=== PATIENT | female | born 1935 | race Caucasian/White ===

== ENCOUNTER 2017-03-25 00:37 | Inpatient (IN) ==
[2017-03-25] MEDS ORDERED: *HR* Morphine 2 MG/ML SYRINGE IVP PRN (04:01)
[2017-03-25] MEDS ORDERED: 0.9 % Sodium Chloride 1,000 ML IVC SCH (04:15)
[2017-03-25 04:37] LABS: Basophils % 0.2 %; Hematocrit 39.5 % (35.3-44.9); Hemoglobin 12.3 g/dL (11.5-15.4); Immature Granulocytes % 0.4 % (0-4); Lymphocytes # 1.2 K/mcL (0.6-4.6); Lymphocytes % 11.6 %; Mean Corpuscular HGB Conc 31.1 g/dL (31.6-35.5); Mean Corpuscular Volume 89.8 fL (83.0-100.0); Monocytes # 0.6 K/mcL (0.0-1.3); Monocytes % 5.6 %; Neutrophils # 8.6 K/mcL (1.6-8.9); Platelet Count 224 K/mcL (140-400); Red Cell Distribution Width 15.5 % (11.5-14.5); Segmented Neutrophils % 82.2 %
[2017-03-25 04:41] LABS: INR 1.1; Prothrombin Time 11.5 Seconds (9.4-12.1)
[2017-03-25 05:01] LABS: Activated Partial Thrombo Time 24.4 Seconds (26.0-36.0)
[2017-03-25 05:05] LABS: Albumin 3.9 g/dL (3.5-5.7); Albumin/Globulin Ratio 1.2 (1.1-2.2); Bilirubin,Total 0.4 mg/dL (0.3-1.0); Calcium 9.4 mg/dL (8.6-10.3); Globulin 3.2 g/dL (2.4-3.5); Total Protein 7.1 g/dL (6.4-8.9)
[2017-03-25] MEDS: Ondansetron 4 MG/2 ML VIAL IVP PRN ×2 (05:05→14:26)
[2017-03-25] MEDS ORDERED: *HR* Heparin 5,000 UNIT/ML VIAL SQ SCH (06:00)
[2017-03-25] MEDS ORDERED: Metoclopramide 10 MG/2 ML VIAL IVP PRN (08:17)
--- NOTE | 2017-03-25 08:28 | Internal Med History&Physical ---
Date of Encounter: 03/25/17 Time of Encounter: 08:25 Assessment and Plan (1) Intractable vomiting Current visit: No Status: Acute Likely related to hiatal hernia. Will give the patient Reglan and Zofran as needed. Appreciate gastroenterology input. Nurses mentioned that patient had coffee grounds emesis. Agent mentioned that there is no fresh blood in the vomitus. No Melena. We will keep the patient for now on protonix drip. Follow H&H. Qualifiers: Qualified Code(s): R11.10 - Vomiting, unspecified (2) UTI (urinary tract infection) Current visit: No Status: Acute Questionable UTI 5 to 15 white blood cells in urine and trace leukocyte esterase however lots of squamous cells. We will keep patient on ceftriaxone and get urine culture. Qualifiers: Qualified Code(s): N39.0 - Urinary tract infection, site not specified; R31.9 - Hematuria, unspecified; R31.9 - Hematuria, unspecified (3) Hypertensive urgency Current visit: No Status: Acute Diastolic blood pressure more than 110. We will get the patient hydralazine is needed. Because of complain of headache I will get a CT scan of the head. Internal Medicine - H&P: HPI Chief complaint: vomiting History of present illness: Ms. Leach is a 81 year old female patient presents to the emergency room today with the main complain of vomiting. For the past day patient has been having intractable vomiting of dark brown material. She denies any vomiting of fresh blood melena or hematochezia. She denies any abdominal pain fever or chills. Patient had similar episodes before and was thought to be related to her hiatal hernia. No chest pain. She did complain of left-sided headache but no other focal neurological deficits. Abdominal CT scan performed at outside facility showed a large hiatal hernia but no other abdominal pathologies Past Med Surg Social Fam HX - Past Medical History Medical history: hypertension, thyroid disease Psychiatric history: anxiety - Social History Smoking Status: Former smoker Alcohol use: none Drug use: none Internal Medicine - H&P: Meds Levothyroxine [Synthroid] 25 mcg PO DAILY 02/22/17 [History] Sertraline [Zoloft] 50 mg PO DAILY 02/22/17 [History] Lovastatin [Mevacor] 40 mg PO HS 03/24/17 [History] Ranitidine HCl [Zantac] 150 mg PO BID 03/24/17 [History] 3 Allergy/AdvReac Type Severity Reaction Status Date / Time rosuvastatin [From Crestor] Allergy Hives Verified 03/24/17 20:46 All Systems PM: A 10-system review of systems was performed and is negative for pertinent findings except as documented above in the HPI. Review of systems: 10 point review of systems is negative except for HPI - Constitutional Vitals: Temp Pulse Resp BP Pulse Ox 98.5 F 109 14 143/84 93 03/25/17 07:30 03/25/17 07:46 03/25/17 07:46 03/25/17 07:46 03/25/17 07:46 Exam: Gen.: patient is alert oriented times 3 not in distress. Cardiac: normal S1 S2 no additional sounds are murmurs. Chest: clear to auscultation. Abdomen: soft nontender nondistended. Lower extremity no swelling mucous membranes: moist Neuro: no focal deficits Internal Med - H&P Results - Labs CBC & Chem 7: 03/25/17 04:21 03/25/17 04:21 Labs: Short CBC 03/25/17 Range/Units 04:21 WBC 10.4 (4.3-11.1) K/mcL Hgb 12.3 (11.5-15.4) g/dL Hct 39.5 (35.3-44.9) % Plt Count 224 (140-400) K/mcL Neutrophils # 8.6 (1.6-8.9) K/mcL BMP 03/25/17 04:21 Sodium 144 Potassium 4.0 Chloride 105 Carbon Dioxide 30 H BUN 28 H Creatinine 1.11 Glucose 194 H Calcium 9.4 Liver Function 03/25/17 Range/Units 04:21 Total Bilirubin 0.4 (0.3-1.0) mg/dL AST 37 (13-39) Units/L ALT 23 (7-52) Units/L Alkaline Phosphatase 69 (34-104) Units/L Albumin 3.9 (3.5-5.7) g/dL
[2017-03-25 09:00] LABS: Hematocrit 40.9 % (35.3-44.9); Hemoglobin 12.6 g/dL (11.5-15.4)
[2017-03-25] MEDS ORDERED: cefTRIAXone 1,000 MG in Water for inj. (sterile) 10 ML IVP SCH (09:00)
[2017-03-25] MEDS ORDERED: Levothyroxine 25 MCG TABLET PO SCH (09:00)
[2017-03-25] MEDS: Pantoprazole 40 MG in 0.9 % Sodium Chloride Mini Bag 100 ML IVC SCH ×4 (09:43→23:30)
[2017-03-25] MEDS ORDERED: *HR* Promethazine 25 MG/ML VIAL IVP PRN ×2 (11:26→18:25)
[2017-03-25] MEDS ORDERED: *HR* Promethazine 25 MG/ML VIAL ONE (11:27)
[2017-03-25 14:23] LABS: Hematocrit 43.6 % (35.3-44.9); Hemoglobin 13.4 g/dL (11.5-15.4)
--- NOTE | 2017-03-25 14:35 | General Surgery Consult Note ---
Addendum entered and electronically signed by Adeline Bingham CNP 03/25/17 15: 49: 1. EKG consistent with atrial fib w/RVR, NSSTT wave changes at 1454 rates varying from 120s-140s. Bedside RN did not notify SOLAR SALES ENERGY ADVISOR of findings nor that EKG had been completed. This SOLAR SALES ENERGY ADVISOR reviewed EKG and subsequently Dr. Cameron notified. Will consult cardiology. 2. Dr. Pineda (radiology) notified this SOLAR SALES ENERGY ADVISOR that patient "aspirated all of her contrast and could not complete the upper GI." This SOLAR SALES ENERGY ADVISOR placed stat CXR 2-view orders and also notified Dr. Cameron (primary medicine of findings). Surgery will follow along with you, but again as noted below no surgical intervention is indicated at this time and any future procedures would be pending cardiovascular and pulmonary stabilization. Will review with Dr. Castillo. Original Note: <Adeline Bingham - Last Filed: 03/25/17 14:32> Date of Encounter: 03/25/17 Time of Encounter: 14:32 Assessment and Plan (1) Abdominal pain Current Visit: No Status: Acute Differential diagnosis include hiatal hernia vs acute gallbladder process vs upper G.I. bleed Plan: staff upper G.I. with Gastro gas and now to evaluate hiatal hernia noted/agree with right upper quadrant ultrasound per primary medicine hemoglobin is stable at this time; repeat and labs NPO IV fluids per primary team serial abdominal exams agree with PPI DVT prophylaxis per primary team further recommendations pending above Qualifiers: Abdominal location: upper abdomen, unspecified Qualified Code(s): R10.10 - Upper abdominal pain, unspecified (2) Intractable vomiting Current Visit: Yes Status: Acute Work up as detailed above. PRN antiemetics per primary team Qualifiers: Vomiting type: unspecified Nausea presence: with nausea Qualified Code(s) : R11.2 - Nausea with vomiting, unspecified (3) UTI (urinary tract infection) Current Visit: Yes Status: Acute Management per primary team Qualifiers: Qualified Code(s): N39.0 - Urinary tract infection, site not specified (4) Irregular heartbeat Current Visit: Yes Status: Acute Patient's cardiovascular history is unclear at this time. She denies any cardiovascular history however for medical review, her family doctor notes a "mild [place]" with no further details listed. Upon my examination she does have an irregularly irregular heartbeat as well as 3/6 systolic murmurs at the base with radiation to carotids vs carotid bruit. I did order an EKG. Recommend cardiovascular consult per primary team for preoperative risk stratification in the setting of possible development of surigcal indicattion ( i.e. hiatal hernia or cholecystectomy). History of Present Illness Consult date: 03/25/17 (Dr. Kayden Castillo) Reason for consult: other (Vomiting; hiatal hernia) Requesting physician: Doyle Cameron History of present illness: Subjective information obtained via patient interview, interview with daughters who are at bedside, and past medical review. Reason for Consult: intractable vomiting, concern for hiatal hernia, concern for cholelithiasis Anne Marie is an 81-year-old female with a past medical history of hypercholesterolemia, arthritis, osteopenia, iron deficiency, GERD, hypothyroidism, anxiety and depression, diverticulitis, anemia (for which she has previously required transfusion), in Guillain-William syndrome, colonic polyps , ASHD ("mild [place]" per family doctor note), hiatal hernia(known for "quite some time" per daughters at bedside). she has a surgical history of colonoscopy, total hysterectomy, and left ankle surgery. Her family history includes her father is 2/2 ETOH, mother is with diabetes, denies a colon cancer history. She denies alcohol, smoking, or drug use history. She was seen by Dr. Castillo in the office in 2013 at which time she reported her most previous colonoscopy was approximately 10 years ago and noted diverticulitis. She was recommended to complete a diagnostic colonoscopy. Per record review, an attempt was made to schedule a diagnostic colonoscopy in 2014 but patient refused. She presented to the emergency department on 03/24/2017 for complaints of vomiting dark brown material. She denied coffee ground emesis or cherri red blood in her vomitus. She reported that her abdominal discomfort and vomiting began shortly after eating on that date. Per chart review sheet also had left- sided headache but no other focal neurological deficits for which she had a CT of the head which indicated no acute intracranial abnormalities. She was admitted for further workup and support. Her hospital course thus far has included CT of the abdomen and pelvis without contrast which noticed a large hiatal hernia distended with particulate food material, cold diocese with multiple small calcified stones, left: diverticulosis with no evidence of diverticulitis, left and inguinal hernia containing a loop of rectosigmoid colon. Her hemoglobin is stable at 13.4, her white blood cell count is normal, bilirubin, AST, ALT, alkaline phosphatase, and lipase are all within normal limits. Currently, she denies headache, fever, chills, chest pain, shortness of breath, urinary signs or symptoms, black, bloody, or tarry stool, or changes in bowel habits. She reports feeling of lightheadedness, nausea, abdominal pain in the right upper quadrant that wraps around to her back, and vomiting dark material. Past Med Surg Social Fam HX - Past Medical History Source: patient, old records reviewed, obtained from family Medical history: arthritis, coronary artery disease, GERD, hyperlipidemia, hypertension, myocardial infarction, thyroid disease, other (Iron def anemia) Psychiatric history: anxiety, depression - Past Surgical History Surgical History: DARLENE/BSO, other (Left ankle surgery) - Social History Smoking Status: Former smoker Alcohol use: none Drug use: none - Family History Father Living Status: Mother Living Status: Medications and Allergies Levothyroxine [Synthroid] 25 mcg PO DAILY 02/22/17 [History] Sertraline [Zoloft] 50 mg PO DAILY 02/22/17 [History] Lovastatin [Mevacor] 40 mg PO HS 03/24/17 [History] Ranitidine HCl [Zantac] 150 mg PO BID 03/24/17 [History] Ascorbic Acid/Vit B12/Zinc [Sm Zinc Plus Lozenge] 1 tab PO DAILY 03/25/17 [ History] Aspirin [Lo-Dose Aspirin EC] 81 mg PO DAILY 03/25/17 [History] Ferrous Sulfate [Iron] 81 mg PO DAILY 03/25/17 [History] Multivitamin [One Daily Multivitamin] 1 tab PO DAILY 03/25/17 [History] Yale-3 Fatty Acids [Fish Oil] 300 mg PO DAILY 03/25/17 [History] 3 Allergy/AdvReac Type Severity Reaction Status Date / Time rosuvastatin [From Crestor] Allergy Hives Verified 03/24/17 20:46 Review of Systems All systems PM: reviewed and no additional remarkable complaints except as stated All systems PM: A 10-system review of systems was performed and is negative for pertinent findings except as documented above in the HPI. General Surgery Exam Initial Vital Signs Temp Pulse Resp BP Pulse Ox 97.6 F 102 16 162/106 93 03/25/17 02:27 03/25/17 02:27 03/25/17 02:27 03/25/17 02:27 03/25/17 02:27 - General physical appearance no distress, moderate pain, other (Ill appearing) - Eyes normal ocular movement - ENT normal mucosa, no congestion, atraumatic, normocephalic - Neck trachea midline, no venous distension. negative: no bruits (Bruit noted) - Respiratory normal expansion, normal respiratory effort, clear to auscultation - Cardiovascular Cardiovascular exam: Present: irregular rhythm, murmurs (3/6 sytolic murmur at the base with radiation to carotids vs carotid bruit) - Abdomen Abdomen general surgery: Present: bowel sounds present, soft, tender Abdominal Tenderness: Present: RUQ, LUQ Hernia: Present: none - Integumentary Integumentary general surgery: Present: warm and dry, no abnormal pigmentation - Neurologic Present: CN 2-12 grossly intact, normal coordination, normal sensation - Musculoskeletal Present: normal posture - Psychiatric Psychiatric general surgery: Present: A&Ox3, appropriate, oriented to person, oriented to place, oriented to time, speech is normal, memory intact Exam Initial Vital Signs Temp Pulse Resp BP Pulse Ox 97.6 F 102 16 162/106 93 03/25/17 02:27 03/25/17 02:27 03/25/17 02:27 03/25/17 02:27 03/25/17 02:27 Results - Labs 03/25/17 13:51 03/25/17 04:21 Abnormal lab results MCHC 31.1 g/dL (31.6-35.5) L 03/25/17 04:21 RDW 15.5 % (11.5-14.5) H 03/25/17 04:21 APTT 24.4 Seconds (26.0-36.0) L 03/25/17 04:21 Carbon Dioxide 30 mEq/L (23-29) H 03/25/17 04:21 BUN 28 mg/dL (8-23) H 03/25/17 04:21 Est GFR ( Amer) 57 (> 60) L 03/25/17 04:21 Est GFR (Non-Af Amer) 47 (> 60) L 03/25/17 04:21 Glucose 194 mg/dL (70-105) H 03/25/17 04:21 Calculated Osmolality 309 (280-300) H 03/25/17 04:21 Diabetes panel 03/25/17 Range/Units 04:21 Sodium 144 (136-145) mEq/L Potassium 4.0 (3.5-5.1) mEq/L Chloride 105 (98-107) mEq/L Carbon Dioxide 30 H (23-29) mEq/L BUN 28 H (8-23) mg/dL Creatinine 1.11 (0.60-1.20) mg/dL Glucose 194 H (70-105) mg/dL Calcium 9.4 (8.6-10.3) mg/dL AST 37 (13-39) Units/L ALT 23 (7-52) Units/L Alkaline Phosphatase 69 (34-104) Units/L Albumin 3.9 (3.5-5.7) g/dL Calcium panel 03/25/17 Range/Units 04:21 Calcium 9.4 (8.6-10.3) mg/dL Albumin 3.9 (3.5-5.7) g/dL Pituitary panel 03/25/17 Range/Units 04:21 Sodium 144 (136-145) mEq/L Potassium 4.0 (3.5-5.1) mEq/L Chloride 105 (98-107) mEq/L Carbon Dioxide 30 H (23-29) mEq/L BUN 28 H (8-23) mg/dL Creatinine 1.11 (0.60-1.20) mg/dL Glucose 194 H (70-105) mg/dL Calcium 9.4 (8.6-10.3) mg/dL Adrenal panel 03/25/17 Range/Units 04:21 Sodium 144 (136-145) mEq/L Potassium 4.0 (3.5-5.1) mEq/L Chloride 105 (98-107) mEq/L Carbon Dioxide 30 H (23-29) mEq/L BUN 28 H (8-23) mg/dL Creatinine 1.11 (0.60-1.20) mg/dL Glucose 194 H (70-105) mg/dL Calcium 9.4 (8.6-10.3) mg/dL Total Bilirubin 0.4 (0.3-1.0) mg/dL AST 37 (13-39) Units/L ALT 23 (7-52) Units/L Alkaline Phosphatase 69 (34-104) Units/L Albumin 3.9 (3.5-5.7) g/dL All other labs normal. - Imaging CT scan - abdomen: report reviewed CT scan - pelvis: report reviewed Consult Discharge Plan - Plan Referrals: Memo Cody MD [Primary Care Provider] - <Kayden Castillo - Last Filed: 03/25/17 19:21> Date of Encounter: 03/25/17 Review of Systems All systems PM: A 10-system review of systems was performed and is negative for pertinent findings except as documented above in the HPI. General Surgery Exam Initial Vital Signs Temp Pulse Resp BP Pulse Ox 97.6 F 102 16 162/106 93 03/25/17 02:27 03/25/17 02:27 03/25/17 02:27 03/25/17 02:27 03/25/17 02:27 Exam Initial Vital Signs Temp Pulse Resp BP Pulse Ox 97.6 F 102 16 162/106 93 03/25/17 02:27 03/25/17 02:27 03/25/17 02:27 03/25/17 02:27 03/25/17 02:27 Results - Labs 03/25/17 13:51 03/25/17 04:21 Abnormal lab results MCHC 31.1 g/dL (31.6-35.5) L 03/25/17 04:21 RDW 15.5 % (11.5-14.5) H 03/25/17 04:21 APTT 24.4 Seconds (26.0-36.0) L 03/25/17 04:21 Carbon Dioxide 30 mEq/L (23-29) H 03/25/17 04:21 BUN 28 mg/dL (8-23) H 03/25/17 04:21 Est GFR ( Amer) 57 (> 60) L 03/25/17 04:21 Est GFR (Non-Af Amer) 47 (> 60) L 03/25/17 04:21 Glucose 194 mg/dL (70-105) H 03/25/17 04:21 POC Glucose 144 (58-89) H 03/25/17 18:22 Calculated Osmolality 309 (280-300) H 03/25/17 04:21 Diabetes panel 03/25/17 Range/Units 04:21 Sodium 144 (136-145) mEq/L Potassium 4.0 (3.5-5.1) mEq/L Chloride 105 (98-107) mEq/L Carbon Dioxide 30 H (23-29) mEq/L BUN 28 H (8-23) mg/dL Creatinine 1.11 (0.60-1.20) mg/dL Glucose 194 H (70-105) mg/dL Calcium 9.4 (8.6-10.3) mg/dL AST 37 (13-39) Units/L ALT 23 (7-52) Units/L Alkaline Phosphatase 69 (34-104) Units/L Albumin 3.9 (3.5-5.7) g/dL Calcium panel 03/25/17 Range/Units 04:21 Calcium 9.4 (8.6-10.3) mg/dL Albumin 3.9 (3.5-5.7) g/dL Pituitary panel 03/25/17 Range/Units 04:21 Sodium 144 (136-145) mEq/L Potassium 4.0 (3.5-5.1) mEq/L Chloride 105 (98-107) mEq/L Carbon Dioxide 30 H (23-29) mEq/L BUN 28 H (8-23) mg/dL Creatinine 1.11 (0.60-1.20) mg/dL Glucose 194 H (70-105) mg/dL Calcium 9.4 (8.6-10.3) mg/dL Adrenal panel 03/25/17 Range/Units 04:21 Sodium 144 (136-145) mEq/L Potassium 4.0 (3.5-5.1) mEq/L Chloride 105 (98-107) mEq/L Carbon Dioxide 30 H (23-29) mEq/L BUN 28 H (8-23) mg/dL Creatinine 1.11 (0.60-1.20) mg/dL Glucose 194 H (70-105) mg/dL Calcium 9.4 (8.6-10.3) mg/dL Total Bilirubin 0.4 (0.3-1.0) mg/dL AST 37 (13-39) Units/L ALT 23 (7-52) Units/L Alkaline Phosphatase 69 (34-104) Units/L Albumin 3.9 (3.5-5.7) g/dL All other labs normal. - Attending Attestation The patient was seen and evaluated. She has abnormal CAT scan with a very large hiatal hernia. The patient has known about this for many years. She states that she has not had problems with her hiatal hernia however she has had difficulty with anemia, weight loss, dysphagia, and early satiety which I would typify as significant problems with her hiatal hernia. I personally reviewed the CAT scan. This is likely a large paraesophageal hernia. At this point we tried to perform testing earlier today to rule out acute gastric obstruction from volvulus. The patient aspirated. She is now in the intensive unit. I was able to evaluate her in the intensive care unit. She is not having any breathing difficulties. Tonight she is having no abdominal pain. She has nasogastric tube in place. Likely the stomach is decompressed. She has acute onset atrial fibrillation with RVR. She likely has intermittent gastric obstruction and possibly gastric volvulus. She will require acute treatment for her atrial fibrillation RVR. 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
[2017-03-25] MEDS ORDERED: *HR* Promethazine 25 MG/ML VIAL IVP ONE (14:42)
[2017-03-25] MEDS ORDERED: *HR* Digoxin 0.5 MG/2 ML AMPUL IVP ONE ×2 (15:53→18:25)
[2017-03-25] MEDS ORDERED: *HR* Metoprolol 5 MG/5 ML VIAL IVP SCH ×2 (16:15→18:00)
[2017-03-25] MEDS ORDERED: *HR* Metoprolol 5 MG/5 ML VIAL IVP ONE (16:16)
--- NOTE | 2017-03-25 16:22 | Event Note ---
Date of Encounter: 03/25/17 Time of Encounter: 16:20 - Cardiology Event Note Discussed with Dr. Bernard, call for afib RVR 110's - 120's on tele currently in setting of intractable vomiting and concern for aspiration. Meds reviewed, appears to have not received IV digoxin x 1 as ordered or any doses of IV Lopressor today. Will increase IV Lopressor to 5mg every 6 hrs, first dose now- - current SBP 120's. Currently not taking PO Meds. Suspect afib RVR in response to N&V. Plan to check echo in am once HR controlled. Complete consulted to be completed in am.
[2017-03-25] MEDS ORDERED: Piperacillin/Tazobactam 3.375 GM/200 ML BAG IVPB SCH (17:00)
--- NOTE | 2017-03-25 17:37 | Pulmonology Consult Note ---
<Tom Reeves - Last Filed: 03/25/17 18:15> Date of Encounter: 03/25/17 Time of Encounter: 17:35 Assessment and Plan (1) Aspiration into respiratory tract Current Visit: Yes Status: Acute Patient was noted to aspirate all of her contrast and could not complete the upper GI study. NG tube was placed. Subsequent chest x-ray demonstrates opacities consistent with aspiration. On evaluation, patient is in no acute distress and denies any shortness of breath or chest pain. Patient however does have some bilateral crackles. Vital signs stable Plan: Oxygen supplementation Nothing by mouth NG tube Patient will need a speech therapy consult Patient is started on Zosyn for anaerobic coverage There is a high concern for developing pneumonitis will closely monitor throughout the night Qualifiers: Encounter type: initial encounter Qualified Code(s): T17.908A - Unspecified foreign body in respiratory tract, part unspecified causing other injury, initial encounter (2) New onset atrial fibrillation Current Visit: Yes Status: Acute Status post upper GI series involving aspiration and nausea and vomiting, patient was seen to have new onset A. fib with RVR 120s Cardiology was notified and recommended Lopressor 5 mg once followed by 5 mg IV every 6 hours - Full consultation and recommendations will follow tomorrow morning - Ordered echo for the morning - Cardiac Monitoring - HR down to 90s after transfer (3) Intractable vomiting Current Visit: Yes Status: Acute Pending right upper quadrant ultrasound CCT of the abdomen and pelvis without contrast: - Large hiatal hernia distended with particulate food material, cholelithiasis with multiple small calcified stones as well as left-sided diverticulosis. - There is a left inguinal hernia containing a loop of rectosigmoid colon. LFTs unremarkable Negative lipase PPI Nothing by mouth IVF Serial abdominal exams NG tube - management per surgery team Qualifiers: Vomiting type: unspecified Nausea presence: with nausea Qualified Code(s) : R11.2 - Nausea with vomiting, unspecified (4) UTI (urinary tract infection) Current Visit: Yes Status: Acute IV Zosyn will cover Appears to be resolving Denies any dysuria Qualifiers: Urinary tract infection type: acute cystitis Hematuria presence: without hematuria Qualified Code(s): N30.00 - Acute cystitis without hematuria (5) Hiatal hernia Current Visit: Yes Status: Acute Management per surgery team (6) DVT prophylaxis Current Visit: Yes Status: Acute Heparin subcutaneous 5000 units every 12 hours History of Present Illness History of present illness: Ms. Leach is a very pleasant 81-year-old female with a past history of hiatal hernia, hypercholesterolemia, arthritis, osteopenia, iron deficiency, GERD, hypothyroidism, anxiety, depression, diverticulitis and anemia who presented to the [facility] emergency department on 03/24/17 complaints of intractable vomiting of dark brown material. She denied any coffee-ground emesis or cherri blood in her vomitus. Additionally, she reported that her abdominal discomfort and vomiting began shortly after eating. Patient has a [id number] smoking history but she quit roughly 10 years ago. She denies any alcohol or drug use. She was really admitted for further workup and intervention. CT of the abdomen and pelvis without contrast demonstrated a large hiatal hernia distended with particulate food material, cholelithiasis with multiple small calcified stones as well as left-sided diverticulosis. There is a left inguinal hernia containing a loop of rectosigmoid colon. Initial lab work demonstrated hemoglobin stable at 13.4, no leukocytosis, normal liver enzymes as well as negative lipase. She was also found to have a UTI and was started on ceftriaxone. Right upper quadrant ultrasound pending. Gen. surgery was consulted and recommended upper GI with gastro. Of note, during the upper GI series patient was noted to aspirate all of her contrast and could not complete the upper GI study. NG tube was placed. At that time, patient additionally was found to be in new A. fib with RVR with heart rate in the 120s and cardiology was consulted. Subsequent chest x-ray demonstrates opacities consistent with aspiration. There is a concern for possible developing pneumonitis and thus, pulmonary/critical care team was consulted. On evaluation, patient is in no acute distress and denies any shortness of breath or chest pain. Patient however does have some bilateral crackles and given her new A. fib with RVR in the setting of aspiration/intractable vomiting , we will transfer her to the dentist care unit for close monitoring throughout the night. Past Med Surg Social Fam HX - Past Medical History Medical history: arthritis, coronary artery disease, GERD, hyperlipidemia, hypertension, myocardial infarction, thyroid disease, other (Iron def anemia) Psychiatric history: anxiety, depression - Past Surgical History Surgical History: DARLENE/BSO, other (Left ankle surgery) - Social History Smoking Status: Former smoker Alcohol use: none Drug use: none - Family History Father Living Status: Mother Living Status: Medications and Allergies Levothyroxine [Synthroid] 25 mcg PO DAILY 02/22/17 [History] Sertraline [Zoloft] 50 mg PO DAILY 02/22/17 [History] Lovastatin [Mevacor] 40 mg PO HS 03/24/17 [History] Ranitidine HCl [Zantac] 150 mg PO BID 03/24/17 [History] Ascorbic Acid/Vit B12/Zinc [Sm Zinc Plus Lozenge] 1 tab PO DAILY 03/25/17 [ History] Aspirin [Lo-Dose Aspirin EC] 81 mg PO DAILY 03/25/17 [History] Ferrous Sulfate [Iron] 81 mg PO DAILY 03/25/17 [History] Multivitamin [One Daily Multivitamin] 1 tab PO DAILY 03/25/17 [History] [place]-3 Fatty Acids [Fish Oil] 300 mg PO DAILY 03/25/17 [History] 3 Allergy/AdvReac Type Severity Reaction Status Date / Time rosuvastatin [From Crestor] Allergy Hives Verified 03/24/17 20:46 All Systems: A 10-system review of systems was performed and is negative for pertinent findings except as documented above in the HPI. - Constitutional Constitutional: no fever(s) - EENT Nose, mouth and throat: no headache(s) - Cardiovascular Cardiovascular: no chest pain - Respiratory Respiratory: no cough - Gastrointestinal Gastrointestinal: no abdominal pain - Genitourinary Genitourinary: no dysuria - Musculoskeletal Musculoskeletal: no weakness - Neurological Neurological: no headache(s) - Psychiatric Psychiatric: anxiety - Endocrine Endocrine: no palpitations Physical Examination Vital Signs: Vital Signs, Last 4 Hours Temp Pulse Resp BP Pulse Ox 03/25/17 16:38 97.9 F 114 20 125/73 94 General appearance: no acute distress Eyes: nonicteric ENT: oropharynx moist (NGT present) Effort: normal Inspection: normal Auscultation: right: diminished breath sounds (crackles) Cardiovascular: irregular rhythm Gastrointestinal: normoactive bowel sounds, soft, non-tender, non-distended Integumentary: normal Extremities: no cyanosis, no edema, no clubbing Musculoskeletal: no deformities, ROM normal normal mental status, non-focal exam mood appropriate, affect normal Results - Laboratory Findings CBC and BMP: 03/25/17 13:51 03/25/17 04:21 PT/INR, D-dimer PT 11.5 Seconds (9.4-12.1) 03/25/17 04:21 Abnormal lab findings: Abnormal lab results MCHC 31.1 g/dL (31.6-35.5) L 03/25/17 04:21 RDW 15.5 % (11.5-14.5) H 03/25/17 04:21 APTT 24.4 Seconds (26.0-36.0) L 03/25/17 04:21 Carbon Dioxide 30 mEq/L (23-29) H 03/25/17 04:21 BUN 28 mg/dL (8-23) H 03/25/17 04:21 Est GFR ( Amer) 57 (> 60) L 03/25/17 04:21 Est GFR (Non-Af Amer) 47 (> 60) L 03/25/17 04:21 Glucose 194 mg/dL (70-105) H 03/25/17 04:21 Calculated Osmolality 309 (280-300) H 03/25/17 04:21 - Diagnostic Findings Chest x-ray: report reviewed, image reviewed - Clinical Findings Intake & Output: Intake & Output 03/25/17 03/25/17 03/25/17 07:59 15:59 23:59 Intake Total 0 / 0 100 / 100 Output Total 0 / 0 300 / 300 Balance 0 / 0 -200 / -200 Weight 68 kg Consult Discharge Plan - Plan Referrals: Memo Cody MD [Primary Care Provider] - <Piotr Francois - Last Filed: 03/25/17 21:45> Date of Encounter: 03/25/17 All Systems: A 10-system review of systems was performed and is negative for pertinent findings except as documented above in the HPI. Physical Examination Vital Signs: Vital Signs, Last 4 Hours Temp Pulse Resp BP Pulse Ox 03/25/17 18:41 102 03/25/17 18:28 95 03/25/17 18:13 98.6 F 102 18 157/73 95 03/25/17 16:38 97.9 F 114 20 125/73 94 Results - Laboratory Findings CBC and BMP: 03/25/17 20:20 03/25/17 04:21 PT/INR, D-dimer PT 11.5 Seconds (9.4-12.1) 03/25/17 04:21 Abnormal lab findings: Abnormal lab results MCHC 31.1 g/dL (31.6-35.5) L 03/25/17 04:21 RDW 15.5 % (11.5-14.5) H 03/25/17 04:21 APTT 24.4 Seconds (26.0-36.0) L 03/25/17 04:21 Carbon Dioxide 30 mEq/L (23-29) H 03/25/17 04:21 BUN 28 mg/dL (8-23) H 03/25/17 04:21 Est GFR ( Amer) 57 (> 60) L 03/25/17 04:21 Est GFR (Non-Af Amer) 47 (> 60) L 03/25/17 04:21 Glucose 194 mg/dL (70-105) H 03/25/17 04:21 POC Glucose 144 (58-89) H 03/25/17 18:22 Calculated Osmolality 309 (280-300) H 03/25/17 04:21 - Clinical Findings Intake & Output: Intake & Output 03/25/17 03/25/17 03/25/17 07:59 15:59 23:59 Intake Total 0 / 0 100 / 100 0 / 0 Output Total 0 / 0 300 / 300 Balance 0 / 0 -200 / -200 0 / 0 Weight 68 kg - Attending Attestation I examined this patient and my medical decision-making was reviewed with the Resident Physician. I agree with the documented findings, disposition and treatment plan as described except to the extent set forth below. Patient seen and examined. Surgery HOTEL FRONT DESK AGENT consulted us to see this patient and we evaluated patient in . Labs, radiology, chart personally reviewed. Agree with resident's history and physical, assessment, plan with following comments: EDUCATION PROGRAM MANAGER: Patient follows commands, Pulmonary: Acceptable oxygenation and ventilation. At this time patient is not at any immediate risk for respiratory failure, but need close monitoring. Empiric coverage with antibiotic. Discussed with family. Cardiovascular: Rate control for suspect A. fib. Will need cardiac evaluation. Cardiac enzymes and echo GI: Nutrition per dietary and GI prophylaxis per routine. Patient has NG and surgery follow up. Heme: DVT prophylaxis per routine ID: Continue antibiotics and plan to de-escalation Renal; urine out put and renal funtion reviewed Endorcine: blood glucose is monitored Lines: all lines checked and no evidence of infections Skin: skin care to prevent pressure ulcers per nursing routine care Discussed with family at bedside.
--- NOTE | 2017-03-25 17:52 | Event Note ---
Date of Encounter: 03/25/17 Time of Encounter: 17:50 Transfer patient to ICU for gastrograffin aspiration. Hospitalist primary and Cardiology following. NG placed d/t patient vomiting. Verify placement per KUB pending. Continue NG to LIWS and NPO status. Updated daughter's at bedside.
[2017-03-25] MEDS ORDERED: Ondansetron 4 MG/2 ML VIAL IVP PRN (18:25)
[2017-03-25] MEDS ORDERED: Dexamethasone 4 MG/ML VIAL IVP ONE (19:46)
[2017-03-25] MEDS: 0.9 % Sodium Chloride 1,000 ML IVC SCH (19:59)
[2017-03-25 21:19] LABS: Hematocrit 38.8 % (35.3-44.9); Hemoglobin 11.6 g/dL (11.5-15.4)
[2017-03-25] MEDS: *HR* Metoprolol 5 MG/5 ML VIAL IVP SCH (23:30)
[2017-03-26] MEDS: *HR* Metoprolol 5 MG/5 ML VIAL IVP SCH ×6 (00:33→17:55)
[2017-03-26] MEDS: Piperacillin/Tazobactam 3.375 GM/200 ML BAG IVPB SCH ×3 (01:51→17:20)
[2017-03-26] MEDS: Pantoprazole 40 MG in 0.9 % Sodium Chloride Mini Bag 100 ML IVC SCH ×2 (01:53→06:48)
[2017-03-26] MEDS: *HR* Morphine 2 MG/ML SYRINGE IVP PRN (03:18)
[2017-03-26] MEDS: 0.9 % Sodium Chloride 1,000 ML IVC SCH ×3 (03:18→16:13)
[2017-03-26 05:29] LABS: Basophils % 0.1 %; Hematocrit 35.3 % (35.3-44.9); Hemoglobin 10.5 g/dL (11.5-15.4); Immature Granulocytes % 0.1 % (0-4); Lymphocytes # 1.1 K/mcL (0.6-4.6); Lymphocytes % 12.8 %; Mean Corpuscular HGB Conc 29.7 g/dL (31.6-35.5); Mean Corpuscular Hemoglobin 27.6 pg (28.0-33.3); Mean Corpuscular Volume 92.9 fL (83.0-100.0); Mean Platelet Volume 10.2 fL (9.4-12.4); Monocytes # 0.7 K/mcL (0.0-1.3); Monocytes % 8.8 %; Neutrophils # 6.5 K/mcL (1.6-8.9); Platelet Count 177 K/mcL (140-400); Red Cell Distribution Width 16.4 % (11.5-14.5); Segmented Neutrophils % 78.2 %
[2017-03-26 06:07] LABS: Platelet Estimate Normal (Normal)
[2017-03-26 06:10] LABS: BUN/Creatinine Ratio 38 (6-26); Blood Urea Nitrogen 33 mg/dL (8-23); Calcium 7.7 mg/dL (8.6-10.3); Carbon Dioxide 29 mEq/L (23-29); Chloride 113 mEq/L (98-107); Glucose 125 mg/dL (70-105); Magnesium 1.9 mg/dL (1.6-2.6); Osmolality,Calculated 321 (280-300); Potassium 3.2 mEq/L (3.5-5.1); Sodium 151 mEq/L (136-145); eGFR For African Americans > 60 (> 60); eGFR For Non-African Americans > 60 (> 60)
--- NOTE | 2017-03-26 06:50 | Pulmonology Progress Note ---
Addendum entered and electronically signed by Tom Reeves DO 03/26/17 11:45: Starting TPN and adding LDSS insulin coverage. PICC line will be placed. Original Note: <Tom Reeves - Last Filed: 03/26/17 11:37> Date of Encounter: 03/26/17 Time of Encounter: 07:32 Assessment and Plan (1) 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 Current Visit: Yes Status: Acute Patient was noted to aspirate all of her Gastrograffin and could not complete the upper GI study. NG tube was placed. Subsequent chest x-ray demonstrates opacities consistent with aspiration. Patient is hemodynamically stable Noted to have worsening dyspnea and required BiPAP throughout the night. One- time dose of Decadron was given. BiPAP was removed and she desaturated to the 80s less than 1 minute. Plan: Continuation of BiPAP as necessary but patient has been tolerating high flow oxygen this morning Nothing by mouth NG tube Zosyn for anaerobic coverage Started Solu-Medrol 6 mg every 8 hours Duonbes q4 with symbicort Ordered Chest CT - Pending There is a high concern for acute respiratory failure with possible intubation and will closely monitor throughout the day (2) Aspiration into respiratory tract Current Visit: Yes Status: Acute See above (3) New onset atrial fibrillation Current Visit: Yes Status: Acute Status post upper GI series involving aspiration and nausea and vomiting, patient was seen to have new onset A. 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 for Wednesday pending resolution of her suspected pneumonitis from gastrograffin aspiration and new atrial fibrillation (6) DVT prophylaxis Current Visit: Yes Status: Acute Heparin subcutaneous 5000 units every 12 hours Subjective Principal diagnosis: aspiration Interval history: Patient was transferred to the ICU last night after aspiration of gastrograffin Patient reported that she required BiPAP throughout the night and descended Objective PUL Vital signs: Last Vital Signs Temp 98.0 F 03/26/17 05:21 Pulse 85 03/26/17 06:00 Resp 15 03/26/17 06:32 BP 133/83 03/26/17 06:32 Pulse Ox 95 03/26/17 06:32 Results - Laboratory Findings CBC and BMP: 03/26/17 05:10 03/26/17 05:10 PT/INR, D-dimer PT 11.5 Seconds (9.4-12.1) 03/25/17 04:21 Abnormal lab findings: Abnormal lab results RBC 3.80 M/mcL (3.82-4.97) L 03/26/17 05:10 Hgb 10.5 g/dL (11.5-15.4) L 03/26/17 05:10 MCH 27.6 pg (28.0-33.3) L 03/26/17 05:10 MCHC 29.7 g/dL (31.6-35.5) L 03/26/17 05:10 RDW 16.4 % (11.5-14.5) H 03/26/17 05:10 APTT 24.4 Seconds (26.0-36.0) L 03/25/17 04:21 Sodium 151 mEq/L (136-145) H 03/26/17 05:10 Potassium 3.2 mEq/L (3.5-5.1) L 03/26/17 05:10 Chloride 113 mEq/L (98-107) H 03/26/17 05:10 BUN 33 mg/dL (8-23) H 03/26/17 05:10 BUN/Creatinine Ratio 38 (6-26) H 03/26/17 05:10 Glucose 125 mg/dL (70-105) H 03/26/17 05:10 POC Glucose 144 (58-89) H 03/25/17 18:22 Calculated Osmolality 321 (280-300) H 03/26/17 05:10 Calcium 7.7 mg/dL (8.6-10.3) L 03/26/17 05:10 - Clinical Findings Intake & Output: Intake & Output 03/25/17 03/25/17 03/26/17 15:59 23:59 07:59 Intake Total 100 / 100 1100 / 1100 1400 / 1400 Output Total 300 / 300 275 / 275 425 / 425 Balance -200 / -200 825 / 825 975 / 975 Weight 67.9 kg Consult Discharge Plan - Plan Referrals: Memo Cody MD [Primary Care Provider] - <Piotr Francois - Last Filed: 03/26/17 15:51> Date of Encounter: 03/26/17 Objective PUL Vital signs: Last Vital Signs Temp 98.8 F 03/26/17 12:24 Pulse 95 03/26/17 15:00 Resp 18 03/26/17 15:00 BP 134/77 03/26/17 15:00 Pulse Ox 95 03/26/17 15:00 Results - Laboratory Findings CBC and BMP: 03/26/17 05:10 03/26/17 05:10 PT/INR, D-dimer PT 11.5 Seconds (9.4-12.1) 03/25/17 04:21 Abnormal lab findings: Abnormal lab results RBC 3.80 M/mcL (3.82-4.97) L 03/26/17 05:10 Hgb 10.5 g/dL (11.5-15.4) L 03/26/17 05:10 MCH 27.6 pg (28.0-33.3) L 03/26/17 05:10 MCHC 29.7 g/dL (31.6-35.5) L 03/26/17 05:10 RDW 16.4 % (11.5-14.5) H 03/26/17 05:10 APTT 24.4 Seconds (26.0-36.0) L 03/25/17 04:21 Sodium 151 mEq/L (136-145) H 03/26/17 05:10 Potassium 3.2 mEq/L (3.5-5.1) L 03/26/17 05:10 Chloride 113 mEq/L (98-107) H 03/26/17 05:10 BUN 33 mg/dL (8-23) H 03/26/17 05:10 BUN/Creatinine Ratio 38 (6-26) H 03/26/17 05:10 Glucose 125 mg/dL (70-105) H 03/26/17 05:10 POC Glucose 121 (58-89) H 03/26/17 11:45 Calculated Osmolality 321 (280-300) H 03/26/17 05:10 Calcium 7.7 mg/dL (8.6-10.3) L 03/26/17 05:10 Troponin I 0.07 ng/mL (< 0.04) H* 03/26/17 15:03 B-Natriuretic Peptide 252 pg/mL (Less than 100) H 03/26/17 10:56 - Clinical Findings Intake & Output: Intake & Output 03/25/17 03/26/17 03/26/17 23:59 07:59 15:59 Intake Total 1100 / 1100 1400 / 1400 200 / 200 Output Total 275 / 275 775 / 775 300 / 300 Balance 825 / 825 625 / 625 -100 / -100 Weight 67.9 kg 68 kg - Attending Attestation I examined this patient and my medical decision-making was reviewed with the Resident Physician. I agree with the documented findings, disposition and treatment plan as described except to the extent set forth below. Patient seen and examined. Labs, radiology, chart personally reviewed. Agree with resident's history and physical, assessment, plan with following comments: SHIP ENGINES OPERATING ENGINEER: Patient follows commands, Pulmonary: Acceptable oxygenation and ventilation on the noninvasive ventilation. Empiric antibiotics and systemic steroid for possible pneumonitis/ pneumonia. Adding bronchodilators. Cardiovascular: Cardiology has assessed the patient GI: Nutrition per dietary and GI prophylaxis per routine. Patient will remain nothing by mouth and she will need TPN. Discussed with Dr. Castillo in patient will remain in ICU. Heme: DVT prophylaxis per routine ID: Continue antibiotics and plan to de-escalation Renal; urine out put and renal funtion reviewed Endorcine: blood glucose is monitored Lines: all lines checked and no evidence of infections Skin: skin care to prevent pressure ulcers per nursing routine care Discussed with the family at the bedside.
--- NOTE | 2017-03-26 07:27 | General Surgery Progress Note ---
Date of Encounter: 03/26/17 Time of Encounter: 07:27 - Assessment and Plan (1) Aspiration into respiratory tract Current Visit: Yes Status: Acute s/p aspiration with Gastograffin -Recommend aggressive treatment for concern for respiratory failure while in ICU. She will additionally require acute treatment for her atrial fibrillation RVR. -She likely has intermittent gastric obstruction with a possible gastric volvulus. 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 03/25 and 03/26 X-Ray images reviewed with attending Jonathan this AM. -Currently deem patient not stable for surgical intervention for hernia. Pending on recurrent evaluation of clinical status, may plan for surgery when stable Qualifiers: Encounter type: initial encounter Qualified Code(s): T17.908A - Unspecified foreign body in respiratory tract, part unspecified causing other injury, initial encounter (2) New onset atrial fibrillation Current Visit: Yes Status: Acute Remains in Afib this AM. Management per cardiology. 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 Currently not surgical candidate s/p aspiration and new-onset Afib. (4) DVT prophylaxis Current Visit: Yes Status: Acute Per protocol. Management per primary team. Subjective Patient reports: afebrile Narrative: Pt required BIPAP overnight due to increasing oxygen requirement. This AM remains on oxymask. Responsive to conversation. Objective Vital Signs - Last 8 Hours Temp Pulse Resp BP Pulse Ox 03/26/17 06:32 15 133/83 95 03/26/17 06:00 85 20 130/82 95 03/26/17 05:21 98.0 F 03/26/17 05:00 101 18 131/84 95 03/26/17 04:00 99 18 132/87 95 03/26/17 03:19 104 03/26/17 03:00 106 18 133/77 94 03/26/17 02:00 91 20 147/87 97 03/26/17 01:00 98 24 160/98 96 03/26/17 00:59 97.9 F 03/26/17 00:00 115 21 151/90 90 Intake and Output 01/18/18 01/18/18 01/19/18 15:59 23:59 07:59 Intake Total 100 / 100 1100 / 1100 1400 / 1400 Output Total 300 / 300 275 / 275 775 / 775 Balance -200 / -200 825 / 825 625 / 625 Intake: IV Fluids 100 / 100 1100 / 1100 1400 / 1400 0.9 % Sodium Chloride 1,000 ML 1000 / 1000 1000 / 1000 @ 100 mls/hr IVC .Q10H TANYA Rx#: [id number] Protonix 40 MG In 0.9 % Sodium 100 / 100 100 / 100 200 / 200 Chloride (Mini-Bag +) 100 ML @ 20 mls/hr IVC .Q5H TANYA Rx#: [id number] Zosyn Premix 3.375 GM/200 ML 3. 200 / 200 375 gm In 200 ml @ 50 mls/hr IVPB Q8H TANYA Rx#:[id number] Oral 0 / 0 0 / 0 Output: Emesis 300 / 300 Catheter 275 / 275 425 / 425 Gastric Drainage 350 / 350 Other: Meal Lunch Percent of Meal Consumed 0% Weight 67.9 kg Blood Glucose* 144 Patient Weight 03/26/17 23:59 Weight 67.9 kg - General physical appearance other (Pt lying in hospital bed, with oxymask. Responsive to conversation. ) - Eyes normal ocular movement - ENT Other (NG tube in place ) - Respiratory other wheezing: bilateral (more severe on L side) - Cardiovascular Cardiovascular exam: Present: irregular rhythm. Absent: clicks, rubs - Abdomen Abdomen: Present: soft Additional Comments: Bowel sounds appreciated in upper chest area. Soft. Non-tender on light palpation. - Genitourinary other ([place] draining) - Integumentary no abnormal pigmentation - Labs 03/26/17 05:10 03/26/17 05:10 Diabetes panel 03/26/17 Range/Units 05:10 Sodium 151 H (136-145) mEq/L Potassium 3.2 L (3.5-5.1) mEq/L Chloride 113 H (98-107) mEq/L Carbon Dioxide 29 (23-29) mEq/L BUN 33 H (8-23) mg/dL Creatinine 0.87 (0.60-1.20) mg/dL Glucose 125 H (70-105) mg/dL Calcium 7.7 L (8.6-10.3) mg/dL Calcium panel 03/26/17 Range/Units 05:10 Calcium 7.7 L (8.6-10.3) mg/dL Pituitary panel 03/26/17 Range/Units 05:10 Sodium 151 H (136-145) mEq/L Potassium 3.2 L (3.5-5.1) mEq/L Chloride 113 H (98-107) mEq/L Carbon Dioxide 29 (23-29) mEq/L BUN 33 H (8-23) mg/dL Creatinine 0.87 (0.60-1.20) mg/dL Glucose 125 H (70-105) mg/dL Calcium 7.7 L (8.6-10.3) mg/dL Adrenal panel 03/26/17 Range/Units 05:10 Sodium 151 H (136-145) mEq/L Potassium 3.2 L (3.5-5.1) mEq/L Chloride 113 H (98-107) mEq/L Carbon Dioxide 29 (23-29) mEq/L BUN 33 H (8-23) mg/dL Creatinine 0.87 (0.60-1.20) mg/dL Glucose 125 H (70-105) mg/dL Calcium 7.7 L (8.6-10.3) mg/dL Consult Discharge Plan - Plan Referrals: Memo Cody MD [Primary Care Provider] -
--- NOTE | 2017-03-26 08:12 | Cardiology Consult Note ---
<Zita Dotsond - Last Filed: 03/26/17 14:04> Date of Encounter: 03/26/17 Time of Encounter: 10:11 Assessment and Plan (1) New onset atrial fibrillation Current Visit: Yes Status: Acute Patient was reported to be in atrial fibrillation. Electrocardiogram was obtained yesterday at 14:57 has evidence of P waves. This morning she was in sinus on telemetry. She is currently in normal sinus rhythm with a rate in the high 80s. Patient was given 0.25 mg of Digoxin twice yesterday via IV. The patient has also been receiving Lopressor 5 mg every 6 hours and 2.5 mg every 8 hours. Patient's arrhythmia is probably multifactorial as she has recently been diagnosed with pneumonitis secondary to aspiration of Gastrografin. Patient's oxygen saturation has been 92% on BiPAP. I have discussed the possibility of pulmonary embolus with the intensive care unit team and they believe that the hypoxia is related to pneumonitis and not Pulmonary Embolus. They are performing a CT scan without contrast of the chest today. Chads2 Score of 2- We will withhold anticoagulation at this time as patient is awaiting surgery. Discuss need for long-term anticoagulation after patient has surgery. Continue monitoring heart rate on telemetry Continue Lopressor 5mg every 6 hours and Lopressor 2.5mg every 8 hours as needed. Initial Troponin is .05 probably due to demand ischemia will trend troponin BNP 252, right sided pleural effusion on Chest CT, echo has been ordered. Awaiting results of Echocardiogram. (2) 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 Current Visit: Yes Status: Acute Being managed by the pocket secretary assembler and team in the intensive care unit. Discussion w patient/family: The assessment and plan as outlined above was discussed with the patient and/or family members who expressed understanding and agreement. All questions were answered. Thank you for involving us in the care of your patient. Please call with any questions. History of Present Illness Consult date: 03/26/17 Requesting physician: Adeline Bingham Consult reason: a-fib with RVR Chief complaint: SOB History of present illness: Ms. Leach is a 81 year old female who was admitted to the emergency department due to intractable nausea and vomiting associated with a large hiatal hernia. Patient recently ingested Gastrografin for a study and aspirated the contents. She is currently being managed for aspiration pneumonia and pneumonitis. Consulted because there was concern that patient was going into atrial fibrillation with rapid ventricular response. Patient currently states she does not have any chest pain, pressure, tightness, palpitations. She admits to shortness of breath. Denies any previous history of blood clots, swelling of the lower extremities, hemoptysis. The patient and her family report no known history of having an arrhythmia. Patient's family states that before the episodes of nausea vomiting, she was experiencing paresthesias in the upper and lower extremities that were similar to that when she had her initial episode of GBS. However, those episodes have since resolved. Past Med Surg Social Fam HX - Past Medical History Medical history: arthritis, coronary artery disease, GERD, hyperlipidemia, hypertension, myocardial infarction, thyroid disease, other (Iron def anemia) Psychiatric history: anxiety, depression - Past Surgical History Surgical History: DARLENE/BSO, other (Left ankle surgery) - Social History Smoking Status: Former smoker Alcohol use: none Drug use: none - Family History Father Living Status: Mother Living Status: Medications and Allergies Levothyroxine [Synthroid] 25 mcg PO DAILY 02/22/17 [History] Sertraline [Zoloft] 50 mg PO DAILY 02/22/17 [History] Lovastatin [Mevacor] 40 mg PO HS 03/24/17 [History] Ranitidine HCl [Zantac] 150 mg PO BID 03/24/17 [History] Ascorbic Acid/Vit B12/Zinc [Sm Zinc Plus Lozenge] 1 tab PO DAILY 03/25/17 [ History] Aspirin [Lo-Dose Aspirin EC] 81 mg PO DAILY 03/25/17 [History] Ferrous Sulfate [Iron] 81 mg PO DAILY 03/25/17 [History] Multivitamin [One Daily Multivitamin] 1 tab PO DAILY 03/25/17 [History] [place]-3 Fatty Acids [Fish Oil] 300 mg PO DAILY 03/25/17 [History] 3 Allergy/AdvReac Type Severity Reaction Status Date / Time rosuvastatin [From Crestor] Allergy Hives Verified 03/24/17 20:46 All Systems Review: A 10-system review of systems was performed and is negative for pertinent findings except as documented above in the HPI. Physical Examination Vital Signs, Last 4 Hours Temp Pulse Resp BP Pulse Ox 03/26/17 07:00 74 18 119/77 94 03/26/17 06:32 15 133/83 95 03/26/17 06:00 85 20 130/82 95 03/26/17 05:21 98.0 F 03/26/17 05:00 101 18 131/84 95 General: Conversant, No Apparent Distress HEENT: Atraumatic, Normocephaly Neck: No JVD Cardiac: Other (irregular rate) Results 03/26/17 05:10 03/26/17 05:10 Lab Results 03/25/17 03/25/17 03/25/17 08:38 13:51 20:20 WBC Hgb 12.6 13.4 11.6 D Hct 40.9 43.6 38.8 Plt Count Sodium Potassium Chloride Carbon Dioxide BUN Creatinine Glucose Calcium Magnesium 03/26/17 03/26/17 05:10 05:10 WBC 8.3 Hgb 10.5 L Hct 35.3 Plt Count 177 Sodium 151 H Potassium 3.2 L Chloride 113 H Carbon Dioxide 29 BUN 33 H Creatinine 0.87 Glucose 125 H Calcium 7.7 L Magnesium 1.9 - EKG Interpretation EKG results cardiology: sinus rhythm Consult Discharge Plan - Plan Referrals: Memo Cody MD [Primary Care Provider] - <Nicolasa Bernard - Last Filed: 03/26/17 20:37> Date of Encounter: 03/26/17 - Attending Attestation I examined this patient and my medical decision-making was reviewed with the Resident Physician. I agree with the documented findings, disposition and treatment plan. Ms. Leach presented to the emergency room with intractable nausea and vomiting of dark brown material. During a gastro-Gaffin study the patient aspirated. She is currently on BiPAP being managed for aspiration pneumonitis. She also presented with atrial fibrillation with RVR which appears to be a new diagnosis precipitated by her acute illness. Patient since has converted to normal sinus rhythm with heart rate in the 80s. She is receiving IV Lopressor since she is NPO. In regards to anticoagulation, her CHADSVASC score is 5 making her high risk for future CVA. Since surgery is potentially being considered, recommend holding off on starting anticoagulation. However, this should be considered prior to discharge. She may be a candidate for a NOAC - renal function is normal. Troponins are flat and adynamic representing demand ischemia and not ACS. An echo has been ordered. Assessment and Plan Discussion w patient/family: The assessment and plan as outlined above was discussed with the patient and/or family members who expressed understanding and agreement. All questions were answered. Thank you for involving us in the care of your patient. Please call with any questions. History of Present Illness History of present illness: Ms. Leach is a 81 year old female All Systems Review: A 10-system review of systems was performed and is negative for pertinent findings except as documented above in the HPI. Physical Examination Vital Signs, Last 4 Hours Pulse Resp BP Pulse Ox 03/26/17 19:47 16 156/78 93 03/26/17 19:25 93 18 156/78 93 03/26/17 18:00 84 20 152/69 95 03/26/17 17:10 17 143/93 94 03/26/17 17:00 98 14 153/76 94 Results 03/26/17 05:10 03/26/17 05:10 Lab Results 03/25/17 03/26/17 03/26/17 20:20 05:10 05:10 WBC 8.3 Hgb 11.6 D 10.5 L Hct 38.8 35.3 Plt Count 177 Sodium 151 H Potassium 3.2 L Chloride 113 H Carbon Dioxide 29 BUN 33 H Creatinine 0.87 Glucose 125 H Calcium 7.7 L Magnesium 1.9 Troponin I B-Natriuretic Peptide TSH 03/26/17 03/26/17 03/26/17 10:56 10:56 10:56 WBC Hgb Hct Plt Count Sodium Potassium Chloride Carbon Dioxide BUN Creatinine Glucose Calcium Magnesium Troponin I 0.05 H* B-Natriuretic Peptide 252 H TSH 0.514 03/26/17 15:03 WBC Hgb Hct Plt Count Sodium Potassium Chloride Carbon Dioxide BUN Creatinine Glucose Calcium Magnesium Troponin I 0.07 H* B-Natriuretic Peptide TSH
[2017-03-26] MEDS: methylPREDNISolone 125 MG/2 ML VIAL IVP SCH ×2 (08:37→16:14)
[2017-03-26] MEDS ORDERED: D10% in Water 500 ML IVC PRN (11:28)
[2017-03-26] MEDS ORDERED: D5% in Water 1,000 ML IVC PRN ×2 (11:44→15:56)
[2017-03-26] MEDS ORDERED: *HR* Dextrose 50 % in Water (Syg) 50 ML SYRINGE IVP PRN ×2 (11:44→15:56)
[2017-03-26] MEDS ORDERED: Dextrose Gel 15 GM/37.5 ML TUBE PO PRN ×4 (11:44→15:56)
[2017-03-26] MEDS: Budesonide/Formoterol 160/4.5 MDI IH SCH ×2 (11:50→19:46)
[2017-03-26] MEDS: Ipratropium/Albuterol Neb 3 ML IH SCH ×3 (11:51→19:46)
[2017-03-26] MEDS ORDERED: Insulin LISPRO 300 UNITS/3 ML VIAL SQ SCH (16:30)
[2017-03-26] MEDS: Insulin LISPRO 300 UNITS/3 ML VIAL SQ SCH ×2 (16:36→21:26)
[2017-03-26] MEDS ORDERED: Clinimix E 5%-15% SOLUTION 2,000 ML with MVI, adult with vitamin K 10 ML IVC SCH (17:00)
[2017-03-26] MEDS: Pantoprazole 40 MG VIAL IVP SCH (17:55)
[2017-03-27] MEDS: Ipratropium/Albuterol Neb 3 ML IH SCH ×6 (00:04→20:06)
[2017-03-27] MEDS: Insulin LISPRO 300 UNITS/3 ML VIAL SQ SCH ×6 (00:10→20:22)
[2017-03-27] MEDS: *HR* Metoprolol 5 MG/5 ML VIAL IVP SCH ×5 (00:23→23:46)
[2017-03-27] MEDS: methylPREDNISolone 125 MG/2 ML VIAL IVP SCH ×4 (00:23→23:46)
[2017-03-27] MEDS: Piperacillin/Tazobactam 3.375 GM/200 ML BAG IVPB SCH ×3 (00:23→16:16)
[2017-03-27 04:45] LABS: VBG Ionized Calcium 1.23 mmol/L (1.15-1.35); VBG PH 7.35 pH Units (7.32-7.42)
[2017-03-27 05:07] LABS: BUN/Creatinine Ratio 56 (6-26); Blood Urea Nitrogen 47 mg/dL (8-23); Calcium 8.7 mg/dL (8.6-10.3); Carbon Dioxide 28 mEq/L (23-29); Chloride 116 mEq/L (98-107); Glucose 201 mg/dL (70-105); Magnesium 2.2 mg/dL (1.6-2.6); Osmolality,Calculated 324 (280-300); Phosphorous 1.6 mg/dL (2.7-4.5); Potassium 3.9 mEq/L (3.5-5.1); Sodium 148 mEq/L (136-145); Triglycerides 79 mg/dL (< 150); eGFR For African Americans > 60 (> 60); eGFR For Non-African Americans > 60 (> 60)
[2017-03-27] MEDS: Pantoprazole 40 MG VIAL IVP SCH ×2 (05:39→18:26)
[2017-03-27] MEDS: Budesonide/Formoterol 160/4.5 MDI IH SCH ×2 (07:29→20:06)
--- NOTE | 2017-03-27 09:12 | General Surgery Progress Note ---
Date of Encounter: 03/27/17 Time of Encounter: 09:10 - Assessment and Plan (1) Aspiration into respiratory tract Current Visit: Yes Status: Acute Noted improvement overnight while on Bipap. On facemask at this time. Sats 92- 94%. Continue per critical care. Qualifiers: Encounter type: subsequent encounter Qualified Code(s): T17.908D - Unspecified foreign body in respiratory tract, part unspecified causing other injury, subsequent encounter (2) Hiatal hernia Current Visit: Yes Status: Acute NGT in place. Continue with LIWS. Plan still for hiatal hernia repair on by Dr. Castillo. Subjective Patient reports: other (Noted improvement in respiratory status. NGT in place. No nausea. No abdominal pain symptoms.) Objective Vital Signs - Last 8 Hours Temp Pulse Resp BP Pulse Ox 03/27/17 09:00 103 22 148/65 92 03/27/17 08:35 97.3 F L 03/27/17 08:00 96 18 181/90 96 03/27/17 07:29 16 181/90 96 03/27/17 07:00 77 18 159/73 97 03/27/17 06:00 75 17 152/75 95 03/27/17 05:00 86 23 140/72 94 03/27/17 04:18 18 158/77 96 03/27/17 04:05 85 03/27/17 04:00 87 21 158/77 96 03/27/17 03:15 96.8 F L 03/27/17 03:00 86 18 154/76 97 03/27/17 02:00 85 18 157/73 97 Intake and Output 03/26/17 03/27/17 03/27/17 23:59 07:59 15:59 Intake Total 200 / 200 200 / 200 Output Total 600 / 600 400 / 400 300 / 300 Balance -400 / -400 -200 / -200 -300 / -300 Intake: IV Fluids 200 / 200 200 / 200 Zosyn Premix 3.375 GM/200 ML 3. 200 / 200 200 / 200 375 gm In 200 ml @ 50 mls/hr IVPB Q8H [facility] Rx#:[id number] Oral 0 / 0 0 / 0 Tube Feeding 0 / 0 0 / 0 Free Water 0 / 0 0 / 0 Output: Urine 200 / 200 Catheter 200 / 200 350 / 350 300 / 300 Gastric Drainage 200 / 200 50 / 50 Other: # Bowel Movements 0 Weight 70.3 kg 70.3 kg Blood Glucose* 207 177 174 Patient Weight 03/27/17 23:59 Weight 70.3 kg - General physical appearance no distress - Cardiovascular Cardiovascular exam: Present: RRR, no murmurs/rubs/gallops - Abdomen Abdomen: Present: bowel sounds present, soft, non tender - Labs 03/26/17 05:10 03/28/17 04:02 Diabetes panel 03/27/17 Range/Units 04:27 Sodium 148 H (136-145) mEq/L Potassium 3.9 (3.5-5.1) mEq/L Chloride 116 H (98-107) mEq/L Carbon Dioxide 28 (23-29) mEq/L BUN 47 H (8-23) mg/dL Creatinine 0.84 (0.60-1.20) mg/dL Glucose 201 H (70-105) mg/dL Calcium 8.7 (8.6-10.3) mg/dL Triglycerides 79 (< 150) mg/dL Thyroid panel 03/26/17 Range/Units 10:56 TSH 0.514 (0.340-5.600) mcIU/mL Calcium panel 03/27/17 Range/Units 04:27 Calcium 8.7 (8.6-10.3) mg/dL Phosphorus 1.6 L (2.7-4.5) mg/dL Pituitary panel 03/26/17 03/27/17 Range/Units 10:56 04:27 Sodium 148 H (136-145) mEq/L Potassium 3.9 (3.5-5.1) mEq/L Chloride 116 H (98-107) mEq/L Carbon Dioxide 28 (23-29) mEq/L BUN 47 H (8-23) mg/dL Creatinine 0.84 (0.60-1.20) mg/dL Glucose 201 H (70-105) mg/dL Calcium 8.7 (8.6-10.3) mg/dL TSH 0.514 (0.340-5.600) mcIU/mL Adrenal panel 03/27/17 Range/Units 04:27 Sodium 148 H (136-145) mEq/L Potassium 3.9 (3.5-5.1) mEq/L Chloride 116 H (98-107) mEq/L Carbon Dioxide 28 (23-29) mEq/L BUN 47 H (8-23) mg/dL Creatinine 0.84 (0.60-1.20) mg/dL Glucose 201 H (70-105) mg/dL Calcium 8.7 (8.6-10.3) mg/dL Consult Discharge Plan - Plan Referrals: Memo Cody MD [Primary Care Provider] -
--- NOTE | 2017-03-27 09:43 | Electrocardiograph Report ---
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
--- NOTE | 2017-03-27 09:45 | Electrocardiograph Report ---
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
--- NOTE | 2017-03-27 10:10 | Pulmonology Progress Note ---
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 GI was consulted; endoscopy was planned. -Patient aspirated all of her Gastrograffin and could not complete the upper GI study. -Subsequent CXR demonstrates opacities consistent with aspiration. -Currently on oxygen via mask. CT demonstrated a followin. Multifocal airspace consolidation in the left lung has the appearance of pneumonia 2. Small right larger than left pleural effusions with compressive atelectasis 3. Large hiatal hernia. Gastric tube is in the mid thoracic esophagus Plan: -NPO -Zosyn for anaerobic coverage -Solu-Medrol 6 mg every 8 hours -Duonbes q4 with symbicort (2) New onset atrial fibrillation Current Visit: Yes Status: Acute Patient developed new onset atrial fibrillation. -Developed A. fib RVR with rate into the 120s. -Cardiology was notified. -Lopressor 5 mg once was given, followed by 5 mg IV every 6 hours. -We will hold off on anticoagulation at the present time due to possible surgery. -Echocardiogram results are currently pending. (3) UTI (urinary tract infection) Current Visit: Yes Status: Acute Currently on Zosyn. Qualifiers: Qualified Code(s): N39.0 - Urinary tract infection, site not specified; R31.9 - Hematuria, unspecified; R31.9 - Hematuria, unspecified (4) Hiatal hernia Current Visit: Yes Status: Acute Patient's hiatal hernia will be managed per surgery team. 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 -Possible repair on Wednesday. (5) DVT prophylaxis Current Visit: Yes Status: Acute Heparin 5000 subcutaneous every 12. Subjective Principal diagnosis: aspiration Interval history: Patient seen and examined at bedside this morning. Currently on oxygen mask. Patient is asleep; does not appear to be in any respiratory distress at the present time. Per nutrition, patient has low phosphorus; phosphorus electrolyte protocol ordered. Objective PUL Vital signs: Last Vital Signs Temp 97.3 F L 03/27/17 08:35 Pulse 112 03/27/17 10:00 Resp 18 03/27/17 10:00 BP 155/77 03/27/17 10:00 Pulse Ox 94 03/27/17 10:00 General appearance: no acute distress, asleep ENT: oropharynx moist Auscultation: right: rales, rhonchi, bilateral: diminished breath sounds Cardiovascular: other (Patient is tachycardic) Results - Laboratory Findings CBC and BMP: 03/26/17 05:10 03/27/17 04:27 PT/INR, D-dimer PT 11.5 Seconds (9.4-12.1) 03/25/17 04:21 Abnormal lab findings: Abnormal lab results RBC 3.80 M/mcL (3.82-4.97) L 03/26/17 05:10 Hgb 10.5 g/dL (11.5-15.4) L 03/26/17 05:10 MCH 27.6 pg (28.0-33.3) L 03/26/17 05:10 MCHC 29.7 g/dL (31.6-35.5) L 03/26/17 05:10 RDW 16.4 % (11.5-14.5) H 03/26/17 05:10 APTT 24.4 Seconds (26.0-36.0) L 03/25/17 04:21 Sodium 148 mEq/L (136-145) H 03/27/17 04:27 Chloride 116 mEq/L (98-107) H 03/27/17 04:27 BUN 47 mg/dL (8-23) H 03/27/17 04:27 BUN/Creatinine Ratio 56 (6-26) H 03/27/17 04:27 Glucose 201 mg/dL (70-105) H 03/27/17 04:27 POC Glucose 174 (58-89) H 03/27/17 08:07 Calculated Osmolality 324 (280-300) H 03/27/17 04:27 Phosphorus 1.6 mg/dL (2.7-4.5) L 03/27/17 04:27 Troponin I 0.06 ng/mL (< 0.04) H* 03/27/17 04:27 B-Natriuretic Peptide 252 pg/mL (Less than 100) H 03/26/17 10:56 Prealbumin 12.4 mg/dL (17.0-34.0) L 03/27/17 04:27 - Clinical Findings Intake & Output: Intake & Output 03/26/17 03/27/17 03/27/17 23:59 07:59 15:59 Intake Total 200 / 200 200 / 200 Output Total 600 / 600 400 / 400 300 / 300 Balance -400 / -400 -200 / -200 -300 / -300 Weight 70.3 kg 70.3 kg Consult Discharge Plan - Plan Referrals: Memo Cody MD [Primary Care Provider] - <Piotr Francois - Last Filed: 03/27/17 10:23> Date of Encounter: 03/27/17 Objective PUL Vital signs: Last Vital Signs Temp 97.3 F L 03/27/17 08:35 Pulse 112 03/27/17 10:00 Resp 18 03/27/17 10:00 BP 155/77 03/27/17 10:00 Pulse Ox 94 03/27/17 10:00 Results - Laboratory Findings CBC and BMP: 03/26/17 05:10 03/27/17 04:27 PT/INR, D-dimer PT 11.5 Seconds (9.4-12.1) 03/25/17 04:21 Abnormal lab findings: Abnormal lab results RBC 3.80 M/mcL (3.82-4.97) L 03/26/17 05:10 Hgb 10.5 g/dL (11.5-15.4) L 03/26/17 05:10 MCH 27.6 pg (28.0-33.3) L 03/26/17 05:10 MCHC 29.7 g/dL (31.6-35.5) L 03/26/17 05:10 RDW 16.4 % (11.5-14.5) H 03/26/17 05:10 APTT 24.4 Seconds (26.0-36.0) L 03/25/17 04:21 Sodium 148 mEq/L (136-145) H 03/27/17 04:27 Chloride 116 mEq/L (98-107) H 03/27/17 04:27 BUN 47 mg/dL (8-23) H 03/27/17 04:27 BUN/Creatinine Ratio 56 (6-26) H 03/27/17 04:27 Glucose 201 mg/dL (70-105) H 03/27/17 04:27 POC Glucose 174 (58-89) H 03/27/17 08:07 Calculated Osmolality 324 (280-300) H 03/27/17 04:27 Phosphorus 1.6 mg/dL (2.7-4.5) L 03/27/17 04:27 Troponin I 0.06 ng/mL (< 0.04) H* 03/27/17 04:27 B-Natriuretic Peptide 252 pg/mL (Less than 100) H 03/26/17 10:56 Prealbumin 12.4 mg/dL (17.0-34.0) L 03/27/17 04:27 - Clinical Findings Intake & Output: Intake & Output 03/26/17 03/27/17 03/27/17 23:59 07:59 15:59 Intake Total 200 / 200 200 / 200 Output Total 600 / 600 400 / 400 300 / 300 Balance -400 / -400 -200 / -200 -300 / -300 Weight 70.3 kg 70.3 kg - Attending Attestation I examined this patient and my medical decision-making was reviewed with the Resident Physician. I agree with the documented findings, disposition and treatment plan as described except to the extent set forth below. Patient seen and examined. Labs, radiology, chart personally reviewed. 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 Patient is tolerating noninvasive ventilation and will try to take her off and check how she does otherwise continue to keep SPO2 around 90% Cardiovascular: stable GI: Nutrition per dietary and GI prophylaxis per routine. Patient is on TPN and surgery follow-up. Heme: DVT prophylaxis per routine ID: Continue antibiotics and plan to de-escalation Renal; urine out put and renal funtion reviewed Endorcine: blood glucose is monitored Lines: all lines checked and no evidence of infections Skin: skin care to prevent pressure ulcers per nursing routine care
--- NOTE | 2017-03-27 10:24 | Electrocardiograph Report ---
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
[2017-03-27] MEDS: 0.9 % Sodium Chloride 1,000 ML IVC SCH ×3 (10:29→23:46)
[2017-03-27] MEDS ORDERED: Potassium Chloride 40 MEQ/200 ML BAG IVPB PRN (11:24)
[2017-03-27] MEDS: Potassium Phosphate 44 MEQ in 0.9 % Sodium Chloride 250 ML IVPB PRN (13:05)
--- NOTE | 2017-03-27 13:31 | Cardiology Progress Note ---
Date of Encounter: 03/27/17 Time of Encounter: 10:30 Assessment and Plan (1) Abnormal heart rhythm Current Visit: Yes Status: Acute Patient presented to the ER with intractable vomiting and aspirated during a gastro-gaffin study. At the time of our initial evaluation 03/26/2017, we were reportedly told she was in AFIB RVR by the Hospitalist team when she came in. However, after detailed review of all ECGs - AFIB is not demonstrated. She did have sinus with frequent PACs vs atrial tachycardia on ECGs. If atrial fibrillation was seen by a medical provider, it has not been captured. She certainly is at risk for the development of atrial fibrillation. However, in light of this information, full anticoagulation does not appear to be indicated. When safe from a surgical standpoint, would recommend low dose aspirin. Echo demonstrated normal LV and RV function. Qualifiers: Arrhythmia type: paroxysmal tachycardia, unspecified Qualified Code(s): I47.9 - Paroxysmal tachycardia, unspecified; I47 - Paroxysmal tachycardia Discussion w patient/family: The assessment and plan as outlined above was discussed with the patient and/or family members who expressed understanding and agreement. All questions were answered. Thank you for involving us in the care of your patient. Please call with any questions. Subjective Principal diagnosis: aspiration Interval history: Patient more alert this morning - no respiratory distress. and granddaughter at bedside. She denies new complaints today. Objective Vital Signs, Last 4 Hours Pulse Resp BP Pulse Ox 03/27/17 13:00 103 18 156/78 94 03/27/17 12:00 112 18 171/89 96 03/27/17 11:00 124 22 159/74 94 03/27/17 10:00 112 18 155/77 94 General: Conversant, No Apparent Distress HEENT: Atraumatic Neck: No JVD Cardiac: Other (tachycardic, no murmur) Lungs: Other (diminished breath sounds) Neuro: Alert and responsive, No focal deficits noted Abdomen: Soft, Other (decreased bowel sounds) Extremities: Other (bilateral hands appear edematous, no significant LE edema) Results 03/26/17 05:10 03/27/17 04:27 Lab Results 03/26/17 03/27/17 03/27/17 15:03 04:27 04:27 Sodium 148 H Potassium 3.9 Chloride 116 H Carbon Dioxide 28 BUN 47 H Creatinine 0.84 Glucose 201 H Calcium 8.7 Magnesium 2.2 Troponin I 0.07 H* 0.06 H* - Imaging and Cardiology Echo: image reviewed - EKG Interpretation EKG results cardiology: other (24h telemetry reviewed demonstrating NSR with average HR 96 bpm) Consult Discharge Plan - Plan Referrals: Memo Cody MD [Primary Care Provider] -
[2017-03-27] MEDS: Saliva Stimulant 100ml BOTTLE PO PRN ×2 (14:34→18:32)
[2017-03-27] MEDS ORDERED: Clinimix E 5%-15% SOLUTION 2,000 ML with MVI, adult with vitamin K 10 ML IVC SCH (17:00)
[2017-03-28] MEDS: Insulin LISPRO 300 UNITS/3 ML VIAL SQ SCH ×7 (00:06→23:14)
[2017-03-28] MEDS: Ipratropium/Albuterol Neb 3 ML IH SCH ×7 (00:09→23:56)
[2017-03-28] MEDS: Piperacillin/Tazobactam 3.375 GM/200 ML BAG IVPB SCH ×4 (00:18→23:14)
[2017-03-28] MEDS: *HR* Morphine 2 MG/ML SYRINGE IVP PRN (03:57)
[2017-03-28 04:24] LABS: VBG HCO3 28 mEq/L (21-27); VBG PCO2 46 mmHg (41-51); VBG PH 7.39 pH Units (7.32-7.42); VBG PO2 119 mmHg (25-50)
[2017-03-28 04:34] LABS: VBG Ionized Calcium 1.21 mmol/L (1.15-1.35); VBG PH 7.44 pH Units (7.32-7.42)
[2017-03-28] MEDS: Pantoprazole 40 MG VIAL IVP SCH ×2 (04:36→18:50)
[2017-03-28] MEDS: *HR* Metoprolol 5 MG/5 ML VIAL IVP SCH ×4 (04:36→23:14)
[2017-03-28 04:40] LABS: BUN/Creatinine Ratio 52 (6-26); Blood Urea Nitrogen 39 mg/dL (8-23); Calcium 8.8 mg/dL (8.6-10.3); Carbon Dioxide 28 mEq/L (23-29); Chloride 117 mEq/L (98-107); Glucose 225 mg/dL (70-105); Magnesium 2.1 mg/dL (1.6-2.6); Osmolality,Calculated 334 (280-300); Phosphorous 2.3 mg/dL (2.7-4.5); Potassium 3.5 mEq/L (3.5-5.1); Sodium 154 mEq/L (136-145); eGFR For African Americans > 60 (> 60); eGFR For Non-African Americans > 60 (> 60)
[2017-03-28] MEDS: Potassium Phosphate 44 MEQ in 0.9 % Sodium Chloride 250 ML IVPB PRN ×2 (05:12→21:07)
[2017-03-28] MEDS: 0.9 % Sodium Chloride 1,000 ML IVC SCH (05:40)
[2017-03-28] MEDS: Budesonide/Formoterol 160/4.5 MDI IH SCH ×2 (07:35→20:01)
--- NOTE | 2017-03-28 08:26 | General Surgery Progress Note ---
Date of Encounter: 03/28/17 Time of Encounter: 08:24 - Assessment and Plan (1) Aspiration into respiratory tract Current Visit: Yes Status: Acute Patient currently on NC O2. No respiratory difficulty. Qualifiers: Encounter type: subsequent encounter Qualified Code(s): T17.908D - Unspecified foreign body in respiratory tract, part unspecified causing other injury, subsequent encounter (2) Hiatal hernia Current Visit: Yes Status: Acute NGT in place. Patient's case has been added-on for tomorrow for Dr. Castillo. Subjective Patient reports: no new complaints (Patient denies any pain symptoms. Breathing easier. No nausea or vomiting.) Objective Vital Signs - Last 8 Hours Temp Pulse Resp BP Pulse Ox 03/28/17 07:00 96 21 179/76 92 03/28/17 06:00 105 20 201/94 92 03/28/17 05:11 98.9 F 03/28/17 04:23 20 96 03/28/17 04:00 93 26 183/89 97 03/28/17 03:55 93 03/28/17 03:00 93 22 167/88 97 03/28/17 02:00 93 16 179/79 94 03/28/17 01:00 99 18 184/79 94 Intake and Output 03/27/17 03/28/17 03/28/17 23:59 07:59 15:59 Intake Total 2540 / 2540 450 / 450 Output Total 650 / 650 1725 / 1725 Balance 1890 / 1890 -1275 / -1275 Intake: IV Fluids 2540 / 2540 450 / 450 0.9 % Sodium Chloride 1,000 ML 1000 / 1000 @ 100 mls/hr IVC .Q10H TANYA Rx#: [id number] Clinimix E 5%-15% SOLUTION 2, 1080 / 1080 000 ML @ 45 mls/hr IVC .Q24H TANYA with M.v.i. Adult 10 ml Rx# :[id number] Intralipid 20% 250 ML @ 21 mls/ 250 / 250 hr IVPB DAILY@1700 TANYA Rx#: [id number] Zosyn Premix 3.375 GM/200 ML 3. 200 / 200 200 / 200 375 gm In 200 ml @ 50 mls/hr IVPB Q8H TANYA Rx#:[id number] Potassium Phosphate 44 MEQ In 0 260 / 260 .9 % Sodium Chloride 250 ML @ 40 mls/hr IVPB Q10H PRN Rx#: [id number] Oral 0 / 0 Tube Feeding 0 / 0 Free Water 0 / 0 Output: Catheter 650 / 650 1650 / 1650 Gastric Drainage 0 / 0 75 / 75 Other: Weight 72 kg Blood Glucose* 173 210 Patient Weight 03/28/17 23:59 Weight 72 kg - General physical appearance well nourished, no distress - Respiratory normal expansion - Abdomen Abdomen: Present: soft - Labs 03/26/17 05:10 03/28/17 04:02 Diabetes panel 03/28/17 Range/Units 04:02 Sodium 154 H (136-145) mEq/L Potassium 3.5 (3.5-5.1) mEq/L Chloride 117 H (98-107) mEq/L Carbon Dioxide 28 (23-29) mEq/L BUN 39 H (8-23) mg/dL Creatinine 0.75 (0.60-1.20) mg/dL Glucose 225 H (70-105) mg/dL Calcium 8.8 (8.6-10.3) mg/dL Calcium panel 03/28/17 Range/Units 04:02 Calcium 8.8 (8.6-10.3) mg/dL Phosphorus 2.3 L (2.7-4.5) mg/dL Pituitary panel 03/28/17 Range/Units 04:02 Sodium 154 H (136-145) mEq/L Potassium 3.5 (3.5-5.1) mEq/L Chloride 117 H (98-107) mEq/L Carbon Dioxide 28 (23-29) mEq/L BUN 39 H (8-23) mg/dL Creatinine 0.75 (0.60-1.20) mg/dL Glucose 225 H (70-105) mg/dL Calcium 8.8 (8.6-10.3) mg/dL Adrenal panel 03/28/17 Range/Units 04:02 Sodium 154 H (136-145) mEq/L Potassium 3.5 (3.5-5.1) mEq/L Chloride 117 H (98-107) mEq/L Carbon Dioxide 28 (23-29) mEq/L BUN 39 H (8-23) mg/dL Creatinine 0.75 (0.60-1.20) mg/dL Glucose 225 H (70-105) mg/dL Calcium 8.8 (8.6-10.3) mg/dL Consult Discharge Plan - Plan Referrals: Memo Cody MD [Primary Care Provider] -
[2017-03-28] MEDS ORDERED: *HR* Labetalol 20 MG/4 ML SYRINGE IVP ONE (08:44)
--- NOTE | 2017-03-28 08:51 | Pulmonology Progress Note ---
<Sujit Root - Last Filed: 03/28/17 09:14> Date of Encounter: 03/28/17 Time of Encounter: 08:30 Assessment and Plan (1) 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 Current Visit: Yes Status: Acute Initially presented to the hospital with intractable dark vomiting. GI was consulted; endoscopy was planned. -Patient aspirated all of her Gastrograffin and could not complete the upper GI study. -Subsequent CXR demonstrates opacities consistent with aspiration. -Currently on oxygen via mask. CT demonstrated a followin. Multifocal airspace consolidation in the left lung has the appearance of pneumonia 2. Small right larger than left pleural effusions with compressive atelectasis 3. Large hiatal hernia. Gastric tube is in the mid thoracic esophagus Plan: -NPO -Zosyn for anaerobic coverage -Solu-Medrol 6 mg every 8 hours -Duonbes q4 with symbicort Surgery currently on board; scheduled for tomorrow. (2) Tachycardia Current Visit: Yes Status: Acute Patient initially believed to have developed new onset atrial fibrillation. -Developed A. fib RVR with rate into the 120s. -Upon review of EKG, patient's rapid HR was likely 2/2 atrial tachycardia. -Per cardiology, initiate low dose ASA when safe from a surgical perspective. (3) UTI (urinary tract infection) Current Visit: Yes Status: Acute Currently on Zosyn. Qualifiers: Qualified Code(s): N39.0 - Urinary tract infection, site not specified; R31.9 - Hematuria, unspecified; R31.9 - Hematuria, unspecified (4) Hiatal hernia Current Visit: Yes Status: Acute Patient's hiatal hernia will be managed per surgery team. 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 -Sugery currently on board. (5) DVT prophylaxis Current Visit: Yes Status: Acute Heparin 5000 subcutaneous every 12. (6) Hypertension Current Visit: Yes Status: Acute Elevated BP this morning at 179/76. -Labetalol 10 mg IV ONCE was given this morning. Qualifiers: Qualified Code(s): I10 - Essential (primary) hypertension Subjective Principal diagnosis: aspiration Interval history: Patient seen and examined at bedside this morning. Currently has NG tube placed. Denies any respiratory distress at this time. Objective PUL Vital signs: Last Vital Signs Temp 98.9 F 03/28/17 05:11 Pulse 96 03/28/17 07:00 Resp 21 03/28/17 07:00 BP 179/76 03/28/17 07:00 Pulse Ox 92 03/28/17 07:00 General appearance: no acute distress Eyes: nonicteric ENT: oropharynx moist Auscultation: bilateral: diminished breath sounds Cardiovascular: other (tachycardia) Musculoskeletal: no deformities Results - Laboratory Findings CBC and BMP: 03/26/17 05:10 03/28/17 04:02 PT/INR, D-dimer PT 11.5 Seconds (9.4-12.1) 03/25/17 04:21 Abnormal lab findings: Abnormal lab results RBC 3.80 M/mcL (3.82-4.97) L 03/26/17 05:10 Hgb 10.5 g/dL (11.5-15.4) L 03/26/17 05:10 MCH 27.6 pg (28.0-33.3) L 03/26/17 05:10 MCHC 29.7 g/dL (31.6-35.5) L 03/26/17 05:10 RDW 16.4 % (11.5-14.5) H 03/26/17 05:10 APTT 24.4 Seconds (26.0-36.0) L 03/25/17 04:21 VBG pH 7.44 pH Units (7.32-7.42) H 03/28/17 04:28 VBG pO2 119 mmHg (25-50) H 03/28/17 04:19 VBG HCO3 28 mEq/L (21-27) H 03/28/17 04:19 Sodium 154 mEq/L (136-145) H 03/28/17 04:02 Chloride 117 mEq/L (98-107) H 03/28/17 04:02 BUN 39 mg/dL (8-23) H 03/28/17 04:02 BUN/Creatinine Ratio 52 (6-26) H 03/28/17 04:02 Glucose 225 mg/dL (70-105) H 03/28/17 04:02 POC Glucose 150 (58-89) H 03/28/17 07:41 Calculated Osmolality 334 (280-300) H 03/28/17 04:02 Phosphorus 2.3 mg/dL (2.7-4.5) L 03/28/17 04:02 Troponin I 0.10 ng/mL (< 0.04) H* 03/28/17 04:02 B-Natriuretic Peptide 252 pg/mL (Less than 100) H 03/26/17 10:56 Prealbumin 12.4 mg/dL (17.0-34.0) L 03/27/17 04:27 - Clinical Findings Intake & Output: Intake & Output 03/27/17 03/28/17 03/28/17 23:59 07:59 15:59 Intake Total 2540 / 2540 450 / 450 Output Total 650 / 650 1725 / 1725 Balance 1890 / 1890 -1275 / -1275 Weight 72 kg Consult Discharge Plan - Plan Referrals: Memo Cody MD [Primary Care Provider] - <Piotr Francois - Last Filed: 03/28/17 10:12> Date of Encounter: 03/28/17 Objective PUL Vital signs: Last Vital Signs Temp 98.9 F 03/28/17 05:11 Pulse 108 03/28/17 09:00 Resp 18 03/28/17 09:00 BP 189/85 03/28/17 09:00 Pulse Ox 90 03/28/17 09:00 Results - Laboratory Findings CBC and BMP: 03/26/17 05:10 03/28/17 04:02 PT/INR, D-dimer PT 11.5 Seconds (9.4-12.1) 03/25/17 04:21 Abnormal lab findings: Abnormal lab results RBC 3.80 M/mcL (3.82-4.97) L 03/26/17 05:10 Hgb 10.5 g/dL (11.5-15.4) L 03/26/17 05:10 MCH 27.6 pg (28.0-33.3) L 03/26/17 05:10 MCHC 29.7 g/dL (31.6-35.5) L 03/26/17 05:10 RDW 16.4 % (11.5-14.5) H 03/26/17 05:10 APTT 24.4 Seconds (26.0-36.0) L 03/25/17 04:21 VBG pH 7.44 pH Units (7.32-7.42) H 03/28/17 04:28 VBG pO2 119 mmHg (25-50) H 03/28/17 04:19 VBG HCO3 28 mEq/L (21-27) H 03/28/17 04:19 Sodium 154 mEq/L (136-145) H 03/28/17 04:02 Chloride 117 mEq/L (98-107) H 03/28/17 04:02 BUN 39 mg/dL (8-23) H 03/28/17 04:02 BUN/Creatinine Ratio 52 (6-26) H 03/28/17 04:02 Glucose 225 mg/dL (70-105) H 03/28/17 04:02 POC Glucose 150 (58-89) H 03/28/17 07:41 Calculated Osmolality 334 (280-300) H 03/28/17 04:02 Phosphorus 2.3 mg/dL (2.7-4.5) L 03/28/17 04:02 Troponin I 0.10 ng/mL (< 0.04) H* 03/28/17 04:02 B-Natriuretic Peptide 252 pg/mL (Less than 100) H 03/26/17 10:56 Prealbumin 12.4 mg/dL (17.0-34.0) L 03/27/17 04:27 - Clinical Findings Intake & Output: Intake & Output 03/27/17 03/28/17 03/28/17 23:59 07:59 15:59 Intake Total 2540 / 2540 450 / 450 Output Total 650 / 650 1725 / 1725 Balance 1890 / 1890 -1275 / -1275 Weight 72 kg - Attending Attestation I examined this patient and my medical decision-making was reviewed with the Resident Physician. I agree with the documented findings, disposition and treatment plan as described except to the extent set forth below. Patient seen and examined. Labs, radiology, chart personally reviewed. Agree with resident's history and physical, assessment, plan with following comments: SURVEY CHIEF: Patient follows commands, Pulmonary: Acceptable oxygenation and ventilation. Noninvasive ventilation as needed. Cardiovascular: stable and continue current treatment GI: Nutrition per dietary and GI prophylaxis per routine. Surgeon is planning for surgery tomorrow Heme: DVT prophylaxis per routine ID: Continue antibiotics and plan to de-escalation Renal; urine out put and renal funtion reviewed Endorcine: blood glucose is monitored Lines: all lines checked and no evidence of infections Skin: skin care to prevent pressure ulcers per nursing routine care Keep monitoring in ICU.
[2017-03-28] MEDS: methylPREDNISolone 125 MG/2 ML VIAL IVP SCH ×3 (08:52→23:14)
[2017-03-28] MEDS: Saliva Stimulant 100ml BOTTLE PO PRN ×2 (08:52→11:44)
[2017-03-28] MEDS ORDERED: D5% in 0.45% NACL 1,000 ML IVC SCH (10:45)
[2017-03-28] MEDS: D5% in Water 1,000 ML IVC SCH (15:34)
[2017-03-28] MEDS ORDERED: Clinimix E 5%-15% SOLUTION 2,000 ML with MVI, adult with vitamin K 10 ML IVC SCH (17:00)
[2017-03-28 18:29] LABS: Basophils % 0.1 %; Hemoglobin 10.8 g/dL (11.5-15.4); Lymphocytes # 0.6 K/mcL (0.6-4.6); Lymphocytes % 7.3 %; Mean Corpuscular Hemoglobin 27.6 pg (28.0-33.3); Mean Corpuscular Volume 92.1 fL (83.0-100.0); Mean Platelet Volume 10.3 fL (9.4-12.4); Monocytes # 0.5 K/mcL (0.0-1.3); Monocytes % 5.9 %; Neutrophils # 7.6 K/mcL (1.6-8.9); Nucleated Red Blood Cells 0.2 /100 WBC (0); Platelet Count 192 K/mcL (140-400); Red Blood Count 3.91 M/mcL (3.82-4.97); Red Cell Distribution Width 16.6 % (11.5-14.5); Segmented Neutrophils % 85.7 %
[2017-03-28 18:42] LABS: BUN/Creatinine Ratio 49 (6-26); Blood Urea Nitrogen 36 mg/dL (8-23); Calcium 8.7 mg/dL (8.6-10.3); Carbon Dioxide 28 mEq/L (23-29); Chloride 115 mEq/L (98-107); Glucose 243 mg/dL (70-105); Osmolality,Calculated 326 (280-300); Phosphorous 2.2 mg/dL (2.7-4.5); Potassium 3.2 mEq/L (3.5-5.1); Sodium 150 mEq/L (136-145); eGFR For African Americans > 60 (> 60); eGFR For Non-African Americans > 60 (> 60)
[2017-03-29] MEDS: *HR* Morphine 2 MG/ML SYRINGE IVP PRN ×2 (00:52→20:29)
[2017-03-29] MEDS: D5% in Water 1,000 ML IVC SCH ×2 (03:35→13:00)
[2017-03-29] MEDS: Ipratropium/Albuterol Neb 3 ML IH SCH ×5 (04:05→20:04)
[2017-03-29 04:09] LABS: Basophils % 0.2 %; Hematocrit 36.1 % (35.3-44.9); Hemoglobin 10.7 g/dL (11.5-15.4); Immature Granulocytes % 1.4 % (0-4); Lymphocytes # 0.8 K/mcL (0.6-4.6); Lymphocytes % 8.2 %; Mean Corpuscular HGB Conc 29.6 g/dL (31.6-35.5); Mean Corpuscular Hemoglobin 27.1 pg (28.0-33.3); Mean Corpuscular Volume 91.4 fL (83.0-100.0); Mean Platelet Volume 10.7 fL (9.4-12.4); Monocytes # 0.7 K/mcL (0.0-1.3); Monocytes % 7.3 %; Neutrophils # 7.9 K/mcL (1.6-8.9); Nucleated Red Blood Cells 0.3 /100 WBC (0); Platelet Count 185 K/mcL (140-400); Red Blood Count 3.95 M/mcL (3.82-4.97); Red Cell Distribution Width 16.5 % (11.5-14.5); Segmented Neutrophils % 82.9 %
[2017-03-29 04:22] LABS: BUN/Creatinine Ratio 48 (6-26); Blood Urea Nitrogen 33 mg/dL (8-23); Calcium 8.4 mg/dL (8.6-10.3); Carbon Dioxide 28 mEq/L (23-29); Chloride 114 mEq/L (98-107); Glucose 201 mg/dL (70-105); Osmolality,Calculated 321 (280-300); Phosphorous 4.1 mg/dL (2.7-4.5); Potassium 3.8 mEq/L (3.5-5.1); Sodium 149 mEq/L (136-145); eGFR For African Americans > 60 (> 60); eGFR For Non-African Americans > 60 (> 60)
[2017-03-29] MEDS: Insulin LISPRO 300 UNITS/3 ML VIAL SQ SCH ×5 (05:15→20:29)
[2017-03-29] MEDS: *HR* Metoprolol 5 MG/5 ML VIAL IVP SCH ×3 (06:12→18:39)
[2017-03-29] MEDS: Pantoprazole 40 MG VIAL IVP SCH ×2 (06:12→18:36)
[2017-03-29] MEDS: Budesonide/Formoterol 160/4.5 MDI IH SCH ×2 (07:55→20:05)
--- NOTE | 2017-03-29 08:17 | Pulmonology Progress Note ---
<AzamOsmin W - Last Filed: 03/29/17 10:26> Date of Encounter: 03/29/17 Objective PUL Vital signs: Last Vital Signs Temp 98.1 F 03/29/17 07:30 Pulse 95 03/29/17 06:00 Resp 20 03/29/17 07:56 BP 144/54 03/29/17 06:00 Pulse Ox 96 03/29/17 07:56 Results - Laboratory Findings CBC and BMP: 03/29/17 03:31 03/29/17 03:30 PT/INR, D-dimer PT 11.5 Seconds (9.4-12.1) 03/25/17 04:21 Abnormal lab findings: Abnormal lab results Hgb 10.7 g/dL (11.5-15.4) L 03/29/17 03:31 MCH 27.1 pg (28.0-33.3) L 03/29/17 03:31 MCHC 29.6 g/dL (31.6-35.5) L 03/29/17 03:31 RDW 16.5 % (11.5-14.5) H 03/29/17 03:31 Nucleated RBCs/100 WBC 0.3 /100 WBC (0) H 03/29/17 03:31 APTT 24.4 Seconds (26.0-36.0) L 03/25/17 04:21 VBG pH 7.44 pH Units (7.32-7.42) H 03/28/17 04:28 VBG pO2 119 mmHg (25-50) H 03/28/17 04:19 VBG HCO3 28 mEq/L (21-27) H 03/28/17 04:19 Sodium 149 mEq/L (136-145) H 03/29/17 03:30 Chloride 114 mEq/L (98-107) H 03/29/17 03:30 BUN 33 mg/dL (8-23) H 03/29/17 03:30 BUN/Creatinine Ratio 48 (6-26) H 03/29/17 03:30 Glucose 201 mg/dL (70-105) H 03/29/17 03:30 POC Glucose 244 (58-89) H 03/29/17 07:57 Calculated Osmolality 321 (280-300) H 03/29/17 03:30 Calcium 8.4 mg/dL (8.6-10.3) L 03/29/17 03:30 Troponin I 0.10 ng/mL (< 0.04) H* 03/28/17 04:02 B-Natriuretic Peptide 252 pg/mL (Less than 100) H 03/26/17 10:56 Prealbumin 12.4 mg/dL (17.0-34.0) L 03/27/17 04:27 - Clinical Findings Intake & Output: Intake & Output 03/28/17 03/29/17 03/29/17 23:59 07:59 15:59 Intake Total 200 / 200 1460 / 1460 Output Total 1850 / 1850 1050 / 1050 Balance -1650 / -1650 410 / 410 Weight 71.3 kg Consult Discharge Plan - Plan Referrals: Memo Cody MD [Primary Care Provider] - - Attending Attestation I examined this patient and my medical decision-making was reviewed with the Resident Physician. I agree with the documented findings, disposition and treatment plan as described except to the extent set forth below. We independently had [id number] contact with the patient Patient seen and examined at bedside Labs, radiology, chart personally reviewed. Management was reviewed during multidisciplinary critical care rounds. 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 Monitor for delirium Pulm: Acute hypoxic respiratory failure s/t aspriation acceptable oxygenation on room air. today. Suspected underlying COPD withut AECOPD. Cards:BP stable monitor on Tele FEN-GI:NPO for now s/t Gastric Volvulus. Gen surgery following plan for OR today Renal: Urine output monitored. ID: Treating for aspriation PNA with plan to deescalate Heme/Onc: Cont DVT prophylaxis per routin Endo: Glucose Monitored Integ/MSK: Skin Care per routine ICU Nursing Protocol to prevent ulcers. Lines: All lines examined without evidence of infection : Dispo: Stable fro med tele at this time. Will evaluate for posteropeartive ICU needs. CODE: Full Code. 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 NG tube was placed. Subsequent chest x-ray and chest CT demonstrates opacities consistent with aspiration. Patient is hemodynamically stable Tolerated Bipap over the weekend at night with NC 4L during the day Plan: Continuation of BiPAP as necessary but patient has been tolerating high flow oxygen this morning Nothing by mouth NG tube - 115 out over the last 24 hours Zosyn for anaerobic coverage Started Solu-Medrol 6 mg every 8 hours Duonbes q4 with symbicort (2) Aspiration into respiratory tract Current Visit: Yes Status: Acute See above Qualifiers: Encounter type: subsequent encounter Qualified Code(s): T17.908D - Unspecified foreign body in respiratory tract, part unspecified causing other injury, subsequent encounter (3) Tachycardia Current Visit: Yes Status: Acute Patient initially believed to have developed new onset atrial fibrillation. -Developed A. fib RVR with rate into the 120s. -Upon review of EKG, patient's rapid HR was likely 2/2 atrial tachycardia. -Per cardiology, initiate low dose ASA when safe from a surgical perspective. 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 today (5) DVT prophylaxis Current Visit: Yes Status: Acute EPCDs Subjective Principal diagnosis: aspiration Interval history: Patient was transferred to the ICU for acute respiratory failure after aspiration of gastrograffin Plan for paraesophageal hernia repair later this afternoon Patient is resting comfortable in bed this morning Patient denies any overnight events Patient has no new complaints Denies any new chest pain, shortness of breath, palpitations, abdominal pain, nausea, vomiting or lower extremity edema Objective PUL Vital signs: Last Vital Signs Temp 98.3 F 03/29/17 04:50 Pulse 95 03/29/17 06:00 Resp 20 03/29/17 07:56 BP 144/54 03/29/17 06:00 Pulse Ox 96 03/29/17 07:56 General appearance: no acute distress Eyes: nonicteric ENT: oropharynx moist Neck: supple Effort: normal Auscultation: left: diminished breath sounds (Crackles) Cardiovascular: regular rate and rhythm Gastrointestinal: normoactive bowel sounds, non-distended Integumentary: normal Extremities: no cyanosis, no edema, no clubbing Musculoskeletal: no deformities normal mental status, non-focal exam mood appropriate, affect normal Results - Laboratory Findings CBC and BMP: 03/29/17 03:31 03/29/17 03:30 PT/INR, D-dimer PT 11.5 Seconds (9.4-12.1) 03/25/17 04:21 Abnormal lab findings: Abnormal lab results Hgb 10.7 g/dL (11.5-15.4) L 03/29/17 03:31 MCH 27.1 pg (28.0-33.3) L 03/29/17 03:31 MCHC 29.6 g/dL (31.6-35.5) L 03/29/17 03:31 RDW 16.5 % (11.5-14.5) H 03/29/17 03:31 Nucleated RBCs/100 WBC 0.3 /100 WBC (0) H 03/29/17 03:31 APTT 24.4 Seconds (26.0-36.0) L 03/25/17 04:21 VBG pH 7.44 pH Units (7.32-7.42) H 03/28/17 04:28 VBG pO2 119 mmHg (25-50) H 03/28/17 04:19 VBG HCO3 28 mEq/L (21-27) H 03/28/17 04:19 Sodium 149 mEq/L (136-145) H 03/29/17 03:30 Chloride 114 mEq/L (98-107) H 03/29/17 03:30 BUN 33 mg/dL (8-23) H 03/29/17 03:30 BUN/Creatinine Ratio 48 (6-26) H 03/29/17 03:30 Glucose 201 mg/dL (70-105) H 03/29/17 03:30 POC Glucose 244 (58-89) H 03/29/17 07:57 Calculated Osmolality 321 (280-300) H 03/29/17 03:30 Calcium 8.4 mg/dL (8.6-10.3) L 03/29/17 03:30 Troponin I 0.10 ng/mL (< 0.04) H* 03/28/17 04:02 B-Natriuretic Peptide 252 pg/mL (Less than 100) H 03/26/17 10:56 Prealbumin 12.4 mg/dL (17.0-34.0) L 03/27/17 04:27 - Clinical Findings Intake & Output: Intake & Output 03/28/17 03/29/17 03/29/17 23:59 07:59 15:59 Intake Total 200 / 200 1460 / 1460 Output Total 1850 / 1850 600 / 600 Balance -1650 / -1650 860 / 860 Weight 71.3 kg - VTE Documentation of Mechanical Device: Intermittent pneumatic compression device
[2017-03-29] MEDS: Piperacillin/Tazobactam 3.375 GM/200 ML BAG IVPB SCH ×2 (08:37→18:44)
[2017-03-29] MEDS: methylPREDNISolone 125 MG/2 ML VIAL IVP SCH ×2 (08:38→18:36)
[2017-03-29] MEDS: Saliva Stimulant 100ml BOTTLE PO PRN (11:38)
--- NOTE | 2017-03-29 14:50 | Anesthesia Evaluation PreOp ---
Date of Encounter: 03/29/17 Time of Encounter: 14:47 - Past History Planned Operation: Open Hiatal Hernia Repair Cardiac History: HTN (Hypertensive urngency upon admission 03/26/2017), Hyperlipidemia (maintained on Lovastatin) Pulmonary History: Denies Any Significant HX [employer] History: Other (Anxiety/Depression) Other Medical History: Renal, Thyroid, GERD (maintained on Ranitdine. Pratibha Reglan this admission for intractable vomiting) Anesthesia History: No Prior Anesthetic Complications, Past Anesthesia Alcohol Use: none Drug use: none Medications and Allergies Levothyroxine [Synthroid] 25 mcg PO DAILY 02/22/17 [History] Sertraline [Zoloft] 50 mg PO DAILY 02/22/17 [History] Lovastatin [Mevacor] 40 mg PO HS 03/24/17 [History] Ranitidine HCl [Zantac] 150 mg PO BID 03/24/17 [History] Ascorbic Acid/Vit B12/Zinc [Sm Zinc Plus Lozenge] 1 tab PO DAILY 03/25/17 [ History] Aspirin [Lo-Dose Aspirin EC] 81 mg PO DAILY 03/25/17 [History] Ferrous Sulfate [Iron] 81 mg PO DAILY 03/25/17 [History] Multivitamin [One Daily Multivitamin] 1 tab PO DAILY 03/25/17 [History] [place]-3 Fatty Acids [Fish Oil] 300 mg PO DAILY 03/25/17 [History] 3 Allergy/AdvReac Type Severity Reaction Status Date / Time rosuvastatin [From Crestor] Allergy Hives Verified 03/24/17 20:46 - Meds/Allergy Pre-op Review Medications Reviewed: Yes Allergies Reviewed: Yes Beta Blockers on Current Med List: No Anesthesia Results - Labs 03/29/17 03:31 03/29/17 03:30 Laboratory Results Impressions Head CT 03/25/17 08:24 IMPRESSION: No acute intracranial abnormality. D/ / Patricio Pineda MD / Patricio Pineda MD Interpreting Provider: Patricio Pineda MD Upper GI Series 03/25/17 14:07 IMPRESSION: 1. Silent aspiration of contrast immediately at beginning of examination. Examination was subsequently terminated. Recommend consultation with speech pathology. 2. Large hiatal hernia. Findings were discussed with Dr. Adeline Bingham immediately after the examination at 3:41pm on 03/25/2017. D/ / 03/25/2017 16:20:30 Patricio Pineda MD / miguelina Interpreting Provider: Patricio Pineda MD Chest X-Ray 03/25/17 15:32 IMPRESSION: 1. Unchanged left basilar pulmonary opacity, which may represent combination of atelectasis, pneumonia, and/or aspiration. Consider follow-up chest radiograph to more morning given findings on upper GI examination 2. Large hiatal hernia. 3. Unchanged mild pulmonary interstitial edema with enlarged cardiomediastinal silhouette. D/ / Patricio Pineda MD / Patricio Pineda MD Interpreting Provider: Patricio Pineda MD X-Ray 03/25/17 17:03 IMPRESSION: Large hiatal hernia redemonstrated with nearly the entirety of the stomach above the diaphragm, better appreciated on CT exam yesterday. Enteric tube is present with tip and side-port likely within the stomach but both within the herniated portion of the stomach above the diaphragm. D/ / 03/25/2017 18:03:35 Randy Lopez MD / [email or web address] Interpreting Provider: Randy Lopez MD Chest CT 03/26/17 07:10 IMPRESSION: 1. Multifocal airspace consolidation in the left lung has the appearance of pneumonia 2. Small right larger than left pleural effusions with compressive atelectasis 3. Large hiatal hernia. Gastric tube is in the mid thoracic esophagus D/ / Niko Soto MD / Niko Soto MD Interpreting Provider: iNko Soto MD Gallbladder Ultrasound 03/26/17 10:00 IMPRESSION: 1. Cholelithiasis with borderline gallbladder wall thickening. However sonographic Fuentes's sign is negative. If there is still concern for acute cholecystitis, a HIDA scan can be performed for further evaluation. 2. Small right pleural effusion. D/ / Augustus Mcgill MD / Augustus Mcgill MD Interpreting Provider: Augustus Mcgill MD Echocardiogram 03/26/17 11:14 Impressions: LVEF 65-70%. Mild left ventricular diastolic dysfunction. Normal right ventricular structure and function. Severely dilated left atrium. Mild-moderate tricuspid regurgitation. Probably mild pulmonary hypertension, TR gradient 34 mmHg. Left Ventricular Wall Motion: Rest Echo Findings All wall segments showed normal motion. Findings: Study Quality * Technically somewhat challenging - patient supine, intubated in ICU. ECG Findings * Sinus tachycardia. Left Ventricle * LVEF 65-70%. * Asymmetric basal septal hypertrophy. * Mild left ventricular diastolic dysfunction. Right Ventricle * Normal right ventricular structure and function. Left Atrium * Severely dilated left atrium. Right Atrium * Normal right atrial size. Aortic Valve * No aortic regurgitation. * Trileaflet aortic valve. * Thickened and calcified non and left coronary cusps along the closure line. * No aortic stenosis. Mitral Valve * Normal mitral valve structure. * No mitral regurgitation. * No mitral stenosis. Tricuspid Valve * Tricuspid valve not well visualized. * Mild-moderate tricuspid regurgitation. Pulmonic Valve * Pulmonic valve is not well visualized. * No pulmonic stenosis. * No pulmonic regurgitation. Pulmonary Artery * Pulmonary artery not well visualized. Aorta * Normally sized aortic root. Pericardium * There is no pericardial effusion present. Interatrial Septum * Interatrial septum not well evaluated. IVC * The IVC is not well evaluated. - Imaging EKG: image reviewed Anesthesia Exam Vital Signs Temp Pulse Resp BP Pulse Ox 03/29/17 14:22 103 22 152/95 94 03/29/17 13:27 90 22 174/81 93 03/29/17 12:00 98.3 F 82 22 172/82 93 03/29/17 11:38 20 92 03/29/17 11:00 95 20 174/86 92 03/29/17 10:00 96 20 167/90 92 03/29/17 09:00 114 20 120/91 91 03/29/17 08:00 98.1 F 103 20 166/93 90 03/29/17 07:56 20 96 03/29/17 07:30 98.1 F 03/29/17 07:00 85 20 164/72 92 03/29/17 06:00 95 20 144/54 96 03/29/17 05:14 100 20 176/72 96 03/29/17 04:50 98.3 F 03/29/17 04:05 20 100 03/29/17 04:00 89 20 173/74 95 03/29/17 03:00 89 24 183/89 97 03/29/17 02:00 89 24 171/80 94 03/29/17 00:58 98 26 163/77 94 03/29/17 00:00 90 20 156/63 99 03/28/17 23:56 20 99 03/28/17 23:00 98.5 F 98 22 147/70 93 03/28/17 22:00 99 24 156/69 93 03/28/17 21:00 102 26 124/59 93 03/28/17 20:17 98.4 F 03/28/17 20:02 20 175/77 95 03/28/17 20:00 112 18 148/61 93 03/28/17 19:00 112 18 183/92 93 03/28/17 18:00 108 18 169/86 93 03/28/17 17:00 110 18 155/60 92 03/28/17 16:12 98.0 F 03/28/17 15:47 18 98 03/28/17 15:00 98 16 152/76 93 Intake and Output 03/28/17 03/29/17 03/29/17 23:59 07:59 15:59 Intake Total 200 / 200 1460 / 1460 Output Total 1850 / 1850 1050 / 1050 350 / 350 Balance -1650 / -1650 410 / 410 -350 / -350 Intake: IV Fluids 200 / 200 1460 / 1460 Dextrose 5% 1,000 ML @ 100 mls/ 1000 / 1000 hr IVC .Q10H [facility] Rx#:[id number] Zosyn Premix 3.375 GM/200 ML 3. 200 / 200 200 / 200 375 gm In 200 ml @ 50 mls/hr IVPB Q8H [facility] Rx#:[id number] Potassium Phosphate 44 MEQ In 0 260 / 260 .9 % Sodium Chloride 250 ML @ 40 mls/hr IVPB Q10H [facility] Rx#: [id number] Oral 0 / 0 Output: Catheter 1850 / 1850 1050 / 1050 350 / 350 Gastric Drainage 0 / 0 Other: Meal Lunch Weight 71.3 kg Blood Glucose* 250 244 212 Height: 5'7" Weight: 157# BMI = 24.6 NPO (# of Hours): NPO/Pt on TPN - HEENT Pupil (Motor): Pupils equal, EOMI Mallampati: II Teeth: Edentulous Oral Opening: Greater than 3 - [employer]SE [employer] LOC: Oriented [employer] Motor: Normal RUE, Normal LUE, Normal RLE, Normal LLE, Normal Face [employer] Sensory: Normal: RUE, LUE, RLE, LLE, Face - Cardiac Rhythm: Regular Murmur: None - Pulmonary Breath Sounds: bilateral Clear Respiratory Effort: Symmetrical Anesthesia Assess/Plan ASA Score: 3 Modified Cesilia Scale for Level of Consciousness: Cooperative, oriented, and tranquil Anesthetic Plan: General Monitoring Plan: Standard Monitors Recovery Plan: PACU Anes Supervising Prov Stmt: PT seen/evaluated, R&B DIscussed, questions answered and consent obtained. Shelley Ramos MD
[2017-03-29] MEDS ORDERED: cefOXitin 1,000 MG, 0.9 % Sodium Chloride 1,000 ML IR ONE (15:00)
[2017-03-29] MEDS ORDERED: *HR* Propofol 200 MG/20 ML VIAL IVP ONE (16:00)
[2017-03-29] MEDS ORDERED: *HR* Succinylcholine 200 MG/10 ML VIAL IVP ONE (16:00)
[2017-03-29] MEDS ORDERED: *HR* Rocuronium Bromide 50 MG/5 ML VIAL ONE (16:00)
[2017-03-29] MEDS ORDERED: Lidocaine -MPF 2% 2 ML VIAL ONE (16:00)
[2017-03-29] MEDS ORDERED: *HR* Vasopressin 20 UNIT/ML VIAL ONE (16:13)
[2017-03-29] MEDS ORDERED: *HR* Phenylephrine 10 MG/ML VIAL ONE (16:55)
[2017-03-29] MEDS ORDERED: Clinimix E 5%-15% SOLUTION 2,000 ML with MVI, adult with vitamin K 10 ML IVC SCH (17:00)
[2017-03-29] MEDS ORDERED: Neostigmine Methylsulfate 3 MG/3 ML SYRINGE ONE (17:48)
[2017-03-29] MEDS ORDERED: *HR* HYDROmorphone 2 MG/ML SYRINGE ONE (17:48)
--- NOTE | 2017-03-29 17:59 | Operative Note ---
Date of procedure: 03/29/17 Pre-op diagnosis: Paraesophageal hernia with intrathoracic gastric volvulus Post-op diagnosis: other (Paraesophageal hernia with intrathoracic gastric volvulus. Segmental gastric necrosis. Distal esophageal necrosis) Procedure: #1 reduction of gastric volvulus #2 repair of hiatal hernia #3 debridement and primary repair of distal esophagus #4 resection of gastric necrosis (tangential resection of full-thickness necrotic ulcers times 4) #5 gastrostomy tube #6 jejunostomy tube Anesthesia: GETA Surgeon: Kayden Castillo Was there an preschool assistant teacher present: Yes Video Arcade Manager: Norma Timmons Estimated blood loss (cc): 200 Specimen: Gastric cardia with 4 areas of full-thickness gastric necrosis Condition: stable Disposition: ICU Procedure in Detail: After informed consent the patient was taken to the major operative suite placed in the supine position given adequate general anesthetic. The abdomen was prepped and draped in sterile fashion utilizing ChloraPrep standard draping techniques. Timeout was taken. Patient was identified. Made an upper midline abdominal incision. The lateral segment of the left lobe of the liver was mobilized by dividing the triangular ligament. This was retracted inferiorly. About 20% of the stomach remained in the abdomen. There was a complex set of adhesions at the hiatus. The stomach was reduced back into the abdomen. There were 4 areas of full-thickness gastric wall necrosis in the cardia. This started about 3 cm distal to the gastroesophageal junction. There was a dense adhesion going from the gastroesophageal junction into the left chest. The stomach rotated around this adhesion. This caused the area of necrosis on the cardia. The stomach and the upper part of the mediastinum was free of any injury. As this was pulled down in the abdominal cavity it was noted that the distal stomach had excellent blood supply. As the adhesion at the hiatus was divided he was immediately noted that air was area of distal esophageal necrosis just above the gastroesophageal junction. This was in the same orientation to the adhesion as the areas of necrosis on the cardia. This appeared to be an area of maximum compression, straining, and ischemia at the point of gastric volvulus. There was a moderate amount of contamination in the mediastinum with vegetable matter. I was able to remove all of the contamination. The patient is 81 years old and relatively frail. I did not feel that she would tolerate a proximal gastrectomy with primary anastomosis. The esophagus was in very poor overall condition with a very thinned muscular wall. This gave me a few choices for reconstruction. I decided the least morbid operation would be to debride the esophagus and primarily repair the esophagus over a 54-Indonesian bougie and then patch the area with the attached hernia sac. This was done in 3 layers using interrupted Vicryl and interrupted silk. The 4 punctate areas of full-thickness gastric necrosis on the cardia were then excised with a tangential staple line and essentially removing the cardia. The end staple line was about 2 cm distal to the gastroesophageal junction. The staple line was about 12 cm in length. The specimen removed all the areas of necrosis. I oversewed the staple line with interrupted seromuscular 2-0 silk. The size of the gastric volvulus was remarkable. The amount of intrathoracic stomach and hernia sac was also quite large. Because of the esophageal repair and staple line did not feel a Mela fundoplication was appropriate. The hiatal hernia was enormous area I decided to close the hiatus with 5 stitches of interrupted 2-0 Ethibond. I did not use pledgets. I felt that the field was contaminated and I did not want to leave any bulking material like pledgets they could be a nidus of infection. This gave an excellent technical result. I placed a #10 Chuy-Altamirano drain in the left upper quadrant and fed the end of the drain into the hiatus in the mediastinum. A pursestring stitch was then placed 5 cm proximal to the pylorus and I brought a Bard tri-funnel gastrostomy replacement tube through the abdominal wall and placed in the stomach. The balloon was insufflated and I tied the pursestring stitch. The stomach was then affixed to the anterior abdominal wall with a running 2-0 Prolene stitch. This gave an excellent technical result for gastrostomy. A nasogastric tube was then placed and easily passed the area of esophageal repair. I brought a limb of jejunum to the anterior abdominal wall on the left side of the abdomen. I made a pursestring stitch in the antimesenteric border and brought a jejunostomy tube through the anterior abdominal wall. This is placed into the jejunum. I tied the pursestring stitch. I used 3 stitches of 2-0 silk to create a short Witzel tunnel. The jejunum was attached to the anterior abdominal wall with running 3-0 Prolene. I irrigated with copious amounts of antibiotic containing solution. It is noted that the upper tip of the spleen was in the chest. As this was mobilized and the abdomen the adhesions between the mediastinum and the spleen a bolster small portion of capsule. This bleeding resulted in 100 mL blood loss. This was controlled with Surgicel. Total blood loss was 200 mL. The midline was closed with looped 0 PDS. The skin was closed with skin clips. She tolerated the procedure well and was transferred to the intensive care unit for further therapy.
[2017-03-30] MEDS: Ipratropium/Albuterol Neb 3 ML IH SCH ×7 (00:12→23:21)
[2017-03-30] MEDS: *HR* Metoprolol 5 MG/5 ML VIAL IVP SCH ×5 (00:21→23:44)
[2017-03-30] MEDS: Saliva Stimulant 100ml BOTTLE PO PRN ×4 (00:22→16:57)
[2017-03-30] MEDS: Insulin LISPRO 300 UNITS/3 ML VIAL SQ SCH ×7 (00:22→23:42)
[2017-03-30] MEDS: Piperacillin/Tazobactam 3.375 GM/200 ML BAG IVPB SCH ×4 (00:23→23:44)
[2017-03-30] MEDS: *HR* Morphine 2 MG/ML SYRINGE IVP PRN ×6 (00:29→21:55)
[2017-03-30 04:39] LABS: Calcium 7.6 mg/dL (8.6-10.3); Magnesium 1.9 mg/dL (1.6-2.6); Phosphorous 3.4 mg/dL (2.7-4.5); Potassium 3.8 mEq/L (3.5-5.1)
[2017-03-30] MEDS: methylPREDNISolone 125 MG/2 ML VIAL IVP SCH (05:02)
[2017-03-30] MEDS: Pantoprazole 40 MG VIAL IVP SCH ×2 (05:02→16:20)
--- NOTE | 2017-03-30 07:07 | General Surgery Progress Note ---
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 Do not remove, if falls off, do not replace -MARILOU drain and Gtube inspected with Dr. Castillo this AM, and placed in LUQ, drainage to remain in place -Dressing to abdominal incision in place. -Continue Abx -If pt develops fever, tachycardia, complaint of escalating chest pain, or excess wound drainage, recommend CXR stat (2) Aspiration into respiratory tract Current Visit: Yes Status: Acute s/p aspiration with Gastograffin Qualifiers: Encounter type: subsequent encounter Qualified Code(s): T17.908D - Unspecified foreign body in respiratory tract, part unspecified causing other injury, subsequent encounter (3) New onset atrial fibrillation Current Visit: Yes Status: Acute Cardiology on consult. (4) Severe protein-calorie malnutrition Current Visit: Yes Status: Acute Per primary team. (5) DVT prophylaxis Current Visit: Yes Status: Acute Per protocol. Management per primary team. Subjective Patient reports: no new complaints, afebrile Objective Vital Signs - Last 8 Hours Temp Pulse Resp BP Pulse Ox 03/30/17 06:00 87 20 115/83 90 03/30/17 05:00 130 14 111/86 90 03/30/17 04:30 18 95 03/30/17 04:00 98.2 F 107 16 98/74 94 03/30/17 03:00 102 17 95/57 96 03/30/17 02:00 98 16 98/67 94 03/30/17 01:00 99 16 95/69 94 03/30/17 00:13 12 92 03/30/17 00:00 105 14 106/55 92 03/29/17 23:57 98.3 F Intake and Output 03/29/17 03/29/17 03/30/17 15:59 23:59 07:59 Intake Total 200 / 200 200 / 200 200 / 200 Output Total 350 / 350 740 / 740 115 / 115 Balance -150 / -150 -540 / -540 85 / 85 Intake: IV Fluids 200 / 200 200 / 200 200 / 200 Zosyn Premix 3.375 GM/200 ML 3. 200 / 200 200 / 200 200 / 200 375 gm In 200 ml @ 50 mls/hr IVPB Q8H [facility] Rx#:[id number] Oral 0 / 0 0 / 0 Output: Urine 200 / 200 Estimated Blood Loss 200 / 200 Other 0 / 0 5 / 5 Catheter 350 / 350 200 / 200 90 / 90 Gastric Drainage 100 / 100 0 / 0 Wound Drainage 40 / 40 20 / 20 Right Upper Abdomen 40 / 40 20 / 20 Other: Meal Lunch Weight 75 kg Blood Glucose* 212 242 - Eyes normal ocular movement - Respiratory normal expansion, normal respiratory effort, other (Absent: Bowel sounds) - Cardiovascular Cardiovascular exam: Absent: tachycardia Addtional Comments: +S1,S2 - Abdomen Abdomen: Present: bowel sounds present, soft. Absent: guarding, rebound Additional Comments: Drainage appropriate. - Incision Incision: Present: intact (dressing) - Genitourinary other (Peralta in place ) - Labs 03/30/17 04:10 03/30/17 04:10 Diabetes panel 03/30/17 Range/Units 04:10 Sodium 143 (136-145) mEq/L Potassium 3.8 (3.5-5.1) mEq/L Chloride 111 H (98-107) mEq/L Carbon Dioxide 25 (23-29) mEq/L BUN 47 H (8-23) mg/dL Creatinine 1.08 (0.60-1.20) mg/dL Glucose 247 H (70-105) mg/dL Calcium 7.6 L (8.6-10.3) mg/dL Calcium panel 03/30/17 Range/Units 04:10 Calcium 7.6 L (8.6-10.3) mg/dL Phosphorus 3.4 (2.7-4.5) mg/dL Pituitary panel 03/30/17 Range/Units 04:10 Sodium 143 (136-145) mEq/L Potassium 3.8 (3.5-5.1) mEq/L Chloride 111 H (98-107) mEq/L Carbon Dioxide 25 (23-29) mEq/L BUN 47 H (8-23) mg/dL Creatinine 1.08 (0.60-1.20) mg/dL Glucose 247 H (70-105) mg/dL Calcium 7.6 L (8.6-10.3) mg/dL Adrenal panel 03/30/17 Range/Units 04:10 Sodium 143 (136-145) mEq/L Potassium 3.8 (3.5-5.1) mEq/L Chloride 111 H (98-107) mEq/L Carbon Dioxide 25 (23-29) mEq/L BUN 47 H (8-23) mg/dL Creatinine 1.08 (0.60-1.20) mg/dL Glucose 247 H (70-105) mg/dL Calcium 7.6 L (8.6-10.3) mg/dL - VTE Documentation of Mechanical Device: Intermittent pneumatic compression device Consult Discharge Plan - Plan Referrals: Memo Cody MD [Primary Care Provider] - <Kayden Castillo - Last Filed: 03/30/17 15:07> Date of Encounter: 03/30/17 Objective Vital Signs - Last 8 Hours Temp Pulse Resp BP Pulse Ox 03/30/17 14:00 96 18 150/93 95 03/30/17 13:00 94 18 136/79 91 03/30/17 12:00 93 18 149/88 94 03/30/17 11:29 16 96 03/30/17 11:07 96 03/30/17 11:00 98.3 F 97 16 143/78 96 03/30/17 10:00 100 17 92 03/30/17 09:00 96 16 129/79 92 03/30/17 08:21 98.0 F 03/30/17 08:19 20 91 03/30/17 08:05 96 03/30/17 08:00 97 16 140/91 92 Intake and Output 03/29/17 03/30/17 03/30/17 23:59 07:59 15:59 Intake Total 200 / 200 450 / 450 900 / 900 Output Total 740 / 740 115 / 115 265 / 265 Balance -540 / -540 335 / 335 635 / 635 Intake: IV Fluids 200 / 200 450 / 450 900 / 900 Dextrose 5% 1,000 ML @ 50 mls/ 700 / 700 hr IVC .Q20H [facility] Rx#:[id number] Intralipid 20% 250 ML @ 21 mls/ 250 / 250 hr IVPB DAILY@1700 [facility] Rx#: [id number] Zosyn Premix 3.375 GM/200 ML 3. 200 / 200 200 / 200 200 / 200 375 gm In 200 ml @ 50 mls/hr IVPB Q8H [facility] Rx#:[id number] Oral 0 / 0 0 / 0 Output: Urine 200 / 200 Estimated Blood Loss 200 / 200 Other 0 / 0 5 / 5 Catheter 200 / 200 90 / 90 250 / 250 Gastric Drainage 100 / 100 0 / 0 0 / 0 Wound Drainage 40 / 40 20 / 20 15 / 15 Right Upper Abdomen 40 / 40 20 / 20 Other: Weight 75 kg Blood Glucose* 242 151 - Labs 03/30/17 04:10 03/30/17 04:10 Diabetes panel 03/30/17 Range/Units 04:10 Sodium 143 (136-145) mEq/L Potassium 3.8 (3.5-5.1) mEq/L Chloride 111 H (98-107) mEq/L Carbon Dioxide 25 (23-29) mEq/L BUN 47 H (8-23) mg/dL Creatinine 1.08 (0.60-1.20) mg/dL Glucose 247 H (70-105) mg/dL Calcium 7.6 L (8.6-10.3) mg/dL Calcium panel 03/30/17 Range/Units 04:10 Calcium 7.6 L (8.6-10.3) mg/dL Phosphorus 3.4 (2.7-4.5) mg/dL Pituitary panel 03/30/17 Range/Units 04:10 Sodium 143 (136-145) mEq/L Potassium 3.8 (3.5-5.1) mEq/L Chloride 111 H (98-107) mEq/L Carbon Dioxide 25 (23-29) mEq/L BUN 47 H (8-23) mg/dL Creatinine 1.08 (0.60-1.20) mg/dL Glucose 247 H (70-105) mg/dL Calcium 7.6 L (8.6-10.3) mg/dL Adrenal panel 03/30/17 Range/Units 04:10 Sodium 143 (136-145) mEq/L Potassium 3.8 (3.5-5.1) mEq/L Chloride 111 H (98-107) mEq/L Carbon Dioxide 25 (23-29) mEq/L BUN 47 H (8-23) mg/dL Creatinine 1.08 (0.60-1.20) mg/dL Glucose 247 H (70-105) mg/dL Calcium 7.6 L (8.6-10.3) mg/dL - Attending Attestation I examined this patient and my medical decision-making was reviewed with the Resident Physician. I agree with the documented findings, disposition and treatment plan as described except to the extent set forth below. The patient is seen and evaluated morning rounds with resident. She is stable after highly complex repair of gastric volvulus with ischemic necrosis of the distal esophagus and cardia of the stomach. Chuy-Altamirano drain is free of any bilious material. Continue current drainage with NG gastrostomy and jejunostomy tube as well as Chuy-Altamirano drain Kayden Castillo MD FACS
--- NOTE | 2017-03-30 07:58 | Pulmonology Progress Note ---
<SelenejohannyOsmin W - Last Filed: 03/30/17 09:24> Date of Encounter: 03/30/17 Objective PUL Vital signs: Last Vital Signs Temp 98.0 F 03/30/17 08:21 Pulse 97 03/30/17 08:00 Resp 20 03/30/17 08:19 BP 140/91 03/30/17 08:00 Pulse Ox 91 03/30/17 08:19 Results - Laboratory Findings CBC and BMP: 03/30/17 04:10 03/30/17 04:10 PT/INR, D-dimer PT 11.5 Seconds (9.4-12.1) 03/25/17 04:21 Abnormal lab findings: Abnormal lab results RBC 3.56 M/mcL (3.82-4.97) L 03/30/17 04:10 Hgb 9.7 g/dL (11.5-15.4) L 03/30/17 04:10 Hct 33.4 % (35.3-44.9) L 03/30/17 04:10 MCH 27.2 pg (28.0-33.3) L 03/30/17 04:10 MCHC 29.0 g/dL (31.6-35.5) L 03/30/17 04:10 RDW 16.4 % (11.5-14.5) H 03/30/17 04:10 Nucleated RBCs/100 WBC 0.5 /100 WBC (0) H 03/30/17 04:10 APTT 24.4 Seconds (26.0-36.0) L 03/25/17 04:21 VBG pH 7.44 pH Units (7.32-7.42) H 03/28/17 04:28 VBG pO2 119 mmHg (25-50) H 03/28/17 04:19 VBG HCO3 28 mEq/L (21-27) H 03/28/17 04:19 Chloride 111 mEq/L (98-107) H 03/30/17 04:10 BUN 47 mg/dL (8-23) H 03/30/17 04:10 Est GFR ( Amer) 59 (> 60) L 03/30/17 04:10 Est GFR (Non-Af Amer) 48 (> 60) L 03/30/17 04:10 BUN/Creatinine Ratio 44 (6-26) H 03/30/17 04:10 Glucose 247 mg/dL (70-105) H 03/30/17 04:10 POC Glucose 160 (58-89) H 03/30/17 07:34 Calculated Osmolality 317 (280-300) H 03/30/17 04:10 Calcium 7.6 mg/dL (8.6-10.3) L 03/30/17 04:10 Troponin I 0.10 ng/mL (< 0.04) H* 03/28/17 04:02 B-Natriuretic Peptide 252 pg/mL (Less than 100) H 03/26/17 10:56 Prealbumin 12.4 mg/dL (17.0-34.0) L 03/27/17 04:27 - Clinical Findings Intake & Output: Intake & Output 03/29/17 03/30/17 03/30/17 23:59 07:59 15:59 Intake Total 200 / 200 200 / 200 700 / 700 Output Total 740 / 740 115 / 115 100 / 100 Balance -540 / -540 85 / 85 600 / 600 Weight 75 kg Consult Discharge Plan - Plan Referrals: Memo Cody MD [Primary Care Provider] - - Attending Attestation I examined this patient and my medical decision-making was reviewed with the Resident Physician. I agree with the documented findings, disposition and treatment plan as described except to the extent set forth below. We independently had [id number] contact with the patient Patient seen and examined at bedside Labs, radiology, chart personally reviewed. Management was reviewed during multidisciplinary critical care rounds. 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 Stable oxygenation today. Encourage Incentive Spirometry. History of COPD stop steroids cont scheduled bronchodilators. Removed NGT as early as possible. Cards: BP stable cont to monitor on telemetry FEN-GI: S/p Repair of diaphragmatic hernia and volvulus repair. Surgery following. Cont TPN per dietary Renal: No Gamaliel cont to monitor. Hypernatremia is resolved stop D5. ID: Cont Pip Tazo for aspiration Heme/Onc: DVT prophylaxis per rountine. Endo: Glucose Monitored Integ/MSK: Skin Care per routine ICU Nursing Protocol to prevent ulcers. Lines: All lines examined without evidence of infection : Dispo: Stable for transfer out of ICU to Telemetry. CODE: Full Code. 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 NG tube was placed. Subsequent chest x-ray and chest CT demonstrates opacities consistent with aspiration. Patient is hemodynamically stable Tolerated Bipap over the weekend at night with high flow NC 4L/Oxymask during the day Plan: Continuation of BiPAP as necessary but patient has been tolerating high flow oxygen this morning Nothing by mouth NG tube - 100 out over the last 24 hours Zosyn for anaerobic coverage Duonbes q4 with symbicort (4) Aspiration into respiratory tract Current Visit: Yes Status: Acute See above Qualifiers: Encounter type: subsequent encounter Qualified Code(s): T17.908D - Unspecified foreign body in respiratory tract, part unspecified causing other injury, subsequent encounter (5) Tachycardia Current Visit: Yes Status: Acute Patient initially believed to have developed new onset atrial fibrillation. -Developed A. fib RVR with rate into the 120s. -Upon review of EKG, patient's rapid HR was likely 2/2 atrial tachycardia. -Per cardiology, initiate low dose ASA when safe from a surgical perspective. (6) Severe protein-calorie malnutrition Current Visit: Yes Status: Acute Continue to begin therapy per nutrition as patient lost 16.6% waiting 3 months with less than 50% intake for 1 month. Total fluid will be 75. 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) #5 gastrostomy tube #6 jejunostomy tube Patient is resting comfortable in bed this morning Patient denies any overnight events Patient has no new complaints except post-operative pain Denies any new chest pain, shortness of breath, palpitations, abdominal pain, nausea, vomiting or lower extremity edema Objective PUL Vital signs: Last Vital Signs Temp 98.2 F 03/30/17 04:00 Pulse 93 03/30/17 07:00 Resp 20 03/30/17 07:00 BP 147/96 03/30/17 07:00 Pulse Ox 91 03/30/17 07:00 General appearance: no acute distress Eyes: nonicteric ENT: oropharynx moist Neck: supple Effort: normal Auscultation: bilateral: other (crackles left) Cardiovascular: regular rate and rhythm Gastrointestinal: absent bowel sounds, tender (surgical site), non-distended, other (gtube, j tube and MARILOU drian intact. midline incision is clean, dry and intact. No evidence of worsneing shadowing) Integumentary: normal Extremities: no cyanosis, no edema, no clubbing Musculoskeletal: no deformities normal mental status, non-focal exam mood appropriate, affect normal Results - Laboratory Findings CBC and BMP: 03/30/17 04:10 03/30/17 04:10 PT/INR, D-dimer PT 11.5 Seconds (9.4-12.1) 03/25/17 04:21 Abnormal lab findings: Abnormal lab results Hgb 10.7 g/dL (11.5-15.4) L 03/29/17 03:31 MCH 27.1 pg (28.0-33.3) L 03/29/17 03:31 MCHC 29.6 g/dL (31.6-35.5) L 03/29/17 03:31 RDW 16.5 % (11.5-14.5) H 03/29/17 03:31 Nucleated RBCs/100 WBC 0.3 /100 WBC (0) H 03/29/17 03:31 APTT 24.4 Seconds (26.0-36.0) L 03/25/17 04:21 VBG pH 7.44 pH Units (7.32-7.42) H 03/28/17 04:28 VBG pO2 119 mmHg (25-50) H 03/28/17 04:19 VBG HCO3 28 mEq/L (21-27) H 03/28/17 04:19 Chloride 111 mEq/L (98-107) H 03/30/17 04:10 BUN 47 mg/dL (8-23) H 03/30/17 04:10 Est GFR ( Amer) 59 (> 60) L 03/30/17 04:10 Est GFR (Non-Af Amer) 48 (> 60) L 03/30/17 04:10 BUN/Creatinine Ratio 44 (6-26) H 03/30/17 04:10 Glucose 247 mg/dL (70-105) H 03/30/17 04:10 POC Glucose 160 (58-89) H 03/30/17 07:34 Calculated Osmolality 317 (280-300) H 03/30/17 04:10 Calcium 7.6 mg/dL (8.6-10.3) L 03/30/17 04:10 Troponin I 0.10 ng/mL (< 0.04) H* 03/28/17 04:02 B-Natriuretic Peptide 252 pg/mL (Less than 100) H 03/26/17 10:56 Prealbumin 12.4 mg/dL (17.0-34.0) L 03/27/17 04:27 - Clinical Findings Intake & Output: Intake & Output 03/29/17 03/29/17 03/30/17 15:59 23:59 07:59 Intake Total 200 / 200 200 / 200 200 / 200 Output Total 350 / 350 740 / 740 115 / 115 Balance -150 / -150 -540 / -540 85 / 85 Weight 75 kg - VTE Documentation of Mechanical Device: Intermittent pneumatic compression device
[2017-03-30 08:03] LABS: Basophils % 0.1 %; Hematocrit 33.4 % (35.3-44.9); Hemoglobin 9.7 g/dL (11.5-15.4); Immature Granulocytes % 0.7 % (0-4); Lymphocytes # 1.1 K/mcL (0.6-4.6); Mean Corpuscular Hemoglobin 27.2 pg (28.0-33.3); Mean Corpuscular Volume 93.8 fL (83.0-100.0); Mean Platelet Volume 11.2 fL (9.4-12.4); Monocytes % 9.5 %; Neutrophils # 7.9 K/mcL (1.6-8.9); Nucleated Red Blood Cells 0.5 /100 WBC (0); Platelet Count 163 K/mcL (140-400); Red Blood Count 3.56 M/mcL (3.82-4.97); Red Cell Distribution Width 16.4 % (11.5-14.5); Segmented Neutrophils % 78.7 %
[2017-03-30] MEDS: Budesonide/Formoterol 160/4.5 MDI IH SCH ×2 (08:18→19:53)
[2017-03-30] MEDS: D5% in Water 1,000 ML IVC SCH (08:26)
[2017-03-30] MEDS ORDERED: *HR* Heparin 5,000 UNIT/ML VIAL SQ SCH (11:00)
[2017-03-30] MEDS: *HR* Heparin 5,000 UNIT/ML VIAL SQ SCH ×2 (11:13→16:57)
[2017-03-30] MEDS ORDERED: Clinimix E 5%-15% SOLUTION 2,000 ML with MVI, adult with vitamin K 10 ML IVC SCH (17:00)
[2017-03-31] MEDS: D5% in Water 1,000 ML IVC SCH ×3 (01:53→23:31)
[2017-03-31] MEDS: Saliva Stimulant 100ml BOTTLE PO PRN (01:59)
[2017-03-31] MEDS: *HR* Morphine 2 MG/ML SYRINGE IVP PRN ×5 (01:59→23:30)
[2017-03-31] MEDS: Insulin LISPRO 300 UNITS/3 ML VIAL SQ SCH ×6 (03:28→23:30)
[2017-03-31] MEDS: Ipratropium/Albuterol Neb 3 ML IH SCH ×5 (04:01→19:44)
[2017-03-31 04:13] LABS: Basophils % 0.3 %; Eosinophils % 0.3 %; Hematocrit 32.8 % (35.3-44.9); Hemoglobin 9.8 g/dL (11.5-15.4); Immature Granulocytes % 1.7 % (0-4); Lymphocytes # 1.7 K/mcL (0.6-4.6); Lymphocytes % 14.7 %; Mean Corpuscular HGB Conc 29.9 g/dL (31.6-35.5); Mean Corpuscular Hemoglobin 27.5 pg (28.0-33.3); Mean Corpuscular Volume 91.9 fL (83.0-100.0); Mean Platelet Volume 11.2 fL (9.4-12.4); Monocytes % 8.7 %; Neutrophils # 8.6 K/mcL (1.6-8.9); Nucleated Red Blood Cells 0.3 /100 WBC (0); Platelet Count 145 K/mcL (140-400); Red Blood Count 3.57 M/mcL (3.82-4.97); Red Cell Distribution Width 16.3 % (11.5-14.5); Segmented Neutrophils % 74.3 %
[2017-03-31 04:24] LABS: BUN/Creatinine Ratio 50 (6-26); Blood Urea Nitrogen 50 mg/dL (8-23); Calcium 7.8 mg/dL (8.6-10.3); Carbon Dioxide 26 mEq/L (23-29); Chloride 112 mEq/L (98-107); Glucose 184 mg/dL (70-105); Magnesium 2.1 mg/dL (1.6-2.6); Osmolality,Calculated 314 (280-300); Potassium 4.2 mEq/L (3.5-5.1); Sodium 143 mEq/L (136-145); eGFR For African Americans > 60 (> 60); eGFR For Non-African Americans 53 (> 60)
[2017-03-31] MEDS: *HR* Metoprolol 5 MG/5 ML VIAL IVP SCH ×4 (06:12→23:29)
[2017-03-31] MEDS: Pantoprazole 40 MG VIAL IVP SCH ×2 (06:12→17:14)
[2017-03-31] MEDS: *HR* Heparin 5,000 UNIT/ML VIAL SQ SCH ×2 (06:13→18:25)
--- NOTE | 2017-03-31 07:23 | Pulmonology Progress Note ---
<AzamOsmin W - Last Filed: 03/31/17 10:25> Date of Encounter: 03/31/17 Objective PUL Vital signs: Last Vital Signs Temp 98.2 F 03/31/17 07:46 Pulse 100 03/31/17 09:00 Resp 20 03/31/17 09:00 BP 134/75 03/31/17 09:00 Pulse Ox 98 03/31/17 09:00 Results - Laboratory Findings CBC and BMP: 03/31/17 04:02 03/31/17 04:02 PT/INR, D-dimer PT 11.5 Seconds (9.4-12.1) 03/25/17 04:21 Abnormal lab findings: Abnormal lab results WBC 11.5 K/mcL (4.3-11.1) H 03/31/17 04:02 RBC 3.57 M/mcL (3.82-4.97) L 03/31/17 04:02 Hgb 9.8 g/dL (11.5-15.4) L 03/31/17 04:02 Hct 32.8 % (35.3-44.9) L 03/31/17 04:02 MCH 27.5 pg (28.0-33.3) L 03/31/17 04:02 MCHC 29.9 g/dL (31.6-35.5) L 03/31/17 04:02 RDW 16.3 % (11.5-14.5) H 03/31/17 04:02 Nucleated RBCs/100 WBC 0.3 /100 WBC (0) H 03/31/17 04:02 APTT 24.4 Seconds (26.0-36.0) L 03/25/17 04:21 VBG pH 7.44 pH Units (7.32-7.42) H 03/28/17 04:28 VBG pO2 119 mmHg (25-50) H 03/28/17 04:19 VBG HCO3 28 mEq/L (21-27) H 03/28/17 04:19 Chloride 112 mEq/L (98-107) H 03/31/17 04:02 BUN 50 mg/dL (8-23) H 03/31/17 04:02 Est GFR (Non-Af Amer) 53 (> 60) L 03/31/17 04:02 BUN/Creatinine Ratio 50 (6-26) H 03/31/17 04:02 Glucose 184 mg/dL (70-105) H 03/31/17 04:02 POC Glucose 140 (58-89) H 03/31/17 07:21 Calculated Osmolality 314 (280-300) H 03/31/17 04:02 Calcium 7.8 mg/dL (8.6-10.3) L 03/31/17 04:02 Troponin I 0.10 ng/mL (< 0.04) H* 03/28/17 04:02 B-Natriuretic Peptide 252 pg/mL (Less than 100) H 03/26/17 10:56 Prealbumin 12.4 mg/dL (17.0-34.0) L 03/27/17 04:27 - Clinical Findings Intake & Output: Intake & Output 03/30/17 03/31/17 03/31/17 23:59 07:59 15:59 Intake Total 1842 / 1842 450 / 450 Output Total 650 / 650 780 / 780 Balance 1192 / 1192 -330 / -330 Weight 75.5 kg 76.1 kg Consult Discharge Plan - Plan Referrals: Memo Cody MD [Primary Care Provider] - - Attending Attestation I examined this patient and my medical decision-making was reviewed with the Resident Physician. I agree with the documented findings, disposition and treatment plan as described except to the extent set forth below. We independently had [id number] contact with the patient Patient seen and examined at bedside Labs, radiology, chart personally reviewed. Management was reviewed during multidisciplinary critical care rounds. Impression: Acute Hypoxic Respiratory Failure Aspiration PNA Gastric Volvulus s/p Surgical Repair COPD Recs: Aggressive BPT with ambulation/OOBTc/Early NGT removal DVT prophylaxis ABx with plan to stop Wean Fio2 with plan for O2 need eval prior to discharge. Pain Control Stable for transfer to Med/Tele. Pulmonary will sign off. 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 Current Visit: Yes Status: Acute POD #2 status post #1 reduction of gastric volvulus #2 repair of hiatal hernia #3 debridement and primary repair of distal esophagus #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 Patient is hemodynamically stable and appears to be improving Tolerated 8 liters of oxymask overnight Plan: Continuation of oxymask; will attempt to titrate down Nothing by mouth NG tube -50 out over the last 24 hours Zosyn for anaerobic coverage (day 6) Duonbes q4 with symbicort (4) Aspiration into respiratory tract Current Visit: Yes Status: Acute See above Qualifiers: Encounter type: subsequent encounter Qualified Code(s): T17.908D - Unspecified foreign body in respiratory tract, part unspecified causing other injury, subsequent encounter (5) Tachycardia Current Visit: Yes Status: Acute Patient initially believed to have developed new onset atrial fibrillation. -Developed A. fib RVR with rate into the 120s. -Upon review of EKG, patient's rapid HR was likely 2/2 atrial tachycardia. -Per cardiology, initiate low dose ASA when safe from a surgical perspective No runs of tachycardia throughout the night. We will continue with beta blockade (6) Severe protein-calorie malnutrition Current Visit: Yes Status: Acute Continue to begin therapy per nutrition as patient lost 16.6% waiting 3 months with less than 50% intake for 1 month. Total fluid will be 75. 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) #5 gastrostomy tube #6 jejunostomy tube Patient is resting comfortable in bed this morning Nursing reports that patient is requesting further pain control Peralta had 1200 out, J-tube 13, MARILOU 40 and NG 50 over the last 24 hours Denies any new chest pain, shortness of breath, palpitations, abdominal pain, nausea, vomiting or lower extremity edema Objective PUL Vital signs: Last Vital Signs Temp 98.4 F 03/31/17 03:18 Pulse 108 03/31/17 06:00 Resp 20 03/31/17 06:00 BP 134/60 03/31/17 06:00 Pulse Ox 100 03/31/17 06:00 General appearance: no acute distress Eyes: nonicteric ENT: oropharynx moist, other (NGT present) Neck: supple Effort: normal Auscultation: left: diminished breath sounds (crackles) Cardiovascular: regular rate and rhythm Gastrointestinal: hypoactive bowel sounds, tender (incisional), other (incision c/d/i, no shadowing; MARILOU, GT and JT intact) Integumentary: normal Extremities: no cyanosis, no edema, no clubbing Musculoskeletal: no deformities, ROM normal normal mental status, non-focal exam mood appropriate, affect normal Results - Laboratory Findings CBC and BMP: 03/31/17 04:02 03/31/17 04:02 PT/INR, D-dimer PT 11.5 Seconds (9.4-12.1) 03/25/17 04:21 Abnormal lab findings: Abnormal lab results WBC 11.5 K/mcL (4.3-11.1) H 03/31/17 04:02 RBC 3.57 M/mcL (3.82-4.97) L 03/31/17 04:02 Hgb 9.8 g/dL (11.5-15.4) L 03/31/17 04:02 Hct 32.8 % (35.3-44.9) L 03/31/17 04:02 MCH 27.5 pg (28.0-33.3) L 03/31/17 04:02 MCHC 29.9 g/dL (31.6-35.5) L 03/31/17 04:02 RDW 16.3 % (11.5-14.5) H 03/31/17 04:02 Nucleated RBCs/100 WBC 0.3 /100 WBC (0) H 03/31/17 04:02 APTT 24.4 Seconds (26.0-36.0) L 03/25/17 04:21 VBG pH 7.44 pH Units (7.32-7.42) H 03/28/17 04:28 VBG pO2 119 mmHg (25-50) H 03/28/17 04:19 VBG HCO3 28 mEq/L (21-27) H 03/28/17 04:19 Chloride 112 mEq/L (98-107) H 03/31/17 04:02 BUN 50 mg/dL (8-23) H 03/31/17 04:02 Est GFR (Non-Af Amer) 53 (> 60) L 03/31/17 04:02 BUN/Creatinine Ratio 50 (6-26) H 03/31/17 04:02 Glucose 184 mg/dL (70-105) H 03/31/17 04:02 POC Glucose 154 (58-89) H 03/31/17 03:20 Calculated Osmolality 314 (280-300) H 03/31/17 04:02 Calcium 7.8 mg/dL (8.6-10.3) L 03/31/17 04:02 Troponin I 0.10 ng/mL (< 0.04) H* 03/28/17 04:02 B-Natriuretic Peptide 252 pg/mL (Less than 100) H 03/26/17 10:56 Prealbumin 12.4 mg/dL (17.0-34.0) L 03/27/17 04:27 - Clinical Findings Intake & Output: Intake & Output 03/30/17 03/30/17 03/31/17 15:59 23:59 07:59 Intake Total 900 / 900 1842 / 1842 450 / 450 Output Total 265 / 265 650 / 650 473 / 473 Balance 635 / 635 1192 / 1192 - Weight 75.5 kg - VTE Documentation of Mechanical Device: Intermittent pneumatic compression device
--- NOTE | 2017-03-31 07:37 | General Surgery Progress Note ---
<SonnyRhiannon - Last Filed: 03/31/17 07:47> Date of Encounter: 03/31/17 Time of Encounter: 07:34 - Assessment and Plan (1) Hiatal hernia Current Visit: Yes Status: Acute POD 2 for Paraesophageal hernia with intrathoracic gastric volvulus. Segmental gastric necrosis. Distal esophageal necrosis -s/p #1 reduction of gastric volvulus #2 repair of hiatal hernia #3 debridement and primary repair of distal esophagus #4 resection of gastric necrosis ( tangential resection of full-thickness necrotic ulcers times 4) #5 gastrostomy tube #6 jejunostomy tube -NG tube in place this AM. Do not remove, if falls off, do not replace -MARILOU drain and Gtube re-inspected with Dr. Castillo this AM. Chuy-Altamirano drain remains free of bilious material. -Dressing to abdominal incision in place. -Continue Abx -If pt develops fever, tachycardia, complaint of escalating chest pain, or excess wound drainage, recommend CXR stat -If tolerates, recommend pt sit up in chair (3) Aspiration into respiratory tract Current Visit: Yes Status: Acute s/p aspiration with Gastograffin Qualifiers: Encounter type: subsequent encounter Qualified Code(s): T17.908D - Unspecified foreign body in respiratory tract, part unspecified causing other injury, subsequent encounter (4) New onset atrial fibrillation Current Visit: Yes Status: Acute Sinus rhythm. Cardiology consulted. (5) Severe protein-calorie malnutrition Current Visit: Yes Status: Acute Per primary team. (7) DVT prophylaxis Current Visit: Yes Status: Acute Per protocol. Management per primary team. Subjective Patient reports: no new complaints, afebrile Objective Vital Signs - Last 8 Hours Temp Pulse Resp BP Pulse Ox 03/31/17 07:24 98 03/31/17 06:00 108 20 134/60 100 03/31/17 05:00 98 17 145/80 100 03/31/17 04:01 16 100 03/31/17 04:00 92 20 145/90 99 03/31/17 03:39 90 03/31/17 03:18 98.4 F 03/31/17 03:00 92 14 150/78 99 03/31/17 02:00 93 20 163/77 98 03/31/17 01:00 87 19 141/80 99 03/31/17 00:05 98.0 F 03/31/17 00:00 82 16 129/72 100 03/30/17 23:50 80 Intake and Output 03/30/17 03/30/17 03/31/17 15:59 23:59 07:59 Intake Total 900 / 900 1842 / 1842 450 / 450 Output Total 265 / 265 650 / 650 473 / 473 Balance 635 / 635 1192 / 1192 -23 / -23 Intake: IV Fluids 900 / 900 1842 / 1842 450 / 450 Dextrose 5% 1,000 ML @ 50 mls/ 700 / 700 0 / 0 hr IVC .Q20H [facility] Rx#:[id number] Clinimix E 5%-15% SOLUTION 2, 1642 / 1642 000 ML @ 75 mls/hr IVC .Q24H [facility] with M.v.i. Adult 10 ml Rx# :[id number] Intralipid 20% 250 ML @ 21 mls/ 250 / 250 hr IVPB DAILY@1700 [facility] Rx#: [id number] Zosyn Premix 3.375 GM/200 ML 3. 200 / 200 200 / 200 200 / 200 375 gm In 200 ml @ 50 mls/hr IVPB Q8H [facility] Rx#:[id number] Output: Other 10 3 / 3 Catheter 250 / 250 500 / 500 450 / 450 Gastric Drainage 0 / 0 100 / 100 0 / 0 Wound Drainage 15 / 15 40 / 40 20 / 20 Right Upper Abdomen 15 / 15 40 / 40 20 / 20 Other: Weight 75.5 kg Blood Glucose* 151 141 154 Patient Weight 03/31/17 23:59 Weight 75.5 kg - General physical appearance no distress - Eyes normal ocular movement - Respiratory normal expansion, other (Oxy-mask, no wheezes, no rales. ) - Cardiovascular Cardiovascular exam: Present: regular rhythm Addtional Comments: +S1, S2 - Abdomen Additional Comments: Drains in place. No bilious material seen in Chuy-Altamirano drain - Labs 03/31/17 04:02 03/31/17 04:02 Diabetes panel 03/31/17 Range/Units 04:02 Sodium 143 (136-145) mEq/L Potassium 4.2 (3.5-5.1) mEq/L Chloride 112 H (98-107) mEq/L Carbon Dioxide 26 (23-29) mEq/L BUN 50 H (8-23) mg/dL Creatinine 1.00 (0.60-1.20) mg/dL Glucose 184 H (70-105) mg/dL Calcium 7.8 L (8.6-10.3) mg/dL Calcium panel 03/31/17 Range/Units 04:02 Calcium 7.8 L (8.6-10.3) mg/dL Phosphorus 3.0 (2.7-4.5) mg/dL Pituitary panel 03/31/17 Range/Units 04:02 Sodium 143 (136-145) mEq/L Potassium 4.2 (3.5-5.1) mEq/L Chloride 112 H (98-107) mEq/L Carbon Dioxide 26 (23-29) mEq/L BUN 50 H (8-23) mg/dL Creatinine 1.00 (0.60-1.20) mg/dL Glucose 184 H (70-105) mg/dL Calcium 7.8 L (8.6-10.3) mg/dL Adrenal panel 03/31/17 Range/Units 04:02 Sodium 143 (136-145) mEq/L Potassium 4.2 (3.5-5.1) mEq/L Chloride 112 H (98-107) mEq/L Carbon Dioxide 26 (23-29) mEq/L BUN 50 H (8-23) mg/dL Creatinine 1.00 (0.60-1.20) mg/dL Glucose 184 H (70-105) mg/dL Calcium 7.8 L (8.6-10.3) mg/dL - VTE Documentation of Mechanical Device: Intermittent pneumatic compression device Consult Discharge Plan - Plan Referrals: Memo Cody MD [Primary Care Provider] - <Kayden Castillo - Last Filed: 04/05/17 08:24> Date of Encounter: 03/31/17 Objective Vital Signs - Last 8 Hours Temp Pulse Resp BP Pulse Ox 04/05/17 08:04 16 100 04/05/17 06:43 98.2 F 76 16 127/53 100 04/05/17 05:04 98.4 F 86 18 152/62 98 04/05/17 04:38 18 96 Intake and Output 04/04/17 04/05/17 04/05/17 23:59 07:59 15:59 Intake Total 60 / 60 310 / 310 Output Total 1350 / 1350 1175 / 1175 Balance -1290 / -1290 -865 / -865 Intake: IV Fluids 250 / 250 Intralipid 20% 250 ML @ 21 mls/ 250 / 250 hr IVPB DAILY@1700 [facility] Rx#: [id number] Oral 0 / 0 0 / 0 Free Water Intake Amount 60 / 60 60 / 60 Output: Gastric Tube Lavage Amount 375 / 375 LUQ1 375 / 375 Catheter 1350 / 1350 800 / 800 Urethral (Peralta) 800 / 800 Other: Weight 68.1 kg Blood Glucose* 214 182 Patient Weight 04/05/17 23:59 Weight 68.1 kg - Labs 04/05/17 05:45 04/04/17 06:20 Diabetes panel 04/05/17 Range/Units 05:45 Triglycerides 135 (< 150) mg/dL - Attending Attestation I examined this patient and my medical decision-making was reviewed with the Resident Physician. I agree with the documented findings, disposition and treatment plan as described except to the extent set forth below. The patient was seen and evaluated with the resident on morning rounds. She continues to progress well. There is some concern with tachypnea. There is no evidence of leak from the area of esophageal or gastric repair. Continue maximum supportive care. Kayden Castillo MD FACS
[2017-03-31] MEDS ORDERED: *HR* Morphine 2 MG/ML SYRINGE IVP PRN (07:45)
--- NOTE | 2017-03-31 07:53 | Electrocardiograph Report ---
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
[2017-03-31] MEDS: Budesonide/Formoterol 160/4.5 MDI IH SCH ×3 (07:55→19:44)
[2017-03-31] MEDS: Piperacillin/Tazobactam 3.375 GM/200 ML BAG IVPB SCH ×3 (08:40→23:30)
[2017-03-31] MEDS ORDERED: Potassium Phosphate 44 MEQ in 0.9 % Sodium Chloride 250 ML IVPB PRN (09:43)
[2017-03-31] MEDS ORDERED: Dextrose Gel 15 GM/37.5 ML TUBE PO PRN ×2 (09:43)
[2017-03-31] MEDS ORDERED: Ondansetron 4 MG/2 ML VIAL IVP PRN (09:43)
[2017-03-31] MEDS ORDERED: *HR* Promethazine 25 MG/ML VIAL IVP PRN (09:43)
[2017-03-31] MEDS ORDERED: D10% in Water 500 ML IVC PRN (09:43)
[2017-03-31] MEDS ORDERED: Clinimix E 5%-15% SOLUTION 2,000 ML with MVI, adult with vitamin K 10 ML IVC SCH ×2 (09:43→17:00)
[2017-03-31] MEDS ORDERED: Potassium Chloride 40 MEQ/200 ML BAG IVPB PRN (09:43)
[2017-03-31] MEDS ORDERED: D5% in Water 1,000 ML IVC PRN (09:43)
[2017-03-31] MEDS ORDERED: *HR* Dextrose 50 % in Water (Syg) 50 ML SYRINGE IVP PRN (09:43)
[2017-04-01] MEDS: Ipratropium/Albuterol Neb 3 ML IH SCH ×6 (00:39→20:07)
[2017-04-01] MEDS: *HR* Morphine 2 MG/ML SYRINGE IVP PRN ×2 (03:20→07:34)
[2017-04-01] MEDS: Insulin LISPRO 300 UNITS/3 ML VIAL SQ SCH ×5 (04:56→20:45)
[2017-04-01] MEDS: Pantoprazole 40 MG VIAL IVP SCH ×2 (05:20→17:25)
[2017-04-01] MEDS: *HR* Metoprolol 5 MG/5 ML VIAL IVP SCH ×4 (05:20→23:40)
[2017-04-01] MEDS: *HR* Heparin 5,000 UNIT/ML VIAL SQ SCH ×2 (05:20→17:26)
[2017-04-01 05:40] LABS: Basophils % 0.3 %; Eosinophils # 0.1 K/mcL (0.0-0.6); Eosinophils % 1.3 %; Hematocrit 30.9 % (35.3-44.9); Hemoglobin 9.3 g/dL (11.5-15.4); Immature Granulocytes % 2.7 % (0-4); Lymphocytes # 1.6 K/mcL (0.6-4.6); Lymphocytes % 14.3 %; Mean Corpuscular HGB Conc 30.1 g/dL (31.6-35.5); Mean Corpuscular Hemoglobin 27.4 pg (28.0-33.3); Mean Corpuscular Volume 91.2 fL (83.0-100.0); Mean Platelet Volume 11.3 fL (9.4-12.4); Monocytes # 0.9 K/mcL (0.0-1.3); Monocytes % 8.6 %; Neutrophils # 7.9 K/mcL (1.6-8.9); Nucleated Red Blood Cells 0.3 /100 WBC (0); Platelet Count 144 K/mcL (140-400); Red Blood Count 3.39 M/mcL (3.82-4.97); Red Cell Distribution Width 16.3 % (11.5-14.5); Segmented Neutrophils % 72.8 %
[2017-04-01 06:06] LABS: BUN/Creatinine Ratio 58 (6-26); Blood Urea Nitrogen 38 mg/dL (8-23); Carbon Dioxide 27 mEq/L (23-29); Chloride 113 mEq/L (98-107); Glucose 187 mg/dL (70-105); Magnesium 2.1 mg/dL (1.6-2.6); Osmolality,Calculated 314 (280-300); Phosphorous 2.4 mg/dL (2.7-4.5); Potassium 3.9 mEq/L (3.5-5.1); Sodium 145 mEq/L (136-145); eGFR For African Americans > 60 (> 60); eGFR For Non-African Americans > 60 (> 60)
[2017-04-01] MEDS: Budesonide/Formoterol 160/4.5 MDI IH SCH ×2 (08:00→20:07)
[2017-04-01] MEDS: Piperacillin/Tazobactam 3.375 GM/200 ML BAG IVPB SCH ×2 (08:35→16:06)
--- NOTE | 2017-04-01 09:04 | General Surgery Progress Note ---
<ZacheryAdeline Shannan - Last Filed: 04/01/17 09:07> Date of Encounter: 04/01/17 Time of Encounter: 08:45 - Assessment and Plan (1) DVT (deep venous thrombosis) Current Visit: Yes Status: Acute Date of procedure: 03/29/17 Pre-op diagnosis: Paraesophageal hernia with intrathoracic gastric volvulus Post-op diagnosis: other (Paraesophageal hernia with intrathoracic gastric volvulus. Segmental gastric necrosis. Distal esophageal necrosis) Procedure: #1 reduction of gastric volvulus #2 repair of hiatal hernia #3 debridement and primary repair of distal esophagus #4 resection of gastric necrosis (tangential resection of full-thickness necrotic ulcers times 4) #5 gastrostomy tube #6 jejunostomy tube Anesthesia: SIL Surgeon: Kayden Castillo Estimated blood loss (cc): 200 POD #3 as above. Pathology noted: Stomach, partial gastrectomy: - Focally ulcerated mucosa, acute and chronic inflammation and focal transmural necrosis. - Margins viable. Anne Marie reports her abdominal discomfort is controlled. She was OOB to chair for aprox 5 hours yesterday. Incisions are clean, dry, and intact without surrounding erythema or cellulitis. Her drain sites (detailed below) are unremarkable. Her bowel sounds are absent. She denies passing flatus or having a bowel movement. Left J-tube: clamped. No output noted Peg tube: To gravity. Noted aprox 200 ml output since Midnight. NG: to LIWS. Noted aprox 30 ml of output since Midnight. Drain care: Wash surrounding area with soap and water daily. Cover with a split gauze. Tape to secure. Plan: Await return of bowel function Continue NG to low intermittent wall section. Do not remove until directed by surgery. In case of accidental removal, do not replace. Continue peg tube to gravity. Continue J-tube clamped. TPN and total fluids per primary team PT/OT for mobilization and discharge planning Aggressive pulmonary toileting Continue DVT prophylaxis per primary team Continue Protonix 40 mg BID IV for GI prophylaxis Recommend swallow even now under fluoroscopy prior to initiating any diet given history of aspiration. (2) Hiatal hernia Current Visit: Yes Status: Acute As above (3) Aspiration into respiratory tract Current Visit: Yes Status: Acute Management per primary medicine. Currently pt is on O2 per nasal cannula. Recommendations for swallow eval prior to any initiation of diet. Maintain NPO at this time per surgery Subjective Patient reports: feels better, still having pain, pain is less, voiding w/o difficulty (Per child), no flatus, no bowel movement, afebrile Narrative: Denies fevers, nausea, or shortness of breath. She reports an episode of feeling nauseated earlier this am, but this has resolved. She states her discomfort is managed at this point. She was up in the chair for aprox 5 hours yesterday. Objective Vital Signs - Last 8 Hours Temp Pulse Resp BP Pulse Ox 04/01/17 08:35 98.3 F 04/01/17 08:02 18 94 04/01/17 06:03 85 22 146/70 90 04/01/17 05:02 97.0 F L 04/01/17 04:00 105 16 115/73 90 04/01/17 03:48 18 92 04/01/17 03:30 96 04/01/17 02:00 96 19 143/76 90 Intake and Output 03/31/17 04/01/17 04/01/17 23:59 07:59 15:59 Intake Total 200 / 200 450 / 450 Output Total 336 / 336 863 / 863 390 / 390 Balance -136 / -136 -413 / -413 -390 / -390 Intake: IV Fluids 200 / 200 450 / 450 Intralipid 20% 250 ML @ 21 mls/ 250 / 250 hr IVPB DAILY@1700 [facility] Rx#: [id number] Zosyn Premix 3.375 GM/200 ML 3. 200 / 200 200 / 200 375 gm In 200 ml @ 50 mls/hr IVPB Q8H [facility] Rx#:[id number] Output: Catheter 325 / 325 675 / 675 350 / 350 Gastric Drainage 168 / 168 30 / 30 Wound Drainage Right Upper Abdomen Other: Blood Glucose* 170 138 168 - General physical appearance no distress, no pain (while resting in bed.) - ENT dentures, atraumatic, normocephalic - Neck Neck exam: trachea midline, no venous distension - Respiratory other (Decreased BL breath sounds) - Cardiovascular Cardiovascular exam: Present: RRR, murmurs - Abdomen Abdomen: Present: tender (Expected postoperative), wound (Left MARILOU drain and J- tube site are within normal limits. Peg tube site within normal limits.). Absent: bowel sounds present (ABSENT) - Incision Incision: Present: clean and dry, intact - Integumentary no rash - Neurologic normal sensation - Musculoskeletal normal posture - Psychiatric oriented to time, oriented to person, oriented to place, memory intact - Labs 04/01/17 05:23 04/01/17 05:23 Diabetes panel 04/01/17 Range/Units 05:23 Sodium 145 (136-145) mEq/L Potassium 3.9 (3.5-5.1) mEq/L Chloride 113 H (98-107) mEq/L Carbon Dioxide 27 (23-29) mEq/L BUN 38 H (8-23) mg/dL Creatinine 0.66 (0.60-1.20) mg/dL Glucose 187 H (70-105) mg/dL Calcium 8.0 L (8.6-10.3) mg/dL Calcium panel 04/01/17 Range/Units 05:23 Calcium 8.0 L (8.6-10.3) mg/dL Phosphorus 2.4 L (2.7-4.5) mg/dL Pituitary panel 04/01/17 Range/Units 05:23 Sodium 145 (136-145) mEq/L Potassium 3.9 (3.5-5.1) mEq/L Chloride 113 H (98-107) mEq/L Carbon Dioxide 27 (23-29) mEq/L BUN 38 H (8-23) mg/dL Creatinine 0.66 (0.60-1.20) mg/dL Glucose 187 H (70-105) mg/dL Calcium 8.0 L (8.6-10.3) mg/dL Adrenal panel 04/01/17 Range/Units 05:23 Sodium 145 (136-145) mEq/L Potassium 3.9 (3.5-5.1) mEq/L Chloride 113 H (98-107) mEq/L Carbon Dioxide 27 (23-29) mEq/L BUN 38 H (8-23) mg/dL Creatinine 0.66 (0.60-1.20) mg/dL Glucose 187 H (70-105) mg/dL Calcium 8.0 L (8.6-10.3) mg/dL - VTE Documentation of Mechanical Device: Intermittent pneumatic compression device Consult Discharge Plan - Plan Referrals: Memo Cody MD [Primary Care Provider] - <Kayden Castillo - Last Filed: 04/05/17 08:27> Date of Encounter: 04/01/17 Objective Vital Signs - Last 8 Hours Temp Pulse Resp BP Pulse Ox 04/05/17 08:04 16 100 04/05/17 06:43 98.2 F 76 16 127/53 100 04/05/17 05:04 98.4 F 86 18 152/62 98 04/05/17 04:38 18 96 Intake and Output 04/04/17 04/05/17 04/05/17 23:59 07:59 15:59 Intake Total 60 / 60 310 / 310 Output Total 1350 / 1350 1175 / 1175 Balance -1290 / -1290 -865 / -865 Intake: IV Fluids 250 / 250 Intralipid 20% 250 ML @ 21 mls/ 250 / 250 hr IVPB DAILY@1700 [facility] Rx#: [id number] Oral 0 / 0 0 / 0 Free Water Intake Amount 60 / 60 60 / 60 Output: Gastric Tube Lavage Amount 375 / 375 LUQ1 375 / 375 Catheter 1350 / 1350 800 / 800 Urethral (Child) 800 / 800 Other: Weight 68.1 kg Blood Glucose* 214 182 Patient Weight 04/05/17 23:59 Weight 68.1 kg - Labs 04/05/17 05:45 04/04/17 06:20 Diabetes panel 04/05/17 Range/Units 05:45 Triglycerides 135 (< 150) mg/dL - Attending Attestation I have personally performed a face to face evaluation on this patient. I have reviewed and agree with the care plan. History and Exam by me shows: The patient is seen and evaluated on morning rounds. She continues to progress well in the intensive care unit. She has had no other problems with tachycardia however she has intermittent tachypnea. There is no evidence of leak from the esophageal or gastric repair area we will plan on starting jejunostomy tube feedings. Kayden Castillo MD FACS
--- NOTE | 2017-04-01 09:23 | Internal Med Progress Note ---
Date of Encounter: 04/01/17 Time of Encounter: 09:23 - Assessment and plan (1) Acute respiratory failure with hypoxia Current Visit: Yes Status: Acute Assessment and plan: - Acute respiratory failure with hypoxia secondary to aspiration of Gastrograffin for upper GI series - Pt currently tolerated 2-4L of O2 via NC. Did not require BiPAP overnight - No reported home O2 requirement. - Clinically improving, will continue Zosyn for aspiration - Stable for transfer from ICU when bed becomes available. (2) 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 Current Visit: Yes Status: Acute Assessment and plan: - POD #3 status post #1 reduction of gastric volvulus #2 repair of hiatal hernia #3 debridement and primary repair of distal esophagus #4 resection of gastric necrosis (tangential resection of full-thickness necrotic ulcers times 4 ) #5 gastrostomy tube #6 jejunostomy tube - Management per surgery team - PICC line and TPN -Output: MARILOU 100 and NG 216 over the last 24 hours. NG on intermittent suction - No evidence of mediastinitis over the last 24 hours -Hypoactive bowel sounds. No flatus or BM - Pathology results: folcally ulcerated mucosa, acute on chronic inflammation, transmural necrosis with clear margins. 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 - Patient is hemodynamically stable and appears to be improving - Tolerating 4 liters NC Plan: Continue to decrease O2 requirement as able. Nothing by mouth Zosyn for anaerobic coverage (day 7) Duonbes q4 with symbicort (4) Aspiration into respiratory tract Current Visit: Yes Status: Acute Assessment and plan: - As above. Qualifiers: Encounter type: subsequent encounter Qualified Code(s): T17.908D - Unspecified foreign body in respiratory tract, part unspecified causing other injury, subsequent encounter (5) Tachycardia Current Visit: Yes Status: Acute Assessment and plan: - Noted atrial tachycardia with rates in 120s. - Currently rate controlled at 85 - Per cardiology, start ASA when safe from a surgical perspective. Plan - Continue to monitor - Continue metoprolol 5mg q6hr (6) Hypertension Current Visit: Yes Status: Acute Assessment and plan: - Has been mildly elevated at 146/70 - Continue BB while NPO Qualifiers: Hypertension type: essential hypertension Qualified Code(s): I10 - Essential (primary) hypertension (7) DVT prophylaxis Current Visit: Yes Status: Acute Assessment and plan: - Heparin 5000 units q12hr - Time Spent With Patient 25 - 35 minutes - Subjective Interval history: Patient was seen and examined at bedside this AM. She reports that overall she is doing well with no complaints of CP, SOB, nausea, vomiting, generalized pain. She is not yet having flatus or bowel movements. - Constitutional Vitals: Temp Pulse Resp BP Pulse Ox 98.3 F 85 18 146/70 94 04/01/17 08:35 04/01/17 06:03 04/01/17 08:02 04/01/17 06:03 04/01/17 08:02 Exam: Gen.: Vitals noted. No acute distress. AAOx3 HEENT: PERRL/EOMI, oropharynx clear, Normocephalic, atraumatic, MMM. NG in pace with green drainage. 216 mL documented Cardiac: RRR, no murmur, +S1/S2 Pulmonary: Some wheezing demonstrated bilaterally. equal chest expansion Abdomen: soft, nontender, BS noted, no guarding. Incision clean and dry, no drainage observed. Marilou drain with serosanguinous fluid minimal output. Extremities: no BLE edema, nontender calf, no cyanosis or clubbing Neuro: A&Ox3, moves all extremities, no focal deficits Psych: Appropriate mood and behavior Internal Medicine: Result - Labs CBC & Chem 7: 04/01/17 05:23 04/01/17 05:23 Labs: Short CBC 04/01/17 Range/Units 05:23 WBC 10.9 (4.3-11.1) K/mcL Hgb 9.3 L (11.5-15.4) g/dL Hct 30.9 L (35.3-44.9) % Plt Count 144 (140-400) K/mcL Neutrophils # 7.9 (1.6-8.9) K/mcL BMP 04/01/17 05:23 Sodium 145 Potassium 3.9 Chloride 113 H Carbon Dioxide 27 BUN 38 H Creatinine 0.66 Glucose 187 H Calcium 8.0 L - ABG Interpretation ABG results: PT/INR, D-dimer PT 11.5 Seconds (9.4-12.1) 03/25/17 04:21 - VTE Documentation of Mechanical Device: Intermittent pneumatic compression device Consult Discharge Plan - Plan Referrals: Memo Cody MD [Primary Care Provider] -
[2017-04-01] MEDS: Acetaminophen IV 1,000 MG/100 ML INFUS..BTL IVPB SCH ×3 (11:27→23:41)
[2017-04-01] MEDS: Ketorolac 15 MG/ML VIAL IVP SCH ×3 (11:33→23:40)
[2017-04-01] MEDS: Metoclopramide 10 MG/2 ML VIAL IVP SCH ×3 (11:33→23:40)
[2017-04-01] MEDS ORDERED: Clinimix E 5%-15% SOLUTION 2,000 ML with MVI, adult with vitamin K 10 ML IVC SCH (17:00)
[2017-04-01] MEDS ORDERED: *HR* Heparin 5,000 UNIT/ML VIAL IVP ONE (18:26)
[2017-04-01] MEDS ORDERED: *HR* Heparin 5,000 UNIT/ML VIAL IVP PRN ×2 (18:26)
[2017-04-01] MEDS ORDERED: Heparin 25,000 UNIT/500 ML D5W 25,000 UNIT/500 ML BAG IVC SCH (18:30)
[2017-04-01 19:41] LABS: INR 1.1; Prothrombin Time 11.5 Seconds (9.4-12.1)
[2017-04-01 19:43] LABS: Activated Partial Thrombo Time 24.6 Seconds (26.0-36.0)
--- NOTE | 2017-04-01 19:55 | Event Note ---
Date of Encounter: 04/01/17 Time of Encounter: 11:00 I examined this patient and my medical decision-making was reviewed with the Resident Physician on 04/01/17. I agree with the documented findings, disposition and treatment plan as described except to the extent set forth below. I am unable to sign progress note - error occurs Ms Leach is currently admitted for acute resp failure and volvulus. She remains moderate to high risk due to potential for worsening clinical status. Ms Leach is doing OK. Pain controlled. No fever. Exam alert. Comfortable Mucus membranes dry Heart reg NO wheeze RUE edematous I/P 1. Resp failure 2. Aspiration 3. RUE edema Further diagnoses and plan as per progress note of today.
[2017-04-01 22:00] LABS: Hematocrit 29.8 % (35.3-44.9); Mean Corpuscular HGB Conc 30.2 g/dL (31.6-35.5); Mean Corpuscular Hemoglobin 27.6 pg (28.0-33.3); Mean Corpuscular Volume 91.4 fL (83.0-100.0); Mean Platelet Volume 11.6 fL (9.4-12.4); Platelet Count 167 K/mcL (140-400); Red Blood Count 3.26 M/mcL (3.82-4.97); Red Cell Distribution Width 16.5 % (11.5-14.5)
[2017-04-02] MEDS: Insulin LISPRO 300 UNITS/3 ML VIAL SQ SCH ×6 (00:03→21:47)
[2017-04-02] MEDS: Ipratropium/Albuterol Neb 3 ML IH SCH ×7 (00:11→23:13)
[2017-04-02] MEDS: Piperacillin/Tazobactam 3.375 GM/200 ML BAG IVPB SCH ×2 (01:13→08:43)
[2017-04-02 03:46] LABS: Basophils % 0.3 %; Eosinophils # 0.4 K/mcL (0.0-0.6); Eosinophils % 3.5 %; Hematocrit 29.9 % (35.3-44.9); Hemoglobin 8.9 g/dL (11.5-15.4); Immature Granulocytes % 2.9 % (0-4); Lymphocytes # 1.6 K/mcL (0.6-4.6); Lymphocytes % 13.4 %; Mean Corpuscular HGB Conc 29.8 g/dL (31.6-35.5); Mean Corpuscular Hemoglobin 27.2 pg (28.0-33.3); Mean Corpuscular Volume 91.4 fL (83.0-100.0); Mean Platelet Volume 11.3 fL (9.4-12.4); Monocytes # 0.9 K/mcL (0.0-1.3); Monocytes % 7.6 %; Neutrophils # 8.6 K/mcL (1.6-8.9); Nucleated Red Blood Cells 0.2 /100 WBC (0); Platelet Count 178 K/mcL (140-400); Red Blood Count 3.27 M/mcL (3.82-4.97); Red Cell Distribution Width 16.5 % (11.5-14.5); Segmented Neutrophils % 72.3 %
[2017-04-02] MEDS: D5% in Water 1,000 ML IVC SCH ×2 (03:50→22:41)
[2017-04-02 04:06] LABS: Activated Partial Thrombo Time 117.7 Seconds (26.0-36.0)
[2017-04-02 04:15] LABS: BUN/Creatinine Ratio 56 (6-26); Blood Urea Nitrogen 39 mg/dL (8-23); Carbon Dioxide 27 mEq/L (23-29); Chloride 113 mEq/L (98-107); Glucose 184 mg/dL (70-105); Magnesium 2.2 mg/dL (1.6-2.6); Osmolality,Calculated 312 (280-300); Phosphorous 3.5 mg/dL (2.7-4.5); Potassium 4.2 mEq/L (3.5-5.1); Sodium 144 mEq/L (136-145); eGFR For African Americans > 60 (> 60); eGFR For Non-African Americans > 60 (> 60)
[2017-04-02] MEDS: Ketorolac 15 MG/ML VIAL IVP SCH ×3 (04:53→17:16)
[2017-04-02] MEDS: Pantoprazole 40 MG VIAL IVP SCH ×2 (04:53→17:16)
[2017-04-02] MEDS: Acetaminophen IV 1,000 MG/100 ML INFUS..BTL IVPB SCH ×4 (04:54→22:50)
[2017-04-02] MEDS: *HR* Metoprolol 5 MG/5 ML VIAL IVP SCH ×3 (04:54→17:16)
[2017-04-02] MEDS: Metoclopramide 10 MG/2 ML VIAL IVP SCH ×3 (04:54→17:16)
[2017-04-02] MEDS: Saliva Stimulant 100ml BOTTLE PO PRN (08:00)
[2017-04-02] MEDS: Budesonide/Formoterol 160/4.5 MDI IH SCH ×2 (08:32→21:57)
[2017-04-02] MEDS ORDERED: Furosemide 40 MG/4 ML VIAL IVP ONE (09:43)
--- NOTE | 2017-04-02 14:23 | General Surgery Progress Note ---
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 No output overnight. Do not remove, if falls off, do not replace -J-tube: J-tube and Gtube re-inspected with Dr. Castillo this AM. J-tube: 25 cc/hr feeds (the red one) Abx d/c'd. (2) Atelectasis Current Visit: Yes Status: Acute Decreased lung aeration on L side. CXR image and report reviewed Management per primary. (3) Aspiration into respiratory tract Current Visit: Yes Status: Acute s/p aspiration with Gastograffin Qualifiers: Encounter type: subsequent encounter Qualified Code(s): T17.908D - Unspecified foreign body in respiratory tract, part unspecified causing other injury, subsequent encounter (4) New onset atrial fibrillation Current Visit: Yes Status: Acute Cardiology consulted. (5) Severe protein-calorie malnutrition Current Visit: Yes Status: Acute Per primary team. (6) DVT (deep venous thrombosis) Current Visit: Yes Status: Acute Pt. Positive for DVT in the Right Upper Extremity in the Brachial Vein and Positive for SVT in the Left Upper Extremity Cephalic Vein. Management per primary team. Qualifiers: DVT location: upper extremity Affected thrombotic vein of extremity: brachial Chronicity: acute Laterality: right Qualified Code(s): I82.621 - Acute embolism and thrombosis of deep veins of right upper extremity (7) DVT prophylaxis Current Visit: Yes Status: Acute Management per primary. Subjective Patient reports: no new complaints, still having pain, afebrile Objective Vital Signs - Last 8 Hours Temp Pulse Resp BP Pulse Ox 04/02/17 13:59 89 22 153/69 93 04/02/17 12:04 97.5 F L 04/02/17 12:00 105 20 180/84 92 04/02/17 11:53 16 90 01/26/18 08:35 16 94 04/02/17 08:00 97.6 F 79 18 163/95 95 Intake and Output 04/01/17 04/02/17 04/02/17 23:59 07:59 15:59 Intake Total 2610 / 2610 703 / 703 Output Total 625 / 625 448 / 448 889 / 889 Balance 1984 255 / 255 -889 / -889 Intake: IV Fluids 2610 / 2610 703 / 703 Heparin 25,000 UNIT/500 ML D5W 153 / 153 25,000 unit In 500 ml @ 14 UNIT /KG/HR 21.308 mls/hr IVC . [id number] [facility] Rx#:[id number] Clinimix E 5%-15% SOLUTION , 2009 000 ML @ 75 mls/hr IVC .Q24H [facility] with M.v.i. Adult 10 ml Rx# :[id number] Ofirmev 1,000 mg/100 ml 1,000 200 / 200 100 / 100 mg In 100 ml @ 400 mls/hr IVPB Q6H [facility] Rx#:[id number] Intralipid 20% 250 ML @ 21 mls/ 250 / 250 hr IVPB DAILY@1700 [facility] Rx#: [id number] Zosyn Premix 3.375 GM/200 ML 3. 400 / 400 200 / 200 375 gm In 200 ml @ 50 mls/hr IVPB Q8H [facility] Rx#:[id number] Oral 0 / 0 0 / 0 Tube Feeding 0 / 0 Free Water 0 / 0 Output: Gastric Tube Lavage Amount 135 / 135 3 / 3 4 / 4 LUQ1 10 / 10 3 / 3 4 / 4 LUQ2 0 / 0 0 / 0 0 / 0 Right Nare 125 / 125 0 / 0 0 / 0 Catheter 450 / 450 425 / 425 875 / 875 Wound Drainage 40 / 40 20 / 20 10 / 10 Left Upper Abdomen 40 / 40 20 / 20 10 / 10 Other: Percent of Meal Consumed 15% Weight 75.4 kg Blood Glucose* 166 168 172 - General physical appearance no distress - Eyes normal ocular movement - Respiratory other (Decreased lung ausculation on L, comparatively to R) - Cardiovascular Addtional Comments: +S1, S2. Regular rate on examination. - Abdomen Abdomen: Present: bowel sounds present, soft, non tender - Incision Incision: Present: intact (lizandro in tact. Tube connections stable. ) - Labs 04/02/17 03:27 04/02/17 03:27 Diabetes panel 04/02/17 Range/Units 03:27 Sodium 144 (136-145) mEq/L Potassium 4.2 (3.5-5.1) mEq/L Chloride 113 H (98-107) mEq/L Carbon Dioxide 27 (23-29) mEq/L BUN 39 H (8-23) mg/dL Creatinine 0.70 (0.60-1.20) mg/dL Glucose 184 H (70-105) mg/dL Calcium 8.0 L (8.6-10.3) mg/dL Calcium panel 04/02/17 Range/Units 03:27 Calcium 8.0 L (8.6-10.3) mg/dL Phosphorus 3.5 (2.7-4.5) mg/dL Pituitary panel 04/02/17 Range/Units 03:27 Sodium 144 (136-145) mEq/L Potassium 4.2 (3.5-5.1) mEq/L Chloride 113 H (98-107) mEq/L Carbon Dioxide 27 (23-29) mEq/L BUN 39 H (8-23) mg/dL Creatinine 0.70 (0.60-1.20) mg/dL Glucose 184 H (70-105) mg/dL Calcium 8.0 L (8.6-10.3) mg/dL Adrenal panel 04/02/17 Range/Units 03:27 Sodium 144 (136-145) mEq/L Potassium 4.2 (3.5-5.1) mEq/L Chloride 113 H (98-107) mEq/L Carbon Dioxide 27 (23-29) mEq/L BUN 39 H (8-23) mg/dL Creatinine 0.70 (0.60-1.20) mg/dL Glucose 184 H (70-105) mg/dL Calcium 8.0 L (8.6-10.3) mg/dL - VTE Documentation of Mechanical Device: Intermittent pneumatic compression device Consult Discharge Plan - Plan Referrals: Memo Cody MD [Primary Care Provider] -
[2017-04-02] MEDS: Furosemide 40 MG/4 ML VIAL IVP SCH (16:47)
[2017-04-02] MEDS ORDERED: Clinimix E 5%-15% SOLUTION 2,000 ML with MVI, adult with vitamin K 10 ML IVC SCH (17:00)
[2017-04-02] MEDS: *HR* Enoxaparin 80 MG/0.8 ML SYRINGE SQ SCH (17:17)
--- NOTE | 2017-04-02 18:54 | Internal Med Progress Note ---
<Hood Valle - Last Filed: 04/02/17 19:24> Date of Encounter: 04/02/17 Time of Encounter: 08:20 - Assessment and plan (1) Acute respiratory failure with hypoxia Current Visit: Yes Status: Acute Assessment and plan: - Acute respiratory failure with hypoxia secondary to aspiration of Gastrograffin for upper GI series - Chest x-ray this morning revealed large left pleural effusion. Ultrasound at bedside not appear to be enough fluid collection for thoracentesis - Pt currently tolerated 2-4L of O2 via NC. Did not require BiPAP overnight - No reported home O2 requirement. Plan - Clinically improving, will continue Zosyn for aspiration - Given Lasix 40 mg IV twice a day for volume overload - Encouraged incentive spirometry. Patient had balance understanding - Stable for transfer from ICU when bed becomes available. 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 NG on intermittent suction - No evidence of mediastinitis over the last 24 hours -Hypoactive bowel sounds. No flatus or BM - Pathology results: folcally ulcerated mucosa, acute on chronic inflammation, transmural necrosis with clear margins. 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 - Patient is hemodynamically stable and appears to be improving - Tolerating 4 liters NC Plan: Continue to decrease O2 requirement as able. Nothing by mouth Zosyn for anaerobic coverage (day 8), will discontinue after today Duonbes q4 with symbicort (4) Aspiration into respiratory tract Current Visit: Yes Status: Acute Assessment and plan: - As above. Qualifiers: Encounter type: subsequent encounter Qualified Code(s): T17.908D - Unspecified foreign body in respiratory tract, part unspecified causing other injury, subsequent encounter (5) Tachycardia Current Visit: Yes Status: Acute Assessment and plan: - Noted atrial tachycardia with rates in 120s. - Currently rate controlled at 89 - Per cardiology, start ASA when safe from a surgical perspective. Plan - Continue to monitor - Continue metoprolol 5mg q6hr (6) Hypertension Current Visit: Yes Status: Acute Assessment and plan: - Has been mildly elevated at 153/69 - Continue BB while NPO Qualifiers: Hypertension type: essential hypertension Qualified Code(s): I10 - Essential (primary) hypertension (7) DVT (deep venous thrombosis) Current Visit: Yes Status: Acute Assessment and plan: - DVT as demonstrated on ultrasound in right upper extremity , brachial - PICC line in place, noted flow around clot - Discussed with PICC team, recommended keep PICC line in place as there is flow around and left UE has superficial venous thrombosis and high chance of DVT - Discussed anticoagulation and we will start lovenox 80 mg BID - No symptoms, swelling measured at 32 cm, +3 cm from baseline done at PICC line placement. Qualifiers: DVT location: upper extremity Affected thrombotic vein of extremity: brachial Chronicity: acute Laterality: right Qualified Code(s): I82.621 - Acute embolism and thrombosis of deep veins of right upper extremity (8) DVT prophylaxis Current Visit: Yes Status: Acute Assessment and plan: - Lovenox for DVT as above - Subjective Interval history: Patient was seen and examined at bedside this AM. She reports that overall she is doing well with no complaints of CP, nausea, vomiting, generalized pain. She is not yet having flatus or bowel movements. She does complain of increased shortness of breath this morning that is present at rest. Oxygen saturation within normal limits. - Constitutional Vitals: Temp Pulse Resp BP Pulse Ox 97.6 F 89 20 153/69 94 04/02/17 16:00 04/02/17 13:59 04/02/17 15:35 04/02/17 13:59 04/02/17 15:35 Exam: Gen.: Vitals noted. No acute distress. AAOx3. Cachectic, elderly female resting in bed comfortably. Noticeably short of breath HEENT: PERRL/EOMI, oropharynx clear, Normocephalic, atraumatic Cardiac: RRR, no murmur, +S1/S2 Pulmonary: Diminished breath sounds on left lower, mild wheezes on the right. equal chest expansion Abdomen: soft, nontender, BS noted, no guarding MSK: ROM intact, no joint swelling noted Extremities: Right upper extremity noticeably swollen, measured 3 cm increased from baseline when PICC line was placed. no BLE edema, nontender calf, no cyanosis or clubbing Neuro: A&Ox3, moves all extremities, no focal deficits Psych: Appropriate mood and behavior Internal Medicine: Result - Labs CBC & Chem 7: 04/02/17 03:27 04/02/17 03:27 Labs: Short CBC 04/01/17 04/02/17 Range/Units 21:00 03:27 WBC 11.4 H 11.9 H (4.3-11.1) K/mcL Hgb 9.0 L 8.9 L (11.5-15.4) g/dL Hct 29.8 L 29.9 L (35.3-44.9) % Plt Count 167 178 (140-400) K/mcL Neutrophils # 8.6 (1.6-8.9) K/mcL BMP 04/02/17 03:27 Sodium 144 Potassium 4.2 Chloride 113 H Carbon Dioxide 27 BUN 39 H Creatinine 0.70 Glucose 184 H Calcium 8.0 L - ABG Interpretation ABG results: PT/INR, D-dimer PT 11.5 Seconds (9.4-12.1) 04/01/17 19:25 - Impressions Impressions Chest X-Ray 04/02/17 08:47 IMPRESSION: 1. Worsening left basilar lung infiltrate, likely related to pleural effusion with associated atelectasis. Superimposed pneumonia cannot be excluded. 2. Small right pleural effusion with associated right basilar atelectasis, stable. 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 Current Visit: Yes Status: Acute (3) DVT (deep venous thrombosis) Current Visit: Yes Status: Acute Qualifiers: DVT location: upper extremity Affected thrombotic vein of extremity: brachial Chronicity: acute Laterality: right Qualified Code(s): I82.621 - Acute embolism and thrombosis of deep veins of right upper extremity (4) Hiatal hernia Current Visit: Yes Status: Acute (5) Aspiration into respiratory tract Current Visit: Yes Status: Acute Qualifiers: Encounter type: subsequent encounter Qualified Code(s): T17.908D - Unspecified foreign body in respiratory tract, part unspecified causing other injury, subsequent encounter (6) Hypertension Current Visit: Yes Status: Acute Qualifiers: Hypertension type: essential hypertension Qualified Code(s): I10 - Essential (primary) hypertension - Constitutional Vitals: Temp Pulse Resp BP Pulse Ox 97.6 F 89 20 153/69 94 04/02/17 16:00 04/02/17 13:59 04/02/17 15:35 04/02/17 13:59 04/02/17 15:35 Internal Medicine: Result - Labs CBC & Chem 7: 04/03/17 03:33 04/03/17 03:33 Labs: Short CBC 04/01/17 04/02/17 Range/Units 21:00 03:27 WBC 11.4 H 11.9 H (4.3-11.1) K/mcL Hgb 9.0 L 8.9 L (11.5-15.4) g/dL Hct 29.8 L 29.9 L (35.3-44.9) % Plt Count 167 178 (140-400) K/mcL Neutrophils # 8.6 (1.6-8.9) K/mcL BMP 04/02/17 03:27 Sodium 144 Potassium 4.2 Chloride 113 H Carbon Dioxide 27 BUN 39 H Creatinine 0.70 Glucose 184 H Calcium 8.0 L - ABG Interpretation ABG results: PT/INR, D-dimer PT 11.5 Seconds (9.4-12.1) 04/01/17 19:25 - Impressions Impressions Chest X-Ray 04/02/17 08:47 IMPRESSION: 1. Worsening left basilar lung infiltrate, likely related to pleural effusion with associated atelectasis. Superimposed pneumonia cannot be excluded. 2. Small right pleural effusion with associated right basilar atelectasis, stable. D/ /02/2017 09:22:37 [facility] Interpreting Provider: Clement Palm MD - Attending Attestation I examined this patient and my medical decision-making was reviewed with the Resident Physician on 04/02/17. I agree with the documented findings, disposition and treatment plan as described except to the extent set forth below. Ms Leach is currently admitted for acute gastric volvulus s/p repair and aspiration. She has DVT R arm. She remains moderate to high risk duet to potential for worsening clinical status. Ms Leach is feeling dyspneic. CXR shows large pleural effusion. No fever. Exam Alert. Comfortable Heart reg Decreased breath sounds on L Abd soft I/P 1. Hypoxia 2. Pleural effusion 3. DVT R arm Further diagnoses and plan as above.
[2017-04-03] MEDS: Insulin LISPRO 300 UNITS/3 ML VIAL SQ SCH ×6 (00:08→23:56)
[2017-04-03] MEDS: *HR* Metoprolol 5 MG/5 ML VIAL IVP SCH ×5 (00:08→23:48)
[2017-04-03] MEDS: Metoclopramide 10 MG/2 ML VIAL IVP SCH ×5 (00:08→23:53)
[2017-04-03] MEDS: Acetaminophen IV 1,000 MG/100 ML INFUS..BTL IVPB SCH ×2 (00:17→05:59)
[2017-04-03] MEDS: Ketorolac 15 MG/ML VIAL IVP SCH ×3 (00:27→13:35)
[2017-04-03] MEDS: Ipratropium/Albuterol Neb 3 ML IH SCH ×6 (03:16→23:00)
[2017-04-03 03:52] LABS: Hematocrit 29.2 % (35.3-44.9); Hemoglobin 8.9 g/dL (11.5-15.4); Mean Corpuscular HGB Conc 30.5 g/dL (31.6-35.5); Mean Corpuscular Hemoglobin 27.3 pg (28.0-33.3); Mean Corpuscular Volume 89.6 fL (83.0-100.0); Mean Platelet Volume 11.4 fL (9.4-12.4); Platelet Count 232 K/mcL (140-400); Red Blood Count 3.26 M/mcL (3.82-4.97); Red Cell Distribution Width 16.4 % (11.5-14.5)
[2017-04-03 04:19] LABS: BUN/Creatinine Ratio 58 (6-26); Blood Urea Nitrogen 42 mg/dL (8-23); Calcium 8.2 mg/dL (8.6-10.3); Carbon Dioxide 29 mEq/L (23-29); Chloride 111 mEq/L (98-107); Glucose 188 mg/dL (70-105); Magnesium 2.1 mg/dL (1.6-2.6); Osmolality,Calculated 313 (280-300); Phosphorous 3.4 mg/dL (2.7-4.5); Sodium 144 mEq/L (136-145); eGFR For African Americans > 60 (> 60); eGFR For Non-African Americans > 60 (> 60)
--- NOTE | 2017-04-03 04:43 | General Surgery Progress Note ---
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 -NG: NG tube to child. Appropriate co Do not remove, if falls off, do not replace -J-tube: Maintain 25 cc/hr feeds (the red one). -Do not advance feeds MARILOU drain: serosanguinous -Nurse involved with care and appreciate co-management Continue PT/OT Ambulate with assistance, encourage deep breathing (2) Atelectasis Current Visit: Yes Status: Acute Decreased lung aeration on L side yesterday. 04/02 CXR image and report reviewed Encourage incentive spirometry use Management per primary. (3) Aspiration into respiratory tract Current Visit: Yes Status: Acute s/p aspiration with Gastograffin Maintain head of Bed at 30 degrees Qualifiers: Encounter type: subsequent encounter Qualified Code(s): T17.908D - Unspecified foreign body in respiratory tract, part unspecified causing other injury, subsequent encounter (4) New onset atrial fibrillation Current Visit: Yes Status: Acute Cardiology consulted. (5) Severe protein-calorie malnutrition Current Visit: Yes Status: Acute Per primary team. (6) DVT (deep venous thrombosis) Current Visit: Yes Status: Acute Pt. Positive for DVT in the Right Upper Extremity in the Brachial Vein and Positive for SVT in the Left Upper Extremity Cephalic Vein. Management per primary team. Qualifiers: DVT location: upper extremity Affected thrombotic vein of extremity: brachial Chronicity: acute Laterality: right Qualified Code(s): I82.621 - Acute embolism and thrombosis of deep veins of right upper extremity (7) DVT prophylaxis Current Visit: Yes Status: Acute Management per primary. Subjective Patient reports: no new complaints, feels better, shortness of breath Narrative: No acute events overnight. Pt completing physical therapy during visit. Complains that she "feels like I can't catch enough breath", while maintaining appropriate O2 sats. Objective Vital Signs - Last 8 Hours Temp Pulse Resp BP Pulse Ox 04/03/17 03:16 16 96 04/03/17 01:04 98.2 F 110 23 132/57 97 04/03/17 00:35 21 132/59 99 04/02/17 23:13 18 92 04/02/17 21:57 16 90 04/02/17 21:49 97.9 F 96 20 155/65 89 Intake and Output 04/02/17 04/02/17 04/03/17 15:59 23:59 07:59 Intake Total 100 / 100 427 / 427 Output Total 889 / 889 1572 / 1572 Balance -789 / -789 -1145 / -1145 Intake: IV Fluids 100 / 100 100 / 100 Ofirmev 1,000 mg/100 ml 1,000 100 / 100 100 / 100 mg In 100 ml @ 400 mls/hr IVPB Q6H [facility] Rx#:[id number] Oral 0 / 0 Tube Feeding 147 / 147 Free Water 60 / 60 Free Water Intake Amount 120 / 120 Output: Gastric Tube Lavage Amount 4 / 4 2 / 2 LUQ1 4 / 4 2 / 2 LUQ2 0 / 0 0 / 0 Right Nare 0 / 0 0 / 0 Catheter 875 / 875 1500 / 1500 Gastric Drainage 60 / 60 Wound Drainage 10 10 / 10 Left Upper Abdomen 10 10 10 Other: Weight 74.1 kg Blood Glucose* 172 154 149 - General physical appearance no distress - Eyes normal ocular movement - ENT Other (NG tube in place) - Respiratory normal expansion, other (symmetric expansion. Coarse breath sounds at bases. ) - Cardiovascular Cardiovascular exam: Present: regular rhythm, no murmurs/rubs/gallops - Abdomen Abdomen: Present: bowel sounds present, soft, non tender - Incision Incision: Present: draining (MARILOU drain serosangenous ) - Labs 04/03/17 03:33 04/03/17 03:33 Diabetes panel 04/03/17 Range/Units 03:33 Sodium 144 (136-145) mEq/L Potassium 4.0 (3.5-5.1) mEq/L Chloride 111 H (98-107) mEq/L Carbon Dioxide 29 (23-29) mEq/L BUN 42 H (8-23) mg/dL Creatinine 0.73 (0.60-1.20) mg/dL Glucose 188 H (70-105) mg/dL Calcium 8.2 L (8.6-10.3) mg/dL Calcium panel 04/03/17 Range/Units 03:33 Calcium 8.2 L (8.6-10.3) mg/dL Phosphorus 3.4 (2.7-4.5) mg/dL Pituitary panel 04/03/17 Range/Units 03:33 Sodium 144 (136-145) mEq/L Potassium 4.0 (3.5-5.1) mEq/L Chloride 111 H (98-107) mEq/L Carbon Dioxide 29 (23-29) mEq/L BUN 42 H (8-23) mg/dL Creatinine 0.73 (0.60-1.20) mg/dL Glucose 188 H (70-105) mg/dL Calcium 8.2 L (8.6-10.3) mg/dL Adrenal panel 04/03/17 Range/Units 03:33 Sodium 144 (136-145) mEq/L Potassium 4.0 (3.5-5.1) mEq/L Chloride 111 H (98-107) mEq/L Carbon Dioxide 29 (23-29) mEq/L BUN 42 H (8-23) mg/dL Creatinine 0.73 (0.60-1.20) mg/dL Glucose 188 H (70-105) mg/dL Calcium 8.2 L (8.6-10.3) mg/dL - VTE Documentation of Mechanical Device: Intermittent pneumatic compression device Consult Discharge Plan - Plan Referrals: Memo Cody MD [Primary Care Provider] - <Serena García - Last Filed: 04/03/17 13:52> Date of Encounter: 04/03/17 - Assessment and Plan (1) History of repair of hiatal hernia Current Visit: Yes Status: Acute patient is s/p reduction gastric volvulous, hiatal hernia repair, debridement and repair necrotic esophagus and stomach, Neri fundoplication, Gtube, Jtube patient is tolerating tube feeds through Jtube no nausea some flatus, no bm - will give dulcolax suppository x 1 incision D/C/I (2) DVT (deep venous thrombosis) Current Visit: Yes Status: Acute Qualifiers: DVT location: upper extremity Affected thrombotic vein of extremity: brachial Chronicity: acute Laterality: right Qualified Code(s): I82.621 - Acute embolism and thrombosis of deep veins of right upper extremity (3) Severe protein-calorie malnutrition Current Visit: Yes Status: Acute continue TPN continue Jtube feeds at 25cc/hr do not advance (4) Leukocytosis Current Visit: Yes Status: Acute increase wbc, primary team is getting CTA chest for SOB, will see results, potential pneumonia after aspiration last week trend cxr yesterday - IMPRESSION: 1. Worsening left basilar lung infiltrate, likely related to pleural effusion with associated atelectasis. Superimposed pneumonia cannot be excluded. Qualifiers: Leukocytosis type: unspecified Qualified Code(s): D72.829 - Elevated white blood cell count, unspecified Subjective Narrative: patient states feeling well, no new complaints other that she is "Just always exhausted". She is passing flatus but no bm no nausea is in chair working with PT Objective Vital Signs - Last 8 Hours Temp Pulse Resp BP Pulse Ox 04/03/17 11:20 16 98 04/03/17 08:35 93 04/03/17 07:52 16 98 04/03/17 06:31 98.6 F 79 16 158/77 98 Intake and Output 04/02/17 04/03/17 04/03/17 23:59 07:59 15:59 Intake Total 427 / 427 160 / 160 0 / 0 Output Total 1572 / 1572 619 / 619 750 / 750 Balance -1145 / -1145 -459 / -459 -750 / -750 Intake: IV Fluids 100 / 100 100 / 100 Ofirmev 1,000 mg/100 ml 1,000 100 / 100 100 / 100 mg In 100 ml @ 400 mls/hr IVPB Q6H [facility] Rx#:[id number] Oral 0 / 0 0 / 0 0 / 0 Tube Feeding 147 / 147 Free Water 60 / 60 Free Water Intake Amount 120 / 120 60 / 60 Output: Gastric Tube Lavage Amount 2 / 2 100 / 100 0 / 0 LUQ1 2 / 2 0 / 0 0 / 0 LUQ2 0 / 0 0 / 0 0 / 0 Right Nare 0 / 0 100 / 100 Catheter 1500 / 1500 500 / 500 750 / 750 Gastric Drainage 60 / 60 Wound Drainage 10 / 10 19 / 19 Left Upper Abdomen Other: Meal NPO Percent of Meal Consumed 0% Weight 74.1 kg 70 kg Blood Glucose* 154 205 151 Patient Weight 04/03/17 23:59 Weight 70 kg - General physical appearance no distress - Eyes PERRL, normal ocular movement - ENT normal mucosa, normocephalic - Neck Neck exam: trachea midline - Respiratory normal expansion crackles: bilateral - Cardiovascular Cardiovascular exam: Present: RRR - Abdomen Abdomen: Present: bowel sounds present, soft, tender (appropriate post op tenderness) - Incision Incision: Present: clean and dry, intact - Integumentary no rash, no growths - Neurologic CN 2-12 grossly intact - Musculoskeletal normal posture, other (no edema bilateral lower legs) - Psychiatric oriented to time, oriented to person, oriented to place, speech is normal, memory intact - Additional Exam MARILOU drain serosang gtube - billious J-tube - tube feeds (tolerating at 25cc/hr) child - clear yellow urine - Labs 04/03/17 03:33 04/03/17 03:33 Diabetes panel 04/03/17 Range/Units 03:33 Sodium 144 (136-145) mEq/L Potassium 4.0 (3.5-5.1) mEq/L Chloride 111 H (98-107) mEq/L Carbon Dioxide 29 (23-29) mEq/L BUN 42 H (8-23) mg/dL Creatinine 0.73 (0.60-1.20) mg/dL Glucose 188 H (70-105) mg/dL Calcium 8.2 L (8.6-10.3) mg/dL Calcium panel 04/03/17 Range/Units 03:33 Calcium 8.2 L (8.6-10.3) mg/dL Phosphorus 3.4 (2.7-4.5) mg/dL Pituitary panel 04/03/17 Range/Units 03:33 Sodium 144 (136-145) mEq/L Potassium 4.0 (3.5-5.1) mEq/L Chloride 111 H (98-107) mEq/L Carbon Dioxide 29 (23-29) mEq/L BUN 42 H (8-23) mg/dL Creatinine 0.73 (0.60-1.20) mg/dL Glucose 188 H (70-105) mg/dL Calcium 8.2 L (8.6-10.3) mg/dL Adrenal panel 04/03/17 Range/Units 03:33 Sodium 144 (136-145) mEq/L Potassium 4.0 (3.5-5.1) mEq/L Chloride 111 H (98-107) mEq/L Carbon Dioxide 29 (23-29) mEq/L BUN 42 H (8-23) mg/dL Creatinine 0.73 (0.60-1.20) mg/dL Glucose 188 H (70-105) mg/dL Calcium 8.2 L (8.6-10.3) mg/dL - Attending Attestation I examined this patient and my medical decision-making was reviewed with the Resident Physician. I agree with the documented findings, disposition and treatment plan as described except to the extent set forth below.
[2017-04-03] MEDS: Pantoprazole 40 MG VIAL IVP SCH ×2 (05:25→17:21)
[2017-04-03] MEDS: *HR* Enoxaparin 80 MG/0.8 ML SYRINGE SQ SCH ×2 (05:27→17:21)
[2017-04-03] MEDS: Budesonide/Formoterol 160/4.5 MDI IH SCH ×2 (07:54→20:31)
[2017-04-03] MEDS: Furosemide 40 MG/4 ML VIAL IVP SCH ×2 (08:19→17:22)
--- NOTE | 2017-04-03 09:26 | Internal Med Progress Note ---
Date of Encounter: 04/03/17 Time of Encounter: 09:00 - Assessment and plan (1) Acute respiratory failure with hypoxia Current Visit: Yes Status: Acute Assessment and plan: - Acute respiratory failure with hypoxia secondary to aspiration of Gastrograffin for upper GI series - Chest x-ray revealed large left pleural effusion. Ultrasound at bedside not appear to be enough fluid collection for thoracentesis - Pt currently tolerated 2-4L of O2 via NC. - No reported home O2 requirement. - Feels clinically dyspneic though not more hypoxic Plan - Though the risk of PE from upper extremity DVT is low will get CTA of chest due to persistent dyspnea. Doubt PE will be present but will see amount of fluid as well. - Continue oxygen supplementation. Increase activity. 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 - Patient is hemodynamically stable and appears to be improving - Tolerating 4 liters NC Plan: Continue to decrease O2 requirement as able. Nothing by mouth Zosyn stopped yesterday as completed more than 7 days Duonbes q4 with symbicort CTA today for further eval. (3) DVT (deep venous thrombosis) Current Visit: Yes Status: Acute Assessment and plan: Currently on Lovenox BID. Will need to transition to PO med when no further procedures planned. Qualifiers: DVT location: upper extremity Affected thrombotic vein of extremity: brachial Chronicity: acute Laterality: right Qualified Code(s): I82.621 - Acute embolism and thrombosis of deep veins of right upper extremity (4) Hiatal hernia Current Visit: Yes Status: Acute Assessment and plan: s/p surgery (5) Aspiration into respiratory tract Current Visit: Yes Status: Acute Assessment and plan: - As above. Qualifiers: Encounter type: subsequent encounter Qualified Code(s): T17.908D - Unspecified foreign body in respiratory tract, part unspecified causing other injury, subsequent encounter (6) Hypertension Current Visit: Yes Status: Acute Assessment and plan: - Has been mildly elevated at 158/77 - Continue BB while NPO May need to add additional agent. Qualifiers: Hypertension type: essential hypertension Qualified Code(s): I10 - Essential (primary) hypertension (7) Severe protein-calorie malnutrition Current Visit: Yes Status: Chronic Assessment and plan: Currently on TPN - Subjective Interval history: Ms Leach is currently admitted for paraesophageal hernia with gastric voluvulus s/p repair. She remains moderate to high risk due to potential for worsening clinical status. Ms Leach is feeling very dyspneic at times. Says she "just can't get her breath." She is very fatigued. Passing gas. Has not gotten up much. Has PT today. Pain is controlled. No fever. No issues with R arm at this time. L chest ultrasounded at bedside yesterday and did not feel enough fluid to do thoracentesis. - Constitutional Vitals: Temp Pulse Resp BP Pulse Ox 98.6 F 79 16 158/77 93 04/03/17 06:31 04/03/17 06:31 04/03/17 07:52 04/03/17 06:31 04/03/17 08:35 General appearance: Present: A&O X 3, answers questions appropriately - Head Head exam: Present: atraumatic, normocephalic - Eye Eye exam: Present: EOMI, conjuntiva pink - ENT ENT exam: Present: mucous membranes dry - Respiratory Respiratory exam: Present: decreased breath sounds, wheezes. Absent: rales, rhonchi Additional comments: Scant wheeze on L - Cardiovascular Cardiovascular exam: Present: RRR, tachycardia - GI/Abdominal GI/Abdominal exam: Present: soft - Extremities Exam Extremities exam: Present: warm. Absent: tenderness Additional comments: Some edema noted. - Neurological Exam Neurological exam: Present: alert, oriented X3 - Skin Skin exam: Present: dry, warm. Absent: rash Internal Medicine: Result - Labs CBC & Chem 7: 04/03/17 03:33 04/03/17 03:33 Labs: Short CBC 04/03/17 Range/Units 03:33 WBC 13.1 H (4.3-11.1) K/mcL Hgb 8.9 L (11.5-15.4) g/dL Hct 29.2 L (35.3-44.9) % Plt Count 232 (140-400) K/mcL BMP 04/03/17 03:33 Sodium 144 Potassium 4.0 Chloride 111 H Carbon Dioxide 29 BUN 42 H Creatinine 0.73 Glucose 188 H Calcium 8.2 L - ABG Interpretation ABG results: PT/INR, D-dimer PT 11.5 Seconds (9.4-12.1) 04/01/17 19:25 - Impressions Impressions Chest X-Ray 04/02/17 08:47 IMPRESSION: 1. Worsening left basilar lung infiltrate, likely related to pleural effusion with associated atelectasis. Superimposed pneumonia cannot be excluded. 2. Small right pleural effusion with associated right basilar atelectasis, stable. D/ : / 04/02/2017 09:22:37 Clement Palm MD / [facility] Interpreting Provider: Clement Palm MD - VTE Documentation of Mechanical Device: Intermittent pneumatic compression device Consult Discharge Plan - Plan Referrals: Memo Cody MD [Primary Care Provider] -
[2017-04-03] MEDS ORDERED: Bisacodyl 10 MG RECTAL SUPPOSITORY RC SCH (12:45)
[2017-04-03] MEDS ORDERED: Bisacodyl 10 MG RECTAL SUPPOSITORY RC PRN (13:49)
[2017-04-03] MEDS: D5% in Water 1,000 ML IVC SCH (17:21)
[2017-04-03] MEDS: Clinimix E 5%-15% SOLUTION 2,000 ML with MVI, adult with vitamin K 10 ML IVC SCH (17:23)
[2017-04-03] MEDS: Acetylcysteine 10% 2 ML INHSOL IH SCH ×2 (20:32→23:00)
[2017-04-03] MEDS: *HR* Morphine 2 MG/ML SYRINGE IVP PRN (23:51)
[2017-04-04] MEDS: Insulin LISPRO 300 UNITS/3 ML VIAL SQ SCH ×6 (01:47→21:51)
[2017-04-04] MEDS: Ipratropium/Albuterol Neb 3 ML IH SCH ×6 (03:43→23:00)
[2017-04-04] MEDS: Acetylcysteine 10% 2 ML INHSOL IH SCH ×6 (03:43→23:01)
[2017-04-04] MEDS: *HR* Enoxaparin 80 MG/0.8 ML SYRINGE SQ SCH ×2 (06:07→18:56)
[2017-04-04] MEDS: *HR* Metoprolol 5 MG/5 ML VIAL IVP SCH ×4 (06:14→23:58)
[2017-04-04] MEDS: Pantoprazole 40 MG VIAL IVP SCH ×2 (06:16→18:55)
[2017-04-04] MEDS: Metoclopramide 10 MG/2 ML VIAL IVP SCH ×4 (06:18→23:58)
[2017-04-04 06:28] LABS: Basophils % 0.1 %; Eosinophils # 0.2 K/mcL (0.0-0.6); Eosinophils % 1.7 %; Hematocrit 28.3 % (35.3-44.9); Hemoglobin 8.5 g/dL (11.5-15.4); Immature Granulocytes % 1.7 % (0-4); Lymphocytes # 1.4 K/mcL (0.6-4.6); Lymphocytes % 10.4 %; Mean Corpuscular Hemoglobin 27.3 pg (28.0-33.3); Mean Platelet Volume 11.5 fL (9.4-12.4); Monocytes # 0.7 K/mcL (0.0-1.3); Monocytes % 5.3 %; Neutrophils # 10.8 K/mcL (1.6-8.9); Nucleated Red Blood Cells 0.2 /100 WBC (0); Platelet Count 243 K/mcL (140-400); Red Blood Count 3.11 M/mcL (3.82-4.97); Red Cell Distribution Width 16.4 % (11.5-14.5); Segmented Neutrophils % 80.8 %
[2017-04-04 06:51] LABS: BUN/Creatinine Ratio 63 (6-26); Blood Urea Nitrogen 39 mg/dL (8-23); Calcium 8.2 mg/dL (8.6-10.3); Carbon Dioxide 29 mEq/L (23-29); Chloride 110 mEq/L (98-107); Glucose 215 mg/dL (70-105); Osmolality,Calculated 314 (280-300); Phosphorous 2.9 mg/dL (2.7-4.5); Potassium 3.8 mEq/L (3.5-5.1); Sodium 144 mEq/L (136-145); eGFR For African Americans > 60 (> 60); eGFR For Non-African Americans > 60 (> 60)
[2017-04-04] MEDS: Budesonide/Formoterol 160/4.5 MDI IH SCH ×2 (07:39→20:20)
[2017-04-04] MEDS: *HR* Morphine 2 MG/ML SYRINGE IVP PRN (08:38)
[2017-04-04] MEDS: Furosemide 40 MG/4 ML VIAL IVP SCH ×2 (08:38→18:58)
--- NOTE | 2017-04-04 08:50 | General Surgery Progress Note ---
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 -NG Do not remove, if falls off, do not replace -J-tube: Maintain 25 cc/hr feeds (the red one). Do not advance feeds, overnight MARILOU drain: serosanguinous, -Enlisted Advisor involved with care and appreciate co-management Continue PT/OT Ambulate with assistance, encourage deep breathing (2) Atelectasis Current Visit: Yes Status: Acute Encourage incentive spirometry use Management per primary. (3) Aspiration into respiratory tract Current Visit: Yes Status: Acute s/p aspiration with Gastograffin Maintain head of Bed at 30 degrees Qualifiers: Encounter type: subsequent encounter Qualified Code(s): T17.908D - Unspecified foreign body in respiratory tract, part unspecified causing other injury, subsequent encounter (4) New onset atrial fibrillation Current Visit: Yes Status: Acute Cardiology consulted. (5) Severe protein-calorie malnutrition Current Visit: Yes Status: Chronic Per primary team. (6) DVT (deep venous thrombosis) Current Visit: Yes Status: Acute Pt. Positive for DVT in the Right Upper Extremity in the Brachial Vein and Positive for SVT in the Left Upper Extremity Cephalic Vein. Management per primary team. Qualifiers: DVT location: upper extremity Affected thrombotic vein of extremity: brachial Chronicity: acute Laterality: right Qualified Code(s): I82.621 - Acute embolism and thrombosis of deep veins of right upper extremity (7) DVT prophylaxis Current Visit: Yes Status: Acute Management per primary. Subjective Patient reports: no new complaints, afebrile Narrative: Pt slept well overnight, stays she'd like to sit up today. Per RN, pt was sitting upright most of day. Objective Vital Signs - Last 8 Hours Temp Pulse Resp BP Pulse Ox 04/04/17 07:35 18 136/72 95 04/04/17 06:56 97.8 F 79 16 136/72 96 04/04/17 05:25 98.1 F 111 18 111/61 100 04/04/17 03:43 17 97 04/04/17 00:50 98.2 F 96 18 126/59 93 Intake and Output 04/03/17 04/04/17 04/04/17 23:59 07:59 15:59 Intake Total 60 / 60 1427 / 1427 Output Total 1550 / 1550 1050 / 1050 Balance -1490 / -1490 377 / 377 Intake: IV Fluids 250 / 250 Intralipid 20% 250 ML @ 21 mls/ 250 / 250 hr IVPB DAILY@1700 [facility] Rx#: [id number] Oral 0 / 0 0 / 0 Tube Feeding 1017 / 1017 Free Water 100 / 100 Free Water Intake Amount 60 / 60 60 / 60 Output: Gastric Tube Lavage Amount 0 / 0 0 / 0 LUQ1 0 / 0 0 / 0 Right Nare 0 / 0 0 / 0 Other 50 / 50 Catheter 1500 / 1500 1000 / 1000 Wound Drainage 50 / 50 Left Upper Abdomen 50 / 50 Other: Weight 69.1 kg Blood Glucose* 187 200 Patient Weight 04/04/17 23:59 Weight 69.1 kg - General physical appearance no distress - Eyes normal ocular movement - Respiratory other (good air flow b/l, improved breath sounds from yesterday) - Cardiovascular Cardiovascular exam: Present: regular rhythm. Absent: murmurs - Abdomen Abdomen: Present: bowel sounds present, soft, tender (No rebound. Expected post- operative tenderness. ) Additional Comments: MARILOU drain serosangenous fluid NG tube 100 ml overnight, bile-colored - Incision Incision: Present: draining (MARILOU ) - Psychiatric oriented to time, oriented to person, oriented to place - Labs 04/04/17 06:20 04/04/17 06:20 Diabetes panel 04/04/17 Range/Units 06:20 Sodium 144 (136-145) mEq/L Potassium 3.8 (3.5-5.1) mEq/L Chloride 110 H (98-107) mEq/L Carbon Dioxide 29 (23-29) mEq/L BUN 39 H (8-23) mg/dL Creatinine 0.62 (0.60-1.20) mg/dL Glucose 215 H (70-105) mg/dL Calcium 8.2 L (8.6-10.3) mg/dL Calcium panel 04/04/17 Range/Units 06:20 Calcium 8.2 L (8.6-10.3) mg/dL Phosphorus 2.9 (2.7-4.5) mg/dL Pituitary panel 04/04/17 Range/Units 06:20 Sodium 144 (136-145) mEq/L Potassium 3.8 (3.5-5.1) mEq/L Chloride 110 H (98-107) mEq/L Carbon Dioxide 29 (23-29) mEq/L BUN 39 H (8-23) mg/dL Creatinine 0.62 (0.60-1.20) mg/dL Glucose 215 H (70-105) mg/dL Calcium 8.2 L (8.6-10.3) mg/dL Adrenal panel 04/04/17 Range/Units 06:20 Sodium 144 (136-145) mEq/L Potassium 3.8 (3.5-5.1) mEq/L Chloride 110 H (98-107) mEq/L Carbon Dioxide 29 (23-29) mEq/L BUN 39 H (8-23) mg/dL Creatinine 0.62 (0.60-1.20) mg/dL Glucose 215 H (70-105) mg/dL Calcium 8.2 L (8.6-10.3) mg/dL - VTE Documentation of Mechanical Device: Intermittent pneumatic compression device Consult Discharge Plan - Plan Referrals: Memo Cody MD [Primary Care Provider] - <Serena García - Last Filed: 04/04/17 15:07> Date of Encounter: 04/04/17 Time of Encounter: 14:59 - Assessment and Plan (1) History of repair of hiatal hernia Current Visit: Yes Status: Acute patient doing well from her ex lap debridement repair of distal esophagus and stomach, gtube, jtube tolerating tube feeds has flatus and bm yesterday no nausea only complaints feeling tired continue PT/OT continue ngt/gtube MARILOU serosang - appropriate (2) DVT (deep venous thrombosis) Current Visit: Yes Status: Acute anticoagulated Qualifiers: DVT location: upper extremity Affected thrombotic vein of extremity: brachial Chronicity: acute Laterality: right Qualified Code(s): I82.621 - Acute embolism and thrombosis of deep veins of right upper extremity (3) Severe protein-calorie malnutrition Current Visit: Yes Status: Chronic continue tpn cont tube feeds at 25 / hr (4) Leukocytosis Current Visit: Yes Status: Acute elevated but staple patient with aspiration pneumonitis? large left pleural effusion residing in space once occupied by stomach Qualifiers: Leukocytosis type: unspecified Qualified Code(s): D72.829 - Elevated white blood cell count, unspecified Subjective Patient reports: no new complaints, feels better, still having pain, pain is less, flatus, bowel movement, afebrile Narrative: tolerting tube feeds at 25cc/hr without complalints of nausea or abdominal distention +flatus/bm yesterday Objective Vital Signs - Last 8 Hours Temp Pulse Resp BP Pulse Ox 04/04/17 11:13 97.4 F L 101 16 115/90 99 04/04/17 09:56 96 04/04/17 07:35 18 136/72 95 Intake and Output 04/03/17 04/04/17 04/04/17 23:59 07:59 15:59 Intake Total 60 / 60 1427 / 1427 Output Total 1550 / 1550 1050 / 1050 Balance -1490 / -1490 377 / 377 Intake: IV Fluids 250 / 250 Intralipid 20% 250 ML @ 21 mls/ 250 / 250 hr IVPB DAILY@1700 [facility] Rx#: [id number] Oral 0 / 0 0 / 0 Tube Feeding 1017 / 1017 Free Water 100 / 100 Free Water Intake Amount 60 / 60 60 / 60 Output: Gastric Tube Lavage Amount 0 / 0 0 / 0 LUQ1 0 / 0 0 / 0 Right Nare 0 / 0 0 / 0 Other 50 / 50 Catheter 1500 / 1500 1000 / 1000 Wound Drainage 50 / 50 Left Upper Abdomen 50 / 50 Other: Weight 69.1 kg Blood Glucose* 187 200 142 Patient Weight 04/04/17 23:59 Weight 69.1 kg - General physical appearance no distress, chronically ill - Eyes PERRL, normal ocular movement - ENT normal mucosa, normocephalic - Neck Neck exam: trachea midline - Respiratory other rales: bilateral - Cardiovascular Cardiovascular exam: Present: RRR - Abdomen Abdomen: Present: bowel sounds present, soft, tender - Incision Incision: Present: clean and dry, intact - Integumentary no rash, no growths - Neurologic CN 2-12 grossly intact - Musculoskeletal normal posture - Psychiatric oriented to time, oriented to person, oriented to place, memory intact - Additional Exam MARILOU drain serousang ngt bilious gtube bilious Jtube - tube feeds infusing child - clear yellow urine - Labs 04/04/17 06:20 04/04/17 06:20 Diabetes panel 04/04/17 Range/Units 06:20 Sodium 144 (136-145) mEq/L Potassium 3.8 (3.5-5.1) mEq/L Chloride 110 H (98-107) mEq/L Carbon Dioxide 29 (23-29) mEq/L BUN 39 H (8-23) mg/dL Creatinine 0.62 (0.60-1.20) mg/dL Glucose 215 H (70-105) mg/dL Calcium 8.2 L (8.6-10.3) mg/dL Calcium panel 04/04/17 Range/Units 06:20 Calcium 8.2 L (8.6-10.3) mg/dL Phosphorus 2.9 (2.7-4.5) mg/dL Pituitary panel 04/04/17 Range/Units 06:20 Sodium 144 (136-145) mEq/L Potassium 3.8 (3.5-5.1) mEq/L Chloride 110 H (98-107) mEq/L Carbon Dioxide 29 (23-29) mEq/L BUN 39 H (8-23) mg/dL Creatinine 0.62 (0.60-1.20) mg/dL Glucose 215 H (70-105) mg/dL Calcium 8.2 L (8.6-10.3) mg/dL Adrenal panel 04/04/17 Range/Units 06:20 Sodium 144 (136-145) mEq/L Potassium 3.8 (3.5-5.1) mEq/L Chloride 110 H (98-107) mEq/L Carbon Dioxide 29 (23-29) mEq/L BUN 39 H (8-23) mg/dL Creatinine 0.62 (0.60-1.20) mg/dL Glucose 215 H (70-105) mg/dL Calcium 8.2 L (8.6-10.3) mg/dL - Imaging Additional Studies: CTA images viewed by myself - Attending Attestation I examined this patient and my medical decision-making was reviewed with the Resident Physician. I agree with the documented findings, disposition and treatment plan as described except to the extent set forth below.
--- NOTE | 2017-04-04 09:07 | Event Note ---
Date of Encounter: 04/04/17 Time of Encounter: 09:03 CTA chest reviewed c/w with large left effusion with evidence of aspiration throughout the left tracheobroncial tree. Patient would benefit from bronchoscopy which could be coupled with Thoracentesis of left effusion. Because this seizures not deemed emergent and she was on full anticoagulation for upper extremity PICC associated DVT I recommend holding her evening dose of Lovenox we will plan to proceed tomorrow. Patient is agreeable to proceeding with both procedures understanding that she will be at slightly increased risk of worsening thrombosis because of recent DVT. Cont NPO status. Agressive BPT. D /w with Medicine Attending Dr Al.
--- NOTE | 2017-04-04 09:41 | Internal Med Progress Note ---
Date of Encounter: 04/04/17 Time of Encounter: 08:15 - Assessment and plan (1) Acute respiratory failure with hypoxia Current Visit: Yes Status: Acute Assessment and plan: - Acute respiratory failure with hypoxia secondary to aspiration of Gastrograffin for upper GI series - CTA shows debris in airway and pleural effusion - Pt currently tolerated 2-4L of O2 via NC. - No reported home O2 requirement. - Feels clinically dyspneic though not more hypoxic Plan - Discussed with pulmonary. Anticipate bronch tomorrow. (2) 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 Current Visit: Yes Status: Acute Assessment and plan: - Patient was noted to aspirate all of her Gastrograffin and could not complete the upper GI study. - Patient is hemodynamically stable and appears to be improving - Tolerating 4 liters NC Plan: Continue to decrease O2 requirement as able. Nothing by mouth CTA showed debris in airway Plan for bronch tomorrow. (3) DVT (deep venous thrombosis) Current Visit: Yes Status: Acute Assessment and plan: Currently on Lovenox BID. Hold Lovenox in AM for bronch Qualifiers: DVT location: upper extremity Affected thrombotic vein of extremity: brachial Chronicity: acute Laterality: right Qualified Code(s): I82.621 - Acute embolism and thrombosis of deep veins of right upper extremity (4) Hiatal hernia Current Visit: Yes Status: Acute Assessment and plan: s/p surgery (5) Aspiration into respiratory tract Current Visit: Yes Status: Acute Assessment and plan: - As above. Qualifiers: Encounter type: subsequent encounter Qualified Code(s): T17.908D - Unspecified foreign body in respiratory tract, part unspecified causing other injury, subsequent encounter (6) Hypertension Current Visit: Yes Status: Acute Assessment and plan: - Improved today. Continue current meds. Qualifiers: Hypertension type: essential hypertension Qualified Code(s): I10 - Essential (primary) hypertension (7) Severe protein-calorie malnutrition Current Visit: Yes Status: Chronic Assessment and plan: Currently on TPN - Subjective Interval history: Ms Leach is currently admitted for paraesophageal hernia with gastric voluvulus s/p repair. She remains moderate to high risk due to potential for worsening clinical status. Ms Leach is wanting to get out of bed to the chair. Still with a lot of coughing and congestion. Still feels like it is difficult to take deep breath. No fever. No CP. - Constitutional Vitals: Temp Pulse Resp BP Pulse Ox 97.8 F 79 18 136/72 95 04/04/17 06:56 04/04/17 06:56 04/04/17 07:35 04/04/17 07:35 04/04/17 07:35 General appearance: Present: A&O X 3, answers questions appropriately - Head Head exam: Present: atraumatic, normocephalic - Eye Eye exam: Present: EOMI, conjuntiva pink - ENT ENT exam: Present: mucous membranes dry - Respiratory Respiratory exam: Present: decreased breath sounds, rhonchi - Cardiovascular Cardiovascular exam: Present: distant heart sounds, irregular rhythm. Absent: tachycardia - GI/Abdominal GI/Abdominal exam: Present: soft - Extremities Exam Extremities exam: Present: warm. Absent: tenderness - Neurological Exam Neurological exam: Present: alert, oriented X3 - Skin Skin exam: Present: dry, warm. Absent: rash Internal Medicine: Result - Labs CBC & Chem 7: 04/04/17 06:20 04/04/17 06:20 Labs: Short CBC 04/04/17 Range/Units 06:20 WBC 13.3 H (4.3-11.1) K/mcL Hgb 8.5 L (11.5-15.4) g/dL Hct 28.3 L (35.3-44.9) % Plt Count 243 (140-400) K/mcL Neutrophils # 10.8 H (1.6-8.9) K/mcL BMP 04/04/17 06:20 Sodium 144 Potassium 3.8 Chloride 110 H Carbon Dioxide 29 BUN 39 H Creatinine 0.62 Glucose 215 H Calcium 8.2 L - ABG Interpretation ABG results: PT/INR, D-dimer PT 11.5 Seconds (9.4-12.1) 04/01/17 19:25 - Impressions Impressions Chest CTA 04/03/17 09:25 IMPRESSION: 1. No acute pulmonary emboli. 2. Stable mild right pleural effusion and right lower lobe atelectasis. There is mild right endobronchial tree nonobstructive layering fluid which may relate to aspiration. New patchy right upper lobe peripheral opacities which may relate to acute infectious/inflammatory process or mild patchy edema. 3. Progressive now large left pleural effusion. There is near complete opacification of the left endobronchial tree involving the lingular and lower lobe segments with complete left lower lobe atelectasis and mild-moderate lingular atelectasis. Improved right upper lobe consolidative changes as seen on the prior exam with some mild residual bronchiolitis. 4. Enteric tube extends to the distal esophagus. There is extensive postsurgical distal esophageal and visualized stomach edema and adjacent free fluid. D/ / 04/03/2017 17:15:58 Nitish Hurtado MD / tahir Interpreting Provider: Nitish Hurtado MD - VTE Documentation of Mechanical Device: Intermittent pneumatic compression device Consult Discharge Plan - Plan Referrals: Memo Cody MD [Primary Care Provider] -
[2017-04-04] MEDS: D5% in Water 1,000 ML IVC SCH (15:47)
[2017-04-04] MEDS: Saline Nasal Spray 44 ML BOTTLE NS PRN (15:47)
[2017-04-04] MEDS ORDERED: *HR* Alteplase (Cathflo) 2 MG VIAL IVP ONE (15:56)
[2017-04-04] MEDS: Clinimix E 5%-15% SOLUTION 2,000 ML with MVI, adult with vitamin K 10 ML IVC SCH ×2 (18:55→18:57)
[2017-04-05] MEDS: Insulin LISPRO 300 UNITS/3 ML VIAL SQ SCH ×6 (00:44→20:50)
[2017-04-05] MEDS: Ipratropium/Albuterol Neb 3 ML IH SCH ×5 (04:38→19:40)
[2017-04-05] MEDS: Acetylcysteine 10% 2 ML INHSOL IH SCH ×5 (04:39→19:40)
[2017-04-05] MEDS: *HR* Metoprolol 5 MG/5 ML VIAL IVP SCH ×3 (05:37→18:03)
[2017-04-05] MEDS: Metoclopramide 10 MG/2 ML VIAL IVP SCH ×3 (05:37→18:03)
[2017-04-05] MEDS: Pantoprazole 40 MG VIAL IVP SCH ×2 (05:37→18:03)
[2017-04-05 06:38] LABS: Basophils % 0.2 %; Eosinophils # 0.2 K/mcL (0.0-0.6); Eosinophils % 1.8 %; Hematocrit 25.6 % (35.3-44.9); Hemoglobin 7.8 g/dL (11.5-15.4); Immature Granulocytes % 1.2 % (0-4); Lymphocytes # 1.2 K/mcL (0.6-4.6); Lymphocytes % 10.4 %; Mean Corpuscular HGB Conc 30.5 g/dL (31.6-35.5); Mean Corpuscular Hemoglobin 27.9 pg (28.0-33.3); Mean Corpuscular Volume 91.4 fL (83.0-100.0); Mean Platelet Volume 11.7 fL (9.4-12.4); Monocytes # 0.6 K/mcL (0.0-1.3); Monocytes % 4.8 %; Neutrophils # 9.5 K/mcL (1.6-8.9); Nucleated Red Blood Cells 0.2 /100 WBC (0); Platelet Count 246 K/mcL (140-400); Red Cell Distribution Width 16.4 % (11.5-14.5); Segmented Neutrophils % 81.6 %
[2017-04-05 07:00] LABS: Triglycerides 135 mg/dL (< 150)
--- NOTE | 2017-04-05 08:19 | General Surgery Progress Note ---
<Rhiannon Dennis - Last Filed: 04/05/17 11:25> Date of Encounter: 04/05/17 Time of Encounter: 08:14 - Assessment and Plan (1) Hiatal hernia Current Visit: Yes Status: Acute POD 7 for Paraesophageal hernia with intrathoracic gastric volvulus. Segmental gastric necrosis. Distal esophageal necrosis -s/p #1 reduction of gastric volvulus #2 repair of hiatal hernia #3 debridement and primary repair of distal esophagus #4 resection of gastric necrosis ( tangential resection of full-thickness necrotic ulcers times 4) #5 gastrostomy tube #6 jejunostomy tube Pathology results: folcally ulcerated mucosa, acute on chronic inflammation, transmural necrosis with clear margins. -CXR reviewed with Dr. Castillo -May go to bronchoscopy today, pending evaluation by pulmonology. -Please resume feeding s/p bronchoscopy -Tube outputs reviewed with Dr. Castillo, with appropriate drainage evident -D/c NG-tube -Will wean TPN with advancement of tube feds -Nutrition Representative involved, MINDY Kaur notified order entry technician for appropriate co- management -Continue PT/OT -Ambulate with assistance, encourage deep breathing -Maintain head of bed elevated at 30* (2) Aspiration into respiratory tract Current Visit: Yes Status: Acute s/p aspiration with Gastograffin 04/03 CTA shown left effusion with evidence of aspiration through L tracheobroncial tree. Plan for bronchoscopy, possible thoracentesis Maintain head of Bed at 30 degrees Qualifiers: Encounter type: subsequent encounter Qualified Code(s): T17.908D - Unspecified foreign body in respiratory tract, part unspecified causing other injury, subsequent encounter (3) New onset atrial fibrillation Current Visit: Yes Status: Acute Cardiology consulted. (4) Severe protein-calorie malnutrition Current Visit: Yes Status: Chronic Per primary team. (5) DVT (deep venous thrombosis) Current Visit: Yes Status: Acute Pt. Positive for DVT in the Right Upper Extremity in the Brachial Vein and Positive for SVT in the Left Upper Extremity Cephalic Vein. Management per primary team. 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 Subjective Patient reports: afebrile Narrative: Pt complaining of "numbness" in feet and hands. No other complaints. Says she hopes this is not indicative of Guillan Bement syndrome, which she states she had 6 years ago. Objective Vital Signs - Last 8 Hours Temp Pulse Resp BP Pulse Ox 04/05/17 08:04 16 100 04/05/17 06:43 98.2 F 76 16 127/53 100 04/05/17 05:04 98.4 F 86 18 152/62 98 04/05/17 04:38 18 96 Intake and Output 04/04/17 04/05/17 04/05/17 23:59 07:59 15:59 Intake Total 60 / 60 310 / 310 Output Total 1350 / 1350 1175 / 1175 Balance -1290 / -1290 -865 / -865 Intake: IV Fluids 250 / 250 Intralipid 20% 250 ML @ 21 mls/ 250 / 250 hr IVPB DAILY@1700 [facility] Rx#: [id number] Oral 0 / 0 0 / 0 Free Water Intake Amount 60 / 60 60 / 60 Output: Gastric Tube Lavage Amount 375 / 375 LUQ1 375 / 375 Catheter 1350 / 1350 800 / 800 Urethral (Peralta) 800 / 800 Other: Weight 68.1 kg Blood Glucose* 214 182 Patient Weight 04/05/17 23:59 Weight 68.1 kg - General physical appearance no distress - Eyes normal ocular movement (Extraocular movement intact. ) - ENT Other (nasal cannula, Pt on 5 L O2 in AM, O2 > 92% per RN. ) - Respiratory normal expansion, other (equal breathsound b/l. ) - Cardiovascular Cardiovascular exam: Present: regular rhythm Addtional Comments: +S1, S2 - Abdomen Abdomen: Present: bowel sounds present, soft, tender (expected post-op tenderness. ) - Neurologic other ( No assymmetry noted in facial expression. ) - Musculoskeletal other (Parasthesia in LE feet b/l with sharp object, limited to toes. Adequate sensation in dorsal foot and thigh. Warm and dry feet. Pt able to lift b/l LE at command. Delayed capillary refill in hands b/l. Audible dorsalis pedis and posterior tibial pulses b/l with doppler. ) - Psychiatric oriented to person, oriented to place - Labs 04/05/17 05:45 04/05/17 05:45 Diabetes panel 04/05/17 Range/Units 05:45 Triglycerides 135 (< 150) mg/dL - VTE Documentation of Mechanical Device: Intermittent pneumatic compression device Consult Discharge Plan - Plan Referrals: Memo Cody MD [Primary Care Provider] - <Kayden Castillo - Last Filed: 04/05/17 19:31> Date of Encounter: 04/05/17 Objective Vital Signs - Last 8 Hours Temp Pulse Resp BP Pulse Ox 04/05/17 16:13 14 96 04/05/17 16:11 97.4 F L 92 15 134/70 96 04/05/17 12:17 97.9 F 112 14 147/87 93 04/05/17 11:43 16 100 Intake and Output 04/05/17 04/05/17 04/05/17 07:59 15:59 23:59 Intake Total 310 / 310 60 / 60 60 / 60 Output Total 1175 / 1175 3000 / 3000 650 / 650 Balance -865 / -865 -2940 / -2940 -590 / -590 Intake: IV Fluids 250 / 250 Intralipid 20% 250 ML @ 21 mls/ 250 / 250 hr IVPB DAILY@1700 [facility] Rx#: [id number] Oral 0 / 0 0 / 0 Free Water Intake Amount 60 / 60 60 / 60 60 / 60 Output: Gastric Tube Lavage Amount 375 / 375 LUQ1 375 / 375 Catheter 800 / 800 3000 / 3000 650 / 650 Urethral (Peralta) 800 / 800 Other: Meal npo Weight 68.1 kg Blood Glucose* 182 147 155 Patient Weight 04/05/17 23:59 Weight 68.1 kg - Labs 04/05/17 05:45 04/05/17 05:45 Diabetes panel 04/05/17 Range/Units 05:45 Sodium 144 (136-145) mEq/L Potassium 3.7 (3.5-5.1) mEq/L Chloride 108 H (98-107) mEq/L Carbon Dioxide 29 (23-29) mEq/L BUN 41 H (8-23) mg/dL Creatinine 0.62 (0.60-1.20) mg/dL Glucose 191 H (70-105) mg/dL Calcium 8.0 L (8.6-10.3) mg/dL Triglycerides 135 (< 150) mg/dL Calcium panel 04/05/17 Range/Units 05:45 Calcium 8.0 L (8.6-10.3) mg/dL Phosphorus 3.4 (2.7-4.5) mg/dL Pituitary panel 04/05/17 Range/Units 05:45 Sodium 144 (136-145) mEq/L Potassium 3.7 (3.5-5.1) mEq/L Chloride 108 H (98-107) mEq/L Carbon Dioxide 29 (23-29) mEq/L BUN 41 H (8-23) mg/dL Creatinine 0.62 (0.60-1.20) mg/dL Glucose 191 H (70-105) mg/dL Calcium 8.0 L (8.6-10.3) mg/dL Adrenal panel 04/05/17 Range/Units 05:45 Sodium 144 (136-145) mEq/L Potassium 3.7 (3.5-5.1) mEq/L Chloride 108 H (98-107) mEq/L Carbon Dioxide 29 (23-29) mEq/L BUN 41 H (8-23) mg/dL Creatinine 0.62 (0.60-1.20) mg/dL Glucose 191 H (70-105) mg/dL Calcium 8.0 L (8.6-10.3) mg/dL - Attending Attestation I examined this patient and my medical decision-making was reviewed with the Resident Physician. I agree with the documented findings, disposition and treatment plan as described except to the extent set forth below. The patient seen and evaluated on morning rounds with the resident. She is doing quite well. We will remove the nasogastric tube today and keep the gastrostomy tube to gravity drain. We will also increase her jejunostomy tube feedings and wean her TPN Kayden Castillo MD FACS
--- NOTE | 2017-04-05 08:55 | Pulmonology Progress Note ---
Date of Encounter: 04/05/17 Time of Encounter: 08:55 Assessment and Plan (1) Aspiration into respiratory tract Current Visit: Yes Status: Acute Patient had aspiration of gastric contents earlier part of the admission with secretion pooling in the left main bronchus which was leading left lower lobe collapse with part of left upper lobe involved was scheduled for bronchoscopy today , patient needed overnight BIPAP which she tolerated well , today morning patient was clinically better and exam was much better it was decided to hold off the bronchoscopy i repeated the CT scan w/o contrast which showed expanded left lower lobe and left upper lobe with not much secretions in both left lung lobar airways and the Right lung lobar airways , the left sided pleural effusion is slightly diminished spoke with patient and primary team will cancel the bronchoscopy for today , patient can put can be put back on anticoagulation .Will follow . Qualifiers: Encounter type: subsequent encounter Qualified Code(s): T17.908D - Unspecified foreign body in respiratory tract, part unspecified causing other injury, subsequent encounter (2) Acute respiratory failure with hypoxia Current Visit: Yes Status: Acute Multifactorial with bilateral pleural effusion and bilateral lower lobe atelectasis ,aspiration pneumonitis wean down FIO2 to Keep SPO2> 92% .To continue diuresis as primary team . 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 Patient is on tube feeds now (4) DVT (deep venous thrombosis) Current Visit: Yes Status: Acute To continue anticogulation as primary team Qualifiers: DVT location: upper extremity Affected thrombotic vein of extremity: brachial Chronicity: acute Laterality: right Qualified Code(s): I82.621 - Acute embolism and thrombosis of deep veins of right upper extremity Subjective Principal diagnosis: aspiration Interval history: 81 year old female had a recent aspiration of gastrograffin last week developed aspiration pneumonia and pneumonitis was on antibiotics completed the course because her O2 requirements was not improving CTA was repeated on 04/03 which showed no evidence of PE but had secretions in the left main stem bronchus with left lower lobe and upper lobe volume loss patient was scheduled for bronchoscopy today , patient was on BIPAP overnight now she is getting transitioned to high flow nasal cannula 6 litres patient said she is feeling lot better today after the BIPAP machine , has cough but not much sputum production,denies any chest pain or undue shortness of breadth denies any other constitutional symptoms pulmonary was asked to follow to evaluate left main stem obstruction with volume loss. Objective PUL Vital signs: Last Vital Signs Temp 98.2 F 04/05/17 06:43 Pulse 76 04/05/17 06:43 Resp 16 04/05/17 08:04 BP 127/53 04/05/17 06:43 Pulse Ox 100 04/05/17 08:04 Auscultation: bilateral: diminished breath sounds (bilateral basilar diminished breadth with left greater than right) Results - Laboratory Findings CBC and BMP: 04/05/17 05:45 04/05/17 05:45 PT/INR, D-dimer PT 11.5 Seconds (9.4-12.1) 04/01/17 19:25 Abnormal lab findings: Abnormal lab results WBC 11.6 K/mcL (4.3-11.1) H 04/05/17 05:45 RBC 2.80 M/mcL (3.82-4.97) L 04/05/17 05:45 Hgb 7.8 g/dL (11.5-15.4) L 04/05/17 05:45 Hct 25.6 % (35.3-44.9) L 04/05/17 05:45 MCH 27.9 pg (28.0-33.3) L 04/05/17 05:45 MCHC 30.5 g/dL (31.6-35.5) L 04/05/17 05:45 RDW 16.4 % (11.5-14.5) H 04/05/17 05:45 Neutrophils # 9.5 K/mcL (1.6-8.9) H 04/05/17 05:45 Nucleated RBCs/100 WBC 0.2 /100 WBC (0) H 04/05/17 05:45 APTT 59.7 Seconds (26.0-36.0) H 04/02/17 12:50 Heparin Anti-Xa, Unfract 1.00 IU/mL (0.30-0.70) H* 04/02/17 03:27 VBG pH 7.44 pH Units (7.32-7.42) H 03/28/17 04:28 VBG pO2 119 mmHg (25-50) H 03/28/17 04:19 VBG HCO3 28 mEq/L (21-27) H 03/28/17 04:19 Chloride 110 mEq/L (98-107) H 04/04/17 06:20 BUN 39 mg/dL (8-23) H 04/04/17 06:20 BUN/Creatinine Ratio 63 (6-26) H 04/04/17 06:20 Glucose 215 mg/dL (70-105) H 04/04/17 06:20 POC Glucose 218 (58-89) H 04/04/17 00:54 Calculated Osmolality 314 (280-300) H 04/04/17 06:20 Calcium 8.2 mg/dL (8.6-10.3) L 04/04/17 06:20 Troponin I 0.10 ng/mL (< 0.04) H* 03/28/17 04:02 B-Natriuretic Peptide 252 pg/mL (Less than 100) H 03/26/17 10:56 Prealbumin 12.4 mg/dL (17.0-34.0) L 03/27/17 04:27 - Clinical Findings Intake & Output: Intake & Output 04/04/17 04/05/17 04/05/17 23:59 07:59 15:59 Intake Total 60 / 60 310 / 310 Output Total 1350 / 1350 1175 / 1175 Balance -1290 / -1290 -865 / -865 Weight 68.1 kg - VTE Documentation of Mechanical Device: Intermittent pneumatic compression device Consult Discharge Plan - Plan Referrals: Memo Cody MD [Primary Care Provider] -
[2017-04-05] MEDS ORDERED: OXYCODONE Oral CONC 10 MG/0.5 ML ORAL.SYG SL PRN (10:00)
[2017-04-05] MEDS ORDERED: D10% in Water 500 ML IVC PRN (10:01)
[2017-04-05] MEDS: Furosemide 40 MG/4 ML VIAL IVP SCH ×2 (10:35→17:01)
[2017-04-05 10:38] LABS: ABG Base Excess 5 mEq/L (-2 to 3); ABG HCO3 29 mEq/L (21-27); ABG Oxygen Saturation 97 % (95-98); ABG PCO2 40 mmHg (35-45); ABG PH 7.47 pH Units (7.32-7.45); ABG PO2 82 mmHg (85-104); ABG TCO2 30 mEq/L (20-26)
[2017-04-05 10:48] LABS: BUN/Creatinine Ratio 66 (6-26); Blood Urea Nitrogen 41 mg/dL (8-23); Carbon Dioxide 29 mEq/L (23-29); Chloride 108 mEq/L (98-107); Glucose 191 mg/dL (70-105); Osmolality,Calculated 313 (280-300); Phosphorous 3.4 mg/dL (2.7-4.5); Potassium 3.7 mEq/L (3.5-5.1); Sodium 144 mEq/L (136-145); eGFR For African Americans > 60 (> 60); eGFR For Non-African Americans > 60 (> 60)
[2017-04-05] MEDS: Budesonide/Formoterol 160/4.5 MDI IH SCH ×2 (11:41→19:42)
--- NOTE | 2017-04-05 14:34 | Internal Med Progress Note ---
<Hood Valle - Last Filed: 04/05/17 15:48> Date of Encounter: 04/05/17 Time of Encounter: 09:10 - Assessment and plan (1) Acute respiratory failure with hypoxia Current Visit: Yes Status: Acute Assessment and plan: - Acute respiratory failure with hypoxia secondary to aspiration of Gastrograffin for upper GI series with pleural effusion component -Repeat CTA this morning showing mild right and large left pleural effusion, both improved from previous. - Pt currently tolerated 2-4L of O2 via NC. - No reported home O2 requirement. 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 Plan to advance to feedings and wean TPN - We will discontinue NG tube today, per surgery -Output: MARILOU 50, gastric tube 375 over the last 24 hours. NG on intermittent suction -Hypoactive bowel sounds. Reports flatus, no BM - Pathology results: folcally ulcerated mucosa, acute on chronic inflammation, transmural necrosis with clear margins. 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 - Patient is hemodynamically stable and appears to be improving - Tolerating 2 liters NC - Completed an 8 day course of Zosyn during stay for possible aspiration Plan: Continue to decrease O2 requirement as able. Nothing by mouth CTA shows improvement of pleural effusions and increased airspace No plan for bronchoscopy as patient is clinically improving and CTA this morning is improved from previous We will continue to monitor at this time (4) Aspiration into respiratory tract Current Visit: Yes Status: Acute Assessment and plan: - As above. Qualifiers: Encounter type: subsequent encounter Qualified Code(s): T17.908D - Unspecified foreign body in respiratory tract, part unspecified causing other injury, subsequent encounter (5) Tachycardia Current Visit: Yes Status: Acute Assessment and plan: - Noted atrial tachycardia with rates in 120s. -Heart rate has been well controlled since transfer from ICU in 70s and 80s - Per cardiology, start ASA when safe from a surgical perspective. Plan - Continue to monitor - Continue metoprolol 5mg q6hr (6) Hypertension Current Visit: Yes Status: Acute Assessment and plan: - Improved today. most recently 147/87 Continue current meds. Qualifiers: Hypertension type: essential hypertension Qualified Code(s): I10 - Essential (primary) hypertension (7) DVT (deep venous thrombosis) Current Visit: Yes Status: Acute Assessment and plan: - DVT as demonstrated on ultrasound in right upper extremity , brachial - PICC line in place, noted flow around clot - Discussed with PICC team, recommended keep PICC line in place as there is flow around and left UE has superficial venous thrombosis and high chance of DVT - Discussed anticoagulation and we will continue lovenox 80 mg BID - No symptoms, swelling measured at 32 cm, +3 cm from baseline done at PICC line placement. Plan Continue Lovenox Qualifiers: DVT location: upper extremity Affected thrombotic vein of extremity: brachial Chronicity: acute Laterality: right Qualified Code(s): I82.621 - Acute embolism and thrombosis of deep veins of right upper extremity (8) DVT prophylaxis Current Visit: Yes Status: Acute Assessment and plan: - Lovenox for DVT as above - Time Spent With Patient 25 - 35 minutes - Subjective Interval history: Patient was seen and examined at bedside this AM. She reports that overall she is doing well with no complaints of CP, nausea, vomiting, generalized pain. She does report flatus. She continues to complain of shortness of breath, however she does note that is improved since yesterday. Oxygen saturation within normal limits. - Constitutional Vitals: Temp Pulse Resp BP Pulse Ox 97.9 F 112 14 147/87 93 04/05/17 12:17 04/05/17 12:17 04/05/17 12:17 04/05/17 12:17 04/05/17 12:17 General appearance: Present: A&O X 3, answers questions appropriately Exam: Gen.: Vitals noted. No acute distress. AAOx3 HEENT: PERRL/EOMI, oropharynx clear, Normocephalic, atraumatic Cardiac: Irregular, no murmur, +S1/S2 Pulmonary: Moderate wheezes bilaterally. Improved breath sounds from previous. equal chest expansion. Wet sounding cough Abdomen: soft, tender to palpation in epigastric region, BS noted, no guarding MSK: ROM intact, no joint swelling noted Extremities: no BLE edema, nontender calf, no cyanosis or clubbing Neuro: A&Ox3, moves all extremities, no focal deficits Psych: Appropriate mood and behavior Internal Medicine: Result - Labs CBC & Chem 7: 04/05/17 05:45 04/05/17 05:45 Labs: Short CBC 04/05/17 Range/Units 05:45 WBC 11.6 H (4.3-11.1) K/mcL Hgb 7.8 L (11.5-15.4) g/dL Hct 25.6 L (35.3-44.9) % Plt Count 246 (140-400) K/mcL Neutrophils # 9.5 H (1.6-8.9) K/mcL BMP 04/05/17 05:45 Sodium 144 Potassium 3.7 Chloride 108 H Carbon Dioxide 29 BUN 41 H Creatinine 0.62 Glucose 191 H Calcium 8.0 L - ABG Interpretation ABG results: ABG ABG pH 7.47 pH Units (7.32-7.45) H 04/05/17 10:35 ABG pCO2 40 mmHg (35-45) 04/05/17 10:35 ABG pO2 82 mmHg (85-104) L 04/05/17 10:35 ABG O2 Saturation 97 % (95-98) 04/05/17 10:35 PT/INR, D-dimer PT 11.5 Seconds (9.4-12.1) 04/01/17 19:25 - Impressions Impressions Chest CT 04/05/17 09:08 IMPRESSION: 1. Patchy ground-glass densities in the upper outer right lung may reflect alveolitis, unchanged from previous study. 2. Tree-in-bud configured opacities inferior left lingular typically seen with an acute infectious process. 3. Bibasilar consolidation and bilateral pleural effusion, left greater than right. Similar appearance previous study. 4. Calcific atherosclerotic disease aorta. 5. Hiatal hernia. 6. Chronic T11 compression fracture. 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 Current Visit: Yes Status: Acute (3) DVT (deep venous thrombosis) Current Visit: Yes Status: Acute Qualifiers: DVT location: upper extremity Affected thrombotic vein of extremity: brachial Chronicity: acute Laterality: right Qualified Code(s): I82.621 - Acute embolism and thrombosis of deep veins of right upper extremity (4) Hiatal hernia Current Visit: Yes Status: Acute (5) Aspiration into respiratory tract Current Visit: Yes Status: Acute Qualifiers: Encounter type: subsequent encounter Qualified Code(s): T17.908D - Unspecified foreign body in respiratory tract, part unspecified causing other injury, subsequent encounter (6) Hypertension Current Visit: Yes Status: Acute Qualifiers: Hypertension type: essential hypertension Qualified Code(s): I10 - Essential (primary) hypertension (7) Severe protein-calorie malnutrition Current Visit: Yes Status: Chronic - Constitutional Vitals: Temp Pulse Resp BP Pulse Ox 97.4 F L 92 14 134/70 96 04/05/17 16:11 04/05/17 16:11 04/05/17 16:13 04/05/17 16:11 04/05/17 16:13 Internal Medicine: Result - Labs CBC & Chem 7: 04/05/17 05:45 04/05/17 05:45 Labs: Short CBC 04/05/17 Range/Units 05:45 WBC 11.6 H (4.3-11.1) K/mcL Hgb 7.8 L (11.5-15.4) g/dL Hct 25.6 L (35.3-44.9) % Plt Count 246 (140-400) K/mcL Neutrophils # 9.5 H (1.6-8.9) K/mcL BMP 04/05/17 05:45 Sodium 144 Potassium 3.7 Chloride 108 H Carbon Dioxide 29 BUN 41 H Creatinine 0.62 Glucose 191 H Calcium 8.0 L - ABG Interpretation ABG results: ABG ABG pH 7.47 pH Units (7.32-7.45) H 04/05/17 10:35 ABG pCO2 40 mmHg (35-45) 04/05/17 10:35 ABG pO2 82 mmHg (85-104) L 04/05/17 10:35 ABG O2 Saturation 97 % (95-98) 04/05/17 10:35 PT/INR, D-dimer PT 11.5 Seconds (9.4-12.1) 04/01/17 19:25 - Impressions Impressions Chest CT 04/05/17 09:08 IMPRESSION: 1. Patchy ground-glass densities in the upper outer right lung may reflect alveolitis, unchanged from previous study. 2. Tree-in-bud configured opacities inferior left lingular typically seen with an acute infectious process. 3. Bibasilar consolidation and bilateral pleural effusion, left greater than right. Similar appearance previous study. 4. Calcific atherosclerotic disease aorta. 5. Hiatal hernia. 6. Chronic T11 compression fracture. D/ / Efraín Gomez / Efraín Gomez Interpreting Provider: Efraín Gomez - Attending Attestation I examined this patient and my medical decision-making was reviewed with the Resident Physician on 04/05/17. I agree with the documented findings, disposition and treatment plan as described except to the extent set forth below. Ms Leach is currently admitted for acute gastric volvulus s/p repair as well as resp failure due to aspiration. She remains moderate to high risk due to potential for worsening clinical status. Ms Leach has more respiratory distress last night and was placed on bipap. This has helped her breathing a lot today. She feels less dyspneic and more comfortable at rest. No fever. Repeat CT shows fluid still present but monitoring. Exam alert. More interactive today Mucus membranes dry Heart reg Lungs diminished I/P 1. Resp failure - improving with bipap. No bronch today. 2. DVT R arm Further diagnoses and plan as above.
[2017-04-05] MEDS ORDERED: Clinimix E 5%-15% SOLUTION 2,000 ML with MVI, adult with vitamin K 10 ML IVC SCH (17:00)
[2017-04-05] MEDS: Clinimix E 5%-15% SOLUTION 2,000 ML with MVI, adult with vitamin K 10 ML IVC SCH (17:40)
[2017-04-05] MEDS: *HR* Enoxaparin 80 MG/0.8 ML SYRINGE SQ SCH (18:03)
[2017-04-05] MEDS: D5% in Water 1,000 ML IVC SCH (20:00)
[2017-04-06] MEDS: Metoclopramide 10 MG/2 ML VIAL IVP SCH ×5 (00:06→23:57)
[2017-04-06] MEDS: *HR* Metoprolol 5 MG/5 ML VIAL IVP SCH ×5 (00:06→23:58)
[2017-04-06] MEDS: Insulin LISPRO 300 UNITS/3 ML VIAL SQ SCH ×6 (00:20→23:58)
[2017-04-06] MEDS: Acetylcysteine 10% 2 ML INHSOL IH SCH ×6 (00:31→20:46)
[2017-04-06] MEDS: Ipratropium/Albuterol Neb 3 ML IH SCH ×6 (00:31→20:46)
[2017-04-06 04:51] LABS: Hematocrit 27.1 % (35.3-44.9); Hemoglobin 8.2 g/dL (11.5-15.4); Mean Corpuscular HGB Conc 30.3 g/dL (31.6-35.5); Mean Corpuscular Hemoglobin 27.3 pg (28.0-33.3); Mean Corpuscular Volume 90.3 fL (83.0-100.0); Platelet Count 273 K/mcL (140-400); Red Cell Distribution Width 16.5 % (11.5-14.5)
[2017-04-06 05:03] LABS: BUN/Creatinine Ratio 59 (6-26); Blood Urea Nitrogen 38 mg/dL (8-23); Calcium 8.3 mg/dL (8.6-10.3); Carbon Dioxide 31 mEq/L (23-29); Chloride 108 mEq/L (98-107); Glucose 172 mg/dL (70-105); Magnesium 1.9 mg/dL (1.6-2.6); Osmolality,Calculated 311 (280-300); Potassium 3.4 mEq/L (3.5-5.1); Sodium 144 mEq/L (136-145); eGFR For African Americans > 60 (> 60); eGFR For Non-African Americans > 60 (> 60)
[2017-04-06] MEDS: *HR* Enoxaparin 80 MG/0.8 ML SYRINGE SQ SCH ×2 (06:04→17:16)
[2017-04-06] MEDS: Pantoprazole 40 MG VIAL IVP SCH ×2 (06:04→17:16)
[2017-04-06] MEDS: Budesonide/Formoterol 160/4.5 MDI IH SCH ×2 (07:37→20:47)
--- NOTE | 2017-04-06 08:44 | Internal Med Progress Note ---
<Hood Valle - Last Filed: 04/06/17 14:10> Date of Encounter: 04/06/17 Time of Encounter: 08:42 - Assessment and plan (1) Acute respiratory failure with hypoxia Current Visit: Yes Status: Acute Assessment and plan: - Acute respiratory failure with hypoxia secondary to aspiration of Gastrograffin for upper GI series with pleural effusion component -Repeat CTA this morning showing mild right and large left pleural effusion, both improved from previous. - Pt currently tolerating room air this AM, improved. - No reported home O2 requirement. 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 Plan to advance to feedings and wean TPN -Hypoactive bowel sounds. Reports flatus, no BM. Diet advancement per surgery - Pathology results: folcally ulcerated mucosa, acute on chronic inflammation, transmural necrosis with clear margins. 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 - Patient is hemodynamically stable and appears to be improving - Tolerating room air at this time - Completed an 8 day course of Zosyn during stay for possible aspiration Plan: Nothing by mouth CTA shows improvement of pleural effusions and increased airspace No plan for bronchoscopy as patient is clinically improving and CTA this morning is improved from previous We will continue to monitor at this time Duonebs (4) Aspiration into respiratory tract Current Visit: Yes Status: Acute Assessment and plan: - As above. Qualifiers: Encounter type: subsequent encounter Qualified Code(s): T17.908D - Unspecified foreign body in respiratory tract, part unspecified causing other injury, subsequent encounter (5) Tachycardia Current Visit: Yes Status: Acute Assessment and plan: - Noted atrial tachycardia with rates in 120s. -Heart rate has been well controlled since transfer from ICU in 70s and 80s - Per cardiology, start ASA when safe from a surgical perspective. Plan - Continue to monitor - Continue metoprolol 5mg q6hr (6) Hypertension Current Visit: Yes Status: Acute Assessment and plan: - Improved today. most recently 120/69 Continue current meds. Qualifiers: Hypertension type: essential hypertension Qualified Code(s): I10 - Essential (primary) hypertension (7) DVT (deep venous thrombosis) Current Visit: Yes Status: Acute Assessment and plan: - DVT as demonstrated on ultrasound in right upper extremity , brachial - PICC line in place, noted flow around clot - Discussed with PICC team, recommended keep PICC line in place as there is flow around and left UE has superficial venous thrombosis and high chance of DVT - Discussed anticoagulation and we will continue lovenox 80 mg BID - No symptoms, swelling measured at 32 cm, +3 cm from baseline done at PICC line placement. Plan Continue Lovenox Qualifiers: DVT location: upper extremity Affected thrombotic vein of extremity: brachial Chronicity: acute Laterality: right Qualified Code(s): I82.621 - Acute embolism and thrombosis of deep veins of right upper extremity (8) DVT prophylaxis Current Visit: Yes Status: Acute Assessment and plan: - Lovenox for DVT as above - Time Spent With Patient 25 - 35 minutes - Subjective Interval history: Patient was seen and examined at bedside this AM. She reports that overall she is doing well with no complaints of CP, nausea, vomiting, generalized pain. She does report flatus. No BM. She continues to complain of shortness of breath, however she does note that is improved since yesterday. Wet cough continues to be present. Oxygen saturation within normal limits. - Constitutional Vitals: Temp Pulse Resp BP Pulse Ox 97.7 F 78 16 143/73 94 04/06/17 06:27 04/06/17 06:27 04/06/17 07:39 04/06/17 06:27 04/06/17 07:39 General appearance: Present: A&O X 3, answers questions appropriately Exam: Gen.: Vitals noted. No acute distress. AAOx3. Sitting comfortably in bed. HEENT: PERRL/EOMI, oropharynx clear, Normocephalic, atraumatic, MMM Cardiac: RRR, no murmur, +S1/S2 Pulmonary: Diminished breath sounds bilaterally, otherwise CTA bilaterally, no wheezes, rales or rhonchi, equal chest expansion Abdomen: soft, Mildly tender over incision, BS noted, no guarding Extremities: no BLE edema, nontender calf, no cyanosis or clubbing Neuro: A&Ox3, moves all extremities, no focal deficits Psych: Appropriate mood and behavior Internal Medicine: Result - Labs CBC & Chem 7: 04/06/17 04:35 04/06/17 04:35 Labs: Short CBC 04/06/17 Range/Units 04:35 WBC 9.4 (4.3-11.1) K/mcL Hgb 8.2 L (11.5-15.4) g/dL Hct 27.1 L (35.3-44.9) % Plt Count 273 (140-400) K/mcL BMP 04/05/17 04/06/17 05:45 04:35 Sodium 144 144 Potassium 3.7 3.4 L Chloride 108 H 108 H Carbon Dioxide 29 31 H BUN 41 H 38 H Creatinine 0.62 0.64 Glucose 191 H 172 H Calcium 8.0 L 8.3 L - ABG Interpretation ABG results: ABG ABG pH 7.47 pH Units (7.32-7.45) H 04/05/17 10:35 ABG pCO2 40 mmHg (35-45) 04/05/17 10:35 ABG pO2 82 mmHg (85-104) L 04/05/17 10:35 ABG O2 Saturation 97 % (95-98) 04/05/17 10:35 PT/INR, D-dimer PT 11.5 Seconds (9.4-12.1) 04/01/17 19:25 - Impressions Impressions Chest CT 04/05/17 09:08 IMPRESSION: 1. Patchy ground-glass densities in the upper outer right lung may reflect alveolitis, unchanged from previous study. 2. Tree-in-bud configured opacities inferior left lingular typically seen with an acute infectious process. 3. Bibasilar consolidation and bilateral pleural effusion, left greater than right. Similar appearance previous study. 4. Calcific atherosclerotic disease aorta. 5. Hiatal hernia. 6. Chronic T11 compression fracture. D/ / Efraín Gomez / Efraín Gomez Interpreting Provider: Efraín Gomez - VTE Documentation of Mechanical Device: Intermittent pneumatic compression device Consult Discharge Plan - Plan Referrals: Memo Cody MD [Primary Care Provider] - <Justin Amor P - Last Filed: 04/06/17 15:34> Date of Encounter: 04/06/17 - Constitutional Vitals: Temp Pulse Resp BP Pulse Ox 97.7 F 87 18 165/73 99 04/06/17 06:27 04/06/17 15:00 04/06/17 15:00 04/06/17 15:00 04/06/17 15:00 Internal Medicine: Result - Labs CBC & Chem 7: 04/06/17 04:35 04/06/17 04:35 Labs: Short CBC 04/06/17 Range/Units 04:35 WBC 9.4 (4.3-11.1) K/mcL Hgb 8.2 L (11.5-15.4) g/dL Hct 27.1 L (35.3-44.9) % Plt Count 273 (140-400) K/mcL BMP 04/06/17 04:35 Sodium 144 Potassium 3.4 L Chloride 108 H Carbon Dioxide 31 H BUN 38 H Creatinine 0.64 Glucose 172 H Calcium 8.3 L - ABG Interpretation ABG results: ABG ABG pH 7.47 pH Units (7.32-7.45) H 04/05/17 10:35 ABG pCO2 40 mmHg (35-45) 04/05/17 10:35 ABG pO2 82 mmHg (85-104) L 04/05/17 10:35 ABG O2 Saturation 97 % (95-98) 04/05/17 10:35 PT/INR, D-dimer PT 11.5 Seconds (9.4-12.1) 04/01/17 19:25 - Impressions Impressions Abdomen X-Ray 04/06/17 09:39 IMPRESSION: 1. Normal bowel gas pattern without evidence of obstruction. 2. There has been placement of a PEG tube and possibly a J-tube. D/ / 04/06/2017 11:00:33 Clement Palm MD / miguelina Interpreting Provider: Clement Palm MD - Attending Attestation I examined this patient and my medical decision-making was reviewed with the Resident Physician. I agree with the documented findings, disposition and treatment plan as described except to the extent set forth below. Briefly, 81/female Multiple comorbid issue. Agree with assessment and plan above. Appreciated surgery/pulmonology/GI input Plan: Speech therapy evaluation tomorrow. Physical therapy/occupational therapy evaluation. Need to start work in terms of placement. Had a long conversation with the patient's daughter this afternoon and plan explained at length. All questions answered.
[2017-04-06] MEDS: Saliva Stimulant 100ml BOTTLE PO PRN (08:55)
[2017-04-06] MEDS ORDERED: Furosemide 40 MG TABLET PO SCH (09:00)
--- NOTE | 2017-04-06 10:55 | General Surgery Progress Note ---
Date of Encounter: 04/06/17 Time of Encounter: 10:00 - Assessment and Plan (1) Hiatal hernia Current Visit: Yes Status: Acute 04/06/2017 POD #8 as below. Final pathology noted Stomach, partial gastrectomy; Focally ulcerated mucosa, acute and chronic inflammation and focal transmural necrosis; Margins viable.Ms Mackenzie reports some improvement in her abdominal discomfort. Anne Marie reports her abdominal discomfort is controlled. She was OOB to chair for aprox 5 hours yesterday. Incisions are clean, dry, and intact without surrounding erythema or cellulitis. Her drain sites (detailed below) are unremarkable. Her bowel sounds are absent. She denies passing flatus or having a bowel movement. Her bedside RN, the patient did have a cup of water sitting at the bedside for swabs. The patient reportedly drink the entire cup of water this a.m. Her lung sounds audibly without a stethoscope are wet sounding. I did review this with the primary team. Plan: 1. Patient must bathe daily. Reviewed with patient. Await return of bowel function 2. Strictly NPO. from a surgical persepctive, we have no plans to initiate p.o. until her G-tube drainage has decreased; however, given aspiration risks the patient is recommended to complete a video fluoroscopy swallowing exam prior to any initiation of PO. 3. Continue peg tube to gravity. 4. Continue J-tube with tube feeds. OK to give meds through J-tube (Only if crushed and dissolved to liquid status. Flush with 200 ml after med administration. 5. PT/OT for mobilization and discharge planning 6. Continue Aggressive pulmonary toileting per primary team/pulmonary 7. Continue DVT prophylaxis per primary team 8. Continue Protonix 40 mg BID IV for GI prophylaxis 9. TPN per primary team to be d/c;'d today 10. Scheduled Toradol for discomfort management. Attempt to limit narcotic use due to constant heating factors. Scheduled Dulcolax Per rectum Surgery will continue to follow along and make recommendations. Left J-tube: TF running at goals (Osmolite 1.2 jimenez) 55; OK to give meds through J-tube (Only if crushed and dissolved to liquid status. Flush with 200 ml after med administration. Peg tube: To gravity. Noted aprox 250 ml output since Midnight. Daily Wound and Drain care: Wash abdomen daily with antibacterial soap. Cover drain sites with a split cause. Leave midline abdominal incision open to air or cover with a dry dressing for comfort. Tape to secure. 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 Segmental gastric necrosis. Distal esophageal necrosis) Procedure: #1 reduction of gastric volvulus #2 repair of hiatal hernia #3 debridement and primary repair of distal esophagus #4 resection of gastric necrosis (tangential resection of full-thickness necrotic ulcers times 4) #5 gastrostomy tube #6 jejunostomy tube Anesthesia: SIL Surgeon: Kayden Castillo Estimated blood loss (cc): 200 (2) DVT (deep venous thrombosis) Current Visit: Yes Status: Acute Per Primary Qualifiers: DVT location: upper extremity Affected thrombotic vein of extremity: brachial Chronicity: acute Laterality: right Qualified Code(s): I82.621 - Acute embolism and thrombosis of deep veins of right upper extremity (3) Aspiration into respiratory tract Current Visit: Yes Status: Acute Management per primary medicine. Currently pt is on O2 per nasal cannula. Of note, pt is reported to have drank a cup of water sitting at bedside this am and is noted to have some adventitious breath sounds. Recommendations for swallow eval prior to any initiation of diet. Maintain strict NPO at this time per surgery; will not plan to initiate any PO until G-tube output is adequate. Qualifiers: Encounter type: subsequent encounter Qualified Code(s): T17.908D - Unspecified foreign body in respiratory tract, part unspecified causing other injury, subsequent encounter Subjective Patient reports: no new complaints, feels better, still having pain, pain is less, voiding w/o difficulty (per child), flatus, no bowel movement, afebrile Objective Vital Signs - Last 8 Hours Temp Pulse Resp BP Pulse Ox 04/06/17 07:39 16 94 04/06/17 06:27 97.7 F 78 18 143/73 94 04/06/17 03:49 98.0 F 105 18 90 04/06/17 03:31 14 Intake and Output 04/05/17 04/06/17 04/06/17 23:59 07:59 15:59 Intake Total 120 / 120 60 / 60 Output Total 2650 / 2650 615 / 615 250 / 250 Balance -2530 / -2530 -555 / -555 -250 / -250 Intake: Oral 0 / 0 0 / 0 Free Water Intake Amount 120 / 120 60 / 60 Output: Catheter 2200 / 2200 600 / 600 Wound Drainage 450 / 450 15 / 15 250 / 250 Left Upper Abdomen 15 / 15 250 / 250 left upper abdomen 2 450 / 450 Other: Weight 66.9 kg Blood Glucose* 139 180 Patient Weight 04/06/17 23:59 Weight 66.9 kg - General physical appearance no distress, moderate pain - ENT normal mucosa, atraumatic, normocephalic - Neck Neck exam: trachea midline, no venous distension - Respiratory other (Audible without stethoscope, patient with moist course breath sounds. She is decreased bilaterally and course crackles on auscultation.) - Cardiovascular Cardiovascular exam: Present: RRR, murmurs - Abdomen Abdomen: Present: bowel sounds present, soft, tender (Expected postoperative), wound (G-tube with approximately 250 ML's bilious material; G-tube with tube feeds running; MARILOU with small amount of SS drainage) Hernia: none - Incision Incision: Present: clean and dry - Integumentary no abnormal pigmentation - Neurologic normal coordination, normal sensation - Musculoskeletal normal posture - Psychiatric oriented to time, oriented to person, oriented to place - Labs 04/06/17 04:35 04/06/17 04:35 Diabetes panel 04/06/17 Range/Units 04:35 Sodium 144 (136-145) mEq/L Potassium 3.4 L (3.5-5.1) mEq/L Chloride 108 H (98-107) mEq/L Carbon Dioxide 31 H (23-29) mEq/L BUN 38 H (8-23) mg/dL Creatinine 0.64 (0.60-1.20) mg/dL Glucose 172 H (70-105) mg/dL Calcium 8.3 L (8.6-10.3) mg/dL Calcium panel 04/06/17 Range/Units 04:35 Calcium 8.3 L (8.6-10.3) mg/dL Phosphorus 3.0 (2.7-4.5) mg/dL Pituitary panel 04/06/17 Range/Units 04:35 Sodium 144 (136-145) mEq/L Potassium 3.4 L (3.5-5.1) mEq/L Chloride 108 H (98-107) mEq/L Carbon Dioxide 31 H (23-29) mEq/L BUN 38 H (8-23) mg/dL Creatinine 0.64 (0.60-1.20) mg/dL Glucose 172 H (70-105) mg/dL Calcium 8.3 L (8.6-10.3) mg/dL Adrenal panel 04/06/17 Range/Units 04:35 Sodium 144 (136-145) mEq/L Potassium 3.4 L (3.5-5.1) mEq/L Chloride 108 H (98-107) mEq/L Carbon Dioxide 31 H (23-29) mEq/L BUN 38 H (8-23) mg/dL Creatinine 0.64 (0.60-1.20) mg/dL Glucose 172 H (70-105) mg/dL Calcium 8.3 L (8.6-10.3) mg/dL - VTE Documentation of Mechanical Device: Intermittent pneumatic compression device Consult Discharge Plan - Plan Referrals: Memo Cody MD [Primary Care Provider] -
[2017-04-06] MEDS: Ketorolac 15 MG/ML VIAL IVP SCH ×3 (13:11→23:58)
[2017-04-06] MEDS: Bisacodyl 10 MG RECTAL SUPPOSITORY RC SCH (13:12)
[2017-04-06] MEDS ORDERED: Acetaminophen IV 1,000 MG/100 ML INFUS..BTL IVPB ONE (15:00)
--- NOTE | 2017-04-06 18:58 | Pulmonology Progress Note ---
Date of Encounter: 04/07/17 Time of Encounter: 15:00 Assessment and Plan (1) Aspiration into respiratory tract Current Visit: Yes Status: Acute Patient had aspiration of gastric contents earlier part of the admission with secretion pooling in the left main bronchus which was leading left lower lobe collapse with part of left upper lobe involved was scheduled for bronchoscopy today , patient needed overnight BIPAP which she tolerated well , today morning patient was clinically better and exam was much better it was decided to hold off the bronchoscopy i repeated the CT scan w/o contrast which showed expanded left lower lobe and left upper lobe with not much secretions in both left lung lobar airways and the Right lung lobar airways , the left sided pleural effusion is slightly diminished spoke with patient and primary team will cancel the bronchoscopy for today , patient can put can be put back on anticoagulation .Will follow . 04/06 Patient continued to do well with oxygen requirements is coming down . To continue diuresis to follow up bicarbonate and creatinine Qualifiers: Encounter type: subsequent encounter Qualified Code(s): T17.908D - Unspecified foreign body in respiratory tract, part unspecified causing other injury, subsequent encounter (2) Acute respiratory failure with hypoxia Current Visit: Yes Status: Acute Multifactorial with bilateral pleural effusion and bilateral lower lobe atelectasis ,aspiration pneumonitis wean down FIO2 to Keep SPO2> 92% .To continue diuresis as primary team . Patient Oxygen requirements are coming down . Patient will need O2 on discharge (3) 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 Current Visit: Yes Status: Acute supported by surgery . Patient is on tube feeds now . Will need swallow evaluation as patient wants to drink (4) DVT (deep venous thrombosis) Current Visit: Yes Status: Acute To continue anticogulation as primary team Qualifiers: DVT location: upper extremity Affected thrombotic vein of extremity: brachial Chronicity: acute Laterality: right Qualified Code(s): I82.621 - Acute embolism and thrombosis of deep veins of right upper extremity Subjective Principal diagnosis: aspiration Interval history: 81 year old female had a recent aspiration of gastrograffin last week developed aspiration pneumonia and pneumonitis was on antibiotics completed the course because her O2 requirements was not improving CTA was repeated on 04/03 which showed no evidence of PE but had secretions in the left main stem bronchus with left lower lobe and upper lobe volume loss patient was scheduled for bronchoscopy today , patient was on BIPAP overnight now she is getting transitioned to high flow nasal cannula 6 litres patient said she is feeling lot better today after the BIPAP machine , has cough but not much sputum production,denies any chest pain or undue shortness of breadth denies any other constitutional symptoms pulmonary was asked to follow to evaluate left main stem obstruction with volume loss. With BIPAP and Bronchopulmonary hygiene the left main stem bronchus was opened according to patient the symptoms are lot better denies any chest pain or tightness wants to drink water . Objective PUL Vital signs: Last Vital Signs Temp 97.7 F 04/06/17 06:27 Pulse 87 04/06/17 15:00 Resp 16 04/06/17 15:53 BP 165/73 04/06/17 15:00 Pulse Ox 94 04/06/17 15:53 Auscultation: left: diminished breath sounds, bilateral: wheezes (scattered wheezes ) Results - Laboratory Findings CBC and BMP: 04/07/17 05:29 04/07/17 05:29 ABG ABG pH 7.47 pH Units (7.32-7.45) H 04/05/17 10:35 ABG pCO2 40 mmHg (35-45) 04/05/17 10:35 ABG pO2 82 mmHg (85-104) L 04/05/17 10:35 ABG O2 Saturation 97 % (95-98) 04/05/17 10:35 PT/INR, D-dimer PT 11.5 Seconds (9.4-12.1) 04/01/17 19:25 Abnormal lab findings: Abnormal lab results RBC 3.00 M/mcL (3.82-4.97) L 04/06/17 04:35 Hgb 8.2 g/dL (11.5-15.4) L 04/06/17 04:35 Hct 27.1 % (35.3-44.9) L 04/06/17 04:35 MCH 27.3 pg (28.0-33.3) L 04/06/17 04:35 MCHC 30.3 g/dL (31.6-35.5) L 04/06/17 04:35 RDW 16.5 % (11.5-14.5) H 04/06/17 04:35 Neutrophils # 9.5 K/mcL (1.6-8.9) H 04/05/17 05:45 Nucleated RBCs/100 WBC 0.2 /100 WBC (0) H 04/05/17 05:45 APTT 59.7 Seconds (26.0-36.0) H 04/02/17 12:50 Heparin Anti-Xa, Unfract 1.00 IU/mL (0.30-0.70) H* 04/02/17 03:27 ABG pH 7.47 pH Units (7.32-7.45) H 04/05/17 10:35 ABG pO2 82 mmHg (85-104) L 04/05/17 10:35 ABG HCO3 29 mEq/L (21-27) H 04/05/17 10:35 ABG Total CO2 30 mEq/L (20-26) H 04/05/17 10:35 ABG Base Excess 5 mEq/L (-2 to 3) H 04/05/17 10:35 VBG pH 7.44 pH Units (7.32-7.42) H 03/28/17 04:28 VBG pO2 119 mmHg (25-50) H 03/28/17 04:19 VBG HCO3 28 mEq/L (21-27) H 03/28/17 04:19 Potassium 3.4 mEq/L (3.5-5.1) L 04/06/17 04:35 Chloride 108 mEq/L (98-107) H 04/06/17 04:35 Carbon Dioxide 31 mEq/L (23-29) H 04/06/17 04:35 BUN 38 mg/dL (8-23) H 04/06/17 04:35 BUN/Creatinine Ratio 59 (6-26) H 04/06/17 04:35 Glucose 172 mg/dL (70-105) H 04/06/17 04:35 POC Glucose 226 (58-89) H 04/06/17 16:18 Calculated Osmolality 311 (280-300) H 04/06/17 04:35 Calcium 8.3 mg/dL (8.6-10.3) L 04/06/17 04:35 Troponin I 0.10 ng/mL (< 0.04) H* 03/28/17 04:02 B-Natriuretic Peptide 252 pg/mL (Less than 100) H 03/26/17 10:56 Prealbumin 12.4 mg/dL (17.0-34.0) L 03/27/17 04:27 - Clinical Findings Intake & Output: Intake & Output 04/06/17 04/06/17 04/06/17 07:59 15:59 23:59 Intake Total 60 60 60 60 Output Total 615 / 615 1100 / 1100 Balance -555 / -555 -1040 / -1040 Weight 66.9 kg - VTE Documentation of Mechanical Device: Intermittent pneumatic compression device Consult Discharge Plan - Plan Referrals: Memo Cody MD [Primary Care Provider] -
--- NOTE | 2017-04-06 19:19 | Electrocardiograph Report ---
[address] [address] Test Date: 2017-04-06 Pat Name: Anne Marie Leach Department: 111 Room: 2NE16 Gender: F Is Analyst: SUSANA : 1935 Requested By: Justin Amor Order Number: [id number] Reading MD: Abbey Daniel Measurements Intervals [place] Rate: 121 P: 67 KS: 145 QRS: 17 QRSD: 75 T: 67 QT: 314 QTc: 386 Interpretive Statements SINUS TACHYCARDIA WITH OCCASIONAL SUPRAVENTRICULAR PREMATURE COMPLEXES POSSIBLE RIGHT VENTRICULAR CONDUCTION DELAY NONSPECIFIC ST & T-WAVE ABNORMALITY ABNORMAL RHYTHM ECG Electronically Signed On 04-06-2017 19:17:27 EST by Abbey Daniel
[2017-04-07] MEDS: Acetylcysteine 10% 2 ML INHSOL IH SCH ×4 (00:02→11:16)
[2017-04-07] MEDS: Ipratropium/Albuterol Neb 3 ML IH SCH ×7 (00:02→23:58)
[2017-04-07] MEDS: Insulin LISPRO 300 UNITS/3 ML VIAL SQ SCH ×6 (00:12→22:42)
[2017-04-07] MEDS ORDERED: *HR* Alteplase (Cathflo) 2 MG VIAL IVP ONE (01:37)
[2017-04-07 05:41] LABS: Hematocrit 30.6 % (35.3-44.9); Hemoglobin 8.9 g/dL (11.5-15.4); Mean Corpuscular HGB Conc 29.1 g/dL (31.6-35.5); Mean Corpuscular Hemoglobin 27.1 pg (28.0-33.3); Mean Corpuscular Volume 93.3 fL (83.0-100.0); Mean Platelet Volume 10.4 fL (9.4-12.4); Platelet Count 280 K/mcL (140-400); Red Blood Count 3.28 M/mcL (3.82-4.97); Red Cell Distribution Width 16.6 % (11.5-14.5)
[2017-04-07 05:42] LABS: Basophils % 0.4 %; Eosinophils # 0.1 K/mcL (0.0-0.6); Eosinophils % 1.8 %; Hemoglobin 8.9 g/dL (11.5-15.4); Immature Granulocytes % 0.5 % (0-4); Lymphocytes # 0.7 K/mcL (0.6-4.6); Lymphocytes % 12.7 %; Mean Corpuscular HGB Conc 29.7 g/dL (31.6-35.5); Mean Corpuscular Hemoglobin 27.4 pg (28.0-33.3); Mean Corpuscular Volume 92.3 fL (83.0-100.0); Mean Platelet Volume 10.7 fL (9.4-12.4); Monocytes # 0.5 K/mcL (0.0-1.3); Monocytes % 8.7 %; Neutrophils # 4.3 K/mcL (1.6-8.9); Platelet Count 266 K/mcL (140-400); Red Blood Count 3.25 M/mcL (3.82-4.97); Red Cell Distribution Width 16.4 % (11.5-14.5); Segmented Neutrophils % 75.9 %
[2017-04-07 06:13] LABS: BUN/Creatinine Ratio 54 (6-26); Blood Urea Nitrogen 38 mg/dL (8-23); Calcium 8.4 mg/dL (8.6-10.3); Carbon Dioxide 32 mEq/L (23-29); Chloride 110 mEq/L (98-107); Glucose 209 mg/dL (70-105); Osmolality,Calculated 317 (280-300); Potassium 3.7 mEq/L (3.5-5.1); Sodium 146 mEq/L (136-145); eGFR For African Americans > 60 (> 60); eGFR For Non-African Americans > 60 (> 60)
[2017-04-07] MEDS: Pantoprazole 40 MG VIAL IVP SCH ×2 (06:50→17:38)
[2017-04-07] MEDS: Metoclopramide 10 MG/2 ML VIAL IVP SCH ×3 (06:51→17:38)
[2017-04-07] MEDS: *HR* Enoxaparin 80 MG/0.8 ML SYRINGE SQ SCH (06:51)
[2017-04-07] MEDS: *HR* Metoprolol 5 MG/5 ML VIAL IVP SCH ×3 (06:51→17:38)
[2017-04-07] MEDS: Ketorolac 15 MG/ML VIAL IVP SCH (06:51)
[2017-04-07] MEDS: Budesonide/Formoterol 160/4.5 MDI IH SCH ×2 (07:59→19:56)
[2017-04-07] MEDS ORDERED: Ketorolac 15 MG/ML VIAL IVP ONE (08:43)
[2017-04-07] MEDS ORDERED: *HR* LORazepam 2 MG/ML VIAL IVP ONE (09:10)
--- NOTE | 2017-04-07 09:14 | Internal Med Progress Note ---
<Hood Valle - Last Filed: 04/07/17 14:14> Date of Encounter: 04/07/17 Time of Encounter: 09:11 - Assessment and plan (1) Acute respiratory failure with hypoxia Current Visit: Yes Status: Acute Assessment and plan: - Acute respiratory failure with hypoxia secondary to aspiration of Gastrograffin for upper GI series with pleural effusion component -Repeat CTA showing mild right and large left pleural effusion, both improved from previous. - Pt currently tolerating 2L with O2 sats in high 90s this AM. - No reported home O2 requirement. - Increased dyspnea today. - Pulmonology following, appreciate recommendations - Patient is -11 L since admission Plan - Discussed with pulmonary, do not anticipate bronchoscopy she is clinically improving with diuretics - Continue Lasix, will go back to IV as she is not taking PO meds, BiPAP when necessary - Also suspect some anxiety component of SOB, improved with Ativan 0.5mg. - Management as below (2) 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 Current Visit: Yes Status: Acute Assessment and plan: - POD #9 status post #1 reduction of gastric volvulus #2 repair of hiatal hernia #3 debridement and primary repair of distal esophagus #4 resection of gastric necrosis (tangential resection of full-thickness necrotic ulcers times 4 ) #5 gastrostomy tube #6 jejunostomy tube - Management per surgery team - PICC line, TPN discontinued. Gastric tube feedings at recommendation. - G-tube clamped this morning however patient developed pain and increased SOB after approximately 1 hour was unclamped. -Hypoactive bowel sounds. Reports flatus, no BM. Diet advancement per surgery - Pathology results: folcally ulcerated mucosa, acute on chronic inflammation, transmural necrosis with clear margins. Plan - Further management per surgery - Feeds per gastric tube, reglan, Zofran, pain control - Pt is to remain NPO until gastric tube output decreases. Recommend Upper GI series before PO intake. 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 - Patient is hemodynamically stable and appears to be improving - Tolerating room air at this time - Completed an 8 day course of Zosyn during stay for possible aspiration Plan: Nothing by mouth, gastric feeding tubes CTA shows improvement of pleural effusions and increased airspace No plan for bronchoscopy as patient is clinically improving and CTA this morning is improved from previous We will continue to monitor at this time Duonebs (4) Aspiration into respiratory tract Current Visit: Yes Status: Acute Assessment and plan: - As above. Qualifiers: Encounter type: subsequent encounter Qualified Code(s): T17.908D - Unspecified foreign body in respiratory tract, part unspecified causing other injury, subsequent encounter (5) Tachycardia Current Visit: Yes Status: Acute Assessment and plan: - Noted atrial tachycardia with rates in 120s. -Heart rate has been well controlled since transfer from ICU in 70s and 80s - Per cardiology, start ASA when safe from a surgical perspective. Plan - Continue to monitor - Continue metoprolol 5mg q6hr (6) Hypertension Current Visit: Yes Status: Acute Assessment and plan: - Improved today. most recently 142/62 Continue current meds. Qualifiers: Hypertension type: essential hypertension Qualified Code(s): I10 - Essential (primary) hypertension (7) DVT (deep venous thrombosis) Current Visit: Yes Status: Acute Assessment and plan: - DVT as demonstrated on ultrasound in right upper extremity , brachial - PICC line in place, noted flow around clot - Discussed with PICC team, recommended keep PICC line in place as there is flow around and left UE has superficial venous thrombosis and high chance of DVT - Discussed anticoagulation and we will continue lovenox 80 mg BID - No symptoms, swelling measured at 32 cm, +3 cm from baseline done at PICC line placement. Plan Continue Lovenox Qualifiers: DVT location: upper extremity Affected thrombotic vein of extremity: brachial Chronicity: acute Laterality: right Qualified Code(s): I82.621 - Acute embolism and thrombosis of deep veins of right upper extremity (8) Abdominal pain Current Visit: Yes Status: Acute Assessment and plan: - New complaint of abdominal pain located in LLQ as well as left hip pain following clamping of G-tube. Most likely source of pain, unclamped following complaint - Patient has been receiving Toradol scheduled for pain - Xray of hip revealed no acute process, degenerative changes. - Will give course of oxycodone liquid 0.25mL for pain - UA ordered by surgery and pending Plan - Pain control as above - Patient reported improved pain following Xray. - Possible MSk vs G-tube - Will follow and monitor. Low threshold for CT abdomen if pain persists. Qualifiers: Abdominal location: unspecified location Qualified Code(s): R10.9 - Unspecified abdominal pain (9) DVT prophylaxis Current Visit: Yes Status: Acute Assessment and plan: - Lovenox for DVT as above - Time Spent With Patient 25 - 35 minutes - Subjective Interval history: Patient was seen and examined at bedside this AM. She states that she is having left hip pain starting just this morning and has no previous hip pain problems. Also complaining of increased SOB today. O2 saturation in high 90s on 2 L O2. No other complaints of other pains, nausea, vomiting. - Constitutional Vitals: Temp Pulse Resp BP Pulse Ox 97.8 F 96 18 142/75 98 04/07/17 07:23 04/07/17 07:23 04/07/17 07:59 04/07/17 07:23 04/07/17 07:59 General appearance: Present: A&O X 3, answers questions appropriately Exam: Gen.: Vitals noted. No acute distress. AAOx3 HEENT: PERRL/EOMI, oropharynx clear, Normocephalic, atraumatic, MMM Cardiac: RRR, no murmur, +S1/S2 Pulmonary: Rales in lower lobes, diminished on left. Otherwise CTA, equal chest expansion Abdomen: soft, mild tenderness, BS noted, no guarding MSK: ROM intact, no joint swelling noted Extremities: very mild BLE edema, nontender calf, no cyanosis or clubbing Neuro: A&Ox3, moves all extremities, no focal deficits Psych: Appropriate mood and behavior Internal Medicine: Result - Labs CBC & Chem 7: 04/07/17 05:29 04/07/17 05:29 Labs: Short CBC 04/07/17 04/07/17 Range/Units 05:29 05:29 WBC 5.8 5.7 (4.3-11.1) K/mcL Hgb 8.9 L 8.9 L (11.5-15.4) g/dL Hct 30.6 L 30.0 L (35.3-44.9) % Plt Count 280 266 (140-400) K/mcL Neutrophils # 4.3 (1.6-8.9) K/mcL BMP 04/07/17 05:29 Sodium 146 H Potassium 3.7 Chloride 110 H Carbon Dioxide 32 H BUN 38 H Creatinine 0.70 Glucose 209 H Calcium 8.4 L - ABG Interpretation ABG results: ABG ABG pH 7.47 pH Units (7.32-7.45) H 04/05/17 10:35 ABG pCO2 40 mmHg (35-45) 04/05/17 10:35 ABG pO2 82 mmHg (85-104) L 04/05/17 10:35 ABG O2 Saturation 97 % (95-98) 04/05/17 10:35 PT/INR, D-dimer PT 11.5 Seconds (9.4-12.1) 04/01/17 19:25 - Impressions Impressions Abdomen X-Ray 04/06/17 09:39 IMPRESSION: 1. Normal bowel gas pattern without evidence of obstruction. 2. There has been placement of a PEG tube and possibly a J-tube. D/ / 04/06/2017 11:00:33 Clement Palm MD / miguelina Interpreting Provider: Clement Palm MD - VTE Documentation of Mechanical Device: Intermittent pneumatic compression device Consult Discharge Plan - Plan Referrals: Memo Cody MD [Primary Care Provider] - <Justin Amor - Last Filed: 04/07/17 16:55> Date of Encounter: 04/07/17 - Constitutional Vitals: Temp Pulse Resp BP Pulse Ox 98.1 F 96 16 97/57 95 04/07/17 15:44 04/07/17 15:44 04/07/17 15:44 04/07/17 15:44 04/07/17 15:44 Internal Medicine: Result - Labs CBC & Chem 7: 04/07/17 05:29 04/07/17 05:29 Labs: Short CBC 04/07/17 04/07/17 Range/Units 05:29 05:29 WBC 5.8 5.7 (4.3-11.1) K/mcL Hgb 8.9 L 8.9 L (11.5-15.4) g/dL Hct 30.6 L 30.0 L (35.3-44.9) % Plt Count 280 266 (140-400) K/mcL Neutrophils # 4.3 (1.6-8.9) K/mcL BMP 04/07/17 05:29 Sodium 146 H Potassium 3.7 Chloride 110 H Carbon Dioxide 32 H BUN 38 H Creatinine 0.70 Glucose 209 H Calcium 8.4 L - ABG Interpretation ABG results: ABG ABG pH 7.47 pH Units (7.32-7.45) H 04/05/17 10:35 ABG pCO2 40 mmHg (35-45) 04/05/17 10:35 ABG pO2 82 mmHg (85-104) L 04/05/17 10:35 ABG O2 Saturation 97 % (95-98) 04/05/17 10:35 PT/INR, D-dimer PT 11.5 Seconds (9.4-12.1) 04/01/17 19:25 - Impressions Impressions Hip X-Ray 04/07/17 08:43 IMPRESSION: Stable degenerative changes of the hip joints. No acute osseous abnormality. D/ / Pam Pineda MD / Pam Pineda MD Interpreting Provider: Pam Pineda MD - Attending Attestation I examined this patient and my medical decision-making was reviewed with the Resident Physician. I agree with the documented findings, disposition and treatment plan as described except to the extent set forth below. We will follow the recommendations from surgery. Pulmonology input appreciated. If patient continues to improve then she needs to be in extended care facility/ long term facility.
[2017-04-07] MEDS: Furosemide 40 MG/4 ML VIAL IVP SCH (09:34)
[2017-04-07] MEDS: Saliva Stimulant 100ml BOTTLE PO PRN ×3 (09:37→19:13)
--- NOTE | 2017-04-07 12:58 | General Surgery Progress Note ---
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 -Tube outputs reviewed with Dr. Castillo, with appropriate drainage -Clamp trial of G-TUBE for four hours and then G-TUBE to gravity for four hours attempted this AM for 1-2hr tim. Then coincided with suprapubic pain, so RN unclamped G-tube and place to gravity AT 0845 due to pain. Pt occasionally citing hip pain, but also abdomen in suprapubic area it appears. Pt afebrile and hemodynamically stable. If fever develops, recommend UA to r/o catheter-associated UTI. Ok to d/c child, if pt able to tolerate, per primary -Serial abdominal exams -Remain NPO -Continue J-tube with tube feeds -Will eventually need video fluoroscopy swallowing exam prior to any initiation of PO. -Continue PT/OT -Ambulate with assistance, encourage deep breathing -Maintain head of bed elevated at 30* Daily Wound and Drain care: Wash abdomen daily with antibacterial soap. Cover drain sites with a split cause. Leave midline abdominal incision open to air or cover with a dry dressing for comfort. Tape to secure. (2) Aspiration into respiratory tract Current Visit: Yes Status: Acute s/p aspiration with Gastograffin 04/03 CTA shown left effusion with evidence of aspiration through L tracheobroncial tree. Patient's oxygen requirements coming down Management per primary and pulmonology. Qualifiers: Encounter type: subsequent encounter Qualified Code(s): T17.908D - Unspecified foreign body in respiratory tract, part unspecified causing other injury, subsequent encounter (3) New onset atrial fibrillation Current Visit: Yes Status: Acute Cardiology consulted. (4) Severe protein-calorie malnutrition Current Visit: Yes Status: Chronic Per primary team. (5) DVT (deep venous thrombosis) Current Visit: Yes Status: Acute Pt. Positive for DVT in the Right Upper Extremity in the Brachial Vein and Positive for SVT in the Left Upper Extremity Cephalic Vein. Management per primary team. Qualifiers: DVT location: upper extremity Affected thrombotic vein of extremity: brachial Chronicity: acute Laterality: right Qualified Code(s): I82.621 - Acute embolism and thrombosis of deep veins of right upper extremity (6) Numbness Current Visit: Yes Status: Acute Pt states Hx of [place] syndrome 6 years ago. Per primary. (7) DVT prophylaxis Current Visit: Yes Status: Acute Management per primary. Subjective Patient reports: feels better, afebrile Narrative: No acute events overnight and no complaints early AM. Clamp trial of G-TUBE was attempted AM for 1-2hr tim. RN unclamped G-tube and place to gravity AT 0845 due to pain. Pt intermittently citing hip pain, but also abdomen in suprapubic area. Pt afebrile and hemodynamically stable. Objective Vital Signs - Last 8 Hours Temp Pulse Resp BP Pulse Ox 04/07/17 11:34 98 F 106 16 138/99 98 04/07/17 11:16 18 99 04/07/17 07:59 18 98 04/07/17 07:23 97.8 F 96 17 142/75 98 Intake and Output 04/06/17 04/07/17 04/07/17 23:59 07:59 15:59 Intake Total 90 / 90 0 / 0 Output Total 1400 / 1400 20 / 20 Balance -1310 / -1310 -20 / -20 Intake: Oral 0 / 0 Free Water Intake Amount 90 / 90 Output: Gastric Tube Lavage Amount 100 / 100 LUQ1 100 / 100 Catheter 1300 / 1300 Wound Drainage 20 / 20 Left Upper Abdomen 20 / 20 Other: Meal npo Percent of Meal Consumed 0% Weight 63.8 kg Blood Glucose* 157 218 192 Patient Weight 04/07/17 23:59 Weight 63.8 kg - General physical appearance moderate pain, other (no change in baseline mentation ) - Eyes normal ocular movement - Respiratory other rales: bilateral - Cardiovascular Cardiovascular exam: Present: regular rhythm ( +S1, S2 ). Absent: tachycardia - Abdomen Abdomen: Present: bowel sounds present, soft, tender (mild tenderness post-op tenderness) - Incision Incision: Present: draining (tube drainage assesses with Dr. Castillo, appropriate. ) - Genitourinary other (pt child in place, clear yellow liquid ) - Labs 04/07/17 05:29 04/07/17 05:29 Diabetes panel 04/07/17 Range/Units 05:29 Sodium 146 H (136-145) mEq/L Potassium 3.7 (3.5-5.1) mEq/L Chloride 110 H (98-107) mEq/L Carbon Dioxide 32 H (23-29) mEq/L BUN 38 H (8-23) mg/dL Creatinine 0.70 (0.60-1.20) mg/dL Glucose 209 H (70-105) mg/dL Calcium 8.4 L (8.6-10.3) mg/dL Calcium panel 04/07/17 Range/Units 05:29 Calcium 8.4 L (8.6-10.3) mg/dL Pituitary panel 04/07/17 Range/Units 05:29 Sodium 146 H (136-145) mEq/L Potassium 3.7 (3.5-5.1) mEq/L Chloride 110 H (98-107) mEq/L Carbon Dioxide 32 H (23-29) mEq/L BUN 38 H (8-23) mg/dL Creatinine 0.70 (0.60-1.20) mg/dL Glucose 209 H (70-105) mg/dL Calcium 8.4 L (8.6-10.3) mg/dL Adrenal panel 04/07/17 Range/Units 05:29 Sodium 146 H (136-145) mEq/L Potassium 3.7 (3.5-5.1) mEq/L Chloride 110 H (98-107) mEq/L Carbon Dioxide 32 H (23-29) mEq/L BUN 38 H (8-23) mg/dL Creatinine 0.70 (0.60-1.20) mg/dL Glucose 209 H (70-105) mg/dL Calcium 8.4 L (8.6-10.3) mg/dL - VTE Documentation of Mechanical Device: Intermittent pneumatic compression device Consult Discharge Plan - Plan Referrals: Memo Cody MD [Primary Care Provider] - <Kayden Castillo - Last Filed: 04/08/17 07:43> Date of Encounter: 04/08/17 Objective Vital Signs - Last 8 Hours Temp Pulse Resp BP Pulse Ox 04/08/17 07:00 97.3 F L 103 18 140/84 96 04/08/17 04:02 18 92 04/08/17 04:00 97.9 F 105 19 125/55 94 04/07/17 23:59 16 99 Intake and Output 04/07/17 04/07/17 04/08/17 15:59 23:59 07:59 Intake Total 0 / 0 800 / 800 1300 / 1300 Output Total 1145 / 1145 1000 / 1000 960 / 960 Balance -1145 / -1145 -200 / -200 340 / 340 Intake: Oral 0 / 0 0 / 0 0 / 0 Tube Feeding 650 / 650 1300 / 1300 Free Water Intake Amount 150 / 150 Output: Catheter 900 / 900 900 / 900 900 / 900 Gastric Drainage 225 / 225 100 / 100 50 / 50 Wound Drainage 20 / 20 0 / 0 10 / 10 Left Upper Abdomen 20 / 20 left upper abdomen 2 0 / 0 0 / 0 10 Other: Meal npo Percent of Meal Consumed 0% Weight 59.8 kg Blood Glucose* 192 139 150 Patient Weight 04/08/17 23:59 Weight 59.8 kg - Labs 04/08/17 05:10 04/08/17 05:10 Diabetes panel 04/08/17 Range/Units 05:10 Sodium 149 H (136-145) mEq/L Potassium 3.5 (3.5-5.1) mEq/L Chloride 111 H (98-107) mEq/L Carbon Dioxide 31 H (23-29) mEq/L BUN 34 H (8-23) mg/dL Creatinine 0.68 (0.60-1.20) mg/dL Glucose 178 H (70-105) mg/dL Calcium 8.3 L (8.6-10.3) mg/dL Calcium panel 04/08/17 Range/Units 05:10 Calcium 8.3 L (8.6-10.3) mg/dL Pituitary panel 04/08/17 Range/Units 05:10 Sodium 149 H (136-145) mEq/L Potassium 3.5 (3.5-5.1) mEq/L Chloride 111 H (98-107) mEq/L Carbon Dioxide 31 H (23-29) mEq/L BUN 34 H (8-23) mg/dL Creatinine 0.68 (0.60-1.20) mg/dL Glucose 178 H (70-105) mg/dL Calcium 8.3 L (8.6-10.3) mg/dL Adrenal panel 04/08/17 Range/Units 05:10 Sodium 149 H (136-145) mEq/L Potassium 3.5 (3.5-5.1) mEq/L Chloride 111 H (98-107) mEq/L Carbon Dioxide 31 H (23-29) mEq/L BUN 34 H (8-23) mg/dL Creatinine 0.68 (0.60-1.20) mg/dL Glucose 178 H (70-105) mg/dL Calcium 8.3 L (8.6-10.3) mg/dL - Attending Attestation I examined this patient and my medical decision-making was reviewed with the Resident Physician. I agree with the documented findings, disposition and treatment plan as described except to the extent set forth below. The patient is doing well and tolerating her tube feedings. She did have bowel movement. The nasogastric tube is out. I will start 4 hours cyclic clamping of the gastrostomy tube trying to get the biliary pancreatic secretions to move past the jejunostomy site. She is very fortunate to have survived and I am very pleased with her overall clinical course Kayden Castillo MD FACS
[2017-04-07] MEDS: *HR* Enoxaparin 60 MG/0.6 ML SYRINGE SQ SCH (17:38)
[2017-04-07] MEDS: Bisacodyl 10 MG RECTAL SUPPOSITORY RC SCH (17:39)
[2017-04-07] MEDS: OXYCODONE Oral CONC 10 MG/0.5 ML ORAL.SYG SL PRN (17:39)
[2017-04-07 20:27] LABS: Bilirubin,Urine Negative (Negative); Blood,Urine Moderate (Negative); Color,Urine Yellow (Yellow); Glucose,Urine (UA) Normal (Normal); Ketones,Urine Negative (Negative); Leukocyte Esterase,Urine Small (Negative); Nitrite,Urine Negative (Negative); Protein,Urine 30 mg/dL (Neg-Trace); Specific Gravity,Urine 1.016 (1.010-1.025); Urobilinogen,Urine Normal (Normal)
[2017-04-07 20:29] LABS: Hyaline Casts,Urine None Seen per lpf (None-Few); RBC,Urine 30-50 per hpf (0-3); Squamous Epithelial Cell,Urine Many per lpf (None-Few)
[2017-04-07 20:37] LABS: Clarity,Urine Slightly Hazy (Clear)
[2017-04-07 20:51] LABS: Bacteria,Urine Few per hpf (None-Few); Renal Epithelial Cells,Urine Few per hpf (None-Few)
[2017-04-08] MEDS: Insulin LISPRO 300 UNITS/3 ML VIAL SQ SCH ×6 (00:21→22:08)
[2017-04-08] MEDS: *HR* Metoprolol 5 MG/5 ML VIAL IVP SCH ×6 (00:22→22:29)
[2017-04-08] MEDS: Metoclopramide 10 MG/2 ML VIAL IVP SCH ×4 (00:22→20:56)
[2017-04-08] MEDS: Ipratropium/Albuterol Neb 3 ML IH SCH ×6 (04:01→23:23)
[2017-04-08] MEDS: Pantoprazole 40 MG VIAL IVP SCH ×2 (05:40→20:56)
[2017-04-08] MEDS: *HR* Enoxaparin 60 MG/0.6 ML SYRINGE SQ SCH ×2 (05:40→20:55)
[2017-04-08 05:43] LABS: Hematocrit 26.8 % (35.3-44.9); Hemoglobin 8.1 g/dL (11.5-15.4); Mean Corpuscular HGB Conc 30.2 g/dL (31.6-35.5); Mean Corpuscular Hemoglobin 27.6 pg (28.0-33.3); Mean Corpuscular Volume 91.2 fL (83.0-100.0); Mean Platelet Volume 10.6 fL (9.4-12.4); Platelet Count 269 K/mcL (140-400); Red Blood Count 2.94 M/mcL (3.82-4.97); Red Cell Distribution Width 16.1 % (11.5-14.5)
[2017-04-08 06:16] LABS: BUN/Creatinine Ratio 50 (6-26); Blood Urea Nitrogen 34 mg/dL (8-23); Calcium 8.3 mg/dL (8.6-10.3); Carbon Dioxide 31 mEq/L (23-29); Chloride 111 mEq/L (98-107); Glucose 178 mg/dL (70-105); Osmolality,Calculated 320 (280-300); Potassium 3.5 mEq/L (3.5-5.1); Sodium 149 mEq/L (136-145); eGFR For African Americans > 60 (> 60); eGFR For Non-African Americans > 60 (> 60)
[2017-04-08] MEDS: Budesonide/Formoterol 160/4.5 MDI IH SCH ×2 (07:50→20:06)
[2017-04-08] MEDS: OXYCODONE Oral CONC 10 MG/0.5 ML ORAL.SYG SL PRN ×3 (08:26→18:49)
[2017-04-08] MEDS ORDERED: Potassium Chloride 40 MEQ, Lidocaine 1% 2 ML in D5% in Water 500 ML IVPB ONE (10:02)
--- NOTE | 2017-04-08 11:25 | General Surgery Progress Note ---
<Adeline Bingham Shannan - Last Filed: 04/08/17 16:15> Date of Encounter: 04/08/17 Time of Encounter: 11:00 - Assessment and Plan (1) Hiatal hernia Current Visit: Yes Status: Acute 04/06/2017 POD #10 as below. Final pathology noted Stomach, partial gastrectomy ; Focally ulcerated mucosa, acute and chronic inflammation and focal transmural necrosis; Margins viable.Ms Mackenzie reports some improvement in her abdominal discomfort. Anne Marie reports she feels better today. She was OOB to [facility] today. Incisions are clean, dry, and intact without surrounding erythema or cellulitis. Her drain sites (detailed below) are unremarkable. Her bowel sounds are hypoactive. She continues to deny passing flatus or having a bowel movement. Plan: 1. Patient must bathe daily. Reviewed with patient. Await return of bowel function 2. Strictly NPO. 3. Clamp G-tube for 4 hours. Check residuals; If less than 200 ml leave clamped. Remain NPO: given aspiration risks the patient is recommended to complete a video fluoroscopy swallowing exam prior to any initiation of PO. ST is following 4. Continue J-tube with tube feeds. OK to give meds through J-tube (Only if crushed and dissolved to liquid status. Flush with 200 ml after med administration. 5. PT/OT for mobilization and discharge planning (possibly Wednesday pending clinical course) 6. Continue Aggressive pulmonary toileting per primary team/pulmonary 7. Continue DVT prophylaxis per primary team 8. Continue Protonix 40 mg BID IV for GI prophylaxis 9. TF at goal 10. Scheduled Toradol for discomfort management. Attempt to limit narcotic use due to constant heating factors. Scheduled Dulcolax Per rectum Surgery will continue to follow along and make recommendations. Left J-tube: TF running at goals (Osmolite 1.2 jimenez) 55; OK to give meds through J-tube (Only if crushed and dissolved to liquid status. Flush with 200 ml after med administration. Peg tube: clamped Daily Wound and Drain care: Wash abdomen daily with antibacterial soap. Cover drain sites with a split cause. Leave midline abdominal incision open to air or cover with a dry dressing for comfort. Tape to secure. 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 Segmental gastric necrosis. Distal esophageal necrosis) Procedure: #1 reduction of gastric volvulus #2 repair of hiatal hernia #3 debridement and primary repair of distal esophagus #4 resection of gastric necrosis (tangential resection of full-thickness necrotic ulcers times 4) #5 gastrostomy tube #6 jejunostomy tube Anesthesia: SIL Surgeon: Kayden Castillo Estimated blood loss (cc): 200 (2) DVT (deep venous thrombosis) Current Visit: Yes Status: Acute Per Primary Qualifiers: DVT location: upper extremity Affected thrombotic vein of extremity: brachial Chronicity: acute Laterality: right Qualified Code(s): I82.621 - Acute embolism and thrombosis of deep veins of right upper extremity (3) Aspiration into respiratory tract Current Visit: Yes Status: Acute Management per primary medicine. Currently pt is on O2 per nasal cannula. Of note, pt is reported to have drank a cup of water sitting at bedside this am and is noted to have some adventitious breath sounds. Recommendations for swallow eval prior to any initiation of diet. Maintain strict NPO at this time per surgery; Qualifiers: Encounter type: subsequent encounter Qualified Code(s): T17.908D - Unspecified foreign body in respiratory tract, part unspecified causing other injury, subsequent encounter Subjective Patient reports: no new complaints, feels better, still having pain, pain is less, voiding w/o difficulty (per child), no flatus, no bowel movement, afebrile Objective Vital Signs - Last 8 Hours Temp Pulse Resp BP Pulse Ox 04/08/17 11:00 124 18 164/97 98 04/08/17 07:50 18 99 04/08/17 07:00 97.3 F L 103 18 140/84 96 04/08/17 04:02 18 92 04/08/17 04:00 97.9 F 105 19 125/55 94 Intake and Output 04/07/17 04/08/17 04/08/17 23:59 07:59 15:59 Intake Total 800 / 800 1300 / 1300 Output Total 1000 / 1000 960 / 960 Balance -200 / -200 340 / 340 Intake: Oral 0 / 0 0 / 0 Tube Feeding 650 / 650 1300 / 1300 Free Water Intake Amount 150 / 150 Output: Catheter 900 / 900 900 / 900 Gastric Drainage 100 / 100 50 / 50 Wound Drainage 0 / 0 10 / 10 left upper abdomen 2 0 0 Other: Weight 59.8 kg Blood Glucose* 139 150 203 Patient Weight 04/08/17 23:59 Weight 59.8 kg - General physical appearance no distress, no pain - Eyes normal ocular movement - ENT atraumatic, normocephalic - Neck Neck exam: trachea midline, no venous distension - Respiratory other (Course crackles breath sounds bilateral) - Cardiovascular Cardiovascular exam: Present: tachycardia - Abdomen Abdomen: Present: bowel sounds present, soft, tender (Expected postoperative), wound (G-tube, J-tube, and MARILOU site WNL) Hernia: none - Integumentary no growths, no abnormal pigmentation - Neurologic normal sensation - Musculoskeletal normal posture - Psychiatric oriented to person, oriented to place - Labs 04/08/17 05:10 04/08/17 05:10 Diabetes panel 04/08/17 Range/Units 05:10 Sodium 149 H (136-145) mEq/L Potassium 3.5 (3.5-5.1) mEq/L Chloride 111 H (98-107) mEq/L Carbon Dioxide 31 H (23-29) mEq/L BUN 34 H (8-23) mg/dL Creatinine 0.68 (0.60-1.20) mg/dL Glucose 178 H (70-105) mg/dL Calcium 8.3 L (8.6-10.3) mg/dL Calcium panel 04/08/17 Range/Units 05:10 Calcium 8.3 L (8.6-10.3) mg/dL Pituitary panel 04/08/17 Range/Units 05:10 Sodium 149 H (136-145) mEq/L Potassium 3.5 (3.5-5.1) mEq/L Chloride 111 H (98-107) mEq/L Carbon Dioxide 31 H (23-29) mEq/L BUN 34 H (8-23) mg/dL Creatinine 0.68 (0.60-1.20) mg/dL Glucose 178 H (70-105) mg/dL Calcium 8.3 L (8.6-10.3) mg/dL Adrenal panel 04/08/17 Range/Units 05:10 Sodium 149 H (136-145) mEq/L Potassium 3.5 (3.5-5.1) mEq/L Chloride 111 H (98-107) mEq/L Carbon Dioxide 31 H (23-29) mEq/L BUN 34 H (8-23) mg/dL Creatinine 0.68 (0.60-1.20) mg/dL Glucose 178 H (70-105) mg/dL Calcium 8.3 L (8.6-10.3) mg/dL - VTE Documentation of Mechanical Device: Intermittent pneumatic compression device Consult Discharge Plan - Plan Referrals: Memo Cody MD [Primary Care Provider] - <JonathanKayden T - Last Filed: 04/09/17 12:21> Date of Encounter: 04/08/17 Objective Vital Signs - Last 8 Hours Temp Pulse Resp BP Pulse Ox 04/09/17 11:51 97.4 F L 114 17 124/60 98 04/09/17 11:01 17 94 04/09/17 07:56 17 90 04/09/17 07:10 98.1 F 97 18 121/55 93 Intake and Output 04/08/17 04/09/17 04/09/17 23:59 07:59 15:59 Intake Total 1084 / 1084 0 / 0 0 / 0 Output Total 1023 / 1023 850 / 850 1100 / 1100 Balance 61 / 61 -850 / -850 -1100 / -1100 Intake: Oral 0 / 0 0 / 0 0 / 0 Tube Feeding 884 / 884 Free Water Intake Amount 200 / 200 Output: Gastric Tube Lavage Amount 100 / 100 LUQ1 100 / 100 Catheter 1000 / 1000 750 / 750 1100 / 1100 Wound Drainage left upper abdomen 2 Other: Meal NPO Percent of Meal Consumed 0% Weight 59.8 kg Blood Glucose* 169 130 72 Patient Weight 04/09/17 23:59 Weight 59.8 kg - Labs 04/09/17 03:26 04/09/17 03:26 Diabetes panel 04/09/17 Range/Units 03:26 Sodium 149 H (136-145) mEq/L Potassium 3.8 (3.5-5.1) mEq/L Chloride 112 H (98-107) mEq/L Carbon Dioxide 29 (23-29) mEq/L BUN 34 H (8-23) mg/dL Creatinine 0.76 (0.60-1.20) mg/dL Glucose 182 H (70-105) mg/dL Calcium 8.2 L (8.6-10.3) mg/dL Calcium panel 04/09/17 Range/Units 03:26 Calcium 8.2 L (8.6-10.3) mg/dL Pituitary panel 04/09/17 Range/Units 03:26 Sodium 149 H (136-145) mEq/L Potassium 3.8 (3.5-5.1) mEq/L Chloride 112 H (98-107) mEq/L Carbon Dioxide 29 (23-29) mEq/L BUN 34 H (8-23) mg/dL Creatinine 0.76 (0.60-1.20) mg/dL Glucose 182 H (70-105) mg/dL Calcium 8.2 L (8.6-10.3) mg/dL Adrenal panel 04/09/17 Range/Units 03:26 Sodium 149 H (136-145) mEq/L Potassium 3.8 (3.5-5.1) mEq/L Chloride 112 H (98-107) mEq/L Carbon Dioxide 29 (23-29) mEq/L BUN 34 H (8-23) mg/dL Creatinine 0.76 (0.60-1.20) mg/dL Glucose 182 H (70-105) mg/dL Calcium 8.2 L (8.6-10.3) mg/dL - Attending Attestation I examined this patient and my medical decision-making was reviewed with the Resident Physician. I agree with the documented findings, disposition and treatment plan as described except to the extent set forth below. The patient is seen and evaluated him milligrams the resident. She is doing quite well after reduction of necrotic gastric volvulus and debridement of necrotic esophagus with reconstruction. Jejunostomy tube feedings are progressing to goal rate. Nasogastric tube is out and we will sequentially clamped the G-tube trying to get pancreatic and biliary secretions to go through the small bowel. Kayden Castillo MD FACS
[2017-04-08] MEDS: Furosemide 40 MG/4 ML VIAL IVP SCH ×2 (12:59→20:55)
--- NOTE | 2017-04-08 14:21 | Internal Med Progress Note ---
<Hood Valle - Last Filed: 04/08/17 14:18> Date of Encounter: 04/08/17 Time of Encounter: 14:18 - Assessment and plan (1) Acute respiratory failure with hypoxia Current Visit: Yes Status: Acute Assessment and plan: - Acute respiratory failure with hypoxia secondary to aspiration of Gastrograffin for upper GI series with pleural effusion component -Repeat CTA showing mild right and large left pleural effusion, both improved from previous. - Pt currently tolerating 2L with O2 sats in high 90s this AM. - No reported home O2 requirement. - Dyspnea improved with diuresis - Pulmonology following, appreciate recommendations - Patient is -12 L since admission Plan - Discussed with pulmonary, do not anticipate bronchoscopy she is clinically improving with diuretics - Continue Lasix, will go back to IV as she is not taking PO meds, BiPAP when necessary. Carefully monitor of kidney function - Also suspect some anxiety component of SOB, improved with Ativan 0.5mg. 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 Gastric tube feedings at recommendation. - G-tube clamped again this morning. Tolerating intermittent clamping so far. Will monitor. Management per surgery -Hypoactive bowel sounds. Reports flatus, 1 BM. Diet advancement per surgery - Pathology results: folcally ulcerated mucosa, acute on chronic inflammation, transmural necrosis with clear margins. Plan - Further management per surgery - Feeds per gastric tube, reglan, Zofran, pain control - Pt is to remain NPO until gastric tube output decreases. Recommend Upper GI series before PO intake. 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 - Patient is hemodynamically stable and appears to be improving - Tolerating room air at this time - Completed an 8 day course of Zosyn during stay for possible aspiration Plan: Nothing by mouth, gastric feeding tubes CTA shows improvement of pleural effusions and increased airspace No plan for bronchoscopy as patient is clinically improving and CTA this morning is improved from previous We will continue to monitor at this time Duonebs (4) Aspiration into respiratory tract Current Visit: Yes Status: Acute Assessment and plan: - As above. Qualifiers: Encounter type: subsequent encounter Qualified Code(s): T17.908D - Unspecified foreign body in respiratory tract, part unspecified causing other injury, subsequent encounter (5) Tachycardia Current Visit: Yes Status: Acute Assessment and plan: - Noted atrial tachycardia with rates in 120s. -Heart rate has been well controlled since transfer from ICU in 90s, low 100s - Per cardiology, start ASA when safe from a surgical perspective. Plan - Continue to monitor - Continue metoprolol 5mg q6hr (6) Hypertension Current Visit: Yes Status: Acute Assessment and plan: - Improved today. most recently 140/84 Continue current meds. Qualifiers: Hypertension type: essential hypertension Qualified Code(s): I10 - Essential (primary) hypertension (7) DVT (deep venous thrombosis) Current Visit: Yes Status: Acute Assessment and plan: - DVT as demonstrated on ultrasound in right upper extremity , brachial - PICC line in place, noted flow around clot - Discussed with PICC team, recommended keep PICC line in place as there is flow around and left UE has superficial venous thrombosis and high chance of DVT - Discussed anticoagulation and we will continue lovenox 80 mg BID - No symptoms, swelling measured at 32 cm, +3 cm from baseline done at PICC line placement. Plan Continue Lovenox Qualifiers: DVT location: upper extremity Affected thrombotic vein of extremity: brachial Chronicity: acute Laterality: right Qualified Code(s): I82.621 - Acute embolism and thrombosis of deep veins of right upper extremity (8) Abdominal pain Current Visit: Yes Status: Acute Assessment and plan: - New complaint of abdominal pain located in LLQ as well as left hip pain following clamping of G-tube. Most likely source of pain, unclamped following complaint - Patient has been receiving Toradol scheduled for pain, liquid oxycodone with good relief. - Xray of hip revealed no acute process, degenerative changes. - UA ordered by surgery and pending Plan - Pain control as above - Possible MSk vs G-tube. Patient complaint of left thigh nodule improved today - Will follow and monitor. Low threshold for CT abdomen if pain persists. Qualifiers: Abdominal location: unspecified location Qualified Code(s): R10.9 - Unspecified abdominal pain (9) DVT prophylaxis Current Visit: Yes Status: Acute Assessment and plan: - Lovenox for DVT as above - Time Spent With Patient less than 15 minutes - Subjective Interval history: Patient was seen and examined at bedside this AM. She states her SOB and left hip pain are much improved today. She has no new complaints but states that she is excited to start a diet. Denies any pain, nausea, vomiting. Had 1 BM. - Constitutional Vitals: Temp Pulse Resp BP Pulse Ox 97.3 F L 124 18 164/97 97 04/08/17 07:00 04/08/17 11:00 04/08/17 11:22 04/08/17 11:00 04/08/17 11:22 General appearance: Present: A&O X 3, answers questions appropriately Exam: Gen.: Vitals noted. No acute distress. AAOx3 HEENT: PERRL/EOMI, oropharynx clear, Normocephalic, atraumatic, MMM Cardiac: RRR, no murmur, +S1/S2 Pulmonary: Mild diffuse rales, much improved from previous. Diminished diffusely , equal chest expansion Abdomen: bandage intact over abdomen. No infection signs. soft, nontender, BS noted, no guarding MSK: ROM intact, no joint swelling noted Extremities: no BLE edema, nontender calf, no cyanosis or clubbing. Small nodule on left thigh, mobile. Possible lipoma Neuro: A&Ox3, moves all extremities, no focal deficits Psych: Appropriate mood and behavior Internal Medicine: Result - Labs CBC & Chem 7: 04/08/17 05:10 04/08/17 05:10 Labs: Short CBC 04/08/17 Range/Units 05:10 WBC 6.3 (4.3-11.1) K/mcL Hgb 8.1 L (11.5-15.4) g/dL Hct 26.8 L (35.3-44.9) % Plt Count 269 (140-400) K/mcL BMP 04/08/17 05:10 Sodium 149 H Potassium 3.5 Chloride 111 H Carbon Dioxide 31 H BUN 34 H Creatinine 0.68 Glucose 178 H Calcium 8.3 L Urine 04/07/17 Range/Units 19:45 Urine Color Yellow (Yellow) Urine Clarity Slightly Hazy (Clear) Urine pH 7.0 (5.0-8.0) pH Units Ur Specific [place] 1.016 (1.010-1.025) Urine Protein 30 H (Neg-Trace) mg/dL Urine Glucose (UA) Normal (Normal) mg/dL - ABG Interpretation ABG results: ABG ABG pH 7.47 pH Units (7.32-7.45) H 04/05/17 10:35 ABG pCO2 40 mmHg (35-45) 04/05/17 10:35 ABG pO2 82 mmHg (85-104) L 04/05/17 10:35 ABG O2 Saturation 97 % (95-98) 04/05/17 10:35 PT/INR, D-dimer PT 11.5 Seconds (9.4-12.1) 04/01/17 19:25 - Impressions Impressions Chest X-Ray 04/08/17 12:21 IMPRESSION: 1. Improved aeration at the left lung base with persistent opacification suggesting atelectasis or pneumonia with left pleural fluid. 2. Otherwise, stable chest. D/ / 04/08/2017 14:09:38 Didier Saez MD / [email or web address] Interpreting Provider: Didier Saez MD - VTE Documentation of Mechanical Device: Intermittent pneumatic compression device Consult Discharge Plan - Plan Referrals: Memo Cody MD [Primary Care Provider] - <Justin Amor - Last Filed: 04/08/17 16:05> Date of Encounter: 04/08/17 - Constitutional Vitals: Temp Pulse Resp BP Pulse Ox 97.3 F L 116 18 122/68 95 04/08/17 07:00 04/08/17 14:55 04/08/17 15:35 04/08/17 14:55 04/08/17 15:35 Internal Medicine: Result - Labs CBC & Chem 7: 04/08/17 05:10 04/08/17 05:10 Labs: Short CBC 04/08/17 Range/Units 05:10 WBC 6.3 (4.3-11.1) K/mcL Hgb 8.1 L (11.5-15.4) g/dL Hct 26.8 L (35.3-44.9) % Plt Count 269 (140-400) K/mcL BMP 04/08/17 05:10 Sodium 149 H Potassium 3.5 Chloride 111 H Carbon Dioxide 31 H BUN 34 H Creatinine 0.68 Glucose 178 H Calcium 8.3 L Urine 04/07/17 Range/Units 19:45 Urine Color Yellow (Yellow) Urine Clarity Slightly Hazy (Clear) Urine pH 7.0 (5.0-8.0) pH Units Ur Specific [place] 1.016 (1.010-1.025) Urine Protein 30 H (Neg-Trace) mg/dL Urine Glucose (UA) Normal (Normal) mg/dL - ABG Interpretation ABG results: ABG ABG pH 7.47 pH Units (7.32-7.45) H 04/05/17 10:35 ABG pCO2 40 mmHg (35-45) 04/05/17 10:35 ABG pO2 82 mmHg (85-104) L 04/05/17 10:35 ABG O2 Saturation 97 % (95-98) 04/05/17 10:35 PT/INR, D-dimer PT 11.5 Seconds (9.4-12.1) 04/01/17 19:25 - Impressions Impressions Chest X-Ray 04/08/17 12:21 IMPRESSION: 1. Improved aeration at the left lung base with persistent opacification suggesting atelectasis or pneumonia with left pleural fluid. 2. Otherwise, stable chest. D/ / 04/08/2017 14:09:38 Didier Saez MD / ashutosh Interpreting Provider: Didier Saez MD - Attending Attestation I examined this patient and my medical decision-making was reviewed with the Resident Physician. I agree with the documented findings, disposition and treatment plan as described except to the extent set forth below.
--- NOTE | 2017-04-08 17:18 | Electrocardiograph Report ---
[place] [id number] Test Date: 2017-04-07 Pat Name: Anne Marie Leach Department: 111 Room: [id number] Gender: F Machine Sander: CRISTIANO : 1935 Requested By: Justin Amor Order Number: [id number] Reading MD: Sarmad Daniel Measurements Intervals [place] Rate: 113 P: 28 [place]: 145 QRS: 14 QRSD: 77 T: 64 QT: 343 QTc: 410 Interpretive Statements SINUS TACHYCARDIA WITH FREQUENT SUPRAVENTRICULAR PREMATURE COMPLEXES ABNORMAL RHYTHM ECG Electronically Signed On 04-08-2017 17:16:04 EST by Sarmad Daniel
[2017-04-08] MEDS ORDERED: 0.9 % Sodium Chloride 1,000 ML IV ONE (23:30)
[2017-04-09] MEDS: Metoclopramide 10 MG/2 ML VIAL IVP SCH ×4 (00:07→17:46)
[2017-04-09] MEDS: Insulin LISPRO 300 UNITS/3 ML VIAL SQ SCH ×6 (00:08→22:41)
[2017-04-09] MEDS ORDERED: *HR* Alteplase (Cathflo) 2 MG VIAL IVP ONE (02:49)
[2017-04-09] MEDS: Ipratropium/Albuterol Neb 3 ML IH SCH ×6 (03:34→23:11)
[2017-04-09] MEDS: OXYCODONE Oral CONC 10 MG/0.5 ML ORAL.SYG SL PRN ×2 (03:56→15:56)
[2017-04-09 03:57] LABS: Basophils % 0.1 %; Eosinophils % 0.2 %; Hematocrit 29.2 % (35.3-44.9); Hemoglobin 8.6 g/dL (11.5-15.4); Immature Granulocytes % 0.3 % (0-4); Lymphocytes # 1.6 K/mcL (0.6-4.6); Lymphocytes % 16.3 %; Mean Corpuscular HGB Conc 29.5 g/dL (31.6-35.5); Mean Corpuscular Volume 91.8 fL (83.0-100.0); Mean Platelet Volume 10.9 fL (9.4-12.4); Monocytes # 0.8 K/mcL (0.0-1.3); Monocytes % 8.1 %; Platelet Count 296 K/mcL (140-400); Red Blood Count 3.18 M/mcL (3.82-4.97); Red Cell Distribution Width 16.2 % (11.5-14.5)
[2017-04-09 03:59] LABS: Neutrophils # 7.4 K/mcL (1.6-8.9)
[2017-04-09 04:12] LABS: BUN/Creatinine Ratio 45 (6-26); Blood Urea Nitrogen 34 mg/dL (8-23); Calcium 8.2 mg/dL (8.6-10.3); Carbon Dioxide 29 mEq/L (23-29); Chloride 112 mEq/L (98-107); Glucose 182 mg/dL (70-105); Osmolality,Calculated 320 (280-300); Potassium 3.8 mEq/L (3.5-5.1); Sodium 149 mEq/L (136-145); eGFR For African Americans > 60 (> 60); eGFR For Non-African Americans > 60 (> 60)
[2017-04-09] MEDS: *HR* Enoxaparin 60 MG/0.6 ML SYRINGE SQ SCH ×2 (05:19→17:46)
[2017-04-09] MEDS: Pantoprazole 40 MG VIAL IVP SCH (05:19)
[2017-04-09] MEDS: *HR* Metoprolol 5 MG/5 ML VIAL IVP SCH ×3 (05:19→17:46)
[2017-04-09] MEDS: Budesonide/Formoterol 160/4.5 MDI IH SCH ×2 (07:55→20:05)
[2017-04-09] MEDS: Bisacodyl 10 MG RECTAL SUPPOSITORY RC SCH ×2 (08:36→21:46)
[2017-04-09] MEDS: Furosemide 40 MG/4 ML VIAL IVP SCH (08:36)
--- NOTE | 2017-04-09 10:49 | Internal Med Progress Note ---
<Hood Valle - Last Filed: 04/09/17 14:38> Date of Encounter: 04/09/17 Time of Encounter: 10:47 - Assessment and plan (1) Acute respiratory failure with hypoxia Current Visit: Yes Status: Acute Assessment and plan: - Acute respiratory failure with hypoxia secondary to aspiration of Gastrograffin for upper GI series with pleural effusion component -Repeat CTA showing mild right and large left pleural effusion, both improved from previous. - Pt currently tolerating 4L with O2 sats in high 90s this AM. - No reported home O2 requirement. - Dyspnea improved with diuresis - Pulmonology following, appreciate recommendations - Patient is -15 L since admission Plan - Discussed with pulmonary, do not anticipate bronchoscopy she is clinically improving with diuretics - Continue Lasix, will go back to IV as she is not taking PO meds, BiPAP when necessary. Carefully monitor of kidney function - Also suspect some anxiety component of SOB, improved with Ativan 0.5mg. 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 Gastric tube feedings at recommendation. - G-tube clamped again this morning. Tolerating intermittent clamping so far. Will monitor. Management per surgery - Night team reports j-tube being clogged. Surgery team aware -Hypoactive bowel sounds. Reports flatus, 1 BM. Diet advancement per surgery - Pathology results: folcally ulcerated mucosa, acute on chronic inflammation, transmural necrosis with clear margins. Plan - Further management per surgery - Feeds per gastric tube, reglan, Zofran, pain control - Pt is to remain NPO until gastric tube output decreases. Recommend Upper GI series before PO intake. 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 - Patient is hemodynamically stable and appears to be improving - Tolerating intermittent O2 via NC and room air at this time - Completed an 8 day course of Zosyn during stay for possible aspiration Plan: Nothing by mouth, gastric feeding tubes CTA shows improvement of pleural effusions and increased airspace No plan for bronchoscopy as patient is clinically improving and CTA this morning is improved from previous We will continue to monitor at this time Duonebs (4) Aspiration into respiratory tract Current Visit: Yes Status: Acute Assessment and plan: - As above. Qualifiers: Encounter type: subsequent encounter Qualified Code(s): T17.908D - Unspecified foreign body in respiratory tract, part unspecified causing other injury, subsequent encounter (5) Tachycardia Current Visit: Yes Status: Acute Assessment and plan: - Noted atrial tachycardia with rates in 120s. -Heart rate has been well controlled since transfer from ICU in 90s, low 100s - Per cardiology, start ASA when safe from a surgical perspective. Plan - Continue to monitor - Continue metoprolol 5mg q6hr (6) Hypertension Current Visit: Yes Status: Acute Assessment and plan: - Improved today. most recently 121/55 Continue current meds. Qualifiers: Hypertension type: essential hypertension Qualified Code(s): I10 - Essential (primary) hypertension (7) DVT (deep venous thrombosis) Current Visit: Yes Status: Acute Assessment and plan: - DVT as demonstrated on ultrasound in right upper extremity, brachial - PICC line in place, noted flow around clot - Discussed with PICC team, recommended keep PICC line in place as there is flow around and left UE has superficial venous thrombosis and high chance of DVT - Discussed anticoagulation and we will continue lovenox 80 mg BID - No symptoms, swelling measured at 32 cm, +3 cm from baseline done at PICC line placement. Plan Continue Lovenox Qualifiers: DVT location: upper extremity Affected thrombotic vein of extremity: brachial Chronicity: acute Laterality: right Qualified Code(s): I82.621 - Acute embolism and thrombosis of deep veins of right upper extremity (8) Abdominal pain Current Visit: Yes Status: Acute Assessment and plan: - New complaint of abdominal pain located in LLQ as well as left hip and thigh pain following clamping of G-tube. - Patient has been receiving Toradol scheduled for pain, liquid oxycodone with good relief. - Xray of hip revealed no acute process, degenerative changes. - UA ordered by surgery and pending Plan - Pain control as above - CT of left thigh and hip ordered. Positive for possible contusion of left thigh and small fat and bowel containing left inguinal hernia. - Surgery aware. - Will continue pain control. Qualifiers: Abdominal location: unspecified location Qualified Code(s): R10.9 - Unspecified abdominal pain (9) DVT prophylaxis Current Visit: Yes Status: Acute Assessment and plan: - Lovenox for DVT as above - Time Spent With Patient 25 - 35 minutes - Subjective Interval history: Patient was seen and examined at bedside this AM. She states her SOB and left hip pain are much improved today. She has no new complaints but states that her left hip pain is starting to come back. Worse with movement of hip. Had 1 BM yesterday. Admits to flatus but denies nausea, vomiting. - Constitutional Vitals: Temp Pulse Resp BP Pulse Ox 98.1 F 97 17 121/55 90 04/09/17 07:10 04/09/17 07:10 04/09/17 07:56 04/09/17 07:10 04/09/17 07:56 General appearance: Present: A&O X 3, answers questions appropriately Exam: Gen.: Vitals noted. No acute distress. AAOx3 HEENT: PERRL/EOMI, oropharynx clear, Normocephalic, atraumatic, MMM Cardiac: RRR, no murmur, +S1/S2 Pulmonary:Continued diffuse mild rales. equal chest expansion Abdomen: soft, nontender, BS noted, no guarding. BS hypoactive. Dressing intact without signs of infection MSK: ROM intact, no joint swelling noted. Pain with flexion of left hip. Extremities: no BLE edema, nontender calf, no cyanosis or clubbing Neuro: A&Ox3, moves all extremities, no focal deficits Psych: Appropriate mood and behavior Internal Medicine: Result - Labs CBC & Chem 7: 04/09/17 03:26 04/09/17 03:26 Labs: Short CBC 04/09/17 Range/Units 03:26 WBC 9.8 D (4.3-11.1) K/mcL Hgb 8.6 L (11.5-15.4) g/dL Hct 29.2 L (35.3-44.9) % Plt Count 296 (140-400) K/mcL Neutrophils # 7.4 (1.6-8.9) K/mcL BMP 04/09/17 03:26 Sodium 149 H Potassium 3.8 Chloride 112 H Carbon Dioxide 29 BUN 34 H Creatinine 0.76 Glucose 182 H Calcium 8.2 L - ABG Interpretation ABG results: ABG ABG pH 7.47 pH Units (7.32-7.45) H 04/05/17 10:35 ABG pCO2 40 mmHg (35-45) 04/05/17 10:35 ABG pO2 82 mmHg (85-104) L 04/05/17 10:35 ABG O2 Saturation 97 % (95-98) 04/05/17 10:35 PT/INR, D-dimer PT 11.5 Seconds (9.4-12.1) 04/01/17 19:25 - Impressions Impressions Chest X-Ray 04/08/17 12:21 IMPRESSION: 1. Improved aeration at the left lung base with persistent opacification suggesting atelectasis or pneumonia with left pleural fluid. 2. Otherwise, stable chest. D/ / 04/08/2017 14:09:38 Didier Saez MD / [email or web address] Interpreting Provider: Didier Saez MD - VTE Documentation of Mechanical Device: Intermittent pneumatic compression device Consult Discharge Plan - Plan Referrals: Memo Cody MD [Primary Care Provider] - <Justin Amor P - Last Filed: 04/09/17 15:48> Date of Encounter: 04/09/17 - Constitutional Vitals: Temp Pulse Resp BP Pulse Ox 97.3 F L 122 16 124/77 95 04/09/17 15:00 04/09/17 15:00 04/09/17 15:00 04/09/17 15:00 04/09/17 15:00 Internal Medicine: Result - Labs CBC & Chem 7: 04/09/17 03:26 04/09/17 03:26 Labs: Short CBC 04/09/17 Range/Units 03:26 WBC 9.8 D (4.3-11.1) K/mcL Hgb 8.6 L (11.5-15.4) g/dL Hct 29.2 L (35.3-44.9) % Plt Count 296 (140-400) K/mcL Neutrophils # 7.4 (1.6-8.9) K/mcL BMP 04/09/17 03:26 Sodium 149 H Potassium 3.8 Chloride 112 H Carbon Dioxide 29 BUN 34 H Creatinine 0.76 Glucose 182 H Calcium 8.2 L - ABG Interpretation ABG results: ABG ABG pH 7.47 pH Units (7.32-7.45) H 04/05/17 10:35 ABG pCO2 40 mmHg (35-45) 04/05/17 10:35 ABG pO2 82 mmHg (85-104) L 04/05/17 10:35 ABG O2 Saturation 97 % (95-98) 04/05/17 10:35 PT/INR, D-dimer PT 11.5 Seconds (9.4-12.1) 04/01/17 19:25 - Impressions Impressions Lower Extremity CT 04/09/17 10:41 IMPRESSION: CT studies of the left hip and of the left lower extremity demonstrate no acute bony abnormalities. If there is persistent clinical concern or difficulty weight-bearing, consider further evaluation with MRI. Heterogeneous enlargement of left iliacus muscle with mild degree of adjacent fat stranding to the left iliopsoas. Findings are felt to be most consistent with strain/contusion of the iliacus with edema, hemorrhage and partial tearing. Mass lesion or infectious etiology felt unlikely, but suggest continued follow-up to assure resolution. Fat- and small bowel-containing left inguinal hernia and fat-containing right inguinal hernia. Mild degree of nonspecific subcutaneous edema laterally to both hips. Colonic diverticulosis without evidence for diverticulitis. Degenerative changes of both hips, both SI joints, left knee, and of visualized lower lumbar spine. Diffuse bone demineralization. D/ / 04/09/2017 12:31:47 Randy Lopez MD / douglas Interpreting Provider: Randy Lopez MD Hip CT 04/09/17 10:42 IMPRESSION: CT studies of the left hip and of the left lower extremity demonstrate no acute bony abnormalities. If there is persistent clinical concern or difficulty weight-bearing, consider further evaluation with MRI. Heterogeneous enlargement of left iliacus muscle with mild degree of adjacent fat stranding to the left iliopsoas. Findings are felt to be most consistent with strain/contusion of the iliacus with edema, hemorrhage and partial tearing. Mass lesion or infectious etiology felt unlikely, but suggest continued follow-up to assure resolution. Fat- and small bowel-containing left inguinal hernia and fat-containing right inguinal hernia. Mild degree of nonspecific subcutaneous edema laterally to both hips. Colonic diverticulosis without evidence for diverticulitis. Degenerative changes of both hips, both SI joints, left knee, and of visualized lower lumbar spine. Diffuse bone demineralization. D/ / 04/09/2017 12:31:47 Randy Lopez MD / [email or web address] Interpreting Provider: Randy Lopez MD Videofluoroscopic Swallow 04/09/17 13:22 IMPRESSION: No evidence of aspiration or penetration. Please see separate speech pathology report for full discussion of findings and recommendations. D/ / Adela Lee MD / Adela Lee MD Interpreting Provider: Adela Lee MD - Attending Attestation I examined this patient and my medical decision-making was reviewed with the Resident Physician. I agree with the documented findings, disposition and treatment plan as described except to the extent set forth below.
[2017-04-09] MEDS: D5% in 0.45% NACL 1,000 ML IVC SCH (12:22)
--- NOTE | 2017-04-09 13:28 | General Surgery Progress Note ---
<Adeline Bingham Shannan - Last Filed: 04/09/17 14:09> Date of Encounter: 04/09/17 Time of Encounter: 13:00 - Assessment and Plan (1) Hiatal hernia Current Visit: Yes Status: Acute 04/06/2017 POD #11 as below. Final pathology noted Stomach, partial gastrectomy ; Focally ulcerated mucosa, acute and chronic inflammation and focal transmural necrosis; Margins viable.Ms Mackenzie reports some improvement in her abdominal discomfort. 04/09/2017 : Anne Marie reports she feels better today. She was OOB to [facility] today. Incisions are clean, dry, and intact without surrounding erythema or cellulitis. Her drain sites (detailed below) are unremarkable. Her bowel sounds are normoactive. She reports passing flatus today, but denies BM. Plan: 1. Patient must bathe daily. Reviewed with patient. Await return of bowel function 2. ST following. OK to complete modified swallow to assess for aspiration 3. Leave G-tube clamped. If patient has n/v, may return to [facility]. 4. Continue J-tube with tube feeds. OK to give meds through J-tube (Only if crushed and dissolved to liquid status. Flush with 200 ml after med administration. 5. PT/OT for mobilization and discharge planning (possibly Wednesday pending clinical course) 6. Continue Aggressive pulmonary toileting per primary team/pulmonary 7. Continue DVT prophylaxis per primary team 8. Continue Protonix 40 mg BID IV for GI prophylaxis 9. TF at goal through J-tube. Please ensure free water flushes Q4Hs to prevent clogging. 10. Miralax BID per J-tube. Dulcolax suppositories BID. Surgery will continue to follow along and make recommendations. Left J-tube: TF running at goals (Osmolite 1.2 jimenez) 55; OK to give meds through J-tube (Only if crushed and dissolved to liquid status. Flush with 200 ml after med administration and Q4H Peg tube: clamped Daily Wound and Drain care: Wash abdomen daily with antibacterial soap. Apply zinc oxide cream around drain sites. Cover drain sites with a split cause. Leave midline abdominal incision open to air or cover with a dry dressing for comfort. Tape to secure. 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 Segmental gastric necrosis. Distal esophageal necrosis) Procedure: #1 reduction of gastric volvulus #2 repair of hiatal hernia #3 debridement and primary repair of distal esophagus #4 resection of gastric necrosis (tangential resection of full-thickness necrotic ulcers times 4) #5 gastrostomy tube #6 jejunostomy tube Anesthesia: BERYLA Surgeon: Kayden Castillo Estimated blood loss (cc): 200 (2) Aspiration into respiratory tract Current Visit: Yes Status: Acute Management per primary medicine. Currently pt is on O2 per nasal cannula. ST following. Modified swallow today Further recommendations pending Qualifiers: Encounter type: subsequent encounter Qualified Code(s): T17.908D - Unspecified foreign body in respiratory tract, part unspecified causing other injury, subsequent encounter (3) DVT (deep venous thrombosis) Current Visit: Yes Status: Acute Per Primary Qualifiers: DVT location: upper extremity Affected thrombotic vein of extremity: brachial Chronicity: acute Laterality: right Qualified Code(s): I82.621 - Acute embolism and thrombosis of deep veins of right upper extremity (4) Abnormal CAT scan Current Visit: Yes Status: Acute CT of hip and LLE noted per primary team. Incidental findings in the report included below. Will review with Dr. Castillo: Heterogeneous enlargement of left iliacus muscle with mild degree of adjacent fat stranding to the left iliopsoas. Findings are felt to be most consistent with strain/contusion of the iliacus with edema, hemorrhage and partial tearing. Mass lesion or infectious etiology felt unlikely, but suggest continued follow-up to assure resolution. Fat- and small bowel-containing left inguinal hernia and fat-containing right inguinal hernia. Subjective Patient reports: no new complaints, feels better, still having pain, pain is less (r/t abd ), flatus, no bowel movement, afebrile Objective Vital Signs - Last 8 Hours Temp Pulse Resp BP Pulse Ox 04/09/17 11:51 97.4 F L 114 17 124/60 98 04/09/17 11:01 17 94 04/09/17 07:56 17 90 04/09/17 07:10 98.1 F 97 18 121/55 93 Intake and Output 04/08/17 04/09/17 04/09/17 23:59 07:59 15:59 Intake Total 1084 / 1084 0 / 0 0 / 0 Output Total 1023 / 1023 850 / 850 1100 / 1100 Balance 61 / 61 -850 / -850 -1100 / -1100 Intake: Oral 0 / 0 0 / 0 0 / 0 Tube Feeding 884 / 884 Free Water Intake Amount 200 / 200 Output: Gastric Tube Lavage Amount 100 / 100 LUQ1 100 / 100 Catheter 1000 / 1000 750 / 750 1100 / 1100 Wound Drainage left upper abdomen 2 Other: Meal NPO Percent of Meal Consumed 0% Weight 59.8 kg Blood Glucose* 169 130 72 Patient Weight 04/09/17 23:59 Weight 59.8 kg - General physical appearance no distress, moderate pain (hip) - ENT dentures, atraumatic, normocephalic - Neck Neck exam: trachea midline, no venous distension - Respiratory other (decreased and with rhonchi) - Cardiovascular Cardiovascular exam: Present: RRR - Abdomen Abdomen: Present: bowel sounds present, soft, tender (expected postoperative) - Integumentary no abnormal pigmentation - Neurologic normal coordination, normal sensation - Musculoskeletal normal posture - Psychiatric oriented to time, oriented to person, oriented to place - Labs 04/09/17 03:26 04/09/17 03:26 Diabetes panel 04/09/17 Range/Units 03:26 Sodium 149 H (136-145) mEq/L Potassium 3.8 (3.5-5.1) mEq/L Chloride 112 H (98-107) mEq/L Carbon Dioxide 29 (23-29) mEq/L BUN 34 H (8-23) mg/dL Creatinine 0.76 (0.60-1.20) mg/dL Glucose 182 H (70-105) mg/dL Calcium 8.2 L (8.6-10.3) mg/dL Calcium panel 04/09/17 Range/Units 03:26 Calcium 8.2 L (8.6-10.3) mg/dL Pituitary panel 04/09/17 Range/Units 03:26 Sodium 149 H (136-145) mEq/L Potassium 3.8 (3.5-5.1) mEq/L Chloride 112 H (98-107) mEq/L Carbon Dioxide 29 (23-29) mEq/L BUN 34 H (8-23) mg/dL Creatinine 0.76 (0.60-1.20) mg/dL Glucose 182 H (70-105) mg/dL Calcium 8.2 L (8.6-10.3) mg/dL Adrenal panel 04/09/17 Range/Units 03:26 Sodium 149 H (136-145) mEq/L Potassium 3.8 (3.5-5.1) mEq/L Chloride 112 H (98-107) mEq/L Carbon Dioxide 29 (23-29) mEq/L BUN 34 H (8-23) mg/dL Creatinine 0.76 (0.60-1.20) mg/dL Glucose 182 H (70-105) mg/dL Calcium 8.2 L (8.6-10.3) mg/dL - VTE Documentation of Mechanical Device: Intermittent pneumatic compression device Consult Discharge Plan - Plan Referrals: Memo Cody MD [Primary Care Provider] - <Kayden Castillo - Last Filed: 04/10/17 12:41> Date of Encounter: 04/09/17 Objective Vital Signs - Last 8 Hours Temp Pulse Resp BP Pulse Ox 04/10/17 11:16 16 94 04/10/17 07:55 99.4 F 114 24 126/69 92 04/10/17 07:51 16 94 Intake and Output 04/09/17 04/10/17 04/10/17 23:59 07:59 15:59 Intake Total 700 / 700 840 / 840 0 / 0 Output Total 55 / 55 805 / 805 200 / 200 Balance 645 / 645 35 / 35 -200 / -200 Intake: Oral 300 / 300 240 / 240 0 / 0 Free Water Intake Amount 400 / 400 600 / 600 Output: Urine 0 / 0 Gastric Tube Lavage Amount 50 / 50 55 / 55 LUQ1 50 / 50 55 / 55 Catheter 0 / 0 750 / 750 200 / 200 Urethral ([place]) 200 / 200 Wound Drainage 5 / 5 left upper abdomen 2 5 / 5 Other: Meal Breakfast Percent of Meal Consumed 0% Stool Size Small Stool Characteristics Mucoid Weight 59.2 kg 58.7 kg Blood Glucose* 148 179 184 Patient Weight 04/10/17 23:59 Weight 58.7 kg - Labs 04/10/17 03:45 04/10/17 03:45 Diabetes panel 04/10/17 Range/Units 03:45 Sodium 147 H (136-145) mEq/L Potassium 3.6 (3.5-5.1) mEq/L Chloride 110 H (98-107) mEq/L Carbon Dioxide 31 H (23-29) mEq/L BUN 43 H (8-23) mg/dL Creatinine 0.90 (0.60-1.20) mg/dL Glucose 178 H (70-105) mg/dL Calcium 8.2 L (8.6-10.3) mg/dL Calcium panel 04/10/17 Range/Units 03:45 Calcium 8.2 L (8.6-10.3) mg/dL Pituitary panel 04/10/17 Range/Units 03:45 Sodium 147 H (136-145) mEq/L Potassium 3.6 (3.5-5.1) mEq/L Chloride 110 H (98-107) mEq/L Carbon Dioxide 31 H (23-29) mEq/L BUN 43 H (8-23) mg/dL Creatinine 0.90 (0.60-1.20) mg/dL Glucose 178 H (70-105) mg/dL Calcium 8.2 L (8.6-10.3) mg/dL Adrenal panel 04/10/17 Range/Units 03:45 Sodium 147 H (136-145) mEq/L Potassium 3.6 (3.5-5.1) mEq/L Chloride 110 H (98-107) mEq/L Carbon Dioxide 31 H (23-29) mEq/L BUN 43 H (8-23) mg/dL Creatinine 0.90 (0.60-1.20) mg/dL Glucose 178 H (70-105) mg/dL Calcium 8.2 L (8.6-10.3) mg/dL - Attending Attestation I have personally performed a face to face evaluation on this patient. I have reviewed and agree with the care plan. History and Exam by me shows: The patient continues to do well after reduction of necrotic gastric volvulus and debridement of esophagus. We are progressing well on jejunostomy tube feedings and we should be able to clamp the gastric tube today for some liquids. Kayden Castillo MD FACS
--- NOTE | 2017-04-09 17:45 | Electrocardiograph Report ---
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
[2017-04-09] MEDS ORDERED: *HR* Metoprolol 5 MG/5 ML VIAL IVP PRN (18:13)
[2017-04-10] MEDS: Metoclopramide 10 MG/2 ML VIAL IVP SCH ×5 (00:31→23:01)
[2017-04-10] MEDS: *HR* Metoprolol 5 MG/5 ML VIAL IVP SCH ×5 (00:31→23:01)
[2017-04-10] MEDS: Insulin LISPRO 300 UNITS/3 ML VIAL SQ SCH ×6 (00:32→22:55)
[2017-04-10] MEDS: OXYCODONE Oral CONC 10 MG/0.5 ML ORAL.SYG SL PRN ×4 (02:19→23:38)
[2017-04-10 03:56] LABS: Hematocrit 25.7 % (35.3-44.9); Hemoglobin 7.6 g/dL (11.5-15.4); Mean Corpuscular HGB Conc 29.6 g/dL (31.6-35.5); Mean Corpuscular Volume 91.5 fL (83.0-100.0); Mean Platelet Volume 11.1 fL (9.4-12.4); Platelet Count 272 K/mcL (140-400); Red Blood Count 2.81 M/mcL (3.82-4.97); Red Cell Distribution Width 16.1 % (11.5-14.5)
[2017-04-10] MEDS: Ipratropium/Albuterol Neb 3 ML IH SCH ×5 (04:07→20:18)
[2017-04-10 04:18] LABS: BUN/Creatinine Ratio 48 (6-26); Blood Urea Nitrogen 43 mg/dL (8-23); Calcium 8.2 mg/dL (8.6-10.3); Carbon Dioxide 31 mEq/L (23-29); Chloride 110 mEq/L (98-107); Glucose 178 mg/dL (70-105); Osmolality,Calculated 319 (280-300); Potassium 3.6 mEq/L (3.5-5.1); Sodium 147 mEq/L (136-145); eGFR For African Americans > 60 (> 60); eGFR For Non-African Americans 60 (> 60)
[2017-04-10] MEDS: *HR* Enoxaparin 60 MG/0.6 ML SYRINGE SQ SCH ×2 (06:28→17:26)
[2017-04-10] MEDS: Budesonide/Formoterol 160/4.5 MDI IH SCH ×2 (07:47→20:18)
[2017-04-10] MEDS: Furosemide Oral Soln 40 MG/4 ML UDC PO SCH (08:51)
[2017-04-10] MEDS: Bisacodyl 10 MG RECTAL SUPPOSITORY RC SCH ×2 (08:52→23:01)
--- NOTE | 2017-04-10 13:10 | Internal Med Progress Note ---
Date of Encounter: 04/10/17 Time of Encounter: 13:07 - Assessment and plan (1) Acute respiratory failure with hypoxia Current Visit: Yes Status: Acute Assessment and plan: - Acute respiratory failure with hypoxia secondary to aspiration of Gastrograffin for upper GI series with pleural effusion component -Repeat CTA showing mild right and large left pleural effusion, both improved from previous. - Pt currently tolerating 4L with O2 sats in high 90s this AM. - No reported home O2 requirement. - Dyspnea improved with diuresis - Pulmonology following, appreciate recommendations - Patient is -15 L since admission Plan - Discussed with pulmonary, do not anticipate bronchoscopy she is clinically improving with diuretics - Continue Lasix, will go back to IV as she is not taking PO meds, BiPAP when necessary. Carefully monitor of kidney function - Also suspect some anxiety component of SOB, improved with Ativan 0.5mg. - Management as below 04/10/2017 Acute respiratory failure with hypoxia. Presenting complaint after patient has aspiration from Gastrografin. This morning patient's symptoms were much better and it appears that she has shortness of breath is likely secondary to her anxiety. Patient denies any cough or mucopurulent expectoration. Pulmonology was on the board and we will follow their recommendations. (2) Aspiration into respiratory tract Current Visit: Yes Status: Acute Assessment and plan: - As above. 04/10/2017 At this point patient does not have any risk of aspiration. We will continue to monitor patient very closely. Qualifiers: Encounter type: subsequent encounter Qualified Code(s): T17.908D - Unspecified foreign body in respiratory tract, part unspecified causing other injury, subsequent encounter (3) Atrial fibrillation Current Visit: Yes Status: Acute Assessment and plan: Patient has chronic atrial fibrillation. 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 - Patient is hemodynamically stable and appears to be improving - Tolerating intermittent O2 via NC and room air at this time - Completed an 8 day course of Zosyn during stay for possible aspiration Plan: Nothing by mouth, gastric feeding tubes CTA shows improvement of pleural effusions and increased airspace No plan for bronchoscopy as patient is clinically improving and CTA this morning is improved from previous We will continue to monitor at this time Echo 04/10/2017 Patient has successfully completed the course of antibiotics. Patient does not need any further antibiotics at this point. Oxygen requirement is appropriate for her age and underlying comorbid conditions. 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 Gastric tube feedings at recommendation. - G-tube clamped again this morning. Tolerating intermittent clamping so far. Will monitor. Management per surgery - Night team reports j-tube being clogged. Surgery team aware -Hypoactive bowel sounds. Reports flatus, 1 BM. Diet advancement per surgery - Pathology results: folcally ulcerated mucosa, acute on chronic inflammation, transmural necrosis with clear margins. Plan - Further management per surgery - Feeds per gastric tube, reglan, Zofran, pain control - Pt is to remain NPO until gastric tube output decreases. Recommend Upper GI series before PO intake. 04/10/2017 Management as per surgery. (6) DVT (deep venous thrombosis) Current Visit: Yes Status: Acute Assessment and plan: - DVT as demonstrated on ultrasound in right upper extremity, brachial - PICC line in place, noted flow around clot - Discussed with PICC team, recommended keep PICC line in place as there is flow around and left UE has superficial venous thrombosis and high chance of DVT - Discussed anticoagulation and we will continue lovenox 80 mg BID - No symptoms, swelling measured at 32 cm, +3 cm from baseline done at PICC line placement. Plan Continue Lovenox Qualifiers: DVT location: upper extremity Affected thrombotic vein of extremity: brachial Chronicity: acute Laterality: right Qualified Code(s): I82.621 - Acute embolism and thrombosis of deep veins of right upper extremity - Subjective Interval history: Patient seen and examined. Chart reviewed. Patient is comfortably lying in the bed. Along with me surgical nurse practitioner was present in the room. Patient denies any ongoing acute/active pain. - Constitutional Vitals: Temp Pulse Resp BP Pulse Ox 99.4 F 114 16 126/69 94 04/10/17 07:55 04/10/17 07:55 04/10/17 11:16 04/10/17 07:55 04/10/17 11:16 General appearance: Present: A&O X 3, answers questions appropriately - Head Head exam: Present: atraumatic, normocephalic - Eye Eye exam: Present: PERRL, conjuntiva pink, sclera anicteric Pupils: Present: PERRL - Neck Neck exam general surgery: Present: supple, trachea midline. Absent: lymphadenopathy - Respiratory Respiratory exam: Present: CTAB. Absent: accessory muscle use, rales, rhonchi, wheezes - Cardiovascular Cardiovascular exam: Present: RRR, +S1, +S2. Absent: diastolic murmur, gallop, rubs, systolic murmur - GI/Abdominal GI/Abdominal exam: Present: normal bowel sounds, soft, no peritoneal signs. Absent: distended, tenderness - Extremities Exam Extremities exam: Present: warm, radial pulses palpable and symmetrical. Absent : calf tenderness, cyanotic, pedal edema - Neurological Exam Neurological exam: Present: CN II-XII intact, oriented X3, no focal deficits. Absent: pronater drift, facial droop, speech deficit - Skin Skin exam: Present: dry, intact Internal Medicine: Result - Labs CBC & Chem 7: 04/10/17 03:45 04/10/17 03:45 Labs: Short CBC 04/10/17 Range/Units 03:45 WBC 9.8 (4.3-11.1) K/mcL Hgb 7.6 L (11.5-15.4) g/dL Hct 25.7 L (35.3-44.9) % Plt Count 272 (140-400) K/mcL BMP 04/10/17 03:45 Sodium 147 H Potassium 3.6 Chloride 110 H Carbon Dioxide 31 H BUN 43 H Creatinine 0.90 Glucose 178 H Calcium 8.2 L - ABG Interpretation ABG results: ABG ABG pH 7.47 pH Units (7.32-7.45) H 04/05/17 10:35 ABG pCO2 40 mmHg (35-45) 04/05/17 10:35 ABG pO2 82 mmHg (85-104) L 04/05/17 10:35 ABG O2 Saturation 97 % (95-98) 04/05/17 10:35 PT/INR, D-dimer PT 11.5 Seconds (9.4-12.1) 04/01/17 19:25 - Impressions Impressions Lower Extremity CT 04/09/17 10:41 IMPRESSION: CT studies of the left hip and of the left lower extremity demonstrate no acute bony abnormalities. If there is persistent clinical concern or difficulty weight-bearing, consider further evaluation with MRI. Heterogeneous enlargement of left iliacus muscle with mild degree of adjacent fat stranding to the left iliopsoas. Findings are felt to be most consistent with strain/contusion of the iliacus with edema, hemorrhage and partial tearing. Mass lesion or infectious etiology felt unlikely, but suggest continued follow-up to assure resolution. Fat- and small bowel-containing left inguinal hernia and fat-containing right inguinal hernia. Mild degree of nonspecific subcutaneous edema laterally to both hips. Colonic diverticulosis without evidence for diverticulitis. Degenerative changes of both hips, both SI joints, left knee, and of visualized lower lumbar spine. Diffuse bone demineralization. D/ /09/2017 12:31:47 Randy Lopez MD / douglas Interpreting Provider: Randy Lopez MD Hip CT 04/09/17 10:42 IMPRESSION: CT studies of the left hip and of the left lower extremity demonstrate no acute bony abnormalities. If there is persistent clinical concern or difficulty weight-bearing, consider further evaluation with MRI. Heterogeneous enlargement of left iliacus muscle with mild degree of adjacent fat stranding to the left iliopsoas. Findings are felt to be most consistent with strain/contusion of the iliacus with edema, hemorrhage and partial tearing. Mass lesion or infectious etiology felt unlikely, but suggest continued follow-up to assure resolution. Fat- and small bowel-containing left inguinal hernia and fat-containing right inguinal hernia. Mild degree of nonspecific subcutaneous edema laterally to both hips. Colonic diverticulosis without evidence for diverticulitis. Degenerative changes of both hips, both SI joints, left knee, and of visualized lower lumbar spine. Diffuse bone demineralization. D/ / 04/09/2017 12:31:47 Randy Lopez MD / earnold Interpreting Provider: Randy Lopez MD Videofluoroscopic Swallow 04/09/17 13:22 IMPRESSION: No evidence of aspiration or penetration. Please see separate speech pathology report for full discussion of findings and recommendations. D/ / Adela Lee MD / Adela Lee MD Interpreting Provider: Adela Lee MD - VTE Documentation of Mechanical Device: Intermittent pneumatic compression device Consult Discharge Plan - Plan Referrals: Memo Cody MD [Primary Care Provider] -
--- NOTE | 2017-04-10 13:37 | General Surgery Progress Note ---
<Adeline Bingham Shannan - Last Filed: 04/10/17 13:34> Date of Encounter: 04/10/17 Time of Encounter: 08:00 - Assessment and Plan (1) Hiatal hernia Current Visit: Yes Status: Acute 04/06/2017 POD #12 as below. Final pathology noted Stomach, partial gastrectomy ; Focally ulcerated mucosa, acute and chronic inflammation and focal transmural necrosis; Margins viable.Ms Mackenzie reports some improvement in her abdominal discomfort. 04/10/2017 : overall significant improvement today. Patient has active bowel sounds, she had a bowel movement yesterday, she denies flatus this morning. She denies any difficulty with her diet. Plan: 1. Patient must bathe daily. 2. ST following. No aspiration on swallow eval. CLD. 3. Leave G-tube clamped. If patient has n/v, may return to [facility]. 4. Continue J-tube with tube feeds. OK to give meds through J-tube (Only if crushed and dissolved to liquid status. Flush with 200 ml after med administration. 5. PT/OT for mobilization and discharge planning (possibly Wednesday pending clinical course) 6. Continue Aggressive pulmonary toileting per primary team/pulmonary 7. Continue DVT prophylaxis per primary team 8. Continue Protonix 40 mg BID IV for GI prophylaxis 9. TF at goal through J-tube. Please ensure free water flushes Q4Hs to prevent clogging. 10. Miralax BID per J-tube. Dulcolax suppositories BID. 11. DC MARILOU drain Surgery will continue to follow along and make recommendations. Left J-tube: TF running at goals (Osmolite 1.2 jimenez) 55; OK to give meds through J-tube (Only if crushed and dissolved to liquid status. Flush with 200 ml after med administration and Q4H Peg tube: clamped Daily Wound and Drain care: Wash abdomen daily with antibacterial soap. Apply zinc oxide cream around drain sites. Cover drain sites with a split cause. Leave midline abdominal incision open to air or cover with a dry dressing for comfort. Tape to secure. 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 Segmental gastric necrosis. Distal esophageal necrosis) Procedure: #1 reduction of gastric volvulus #2 repair of hiatal hernia #3 debridement and primary repair of distal esophagus #4 resection of gastric necrosis (tangential resection of full-thickness necrotic ulcers times 4) #5 gastrostomy tube #6 jejunostomy tube Anesthesia: SIL Surgeon: Kayden Castillo Estimated blood loss (cc): 200 (2) Aspiration into respiratory tract Current Visit: Yes Status: Acute Management per primary medicine. Currently pt is on O2 per nasal cannula. No signs of aspiration on previous modified swallow exam. Qualifiers: Encounter type: subsequent encounter Qualified Code(s): T17.908D - Unspecified foreign body in respiratory tract, part unspecified causing other injury, subsequent encounter (3) DVT (deep venous thrombosis) Current Visit: Yes Status: Acute Per Primary Qualifiers: DVT location: upper extremity Affected thrombotic vein of extremity: brachial Chronicity: acute Laterality: right Qualified Code(s): I82.621 - Acute embolism and thrombosis of deep veins of right upper extremity (4) Abnormal CAT scan Current Visit: Yes Status: Acute CT of hip and LLE noted per primary team. Incidental findings in the report included below. Will review with Dr. Castillo: Heterogeneous enlargement of left iliacus muscle with mild degree of adjacent fat stranding to the left iliopsoas. Findings are felt to be most consistent with strain/contusion of the iliacus with edema, hemorrhage and partial tearing. Mass lesion or infectious etiology felt unlikely, but suggest continued follow-up to assure resolution. Fat- and small bowel-containing left inguinal hernia and fat-containing right inguinal hernia. Subjective Patient reports: no new complaints, feels better, still having pain, pain is less, voiding w/o difficulty, flatus, bowel movement, afebrile Objective Vital Signs - Last 8 Hours Temp Pulse Resp BP Pulse Ox 04/10/17 11:16 16 94 04/10/17 07:55 99.4 F 114 24 126/69 92 04/10/17 07:51 16 94 Intake and Output 04/09/17 04/10/17 04/10/17 23:59 07:59 15:59 Intake Total 700 / 700 840 / 840 0 / 0 Output Total 55 / 55 805 / 805 200 / 200 Balance 645 / 645 35 / 35 -200 / -200 Intake: Oral 300 / 300 240 / 240 0 / 0 Free Water Intake Amount 400 / 400 600 / 600 Output: Urine 0 / 0 Gastric Tube Lavage Amount 50 / 50 55 / 55 LUQ1 50 / 50 55 / 55 Catheter 0 / 0 750 / 750 200 / 200 Urethral (Peralta) 200 / 200 Wound Drainage 5 / 5 left upper abdomen 2 5 / 5 Other: Meal Breakfast Percent of Meal Consumed 0% Stool Size Small Stool Characteristics Mucoid Weight 59.2 kg 58.7 kg Blood Glucose* 148 179 184 Patient Weight 04/10/17 23:59 Weight 58.7 kg - General physical appearance no distress, no pain - ENT atraumatic, normocephalic - Neck Neck exam: trachea midline, no venous distension - Respiratory normal expansion, normal respiratory effort, clear to auscultation - Cardiovascular Cardiovascular exam: Present: RRR, distant heart sounds - Abdomen Abdomen: Present: bowel sounds present, soft, tender (Expected postoperative tenderness), wound (See assessment and plan) Hernia: none - Integumentary no abnormal pigmentation - Neurologic normal coordination, normal sensation - Musculoskeletal normal posture - Psychiatric oriented to time, oriented to person, oriented to place, memory intact - Labs 04/10/17 03:45 04/10/17 03:45 Diabetes panel 04/10/17 Range/Units 03:45 Sodium 147 H (136-145) mEq/L Potassium 3.6 (3.5-5.1) mEq/L Chloride 110 H (98-107) mEq/L Carbon Dioxide 31 H (23-29) mEq/L BUN 43 H (8-23) mg/dL Creatinine 0.90 (0.60-1.20) mg/dL Glucose 178 H (70-105) mg/dL Calcium 8.2 L (8.6-10.3) mg/dL Calcium panel 04/10/17 Range/Units 03:45 Calcium 8.2 L (8.6-10.3) mg/dL Pituitary panel 04/10/17 Range/Units 03:45 Sodium 147 H (136-145) mEq/L Potassium 3.6 (3.5-5.1) mEq/L Chloride 110 H (98-107) mEq/L Carbon Dioxide 31 H (23-29) mEq/L BUN 43 H (8-23) mg/dL Creatinine 0.90 (0.60-1.20) mg/dL Glucose 178 H (70-105) mg/dL Calcium 8.2 L (8.6-10.3) mg/dL Adrenal panel 04/10/17 Range/Units 03:45 Sodium 147 H (136-145) mEq/L Potassium 3.6 (3.5-5.1) mEq/L Chloride 110 H (98-107) mEq/L Carbon Dioxide 31 H (23-29) mEq/L BUN 43 H (8-23) mg/dL Creatinine 0.90 (0.60-1.20) mg/dL Glucose 178 H (70-105) mg/dL Calcium 8.2 L (8.6-10.3) mg/dL - VTE Documentation of Mechanical Device: Intermittent pneumatic compression device Consult Discharge Plan - Plan Referrals: Memo Cody MD [Primary Care Provider] - <Kayden Castillo - Last Filed: 04/10/17 19:30> Date of Encounter: 04/10/17 Objective Vital Signs - Last 8 Hours Temp Pulse Resp BP Pulse Ox 04/10/17 16:11 97.9 F 88 20 136/70 96 Intake and Output 04/10/17 04/10/17 04/10/17 07:59 15:59 23:59 Intake Total 840 / 840 300 / 300 Output Total 805 / 805 200 / 200 350 / 350 Balance 35 / 35 100 / 100 -350 / -350 Intake: Oral 240 / 240 300 / 300 Free Water Intake Amount 600 / 600 Output: Urine 0 / 0 Gastric Tube Lavage Amount 55 / 55 LUQ1 55 / 55 Straight Cath 350 / 350 Catheter 750 / 750 200 / 200 Urethral (Peralta) 200 / 200 Other: Meal Breakfast Percent of Meal Consumed 0% Stool Size Small Stool Characteristics Mucoid Weight 58.7 kg Blood Glucose* 179 184 174 Patient Weight 04/10/17 23:59 Weight 58.7 kg - Labs 04/10/17 03:45 04/10/17 03:45 Diabetes panel 04/10/17 Range/Units 03:45 Sodium 147 H (136-145) mEq/L Potassium 3.6 (3.5-5.1) mEq/L Chloride 110 H (98-107) mEq/L Carbon Dioxide 31 H (23-29) mEq/L BUN 43 H (8-23) mg/dL Creatinine 0.90 (0.60-1.20) mg/dL Glucose 178 H (70-105) mg/dL Calcium 8.2 L (8.6-10.3) mg/dL Calcium panel 04/10/17 Range/Units 03:45 Calcium 8.2 L (8.6-10.3) mg/dL Pituitary panel 04/10/17 Range/Units 03:45 Sodium 147 H (136-145) mEq/L Potassium 3.6 (3.5-5.1) mEq/L Chloride 110 H (98-107) mEq/L Carbon Dioxide 31 H (23-29) mEq/L BUN 43 H (8-23) mg/dL Creatinine 0.90 (0.60-1.20) mg/dL Glucose 178 H (70-105) mg/dL Calcium 8.2 L (8.6-10.3) mg/dL Adrenal panel 04/10/17 Range/Units 03:45 Sodium 147 H (136-145) mEq/L Potassium 3.6 (3.5-5.1) mEq/L Chloride 110 H (98-107) mEq/L Carbon Dioxide 31 H (23-29) mEq/L BUN 43 H (8-23) mg/dL Creatinine 0.90 (0.60-1.20) mg/dL Glucose 178 H (70-105) mg/dL Calcium 8.2 L (8.6-10.3) mg/dL - Attending Attestation I have personally performed a face to face evaluation on this patient. I have reviewed and agree with the care plan. History and Exam by me shows: The patient was seen and evaluated with the resident and the clinical nurse practitioner. She is doing quite well. We will remove the Chuy-Altamirano drain today. We will continue with jejunostomy tube feedings and slowly increase her oral intake of liquids. Kayden Castillo MD FACS
[2017-04-11] MEDS: Ipratropium/Albuterol Neb 3 ML IH SCH ×7 (00:05→23:41)
[2017-04-11] MEDS: OXYCODONE Oral CONC 10 MG/0.5 ML ORAL.SYG SL PRN (03:39)
[2017-04-11 04:42] LABS: Basophils % 0.1 %; Eosinophils % 0.6 %; Hematocrit 22.5 % (35.3-44.9); Hemoglobin 6.8 g/dL (11.5-15.4); Immature Granulocytes % 0.3 % (0-4); Lymphocytes # 1.6 K/mcL (0.6-4.6); Lymphocytes % 22.2 %; Mean Corpuscular HGB Conc 30.2 g/dL (31.6-35.5); Mean Corpuscular Hemoglobin 26.8 pg (28.0-33.3); Mean Corpuscular Volume 88.6 fL (83.0-100.0); Monocytes # 0.4 K/mcL (0.0-1.3); Monocytes % 5.6 %; Neutrophils # 5.1 K/mcL (1.6-8.9); Platelet Count 231 K/mcL (140-400); Red Blood Count 2.54 M/mcL (3.82-4.97); Segmented Neutrophils % 71.2 %
[2017-04-11 05:04] LABS: Alanine Aminotransferase 33 Units/L (7-52); Albumin 2.4 g/dL (3.5-5.7); Albumin/Globulin Ratio 0.8 (1.1-2.2); Alkaline Phosphatase 76 Units/L (34-104); Aspartate Amino Transferase 45 Units/L (13-39); BUN/Creatinine Ratio 55 (6-26); Bilirubin,Total 0.3 mg/dL (0.3-1.0); Blood Urea Nitrogen 46 mg/dL (8-23); Calcium 7.9 mg/dL (8.6-10.3); Carbon Dioxide 31 mEq/L (23-29); Chloride 106 mEq/L (98-107); Globulin 3.2 g/dL (2.4-3.5); Glucose 174 mg/dL (70-105); Osmolality,Calculated 314 (280-300); Potassium 3.6 mEq/L (3.5-5.1); Sodium 144 mEq/L (136-145); Total Protein 5.6 g/dL (6.4-8.9); eGFR For African Americans > 60 (> 60); eGFR For Non-African Americans > 60 (> 60)
[2017-04-11] MEDS: *HR* Enoxaparin 60 MG/0.6 ML SYRINGE SQ SCH ×2 (06:16→17:27)
[2017-04-11] MEDS: *HR* Metoprolol 5 MG/5 ML VIAL IVP SCH ×3 (06:16→17:29)
[2017-04-11] MEDS: Metoclopramide 10 MG/2 ML VIAL IVP SCH ×4 (06:16→23:21)
[2017-04-11] MEDS: Budesonide/Formoterol 160/4.5 MDI IH SCH ×2 (07:29→20:48)
--- NOTE | 2017-04-11 10:21 | General Surgery Progress Note ---
Addendum entered and electronically signed by Rhiannon Dennis MD 04/11/17 10:39: Hgb 6.8. Permissible to transfuse from surgical post-operative care standpoint if deemed necessary. Decision for transfusion, per primary. Will follow. 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 Plan #Leave G-tube clamped. If patient develops N/V, immediately open G-tube. If N/V persists, drain G-tube, then subsequently give anti-nausea medication. #ST following. No aspiration on swallow eval. 04/09/17 Report Recommendation: Thin liquids and advanced soft textures. Ok to advance to clear liquid diet today. #DC Chuy-Altamirano drain #Continue J-tube with tube feeds. #Continue pulmonary toileting per primary team/pulmonary # Continue DVT prophylaxis per primary team #Continue Protonix 40 mg BID IV for GI prophylaxis #Patient must bathe daily. Daily Wound and Drain care: Wash abdomen daily with antibacterial soap. Apply zinc oxide cream around drain sites. Cover drain sites with a split cause. Leave midline abdominal incision open to air or cover with a dry dressing for comfort. Tape to secure. Surgery will continue to follow along and make recommendations. (2) Aspiration into respiratory tract Current Visit: Yes Status: Acute s/p aspiration with Gastograffin 04/03 CTA shown left effusion with evidence of aspiration through L tracheobroncial tree. Patient's oxygen requirements coming down, now on 2 L Management per primary Qualifiers: Encounter type: subsequent encounter Qualified Code(s): T17.908D - Unspecified foreign body in respiratory tract, part unspecified causing other injury, subsequent encounter (3) New onset atrial fibrillation Current Visit: Yes Status: Acute Cardiology consulted. (4) Severe protein-calorie malnutrition Current Visit: Yes Status: Chronic Per primary team. 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 Per primary. (6) DVT (deep venous thrombosis) Current Visit: Yes Status: Acute Pt. Positive for DVT in the Right Upper Extremity in the Brachial Vein and Positive for SVT in the Left Upper Extremity Cephalic Vein. Management per primary team. Qualifiers: DVT location: upper extremity Affected thrombotic vein of extremity: brachial Chronicity: acute Laterality: right Qualified Code(s): I82.621 - Acute embolism and thrombosis of deep veins of right upper extremity (7) DVT prophylaxis Current Visit: Yes Status: Acute Management per primary. Subjective Narrative: No acute events overnight. Per RN nurse, patient has not reported nausea. Objective Physical exam performed by Kayden Castillo MD and dictated as noted below: Vital Signs - Last 8 Hours Temp Pulse Resp BP Pulse Ox 04/11/17 09:42 97.9 F 94 14 112/54 94 04/11/17 07:32 14 96 04/11/17 07:16 98.8 F 85 14 108/55 96 04/11/17 05:00 97.4 F L 108 18 104/72 92 04/11/17 04:29 14 Intake and Output 04/10/17 04/11/17 04/11/17 23:59 07:59 15:59 Intake Total 60 / 60 300 / 300 Output Total 350 / 350 800 / 800 Balance -350 / -350 -740 / -740 300 / 300 Intake: Oral 60 / 60 300 / 300 Output: Straight Cath 350 / 350 200 / 200 Catheter 600 / 600 Other: Meal Breakfast Percent of Meal Consumed 0% Weight 66.8 kg Blood Glucose* 121 192 175 Patient Weight 04/11/17 23:59 Weight 66.8 kg - General physical appearance no distress - Respiratory normal expansion, clear to auscultation - Cardiovascular Cardiovascular exam: Absent: tachycardia Addtional Comments: +S1, S2 - Abdomen Abdomen: Present: bowel sounds present, soft, tender (expected post-op tenderness ) Additional Comments: Mild expected erythema around J-tube. - Labs 04/11/17 04:20 04/11/17 04:20 Diabetes panel 04/11/17 Range/Units 04:20 Sodium 144 (136-145) mEq/L Potassium 3.6 (3.5-5.1) mEq/L Chloride 106 (98-107) mEq/L Carbon Dioxide 31 H (23-29) mEq/L BUN 46 H (8-23) mg/dL Creatinine 0.83 (0.60-1.20) mg/dL Glucose 174 H (70-105) mg/dL Calcium 7.9 L (8.6-10.3) mg/dL AST 45 H (13-39) Units/L ALT 33 (7-52) Units/L Alkaline Phosphatase 76 (34-104) Units/L Albumin 2.4 L (3.5-5.7) g/dL Calcium panel 04/11/17 Range/Units 04:20 Calcium 7.9 L (8.6-10.3) mg/dL Albumin 2.4 L (3.5-5.7) g/dL Pituitary panel 04/11/17 Range/Units 04:20 Sodium 144 (136-145) mEq/L Potassium 3.6 (3.5-5.1) mEq/L Chloride 106 (98-107) mEq/L Carbon Dioxide 31 H (23-29) mEq/L BUN 46 H (8-23) mg/dL Creatinine 0.83 (0.60-1.20) mg/dL Glucose 174 H (70-105) mg/dL Calcium 7.9 L (8.6-10.3) mg/dL Adrenal panel 04/11/17 Range/Units 04:20 Sodium 144 (136-145) mEq/L Potassium 3.6 (3.5-5.1) mEq/L Chloride 106 (98-107) mEq/L Carbon Dioxide 31 H (23-29) mEq/L BUN 46 H (8-23) mg/dL Creatinine 0.83 (0.60-1.20) mg/dL Glucose 174 H (70-105) mg/dL Calcium 7.9 L (8.6-10.3) mg/dL Total Bilirubin 0.3 (0.3-1.0) mg/dL AST 45 H (13-39) Units/L ALT 33 (7-52) Units/L Alkaline Phosphatase 76 (34-104) Units/L Albumin 2.4 L (3.5-5.7) g/dL - VTE Documentation of Mechanical Device: Intermittent pneumatic compression device Consult Discharge Plan - Plan Instructions: Inguinal Hernia (GEN), Tube Feeding (GEN) Additional Instructions: G-tube: 1) do not put any medications, liquids, flushes, or any substances in the gastric tube. 2) Alternate gastric tube clamped and to gravity every 4 hours. J-tube: 1) tube feeds per J-tube. 2) Q4 flushes with free water. 3a) Ok to give medications through J-tube if necessary; 3b) otherwise time PO medicaitons for when Gastric tube is clamped. 4) Ensure that all medications have been completely liquefied (no particles are to be seen) prior to administration through the J-tube as this tube is easily clogged. 5) Also flush with 200 and mouth after all medication administration. Drain Site Care TID: Remove split cause. Wash with antibacterial soap. Pat dry. Apply gautos/miconazole extra thick around the drain sites and on the surrounding erythema. Cover with split cause. Tape to secure. Midline Incision wound care: wash daily with antibacterial soap. Leave open to air. Consideration for staple removal will be completed at her follow-up visit. Diet: Clear liquid diet. Do not advance past clear liquids. Tube feeds per fireman recommendations per J-tube. GI: Continue miralax and dulcolax suppositories BID until having daily BMs. Then may decrease to PRN. Continue aggressive pulmonary toileting after d/c Referrals: Kayden Castillo MD [Partnered Physician] - 05/18/17 8:55 am Memo Cody MD [Primary Care Provider] - Adeline Bingham CNP [Advanced Practice Nurse] - 04/30/17 8:40 am Prescriptions: Bisacodyl [Dulcolax] 10 mg RC DAILY #30 supp.rect Miconazole w/zinc oxide&karaya [Antifungal Extra Thick] 92 appl TP TID 30 Days # 2 tube Polyethylene Glycol 3350 [MiraLAX] 17 gm PO BID #60 powd.pack <Kayden Castillo - Last Filed: 04/13/17 08:27> Date of Encounter: 04/11/17 Objective Vital Signs - Last 8 Hours Temp Pulse Resp BP Pulse Ox 04/13/17 07:57 16 96 02/06/18 07:03 97.6 F 77 16 106/68 95 04/13/17 05:16 98.6 F 86 15 133/56 96 04/13/17 03:44 18 92 Intake and Output 04/12/17 04/13/17 04/13/17 23:59 07:59 15:59 Intake Total 1289 / 1289 200 / 200 Output Total 1450 / 1450 450 / 450 Balance -161 / -161 -250 / -250 Intake: Tube Feeding 739 / 739 Free Water 200 / 200 Free Water Intake Amount 350 / 350 200 / 200 Output: Gastric Tube Lavage Amount 1450 / 1450 LLQ 1450 / 1450 Wound Drainage 450 / 450 left upper abdomen 2 450 / 450 Other: Stool Size Smear Stool Consistency loose formed Stool Characteristics Foamy Stool Color Brown # Voids 1 # Urine Diapers 1 1 Blood Glucose* 130 148 - Labs 04/13/17 06:47 04/12/17 03:38 - Attending Attestation I examined this patient and my medical decision-making was reviewed with the Resident Physician. I agree with the documented findings, disposition and treatment plan as described except to the extent set forth below. The patient is seen and evaluated on morning rounds with rest. She has good bowel sounds. Jejunostomy tube feedings are going well. We will intermittently clamp the gastrostomy tube 4 hours on and 4 hours off. Kayden Castillo MD FACS
[2017-04-11] MEDS: Insulin LISPRO 300 UNITS/3 ML VIAL SQ SCH ×6 (10:32→21:11)
[2017-04-11] MEDS: Furosemide Oral Soln 40 MG/4 ML UDC PO SCH (10:35)
[2017-04-11] MEDS: Bisacodyl 10 MG RECTAL SUPPOSITORY RC SCH ×2 (10:36→22:14)
--- NOTE | 2017-04-11 10:55 | Internal Med Progress Note ---
Date of Encounter: 04/11/17 Time of Encounter: 10:53 - Assessment and plan (1) Acute respiratory failure with hypoxia Current Visit: Yes Status: Acute Assessment and plan: - Acute respiratory failure with hypoxia secondary to aspiration of Gastrograffin for upper GI series with pleural effusion component -Repeat CTA showing mild right and large left pleural effusion, both improved from previous. - Pt currently tolerating 4L with O2 sats in high 90s this AM. - No reported home O2 requirement. - Dyspnea improved with diuresis - Pulmonology following, appreciate recommendations - Patient is -15 L since admission Plan - Discussed with pulmonary, do not anticipate bronchoscopy she is clinically improving with diuretics - Continue Lasix, will go back to IV as she is not taking PO meds, BiPAP when necessary. Carefully monitor of kidney function - Also suspect some anxiety component of SOB, improved with Ativan 0.5mg. - Management as below 04/10/2017 Acute respiratory failure with hypoxia. Presenting complaint after patient has aspiration from Gastrografin. This morning patient's symptoms were much better and it appears that she has shortness of breath is likely secondary to her anxiety. Patient denies any cough or mucopurulent expectoration. Pulmonology was on the board and we will follow their recommendations. 04/11/2017 Patient's shortness of breath is progressively getting better. Denies any use of accessory muscles of respiration. Oxygen saturation along with pulses between appropriate and acceptable limits. Denies chest pain, nausea, abdominal pain, dizziness and diarrhea Noted that patient's hemoglobin is 6.8. We will transfuse 2 units of packed red blood cells. Close monitoring of the vital signs and respiratory status. (2) Aspiration into respiratory tract Current Visit: Yes Status: Acute Assessment and plan: - As above. 04/10/2017 At this point patient does not have any risk of aspiration. We will continue to monitor patient very closely. 04/11/2017 No evidence of aspiration Qualifiers: Encounter type: subsequent encounter Qualified Code(s): T17.908D - Unspecified foreign body in respiratory tract, part unspecified causing other injury, subsequent encounter (3) Atrial fibrillation Current Visit: Yes Status: Acute Assessment and plan: Patient has chronic atrial fibrillation. 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 - Patient is hemodynamically stable and appears to be improving - Tolerating intermittent O2 via NC and room air at this time - Completed an 8 day course of Zosyn during stay for possible aspiration Plan: Nothing by mouth, gastric feeding tubes CTA shows improvement of pleural effusions and increased airspace No plan for bronchoscopy as patient is clinically improving and CTA this morning is improved from previous We will continue to monitor at this time Echo 04/10/2017 Patient has successfully completed the course of antibiotics. Patient does not need any further antibiotics at this point. Oxygen requirement is appropriate for her age and underlying comorbid conditions. 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 Gastric tube feedings at recommendation. - G-tube clamped again this morning. Tolerating intermittent clamping so far. Will monitor. Management per surgery - Night team reports j-tube being clogged. Surgery team aware -Hypoactive bowel sounds. Reports flatus, 1 BM. Diet advancement per surgery - Pathology results: folcally ulcerated mucosa, acute on chronic inflammation, transmural necrosis with clear margins. Plan - Further management per surgery - Feeds per gastric tube, reglan, Zofran, pain control - Pt is to remain NPO until gastric tube output decreases. Recommend Upper GI series before PO intake. 04/10/2017 Management as per surgery. (6) DVT (deep venous thrombosis) Current Visit: Yes Status: Acute Assessment and plan: - DVT as demonstrated on ultrasound in right upper extremity, brachial - PICC line in place, noted flow around clot - Discussed with PICC team, recommended keep PICC line in place as there is flow around and left UE has superficial venous thrombosis and high chance of DVT - Discussed anticoagulation and we will continue lovenox 80 mg BID - No symptoms, swelling measured at 32 cm, +3 cm from baseline done at PICC line placement. Plan Continue Lovenox Qualifiers: DVT location: upper extremity Affected thrombotic vein of extremity: brachial Chronicity: acute Laterality: right Qualified Code(s): I82.621 - Acute embolism and thrombosis of deep veins of right upper extremity - Subjective Interval history: Patient seen and examined. Chart reviewed. Patient is comfortably lying in the bed. Along with me surgical nurse practitioner was present in the room. Patient denies any ongoing acute/active pain. 04/11/2017 Patient seen and examined. Chart reviewed. Patient is comfortably sitting in a chair. Patient occasionally claims shortness of breath. Patient denies chest pain, nausea, vomiting, abdominal pain, dizziness and diarrhea. - Constitutional Vitals: Temp Pulse Resp BP Pulse Ox 97.9 F 94 14 112/54 94 04/11/17 09:42 04/11/17 09:42 04/11/17 09:42 04/11/17 09:42 04/11/17 09:42 General appearance: Present: A&O X 3, answers questions appropriately - Head Head exam: Present: atraumatic, normocephalic - Eye Eye exam: Present: PERRL, conjuntiva pink, sclera anicteric Pupils: Present: PERRL - Neck Neck exam general surgery: Present: supple, trachea midline. Absent: lymphadenopathy - Respiratory Respiratory exam: Present: CTAB. Absent: accessory muscle use, rales, rhonchi, wheezes - Cardiovascular Cardiovascular exam: Present: RRR, +S1, +S2. Absent: diastolic murmur, gallop, rubs, systolic murmur - GI/Abdominal GI/Abdominal exam: Present: normal bowel sounds, soft, no peritoneal signs. Absent: distended, tenderness - Extremities Exam Extremities exam: Present: warm, radial pulses palpable and symmetrical. Absent : calf tenderness, cyanotic, pedal edema - Neurological Exam Neurological exam: Present: CN II-XII intact, oriented X3, no focal deficits. Absent: pronater drift, facial droop, speech deficit - Skin Skin exam: Present: dry, intact Internal Medicine: Result - Labs CBC & Chem 7: 04/11/17 04:20 04/11/17 04:20 Labs: Short CBC 04/11/17 Range/Units 04:20 WBC 7.2 (4.3-11.1) K/mcL Hgb 6.8 L (11.5-15.4) g/dL Hct 22.5 L (35.3-44.9) % Plt Count 231 (140-400) K/mcL Neutrophils # 5.1 (1.6-8.9) K/mcL BMP 04/11/17 04:20 Sodium 144 Potassium 3.6 Chloride 106 Carbon Dioxide 31 H BUN 46 H Creatinine 0.83 Glucose 174 H Calcium 7.9 L Liver Function 04/11/17 Range/Units 04:20 Total Bilirubin 0.3 (0.3-1.0) mg/dL AST 45 H (13-39) Units/L ALT 33 (7-52) Units/L Alkaline Phosphatase 76 (34-104) Units/L Albumin 2.4 L (3.5-5.7) g/dL - ABG Interpretation ABG results: ABG ABG pH 7.47 pH Units (7.32-7.45) H 04/05/17 10:35 ABG pCO2 40 mmHg (35-45) 04/05/17 10:35 ABG pO2 82 mmHg (85-104) L 04/05/17 10:35 ABG O2 Saturation 97 % (95-98) 04/05/17 10:35 PT/INR, D-dimer PT 11.5 Seconds (9.4-12.1) 04/01/17 19:25 - VTE Documentation of Mechanical Device: Intermittent pneumatic compression device Consult Discharge Plan - Plan Referrals: Memo Cody MD [Primary Care Provider] -
[2017-04-11] MEDS: D5% in 0.45% NACL 1,000 ML IVC SCH ×3 (13:44→23:07)
[2017-04-11] MEDS ORDERED: 0.9 % Sodium Chloride 500 ML ONE (14:27)
[2017-04-11] MEDS ORDERED: 0.9 % Sodium Chloride 250 ML ONE (21:17)
[2017-04-11] MEDS ORDERED: *HR* LORazepam 2 MG/ML VIAL IVP ONE (23:10)
[2017-04-12] MEDS: Insulin LISPRO 300 UNITS/3 ML VIAL SQ SCH ×6 (00:07→21:15)
[2017-04-12] MEDS: *HR* Metoprolol 5 MG/5 ML VIAL IVP SCH ×4 (00:08→18:05)
[2017-04-12] MEDS: OXYCODONE Oral CONC 10 MG/0.5 ML ORAL.SYG SL PRN ×2 (02:48→08:55)
[2017-04-12] MEDS: Ipratropium/Albuterol Neb 3 ML IH SCH ×7 (03:42→23:49)
[2017-04-12 03:56] LABS: Basophils % 0.2 %; Eosinophils # 0.1 K/mcL (0.0-0.6); Eosinophils % 0.9 %; Hematocrit 26.8 % (35.3-44.9); Immature Granulocytes % 0.3 % (0-4); Lymphocytes # 1.4 K/mcL (0.6-4.6); Lymphocytes % 21.6 %; Mean Corpuscular HGB Conc 31.3 g/dL (31.6-35.5); Mean Corpuscular Hemoglobin 27.5 pg (28.0-33.3); Mean Corpuscular Volume 87.6 fL (83.0-100.0); Mean Platelet Volume 10.7 fL (9.4-12.4); Monocytes # 0.4 K/mcL (0.0-1.3); Monocytes % 5.4 %; Platelet Count 227 K/mcL (140-400); Red Blood Count 3.06 M/mcL (3.82-4.97); Red Cell Distribution Width 15.6 % (11.5-14.5); Segmented Neutrophils % 71.6 %
[2017-04-12 04:10] LABS: Hemoglobin 8.4 g/dL (11.5-15.4); Neutrophils # 4.7 K/mcL (1.6-8.9)
[2017-04-12 04:22] LABS: Alanine Aminotransferase 32 Units/L (7-52); Albumin 2.4 g/dL (3.5-5.7); Albumin/Globulin Ratio 0.8 (1.1-2.2); Alkaline Phosphatase 81 Units/L (34-104); Aspartate Amino Transferase 42 Units/L (13-39); BUN/Creatinine Ratio 57 (6-26); Bilirubin,Total 0.4 mg/dL (0.3-1.0); Blood Urea Nitrogen 38 mg/dL (8-23); Calcium 7.9 mg/dL (8.6-10.3); Carbon Dioxide 30 mEq/L (23-29); Chloride 105 mEq/L (98-107); Globulin 3.1 g/dL (2.4-3.5); Glucose 126 mg/dL (70-105); Osmolality,Calculated 303 (280-300); Potassium 3.7 mEq/L (3.5-5.1); Sodium 141 mEq/L (136-145); Total Protein 5.5 g/dL (6.4-8.9); eGFR For African Americans > 60 (> 60); eGFR For Non-African Americans > 60 (> 60)
[2017-04-12] MEDS: D5% in 0.45% NACL 1,000 ML IVC SCH (04:38)
[2017-04-12 04:53] LABS: Platelet Estimate Normal (Normal)
[2017-04-12] MEDS: Metoclopramide 10 MG/2 ML VIAL IVP SCH ×3 (05:09→18:05)
[2017-04-12] MEDS: *HR* Enoxaparin 60 MG/0.6 ML SYRINGE SQ SCH ×2 (05:11→18:05)
[2017-04-12] MEDS: Budesonide/Formoterol 160/4.5 MDI IH SCH ×2 (08:30→19:45)
[2017-04-12] MEDS: Furosemide Oral Soln 40 MG/4 ML UDC PO SCH (08:56)
[2017-04-12] MEDS: Bisacodyl 10 MG RECTAL SUPPOSITORY RC SCH ×2 (08:58→22:49)
--- NOTE | 2017-04-12 09:37 | Internal Med Progress Note ---
<Hood Valle - Last Filed: 04/12/17 13:07> Date of Encounter: 04/12/17 Time of Encounter: 09:36 - Assessment and plan (1) Acute respiratory failure with hypoxia Current Visit: Yes Status: Acute Assessment and plan: - Acute respiratory failure with hypoxia secondary to aspiration of Gastrograffin for upper GI series with pleural effusion component -Repeat CTA showing mild right and large left pleural effusion, both improved from previous. - Pt currently tolerating 5L with O2 sats in high 90s this AM. - No reported home O2 requirement. - Dyspnea improved with diuresis - Pulmonology following, appreciate recommendations - Patient is -13.6 L since admission Plan - Discussed with pulmonary, do not anticipate bronchoscopy she is clinically improving with diuretics - She was transitioned to oral solution lasix 20 mg PO, will likely need to increase. - Also suspect some anxiety component of SOB, improved with Ativan 0.5mg. -She reports improvement of breathing however rales on auscultation. - Encouraged incentive inspirometry and sitting up. 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 - G-tube clamped again this morning. Tolerating intermittent clamping so far. Will monitor. Management per surgery -Hypoactive bowel sounds. Reports flatus, 1 BM yesterday. Diet advancement per surgery. May start clears today - Pathology results: folcally ulcerated mucosa, acute on chronic inflammation, transmural necrosis with clear margins. Plan - Further management per surgery - Feeds per gastric tube, reglan, Zofran, pain control - Pt is to remain NPO until gastric tube output decreases. Recommend Upper GI series before PO intake. - She is OK to discharge to rehab per surgery team. 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 - Patient is hemodynamically stable and appears to be improving - Tolerating intermittent O2 via NC and room air at this time - Completed an 8 day course of Zosyn during stay for possible aspiration Plan: Nothing by mouth, gastric feeding tubes CTA shows improvement of pleural effusions and increased airspace No plan for bronchoscopy as patient is clinically improving and CTA this morning is improved from previous We will continue to monitor at this time Duonebs (4) Aspiration into respiratory tract Current Visit: Yes Status: Acute Assessment and plan: - As above. - Low risk of aspiration at this point as pt is NPO. Surgery recommended swallow eval prior to initiation of diet. - Has completed course of Zosyn previously in stay. - Diet advancement per surgery Qualifiers: Encounter type: subsequent encounter Qualified Code(s): T17.908D - Unspecified foreign body in respiratory tract, part unspecified causing other injury, subsequent encounter (5) Tachycardia Current Visit: Yes Status: Acute Assessment and plan: - Noted atrial tachycardia with rates in 120s. -Heart rate has been moderately controlled since transfer from ICU in 90s, low 100s - Per cardiology, start ASA when safe from a surgical perspective. Plan - Continue to monitor - Continue metoprolol 5mg q6hr - Continue home BB when able to tolerate PO intake. (6) Hypertension Current Visit: Yes Status: Acute Assessment and plan: - Improved today. most recently 113/52 Continue current meds. Qualifiers: Hypertension type: essential hypertension Qualified Code(s): I10 - Essential (primary) hypertension (7) DVT (deep venous thrombosis) Current Visit: Yes Status: Acute Assessment and plan: - DVT as demonstrated on ultrasound in right upper extremity, brachial - PICC line in place, noted flow around clot - Discussed with PICC team, recommended keep PICC line in place as there is flow around and left UE has superficial venous thrombosis and high chance of DVT - Discussed anticoagulation and we will continue lovenox 80 mg BID - No symptoms, swelling measured at 32 cm, +3 cm from baseline done at PICC line placement. Plan Continue Lovenox Qualifiers: DVT location: upper extremity Affected thrombotic vein of extremity: brachial Chronicity: acute Laterality: right Qualified Code(s): I82.621 - Acute embolism and thrombosis of deep veins of right upper extremity (8) Abdominal pain Current Visit: Yes Status: Acute Assessment and plan: - New complaint of abdominal pain located in LLQ as well as left hip and thigh pain following clamping of G-tube. - Patient has been receiving Toradol scheduled for pain, liquid oxycodone with good relief. - Xray of hip revealed no acute process, degenerative changes. - UA ordered by surgery and pending - CT hip and thigh show possible contusion of left thigh and small fat and bowel containing left inguinal hernia. Surgery following. Plan - Will continue pain control. - Conservative management at this time, no evidence of strangulation Qualifiers: Abdominal location: unspecified location Qualified Code(s): R10.9 - Unspecified abdominal pain (9) DVT prophylaxis Current Visit: Yes Status: Acute Assessment and plan: - Lovenox for DVT as above - Time Spent With Patient 25 - 35 minutes - Subjective Interval history: Patient was seen and examined at bedside this AM. She is lethargic during interview this morning but states she is feeling OK. No other complaints at this time. 1BM today. - Constitutional Vitals: Temp Pulse Resp BP Pulse Ox 98.9 F 82 20 113/52 93 04/12/17 07:05 04/12/17 07:05 04/12/17 08:36 04/12/17 07:05 04/12/17 08:36 General appearance: Present: A&O X 3, answers questions appropriately Exam: Gen.: Vitals noted. No acute distress. AAOx3 HEENT: PERRL/EOMI, oropharynx clear, Normocephalic, atraumatic, MMM Cardiac:Irregular, no murmur, +S1/S2 Pulmonary:Diffuse rales. Mildly worsened from previous. equal chest expansion Abdomen: soft, nontender, BS noted, no guarding MSK: ROM intact, no joint swelling noted Extremities: Mild swelling in RUE. no BLE edema, nontender calf, no cyanosis or clubbing Neuro: A&Ox3, moves all extremities, no focal deficits Psych: Appropriate mood and behavior Internal Medicine: Result - Labs CBC & Chem 7: 04/12/17 03:38 04/12/17 03:38 Labs: Short CBC 04/12/17 Range/Units 03:38 WBC 6.6 (4.3-11.1) K/mcL Hgb 8.4 L D (11.5-15.4) g/dL Hct 26.8 L (35.3-44.9) % Plt Count 227 (140-400) K/mcL Neutrophils # 4.7 (1.6-8.9) K/mcL BMP 04/12/17 03:38 Sodium 141 Potassium 3.7 Chloride 105 Carbon Dioxide 30 H BUN 38 H Creatinine 0.67 Glucose 126 H Calcium 7.9 L Liver Function 04/12/17 Range/Units 03:38 Total Bilirubin 0.4 (0.3-1.0) mg/dL AST 42 H (13-39) Units/L ALT 32 (7-52) Units/L Alkaline Phosphatase 81 (34-104) Units/L Albumin 2.4 L (3.5-5.7) g/dL - ABG Interpretation ABG results: ABG ABG pH 7.47 pH Units (7.32-7.45) H 04/05/17 10:35 ABG pCO2 40 mmHg (35-45) 04/05/17 10:35 ABG pO2 82 mmHg (85-104) L 04/05/17 10:35 ABG O2 Saturation 97 % (95-98) 04/05/17 10:35 PT/INR, D-dimer PT 11.5 Seconds (9.4-12.1) 04/01/17 19:25 - VTE Documentation of Mechanical Device: Intermittent pneumatic compression device Consult Discharge Plan - Plan Instructions: Inguinal Hernia (GEN), Tube Feeding (GEN) Additional Instructions: Alternate G-tube clamped 4 hours, open for 4 hours to child. Do not put any tube feed, medications, or free water through the G-tube. G-tube clamped. If patient has n/v, may return to [facility]. Continue J-tube with tube feeds. OK to give meds through J-tube. Please ensure that all medications are liquified prior to adminsitration through J-tube and flush with 200 ml water afterwards. PT/OT for mobilization and discharge planning. TF at goal through J-tube. Please ensure free water flushes Q4Hs to prevent clogging. Left J-tube: TF running at goals (Osmolite 1.2 jimenez) 55; OK to give meds through J-tube (Only if crushed and dissolved to liquid status. Flush with 200 ml after med administration and Q4H; Miralax BID per J-tube. Dulcolax suppositories BID until having BMs, then may decrease to as needed Peg tube: alternate Q4H hours clamped, then placed to gravity. DO not use Gastric tube for any water, meds, or feeds. Daily Wound and Drain care: Wash abdomen daily with antibacterial soap. Apply zinc oxide cream around drain sites. Cover drain sites with a split cause. Leave midline abdominal incision open to air or cover with a dry dressing for comfort. Tape to secure. Referrals: Kayden Castillo MD [Partnered Physician] - 05/18/17 8:55 am Memo Cody MD [Primary Care Provider] - Adeline Bingham CNP [Advanced Practice Nurse] - 04/30/17 8:40 am <Justin Amor P - Last Filed: 04/12/17 16:31> Date of Encounter: 04/12/17 - Assessment and plan (1) Acute respiratory failure with hypoxia Current Visit: Yes Status: Acute (2) Aspiration into respiratory tract Current Visit: Yes Status: Acute Qualifiers: Encounter type: subsequent encounter Qualified Code(s): T17.908D - Unspecified foreign body in respiratory tract, part unspecified causing other injury, subsequent encounter (3) Atrial fibrillation Current Visit: Yes Status: Acute Qualifiers: Atrial fibrillation type: chronic Qualified Code(s): I48.2 - Chronic atrial fibrillation (4) 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 Current Visit: Yes Status: Acute (5) 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 Current Visit: Yes Status: Acute (6) DVT (deep venous thrombosis) Current Visit: Yes Status: Acute Qualifiers: DVT location: upper extremity Affected thrombotic vein of extremity: brachial Chronicity: acute Laterality: right Qualified Code(s): I82.621 - Acute embolism and thrombosis of deep veins of right upper extremity - Constitutional Vitals: Temp Pulse Resp BP Pulse Ox 98 F 85 16 116/68 95 04/12/17 15:04 04/12/17 15:04 04/12/17 15:04 04/12/17 15:04 04/12/17 15:04 Internal Medicine: Result - Labs CBC & Chem 7: 04/12/17 03:38 04/12/17 03:38 Labs: Short CBC 04/12/17 Range/Units 03:38 WBC 6.6 (4.3-11.1) K/mcL Hgb 8.4 L D (11.5-15.4) g/dL Hct 26.8 L (35.3-44.9) % Plt Count 227 (140-400) K/mcL Neutrophils # 4.7 (1.6-8.9) K/mcL BMP 04/12/17 03:38 Sodium 141 Potassium 3.7 Chloride 105 Carbon Dioxide 30 H BUN 38 H Creatinine 0.67 Glucose 126 H Calcium 7.9 L Liver Function 04/12/17 Range/Units 03:38 Total Bilirubin 0.4 (0.3-1.0) mg/dL AST 42 H (13-39) Units/L ALT 32 (7-52) Units/L Alkaline Phosphatase 81 (34-104) Units/L Albumin 2.4 L (3.5-5.7) g/dL - ABG Interpretation ABG results: ABG ABG pH 7.47 pH Units (7.32-7.45) H 04/05/17 10:35 ABG pCO2 40 mmHg (35-45) 04/05/17 10:35 ABG pO2 82 mmHg (85-104) L 04/05/17 10:35 ABG O2 Saturation 97 % (95-98) 04/05/17 10:35 PT/INR, D-dimer PT 11.5 Seconds (9.4-12.1) 04/01/17 19:25 - Attending Attestation I examined this patient and my medical decision-making was reviewed with the Resident Physician. I agree with the documented findings, disposition and treatment plan as described except to the extent set forth below. 81/female Admitted with nausea vomiting. 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 Underwent very completed surgery and presently doing well with mainly surgery managing the care. As per surgery patient will be ready for ECF in next 3-4 days.
--- NOTE | 2017-04-12 10:26 | General Surgery Progress Note ---
<Adeline Bingham Shannan - Last Filed: 04/12/17 10:58> Date of Encounter: 04/12/17 Time of Encounter: 07:45 - Assessment and Plan (1) Hiatal hernia Current Visit: Yes Status: Acute 04/12/2017 : POD #14 as below. Final pathology noted Stomach, partial gastrectomy; Focally ulcerated mucosa, acute and chronic inflammation and focal transmural necrosis; Margins viable.Ms Mackenzie reports some improvement in her abdominal discomfort. Overall improvement in abdominal exam. RN reports the J-tube is a little sluggish. Pt denies BM today, but reports flatus. MARILOU drain ordered to be d/c'd on Wednesday was not completed. Bedside RN did complete this today. Plan: 1. Continue supportive care and discomfort management. 2. Alternate G-tube clamped 4 hours, open for 4 hours to child. Do not put any tube feed, medications, or free water through the G-tube. G-tube clamped. If patient has n/v, may return to [facility]. 3. Continue J-tube with tube feeds. OK to give meds through J-tube. Please ensure that all medications are liquified prior to adminsitration through J-tube and flush with 200 ml water afterwards. 4. PT/OT for mobilization and discharge planning. She is recommended to have inpatient rehab/swing bed DC. Discharge planning per primary team. 5. Continue Aggressive pulmonary toileting per primary team/pulmonary 6. Continue DVT prophylaxis per primary team 7. Continue Protonix 40 mg BID IV for GI prophylaxis 8. TF at goal through J-tube. Please ensure free water flushes Q4Hs to prevent clogging. 9. Miralax BID per J-tube. Dulcolax suppositories BID. Surgery will continue to follow along and make recommendations. OK for d/c to rehab when ok with primary team Left J-tube: TF running at goals (Osmolite 1.2 jimenez) 55; OK to give meds through J-tube (Only if crushed and dissolved to liquid status. Flush with 200 ml after med administration and Q4H; Peg tube: alternate Q4H hours clamped, then placed to gravity. Daily Wound and Drain care: Wash abdomen daily with antibacterial soap. Apply zinc oxide cream around drain sites. Cover drain sites with a split cause. Leave midline abdominal incision open to air or cover with a dry dressing for comfort. Tape to secure. 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 Segmental gastric necrosis. Distal esophageal necrosis) Procedure: #1 reduction of gastric volvulus #2 repair of hiatal hernia #3 debridement and primary repair of distal esophagus #4 resection of gastric necrosis (tangential resection of full-thickness necrotic ulcers times 4) #5 gastrostomy tube #6 jejunostomy tube Anesthesia: BERYLA Surgeon: Kayden Castillo Estimated blood loss (cc): 200 (2) Jejunostomy tube in situ Current Visit: Yes Status: Acute Small bowel obstruction secondary to jejunostomy tube insertion. This is an expected finding due to the placement of the J-tube. Surrounding surgical site is clean, dry, and intact at this time. Plan: J-tube will need to remain in place for 4 weeks. Tube feeds through the J -tube. Medications okay through the J-tube. DO not put anything through the G- tube. Alternate G-tube clamped 4 hours, open for 4 hours to child. Do not put any tube feed, medications, or free water through the G-tube. G-tube clamped. If patient has n/v, may return to [facility]. Clear liquid diet. Do not advance diet. (3) Inguinal hernia Current Visit: Yes Status: Acute Incidental finding Fat- and small bowel-containing left inguinal hernia and fat-containing right inguinal hernia. Noted on CT on 04/09/2017 there is no acute urgent surgical intervention indicated at this time. Patient may follow up with Dr. Castillo as an outpatient regarding above if the need arises. Qualifiers: Obstruction and gangrene presence: without obstruction or gangrene Laterality: bilateral Recurrence: not specified as recurrent Qualified Code( s): K40.20 - Bilateral inguinal hernia, without obstruction or gangrene, not specified as recurrent (4) Aspiration into respiratory tract Current Visit: Yes Status: Acute Management per primary medicine. Currently pt is on O2 per nasal cannula. No signs of aspiration on previous modified swallow exam. Qualifiers: Encounter type: subsequent encounter Qualified Code(s): T17.908D - Unspecified foreign body in respiratory tract, part unspecified causing other injury, subsequent encounter (5) DVT (deep venous thrombosis) Current Visit: Yes Status: Acute Per Primary Qualifiers: DVT location: upper extremity Affected thrombotic vein of extremity: brachial Chronicity: acute Laterality: right Qualified Code(s): I82.621 - Acute embolism and thrombosis of deep veins of right upper extremity (6) Abnormal CAT scan Current Visit: Yes Status: Acute CT of hip and LLE noted per primary team. Incidental findings in the report included below. Will review with Dr. Castillo: Heterogeneous enlargement of left iliacus muscle with mild degree of adjacent fat stranding to the left iliopsoas. Findings are felt to be most consistent with strain/contusion of the iliacus with edema, hemorrhage and partial tearing. Mass lesion or infectious etiology felt unlikely, but suggest continued follow-up to assure resolution. Fat- and small bowel-containing left inguinal hernia and fat-containing right inguinal hernia. Subjective Patient reports: no new complaints, feels better, pain is less, tolerating liquids well, voiding w/o difficulty, flatus, no bowel movement, afebrile Objective Vital Signs - Last 8 Hours Temp Pulse Resp BP Pulse Ox 04/12/17 09:34 96 04/12/17 08:36 20 93 04/12/17 07:05 98.9 F 82 16 113/52 97 04/12/17 04:00 97.9 F 92 16 122/55 97 04/12/17 03:42 18 92 Intake and Output 04/11/17 04/12/17 04/12/17 23:59 07:59 15:59 Intake Total 1150 / 1150 550 / 550 320 / 320 Output Total 910 / 910 100 / 100 Balance 240 / 240 450 / 450 320 / 320 Intake: Oral 300 / 300 0 / 0 120 / 120 Blood Product 350 / 350 350 / 350 Rbcs Leuko Poor As-1 Unit 350 / 350 [id number] Rbcs Leuko Poor As-1 Unit 0 / 0 350 / 350 [id number] Free Water Intake Amount 500 / 500 200 / 200 200 / 200 Output: Urine 0 / 0 0 / 0 Gastric Drainage 900 / 900 100 / 100 Wound Drainage 10 10 0 / 0 Left Abdomen MARILOU 10 0 / 0 Other: Meal Dinner Breakfast Percent of Meal Consumed 0% Stool Size Small Stool Consistency loose soft Stool Color Brown # Voids 1 # Urine Diapers 1 1 # Bowel Movements 1 Blood Glucose* 147 178 - General physical appearance no distress, no pain, other (generalized weakness/deconditioning) - ENT atraumatic, normocephalic - Neck Neck exam: trachea midline, no venous distension - Respiratory other (decreased) - Cardiovascular Cardiovascular exam: Present: distant heart sounds - Abdomen Abdomen: Present: bowel sounds present, soft, tender (Expected postoperative tenderness), wound (See assessment and plan for descriptions) Hernia: none (none palpable) - Incision Incision: Present: clean and dry, intact - Integumentary no abnormal pigmentation - Neurologic normal sensation - Musculoskeletal normal posture, other (Generalized deconditioning noted) - Psychiatric oriented to time, oriented to person, oriented to place - Labs 04/12/17 03:38 04/12/17 03:38 Diabetes panel 04/12/17 Range/Units 03:38 Sodium 141 (136-145) mEq/L Potassium 3.7 (3.5-5.1) mEq/L Chloride 105 (98-107) mEq/L Carbon Dioxide 30 H (23-29) mEq/L BUN 38 H (8-23) mg/dL Creatinine 0.67 (0.60-1.20) mg/dL Glucose 126 H (70-105) mg/dL Calcium 7.9 L (8.6-10.3) mg/dL AST 42 H (13-39) Units/L ALT 32 (7-52) Units/L Alkaline Phosphatase 81 (34-104) Units/L Albumin 2.4 L (3.5-5.7) g/dL Calcium panel 04/12/17 Range/Units 03:38 Calcium 7.9 L (8.6-10.3) mg/dL Albumin 2.4 L (3.5-5.7) g/dL Pituitary panel 04/12/17 Range/Units 03:38 Sodium 141 (136-145) mEq/L Potassium 3.7 (3.5-5.1) mEq/L Chloride 105 (98-107) mEq/L Carbon Dioxide 30 H (23-29) mEq/L BUN 38 H (8-23) mg/dL Creatinine 0.67 (0.60-1.20) mg/dL Glucose 126 H (70-105) mg/dL Calcium 7.9 L (8.6-10.3) mg/dL Adrenal panel 04/12/17 Range/Units 03:38 Sodium 141 (136-145) mEq/L Potassium 3.7 (3.5-5.1) mEq/L Chloride 105 (98-107) mEq/L Carbon Dioxide 30 H (23-29) mEq/L BUN 38 H (8-23) mg/dL Creatinine 0.67 (0.60-1.20) mg/dL Glucose 126 H (70-105) mg/dL Calcium 7.9 L (8.6-10.3) mg/dL Total Bilirubin 0.4 (0.3-1.0) mg/dL AST 42 H (13-39) Units/L ALT 32 (7-52) Units/L Alkaline Phosphatase 81 (34-104) Units/L Albumin 2.4 L (3.5-5.7) g/dL - VTE Documentation of Mechanical Device: Intermittent pneumatic compression device Consult Discharge Plan - Plan Instructions: Inguinal Hernia (GEN), Tube Feeding (GEN) Additional Instructions: G-tube: 1) do not put any medications, liquids, flushes, or any substances in the gastric tube. 2) Alternate gastric tube clamped and to gravity every 4 hours. J-tube: 1) tube feeds per J-tube. 2) Q4 flushes with free water. 3a) Ok to give medications through J-tube if necessary; 3b) otherwise time PO medicaitons for when Gastric tube is clamped. 4) Ensure that all medications have been completely liquefied (no particles are to be seen) prior to administration through the J-tube as this tube is easily clogged. 5) Also flush with 200 and mouth after all medication administration. Drain Site Care TID: Remove split cause. Wash with antibacterial soap. Pat dry. Apply gautos/miconazole extra thick around the drain sites and on the surrounding erythema. Cover with split cause. Tape to secure. Midline Incision wound care: wash daily with antibacterial soap. Leave open to air. Consideration for staple removal will be completed at her follow-up visit. Diet: Clear liquid diet. Do not advance past clear liquids. Tube feeds per digital strategy director recommendations per J-tube. GI: Continue miralax and dulcolax suppositories BID until having daily BMs. Then may decrease to PRN. Continue aggressive pulmonary toileting after d/c Referrals: Memo Cody MD [Primary Care Provider] - Adeline Bingham CNP [Advanced Practice Nurse] - 04/30/17 8:40 am Kayden Castillo MD [Partnered Physician] - 05/18/17 8:55 am Prescriptions: Bisacodyl [Dulcolax] 10 mg RC DAILY #30 supp.rect Miconazole w/zinc oxide&karaya [Antifungal Extra Thick] 92 appl TP TID 30 Days # 2 tube Polyethylene Glycol 3350 [MiraLAX] 17 gm PO BID #60 powd.pack <Kayden Castillo - Last Filed: 04/13/17 08:42> Date of Encounter: 04/12/17 Objective Vital Signs - Last 8 Hours Temp Pulse Resp BP Pulse Ox 04/13/17 07:57 16 96 04/13/17 07:03 97.6 F 77 16 106/68 95 04/13/17 05:16 98.6 F 86 15 133/56 96 04/13/17 03:44 18 92 Intake and Output 04/12/17 04/13/17 04/13/17 23:59 07:59 15:59 Intake Total 1289 / 1289 200 / 200 Output Total 1450 / 1450 450 / 450 Balance -161 / -161 -250 / -250 Intake: Tube Feeding 739 / 739 Free Water 200 / 200 Free Water Intake Amount 350 / 350 200 / 200 Output: Gastric Tube Lavage Amount 1450 / 1450 LLQ 1450 / 1450 Wound Drainage 450 / 450 left upper abdomen 2 450 / 450 Other: Stool Size Smear Stool Consistency loose formed Stool Characteristics Foamy Stool Color Brown # Voids 1 # Urine Diapers 1 1 Blood Glucose* 130 148 125 - Labs 04/13/17 06:47 04/12/17 03:38 - Attending Attestation I examined this patient and my medical decision-making was reviewed with the Resident Physician. I agree with the documented findings, disposition and treatment plan as described except to the extent set forth below. The patient is seen in evaluated on morning rounds with resting. She continues to do well. She is having more out of her gastrostomy for now would like to see. We will need to give this more time before can be fully clamped. We will continue with for our interval clamping on her gastrostomy tube to encourage internal drainage of her biliary and pancreatic secretions. Kayden Castillo MD FACS
[2017-04-12] MEDS: Saline Nasal Spray 44 ML BOTTLE NS PRN (13:17)
[2017-04-12] MEDS ORDERED: *HR* LORazepam 2 MG/ML VIAL IVP ONE (21:56)
[2017-04-13] MEDS: Insulin LISPRO 300 UNITS/3 ML VIAL SQ SCH ×6 (00:21→21:54)
[2017-04-13] MEDS: Metoclopramide 10 MG/2 ML VIAL IVP SCH ×4 (01:39→18:32)
[2017-04-13] MEDS: *HR* Metoprolol 5 MG/5 ML VIAL IVP SCH ×4 (01:39→18:32)
[2017-04-13] MEDS: OXYCODONE Oral CONC 10 MG/0.5 ML ORAL.SYG SL PRN ×2 (02:45→11:38)
[2017-04-13] MEDS: Ipratropium/Albuterol Neb 3 ML IH SCH ×6 (03:43→23:54)
[2017-04-13] MEDS: *HR* Enoxaparin 60 MG/0.6 ML SYRINGE SQ SCH ×2 (06:15→18:32)
[2017-04-13 07:21] LABS: Basophils % 0.2 %; Eosinophils # 0.1 K/mcL (0.0-0.6); Eosinophils % 2.1 %; Hematocrit 27.2 % (35.3-44.9); Hemoglobin 8.6 g/dL (11.5-15.4); Immature Granulocytes % 0.4 % (0-4); Lymphocytes # 1.2 K/mcL (0.6-4.6); Lymphocytes % 20.9 %; Mean Corpuscular HGB Conc 31.6 g/dL (31.6-35.5); Mean Corpuscular Hemoglobin 27.5 pg (28.0-33.3); Mean Corpuscular Volume 86.9 fL (83.0-100.0); Mean Platelet Volume 10.8 fL (9.4-12.4); Monocytes # 0.3 K/mcL (0.0-1.3); Monocytes % 5.1 %; Neutrophils # 4.1 K/mcL (1.6-8.9); Platelet Count 260 K/mcL (140-400); Red Blood Count 3.13 M/mcL (3.82-4.97); Red Cell Distribution Width 15.9 % (11.5-14.5); Segmented Neutrophils % 71.3 %
--- NOTE | 2017-04-13 07:42 | General Surgery Progress Note ---
<Adeline Bingham Shannan - Last Filed: 04/13/17 07:38> Date of Encounter: 04/13/17 Time of Encounter: 07:38 - Assessment and Plan (1) Hiatal hernia Current Visit: Yes Status: Acute 04/13/2017: POD #15 as below. Final pathology noted Stomach, partial gastrectomy ; Focally ulcerated mucosa, acute and chronic inflammation and focal transmural necrosis; Margins viable. Anne Marie states her abdominal discomfort is well controlled. She denies nausea, vomiting, or abdominal discomfort. She reports passing gas and having a bowel movement yesterday. Her MARILOU drain was DC'd online 04/12/2017. She reports an appetite. She denies abdominal distention. Ms Leach is ok from a surgical standpoint to BDC to inpatient rehab (d/c planning/management per primary team) Plan: G-tube: 1) do not put any medications, liquids, flushes, or any substances in the gastric tube. 2) Alternate gastric tube clamped and to gravity every 4 hours. J-tube: 1) tube feeds per J-tube. 2) Q4 flushes with free water. 3a) Ok to give medications through J-tube if necessary; 3b) otherwise time PO medicaitons for when Gastric tube is clamped. 4) Ensure that all medications have been completely liquefied (no particles are to be seen) prior to administration through the J-tube as this tube is easily clogged. 5) Also flush with 200 and mouth after all medication administration. Drain Site Care TID: Remove split cause. Wash with antibacterial soap. Pat dry. Apply gautos/miconazole extra thick around the drain sites and on the surrounding erythema. Cover with split cause. Tape to secure. Midline Incision wound care: wash daily with antibacterial soap. Leave open to air. Consideration for staple removal will be completed at her follow-up visit. Diet: Clear liquid diet. Do not advance past clear liquids. Tube feeds per rock picker recommendations per J-tube. GI: Continue miralax and dulcolax suppositories BID until having daily BMs. Then may decrease to PRN. 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 Segmental gastric necrosis. Distal esophageal necrosis) Procedure: #1 reduction of gastric volvulus #2 repair of hiatal hernia #3 debridement and primary repair of distal esophagus #4 resection of gastric necrosis (tangential resection of full-thickness necrotic ulcers times 4) #5 gastrostomy tube #6 jejunostomy tube Anesthesia: SIL Surgeon: Kayden Castillo Estimated blood loss (cc): 200 (2) Jejunostomy tube in situ Current Visit: Yes Status: Acute Small bowel obstruction secondary to jejunostomy tube insertion. This is an expected finding due to the placement of the J-tube. Surrounding surgical site is drain sites with small amount of leaking around the tube and errythema. Surgery is hopeful for the J-tube to remain in place and viable for 4 weeks. G-tube: 1) do not put any medications, liquids, flushes, or any substances in the gastric tube. 2) Alternate gastric tube clamped and to gravity every 4 hours. J-tube: 1) tube feeds per J-tube. 2) Q4 flushes with free water. 3a) Ok to give medications through J-tube if necessary; 3b) otherwise time PO medicaitons for when Gastric tube is clamped. 4) Ensure that all medications have been completely liquefied (no particles are to be seen) prior to administration through the J-tube as this tube is easily clogged. 5) Also flush with 200 and mouth after all medication administration. Drain Site Care TID: Remove split cause. Wash with antibacterial soap. Pat dry. Apply gautos/miconazole extra thick around the drain sites and on the surrounding erythema. Cover with split cause. Tape to secure. (3) Inguinal hernia Current Visit: Yes Status: Acute Incidental finding on CT. Fat- and small bowel-containing left inguinal hernia and fat-containing right inguinal hernia. Noted on CT on 04/09/2017 there is no acute urgent surgical intervention indicated at this time. Patient may follow up with Dr. Castillo as an outpatient regarding above if the need arises. Will review at follow-up visits. Qualifiers: Obstruction and gangrene presence: without obstruction or gangrene Laterality: bilateral Recurrence: not specified as recurrent Qualified Code( s): K40.20 - Bilateral inguinal hernia, without obstruction or gangrene, not specified as recurrent (4) Aspiration into respiratory tract Current Visit: Yes Status: Acute Management per primary medicine. Currently pt is on O2 per nasal cannula. No signs of aspiration on previous modified swallow exam. Qualifiers: Encounter type: subsequent encounter Qualified Code(s): T17.908D - Unspecified foreign body in respiratory tract, part unspecified causing other injury, subsequent encounter (5) DVT (deep venous thrombosis) Current Visit: Yes Status: Acute Per Primary Qualifiers: DVT location: upper extremity Affected thrombotic vein of extremity: brachial Chronicity: acute Laterality: right Qualified Code(s): I82.621 - Acute embolism and thrombosis of deep veins of right upper extremity (6) Abnormal CAT scan Current Visit: Yes Status: Acute CT of hip and LLE noted per primary team. Incidental findings in the report included below. Will review with Dr. Castillo: Heterogeneous enlargement of left iliacus muscle with mild degree of adjacent fat stranding to the left iliopsoas. Findings are felt to be most consistent with strain/contusion of the iliacus with edema, hemorrhage and partial tearing. Mass lesion or infectious etiology felt unlikely, but suggest continued follow-up to assure resolution. Fat- and small bowel-containing left inguinal hernia and fat-containing right inguinal hernia. Subjective Patient reports: no new complaints, feels better, still having pain, pain is less, tolerating liquids well, voiding w/o difficulty, flatus, bowel movement, afebrile Objective Vital Signs - Last 8 Hours Temp Pulse Resp BP Pulse Ox 04/13/17 07:03 97.6 F 77 16 106/68 95 04/13/17 05:16 98.6 F 86 15 133/56 96 04/13/17 03:44 18 92 04/12/17 23:49 16 90 04/12/17 23:43 97.9 F 93 15 146/69 90 Intake and Output 04/12/17 04/12/17 04/13/17 15:59 23:59 07:59 Intake Total 1050 / 1050 1289 / 1289 200 / 200 Output Total 1450 / 1450 450 / 450 Balance 1050 / 1050 -161 / -161 -250 / -250 Intake: Oral 700 / 700 Tube Feeding 739 / 739 Free Water 200 / 200 Free Water Intake Amount 350 / 350 350 / 350 200 / 200 Output: Gastric Tube Lavage Amount 1450 / 1450 LLQ 1450 / 1450 Wound Drainage 450 / 450 left upper abdomen 2 450 / 450 Other: Meal Lunch Percent of Meal Consumed 0% Stool Size Smear Stool Consistency loose formed Stool Characteristics Foamy Stool Color Brown # Voids 1 # Urine Diapers 1 1 Blood Glucose* 175 130 148 - General physical appearance no distress, no pain - ENT dentures, atraumatic, normocephalic - Neck Neck exam: trachea midline, no venous distension - Respiratory normal respiratory effort, other (rhonchi) - Cardiovascular Cardiovascular exam: Present: RRR, murmurs - Abdomen Abdomen: Present: bowel sounds present, soft, tender, wound (See assessment and plan for drain descriptions) Hernia: none (None palpable. Incidental findings of bilateral inguinal hernia on recent CT of hip. No evidence of compromised blood flow.) - Incision Incision: Present: clean and dry, intact - Integumentary other (Mild erythema surrounding G-tube) - Neurologic normal sensation - Musculoskeletal other (Physical deconditioning noted. PT and OT are following. She follows commands and is sitting upright in bed.) - Psychiatric oriented to time, oriented to person, oriented to place, speech is normal, memory intact - Labs 04/12/17 03:38 04/12/17 03:38 - VTE Documentation of Mechanical Device: Intermittent pneumatic compression device Consult Discharge Plan - Plan Instructions: Inguinal Hernia (GEN), Tube Feeding (GEN) Additional Instructions: G-tube: 1) do not put any medications, liquids, flushes, or any substances in the gastric tube. 2) Alternate gastric tube clamped and to gravity every 4 hours. J-tube: 1) tube feeds per J-tube. 2) Q4 flushes with free water. 3a) Ok to give medications through J-tube if necessary; 3b) otherwise time PO medicaitons for when Gastric tube is clamped. 4) Ensure that all medications have been completely liquefied (no particles are to be seen) prior to administration through the J-tube as this tube is easily clogged. 5) Also flush with 200 and mouth after all medication administration. Drain Site Care TID: Remove split cause. Wash with antibacterial soap. Pat dry. Apply gautos/miconazole extra thick around the drain sites and on the surrounding erythema. Cover with split cause. Tape to secure. Midline Incision wound care: wash daily with antibacterial soap. Leave open to air. Consideration for staple removal will be completed at her follow-up visit. Diet: Clear liquid diet. Do not advance past clear liquids. Tube feeds per rock picker recommendations per J-tube. GI: Continue miralax and dulcolax suppositories BID until having daily BMs. Then may decrease to PRN. Continue aggressive pulmonary toileting after d/c Referrals: Kayden Castillo MD [Partnered Physician] - 05/18/17 8:55 am Memo Cody MD [Primary Care Provider] - Adeline Bingham CNP [Advanced Practice Nurse] - 04/30/17 8:40 am Prescriptions: Bisacodyl [Dulcolax] 10 mg RC DAILY #30 supp.rect Miconazole w/zinc oxide&karaya [Antifungal Extra Thick] 92 appl TP TID 30 Days # 2 tube Polyethylene Glycol 3350 [MiraLAX] 17 gm PO BID #60 powd.pack <Kayden Castillo - Last Filed: 04/13/17 08:55> Date of Encounter: 04/13/17 Objective Vital Signs - Last 8 Hours Temp Pulse Resp BP Pulse Ox 04/13/17 07:57 16 96 04/13/17 07:03 97.6 F 77 16 106/68 95 04/13/17 05:16 98.6 F 86 15 133/56 96 04/13/17 03:44 18 92 Intake and Output 04/12/17 04/13/17 04/13/17 23:59 07:59 15:59 Intake Total 1289 / 1289 200 / 200 Output Total 1450 / 1450 450 / 450 Balance -161 / -161 -250 / -250 Intake: Tube Feeding 739 / 739 Free Water 200 / 200 Free Water Intake Amount 350 / 350 200 / 200 Output: Gastric Tube Lavage Amount 1450 / 1450 LLQ 1450 / 1450 Wound Drainage 450 / 450 left upper abdomen 2 450 / 450 Other: Stool Size Smear Stool Consistency loose formed Stool Characteristics Foamy Stool Color Brown # Voids 1 # Urine Diapers 1 1 Blood Glucose* 130 148 125 - Labs 04/13/17 06:47 04/12/17 03:38 - Attending Attestation I examined this patient and my medical decision-making was reviewed with the Resident Physician. I agree with the documented findings, disposition and treatment plan as described except to the extent set forth below. The patient feels well today and we will continue with intermittent gastrostomy clamping and jejunostomy tube feedings. I think she is reasonable for rehabilitation discharge. I will follow her as an outpatient Kayden Castillo MD FACS
[2017-04-13] MEDS: Budesonide/Formoterol 160/4.5 MDI IH SCH ×2 (07:53→19:41)
[2017-04-13] MEDS ORDERED: *HR* LORazepam 2 MG/ML VIAL IVP ONE (08:53)
[2017-04-13] MEDS ORDERED: Furosemide 40 MG/4 ML VIAL IVP ONE (09:01)
[2017-04-13 09:28] LABS: Alanine Aminotransferase 35 Units/L (7-52); Albumin 2.4 g/dL (3.5-5.7); Albumin/Globulin Ratio 0.7 (1.1-2.2); Alkaline Phosphatase 91 Units/L (34-104); Aspartate Amino Transferase 40 Units/L (13-39); BUN/Creatinine Ratio 45 (6-26); Bilirubin,Total 0.4 mg/dL (0.3-1.0); Blood Urea Nitrogen 26 mg/dL (8-23); Calcium 8.1 mg/dL (8.6-10.3); Carbon Dioxide 30 mEq/L (23-29); Chloride 105 mEq/L (98-107); Globulin 3.3 g/dL (2.4-3.5); Glucose 189 mg/dL (70-105); Osmolality,Calculated 304 (280-300); Potassium 3.6 mEq/L (3.5-5.1); Sodium 142 mEq/L (136-145); Total Protein 5.7 g/dL (6.4-8.9); eGFR For African Americans > 60 (> 60); eGFR For Non-African Americans > 60 (> 60)
[2017-04-13] MEDS: Furosemide Oral Soln 40 MG/4 ML UDC PO SCH ×2 (10:00→16:43)
[2017-04-13] MEDS: Miconazole w/zinc oxide&karaya 92 APPL/92 GM TUBE TP SCH ×3 (10:02→21:55)
[2017-04-13] MEDS: Bisacodyl 10 MG RECTAL SUPPOSITORY RC SCH (10:05)
--- NOTE | 2017-04-13 10:10 | Internal Med Progress Note ---
<Hood Valle - Last Filed: 04/13/17 10:30> Date of Encounter: 04/13/17 Time of Encounter: 08:30 - Assessment and plan (1) Acute respiratory failure with hypoxia Current Visit: Yes Status: Acute Assessment and plan: - Acute respiratory failure with hypoxia secondary pulmonary edema after aspiration of gastrograffin as below. -Repeat CTA showing mild right and large left pleural effusion, both improved from previous. - Pt currently tolerating 2L with O2 sats in high 90s this AM. - No reported home O2 requirement. - Dyspnea improved with diuresis previously - Pulmonology following, appreciate recommendations - Patient is -13.3 L since admission Plan - She was transitioned to oral solution lasix 20 mg PO, will likely need to increase. We will give an additional 40 mg IV today - Also suspect some anxiety component of SOB, improved with Ativan 0.5mg. -She reports stable breathing however rhonchi on auscultation. - Will obtain repeat CXR this morning to monitor for increased rhonchi on auscultation. - Re consult respiratory therapy for acapella. - Encouraged incentive inspirometry and sitting up. 04/13/17 - Patient continues to complain of shortness of breath which may be due to a anxiety component however she also has diffuse rhonchi on auscultation this morning. We will continue to diuresis and get a repeat chest x-ray. Surgical standpoint she is ready for discharge to rehabilitation however we feel that her respiratory status is not at goal. 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 - G-tube clamped intermittently. Management per surgery. See note on 04/13/17 for discharge instructions. -Bowel sounds present. Reports flatus, 1 BM yesterday. Diet advancement per surgery. Tolerating CLD in addition to gastric feedings. - Pathology results: folcally ulcerated mucosa, acute on chronic inflammation, transmural necrosis with clear margins. Plan - Further management per surgery - Feeds per gastric tube, reglan, Zofran, pain control - Patient tolerating CLD and gastric tube feedings. - She is OK to discharge to rehab per surgery team. Pending placement and improvement of respiratory status - SW has placement, however we will confirm that placement will be able to perform surgical discharge needs. 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 - Patient is hemodynamically stable and appears to be improving - Tolerating intermittent O2 via NC and room air at this time - Completed an 8 day course of Zosyn during stay for possible aspiration - CTA shows improvement of pleural effusions and increased airspace - No plan for bronchoscopy as patient is clinically improving and CTA was improved from previous Plan: We will continue to monitor at this time Duonebs Repeat CXR today, lasix as above. (4) Aspiration into respiratory tract Current Visit: Yes Status: Acute Assessment and plan: - As above. - Tolerating her CLD without complaint. - Has completed course of Zosyn previously in stay. - Diet advancement per surgery Qualifiers: Encounter type: subsequent encounter Qualified Code(s): T17.908D - Unspecified foreign body in respiratory tract, part unspecified causing other injury, subsequent encounter (5) Tachycardia Current Visit: Yes Status: Acute Assessment and plan: - Noted atrial tachycardia with rates in 120s. -Heart rate has been moderately controlled since transfer from ICU in 90s, low 100s - Per cardiology, start ASA when safe from a surgical perspective. Plan - Continue to monitor - Continue metoprolol 5mg q6hr - Continue home BB when able to tolerate PO intake. (6) Hypertension Current Visit: Yes Status: Acute Assessment and plan: - Improved today. most recently 106/68 Continue current meds. Qualifiers: Hypertension type: essential hypertension Qualified Code(s): I10 - Essential (primary) hypertension (7) DVT (deep venous thrombosis) Current Visit: Yes Status: Acute Assessment and plan: - DVT as demonstrated on ultrasound in right upper extremity, brachial - PICC line in place, noted flow around clot - Discussed with PICC team, recommended keep PICC line in place as there is flow around and left UE has superficial venous thrombosis and high chance of DVT - Discussed anticoagulation and we will continue lovenox 80 mg BID - No symptoms, swelling measured at 32 cm, +3 cm from baseline done at PICC line placement. Plan Continue Lovenox - Will begin transition to coumadin tonight with follow up at rehab and coumadin clinic. Qualifiers: DVT location: upper extremity Affected thrombotic vein of extremity: brachial Chronicity: acute Laterality: right Qualified Code(s): I82.621 - Acute embolism and thrombosis of deep veins of right upper extremity (8) Abdominal pain Current Visit: Yes Status: Acute Assessment and plan: - New complaint of abdominal pain located in LLQ as well as left hip and thigh pain following clamping of G-tube. - Patient has been receiving Toradol scheduled for pain, liquid oxycodone with good relief. - Xray of hip revealed no acute process, degenerative changes. - UA ordered by surgery and pending - CT hip and thigh show possible contusion of left thigh and small fat and bowel containing left inguinal hernia. Surgery following. Plan - Will continue pain control. - Conservative management at this time, no evidence of strangulation - Patient has no complaints of pain this AM> Qualifiers: Abdominal location: unspecified location Qualified Code(s): R10.9 - Unspecified abdominal pain (9) DVT prophylaxis Current Visit: Yes Status: Acute Assessment and plan: - Lovenox for DVT as above - Time Spent With Patient 25 - 35 minutes - Subjective Interval history: Patient was seen and examined at bedside this AM. She states that overall she is doing well today, however does complain of some mild shortness of breath. States she has one bowel movement yesterday and is passing gas. We discussed long-term anticoagulation at this time and she has no preference on agent. - Constitutional Vitals: Temp Pulse Resp BP Pulse Ox 97.6 F 77 16 106/68 96 04/13/17 07:03 04/13/17 07:03 04/13/17 07:57 04/13/17 07:03 04/13/17 07:57 General appearance: Present: A&O X 3, answers questions appropriately Exam: Gen.: Vitals noted. No acute distress. AAOx3 HEENT: PERRL/EOMI, oropharynx clear, Normocephalic, atraumatic Cardiac: RRR, no murmur, +S1/S2 Pulmonary: Diffuse rhonchi, decreased from previous. equal chest expansion Abdomen: soft, nontender, BS noted, no guarding MSK: ROM intact, no joint swelling noted Extremities: no BLE edema, nontender calf, no cyanosis or clubbing Neuro: A&Ox3, moves all extremities, no focal deficits Psych: Appropriate mood and behavior Internal Medicine: Result - Labs CBC & Chem 7: 04/13/17 06:47 04/13/17 06:47 Labs: Short CBC 04/13/17 Range/Units 06:47 WBC 5.7 (4.3-11.1) K/mcL Hgb 8.6 L (11.5-15.4) g/dL Hct 27.2 L (35.3-44.9) % Plt Count 260 (140-400) K/mcL Neutrophils # 4.1 (1.6-8.9) K/mcL BMP 04/13/17 06:47 Sodium 142 Potassium 3.6 Chloride 105 Carbon Dioxide 30 H BUN 26 H Creatinine 0.58 L Glucose 189 H Calcium 8.1 L Liver Function 04/13/17 Range/Units 06:47 Total Bilirubin 0.4 (0.3-1.0) mg/dL AST 40 H (13-39) Units/L ALT 35 (7-52) Units/L Alkaline Phosphatase 91 (34-104) Units/L Albumin 2.4 L (3.5-5.7) g/dL - ABG Interpretation ABG results: ABG ABG pH 7.47 pH Units (7.32-7.45) H 04/05/17 10:35 ABG pCO2 40 mmHg (35-45) 04/05/17 10:35 ABG pO2 82 mmHg (85-104) L 04/05/17 10:35 ABG O2 Saturation 97 % (95-98) 04/05/17 10:35 PT/INR, D-dimer PT 11.5 Seconds (9.4-12.1) 04/01/17 19:25 - VTE Documentation of Mechanical Device: Intermittent pneumatic compression device Consult Discharge Plan - Plan Instructions: Inguinal Hernia (GEN), Tube Feeding (GEN) Additional Instructions: G-tube: 1) do not put any medications, liquids, flushes, or any substances in the gastric tube. 2) Alternate gastric tube clamped and to gravity every 4 hours. J-tube: 1) tube feeds per J-tube. 2) Q4 flushes with free water. 3a) Ok to give medications through J-tube if necessary; 3b) otherwise time PO medicaitons for when Gastric tube is clamped. 4) Ensure that all medications have been completely liquefied (no particles are to be seen) prior to administration through the J-tube as this tube is easily clogged. 5) Also flush with 200 and mouth after all medication administration. Drain Site Care TID: Remove split cause. Wash with antibacterial soap. Pat dry. Apply gautos/miconazole extra thick around the drain sites and on the surrounding erythema. Cover with split cause. Tape to secure. Midline Incision wound care: wash daily with antibacterial soap. Leave open to air. Consideration for staple removal will be completed at her follow-up visit. Diet: Clear liquid diet. Do not advance past clear liquids. Tube feeds per vp client services recommendations per J-tube. GI: Continue miralax and dulcolax suppositories BID until having daily BMs. Then may decrease to PRN. Continue aggressive pulmonary toileting after d/c Referrals: Kayden Castillo MD [Partnered Physician] - 05/18/17 8:55 am Memo Cody MD [Primary Care Provider] - Adeline Bingham CNP [Advanced Practice Nurse] - 04/30/17 8:40 am Prescriptions: Bisacodyl [Dulcolax] 10 mg RC DAILY #30 supp.rect Miconazole w/zinc oxide&karaya [Antifungal Extra Thick] 92 appl TP TID 30 Days # 2 tube Polyethylene Glycol 3350 [MiraLAX] 17 gm PO BID #60 powd.pack <Castillo Al - Last Filed: 04/13/17 17:37> Date of Encounter: 04/13/17 - Assessment and plan (1) Acute respiratory failure with hypoxia Current Visit: Yes Status: Acute (2) 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 Current Visit: Yes Status: Acute (3) DVT (deep venous thrombosis) Current Visit: Yes Status: Acute Qualifiers: DVT location: upper extremity Affected thrombotic vein of extremity: brachial Chronicity: acute Laterality: right Qualified Code(s): I82.621 - Acute embolism and thrombosis of deep veins of right upper extremity (4) Hiatal hernia Current Visit: Yes Status: Acute (5) Aspiration into respiratory tract Current Visit: Yes Status: Acute Qualifiers: Encounter type: subsequent encounter Qualified Code(s): T17.908D - Unspecified foreign body in respiratory tract, part unspecified causing other injury, subsequent encounter (6) Hypertension Current Visit: Yes Status: Acute Qualifiers: Hypertension type: essential hypertension Qualified Code(s): I10 - Essential (primary) hypertension (7) Severe protein-calorie malnutrition Current Visit: Yes Status: Chronic - Constitutional Vitals: Temp Pulse Resp BP Pulse Ox 97.9 F 87 16 135/84 99 04/13/17 16:23 04/13/17 16:23 04/13/17 16:23 04/13/17 16:23 04/13/17 16:23 Internal Medicine: Result - Labs CBC & Chem 7: 04/13/17 06:47 04/13/17 06:47 Labs: Short CBC 04/13/17 Range/Units 06:47 WBC 5.7 (4.3-11.1) K/mcL Hgb 8.6 L (11.5-15.4) g/dL Hct 27.2 L (35.3-44.9) % Plt Count 260 (140-400) K/mcL Neutrophils # 4.1 (1.6-8.9) K/mcL BMP 04/13/17 06:47 Sodium 142 Potassium 3.6 Chloride 105 Carbon Dioxide 30 H BUN 26 H Creatinine 0.58 L Glucose 189 H Calcium 8.1 L Liver Function 04/13/17 Range/Units 06:47 Total Bilirubin 0.4 (0.3-1.0) mg/dL AST 40 H (13-39) Units/L ALT 35 (7-52) Units/L Alkaline Phosphatase 91 (34-104) Units/L Albumin 2.4 L (3.5-5.7) g/dL - ABG Interpretation ABG results: ABG ABG pH 7.47 pH Units (7.32-7.45) H 04/05/17 10:35 ABG pCO2 40 mmHg (35-45) 04/05/17 10:35 ABG pO2 82 mmHg (85-104) L 04/05/17 10:35 ABG O2 Saturation 97 % (95-98) 04/05/17 10:35 PT/INR, D-dimer PT 11.6 Seconds (9.4-12.1) 04/13/17 10:30 - Impressions Impressions Chest X-Ray 04/13/17 09:01 IMPRESSION: 1. New mild pulmonary edema. 2. New small left pleural effusion. D/ / Hood Forrester MD / Hood Forrester MD Interpreting Provider: Hood Forrester MD - Attending Attestation I examined this patient and my medical decision-making was reviewed with the Resident Physician on 04/13/17. I agree with the documented findings, disposition and treatment plan as described except to the extent set forth below. Ms Leach is currently admitted for incarcerated paraesophageal hernia. She remains moderate to high risk due to potential for worsening clinical status. Ms Leach is more dyspneic again. She has a lot of chest congestion. No fever. No chest pain. Tolerating current treatment. Exam Mucus membranes dry Heart reg and not tachy Lungs with rhonchi Abd soft I/P 1. Hernia 2. Dyspnea Recommend evaluation for potential LTACH admission
[2017-04-13 10:46] LABS: INR 1.1; Prothrombin Time 11.6 Seconds (9.4-12.1)
[2017-04-13] MEDS ORDERED: *HR* OxyCODONE Oral Soln 5 MG/5 ML UD.LIQ GTUBE PRN (13:44)
[2017-04-13] MEDS ORDERED: OXYCODONE Oral CONC 10 MG/0.5 ML ORAL.SYG SL PRN (15:12)
[2017-04-13] MEDS ORDERED: HYDROcodone/Acet 5-217 mg/10mL 10 ML UDC PO PRN (15:36)
[2017-04-13] MEDS ORDERED: *HR* Warfarin 5 MG TABLET PO ONE (18:00)
[2017-04-13] MEDS ORDERED: Warfarin perPT PO PRN (18:00)
[2017-04-13] MEDS ORDERED: *HR* Alteplase (Cathflo) 2 MG VIAL IVP ONE (22:17)
[2017-04-14] MEDS: Insulin LISPRO 300 UNITS/3 ML VIAL SQ SCH ×5 (00:01→18:00)
[2017-04-14] MEDS: Metoclopramide 10 MG/2 ML VIAL IVP SCH ×4 (03:34→20:05)
[2017-04-14] MEDS: *HR* Metoprolol 5 MG/5 ML VIAL IVP SCH ×4 (03:34→20:05)
[2017-04-14] MEDS: Ipratropium/Albuterol Neb 3 ML IH SCH ×6 (03:41→23:51)
[2017-04-14 05:29] LABS: INR 1.1; Prothrombin Time 11.5 Seconds (9.4-12.1)
[2017-04-14 05:33] LABS: Hematocrit 28.3 % (35.3-44.9); Hemoglobin 8.5 g/dL (11.5-15.4); Mean Corpuscular Hemoglobin 26.7 pg (28.0-33.3); Mean Platelet Volume 11.3 fL (9.4-12.4); Platelet Count 306 K/mcL (140-400); Red Blood Count 3.18 M/mcL (3.82-4.97); Red Cell Distribution Width 15.4 % (11.5-14.5)
[2017-04-14 05:53] LABS: BUN/Creatinine Ratio 47 (6-26); Blood Urea Nitrogen 24 mg/dL (8-23); Calcium 8.1 mg/dL (8.6-10.3); Carbon Dioxide 32 mEq/L (23-29); Chloride 102 mEq/L (98-107); Glucose 129 mg/dL (70-105); Osmolality,Calculated 296 (280-300); Potassium 3.4 mEq/L (3.5-5.1); Sodium 140 mEq/L (136-145); eGFR For African Americans > 60 (> 60); eGFR For Non-African Americans > 60 (> 60)
[2017-04-14] MEDS: *HR* Enoxaparin 60 MG/0.6 ML SYRINGE SQ SCH ×2 (05:59→18:07)
[2017-04-14] MEDS ORDERED: *HR* Metoprolol 5 MG/5 ML VIAL IVP SCH (06:00)
[2017-04-14] MEDS ORDERED: Metoclopramide 10 MG/2 ML VIAL IVP SCH (06:00)
[2017-04-14] MEDS: Furosemide Oral Soln 40 MG/4 ML UDC PO SCH (07:36)
[2017-04-14] MEDS: Budesonide/Formoterol 160/4.5 MDI IH SCH ×2 (07:44→19:30)
[2017-04-14] MEDS ORDERED: *HR* Metoprolol 5 MG/5 ML VIAL IVP PRN (09:00)
--- NOTE | 2017-04-14 10:26 | Internal Med Progress Note ---
<Hood Valle - Last Filed: 04/14/17 15:06> Date of Encounter: 04/14/17 Time of Encounter: 10:24 - Assessment and plan (1) Acute respiratory failure with hypoxia Current Visit: Yes Status: Acute Assessment and plan: - Acute respiratory failure with hypoxia secondary pulmonary edema after aspiration of gastrograffin as below. - CXR on 04/13/17 showed stable mild pleural effusions with mild pulmonary edema. - Pt currently tolerating 2L with O2 sats in high 90s this AM. - No reported home O2 requirement. - Patient is -13.3 L since admission Plan - She was transitioned to oral solution lasix 20 mg PO. - Also suspect some anxiety component of SOB, improved with Ativan 0.5mg. - She reports stable breathing however rhonchi on auscultation. - Encouraged incentive inspirometry, acapella, and sitting up. - Overall clinically improved and goal of transferring to LTACH for recovery. 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 - G-tube clamped intermittently. Management per surgery. See note on 04/13/17 for discharge instructions. -Bowel sounds present. Reports flatus, 1 BM yesterday. Diet advancement per surgery. Tolerating CLD in addition to gastric feedings. - Pathology results: folcally ulcerated mucosa, acute on chronic inflammation, transmural necrosis with clear margins. Plan - Further management per surgery - Feeds per gastric tube, reglan, Zofran, pain control - Patient tolerating CLD and gastric tube feedings. - She is OK to discharge to rehab per surgery team. Pending placement and improvement of respiratory status - SW has placement, however we will confirm that placement will be able to perform surgical discharge needs. 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 - Patient is hemodynamically stable and appears to be improving - Tolerating intermittent O2 via NC and room air at this time - Completed an 8 day course of Zosyn during stay for possible aspiration - CTA shows improvement of pleural effusions and increased airspace - No plan for bronchoscopy as patient is clinically improving and CTA was improved from previous Plan: We will continue to monitor at this time Duonebs Will likely need O2 on discharge. (4) Aspiration into respiratory tract Current Visit: Yes Status: Acute Assessment and plan: - As above. - Tolerating her CLD without complaint. - Has completed course of Zosyn previously in stay. - Diet advancement per surgery Qualifiers: Encounter type: subsequent encounter Qualified Code(s): T17.908D - Unspecified foreign body in respiratory tract, part unspecified causing other injury, subsequent encounter (5) Tachycardia Current Visit: Yes Status: Acute Assessment and plan: - Noted atrial tachycardia with rates in 120s. -Heart rate has been moderately controlled since transfer from ICU in 80/90s - Per cardiology, start ASA when safe from a surgical perspective. Plan - Continue to monitor - Continue metoprolol 5mg q6hr PRN - Continue home BB (6) Hypertension Current Visit: Yes Status: Acute Assessment and plan: - Improved today. most recently 122/83 Continue current meds. Qualifiers: Hypertension type: essential hypertension Qualified Code(s): I10 - Essential (primary) hypertension (7) DVT (deep venous thrombosis) Current Visit: Yes Status: Acute Assessment and plan: - DVT as demonstrated on ultrasound in right upper extremity, brachial - PICC line in place, noted flow around clot - Discussed with PICC team, recommended keep PICC line in place as there is flow around and left UE has superficial venous thrombosis and high chance of DVT - Discussed anticoagulation and we will continue lovenox 80 mg BID - No symptoms, swelling measured at 32 cm, +3 cm from baseline done at PICC line placement. Plan Continue Lovenox - Will transition to coumadin with follow up at rehab and coumadin clinic. - INR 1.1 Qualifiers: DVT location: upper extremity Affected thrombotic vein of extremity: brachial Chronicity: acute Laterality: right Qualified Code(s): I82.621 - Acute embolism and thrombosis of deep veins of right upper extremity (8) Abdominal pain Current Visit: Yes Status: Resolved Assessment and plan: - New complaint of abdominal pain located in LLQ as well as left hip and thigh pain following clamping of G-tube. - Patient has been receiving Toradol scheduled for pain, liquid oxycodone with good relief. - Xray of hip revealed no acute process, degenerative changes. - UA ordered by surgery and pending - CT hip and thigh show possible contusion of left thigh and small fat and bowel containing left inguinal hernia. Surgery following. Plan - Will continue pain control. - Conservative management at this time, no evidence of strangulation - Patient has no complaints of pain this AM Qualifiers: Abdominal location: unspecified location Qualified Code(s): R10.9 - Unspecified abdominal pain (9) DVT prophylaxis Current Visit: Yes Status: Acute Assessment and plan: - Lovenox, coumadin for DVT as above - Time Spent With Patient 25 - 35 minutes - Subjective Interval history: Patient was seen and examined at bedside this AM. She states that overall she is doing well today, however does complain of not being able to get enough air. She denies any complaints of pain. He does state he is feeling very fatigued and gets tired easily. - Constitutional Vitals: Temp Pulse Resp BP Pulse Ox 97.8 F 84 16 122/83 91 04/14/17 06:36 04/14/17 06:36 04/14/17 07:47 04/14/17 06:36 04/14/17 07:47 General appearance: Present: A&O X 3, answers questions appropriately Exam: Gen.: Vitals noted. No acute distress. AAOx3 HEENT: PERRL/EOMI, oropharynx clear, Normocephalic, atraumatic Cardiac: RRR, no murmur, +S1/S2 Pulmonary: Mild rales, improved from yesterday, equal chest expansion Abdomen: soft, nontender, BS noted, no guarding Extremities: no BLE edema, nontender calf, no cyanosis or clubbing Neuro: A&Ox3, moves all extremities, no focal deficits Psych: Appropriate mood and behavior Internal Medicine: Result - Labs CBC & Chem 7: 04/14/17 04:02 04/14/17 04:02 Labs: Short CBC 04/14/17 Range/Units 04:02 WBC 5.4 (4.3-11.1) K/mcL Hgb 8.5 L (11.5-15.4) g/dL Hct 28.3 L (35.3-44.9) % Plt Count 306 (140-400) K/mcL BMP 04/14/17 04:02 Sodium 140 Potassium 3.4 L Chloride 102 Carbon Dioxide 32 H BUN 24 H Creatinine 0.51 L Glucose 129 H Calcium 8.1 L - ABG Interpretation ABG results: ABG ABG pH 7.47 pH Units (7.32-7.45) H 04/05/17 10:35 ABG pCO2 40 mmHg (35-45) 04/05/17 10:35 ABG pO2 82 mmHg (85-104) L 04/05/17 10:35 ABG O2 Saturation 97 % (95-98) 04/05/17 10:35 PT/INR, D-dimer PT 11.5 Seconds (9.4-12.1) 04/14/17 04:02 - Impressions Impressions Chest X-Ray 04/13/17 09:01 IMPRESSION: 1. New mild pulmonary edema. 2. New small left pleural effusion. D/ / Hood Forrester MD / Hood Forrester MD Interpreting Provider: Hood Forrester MD - VTE Documentation of Mechanical Device: Intermittent pneumatic compression device Consult Discharge Plan - Plan Instructions: Inguinal Hernia (GEN), Tube Feeding (GEN) Additional Instructions: G-tube: 1) do not put any medications, liquids, flushes, or any substances in the gastric tube. 2) Alternate gastric tube clamped and to gravity every 4 hours. J-tube: 1) tube feeds per J-tube. 2) Q4 flushes with free water. 3a) Ok to give medications through J-tube if necessary; 3b) otherwise time PO medicaitons for when Gastric tube is clamped. 4) Ensure that all medications have been completely liquefied (no particles are to be seen) prior to administration through the J-tube as this tube is easily clogged. 5) Also flush with 200 and mouth after all medication administration. Drain Site Care TID: Remove split cause. Wash with antibacterial soap. Pat dry. Apply gautos/miconazole extra thick around the drain sites and on the surrounding erythema. Cover with split cause. Tape to secure. Midline Incision wound care: wash daily with antibacterial soap. Leave open to air. Consideration for staple removal will be completed at her follow-up visit. Diet: Clear liquid diet. Do not advance past clear liquids. Tube feeds per ui developer recommendations per J-tube. GI: Continue miralax and dulcolax suppositories BID until having daily BMs. Then may decrease to PRN. Continue aggressive pulmonary toileting after d/c Referrals: Kayden Castillo MD [Partnered Physician] - 05/18/17 8:55 am Memo Cody MD [Primary Care Provider] - Adeline Bingham CNP [Advanced Practice Nurse] - 04/30/17 8:40 am Prescriptions: Bisacodyl [Dulcolax] 10 mg RC DAILY #30 supp.rect Miconazole w/zinc oxide&karaya [Antifungal Extra Thick] 92 appl TP TID 30 Days # 2 tube Polyethylene Glycol 3350 [MiraLAX] 17 gm PO BID #60 powd.pack <Castillo Al - Last Filed: 04/14/17 16:41> Date of Encounter: 04/14/17 - Assessment and plan (1) Acute respiratory failure with hypoxia Current Visit: Yes Status: Acute (2) 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 PICC to be removed today. Qualifiers: DVT location: upper extremity Affected thrombotic vein of extremity: brachial Chronicity: acute Laterality: right Qualified Code(s): I82.621 - Acute embolism and thrombosis of deep veins of right upper extremity (4) Aspiration into respiratory tract Current Visit: Yes Status: Acute Qualifiers: Encounter type: subsequent encounter Qualified Code(s): T17.908D - Unspecified foreign body in respiratory tract, part unspecified causing other injury, subsequent encounter (5) Hypertension Current Visit: Yes Status: Acute Qualifiers: Hypertension type: essential hypertension Qualified Code(s): I10 - Essential (primary) hypertension (6) Severe protein-calorie malnutrition Current Visit: Yes Status: Chronic - Constitutional Vitals: Temp Pulse Resp BP Pulse Ox 98.1 F 93 16 115/70 95 04/14/17 15:09 02/07/18 15:09 04/14/17 16:21 04/14/17 15:09 04/14/17 16:21 Internal Medicine: Result - Labs CBC & Chem 7: 04/14/17 04:02 04/14/17 04:02 Labs: Short CBC 04/14/17 Range/Units 04:02 WBC 5.4 (4.3-11.1) K/mcL Hgb 8.5 L (11.5-15.4) g/dL Hct 28.3 L (35.3-44.9) % Plt Count 306 (140-400) K/mcL BMP 04/14/17 04:02 Sodium 140 Potassium 3.4 L Chloride 102 Carbon Dioxide 32 H BUN 24 H Creatinine 0.51 L Glucose 129 H Calcium 8.1 L - ABG Interpretation ABG results: ABG ABG pH 7.47 pH Units (7.32-7.45) H 04/05/17 10:35 ABG pCO2 40 mmHg (35-45) 04/05/17 10:35 ABG pO2 82 mmHg (85-104) L 04/05/17 10:35 ABG O2 Saturation 97 % (95-98) 04/05/17 10:35 PT/INR, D-dimer PT 11.5 Seconds (9.4-12.1) 04/14/17 04:02 - Attending Attestation I examined this patient and my medical decision-making was reviewed with the Resident Physician on 04/14/17. I agree with the documented findings, disposition and treatment plan as described except to the extent set forth below. Ms Leach is currently admitted for paraesophageal hernia and gastric volvulus. She remains moderate to high risk due to potential for worsening clinical status. Ms Leach is up in the chair. She feels she is breathing better today. No fever. Still has congestion in her chest but seems to be doing a little better. Working on d/c plans - ? to LTACH. Exam alert. Comfortable Mucus membranes dry Heart distant and regular - not tachy at this time. Lungs with scattered rhonchi. No wheeze Abd soft I/P 1. Hypoxia 2. Paraesophageal hernia s/p repair Further diagnoses and plan as above.
[2017-04-14] MEDS: Miconazole w/zinc oxide&karaya 92 APPL/92 GM TUBE TP SCH ×3 (13:03→20:05)
--- NOTE | 2017-04-14 15:44 | General Surgery Progress Note ---
Date of Encounter: 04/14/17 Time of Encounter: 09:00 Subjective Patient reports: no new complaints, still having pain, pain is less, tolerating liquids well (clear liquids only), flatus, bowel movement, diarrhea, afebrile Objective Vital Signs - Last 8 Hours Temp Pulse Resp BP Pulse Ox 04/14/17 15:09 98.1 F 93 16 115/70 95 04/14/17 11:28 97.5 F L 90 16 135/62 97 04/14/17 07:47 16 91 Intake and Output 04/13/17 04/14/17 04/14/17 23:59 07:59 15:59 Intake Total 570 / 570 500 / 500 885 / 885 Output Total 700 / 700 1 / 1325 / 1325 Balance -130 / -130 499 / 499 -440 / -440 Intake: Oral 0 / 0 0 / 0 240 / 240 Tube Feeding 420 / 420 495 / 495 Free Water 150 / 150 Free Water Intake Amount 150 / 150 500 / 500 Output: Urine 0 / 0 0 / 0 Stool 1 / 1 Gastric Drainage 725 / 725 Wound Drainage 700 / 700 600 / 600 left upper abdomen 2 700 / 700 600 / 600 Other: Stool Size Moderate Stool Consistency loose soft Weight 65.1 kg Blood Glucose* 101 166 142 Patient Weight 04/14/17 23:59 Weight 65.1 kg - General physical appearance well developed, no distress, chronically ill - Eyes PERRL, normal ocular movement - ENT dry mucosa, atraumatic, normocephalic - Neck Neck exam: trachea midline - Respiratory other (diminished bibasilar bases) rales: bilateral - Cardiovascular Cardiovascular exam: Present: RRR - Abdomen Abdomen: Present: bowel sounds present, soft, tender (Expected postoperative tenderness), wound (gastric tube to gravity drain with bilious drainage noted; J -tube with tube feeds at 55ml/hour (tube sites with mild erythema noted- improved with gautos cream application)) - Incision Incision: Present: clean and dry, intact - Neurologic CN 2-12 grossly intact - Musculoskeletal other (severe deconditioning) - Psychiatric oriented to person, oriented to place, speech is normal - Labs 04/14/17 04:02 04/14/17 04:02 Diabetes panel 04/14/17 Range/Units 04:02 Sodium 140 (136-145) mEq/L Potassium 3.4 L (3.5-5.1) mEq/L Chloride 102 (98-107) mEq/L Carbon Dioxide 32 H (23-29) mEq/L BUN 24 H (8-23) mg/dL Creatinine 0.51 L (0.60-1.20) mg/dL Glucose 129 H (70-105) mg/dL Calcium 8.1 L (8.6-10.3) mg/dL Calcium panel 04/14/17 Range/Units 04:02 Calcium 8.1 L (8.6-10.3) mg/dL Pituitary panel 04/14/17 Range/Units 04:02 Sodium 140 (136-145) mEq/L Potassium 3.4 L (3.5-5.1) mEq/L Chloride 102 (98-107) mEq/L Carbon Dioxide 32 H (23-29) mEq/L BUN 24 H (8-23) mg/dL Creatinine 0.51 L (0.60-1.20) mg/dL Glucose 129 H (70-105) mg/dL Calcium 8.1 L (8.6-10.3) mg/dL Adrenal panel 04/14/17 Range/Units 04:02 Sodium 140 (136-145) mEq/L Potassium 3.4 L (3.5-5.1) mEq/L Chloride 102 (98-107) mEq/L Carbon Dioxide 32 H (23-29) mEq/L BUN 24 H (8-23) mg/dL Creatinine 0.51 L (0.60-1.20) mg/dL Glucose 129 H (70-105) mg/dL Calcium 8.1 L (8.6-10.3) mg/dL - VTE Documentation of Mechanical Device: Intermittent pneumatic compression device Consult Discharge Plan - Plan Instructions: Inguinal Hernia (GEN), Tube Feeding (GEN) Additional Instructions: G-tube: 1) do not put any medications, liquids, flushes, or any substances in the gastric tube. 2) Alternate gastric tube clamped and to gravity every 4 hours. J-tube: 1) tube feeds per J-tube. 2) Q4 flushes with free water. 3a) Ok to give medications through J-tube if necessary; 3b) otherwise time PO medicaitons for when Gastric tube is clamped. 4) Ensure that all medications have been completely liquefied (no particles are to be seen) prior to administration through the J-tube as this tube is easily clogged. 5) Also flush with 200 and mouth after all medication administration. Drain Site Care TID: Remove split cause. Wash with antibacterial soap. Pat dry. Apply gautos/miconazole extra thick around the drain sites and on the surrounding erythema. Cover with split cause. Tape to secure. Midline Incision wound care: wash daily with antibacterial soap. Leave open to air. Consideration for staple removal will be completed at her follow-up visit. Diet: Clear liquid diet. Do not advance past clear liquids. Tube feeds per button sewer recommendations per J-tube. GI: Continue miralax and dulcolax suppositories BID until having daily BMs. Then may decrease to PRN. Continue aggressive pulmonary toileting after d/c Referrals: Kayden Castillo MD [Partnered Physician] - 05/18/17 8:55 am Memo Cody MD [Primary Care Provider] - Adeline Bingham CNP [Advanced Practice Nurse] - 04/30/17 8:40 am Prescriptions: Bisacodyl [Dulcolax] 10 mg RC DAILY #30 supp.rect Miconazole w/zinc oxide&karaya [Antifungal Extra Thick] 92 appl TP TID 30 Days # 2 tube Polyethylene Glycol 3350 [MiraLAX] 17 gm PO BID #60 powd.pack
[2017-04-14] MEDS ORDERED: *HR* Warfarin 3 MG TABLET PO ONE (18:00)
[2017-04-15] MEDS: Insulin LISPRO 300 UNITS/3 ML VIAL SQ SCH ×7 (00:22→20:25)
[2017-04-15] MEDS: Ipratropium/Albuterol Neb 3 ML IH SCH ×5 (03:11→20:08)
[2017-04-15] MEDS: *HR* Metoprolol 5 MG/5 ML VIAL IVP SCH ×4 (03:47→20:25)
[2017-04-15] MEDS: Metoclopramide 10 MG/2 ML VIAL IVP SCH ×4 (03:47→20:24)
[2017-04-15 05:53] LABS: INR 1.1; Prothrombin Time 11.9 Seconds (9.4-12.1)
[2017-04-15] MEDS: *HR* Enoxaparin 60 MG/0.6 ML SYRINGE SQ SCH ×2 (05:53→17:06)
[2017-04-15 06:04] LABS: BUN/Creatinine Ratio 36 (6-26); Blood Urea Nitrogen 22 mg/dL (8-23); Calcium 8.2 mg/dL (8.6-10.3); Carbon Dioxide 35 mEq/L (23-29); Chloride 99 mEq/L (98-107); Glucose 143 mg/dL (70-105); Osmolality,Calculated 294 (280-300); Potassium 3.6 mEq/L (3.5-5.1); Sodium 139 mEq/L (136-145); eGFR For African Americans > 60 (> 60); eGFR For Non-African Americans > 60 (> 60)
[2017-04-15] MEDS: Budesonide/Formoterol 160/4.5 MDI IH SCH ×2 (07:37→23:13)
[2017-04-15] MEDS: Furosemide Oral Soln 40 MG/4 ML UDC PO SCH (07:37)
[2017-04-15] MEDS: Miconazole w/zinc oxide&karaya 92 APPL/92 GM TUBE TP SCH ×3 (07:46→20:25)
--- NOTE | 2017-04-15 10:17 | General Surgery Progress Note ---
<Adeline Bingham - Last Filed: 04/15/17 10:14> Date of Encounter: 04/15/17 Time of Encounter: 08:00 - Assessment and Plan (1) Hiatal hernia Current Visit: Yes Status: Acute 04/15/2017: POD #17 as below. Final pathology noted Stomach, partial gastrectomy ; Focally ulcerated mucosa, acute and chronic inflammation and focal transmural necrosis; Margins viable. Anne Marie again tates her abdominal discomfort is well controlled. She endorses flatus and loose BMs. She denies n/v. Her MARILOU drain was DC'd online 04/12/2017. She is tolerating her CLD. Her abdominal exam is overall benign. Ms Leach is ok from a surgical standpoint to ECF when appropriate from medicine standpoint (d/c planning/management per primary team) Plan: G-tube: 1) do not put any medications, liquids, flushes, or any substances in the gastric tube. 2) Alternate gastric tube clamped and to gravity every 4 hours. J-tube: 1) tube feeds per J-tube. 2) Q4 flushes with free water. 3a) Ok to give medications through J-tube if necessary; 3b) otherwise time PO medicaitons for when Gastric tube is clamped. 4) Ensure that all medications have been completely liquefied (no particles are to be seen) prior to administration through the J-tube as this tube is easily clogged. 5) Also flush with 200 and mouth after all medication administration. Drain Site Care TID: Remove split cause. Wash with antibacterial soap. Pat dry. Apply gautos/miconazole extra thick around the drain sites and on the surrounding erythema. Cover with split cause. Tape to secure. Midline Incision wound care: wash daily with antibacterial soap. Leave open to air. Consideration for staple removal will be completed at her follow-up visit. Diet: Clear liquid diet. Do not advance past clear liquids. Tube feeds per outside sales consultant recommendations per J-tube. GI: Continue miralax and dulcolax suppositories daily PRN. 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 Segmental gastric necrosis. Distal esophageal necrosis) Procedure: #1 reduction of gastric volvulus #2 repair of hiatal hernia #3 debridement and primary repair of distal esophagus #4 resection of gastric necrosis (tangential resection of full-thickness necrotic ulcers times 4) #5 gastrostomy tube #6 jejunostomy tube Anesthesia: SIL Surgeon: Kayden Castillo Estimated blood loss (cc): 200 (2) Jejunostomy tube in situ Current Visit: Yes Status: Acute Small bowel obstruction secondary to jejunostomy tube insertion. This is an expected finding due to the placement of the J-tube. Surrounding surgical site is drain sites with small amount of leaking around the tube and errythema. Surgery is hopeful for the J-tube to remain in place and viable for 4 weeks. G-tube: 1) do not put any medications, liquids, flushes, or any substances in the gastric tube. 2) Alternate gastric tube clamped and to gravity every 4 hours. J-tube: 1) tube feeds per J-tube. 2) Q4 flushes with free water. 3a) Ok to give medications through J-tube if necessary; 3b) otherwise time PO medicaitons for when Gastric tube is clamped. 4) Ensure that all medications have been completely liquefied (no particles are to be seen) prior to administration through the J-tube as this tube is easily clogged. 5) Also flush with 200 and mouth after all medication administration. Drain Site Care TID: Remove split cause. Wash with antibacterial soap. Pat dry. Apply gautos/miconazole extra thick around the drain sites and on the surrounding erythema. Cover with split cause. Tape to secure. (3) Inguinal hernia Current Visit: Yes Status: Acute Incidental finding on CT. Fat- and small bowel-containing left inguinal hernia and fat-containing right inguinal hernia. Noted on CT on 04/09/2017 there is no acute urgent surgical intervention indicated at this time. Patient may follow up with Dr. Castillo as an outpatient regarding above if the need arises. Will review at follow-up visits. Qualifiers: Obstruction and gangrene presence: without obstruction or gangrene Laterality: bilateral Recurrence: not specified as recurrent Qualified Code( s): K40.20 - Bilateral inguinal hernia, without obstruction or gangrene, not specified as recurrent (4) Aspiration into respiratory tract Current Visit: Yes Status: Acute Management per primary medicine. Currently pt is on O2 per nasal cannula. No signs of aspiration on previous modified swallow exam. Qualifiers: Encounter type: subsequent encounter Qualified Code(s): T17.908D - Unspecified foreign body in respiratory tract, part unspecified causing other injury, subsequent encounter (5) DVT (deep venous thrombosis) Current Visit: Yes Status: Acute Per Primary Qualifiers: DVT location: upper extremity Affected thrombotic vein of extremity: brachial Chronicity: acute Laterality: right Qualified Code(s): I82.621 - Acute embolism and thrombosis of deep veins of right upper extremity (6) Abnormal CAT scan Current Visit: Yes Status: Acute CT of hip and LLE noted per primary team. Incidental findings in the report included below. Will review with Dr. Castillo: Heterogeneous enlargement of left iliacus muscle with mild degree of adjacent fat stranding to the left iliopsoas. Findings are felt to be most consistent with strain/contusion of the iliacus with edema, hemorrhage and partial tearing. Mass lesion or infectious etiology felt unlikely, but suggest continued follow-up to assure resolution. Fat- and small bowel-containing left inguinal hernia and fat-containing right inguinal hernia. Subjective Patient reports: no new complaints, feels better, tolerating liquids well, voiding w/o difficulty, flatus, bowel movement, shortness of breath, afebrile Objective Vital Signs - Last 8 Hours Temp Pulse Resp BP Pulse Ox 04/15/17 07:35 20 94 04/15/17 06:29 97.8 F 83 15 156/78 91 04/15/17 03:44 98.8 F 95 18 138/75 92 04/15/17 03:12 18 93 Intake and Output 04/14/17 04/15/17 04/15/17 23:59 07:59 15:59 Intake Total 594 / 594 709 / 709 250 / 250 Output Total 1100 / 1100 250 / 250 Balance -506 / -506 459 / 459 250 / 250 Intake: Oral 250 / 250 Tube Feeding 444 / 444 409 / 409 Free Water 150 / 150 300 / 300 Output: Catheter 50 / 50 Gastric Drainage 1100 / 1100 200 / 200 Other: Meal Breakfast Percent of Meal Consumed 0% Stool Size Smear Stool Consistency loose Stool Color Brown # Voids 1 # Urine Diapers 1 # Bowel Movements 1 # Bowel Movement Diapers 0 Blood Glucose* 161 135 - General physical appearance no distress, no pain, other (Generalized weakness) - ENT dentures, atraumatic, normocephalic - Neck Neck exam: trachea midline, no venous distension - Respiratory other (Course breath sounds. Rhonchi audible without stethoscope) - Cardiovascular Cardiovascular exam: Present: NR (Normal rate. Occasional extra systole noted.) - Abdomen Abdomen: Present: bowel sounds present, soft, tender (Expected postoperative), wound (See assessment and plan for details of gastric and J-tube) - Incision Incision: Present: clean and dry, intact - Integumentary no rash - Neurologic normal coordination, normal sensation - Musculoskeletal normal posture - Psychiatric oriented to time, oriented to person, oriented to place - Labs 04/14/17 04:02 04/15/17 05:26 Diabetes panel 04/15/17 Range/Units 05:26 Sodium 139 (136-145) mEq/L Potassium 3.6 (3.5-5.1) mEq/L Chloride 99 (98-107) mEq/L Carbon Dioxide 35 H (23-29) mEq/L BUN 22 (8-23) mg/dL Creatinine 0.61 (0.60-1.20) mg/dL Glucose 143 H (70-105) mg/dL Calcium 8.2 L (8.6-10.3) mg/dL Calcium panel 04/15/17 Range/Units 05:26 Calcium 8.2 L (8.6-10.3) mg/dL Pituitary panel 04/15/17 Range/Units 05:26 Sodium 139 (136-145) mEq/L Potassium 3.6 (3.5-5.1) mEq/L Chloride 99 (98-107) mEq/L Carbon Dioxide 35 H (23-29) mEq/L BUN 22 (8-23) mg/dL Creatinine 0.61 (0.60-1.20) mg/dL Glucose 143 H (70-105) mg/dL Calcium 8.2 L (8.6-10.3) mg/dL Adrenal panel 04/15/17 Range/Units 05:26 Sodium 139 (136-145) mEq/L Potassium 3.6 (3.5-5.1) mEq/L Chloride 99 (98-107) mEq/L Carbon Dioxide 35 H (23-29) mEq/L BUN 22 (8-23) mg/dL Creatinine 0.61 (0.60-1.20) mg/dL Glucose 143 H (70-105) mg/dL Calcium 8.2 L (8.6-10.3) mg/dL - VTE Documentation of Mechanical Device: Intermittent pneumatic compression device Consult Discharge Plan - Plan Instructions: Polyethylene Glycol 3350 (By mouth), Laxatives, Stimulant ( Suppository) (Rectal), Miconazole/Zinc Oxide/White Petrolatum (On the skin), Atrial Fibrillation (DC), Hiatal Hernia (DC), Hiatal Hernia (GEN), Urinary Tract Infection in Women (DC), Inguinal Hernia (GEN), Aspiration Pneumonia (DC) , Aspiration Pneumonia (GEN), Chronic Hypertension (DC), Tube Feeding (GEN) Additional Instructions: G-tube: 1) do not put any medications, liquids, flushes, or any substances in the gastric tube. 2) Alternate gastric tube clamped and to gravity every 4 hours. J-tube: 1) tube feeds per J-tube. 2) Q4 flushes with free water. 3a) Ok to give medications through J-tube if necessary; 3b) otherwise time PO medicaitons for when Gastric tube is clamped. 4) Ensure that all medications have been completely liquefied (no particles are to be seen) prior to administration through the J-tube as this tube is easily clogged. 5) Also flush with 200 and mouth after all medication administration. Drain Site Care TID: Remove split cause. Wash with antibacterial soap. Pat dry. Apply gautos/miconazole extra thick around the drain sites and on the surrounding erythema. Cover with split cause. Tape to secure. Midline Incision wound care: wash daily with antibacterial soap. Leave open to air. Consideration for staple removal will be completed at her follow-up visit. Diet: Clear liquid diet. Do not advance past clear liquids. Tube feeds per outside sales consultant recommendations per J-tube. GI: Continue miralax and dulcolax suppositories BID until having daily BMs. Then may decrease to PRN. Continue aggressive pulmonary toileting after d/c Referrals: Kayden Castillo MD [Partnered Physician] - 05/18/17 8:55 am Memo Cody MD [Primary Care Provider] - Adeline Bingham CNP [Advanced Practice Nurse] - 04/30/17 8:40 am Prescriptions: Bisacodyl [Dulcolax] 10 mg RC DAILY #30 supp.rect Miconazole w/zinc oxide&karaya [Antifungal Extra Thick] 92 appl TP TID 30 Days # 2 tube Polyethylene Glycol 3350 [MiraLAX] 17 gm PO BID #60 powd.pack <Kayden Castillo - Last Filed: 04/16/17 08:05> Date of Encounter: 04/16/17 Objective Vital Signs - Last 8 Hours Temp Pulse Resp BP Pulse Ox 04/16/17 06:00 97.8 F 81 18 145/76 94 04/16/17 05:00 97.8 F 98 18 147/67 99 04/16/17 04:06 18 90 04/16/17 00:11 18 92 Intake and Output 04/15/17 04/16/17 04/16/17 23:59 07:59 15:59 Intake Total 1098 / 1098 682 / 682 Output Total 825 / 825 400 / 400 Balance 273 / 273 282 / 282 Intake: Oral 200 / 200 240 / 240 Tube Feeding 598 / 598 292 / 292 Free Water Intake Amount 300 / 300 150 / 150 Output: Urine 50 / 50 Gastric Drainage 825 / 825 350 / 350 Other: Meal Dinner Percent of Meal Consumed 0% Stool Size Moderate Stool Consistency soft Stool Color Brown # Voids 1 # Bowel Movements 1 Weight 63.6 kg Blood Glucose* 128 142 Patient Weight 04/16/17 23:59 Weight 63.6 kg - Labs 04/16/17 05:04 04/16/17 05:04 Diabetes panel 04/16/17 Range/Units 05:04 Sodium 140 (136-145) mEq/L Potassium 3.4 L (3.5-5.1) mEq/L Chloride 103 (98-107) mEq/L Carbon Dioxide 31 H (23-29) mEq/L BUN 19 (8-23) mg/dL Creatinine 0.52 L (0.60-1.20) mg/dL Glucose 164 H (70-105) mg/dL Calcium 8.3 L (8.6-10.3) mg/dL Calcium panel 04/16/17 Range/Units 05:04 Calcium 8.3 L (8.6-10.3) mg/dL Pituitary panel 04/16/17 Range/Units 05:04 Sodium 140 (136-145) mEq/L Potassium 3.4 L (3.5-5.1) mEq/L Chloride 103 (98-107) mEq/L Carbon Dioxide 31 H (23-29) mEq/L BUN 19 (8-23) mg/dL Creatinine 0.52 L (0.60-1.20) mg/dL Glucose 164 H (70-105) mg/dL Calcium 8.3 L (8.6-10.3) mg/dL Adrenal panel 04/16/17 Range/Units 05:04 Sodium 140 (136-145) mEq/L Potassium 3.4 L (3.5-5.1) mEq/L Chloride 103 (98-107) mEq/L Carbon Dioxide 31 H (23-29) mEq/L BUN 19 (8-23) mg/dL Creatinine 0.52 L (0.60-1.20) mg/dL Glucose 164 H (70-105) mg/dL Calcium 8.3 L (8.6-10.3) mg/dL - Attending Attestation I have personally performed a face to face evaluation on this patient. I have reviewed and agree with the care plan. History and Exam by me shows: The patient is seen and evaluated. Upper GI demonstrated no evidence of leak. We will continue IV antibiotics. We will follow her pain very closely. There does not appear to be any evidence of bowel perforation. Kayden Castillo MD FACS
--- NOTE | 2017-04-15 14:11 | Internal Med Progress Note ---
<Hood Valle - Last Filed: 04/15/17 14:07> Date of Encounter: 04/15/17 Time of Encounter: 09:00 - Assessment and plan (1) Acute respiratory failure with hypoxia Current Visit: Yes Status: Acute Assessment and plan: - Acute respiratory failure with hypoxia secondary pulmonary edema after aspiration of gastrograffin as below. - CXR on 04/13/17 showed stable mild pleural effusions with mild pulmonary edema. - Pt currently tolerating 2L with O2 sats in high 90s this AM. - No reported home O2 requirement. - Patient is -13.1 L since admission Plan - Continue Lasix 20 mg by mouth via oral solution. - Also suspect some anxiety component of SOB, improved with Ativan 0.5mg. - Encouraged incentive inspirometry, acapella, and sitting up. - Overall clinically improved and goal of transferring to LTACH for recovery. 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 - G-tube clamped intermittently. Management per surgery. See note on 04/13/17 for discharge instructions. -Bowel sounds present. Reports flatus, intermittent BM. Diet advancement per surgery. Tolerating CLD in addition to gastric feedings. - Pathology results: folcally ulcerated mucosa, acute on chronic inflammation, transmural necrosis with clear margins. Plan - Further management per surgery - Feeds per gastric tube, reglan, Zofran, pain control - Patient tolerating CLD and gastric tube feedings. - She is OK to discharge to rehab per surgery team. Pending placement - SW has placement, however we will confirm that placement will be able to perform surgical discharge needs. 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 - Patient is hemodynamically stable and appears to be improving - Tolerating intermittent O2 via NC and room air at this time - Completed an 8 day course of Zosyn during stay for possible aspiration - CTA shows improvement of pleural effusions and increased airspace - No plan for bronchoscopy as patient is clinically improving and CTA was improved from previous Plan: We will continue to monitor at this time Duonebs Will likely need O2 on discharge. (4) Aspiration into respiratory tract Current Visit: Yes Status: Resolved Assessment and plan: - As above. - Tolerating her CLD without complaint. - Has completed course of Zosyn previously in stay. - Diet advancement per surgery Qualifiers: Encounter type: subsequent encounter Qualified Code(s): T17.908D - Unspecified foreign body in respiratory tract, part unspecified causing other injury, subsequent encounter (5) Tachycardia Current Visit: Yes Status: Acute Assessment and plan: - Noted atrial tachycardia with rates in 120s. -Heart rate has been moderately controlled since transfer from ICU in 80/90s - Per cardiology, start ASA when safe from a surgical perspective. Plan - Continue to monitor - Continue metoprolol 5mg q6hr PRN - Continue home BB (6) Hypertension Current Visit: Yes Status: Acute Assessment and plan: - Improved today. most recently 135/81 Continue current meds. Qualifiers: Hypertension type: essential hypertension Qualified Code(s): I10 - Essential (primary) hypertension (7) DVT (deep venous thrombosis) Current Visit: Yes Status: Acute Assessment and plan: - DVT as demonstrated on ultrasound in right upper extremity, brachial - PICC line in place, noted flow around clot - Discussed with PICC team, recommended keep PICC line in place as there is flow around and left UE has superficial venous thrombosis and high chance of DVT - Discussed anticoagulation and we will continue lovenox 80 mg BID - No symptoms, swelling measured at 32 cm, +3 cm from baseline done at PICC line placement. Plan Continue Lovenox - Will transition to coumadin with follow up at rehab and coumadin clinic. - INR 1.1 Qualifiers: DVT location: upper extremity Affected thrombotic vein of extremity: brachial Chronicity: acute Laterality: right Qualified Code(s): I82.621 - Acute embolism and thrombosis of deep veins of right upper extremity (8) Abdominal pain Current Visit: Yes Status: Resolved Assessment and plan: - New complaint of abdominal pain located in LLQ as well as left hip and thigh pain following clamping of G-tube. - Patient has been receiving Toradol scheduled for pain, liquid oxycodone with good relief. - Xray of hip revealed no acute process, degenerative changes. - CT hip and thigh show possible contusion of left thigh and small fat and bowel containing left inguinal hernia. Surgery following. Plan - Will continue pain control. - Conservative management at this time, no evidence of strangulation - Patient has no complaints of pain this AM Qualifiers: Abdominal location: unspecified location Qualified Code(s): R10.9 - Unspecified abdominal pain (9) DVT prophylaxis Current Visit: Yes Status: Acute Assessment and plan: - Lovenox, coumadin for DVT as above - Time Spent With Patient 25 - 35 minutes - Subjective Interval history: Patient was seen and examined at bedside this AM. She states that overall she is doing well today, however does complain of not being able to get enough air consistent with previous. She denies any complaints of pain. Denies need this time. We are currently awaiting placement approval - Constitutional Vitals: Temp Pulse Resp BP Pulse Ox 98.1 F 81 18 135/81 94 04/15/17 10:39 04/15/17 10:39 04/15/17 11:03 04/15/17 10:39 04/15/17 11:03 General appearance: Present: A&O X 3, answers questions appropriately Exam: Gen.: Vitals noted. No acute distress. AAOx3 HEENT: PERRL/EOMI, oropharynx clear, Normocephalic, atraumatic Cardiac: RRR, no murmur, +S1/S2 Pulmonary: Stable rales from previous. No new changes, equal chest expansion Abdomen: soft, nontender, BS noted, no guarding Extremities: no BLE edema, nontender calf, no cyanosis or clubbing Neuro: A&Ox3, moves all extremities, no focal deficits Psych: Appropriate mood and behavior Internal Medicine: Result - Labs CBC & Chem 7: 04/14/17 04:02 04/15/17 05:26 Labs: BMP 04/15/17 05:26 Sodium 139 Potassium 3.6 Chloride 99 Carbon Dioxide 35 H BUN 22 Creatinine 0.61 Glucose 143 H Calcium 8.2 L - ABG Interpretation ABG results: ABG ABG pH 7.47 pH Units (7.32-7.45) H 04/05/17 10:35 ABG pCO2 40 mmHg (35-45) 04/05/17 10:35 ABG pO2 82 mmHg (85-104) L 04/05/17 10:35 ABG O2 Saturation 97 % (95-98) 04/05/17 10:35 PT/INR, D-dimer PT 11.9 Seconds (9.4-12.1) 04/15/17 05:26 - VTE Documentation of Mechanical Device: Intermittent pneumatic compression device Consult Discharge Plan - Plan Instructions: Polyethylene Glycol 3350 (By mouth), Laxatives, Stimulant ( Suppository) (Rectal), Miconazole/Zinc Oxide/White Petrolatum (On the skin), Atrial Fibrillation (DC), Hiatal Hernia (DC), Hiatal Hernia (GEN), Urinary Tract Infection in Women (DC), Inguinal Hernia (GEN), Aspiration Pneumonia (DC) , Aspiration Pneumonia (GEN), Chronic Hypertension (DC), Tube Feeding (GEN) Additional Instructions: G-tube: 1) do not put any medications, liquids, flushes, or any substances in the gastric tube. 2) Alternate gastric tube clamped and to gravity every 4 hours. J-tube: 1) tube feeds per J-tube. 2) Q4 flushes with free water. 3a) Ok to give medications through J-tube if necessary; 3b) otherwise time PO medicaitons for when Gastric tube is clamped. 4) Ensure that all medications have been completely liquefied (no particles are to be seen) prior to administration through the J-tube as this tube is easily clogged. 5) Also flush with 200 and mouth after all medication administration. Drain Site Care TID: Remove split cause. Wash with antibacterial soap. Pat dry. Apply gautos/miconazole extra thick around the drain sites and on the surrounding erythema. Cover with split cause. Tape to secure. Midline Incision wound care: wash daily with antibacterial soap. Leave open to air. Consideration for staple removal will be completed at her follow-up visit. Diet: Clear liquid diet. Do not advance past clear liquids. Tube feeds per marketing director assisted living recommendations per J-tube. GI: Continue miralax and dulcolax suppositories BID until having daily BMs. Then may decrease to PRN. Continue aggressive pulmonary toileting after d/c Referrals: Kayden Castillo MD [Partnered Physician] - 05/18/17 8:55 am Memo Cody MD [Primary Care Provider] - Adeline Bingham CNP [Advanced Practice Nurse] - 04/30/17 8:40 am Prescriptions: Bisacodyl [Dulcolax] 10 mg RC DAILY #30 supp.rect Miconazole w/zinc oxide&karaya [Antifungal Extra Thick] 92 appl TP TID 30 Days # 2 tube Polyethylene Glycol 3350 [MiraLAX] 17 gm PO BID #60 powd.pack <Castillo Al Dylan - Last Filed: 04/15/17 15:45> Date of Encounter: 04/15/17 - Assessment and plan (1) Acute respiratory failure with hypoxia Current Visit: Yes Status: Acute (2) 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 Current Visit: Yes Status: Acute (3) DVT (deep venous thrombosis) Current Visit: Yes Status: Acute Qualifiers: DVT location: upper extremity Affected thrombotic vein of extremity: brachial Chronicity: acute Laterality: right Qualified Code(s): I82.621 - Acute embolism and thrombosis of deep veins of right upper extremity (4) Aspiration into respiratory tract Current Visit: Yes Status: Resolved Qualifiers: Encounter type: subsequent encounter Qualified Code(s): T17.908D - Unspecified foreign body in respiratory tract, part unspecified causing other injury, subsequent encounter (5) Hypertension Current Visit: Yes Status: Acute Qualifiers: Hypertension type: essential hypertension Qualified Code(s): I10 - Essential (primary) hypertension (6) Severe protein-calorie malnutrition Current Visit: Yes Status: Chronic - Constitutional Vitals: Temp Pulse Resp BP Pulse Ox 98.1 F 81 18 135/81 92 04/15/17 10:39 04/15/17 10:39 04/15/17 15:26 04/15/17 10:39 04/15/17 15:26 Internal Medicine: Result - Labs CBC & Chem 7: 04/14/17 04:02 04/15/17 05:26 Labs: BMP 04/15/17 05:26 Sodium 139 Potassium 3.6 Chloride 99 Carbon Dioxide 35 H BUN 22 Creatinine 0.61 Glucose 143 H Calcium 8.2 L - ABG Interpretation ABG results: ABG ABG pH 7.47 pH Units (7.32-7.45) H 04/05/17 10:35 ABG pCO2 40 mmHg (35-45) 04/05/17 10:35 ABG pO2 82 mmHg (85-104) L 04/05/17 10:35 ABG O2 Saturation 97 % (95-98) 04/05/17 10:35 PT/INR, D-dimer PT 11.9 Seconds (9.4-12.1) 04/15/17 05:26 - Attending Attestation I examined this patient and my medical decision-making was reviewed with the Resident Physician on 04/15/17. I agree with the documented findings, disposition and treatment plan as described except to the extent set forth below. Ms Leach is currently admitted for pneumonitis and is s/p repair of paraesophageal hernia with gastric volvulus. She remains moderate to high risk due to potential for worsening clinical status. Ms Leach is resting in bed. She continues to have intermittent dyspnea. No fever. Coughing some. Pain is controlled. Tolerating current management. Exam alert. Comfortable Mucus membrane dry Heart regular now Lungs with rhonchi at this time. Abd soft I/P 1. Hypoxia 2. Pneumonitis Further diagnoses and plan as above.
[2017-04-15] MEDS ORDERED: *HR* Warfarin 3 MG TABLET PO ONE (18:00)
[2017-04-16] MEDS: Ipratropium/Albuterol Neb 3 ML IH SCH ×7 (00:01→23:18)
[2017-04-16] MEDS ORDERED: Melatonin 3 MG TABLET PO ONE (01:36)
[2017-04-16] MEDS: Insulin LISPRO 300 UNITS/3 ML VIAL SQ SCH ×6 (01:42→21:45)
[2017-04-16] MEDS: Metoclopramide 10 MG/2 ML VIAL IVP SCH ×4 (04:40→21:44)
[2017-04-16] MEDS: *HR* Metoprolol 5 MG/5 ML VIAL IVP SCH ×4 (04:40→21:45)
[2017-04-16 05:30] LABS: Hematocrit 29.3 % (35.3-44.9); Hemoglobin 9.1 g/dL (11.5-15.4); Mean Corpuscular HGB Conc 31.1 g/dL (31.6-35.5); Mean Corpuscular Hemoglobin 27.5 pg (28.0-33.3); Mean Corpuscular Volume 88.5 fL (83.0-100.0); Mean Platelet Volume 10.5 fL (9.4-12.4); Platelet Count 345 K/mcL (140-400); Red Blood Count 3.31 M/mcL (3.82-4.97); Red Cell Distribution Width 15.3 % (11.5-14.5)
[2017-04-16 05:43] LABS: INR 1.1; Prothrombin Time 12.3 Seconds (9.4-12.1)
[2017-04-16 05:54] LABS: BUN/Creatinine Ratio 37 (6-26); Blood Urea Nitrogen 19 mg/dL (8-23); Calcium 8.3 mg/dL (8.6-10.3); Carbon Dioxide 31 mEq/L (23-29); Chloride 103 mEq/L (98-107); Glucose 164 mg/dL (70-105); Osmolality,Calculated 296 (280-300); Potassium 3.4 mEq/L (3.5-5.1); Sodium 140 mEq/L (136-145); eGFR For African Americans > 60 (> 60); eGFR For Non-African Americans > 60 (> 60)
[2017-04-16] MEDS: *HR* Enoxaparin 60 MG/0.6 ML SYRINGE SQ SCH ×2 (06:33→18:50)
[2017-04-16] MEDS: Levothyroxine 25 MCG TABLET PO SCH (06:33)
[2017-04-16] MEDS: Budesonide/Formoterol 160/4.5 MDI IH SCH ×2 (08:02→20:49)
[2017-04-16] MEDS: Furosemide Oral Soln 40 MG/4 ML UDC PO SCH (08:46)
[2017-04-16] MEDS: Multivit/Ca/Min/Fe/FA 1 TAB TABLET PO SCH (08:46)
[2017-04-16] MEDS: Aspirin 81 MG TAB.CHEW PO SCH (08:46)
[2017-04-16] MEDS: Miconazole w/zinc oxide&karaya 92 APPL/92 GM TUBE TP SCH ×3 (08:47→21:45)
[2017-04-16] MEDS ORDERED: CYANOCOBALAMIN PO SCH (09:00)
[2017-04-16] MEDS ORDERED: ASCORBIC ACID PO SCH (09:00)
[2017-04-16] MEDS ORDERED: ZINC PO SCH (09:00)
--- NOTE | 2017-04-16 12:02 | General Surgery Progress Note ---
<Adeline Bingham Shannan - Last Filed: 04/16/17 12:00> Date of Encounter: 04/16/17 Time of Encounter: 07:30 - Assessment and Plan (1) Hiatal hernia Status: Acute 04/16/2017: POD #17 as below. Final pathology noted Stomach, partial gastrectomy ; Focally ulcerated mucosa, acute and chronic inflammation and focal transmural necrosis; Margins viable. Her MARILOU drain was DC'd online 04/12/2017. Anne Marie sates her abdominal discomfort is well controlled. She endorses flatus and loose BMs. She denies n/v. She is tolerating her CLD. Her abdominal exam is overall benign. Ms Leach is ok from a surgical standpoint to ECF when appropriate from medicine standpoint (d/c planning/management per primary team) Plan: G-tube: 1) do not put any medications, liquids, flushes, or any substances in the gastric tube. 2) Alternate gastric tube clamped and to gravity every 4 hours. J-tube: 1) tube feeds per J-tube. 2) Q4 flushes with free water. 3a) Ok to give medications through J-tube if necessary; 3b) otherwise time PO medicaitons for when Gastric tube is clamped. 4) Ensure that all medications have been completely liquefied (no particles are to be seen) prior to administration through the J-tube as this tube is easily clogged. 5) Also flush with 200 and mouth after all medication administration. Drain Site Care TID: Remove split cause. Wash with antibacterial soap. Pat dry. Apply gautos/miconazole extra thick around the drain sites and on the surrounding erythema. Cover with split cause. Tape to secure. Midline Incision wound care: wash daily with antibacterial soap. Leave open to air. Consideration for staple removal will be completed at her follow-up visit. Diet: Clear liquid diet. Do not advance past clear liquids. Tube feeds per finance manager recommendations per J-tube. GI: Continue miralax and dulcolax suppositories daily PRN. 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 Segmental gastric necrosis. Distal esophageal necrosis) Procedure: #1 reduction of gastric volvulus #2 repair of hiatal hernia #3 debridement and primary repair of distal esophagus #4 resection of gastric necrosis (tangential resection of full-thickness necrotic ulcers times 4) #5 gastrostomy tube #6 jejunostomy tube Anesthesia: BERYLA Surgeon: Kayden Castillo Estimated blood loss (cc): 200 (2) Jejunostomy tube in situ Status: Acute Small bowel obstruction secondary to jejunostomy tube insertion. This is an expected finding due to the placement of the J-tube. Surrounding surgical site is drain sites with small amount of leaking around the tube and errythema. Surgery is hopeful for the J-tube to remain in place and viable for 4 weeks ( approximately the week of 04/30/2017). G-tube: 1) do not put any medications, liquids, flushes, or any substances in the gastric tube. 2) Alternate gastric tube clamped and to gravity every 4 hours. J-tube: 1) tube feeds per J-tube. 2) Q4 flushes with free water. 3a) Ok to give medications through J-tube if necessary; 3b) otherwise time PO medicaitons for when Gastric tube is clamped. 4) Ensure that all medications have been completely liquefied (no particles are to be seen) prior to administration through the J-tube as this tube is easily clogged. 5) Also flush with 200 and mouth after all medication administration. Drain Site Care TID: Remove split cause. Wash with antibacterial soap. Pat dry. Apply gautos/miconazole extra thick around the drain sites and on the surrounding erythema. Cover with split cause. Tape to secure. (3) Inguinal hernia Status: Acute Incidental finding on CT. Fat- and small bowel-containing left inguinal hernia and fat-containing right inguinal hernia. Noted on CT on 04/09/2017 there is no acute urgent surgical intervention indicated at this time. Patient may follow up with Dr. Castillo as an outpatient regarding above if the need arises. Will review at follow-up visits. Qualifiers: Obstruction and gangrene presence: without obstruction or gangrene Laterality: bilateral Recurrence: not specified as recurrent Qualified Code( s): K40.20 - Bilateral inguinal hernia, without obstruction or gangrene, not specified as recurrent (4) Aspiration into respiratory tract Status: Resolved Management per primary medicine. Currently pt is on O2 per nasal cannula. No signs of aspiration on previous modified swallow exam. Qualifiers: Encounter type: subsequent encounter Qualified Code(s): T17.908D - Unspecified foreign body in respiratory tract, part unspecified causing other injury, subsequent encounter (5) DVT (deep venous thrombosis) Status: Acute Per Primary Qualifiers: DVT location: upper extremity Affected thrombotic vein of extremity: brachial Chronicity: acute Laterality: right Qualified Code(s): I82.621 - Acute embolism and thrombosis of deep veins of right upper extremity (6) Abnormal CAT scan Status: Acute CT of hip and LLE noted per primary team. Incidental findings in the report included below. Will review with Dr. Castillo: Heterogeneous enlargement of left iliacus muscle with mild degree of adjacent fat stranding to the left iliopsoas. Findings are felt to be most consistent with strain/contusion of the iliacus with edema, hemorrhage and partial tearing. Mass lesion or infectious etiology felt unlikely, but suggest continued follow-up to assure resolution. Fat- and small bowel-containing left inguinal hernia and fat-containing right inguinal hernia. Subjective Patient reports: no new complaints, feels better, still having pain, pain is less, tolerating liquids well, voiding w/o difficulty, flatus, bowel movement, afebrile Objective Vital Signs - Last 8 Hours Temp Pulse Resp BP Pulse Ox 04/16/17 11:28 16 93 04/16/17 11:19 97.8 F 96 17 146/63 94 04/16/17 09:12 91 04/16/17 08:02 18 91 04/16/17 06:00 97.8 F 81 18 145/76 94 04/16/17 05:00 97.8 F 98 18 147/67 99 04/16/17 04:06 18 90 Intake and Output 04/15/17 04/16/17 04/16/17 23:59 07:59 15:59 Intake Total 1098 / 1098 682 / 682 520 / 520 Output Total 825 / 825 400 / 400 600 / 600 Balance 273 / 273 282 / 282 -80 / -80 Intake: Oral 200 / 200 240 / 240 220 / 220 Tube Feeding 598 / 598 292 / 292 Free Water 150 / 150 Free Water Intake Amount 300 / 300 150 / 150 150 / 150 Output: Urine 50 / 50 Catheter 0 / 0 Gastric Drainage 825 / 825 350 / 350 Wound Drainage 600 / 600 left upper abdomen 2 600 / 600 Other: Meal Dinner Breakfast Percent of Meal Consumed 0% 0% Stool Size Moderate Moderate Stool Consistency soft loose Stool Characteristics Normal for Patient Stool Color Brown Brown # Voids 1 5 # Urine Diapers 2 # Bowel Movements 1 1 Weight 63.6 kg Blood Glucose* 128 142 167 Patient Weight 04/16/17 23:59 Weight 63.6 kg - General physical appearance no distress, no pain - Eyes normal ocular movement - ENT dentures, atraumatic, normocephalic - Neck Neck exam: trachea midline, no venous distension - Respiratory other (Decreased; course) - Cardiovascular Cardiovascular exam: Present: RRR, murmurs - Abdomen Abdomen: Present: bowel sounds present, soft, tender (Expected postoperative), wound (The assessment and plan for draining descriptions) Hernia: none - Incision Incision: Present: clean and dry, intact - Integumentary no growths - Neurologic normal coordination, normal sensation - Musculoskeletal normal posture - Psychiatric oriented to time, oriented to person, oriented to place - Labs 04/16/17 05:04 04/16/17 05:04 Diabetes panel 04/16/17 Range/Units 05:04 Sodium 140 (136-145) mEq/L Potassium 3.4 L (3.5-5.1) mEq/L Chloride 103 (98-107) mEq/L Carbon Dioxide 31 H (23-29) mEq/L BUN 19 (8-23) mg/dL Creatinine 0.52 L (0.60-1.20) mg/dL Glucose 164 H (70-105) mg/dL Calcium 8.3 L (8.6-10.3) mg/dL Calcium panel 04/16/17 Range/Units 05:04 Calcium 8.3 L (8.6-10.3) mg/dL Pituitary panel 04/16/17 Range/Units 05:04 Sodium 140 (136-145) mEq/L Potassium 3.4 L (3.5-5.1) mEq/L Chloride 103 (98-107) mEq/L Carbon Dioxide 31 H (23-29) mEq/L BUN 19 (8-23) mg/dL Creatinine 0.52 L (0.60-1.20) mg/dL Glucose 164 H (70-105) mg/dL Calcium 8.3 L (8.6-10.3) mg/dL Adrenal panel 04/16/17 Range/Units 05:04 Sodium 140 (136-145) mEq/L Potassium 3.4 L (3.5-5.1) mEq/L Chloride 103 (98-107) mEq/L Carbon Dioxide 31 H (23-29) mEq/L BUN 19 (8-23) mg/dL Creatinine 0.52 L (0.60-1.20) mg/dL Glucose 164 H (70-105) mg/dL Calcium 8.3 L (8.6-10.3) mg/dL - VTE Documentation of Mechanical Device: Intermittent pneumatic compression device Consult Discharge Plan - Plan Instructions: Polyethylene Glycol 3350 (By mouth), Laxatives, Stimulant ( Suppository) (Rectal), Miconazole/Zinc Oxide/White Petrolatum (On the skin), Atrial Fibrillation (DC), Hiatal Hernia (DC), Hiatal Hernia (GEN), Urinary Tract Infection in Women (DC), Inguinal Hernia (GEN), Aspiration Pneumonia (DC) , Aspiration Pneumonia (GEN), Chronic Hypertension (DC), Tube Feeding (GEN) Additional Instructions: G-tube: 1) do not put any medications, liquids, flushes, or any substances in the gastric tube. 2) Alternate gastric tube clamped and to gravity every 4 hours. J-tube: 1) tube feeds per J-tube. 2) Q4 flushes with free water. 3a) Ok to give medications through J-tube if necessary; 3b) otherwise time PO medicaitons for when Gastric tube is clamped. 4) Ensure that all medications have been completely liquefied (no particles are to be seen) prior to administration through the J-tube as this tube is easily clogged. 5) Also flush with 200 and mouth after all medication administration. Drain Site Care TID: Remove split cause. Wash with antibacterial soap. Pat dry. Apply gautos/miconazole extra thick around the drain sites and on the surrounding erythema. Cover with split cause. Tape to secure. Midline Incision wound care: wash daily with antibacterial soap. Leave open to air. Consideration for staple removal will be completed at her follow-up visit. Diet: Clear liquid diet. Do not advance past clear liquids. Tube feeds per finance manager recommendations per J-tube. GI: Continue miralax and dulcolax suppositories BID until having daily BMs. Then may decrease to PRN. Continue aggressive pulmonary toileting after d/c Referrals: Kayden Castillo MD [Partnered Physician] - 05/18/17 8:55 am Memo Cody MD [Primary Care Provider] - Adeline Bingham CNP [Advanced Practice Nurse] - 04/30/17 8:40 am Prescriptions: Bisacodyl [Dulcolax] 10 mg RC DAILY #30 supp.rect Miconazole w/zinc oxide&karaya [Antifungal Extra Thick] 92 appl TP TID 30 Days # 2 tube Polyethylene Glycol 3350 [MiraLAX] 17 gm PO BID #60 powd.pack <Kayden Castillo - Last Filed: 04/20/17 14:09> Date of Encounter: 04/16/17 Objective - Labs 04/16/17 05:04 04/17/17 07:52 - Attending Attestation I have personally performed a face to face evaluation on this patient. I have reviewed and agree with the care plan. History and Exam by me shows: The patient was seen and evaluated with the clinical nurse practitioner. She has progressed well. I want to continue intermittent clamping and unclamping the gastrostomy tube to promote pancreatic and biliary drainage in the small bowel. I will see her as an outpatient. Kayden Castillo MD FACS
--- NOTE | 2017-04-16 15:28 | Internal Med Progress Note ---
<Hood Valle - Last Filed: 04/16/17 16:37> Date of Encounter: 04/16/17 Time of Encounter: 15:28 - Assessment and plan (1) Acute respiratory failure with hypoxia Current Visit: Yes Status: Acute Assessment and plan: - Acute respiratory failure with hypoxia secondary pulmonary edema after aspiration of gastrograffin as below. - CXR on 04/13/17 showed stable mild pleural effusions with mild pulmonary edema. - Pt currently tolerating 2L with O2 sats in high 90s this AM. - No reported home O2 requirement. - Patient is -12 L since admission Plan - Continue Lasix 20 mg by mouth via oral solution. - Also suspect some anxiety component of SOB, improved with Ativan 0.5mg. - Encouraged incentive inspirometry, acapella, and sitting up. - Overall clinically improved and goal of transferring to LTACH vs SNF for recovery. 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 - G-tube clamped intermittently. Management per surgery. See note on 04/13/17 for discharge instructions. -Bowel sounds present. Reports flatus, intermittent BM. Diet advancement per surgery. Tolerating CLD in addition to gastric feedings. - Pathology results: folcally ulcerated mucosa, acute on chronic inflammation, transmural necrosis with clear margins. Plan - Further management per surgery - Feeds per gastric tube, reglan, Zofran, pain control - Patient tolerating CLD and gastric tube feedings. - She is OK to discharge to rehab per surgery team. Pending placement - SW has placement, however we will confirm that placement will be able to perform surgical discharge needs. (3) 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 Current Visit: Yes Status: Resolved Assessment and plan: - Patient was noted to aspirate all of her Gastrograffin and could not complete the upper GI study. - Patient is hemodynamically stable and appears to be improving - Tolerating intermittent O2 via NC and room air at this time - Completed an 8 day course of Zosyn during stay for possible aspiration - CTA shows improvement of pleural effusions and increased airspace - No plan for bronchoscopy as patient is clinically improving and CTA was improved from previous Plan: We will continue to monitor at this time Duonebs Will likely need O2 on discharge. (4) Aspiration into respiratory tract Current Visit: Yes Status: Resolved Assessment and plan: - As above. - Tolerating her CLD without complaint. - Has completed course of Zosyn previously in stay. - Diet advancement per surgery Qualifiers: Encounter type: subsequent encounter Qualified Code(s): T17.908D - Unspecified foreign body in respiratory tract, part unspecified causing other injury, subsequent encounter (5) Tachycardia Current Visit: Yes Status: Acute Assessment and plan: - Noted atrial tachycardia with rates in 120s. -Heart rate has been moderately controlled since transfer from ICU in 80/90s - Per cardiology, start ASA when safe from a surgical perspective. Plan - Continue to monitor - Continue metoprolol 5mg q6hr PRN - Continue home BB (6) Hypertension Current Visit: Yes Status: Acute Assessment and plan: - Improved today. most recently 145/76 Continue current meds. Qualifiers: Hypertension type: essential hypertension Qualified Code(s): I10 - Essential (primary) hypertension (7) DVT (deep venous thrombosis) Current Visit: Yes Status: Acute Assessment and plan: - DVT as demonstrated on ultrasound in right upper extremity, brachial - PICC line in place, noted flow around clot - Discussed with PICC team, recommended keep PICC line in place as there is flow around and left UE has superficial venous thrombosis and high chance of DVT - Discussed anticoagulation and we will continue lovenox 80 mg BID - No symptoms, swelling measured at 32 cm, +3 cm from baseline done at PICC line placement. Plan Continue Lovenox - Will transition to coumadin with follow up at rehab and coumadin clinic. - INR 1.1 Qualifiers: DVT location: upper extremity Affected thrombotic vein of extremity: brachial Chronicity: acute Laterality: right Qualified Code(s): I82.621 - Acute embolism and thrombosis of deep veins of right upper extremity (8) Abdominal pain Current Visit: Yes Status: Resolved Assessment and plan: - New complaint of abdominal pain located in LLQ as well as left hip and thigh pain following clamping of G-tube. - Patient has been receiving Toradol scheduled for pain, liquid oxycodone with good relief. - Xray of hip revealed no acute process, degenerative changes. - CT hip and thigh show possible contusion of left thigh and small fat and bowel containing left inguinal hernia. Surgery following. Plan - Will continue pain control. - Conservative management at this time, no evidence of strangulation - Patient has no complaints of pain this AM Qualifiers: Abdominal location: unspecified location Qualified Code(s): R10.9 - Unspecified abdominal pain (9) DVT prophylaxis Current Visit: Yes Status: Acute Assessment and plan: - Lovenox, coumadin for DVT as above - Time Spent With Patient less than 15 minutes - Subjective Interval history: Patient was seen and examined at bedside this AM. She states that overall she is doing well today, however does complain of not being able to get enough air consistent with previous. She denies any complaints of pain. Denies need this time. We are currently awaiting placement approval - Constitutional Vitals: Temp Pulse Resp BP Pulse Ox 97.8 F 96 16 146/63 93 04/16/17 11:19 04/16/17 11:19 04/16/17 11:28 04/16/17 11:19 04/16/17 11:28 General appearance: Present: A&O X 3, answers questions appropriately Exam: Gen.: Vitals noted. No acute distress. AAOx3 HEENT: PERRL/EOMI, oropharynx clear, Normocephalic, atraumatic Cardiac: RRR, no murmur, +S1/S2 Pulmonary: Moderate rhonchi consistent with previous. equal chest expansion Abdomen: soft, nontender, BS noted, no guarding Extremities: no BLE edema, nontender calf, no cyanosis or clubbing Neuro: A&Ox3, moves all extremities, no focal deficits Psych: Appropriate mood and behavior Internal Medicine: Result - Labs CBC & Chem 7: 04/16/17 05:04 04/16/17 05:04 Labs: Short CBC 04/16/17 Range/Units 05:04 WBC 5.8 (4.3-11.1) K/mcL Hgb 9.1 L (11.5-15.4) g/dL Hct 29.3 L (35.3-44.9) % Plt Count 345 (140-400) K/mcL BMP 04/16/17 05:04 Sodium 140 Potassium 3.4 L Chloride 103 Carbon Dioxide 31 H BUN 19 Creatinine 0.52 L Glucose 164 H Calcium 8.3 L - ABG Interpretation ABG results: ABG ABG pH 7.47 pH Units (7.32-7.45) H 04/05/17 10:35 ABG pCO2 40 mmHg (35-45) 04/05/17 10:35 ABG pO2 82 mmHg (85-104) L 04/05/17 10:35 ABG O2 Saturation 97 % (95-98) 04/05/17 10:35 PT/INR, D-dimer PT 12.3 Seconds (9.4-12.1) H 04/16/17 05:04 - VTE Documentation of Mechanical Device: Intermittent pneumatic compression device Consult Discharge Plan - Plan Instructions: Polyethylene Glycol 3350 (By mouth), Laxatives, Stimulant ( Suppository) (Rectal), Miconazole/Zinc Oxide/White Petrolatum (On the skin), Atrial Fibrillation (DC), Hiatal Hernia (DC), Hiatal Hernia (GEN), Urinary Tract Infection in Women (DC), Inguinal Hernia (GEN), Aspiration Pneumonia (DC) , Aspiration Pneumonia (GEN), Chronic Hypertension (DC), Tube Feeding (GEN) Additional Instructions: G-tube: 1) do not put any medications, liquids, flushes, or any substances in the gastric tube. 2) Alternate gastric tube clamped and to gravity every 4 hours. J-tube: 1) tube feeds per J-tube. 2) Q4 flushes with free water. 3a) Ok to give medications through J-tube if necessary; 3b) otherwise time PO medicaitons for when Gastric tube is clamped. 4) Ensure that all medications have been completely liquefied (no particles are to be seen) prior to administration through the J-tube as this tube is easily clogged. 5) Also flush with 200 and mouth after all medication administration. Drain Site Care TID: Remove split cause. Wash with antibacterial soap. Pat dry. Apply gautos/miconazole extra thick around the drain sites and on the surrounding erythema. Cover with split cause. Tape to secure. Midline Incision wound care: wash daily with antibacterial soap. Leave open to air. Consideration for staple removal will be completed at her follow-up visit. Diet: Clear liquid diet. Do not advance past clear liquids. Tube feeds per valet attendant recommendations per J-tube. GI: Continue miralax and dulcolax suppositories BID until having daily BMs. Then may decrease to PRN. Continue aggressive pulmonary toileting after d/c Referrals: Kayden Castillo MD [Partnered Physician] - 05/18/17 8:55 am Memo Cody MD [Primary Care Provider] - Adeline Bingham CNP [Advanced Practice Nurse] - 04/30/17 8:40 am Prescriptions: Bisacodyl [Dulcolax] 10 mg RC DAILY #30 supp.rect Miconazole w/zinc oxide&karaya [Antifungal Extra Thick] 92 appl TP TID 30 Days # 2 tube Polyethylene Glycol 3350 [MiraLAX] 17 gm PO BID #60 powd.pack <Castillo Al - Last Filed: 04/16/17 19:12> Date of Encounter: 04/16/17 - Assessment and plan (1) Acute respiratory failure with hypoxia Current Visit: Yes Status: Acute (2) 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 Current Visit: Yes Status: Resolved (3) DVT (deep venous thrombosis) Current Visit: Yes Status: Acute Qualifiers: DVT location: upper extremity Affected thrombotic vein of extremity: brachial Chronicity: acute Laterality: right Qualified Code(s): I82.621 - Acute embolism and thrombosis of deep veins of right upper extremity (4) Aspiration into respiratory tract Current Visit: Yes Status: Resolved Qualifiers: Encounter type: subsequent encounter Qualified Code(s): T17.908D - Unspecified foreign body in respiratory tract, part unspecified causing other injury, subsequent encounter (5) Hypertension Current Visit: Yes Status: Acute Qualifiers: Hypertension type: essential hypertension Qualified Code(s): I10 - Essential (primary) hypertension (6) Severe protein-calorie malnutrition Current Visit: Yes Status: Chronic - Constitutional Vitals: Temp Pulse Resp BP Pulse Ox 97.5 F L 107 18 155/99 95 04/16/17 16:00 04/16/17 16:00 04/16/17 16:00 04/16/17 16:00 04/16/17 16:00 Internal Medicine: Result - Labs CBC & Chem 7: 04/16/17 05:04 04/16/17 05:04 Labs: Short CBC 04/16/17 Range/Units 05:04 WBC 5.8 (4.3-11.1) K/mcL Hgb 9.1 L (11.5-15.4) g/dL Hct 29.3 L (35.3-44.9) % Plt Count 345 (140-400) K/mcL BMP 04/16/17 05:04 Sodium 140 Potassium 3.4 L Chloride 103 Carbon Dioxide 31 H BUN 19 Creatinine 0.52 L Glucose 164 H Calcium 8.3 L - ABG Interpretation ABG results: ABG ABG pH 7.47 pH Units (7.32-7.45) H 04/05/17 10:35 ABG pCO2 40 mmHg (35-45) 04/05/17 10:35 ABG pO2 82 mmHg (85-104) L 04/05/17 10:35 ABG O2 Saturation 97 % (95-98) 04/05/17 10:35 PT/INR, D-dimer PT 12.3 Seconds (9.4-12.1) H 04/16/17 05:04 - Attending Attestation I examined this patient and my medical decision-making was reviewed with the Resident Physician on 04/16/17. I agree with the documented findings, disposition and treatment plan as described except to the extent set forth below. Ms Leach is currently admitted for aspiration and incarcerated hernia. She remains moderate to high risk due to potential for worsening clinical status. Ms Leach is up in chair. She feels OK at this time. No fever. Breathing has been up and down Exam alert Comfortable Mucus membranes dry Heart reg Rhonchi heard I/P 1. Resp failure 2. Pneumonitis Further diagnoses and plan as above.
[2017-04-16] MEDS ORDERED: *HR* Warfarin 5 MG TABLET PO ONE (18:00)
[2017-04-17] MEDS: Insulin LISPRO 300 UNITS/3 ML VIAL SQ SCH ×5 (00:31→16:41)
[2017-04-17] MEDS: Metoclopramide 10 MG/2 ML VIAL IVP SCH ×3 (04:28→14:40)
[2017-04-17] MEDS: *HR* Metoprolol 5 MG/5 ML VIAL IVP SCH ×3 (04:28→14:40)
[2017-04-17] MEDS: Ipratropium/Albuterol Neb 3 ML IH SCH ×6 (04:45→23:29)
[2017-04-17] MEDS: Levothyroxine 25 MCG TABLET PO SCH (06:21)
[2017-04-17] MEDS: *HR* Enoxaparin 60 MG/0.6 ML SYRINGE SQ SCH ×2 (06:21→16:40)
[2017-04-17] MEDS: Budesonide/Formoterol 160/4.5 MDI IH SCH ×2 (07:20→19:41)
[2017-04-17] MEDS: Furosemide Oral Soln 40 MG/4 ML UDC PO SCH (08:14)
[2017-04-17] MEDS: Miconazole w/zinc oxide&karaya 92 APPL/92 GM TUBE TP SCH ×2 (08:14→14:40)
[2017-04-17] MEDS: Multivit/Ca/Min/Fe/FA 1 TAB TABLET PO SCH (08:14)
[2017-04-17] MEDS: Aspirin 81 MG TAB.CHEW PO SCH (08:14)
[2017-04-17 08:28] LABS: INR 1.3; Prothrombin Time 14.6 Seconds (9.4-12.1)
[2017-04-17 08:59] LABS: BUN/Creatinine Ratio 38 (6-26); Blood Urea Nitrogen 20 mg/dL (8-23); Calcium 8.4 mg/dL (8.6-10.3); Carbon Dioxide 30 mEq/L (23-29); Chloride 101 mEq/L (98-107); Glucose 143 mg/dL (70-105); Osmolality,Calculated 289 (280-300); Potassium 3.9 mEq/L (3.5-5.1); Sodium 137 mEq/L (136-145); eGFR For African Americans > 60 (> 60); eGFR For Non-African Americans > 60 (> 60)
--- NOTE | 2017-04-17 17:42 | General Surgery Progress Note ---
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 Subjective Patient reports: no new complaints Objective Vital Signs - Last 8 Hours Temp Pulse Resp BP Pulse Ox 04/17/17 16:31 98.2 F 105 19 126/84 93 04/17/17 15:12 19 96 04/17/17 11:40 97.8 F 85 18 116/77 100 04/17/17 11:26 20 93 Intake and Output 04/17/17 04/17/17 04/17/17 07:59 15:59 23:59 Intake Total 632 / 632 1023 / 1023 Output Total 135 / 135 300 / 300 Balance 497 / 497 723 / 723 Intake: Oral 0 / 0 360 / 360 Tube Feeding 332 / 332 363 / 363 Free Water 300 / 300 300 / 300 Output: Gastric Drainage 135 / 135 Wound Drainage 300 / 300 left upper abdomen 2 300 / 300 Other: Meal Breakfast # Voids 0 # Urine Diapers 1 0 Weight 61.3 kg Blood Glucose* 138 177 142 Patient Weight 04/17/17 23:59 Weight 61.3 kg - General physical appearance chronically ill - Eyes PERRL - ENT normal pinna, normal nares - Neck Neck exam: trachea midline - Respiratory normal expansion - Cardiovascular Cardiovascular exam: Present: RRR - Abdomen Abdomen: Present: bowel sounds present - Incision Incision: Present: intact - Labs 04/16/17 05:04 04/17/17 07:52 Diabetes panel 04/17/17 Range/Units 07:52 Sodium 137 (136-145) mEq/L Potassium 3.9 (3.5-5.1) mEq/L Chloride 101 (98-107) mEq/L Carbon Dioxide 30 H (23-29) mEq/L BUN 20 (8-23) mg/dL Creatinine 0.52 L (0.60-1.20) mg/dL Glucose 143 H (70-105) mg/dL Calcium 8.4 L (8.6-10.3) mg/dL Calcium panel 04/17/17 Range/Units 07:52 Calcium 8.4 L (8.6-10.3) mg/dL Pituitary panel 04/17/17 Range/Units 07:52 Sodium 137 (136-145) mEq/L Potassium 3.9 (3.5-5.1) mEq/L Chloride 101 (98-107) mEq/L Carbon Dioxide 30 H (23-29) mEq/L BUN 20 (8-23) mg/dL Creatinine 0.52 L (0.60-1.20) mg/dL Glucose 143 H (70-105) mg/dL Calcium 8.4 L (8.6-10.3) mg/dL Adrenal panel 04/17/17 Range/Units 07:52 Sodium 137 (136-145) mEq/L Potassium 3.9 (3.5-5.1) mEq/L Chloride 101 (98-107) mEq/L Carbon Dioxide 30 H (23-29) mEq/L BUN 20 (8-23) mg/dL Creatinine 0.52 L (0.60-1.20) mg/dL Glucose 143 H (70-105) mg/dL Calcium 8.4 L (8.6-10.3) mg/dL - VTE Documentation of Mechanical Device: Intermittent pneumatic compression device Consult Discharge Plan - Plan Instructions: Polyethylene Glycol 3350 (By mouth), Laxatives, Stimulant ( Suppository) (Rectal), Miconazole/Zinc Oxide/White Petrolatum (On the skin), Atrial Fibrillation (DC), Hiatal Hernia (DC), Hiatal Hernia (GEN), Urinary Tract Infection in Women (DC), Inguinal Hernia (GEN), Aspiration Pneumonia (DC) , Aspiration Pneumonia (GEN), Chronic Hypertension (DC), Tube Feeding (GEN) Additional Instructions: G-tube: 1) do not put any medications, liquids, flushes, or any substances in the gastric tube. 2) Alternate gastric tube clamped and to gravity every 4 hours. J-tube: 1) tube feeds per J-tube. 2) Q4 flushes with free water. 3a) Ok to give medications through J-tube if necessary; 3b) otherwise time PO medicaitons for when Gastric tube is clamped. 4) Ensure that all medications have been completely liquefied (no particles are to be seen) prior to administration through the J-tube as this tube is easily clogged. 5) Also flush with 200 and mouth after all medication administration. Drain Site Care TID: Remove split cause. Wash with antibacterial soap. Pat dry. Apply gautos/miconazole extra thick around the drain sites and on the surrounding erythema. Cover with split cause. Tape to secure. Midline Incision wound care: wash daily with antibacterial soap. Leave open to air. Consideration for staple removal will be completed at her follow-up visit. Diet: Clear liquid diet. Do not advance past clear liquids. Tube feeds per jute bag clipper recommendations per J-tube. GI: Continue miralax and dulcolax suppositories BID until having daily BMs. Then may decrease to PRN. Continue aggressive pulmonary toileting after d/c Referrals: Kayden Castillo MD [Partnered Physician] - 05/18/17 8:55 am Memo Cody MD [Primary Care Provider] - Adeline Bingham CNP [Advanced Practice Nurse] - 04/30/17 8:40 am Prescriptions: Bisacodyl [Dulcolax] 10 mg RC DAILY #30 supp.rect Miconazole w/zinc oxide&karaya [Antifungal Extra Thick] 92 appl TP TID 30 Days # 2 tube Polyethylene Glycol 3350 [MiraLAX] 17 gm PO BID #60 powd.pack
[2017-04-17] MEDS ORDERED: *HR* Warfarin 3 MG TABLET PO ONE (18:00)
--- NOTE | 2017-04-17 18:15 | Internal Med Progress Note ---
Date of Encounter: 04/17/17 Time of Encounter: 09:00 - Assessment and plan (1) Acute respiratory failure with hypoxia Current Visit: Yes Status: Acute Assessment and plan: - Acute respiratory failure with hypoxia secondary pulmonary edema after aspiration of gastrograffin as below. - CXR on 04/13/17 showed stable mild pleural effusions with mild pulmonary edema. - Pt currently tolerating 2L with O2 sats in high 90s this AM. - No reported home O2 requirement. Plan - Continue Lasix 20 mg by mouth via oral solution. - Also suspect some anxiety component of SOB, improved with Ativan 0.5mg. - Encouraged incentive inspirometry, acapella, and sitting up. - Overall clinically improved and goal of transferring to LTACH vs SNF for recovery. SW following (2) 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 Current Visit: Yes Status: Resolved Assessment and plan: - Patient was noted to aspirate all of her Gastrograffin and could not complete the upper GI study. - Patient is hemodynamically stable and appears to be improving - Tolerating intermittent O2 via NC and room air at this time - Completed an 8 day course of Zosyn during stay for possible aspiration - CTA shows improvement of pleural effusions and increased airspace - No plan for bronchoscopy as patient is clinically improving and CTA was improved from previous Plan: We will continue to monitor at this time Duonebs Will likely need O2 on discharge. (3) DVT (deep venous thrombosis) Current Visit: Yes Status: Acute Assessment and plan: Needs 3 months of anticoagulation. Qualifiers: DVT location: upper extremity Affected thrombotic vein of extremity: brachial Chronicity: acute Laterality: right Qualified Code(s): I82.621 - Acute embolism and thrombosis of deep veins of right upper extremity (4) Aspiration into respiratory tract Current Visit: Yes Status: Resolved Assessment and plan: - As above. - Tolerating her CLD without complaint. - Has completed course of Zosyn previously in stay. - Diet advancement per surgery Qualifiers: Encounter type: subsequent encounter Qualified Code(s): T17.908D - Unspecified foreign body in respiratory tract, part unspecified causing other injury, subsequent encounter (5) Hypertension Current Visit: Yes Status: Acute Assessment and plan: - Improved today. most recently 145/76 Continue current meds. Qualifiers: Hypertension type: essential hypertension Qualified Code(s): I10 - Essential (primary) hypertension (6) Severe protein-calorie malnutrition Current Visit: Yes Status: Chronic Assessment and plan: Currently on TPN - Subjective Interval history: Ms Leach is currently admitted for paraesophageal hernia with gastric voluvulus s/p repair. She remains moderate to high risk due to potential for worsening clinical status. Ms Leach feeling OK. No fever or chills. Awaiting bed at LTACH. - Constitutional Vitals: Temp Pulse Resp BP Pulse Ox 98.2 F 105 19 126/84 93 04/17/17 16:31 04/17/17 16:31 04/17/17 16:31 04/17/17 16:31 04/17/17 16:31 General appearance: Present: A&O X 3, answers questions appropriately - Head Head exam: Present: normocephalic - Eye Eye exam: Present: conjuntiva pink - ENT ENT exam: Present: mucous membranes moist - Respiratory Respiratory exam: Present: decreased breath sounds, rhonchi. Absent: wheezes - Cardiovascular Cardiovascular exam: Present: distant heart sounds, RRR - GI/Abdominal GI/Abdominal exam: Present: diminished bowel sounds - Extremities Exam Extremities exam: Present: warm. Absent: tenderness - Neurological Exam Neurological exam: Present: alert, oriented X3 - Skin Skin exam: Present: warm. Absent: rash Internal Medicine: Result - Labs CBC & Chem 7: 04/16/17 05:04 04/17/17 07:52 Labs: BMP 04/17/17 07:52 Sodium 137 Potassium 3.9 Chloride 101 Carbon Dioxide 30 H BUN 20 Creatinine 0.52 L Glucose 143 H Calcium 8.4 L - ABG Interpretation ABG results: ABG ABG pH 7.47 pH Units (7.32-7.45) H 04/05/17 10:35 ABG pCO2 40 mmHg (35-45) 04/05/17 10:35 ABG pO2 82 mmHg (85-104) L 04/05/17 10:35 ABG O2 Saturation 97 % (95-98) 04/05/17 10:35 PT/INR, D-dimer PT 14.6 Seconds (9.4-12.1) H 04/17/17 07:52 - VTE Documentation of Mechanical Device: Intermittent pneumatic compression device Consult Discharge Plan - Plan Instructions: Polyethylene Glycol 3350 (By mouth), Laxatives, Stimulant ( Suppository) (Rectal), Miconazole/Zinc Oxide/White Petrolatum (On the skin), Atrial Fibrillation (DC), Hiatal Hernia (DC), Hiatal Hernia (GEN), Urinary Tract Infection in Women (DC), Inguinal Hernia (GEN), Aspiration Pneumonia (DC) , Aspiration Pneumonia (GEN), Chronic Hypertension (DC), Tube Feeding (GEN) Additional Instructions: G-tube: 1) do not put any medications, liquids, flushes, or any substances in the gastric tube. 2) Alternate gastric tube clamped and to gravity every 4 hours. J-tube: 1) tube feeds per J-tube. 2) Q4 flushes with free water. 3a) Ok to give medications through J-tube if necessary; 3b) otherwise time PO medicaitons for when Gastric tube is clamped. 4) Ensure that all medications have been completely liquefied (no particles are to be seen) prior to administration through the J-tube as this tube is easily clogged. 5) Also flush with 200 and mouth after all medication administration. Drain Site Care TID: Remove split cause. Wash with antibacterial soap. Pat dry. Apply gautos/miconazole extra thick around the drain sites and on the surrounding erythema. Cover with split cause. Tape to secure. Midline Incision wound care: wash daily with antibacterial soap. Leave open to air. Consideration for staple removal will be completed at her follow-up visit. Diet: Clear liquid diet. Do not advance past clear liquids. Tube feeds per voip network engineer recommendations per J-tube. GI: Continue miralax and dulcolax suppositories BID until having daily BMs. Then may decrease to PRN. Continue aggressive pulmonary toileting after d/c Referrals: Kayden Castillo MD [Partnered Physician] - 05/18/17 8:55 am Memo Cody MD [Primary Care Provider] - Adeline Bingham CNP [Advanced Practice Nurse] - 04/30/17 8:40 am Prescriptions: Bisacodyl [Dulcolax] 10 mg RC DAILY #30 supp.rect Miconazole w/zinc oxide&karaya [Antifungal Extra Thick] 92 appl TP TID 30 Days # 2 tube Polyethylene Glycol 3350 [MiraLAX] 17 gm PO BID #60 powd.pack
[2017-04-17 20:24] VITALS: BP 122/75
--- NOTE | 2017-04-19 18:48 | Discharge Summary ---
Date of Encounter: 04/17/17 Time of Encounter: 19:00 - Discharge Diagnosis (1) Acute respiratory failure with hypoxia Priority: Primary Status: Acute (2) 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 Priority: Secondary Status: Resolved (3) DVT (deep venous thrombosis) Priority: Secondary Status: Acute Qualifiers: DVT location: upper extremity Affected thrombotic vein of extremity: brachial Chronicity: acute Laterality: right Qualified Code(s): I82.621 - Acute embolism and thrombosis of deep veins of right upper extremity (4) Aspiration into respiratory tract Priority: Secondary Status: Resolved Qualifiers: Encounter type: subsequent encounter Qualified Code(s): T17.908D - Unspecified foreign body in respiratory tract, part unspecified causing other injury, subsequent encounter (5) Hypertension Priority: Secondary Status: Acute Qualifiers: Hypertension type: essential hypertension Qualified Code(s): I10 - Essential (primary) hypertension (6) Severe protein-calorie malnutrition Priority: Secondary Status: Chronic (7) 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 Priority: Primary Status: Acute (8) Jejunostomy tube in situ Priority: Secondary Status: Chronic - Discharge Medications Prescriptions: Bisacodyl [Dulcolax] 10 mg RC DAILY #30 supp.rect Miconazole w/zinc oxide&karaya [Antifungal Extra Thick] 92 appl TP TID 30 Days # 2 tube Polyethylene Glycol 3350 [MiraLAX] 17 gm PO BID #60 powd.pack Home Medications: Levothyroxine [Synthroid] 25 mcg PO DAILY 02/22/17 [History] Sertraline [Zoloft] 50 mg PO DAILY 02/22/17 [History] Lovastatin [Mevacor] 40 mg PO HS 03/24/17 [History] Ranitidine HCl [Zantac] 150 mg PO BID 03/24/17 [History] Ascorbic Acid/Vit B12/Zinc [Sm Zinc Plus Lozenge] 1 tab PO DAILY 03/25/17 [ History] Aspirin [Lo-Dose Aspirin EC] 81 mg PO DAILY 03/25/17 [History] Ferrous Sulfate [Iron] 81 mg PO DAILY 03/25/17 [History] Multivitamin [One Daily Multivitamin] 1 tab PO DAILY 03/25/17 [History] [place]-3 Fatty Acids [Fish Oil] 300 mg PO DAILY 03/25/17 [History] Bisacodyl [Dulcolax] 10 mg RC DAILY #30 supp.rect 04/13/17 [Rx] Miconazole w/zinc oxide&karaya [Antifungal Extra Thick] 92 appl TP TID 30 Days # 2 tube 04/13/17 [Rx] Polyethylene Glycol 3350 [MiraLAX] 17 gm PO BID #60 powd.pack 04/13/17 [Rx] Allergies/Adverse Reactions: 3 Allergy/AdvReac Type Severity Reaction Status Date / Time rosuvastatin [From Crestor] Allergy Hives Verified 03/24/17 20:46 Date of admission: 03/25/17 18:47 Primary care physician: Memo Cody MD Consults: 03/25/17 04:01 Consult to Surgery [CONS] Routine Consulting Provider: Kayden Castillo Reason for Consult: SBO Call Completed: No 03/25/17 08:19 Consult to Physical Therapy [CONS] Routine Comment: Evaluate, develop and implement POC Reason for Consult: weakness 03/25/17 15:58 Consult to Cardiology [CONS] Stat Comment: Spoke with Dr. Bernard Consulting Provider: [facility] [place] Reason for Consult: New onset atrial fib w/RVR, NS STT wave changes Time Notified: 15:59 Call Completed: Yes 03/25/17 17:44 Consult to Critical Care [CONS] Stat Consulting Provider: [facility] Reason for Consult: Gastrograffin aspiration; spoke with Dr. Bennett in the ICU. Time Notified: 17:30 Call Completed: Yes 03/26/17 11:15 Consult to Nutrition [CONS] Routine Comment: Consulting Provider: NUTRITION Reason for Dietary Consult: TPN Start and Manage 03/26/17 11:43 PICC Consult [Consult to Invasive Line Access Team] [CONS] Routine Reason for Consult: TPN Line Type: PICC 03/26/17 16:48 Consult to Invasive Line Access Team [CONS] Routine Reason for Consult: Picc Line Insertion for TPN Line Type: PICC 03/27/17 12:26 Consult to Occupational Therapy [CONS] Routine Comment: Evaluate, develop and implement POC Reason for Consult: weakness 04/02/17 08:52 Consult to Respiratory Therapy [CONS] Routine Reason for Consult: Management for post-operative patient- concern for atelactasis Call Completed: Yes 04/05/17 09:13 Consult to Art Objects Supervisor [CONS] Routine Reason for SW Consult: PT/OT recommending swing bed 04/07/17 08:00 Consult to Speech Therapy [CONS] Routine Comment: Evaluate, develop and implement POC Reason for Consult: Pt is currently NPO and is aspiration risk Call Completed: No 04/13/17 09:02 Consult to Respiratory Therapy [CONS] Routine Reason for Consult: [place] Call Completed: No 04/14/17 15:07 Consult to Invasive Line Access Team [CONS] Routine Reason for Consult: limited vascular access Line Type: EPIV Discharging clinician: Castillo Al Anticipated date of discharge: 04/17/17 - Patient Status Disposition: Transfer Other Condition: Fair Functional capacity at discharge: uses cane/walker Overall status at discharge: patient is progressing back to baseline - Discharge Instructions Instructions: Polyethylene Glycol 3350 (By mouth), Laxatives, Stimulant ( Suppository) (Rectal), Miconazole/Zinc Oxide/White Petrolatum (On the skin), Atrial Fibrillation (DC), Hiatal Hernia (DC), Hiatal Hernia (GEN), Urinary Tract Infection in Women (DC), Inguinal Hernia (GEN), Aspiration Pneumonia (DC) , Aspiration Pneumonia (GEN), Chronic Hypertension (DC), Tube Feeding (GEN) Follow Up With: Kayden Castillo MD [Partnered Physician] - 05/18/17 8:55 am Memo Cody MD [Primary Care Provider] - Adeline Bingham CNP [Advanced Practice Nurse] - 04/30/17 8:40 am Additional Instructions: G-tube: 1) do not put any medications, liquids, flushes, or any substances in the gastric tube. 2) Alternate gastric tube clamped and to gravity every 4 hours. J-tube: 1) tube feeds per J-tube. 2) Q4 flushes with free water. 3a) Ok to give medications through J-tube if necessary; 3b) otherwise time PO medicaitons for when Gastric tube is clamped. 4) Ensure that all medications have been completely liquefied (no particles are to be seen) prior to administration through the J-tube as this tube is easily clogged. 5) Also flush with 200 and mouth after all medication administration. Drain Site Care TID: Remove split cause. Wash with antibacterial soap. Pat dry. Apply gautos/miconazole extra thick around the drain sites and on the surrounding erythema. Cover with split cause. Tape to secure. Midline Incision wound care: wash daily with antibacterial soap. Leave open to air. Consideration for staple removal will be completed at her follow-up visit. Diet: Clear liquid diet. Do not advance past clear liquids. Tube feeds per medical lab assistant recommendations per J-tube. GI: Continue miralax and dulcolax suppositories BID until having daily BMs. Then may decrease to PRN. Continue aggressive pulmonary toileting after d/c - Diet and Activity Activity: increase activity as tolerated Hospital course: With a past medical history of hypertension, hypothyroidism presented to the emergency room with a chief complaint of nausea and vomiting. She states the vomit contained a dark brown material. Labs were unremarkable. Vitals are significant for heart rate of 102, blood pressure 162/106, 93% on [address] obtained at outside facility showed a large hiatal hernia without other abdominal pathology. General surgical consulted. During upper GI series , patient aspirated Gastrografin, procedure was stopped immediately. At this time, NG tube was placed and she was transferred to the intensive care unit. Additionally, she also went into atrial fibrillation with rapid ventricular response with rate in the 120s and cardiology was consulted. She was started on Zosyn for aspiration coverage, Solu-Medrol and duo nebs at this time completed an 8 day course of Zosyn. She was also treated with metoprolol for atrial fibrillation. 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 Pathology showed focally ulcerated mucosa, acute on chronic inflammation, transmural necrosis with clear margins. In this time she did receive TPN nutrition and gastric feedings were initiated and escalated to goal per dietary. She was noted to have an incidental deep venous thrombosis in her right upper extremity during this time started on Lovenox. During the course of the next several days, patient did gradually improve. Extended stay was necessary due to tenuous respiratory status as well as major surgery recovery. General surgery did continue to follow the patient increased her tube feedings as able. She was at this point transferred to telemetry floor from ICU. Her respiratory status also improved after completing antibiotic as well as receiving Lasix for her pleural effusion and pulmonary edema demonstrated on chest CT. Following her procedure, patient did undergo a barium swallow with no evidence of aspiration. She was started on a clear liquid diet and is tolerating it well. She is additionally receiving tube feedings through her j- tube. Her respiratory status did improve and on day of discharge, she is tolerating 2 L of oxygen. Heart rate has been well controlled in the 80s and 90s on beta tonja. She will be discharged to half-way facility with specific instructions on G-tube, J-tube management. She will be transitioned to warfarin for long-term anticoagulation. At this time she will be discharged to half-way facility in stable medical condition for further rehabilitation before returning home. All questions were answered she was instructed to follow-up with her primary care physician as well as surgery. - Time Spent with Patient Total time spent providing and/or coordinating discharge services: 38min - Constitutional Vitals: Temp Pulse Resp BP Pulse Ox 99.8 F H 107 16 122/75 94 04/17/17 20:22 04/17/17 20:22 04/17/17 20:22 04/17/17 20:22 04/17/17 20:22 General appearance: Present: A&O X 3, answers questions appropriately - Head Head exam: Present: normocephalic - Eye Eye exam: Present: EOMI, conjuntiva pink - ENT ENT exam: Present: mucous membranes dry - Respiratory Respiratory exam: Present: rales, rhonchi - Cardiovascular Cardiovascular exam: Present: RRR. Absent: tachycardia - GI/Abdominal GI/Abdominal exam: Present: soft - Extremities Exam Extremities exam: Present: warm. Absent: tenderness - Neurological Exam Neurological exam: Present: alert, oriented X3 - Skin Skin exam: Present: warm. Absent: rash - VTE Documentation of Mechanical Device: Intermittent pneumatic compression device
== END 2017-04-17 21:30 | disposition other institution (70) | DRG 326 ==
LOC: 2ANU → ICNU 18:39 → SUATTDRO 18:47 → 2NENU 04-02 21:42
PROVIDERS: ADMIT Pediatrics; ATTEND Internal Medicine

== ENCOUNTER 2017-05-27 13:57 | Inpatient (IN) ==
[2017-05-27] MEDS ORDERED: Ipratropium/Albuterol Neb 3 ML IH ONE (14:16)
[2017-05-27 14:58] LABS: Hemoglobin 9.8 g/dL (11.5-15.4)
[2017-05-27 15:00] LABS: Basophils # 0.1 K/mcL (0.0-0.2); Basophils % 0.7 %; Eosinophils % 0.4 %; Hematocrit 33.2 % (35.3-44.9); Immature Granulocytes % 0.7 % (0-4); Lymphocytes # 1.2 K/mcL (0.6-4.6); Lymphocytes % 12.7 %; Mean Corpuscular HGB Conc 29.5 g/dL (31.6-35.5); Mean Corpuscular Volume 84.7 fL (83.0-100.0); Mean Platelet Volume 9.3 fL (9.4-12.4); Monocytes % 10.6 %; Neutrophils # 6.9 K/mcL (1.6-8.9); Platelet Count 321 K/mcL (140-400); Red Blood Count 3.92 M/mcL (3.82-4.97); Red Cell Distribution Width 17.6 % (11.5-14.5); Segmented Neutrophils % 74.9 %
[2017-05-27 15:08] LABS: INR 1.1; Prothrombin Time 11.9 Seconds (9.4-12.1)
[2017-05-27] MEDS ORDERED: Furosemide 20 MG/2 ML VIAL IVP ONE (15:09)
[2017-05-27] MEDS ORDERED: Piperacillin/Tazobactam 3.375 GM in 0.9 % Sodium Chloride Mini Bag 100 ML IVPB ONE (15:09)
[2017-05-27 15:11] LABS: Activated Partial Thrombo Time 25.7 Seconds (26.0-36.0)
[2017-05-27 15:20] LABS: Anisocytosis 1+ (Not Present); Hypochromasia Present (Not Present); Polychromasia 1+ (Not Present)
[2017-05-27 15:25] LABS: Alanine Aminotransferase 26 Units/L (7-52); Albumin 3.4 g/dL (3.5-5.7); Albumin/Globulin Ratio 0.7 (1.1-2.2); Alkaline Phosphatase 110 Units/L (34-104); Aspartate Amino Transferase 36 Units/L (13-39); BUN/Creatinine Ratio 41 (6-26); Bilirubin,Direct 0.3 mg/dL (0.0-0.2); Bilirubin,Total 0.3 mg/dL (0.3-1.0); Blood Urea Nitrogen 31 mg/dL (8-23); Calcium 9.3 mg/dL (8.6-10.3); Carbon Dioxide 27 mEq/L (23-29); Chloride 100 mEq/L (98-107); Globulin 4.6 g/dL (2.4-3.5); Glucose 71 mg/dL (70-105); Osmolality,Calculated 289 (280-300); Potassium 3.8 mEq/L (3.5-5.1); Sodium 137 mEq/L (136-145); eGFR For African Americans > 60 (> 60); eGFR For Non-African Americans > 60 (> 60)
[2017-05-27 15:30] LABS: Troponin I 0.04 ng/mL (< 0.04)
[2017-05-27] MEDS ORDERED: Aspirin 81 MG TAB.CHEW PO ONE (15:40)
[2017-05-27 16:23] LABS: Bilirubin,Urine Negative (Negative); Blood,Urine Negative (Negative); Clarity,Urine Clear (Clear); Color,Urine Yellow (Yellow); Glucose,Urine (UA) Normal (Normal); Ketones,Urine Negative (Negative); Leukocyte Esterase,Urine Negative (Negative); Nitrite,Urine Negative (Negative); Protein,Urine 30 mg/dL (Neg-Trace); Specific Gravity,Urine 1.023 (1.010-1.025); Urobilinogen,Urine Normal (Normal)
[2017-05-27 16:26] LABS: Bacteria,Urine None Seen per hpf (None-Few); Hyaline Casts,Urine Few per lpf (None-Few); RBC,Urine 0-3 per hpf (0-3); Squamous Epithelial Cell,Urine Moderate per lpf (None-Few); WBC,Urine 0-3 per hpf (0-3)
--- NOTE | 2017-05-27 17:46 | Emergency Department Note ---
Disposition Clinical Impression: Acute respiratory distress, Sinus tachycardia, Subtherapeutic international normalized ratio (INR), Elevated troponin Aspiration pneumonia Qualifiers: Aspiration pneumonia type: unspecified Laterality: left Lung location: lower lobe of lung Qualified Code(s): J69.0 - Pneumonitis due to inhalation of food and vomit Disposition: Admitted As Inpatient Condition: Fair Referrals: Memo Cody MD [Primary Care Provider] - Forms: ED Satisfaction Letter Time of Disposition: 18:01 General Adult HPI - General Chief complaint: ED Upper Respiratory Infection Stated complaint: KIM,coughing Time Seen by Provider: 05/27/17 13:59 Source: patient, family, EMS Mode of arrival: EMS Limitations: no limitations Nursing Notes Reviewed: Yes Vital Signs Reviewed: Yes - History of Present Illness HPI Narrative: 81-year-old female with significant past medical history of atrial fibrillation and DVT. With a recent hospitalization due to aspiration pneumonia presenting to the emergency Department chief complaint shortness of breath. Patient states for the past 5 days she has been having increased dyspnea and productive cough. Patient denies chest pain, dizziness, nausea or vomiting. She states she has been given cough syrup and Claritin for her cough but no antibiotics are imaging. Patient is currently a resident at [facility], a assisted living facility. Pain Scale: 0 - Related Data Home Medications Medication Instructions Recorded Confirmed Levothyroxine [Synthroid] 25 mcg GTUBE QAM 02/22/17 05/27/17 Aspirin [Lo-Dose Aspirin EC] 81 mg GTUBE DAILY 03/25/17 05/27/17 Multivitamin [One Daily 1 tab GTUBE DAILY 03/25/17 05/27/17 Multivitamin] Acetaminophen [Tylenol] 650 mg GTUBE Q4H PRN 05/27/17 05/27/17 B Complex W-C No.20/Folic Acid 1 mg GTUBE DAILY 05/27/17 05/27/17 [Nephrocaps Softgel] Buspirone HCl [Buspar] 5 mg PO AD 05/27/17 05/27/17 Gabapentin [Neurontin] 100 mg GTUBE TID 05/27/17 05/27/17 GuaiFENesin/Dextromethorphan 10 ml PO Q4H PRN 05/27/17 05/27/17 [Tussin Dm Syrup] Ipratropium/Albuterol Neb [Duoneb] 3 ml IH Q4H PRN 05/27/17 05/27/17 Loratadine [Claritin] 10 mg PO DAILY 05/27/17 05/27/17 Lovastatin 40 mg GTUBE HS 05/27/17 05/27/17 Melatonin 9 mg GTUBE HS PRN 05/27/17 05/27/17 Methyl Salicylate/Menthol [Muscle 1 appl TP Q6H PRN 05/27/17 05/27/17 Rub Cream] Miconazole w/zinc oxide&karaya 1 appl TP TID 05/27/17 05/27/17 [Antifungal Extra Thick] Nystatin POWDER [Nystop] 1 appl TP BID PRN 05/27/17 05/27/17 Pantoprazole Sodium [Protonix] 40 mg PO BID 05/27/17 05/27/17 Polyethylene Glycol 3350 [MiraLAX] 17 gm GTUBE BID 05/27/17 05/27/17 Sertraline [Zoloft] 50 mg PO DAILY 05/27/17 05/27/17 Warfarin [Coumadin] 0.5 mg GTUBE MOWEFR 05/27/17 05/27/17 Warfarin [Coumadin] 1 mg GTUBE SUTUTH 05/27/17 05/27/17 Previous Rx's Medication Instructions Recorded Bisacodyl [Dulcolax] 10 mg RC DAILY #30 supp.rect 04/13/17 Allergies Allergy/AdvReac Type Severity Reaction Status Date / Time rosuvastatin [From Crestor] Allergy Hives Verified 03/24/17 20:46 All systems ED: reviewed and negative except as stated. Respiratory: Reports: cough, dyspnea Past Medical History - Past Medical History Attestation: Yes The following information was validated with the patient. Medical history: Reports: arthritis, coronary artery disease, GERD, hyperlipidemia, hypertension, myocardial infarction, thyroid disease, other Surgical history: Reports: DARLENE/BSO, other (Left ankle surgery) Psychiatric history: Reports: anxiety, depression - Social History Smoking Status: Never smoker Smokeless Tobacco Status: No Alcohol use: Reports: none Drug use: Reports: none Physical Exam - General Limitations: no limitations General appearance: alert, in no apparent distress - Head Head exam: atraumatic, normocephalic, normal inspection - Eye Eye exam: Present: normal appearance. Absent: scleral icterus, conjunctival injection - ENT ENT exam: normal exam, mucous membranes moist - Neck Neck exam: Present: normal inspection, full ROM. Absent: tenderness, meningismus - Chest Chest inspection: Present: normal inspection, symmetric chest wall rise. Absent : tenderness, rash - Respiratory Respiratory exam: Present: other (Diffuse rhonchi on examination) - Cardiovascular Cardiovascular exam: Present: tachycardia - Abdominal Exam Abdominal exam: Present: soft, Non-Tender. Absent: distention, guarding, rebound - Extremities Exam Extremities exam: Present: full ROM - Neurological Exam Neurological exam: Present: alert, oriented X3 - Psychiatric Psychiatric exam: Present: normal affect, normal mood - Skin Skin exam: Present: warm, dry Course Course Narrative: 81-year-old female presenting to the emergency Department chief complaint of dyspnea. Worsening over the past 5 days. Patient has significant history of aspiration pneumonia. Patient recently discharged and sent to [facility] assisted living facility. Upon arrival patient is in mild respiratory distress. Hypoxic on nasal cannula. Patient has diffuse rhonchi on examination. Patient placed on BiPAP. Basic laboratory analysis will be completed along with chest x-ray. Concern for pneumonia versus pulmonary edema versus PE at this time. Patient is alert and oriented 3 in the room. On BiPAP no longer hypoxic. Tachycardic in the room. Other vital signs stable. Disposition will likely be admission but pending laboratory analysis and imaging. - Reevaluation(s) Reevaluation #1: Patient's troponin elevated at 0.04. All other labs unchanged from previous. Patient's chest x-ray shows possible left lower lobe pneumonia. Due to patient' s tachycardia and initial hypoxia once patient was stabilized decision was made to complete a CTA. CTA was completed and showed 1. No findings of pulmonary embolism. 2. 18 percent increased findings of bronchiolitis most severe in the right upper and right lower lobes. Given fluid throughout the esophagus, the appearance is suspicious for aspiration bronchiolitis. Infectious bronchiolitis could appear similar. 3. Minimal to mild bronchial wall thickening with patchy bronchial secretions most prominent in the right upper and right lower lobes potentially to bronchitis or aspiration. 4. Small left and trace right pleural effusions. 5. 0.8 cm x 0.5 cm splenic artery aneurysm at the splenic hilum. Recommend follow-up imaging in 1 year as below. We started the patient on vancomycin and Zosyn. Patient was also given Lasix. Patient responded well to BiPAP. Stable at this time. She is alert and oriented 3 in the room with stable vital signs. I spoke with the hospitalist on-call Dr. Forrest who agrees to accept the patient at this time. Patient's INR subtherapeutic. Due to her previous DVTs we will start the patient on ACS dose heparin. Patient agrees with this plan. I also spoke with the travel journalist on- call Dr. wesley who agrees to start the patient on ACS dose heparin at this time due to her subtherapeutic INR. Vital Signs O2 Sat by Pulse Oximetry 91 05/27/17 14:18 Temperature 98.3 F 05/27/17 14:32 Pulse Rate 117 05/27/17 17:40 Respiratory Rate 22 05/27/17 17:40 Blood Pressure 127/78 05/27/17 17:40 O2 Sat by Pulse Oximetry 98 05/27/17 17:40 Oxygen Delivery Oxygen Delivery Bipap Medical Decision Making - Medical Records Medical records reviewed: Yes I reviewed the patient's medical records. - Lab Data Lab results reviewed: Yes I reviewed the patient's lab results. Result diagrams: 05/27/17 14:41 05/27/17 14:41 Lab Results 05/27/17 05/27/17 05/27/17 Range/Units 14:41 14:41 14:41 WBC 9.2 (4.3-11.1) K/mcL RBC 3.92 (3.82-4.97) M/mcL Hgb 9.8 L (11.5-15.4) g/dL Hct 33.2 L (35.3-44.9) % MCV 84.7 (83.0-100.0) fL MCH 25.0 L (28.0-33.3) pg MCHC 29.5 L (31.6-35.5) g/dL RDW 17.6 H (11.5-14.5) % Plt Count 321 (140-400) K/mcL MPV 9.3 L (9.4-12.4) fL Immature Gran % 0.7 (0-4) % Seg Neutrophils % 74.9 % Lymphocytes % 12.7 % Monocytes % 10.6 % Eosinophils % 0.4 % Basophils % 0.7 % Neutrophils # 6.9 (1.6-8.9) K/mcL Lymphocytes # 1.2 (0.6-4.6) K/mcL Monocytes # 1.0 (0.0-1.3) K/mcL Eosinophils # 0.0 (0.0-0.6) K/mcL Basophils # 0.1 (0.0-0.2) K/mcL Polychromasia 1+ A (Not Present) Hypochromasia Present A (Not Present) Anisocytosis 1+ A (Not Present) PT (9.4-12.1) Seconds INR APTT (26.0-36.0) Seconds Sodium 137 (136-145) mEq/L Potassium 3.8 (3.5-5.1) mEq/L Chloride 100 (98-107) mEq/L Carbon Dioxide 27 (23-29) mEq/L BUN 31 H (8-23) mg/dL Creatinine 0.76 (0.60-1.20) mg/dL Est GFR ( Amer) > 60 (> 60) Est GFR (Non-Af Amer) > 60 (> 60) BUN/Creatinine Ratio 41 H (6-26) Glucose 71 (70-105) mg/dL Calculated Osmolality 289 (280-300) Lactic Acid 1.5 (0.5-2.2) mmol/L Calcium 9.3 (8.6-10.3) mg/dL Total Bilirubin 0.3 (0.3-1.0) mg/dL Direct Bilirubin 0.3 H (0.0-0.2) mg/dL Indirect Bilirubin 0.0 (0.0-1.2) mg/dL AST 36 (13-39) Units/L ALT 26 (7-52) Units/L Alkaline Phosphatase 110 H (34-104) Units/L Troponin I 0.04 H* (< 0.04) ng/mL B-Natriuretic Peptide (Less than 100) pg/mL Serum Total Protein 8.0 (6.4-8.9) g/dL Albumin 3.4 L (3.5-5.7) g/dL Globulin 4.6 H (2.4-3.5) g/dL Albumin/Globulin Ratio 0.7 L (1.1-2.2) Urine Color (Yellow) Urine Clarity (Clear) Urine pH (5.0-8.0) pH Units Ur Specific [place] (1.010-1.025) Urine Protein (Neg-Trace) mg/dL Urine Glucose (UA) (Normal) mg/dL Urine Ketones (Negative) mg/dL Urine Blood (Negative) Urine Nitrite (Negative) Urine Bilirubin (Negative) Urine Urobilinogen (Normal) mg/dL Ur Leukocyte Esterase (Negative) Urine Microscopic RBC (0-3) per hpf Urine Microscopic WBC (0-3) per hpf Ur Squamous Epith Cells (None-Few) per lpf Urine Bacteria (None-Few) per hpf Hyaline Casts (None-Few) per lpf Ur Culture Indicated? (NO) 05/27/17 05/27/17 05/27/17 Range/Units 14:41 15:18 16:03 WBC (4.3-11.1) K/mcL RBC (3.82-4.97) M/mcL Hgb (11.5-15.4) g/dL Hct (35.3-44.9) % MCV (83.0-100.0) fL MCH (28.0-33.3) pg MCHC (31.6-35.5) g/dL RDW (11.5-14.5) % Plt Count (140-400) K/mcL MPV (9.4-12.4) fL Immature Gran % (0-4) % Seg Neutrophils % % Lymphocytes % % Monocytes % % Eosinophils % % Basophils % % Neutrophils # (1.6-8.9) K/mcL Lymphocytes # (0.6-4.6) K/mcL Monocytes # (0.0-1.3) K/mcL Eosinophils # (0.0-0.6) K/mcL Basophils # (0.0-0.2) K/mcL Polychromasia (Not Present) Hypochromasia (Not Present) Anisocytosis (Not Present) PT 11.9 (9.4-12.1) Seconds INR 1.1 APTT 25.7 L (26.0-36.0) Seconds Sodium (136-145) mEq/L Potassium (3.5-5.1) mEq/L Chloride (98-107) mEq/L Carbon Dioxide (23-29) mEq/L BUN (8-23) mg/dL Creatinine (0.60-1.20) mg/dL Est GFR ( Amer) (> 60) Est GFR (Non-Af Amer) (> 60) BUN/Creatinine Ratio (6-26) Glucose (70-105) mg/dL Calculated Osmolality (280-300) Lactic Acid (0.5-2.2) mmol/L Calcium (8.6-10.3) mg/dL Total Bilirubin (0.3-1.0) mg/dL Direct Bilirubin (0.0-0.2) mg/dL Indirect Bilirubin (0.0-1.2) mg/dL AST (13-39) Units/L ALT (7-52) Units/L Alkaline Phosphatase (34-104) Units/L Troponin I (< 0.04) ng/mL B-Natriuretic Peptide 59 (Less than 100) pg/mL Serum Total Protein (6.4-8.9) g/dL Albumin (3.5-5.7) g/dL Globulin (2.4-3.5) g/dL Albumin/Globulin Ratio (1.1-2.2) Urine Color Yellow (Yellow) Urine Clarity Clear (Clear) Urine pH 6.0 (5.0-8.0) pH Units Ur Specific [place] 1.023 (1.010-1.025) Urine Protein 30 H (Neg-Trace) mg/dL Urine Glucose (UA) Normal (Normal) mg/dL Urine Ketones Negative (Negative) mg/dL Urine Blood Negative (Negative) Urine Nitrite Negative (Negative) Urine Bilirubin Negative (Negative) Urine Urobilinogen Normal (Normal) mg/dL Ur Leukocyte Esterase Negative (Negative) Urine Microscopic RBC 0-3 (0-3) per hpf Urine Microscopic WBC 0-3 (0-3) per hpf Ur Squamous Epith Cells Moderate H (None-Few) per lpf Urine Bacteria None Seen (None-Few) per hpf Hyaline Casts Few (None-Few) per lpf Ur Culture Indicated? NO (NO) - Radiology Data Radiology results reviewed: Yes I reviewed the patient's radiology results. Chest X-Ray 05/27/17 14:20 IMPRESSION: 1. Left lower lobe airspace disease could represent pneumonia 2. Persistent mild pulmonary vascular congestion and edema D/ / Didier Saez MD / Didier Saez MD Interpreting Provider: Didier Saez MD Chest CTA 05/27/17 15:45 IMPRESSION: 1. No findings of pulmonary embolism. 2. 18 percent increased findings of bronchiolitis most severe in the right upper and right lower lobes. Given fluid throughout the esophagus, the appearance is suspicious for aspiration bronchiolitis. Infectious bronchiolitis could appear similar. 3. Minimal to mild bronchial wall thickening with patchy bronchial secretions most prominent in the right upper and right lower lobes potentially to bronchitis or aspiration. 4. Small left and trace right pleural effusions. 5. 0.8 cm x 0.5 cm splenic artery aneurysm at the splenic hilum. Recommend follow-up imaging in 1 year as below. RECOMMENDATIONS: Managing Incidental Vascular Findings on CT and MRI Splenic artery aneurysm, <2 cm: Follow-up imaging every 1 year Reference: Mahesh et al. Managing incidental findings on abdominal and pelvic CT and MRI, part 2: white paper of the ACR Incidental Findings Committee II on vascular findings. J Am Niki Radiol 2013;10:789-794. D/ / Didier Estevez MD / Didier Estevez MD Interpreting Provider: Didier Estevez MD - EKG Data EKG #1 EKG attestation: Yes I reviewed and interpreted this EKG. EKG results narrative: Sinus tachycardia. Nonspecific T wave abnormality. 134 bpm. NJ interval 152, QRS 77, QTC 381. No signs of acute ST segment elevation or ischemia. EKG #2 EKG attestation: Yes I reviewed and interpreted this EKG. EKG results narrative: Sinus tachycardia. 133 bpm. Nonspecific T wave abnormality. NJ interval 154, QRS 78, QTc 382. No signs of acute ST segment elevation or ischemia. Critical Care Time Critical Care Time: Yes Total Critical Care Time: 60 Attestation: The high probability of a clinically significant, sudden or life threatening deterioration of the [resp] system(s) required my full and direct attention, intervention and personal management. The aggregate critical care time was [60] minutes. This time is in addition to time spent performing reported procedures but includes the following: [x] Data Review and interpretation [x] Patient assessment and monitoring of vital signs [x] Documentation [x] Medication orders and management Attestation Statement - Attestation Attestation: I examined this patient and my medical decision-making was reviewed with the Resident Physician, Dr. Morris. I agree with the documented findings, disposition and treatment plan as described except to the extent set forth below. Patient is an 81-year-old white female who arrives in respiratory distress brought by her daughter for evaluation of gradually worsening shortness of breath productive cough and hypoxia. Patient was recently hospitalized back in April and had an arduous course involving chemical pneumonitis due to aspiration of Gastrografin during GI studies. Patient also during that hospitalization had new onset A. fib with RVR and developed an upper extremity DVT and was placed on Coumadin. Patient arrives tachycardic, hyoxic with increased work of breathing on arrival. Patient denies any vomiting, no chest pain pressure or heaviness, no palpitations, no abdominal pain no posttussive emesis. I agree with patient's physical exam findings as documented. Patient initially was placed on cardiac monitoring continuous pulse ox supplemental oxygen by nasal cannula breathing treatments were initiated lab evaluation was initiated and EKG was obtained. EKG shows a sinus tachycardia at 130 bpm with no acute ST-T wave changes. Sepsis protocol was initiated. Patient's chest x-ray initially was concerning for lower lobe infiltrate for possible pneumonia but with patient's persistent tachycardia history of DVT and subtherapeutic on her INR we were concerned about possible PE. Patient was sent for CTA of the chest which is unremarkable for emboli but does show right- sided pulmonary changes concerning for aspiration pneumonia. Patient's with worsening findings compared to imaging during her hospitalization recently. IV antibiotics were initiated for pneumonia, cultures pending. Patient was started on heparin protocol for subtherapeutic INR. Patient had been converted over to BiPAP and clinically is doing much better, O2 sats are 100% with decreased work of breathing and improved aeration of her lungs. Patient also has an elevated troponin and mild pulmonary congestion on initial chest film. Patient was given a dose of Lasix. We did touch base and speak with cardiology , Dr. Camargo was flight surgeon who was consulate to see the patient for elevated troponin in route pulmonary edema. Patient was admitted to the hospitalist service for further evaluation and management and is clinically improved at this time.
[2017-05-27] MEDS ORDERED: *HR* Heparin 5,000 UNIT/ML VIAL IVP ONE (17:53)
[2017-05-27] MEDS ORDERED: *HR* Heparin 5,000 UNIT/ML VIAL IVP PRN ×2 (17:53)
[2017-05-27] MEDS ORDERED: Heparin 25,000 UNIT/500 ML D5W 25,000 UNIT/500 ML BAG IVC SCH (18:00)
--- NOTE | 2017-05-27 19:46 | Internal Med History&Physical ---
Date of Encounter: 05/27/17 Time of Encounter: 19:43 Assessment and Plan (1) CAD (coronary artery disease) Current visit: Yes Status: Acute No chest pain and mildly elevated troponin Qualifiers: Coronary Disease-Associated Artery/Lesion type: [place] artery [place] vs. transplanted heart: [place] heart Associated angina: without angina Qualified Code(s): I25.10 - Atherosclerotic heart disease of [place] coronary artery without angina pectoris (2) Aspiration pneumonia Current visit: Yes Status: Acute Patient presents with 5 days of cough productive of thick yellow sputum CTA suggestive of aspiration broncholitis s we will continue on vancomycin and Zosyn and consult pulmonology for follow-up Qualifiers: Aspiration pneumonia type: unspecified Laterality: left Lung location: lower lobe of lung Qualified Code(s): J69.0 - Pneumonitis due to inhalation of food and vomit (3) Elevated troponin Current visit: Yes Status: Acute no chest pain will trend (4) Hypertension Current visit: No Status: Chronic Chronic and well controlled Qualifiers: Hypertension type: essential hypertension Qualified Code(s): I10 - Essential (primary) hypertension Internal Medicine - H&P: HPI Chief complaint: sob and productive cough Admitted From: Emergency Dept Plans for Post Hospital Care: Home History of present illness: Ms. Leach is a 81 year old female Patient with history of hypertension, atrial fibrillation, recent aspiration pneumonia admission, high cholesterol, CAD, and anemia, history of DVT. Recent echo showed EF 65-70%. Patient was brought in by family due to increased shortness of breath about 5 days cough productive of thick yellow sputum denies any fever or chills the emergency room patient was found to have hypoxemia place on BiPAP CTA of the chest shows aspiration bronchiolitis patient was started on vancomycin and Zosyn in emergency room troponin mildly elevated at 0.04 she is not having any active chest pain Past Med Surg Social Fam HX - Past Medical History Medical history: arthritis, coronary artery disease, GERD, hyperlipidemia, hypertension, myocardial infarction, thyroid disease, other Psychiatric history: anxiety, depression - Past Surgical History Surgical History: DARLENE/BSO, other (Left ankle surgery) - Social History Smoking Status: Never smoker Smokeless Tobacco Status: No Alcohol use: none Drug use: none - Family History Father Living Status: Mother Living Status: Internal Medicine - H&P: Meds Levothyroxine [Synthroid] 25 mcg GTUBE QAM 02/22/17 [History] Aspirin [Lo-Dose Aspirin EC] 81 mg GTUBE DAILY 03/25/17 [History] Multivitamin [One Daily Multivitamin] 1 tab GTUBE DAILY 03/25/17 [History] Bisacodyl [Dulcolax] 10 mg RC DAILY #30 supp.rect 04/13/17 [Rx] Acetaminophen [Tylenol] 650 mg GTUBE Q4H PRN 05/27/17 [History] B Complex W-C No.20/Folic Acid [Nephrocaps Softgel] 1 mg GTUBE DAILY 05/27/17 [ History] Buspirone HCl [Buspar] 5 mg PO AD 05/27/17 [History] Gabapentin [Neurontin] 100 mg GTUBE TID 05/27/17 [History] GuaiFENesin/Dextromethorphan [Tussin Dm Syrup] 10 ml PO Q4H PRN 05/27/17 [ History] Ipratropium/Albuterol Neb [Duoneb] 3 ml IH Q4H PRN 05/27/17 [History] Loratadine [Claritin] 10 mg PO DAILY 05/27/17 [History] Lovastatin 40 mg GTUBE HS 05/27/17 [History] Melatonin 9 mg GTUBE HS PRN 05/27/17 [History] Methyl Salicylate/Menthol [Muscle Rub Cream] 1 appl TP Q6H PRN 05/27/17 [History ] Miconazole w/zinc oxide&karaya [Antifungal Extra Thick] 1 appl TP TID 05/27/17 [ History] Nystatin POWDER [Nystop] 1 appl TP BID PRN 05/27/17 [History] Pantoprazole Sodium [Protonix] 40 mg PO BID 05/27/17 [History] Polyethylene Glycol 3350 [MiraLAX] 17 gm GTUBE BID 05/27/17 [History] Sertraline [Zoloft] 50 mg PO DAILY 05/27/17 [History] Warfarin [Coumadin] 0.5 mg GTUBE MOWEFR 05/27/17 [History] Warfarin [Coumadin] 1 mg GTUBE SUTUTH 05/27/17 [History] 3 Allergy/AdvReac Type Severity Reaction Status Date / Time rosuvastatin [From Crestor] Allergy Hives Verified 03/24/17 20:46 All Systems PM: A 10-system review of systems was performed and is negative for pertinent findings except as documented above in the HPI. - Constitutional Vitals: Temp Pulse Resp BP Pulse Ox 98.3 F 117 22 127/78 98 05/27/17 14:32 05/27/17 17:40 05/27/17 17:40 05/27/17 17:40 05/27/17 17:40 General appearance: Present: mild distress - Eye Eye exam: Present: PERRL, conjuntiva pink, sclera anicteric Pupils: Present: PERRL - Neck Neck exam general surgery: Present: supple, trachea midline. Absent: lymphadenopathy - Respiratory Respiratory exam: Present: prolonged expiratory phase, rhonchi - Cardiovascular Cardiovascular exam: Present: RRR, +S1, +S2. Absent: diastolic murmur, gallop, rubs, systolic murmur - Extremities Exam Extremities exam: Present: warm, radial pulses palpable and symmetrical. Absent : calf tenderness, cyanotic, pedal edema Internal Med - H&P Results - Labs CBC & Chem 7: 05/27/17 14:41 05/27/17 14:41 Labs: Short CBC 05/27/17 Range/Units 14:41 WBC 9.2 (4.3-11.1) K/mcL Hgb 9.8 L (11.5-15.4) g/dL Hct 33.2 L (35.3-44.9) % Plt Count 321 (140-400) K/mcL Neutrophils # 6.9 (1.6-8.9) K/mcL BMP 05/27/17 14:41 Sodium 137 Potassium 3.8 Chloride 100 Carbon Dioxide 27 BUN 31 H Creatinine 0.76 Glucose 71 Calcium 9.3 Cardiac Enzymes 05/27/17 Range/Units 14:41 Troponin I 0.04 H* (< 0.04) ng/mL Liver Function 05/27/17 Range/Units 14:41 Total Bilirubin 0.3 (0.3-1.0) mg/dL Direct Bilirubin 0.3 H (0.0-0.2) mg/dL AST 36 (13-39) Units/L ALT 26 (7-52) Units/L Alkaline Phosphatase 110 H (34-104) Units/L Albumin 3.4 L (3.5-5.7) g/dL Urine 05/27/17 Range/Units 16:03 Urine Color Yellow (Yellow) Urine Clarity Clear (Clear) Urine pH 6.0 (5.0-8.0) pH Units Ur Specific [place] 1.023 (1.010-1.025) Urine Protein 30 H (Neg-Trace) mg/dL Urine Glucose (UA) Normal (Normal) mg/dL - Impressions ITS Impressions Chest X-Ray 05/27/17 14:20 IMPRESSION: 1. Left lower lobe airspace disease could represent pneumonia 2. Persistent mild pulmonary vascular congestion and edema D/ / Didier Saez MD / Didier Saez MD Interpreting Provider: Didier Saez MD Chest CTA 05/27/17 15:45 IMPRESSION: 1. No findings of pulmonary embolism. 2. 18 percent increased findings of bronchiolitis most severe in the right upper and right lower lobes. Given fluid throughout the esophagus, the appearance is suspicious for aspiration bronchiolitis. Infectious bronchiolitis could appear similar. 3. Minimal to mild bronchial wall thickening with patchy bronchial secretions most prominent in the right upper and right lower lobes potentially to bronchitis or aspiration. 4. Small left and trace right pleural effusions. 5. 0.8 cm x 0.5 cm splenic artery aneurysm at the splenic hilum. Recommend follow-up imaging in 1 year as below. RECOMMENDATIONS: Managing Incidental Vascular Findings on CT and MRI Splenic artery aneurysm, <2 cm: Follow-up imaging every 1 year Reference: Mahesh et al. Managing incidental findings on abdominal and pelvic CT and MRI, part 2: white paper of the ACR Incidental Findings Committee II on vascular findings. J Am Niki Radiol 2013;10:789-794. D/ / Didier Estevez MD / Didier Estevez MD Interpreting Provider: Didier Estevez MD
[2017-05-27] MEDS ORDERED: Naloxone 0.4 MG/ML INJ IVP PRN (19:52)
[2017-05-27] MEDS ORDERED: traMADol 50 MG TABLET PO PRN (19:52)
[2017-05-27] MEDS ORDERED: Acetaminophen 325 MG TABLET PO PRN (19:52)
[2017-05-27] MEDS ORDERED: Methyl Salicylate/Menthol 28 GM TUBE TP PRN (19:54)
[2017-05-27] MEDS ORDERED: Nystatin POWDER 30 GM BOTTLE TP PRN (19:54)
[2017-05-27] MEDS ORDERED: Melatonin 3 MG TABLET GTUBE PRN (19:54)
[2017-05-27] MEDS ORDERED: Ipratropium/Albuterol Neb 3 ML IH PRN (19:59)
[2017-05-27] MEDS ORDERED: 0.9 % Sodium Chloride 1,000 ML IVC SCH (20:00)
[2017-05-27] MEDS ORDERED: Ipratropium/Albuterol Neb 3 ML ONE (20:12)
[2017-05-27] MEDS: Ipratropium/Albuterol Neb 3 ML IH SCH ×2 (20:24→23:13)
[2017-05-27] MEDS ORDERED: Gabapentin 100 MG CAPSULE GTUBE SCH (21:00)
[2017-05-28] MEDS: Piperacillin/Tazobactam 3.375 GM in 0.9 % Sodium Chloride Mini Bag 100 ML IVPB SCH ×3 (02:21→18:01)
[2017-05-28] MEDS: Ipratropium/Albuterol Neb 3 ML IH SCH ×5 (04:21→19:41)
[2017-05-28 06:38] LABS: Magnesium 1.8 mg/dL (1.6-2.6)
[2017-05-28 06:39] LABS: Mean Corpuscular HGB Conc 28.7 g/dL (31.6-35.5)
[2017-05-28 06:40] LABS: Hematocrit 28.9 % (35.3-44.9); Hemoglobin 8.3 g/dL (11.5-15.4); Mean Corpuscular Hemoglobin 24.6 pg (28.0-33.3); Mean Corpuscular Volume 85.5 fL (83.0-100.0); Mean Platelet Volume 9.4 fL (9.4-12.4); Platelet Count 265 K/mcL (140-400); Red Blood Count 3.38 M/mcL (3.82-4.97); Red Cell Distribution Width 17.6 % (11.5-14.5)
[2017-05-28] MEDS ORDERED: Bisacodyl 10 MG RECTAL SUPPOSITORY RC SCH (09:00)
[2017-05-28] MEDS ORDERED: Loratadine 10 MG TABLET PO SCH (09:00)
[2017-05-28] MEDS ORDERED: Multivitamin Liquid 15 ML UDC GTUBE SCH (09:00)
[2017-05-28 09:01] LABS: BUN/Creatinine Ratio 40 (6-26); Blood Urea Nitrogen 28 mg/dL (8-23); Calcium 8.5 mg/dL (8.6-10.3); Carbon Dioxide 24 mEq/L (23-29); Chloride 104 mEq/L (98-107); Glucose 117 mg/dL (70-105); Osmolality,Calculated 291 (280-300); Potassium 3.3 mEq/L (3.5-5.1); Sodium 137 mEq/L (136-145); eGFR For African Americans > 60 (> 60); eGFR For Non-African Americans > 60 (> 60)
[2017-05-28] MEDS ORDERED: Gabapentin 100 MG CAPSULE PO SCH (10:22)
[2017-05-28] MEDS ORDERED: *HR* Enoxaparin 40 MG/0.4 ML SYRINGE SQ SCH ×2 (13:00→21:00)
--- NOTE | 2017-05-28 14:22 | Internal Med Progress Note ---
<Samuel Stone - Last Filed: 05/28/17 14:19> Date of Encounter: 05/28/17 Time of Encounter: 09:00 - Assessment and plan (1) Aspiration pneumonia Current Visit: Yes Status: Acute Assessment and plan: Patient presents with 5 days of cough productive of thick yellow sputum CTA suggestive of aspiration broncholitiss. We will continue on vancomycin and Zosyn. - PT/OT ordered. - Scheduled duonebs. Albuterol PRN. - Plan to switch to augmentin pending blood culture results. Qualifiers: Aspiration pneumonia type: unspecified Laterality: left Lung location: lower lobe of lung Qualified Code(s): J69.0 - Pneumonitis due to inhalation of food and vomit (2) CAD (coronary artery disease) Current Visit: Yes Status: Acute Assessment and plan: No chest pain and mildly elevated troponin. Qualifiers: Coronary Disease-Associated Artery/Lesion type: [place] artery [place] vs. transplanted heart: [place] heart Associated angina: without angina Qualified Code(s): I25.10 - Atherosclerotic heart disease of [place] coronary artery without angina pectoris (3) Hypertension Current Visit: No Status: Chronic Assessment and plan: Controlled at 133/71. - Qualifiers: Hypertension type: essential hypertension Qualified Code(s): I10 - Essential (primary) hypertension (4) Status post repair of paraesophageal diaphragmatic hernia Current Visit: Yes Status: Acute Assessment and plan: MARILOU drain in situ from prior surgery on 04/17/17. Patient was supposed to have it removed by Surgery later this week. Surgery will come by to evaluate today. No signs of active bleeding, pus, or drainage. (5) Anxiety Current Visit: Yes Status: Acute Assessment and plan: Hydroxazine 50 mg TID PRN. (6) DVT prophylaxis Current Visit: No Status: Acute Assessment and plan: O lovenox 40 mg SQ qd. (7) History of DVT (deep vein thrombosis) Current Visit: Yes Status: Acute Assessment and plan: On coumadin. - Subjective Interval history: When seen today, patient denies any SOB, chest pain, nausea, vomiting, abdominal pain, hematochezia, dysuria, hematuria, fever, or chills. She admits to a dry cough that has been improving since admission. - Constitutional Vitals: Temp Pulse Resp BP Pulse Ox 98.1 F 100 20 123/87 96 05/28/17 10:59 05/28/17 10:59 05/28/17 11:05 05/28/17 10:59 05/28/17 11:05 General appearance: Present: mild distress, A&O X 3, answers questions appropriately Exam: Respiratory distress. - Respiratory Respiratory exam: Present: rhonchi (B/L ). Absent: wheezes, tachypnea - Cardiovascular Cardiovascular exam: Present: RRR, +S1, +S2. Absent: diastolic murmur, gallop, rubs, systolic murmur - Extremities Exam Extremities exam: Present: warm, radial pulses palpable and symmetrical. Absent : calf tenderness, cyanotic, pedal edema Internal Medicine: Result - Labs CBC & Chem 7: 05/28/17 06:09 05/28/17 06:09 Labs: Short CBC 05/28/17 Range/Units 06:09 WBC 6.3 (4.3-11.1) K/mcL Hgb 8.3 L D (11.5-15.4) g/dL Hct 28.9 L (35.3-44.9) % Plt Count 265 (140-400) K/mcL BMP 05/28/17 06:09 Sodium 137 Potassium 3.3 L Chloride 104 Carbon Dioxide 24 BUN 28 H Creatinine 0.70 Glucose 117 H Calcium 8.5 L - ABG Interpretation ABG results: PT/INR, D-dimer PT 11.9 Seconds (9.4-12.1) 05/27/17 14:41 Consult Discharge Plan - Plan Referrals: Memo Cody MD [Primary Care Provider] - <Jan Kyle - Last Filed: 05/28/17 15:01> Date of Encounter: 05/28/17 - Constitutional Vitals: Temp Pulse Resp BP Pulse Ox 98.1 F 100 20 123/87 96 05/28/17 10:59 05/28/17 10:59 05/28/17 11:05 05/28/17 10:59 05/28/17 11:05 Internal Medicine: Result - Labs CBC & Chem 7: 05/28/17 06:09 05/28/17 06:09 Labs: Short CBC 05/28/17 Range/Units 06:09 WBC 6.3 (4.3-11.1) K/mcL Hgb 8.3 L D (11.5-15.4) g/dL Hct 28.9 L (35.3-44.9) % Plt Count 265 (140-400) K/mcL BMP 05/28/17 06:09 Sodium 137 Potassium 3.3 L Chloride 104 Carbon Dioxide 24 BUN 28 H Creatinine 0.70 Glucose 117 H Calcium 8.5 L - ABG Interpretation ABG results: PT/INR, D-dimer PT 11.9 Seconds (9.4-12.1) 05/27/17 14:41 - Attending Attestation I performed an idependent interview and exam of [facility] pt. I agree with the findings, assessment and plan of Dr. Stone, internal medicine internal specialist. She with aspiration pneumonia. Clinically improved. Also has acute hypoxemic history failure secondary to aspiration pneumonia. We will continue with IV antibiotics today but likely change to Augmentin tomorrow to complete a 10 day course. Appreciate speech and language pathology input. With regards to patient's history of recently diagnosed DVT, also history of atrial fibrillation , she was on a heparin drip but we will change her to Lovenox 1 mg/kg subcutaneous twice a day. She has been on Coumadin but we will explore alternative anticoagulant agents with this patient. Patient otherwise is hemodynamically stable. All else as per the note. My input is reflected in this.
--- NOTE | 2017-05-28 14:58 | Event Note ---
Date of Encounter: 05/28/17 Time of Encounter: 14:51 Placed order for SBFT with Barium through the gastric tube. Received phone call from radiology (Dr. Pineda) who requested that this order be changed to gastrografin. I reviewed with Dr. Pineda that the patient is an aspiration risk and therefore surgery would recommend barium through the gastric tube; however radiology did not agree. This REMEDIAL READING TEACHER requested that Dr. Pineda speak directly with Dr. Castillo as the SBFT with barium is Dr. Castillo's preference. After (s)Precious Castillo and Edwin spoke via telephone call, the agreement is that the patient would undergo CT of the abdomen with Isoview pushed through her gastric tube. Order is revised as follows: Please give Isoview through the G-tube (while patient is sitting upright) and patient to remain upright while waiting for exam. Clamp G-tube. Scan patient one hour after giving Isoview
--- NOTE | 2017-05-28 15:04 | Electrocardiograph Report ---
[place] [address] Test Date: 2017-05-27 Pat Name: Anne Marie Leach Department: 104 Room: 2NE16 Gender: F Delivery Rn: ROLF : 1935 Requested By: Ayah Morris Order Number: [id number] Reading MD: Edwardo Collier DO Measurements Intervals [place] Rate: 134 P: 30 AK: 152 QRS: -2 QRSD: 77 T: 58 QT: 302 QTc: 381 Interpretive Statements SINUS TACHYCARDIA NONSPECIFIC T-WAVE ABNORMALITY Electronically Signed On 05-28-2017 15:02:56 EDT by Edwardo Collier DO
--- NOTE | 2017-05-28 15:09 | General Surgery Consult Note ---
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 She followed up with Dr. Castillo and her J-tube removed in the office on 05/25/2017. Pt reports she was having BMs and no difficulty. She denies abd pain, nausea, or vomiting. Her gastric tube is in place. Plan: we will rule out obstruction at the prior jejunostomy tube site. She will undergo a CT of the abdomen with ice overview posted through the gastric tube. If there is no obstruction, she may return to her diet and thickened liquids as per the primary team. Further recommendations pending results of the CT ( please see event note placed today by this FULL STACK SOFTWARE ENGINEER for information regarding the contrast medium. (2) Aspiration pneumonia Status: Acute Patient has a history of aspiration of Gastrografin prior to her gastric volvulus surgery and was admitted by medicine for aspiration today. Noted speech eval/recommendations of nectar thickened liquids. We will give contrast medium through her gastric tube. Patient should remain in an upright position well receiving the contrast medium and for 1 hour afterwards. Management per primary team. Qualifiers: Aspiration pneumonia type: unspecified Laterality: left Lung location: lower lobe of lung Qualified Code(s): J69.0 - Pneumonitis due to inhalation of food and vomit History of Present Illness Consult date: 05/28/17 (Dr. Kayden Castillo) Reason for consult: other Requesting physician: Juan Jose Moreland History of present illness: Ms. 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 Castillo. She has been seen in follow-up in the office and was noted to be doing well. She had her J-tube removed on 2017. She was seen by her PP on 05/28/2017 for complaints of paresthesia and was noted to have wet sounding cough. She was sent to the ER where she was noted to have aspiration pneumonia. She was admitted for further workup. Surgery has been consulted for recommendations regarding a possible obstruction contributing to her aspiration. Anne Marie denies headache, dizziness, chest pain, shortness of breath, nausea, vomiting, changes in bowel habits, constipation, or diarrhea. She reports that she did feel like she was coughing up liquids when she would try to drink them. She denies any abdominal pain or drainage from her surgical sites. Past Med Surg Social Fam HX - Past Medical History Medical history: arthritis, coronary artery disease, DVT, GERD, hyperlipidemia, hypertension, myocardial infarction, thyroid disease, other Psychiatric history: anxiety, depression, panic disorder - Past Surgical History Surgical History: DARLENE/BSO, other - Social History Smoking Status: Never smoker Smokeless Tobacco Status: No Alcohol use: none Drug use: none - Family History Father History Unknown: Yes Living Status: Mother History Unknown: Yes Living Status: Medications and Allergies Levothyroxine [Synthroid] 25 mcg GTUBE QAM 02/22/17 [History] Aspirin [Lo-Dose Aspirin EC] 81 mg GTUBE DAILY 03/25/17 [History] Multivitamin [One Daily Multivitamin] 1 tab GTUBE DAILY 03/25/17 [History] Bisacodyl [Dulcolax] 10 mg RC DAILY #30 supp.rect 04/13/17 [Rx] Acetaminophen [Tylenol] 650 mg GTUBE Q4H PRN 05/27/17 [History] B Complex W-C No.20/Folic Acid [Nephrocaps Softgel] 1 mg GTUBE DAILY 05/27/17 [ History] Buspirone HCl [Buspar] 5 mg PO AD 05/27/17 [History] Gabapentin [Neurontin] 100 mg GTUBE TID 05/27/17 [History] GuaiFENesin/Dextromethorphan [Tussin Dm Syrup] 10 ml PO Q4H PRN 05/27/17 [ History] Ipratropium/Albuterol Neb [Duoneb] 3 ml IH Q4H PRN 05/27/17 [History] Loratadine [Claritin] 10 mg PO DAILY 05/27/17 [History] Lovastatin 40 mg GTUBE HS 05/27/17 [History] Melatonin 9 mg GTUBE HS PRN 05/27/17 [History] Methyl Salicylate/Menthol [Muscle Rub Cream] 1 appl TP Q6H PRN 05/27/17 [History ] Miconazole w/zinc oxide&karaya [Antifungal Extra Thick] 1 appl TP TID 05/27/17 [ History] Nystatin POWDER [Nystop] 1 appl TP BID PRN 05/27/17 [History] Pantoprazole Sodium [Protonix] 40 mg PO BID 05/27/17 [History] Polyethylene Glycol 3350 [MiraLAX] 17 gm GTUBE BID 05/27/17 [History] Sertraline [Zoloft] 50 mg PO DAILY 05/27/17 [History] Amoxicillin/Clavulanate [Augmentin] 875 mg PO BIDWM #8 tablet 05/31/17 [Rx] Apixaban [Eliquis] 5 mg PO BID #60 tablet 05/31/17 [Rx] 3 Allergy/AdvReac Type Severity Reaction Status Date / Time rosuvastatin [From Crestor] Allergy Hives Verified 03/24/17 20:46 Review of Systems All systems PM: reviewed and no additional remarkable complaints except as stated All systems PM: The remainder of the systems were reviewed and are negative General Surgery Exam Initial Vital Signs Pulse Ox 91 05/27/17 14:18 - General physical appearance no distress, other - Respiratory other (Course and wet cough noted.) - Abdomen Abdomen general surgery: Present: soft, non tender, wound (Gastric tube in place and with a small amount of irritation around the tube. There is no leaking noted.) - Integumentary Integumentary general surgery: Present: warm and dry, no abnormal pigmentation - Neurologic Present: normal coordination - Psychiatric Psychiatric general surgery: Present: A&Ox3, appropriate, oriented to person, oriented to place, oriented to time, speech is normal, memory intact Exam Initial Vital Signs Pulse Ox 91 05/27/17 14:18 Results - Labs 05/28/17 06:09 05/28/17 06:09 Abnormal lab results RBC 3.38 M/mcL (3.82-4.97) L 05/28/17 06:09 Hgb 8.3 g/dL (11.5-15.4) L D 05/28/17 06:09 Hct 28.9 % (35.3-44.9) L 05/28/17 06:09 MCH 24.6 pg (28.0-33.3) L 05/28/17 06:09 MCHC 28.7 g/dL (31.6-35.5) L 05/28/17 06:09 RDW 17.6 % (11.5-14.5) H 05/28/17 06:09 Polychromasia 1+ (Not Present) A 05/27/17 14:41 Hypochromasia Present (Not Present) A 05/27/17 14:41 Anisocytosis 1+ (Not Present) A 05/27/17 14:41 APTT 59.6 Seconds (26.0-36.0) H D 05/28/17 06:09 Potassium 3.3 mEq/L (3.5-5.1) L 05/28/17 06:09 BUN 28 mg/dL (8-23) H 05/28/17 06:09 BUN/Creatinine Ratio 40 (6-26) H 05/28/17 06:09 Glucose 117 mg/dL (70-105) H 05/28/17 06:09 Calcium 8.5 mg/dL (8.6-10.3) L 05/28/17 06:09 Direct Bilirubin 0.3 mg/dL (0.0-0.2) H 05/27/17 14:41 Alkaline Phosphatase 110 Units/L (34-104) H 05/27/17 14:41 Troponin I 0.04 ng/mL (< 0.04) H* 05/27/17 14:41 Albumin 3.4 g/dL (3.5-5.7) L 05/27/17 14:41 Globulin 4.6 g/dL (2.4-3.5) H 05/27/17 14:41 Albumin/Globulin Ratio 0.7 (1.1-2.2) L 05/27/17 14:41 Urine Protein 30 mg/dL (Neg-Trace) H 05/27/17 16:03 Ur Squamous Epith Cells Moderate per lpf (None-Few) H 05/27/17 16:03 Diabetes panel 05/28/17 Range/Units 06:09 Sodium 137 (136-145) mEq/L Potassium 3.3 L (3.5-5.1) mEq/L Chloride 104 (98-107) mEq/L Carbon Dioxide 24 (23-29) mEq/L BUN 28 H (8-23) mg/dL Creatinine 0.70 (0.60-1.20) mg/dL Glucose 117 H (70-105) mg/dL Calcium 8.5 L (8.6-10.3) mg/dL Calcium panel 05/28/17 Range/Units 06:09 Calcium 8.5 L (8.6-10.3) mg/dL Pituitary panel 05/28/17 Range/Units 06:09 Sodium 137 (136-145) mEq/L Potassium 3.3 L (3.5-5.1) mEq/L Chloride 104 (98-107) mEq/L Carbon Dioxide 24 (23-29) mEq/L BUN 28 H (8-23) mg/dL Creatinine 0.70 (0.60-1.20) mg/dL Glucose 117 H (70-105) mg/dL Calcium 8.5 L (8.6-10.3) mg/dL Adrenal panel 05/28/17 Range/Units 06:09 Sodium 137 (136-145) mEq/L Potassium 3.3 L (3.5-5.1) mEq/L Chloride 104 (98-107) mEq/L Carbon Dioxide 24 (23-29) mEq/L BUN 28 H (8-23) mg/dL Creatinine 0.70 (0.60-1.20) mg/dL Glucose 117 H (70-105) mg/dL Calcium 8.5 L (8.6-10.3) mg/dL All other labs normal. - Imaging Chest x-ray: report reviewed Consult Discharge Plan - Plan Instructions: Amoxicillin/Clavulanate Potassium (By mouth), Apixaban (By mouth) , Atrial Fibrillation (DC), Acute Respiratory Distress Syndrome (DC), Urinary Tract Infection in Women (DC), Chronic Hypertension (DC), Anxiety (DC), Pneumonia (DC) Referrals: Kayden Castillo MD [Partnered Physician] - 06/08/17 11:45 am Memo Cody MD [Primary Care Provider] - Prescriptions: Amoxicillin/Clavulanate [Augmentin] 875 mg PO BIDWM #8 tablet Apixaban [Eliquis] 5 mg PO BID #60 tablet <Kayden Castillo - Last Filed: 06/01/17 09:27> Date of Encounter: 05/28/17 Review of Systems All systems PM: The remainder of the systems were reviewed and are negative General Surgery Exam Initial Vital Signs Pulse Ox 91 05/27/17 14:18 Exam Initial Vital Signs Pulse Ox 91 05/27/17 14:18 Results - Labs 05/31/17 02:34 05/31/17 02:34 Abnormal lab results RBC 3.51 M/mcL (3.82-4.97) L 05/31/17 02:34 Hgb 8.6 g/dL (11.5-15.4) L 05/31/17 02:34 Hct 29.3 % (35.3-44.9) L 05/31/17 02:34 MCH 24.5 pg (28.0-33.3) L 05/31/17 02:34 MCHC 29.4 g/dL (31.6-35.5) L 05/31/17 02:34 RDW 17.6 % (11.5-14.5) H 05/31/17 02:34 MPV 9.0 fL (9.4-12.4) L 05/31/17 02:34 Nucleated RBCs/100 WBC 0.3 /100 WBC (0) H 05/29/17 04:05 Reactive Lymphocytes Present (Not Present) A 05/31/17 02:34 Polychromasia 1+ (Not Present) A 05/28/17 20:42 Hypochromasia Present (Not Present) A 05/31/17 02:34 Poikilocytosis 1+ (Not Present) A 05/30/17 02:50 Anisocytosis 1+ (Not Present) A 05/30/17 02:50 Macrocytosis Present (Not Present) A 05/28/17 20:42 PT 14.2 Seconds (9.4-12.1) H 05/31/17 02:34 APTT 59.6 Seconds (26.0-36.0) H D 05/28/17 06:09 ABG pCO2 52 mmHg (35-45) H 05/29/17 01:07 ABG HCO3 30 mEq/L (21-27) H 05/29/17 01:07 ABG Total CO2 32 mEq/L (20-26) H 05/29/17 01:07 ABG Base Excess 4 mEq/L (-2 to 3) H 05/29/17 01:07 Sodium 135 mEq/L (136-145) L 05/31/17 02:34 BUN/Creatinine Ratio 32 (6-26) H 05/31/17 02:34 POC Glucose 171 (58-89) H 05/28/17 20:54 Direct Bilirubin 0.3 mg/dL (0.0-0.2) H 05/27/17 14:41 Alkaline Phosphatase 110 Units/L (34-104) H 05/27/17 14:41 Troponin I 0.04 ng/mL (< 0.04) H* 05/27/17 14:41 Albumin 3.4 g/dL (3.5-5.7) L 05/27/17 14:41 Globulin 4.6 g/dL (2.4-3.5) H 05/27/17 14:41 Albumin/Globulin Ratio 0.7 (1.1-2.2) L 05/27/17 14:41 Urine Protein 30 mg/dL (Neg-Trace) H 05/27/17 16:03 Ur Squamous Epith Cells Moderate per lpf (None-Few) H 05/27/17 16:03 CSF Tot Nucleated Cells 6 TNC/mcL (0-5) H 05/28/17 16:41 CSF Glucose 73 mg/dL (40-70) H 05/28/17 16:41 CSF Total Protein 134 mg/dL (15-45) H 05/28/17 16:41 All other labs normal. - Attending Attestation I examined this patient and my medical decision-making was reviewed with the Resident Physician. I agree with the documented findings, disposition and treatment plan as described except to the extent set forth below. The patient is seen and evaluated with resident and discussed with the clinical nurse practitioner. She is a patient is well-known to me. She has recently had jejunostomy tube removed. I am concerned that she may have aspiration associated pneumonia. She does have a gastrostomy tube in place. If the jejunostomy site has formed a relative obstruction and the stomach is not emptying properly this may result in aspiration. I think it is essential to obtain a CAT scan with gastrointestinal contrast to make sure that she does not have a proximal small bowel obstruction at the site of jejunostomy. Kayden Castillo MD FACS
--- NOTE | 2017-05-28 15:13 | Electrocardiograph Report ---
[place] [address] Test Date: 2017-05-27 Pat Name: Anne Marie Leach Department: 104 Room: 2NE16 Gender: F Certified [place] Administrator: ROLF : 1935 Requested By: Jan Kyle Order Number: [id number] Reading MD: Edwardo Collier DO Measurements Intervals [place] Rate: 133 P: 33 CA: 154 QRS: -1 QRSD: 78 T: 58 QT: 304 QTc: 382 Interpretive Statements SINUS TACHYCARDIA NONSPECIFIC T-WAVE ABNORMALITY Electronically Signed On 05-28-2017 15:11:48 EDT by Edwardo Collier DO
[2017-05-28] MEDS ORDERED: Lidocaine 1% 20 ML MDV ID ONE (16:03)
--- NOTE | 2017-05-28 16:42 | Procedure Note ---
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 The patient was placed in the Left lateral decubitus position in a semi- position with help from the nursing staff. The area was cleansed and draped in usual sterile fashion. 1% lidocaine was used anesthetize the surrounding skin area. A 20-gauge 3.5-inch spinal needle was placed in the L4-L5 interspace. Clear cerebral spinal fluid was obtained. Three tubes were filled with 3-4 mL of CSF. These were sent for the usual tests, including 1 tube to be held for further analysis if needed. Attending and resident were present for the entire procedure Estimated Blood Loss: minimal The patient tolerated the procedure well and there were no complications. Was there an executive marketing assistant present: Yes Pin Drafting Machine Tender: Pamela Taylor Estimated blood loss (cc): 1 Specimen: CSF fluid Condition: stable Disposition: floor
[2017-05-28 16:59] LABS: Red Blood Cell,CSF < 0.002 M/mcL
[2017-05-28 17:34] LABS: Glucose,CSF 73 mg/dL (40-70); Total Protein,CSF 134 mg/dL (15-45)
[2017-05-28 17:41] LABS: Appearance,CSF Clear (Clear)
[2017-05-28] MEDS: Gabapentin 100 MG CAPSULE PO SCH ×2 (17:58→21:09)
[2017-05-28] MEDS ORDERED: *HR* Warfarin 3 MG TABLET PO ONE (18:00)
[2017-05-28] MEDS ORDERED: Warfarin perPT PO PRN (18:00)
[2017-05-28] MEDS: Menthol 9.1 MG LOZENGE PO PRN ×2 (18:00→21:31)
[2017-05-28] MEDS: hydrOXYzine pamoate 25 MG CAPSULE PO PRN (18:43)
[2017-05-28] MEDS ORDERED: Nitroglycerin 1 INCH/GM PACKET ONE (19:15)
[2017-05-28] MEDS ORDERED: *HR* Metoprolol 5 MG/5 ML VIAL IVP ONE (19:16)
[2017-05-28] MEDS ORDERED: *HR* Warfarin 1 MG TABLET GTUBE SCH (19:54)
--- NOTE | 2017-05-28 19:56 | Event Note ---
Date of Encounter: 05/28/17 Time of Encounter: 19:10 Responded to rapid response called at around 7:10 PM. Patient increasingly anxious and short of breath. She has been receiving bronchodilators but had not received her last dose. Became increasingly anxious as she felt more short of breath and congested. Patient was very tachycardic and hypertensive. As such gave her DuoNeb's bronchodilators and then 5 mg of IV Lopressor with improvement of her symptoms. Also place her on Nitropaste as she has bilateral rales and coarse breath sounds. Will order chest x-ray. Monitor vital signs closely.
[2017-05-28] MEDS ORDERED: Levalbuterol Neb 0.63 MG/3 ML IH STA (20:25)
[2017-05-28] MEDS ORDERED: methylPREDNISolone 125 MG/2 ML VIAL IVP ONE (20:26)
[2017-05-28] MEDS: Furosemide 40 MG/4 ML VIAL IVP SCH (20:59)
[2017-05-28 21:00] LABS: Basophils # 0.1 K/mcL (0.0-0.2); Basophils % 0.5 %; Eosinophils # 0.2 K/mcL (0.0-0.6); Eosinophils % 2.2 %; Hematocrit 31.6 % (35.3-44.9); Immature Granulocytes % 0.4 % (0-4); Lymphocytes # 2.2 K/mcL (0.6-4.6); Lymphocytes % 19.9 %; Mean Corpuscular HGB Conc 28.5 g/dL (31.6-35.5); Mean Corpuscular Hemoglobin 24.6 pg (28.0-33.3); Mean Corpuscular Volume 86.3 fL (83.0-100.0); Mean Platelet Volume 9.3 fL (9.4-12.4); Monocytes # 0.6 K/mcL (0.0-1.3); Monocytes % 5.1 %; Neutrophils # 7.9 K/mcL (1.6-8.9); Platelet Count 304 K/mcL (140-400); Red Blood Count 3.66 M/mcL (3.82-4.97); Red Cell Distribution Width 17.8 % (11.5-14.5); Segmented Neutrophils % 71.9 %
[2017-05-28] MEDS ORDERED: Melatonin 3 MG TABLET PO PRN ×2 (21:00)
[2017-05-28 21:19] LABS: Anisocytosis 2+ (Not Present)
[2017-05-28 21:20] LABS: Hypochromasia Present (Not Present); Macrocytosis Present (Not Present); Platelet Estimate Normal (Normal); Polychromasia 1+ (Not Present)
[2017-05-28 21:25] LABS: BUN/Creatinine Ratio 35 (6-26); Blood Urea Nitrogen 22 mg/dL (8-23); Calcium 8.4 mg/dL (8.6-10.3); Carbon Dioxide 25 mEq/L (23-29); Chloride 103 mEq/L (98-107); Glucose 179 mg/dL (70-105); Osmolality,Calculated 288 (280-300); Potassium 3.4 mEq/L (3.5-5.1); Sodium 135 mEq/L (136-145); eGFR For African Americans > 60 (> 60); eGFR For Non-African Americans > 60 (> 60)
--- NOTE | 2017-05-28 22:52 | Neurology - Consult Note ---
Date of Encounter: 05/28/17 Time of Encounter: 15:00 Assessment and Plan (1) Paresthesia of bilateral legs Current Visit: Yes Status: Acute Patient has been experiencing recurrent leg paresthesia involving her legs, over the last few days? few weeks, resembling symptoms of [place] syndrome that she had suffered during 2009. However, at present time her weakness and paresthesia can be complicated by her worsening medical conditions , especially her SOB, pneumonia and cardiac dysarrhythmia, with likely nutritional deficiency due to refractory vomiting and possible malabsorption. The findings of absent DTRs would be of less value since this still could be the result of her previous history of Guillain [place] syndrome and her weakness is at least 4/5 bilaterally and i saw no evidence of cranial nerve involvement. therefore i would recommend medical and supportive care at this time but i would suggest that we get CSF study. it is felt that the likelihood of her CSF study showing elevated protein level will be high considering her history of Gul[place]ain [place] syndrome and ongoing medication conditions that can cause encephalopathy that can compromise BBB. The recommendations are; 1. Do CSF routine study, plus gram stain, and culture, this is to at least to rule out carcinomatous meningitis which can give similar clinical picture. 2. If Protein level is high then will still recommend medical treatment at this time, No IVig therapy due to her coexisting medical conditions and IVig can increase cardiac load and aggravate congestive heart failure. Due to the fact that her symptoms have been going for few weeks to few months the benefits of such therapy is unclear and IVig therapy and/or steroid therapy can be considered after medical conditions are stabilzied. 3. Check B12 thiamine, MMA and homocysteine, however, patient is already on B- complex. 4. Patient is to complete EMG/NCV as an outpatient with Dr. Didier Reis after discharge. Total time spent in this case is approximately 70 minutes. I discussed also the case with resident Dr. Syed Taylor and superwised the lumbar puncture procedure and assessment and plan in details. Treatment options also discussed with her two daughters extensively at the bed side History of Present Illness Chief complaint: paresthesia and weakness HPI: Ms. 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 she has been recently admitted to [facility] here for aspiration pneumonia. She was discharged home but over the last 5 days prior to hospital admission she has developed increasing shortness of breath. She also has been experiencing recurrent paresthesia, numbness to her legs below the groin area and increasing weakness to her legs. She has been having nausea and vomiting as a result of that and it was though that she may have developed nutritional deficiency. She states that over the last few months she has been experiencing weakness to her legs probably also her arms but over the last few days she has been experiencing numbness to her legs bilaterally, from the hips down. she states that when she is touched she can still feel the touch but it feels that she is numb inside. She also feels weak in her legs although she could lift her legs up off the bed. She states that she had diagnosis of Guillain [place] syndrome during 2009 and was treated with IVig therapy which helped her. her weakness and paresthesia in her legs then improved but now they are coming back. She feels that the symptoms are rather similar. She has no difficulty speaking, or swallowing although she had aspiration pneumonia. she denies double vision and no facial paralysis. She saw Dr. Didier Reis yesterday for these complaints due to the fact that she was having SOB she was brought to ER and admitted. It was thought that her symptoms are likely the result of her nutritional deficiency due to her recent history of refractory vomiting and reduced oral intake. She is on B-complex. She is mildly anemic but not megalocytic. Past Med Surg Social Fam HX - Past Medical History Medical history: arthritis, coronary artery disease, DVT, GERD, hyperlipidemia, hypertension, myocardial infarction, thyroid disease, other Psychiatric history: anxiety, depression, panic disorder - Past Surgical History Surgical History: DARLENE/BSO, other - Social History Smoking Status: Never smoker Smokeless Tobacco Status: No Alcohol use: none Drug use: none - Family History Father History Unknown: Yes Living Status: Mother History Unknown: Yes Living Status: Medications and Allergies Levothyroxine [Synthroid] 25 mcg GTUBE QAM 02/22/17 [History] Aspirin [Lo-Dose Aspirin EC] 81 mg GTUBE DAILY 03/25/17 [History] Multivitamin [One Daily Multivitamin] 1 tab GTUBE DAILY 03/25/17 [History] Bisacodyl [Dulcolax] 10 mg RC DAILY #30 supp.rect 04/13/17 [Rx] Acetaminophen [Tylenol] 650 mg GTUBE Q4H PRN 05/27/17 [History] B Complex W-C No.20/Folic Acid [Nephrocaps Softgel] 1 mg GTUBE DAILY 05/27/17 [ History] Buspirone HCl [Buspar] 5 mg PO AD 05/27/17 [History] Gabapentin [Neurontin] 100 mg GTUBE TID 05/27/17 [History] GuaiFENesin/Dextromethorphan [Tussin Dm Syrup] 10 ml PO Q4H PRN 05/27/17 [ History] Ipratropium/Albuterol Neb [Duoneb] 3 ml IH Q4H PRN 05/27/17 [History] Loratadine [Claritin] 10 mg PO DAILY 05/27/17 [History] Lovastatin 40 mg GTUBE HS 05/27/17 [History] Melatonin 9 mg GTUBE HS PRN 05/27/17 [History] Methyl Salicylate/Menthol [Muscle Rub Cream] 1 appl TP Q6H PRN 05/27/17 [History ] Miconazole w/zinc oxide&karaya [Antifungal Extra Thick] 1 appl TP TID 05/27/17 [ History] Nystatin POWDER [Nystop] 1 appl TP BID PRN 05/27/17 [History] Pantoprazole Sodium [Protonix] 40 mg PO BID 05/27/17 [History] Polyethylene Glycol 3350 [MiraLAX] 17 gm GTUBE BID 05/27/17 [History] Sertraline [Zoloft] 50 mg PO DAILY 05/27/17 [History] Warfarin [Coumadin] 0.5 mg GTUBE MOWEFR 05/27/17 [History] Warfarin [Coumadin] 1 mg GTUBE SUTUTH 05/27/17 [History] 3 Allergy/AdvReac Type Severity Reaction Status Date / Time rosuvastatin [From Crestor] Allergy Hives Verified 03/24/17 20:46 All Systems: The remainder of the systems were reviewed and are negative Physical Examination - Vital Signs Vital Signs: Initial Vital Signs Pulse Ox 91 05/27/17 14:18 - Constitutional General appearance: chronically ill - Neurologic Sensorimotor examination: other (pinprick examination is somewhat vague and she can feel the touch but feels numb 'inside' no clear sensory level is seen) Detailed motor examination: other (She is able to move all extremities. She could lift her legs off the bed bilaterally and there si certainly no msucle atrophy. hand butcherette are equal) Motor examination - right side: 45: deltoids, biceps, triceps, wrist flexion, wrist extension, hip hop performers, hip flexors, tibialis Anterior, quadriceps, toe extension (EHL), plantarflexion Motor examination - left side: 4/5: deltoids, biceps, triceps, wrist flexion, wrist extension, hip flexors, hip hop performers, quadriceps, tibialis Anterior, toe extension (EHL), plantarflexion Detailed sensory examination: other (As above) Posture: other (None) Reflex and gait examination: other (Areflexic, no evidence of foot drop. gait not assessed.) Reflexes: Biceps: 0, Triceps: 0, Brachioradialis: 0, Patella: 0, Achilles: 0 Mental Status Examination: awake, alert, oriented to person, oriented to place, oriented to time, follows commands appropriately, answers questions appropriately, no agnosia, no aphasia, no aproxia Cranial nerve examination: PERRL, EOMI, visual escalante intact, corneal reflexes brisk symmetrically, sensory to face intact, mastication intact, no facial asymmetry is present, no dysarthria, hearing is intact symmetrically, soft palate elevates bilaterally upon phonation, gag reflex intact, flexes SCM and trapezius muscles symmetrically with full power, tongue protrudes midline, no atrophy or facial fasiculations present Results - Laboratory Findings CBC and BMP: 05/28/17 20:42 05/28/17 20:42 Abnormal lab findings: Abnormal lab results RBC 3.66 M/mcL (3.82-4.97) L 05/28/17 20:42 Hgb 9.0 g/dL (11.5-15.4) L 05/28/17 20:42 Hct 31.6 % (35.3-44.9) L 05/28/17 20:42 MCH 24.6 pg (28.0-33.3) L 05/28/17 20:42 MCHC 28.5 g/dL (31.6-35.5) L 05/28/17 20:42 RDW 17.8 % (11.5-14.5) H 05/28/17 20:42 MPV 9.3 fL (9.4-12.4) L 05/28/17 20:42 Polychromasia 1+ (Not Present) A 05/28/17 20:42 Hypochromasia Present (Not Present) A 05/28/17 20:42 Anisocytosis 2+ (Not Present) A 05/28/17 20:42 Macrocytosis Present (Not Present) A 05/28/17 20:42 APTT 59.6 Seconds (26.0-36.0) H D 05/28/17 06:09 Sodium 135 mEq/L (136-145) L 05/28/17 20:42 Potassium 3.4 mEq/L (3.5-5.1) L 05/28/17 20:42 BUN/Creatinine Ratio 35 (6-26) H 05/28/17 20:42 Glucose 179 mg/dL (70-105) H 05/28/17 20:42 Calcium 8.4 mg/dL (8.6-10.3) L 05/28/17 20:42 Direct Bilirubin 0.3 mg/dL (0.0-0.2) H 05/27/17 14:41 Alkaline Phosphatase 110 Units/L (34-104) H 05/27/17 14:41 Troponin I 0.04 ng/mL (< 0.04) H* 05/27/17 14:41 Albumin 3.4 g/dL (3.5-5.7) L 05/27/17 14:41 Globulin 4.6 g/dL (2.4-3.5) H 05/27/17 14:41 Albumin/Globulin Ratio 0.7 (1.1-2.2) L 05/27/17 14:41 Urine Protein 30 mg/dL (Neg-Trace) H 05/27/17 16:03 Ur Squamous Epith Cells Moderate per lpf (None-Few) H 05/27/17 16:03 CSF Tot Nucleated Cells 6 TNC/mcL (0-5) H 05/28/17 16:41 CSF Glucose 73 mg/dL (40-70) H 05/28/17 16:41 CSF Total Protein 134 mg/dL (15-45) H 05/28/17 16:41 Consult Discharge Plan - Plan Referrals: Memo Cody MD [Primary Care Provider] -
[2017-05-29] MEDS: Piperacillin/Tazobactam 3.375 GM in 0.9 % Sodium Chloride Mini Bag 100 ML IVPB SCH ×2 (00:33→10:34)
[2017-05-29] MEDS: Ipratropium/Albuterol Neb 3 ML IH SCH ×6 (01:01→20:13)
[2017-05-29 01:10] LABS: ABG Base Excess 4 mEq/L (-2 to 3); ABG HCO3 30 mEq/L (21-27); ABG Oxygen Saturation 97 % (95-98); ABG PCO2 52 mmHg (35-45); ABG PH 7.37 pH Units (7.32-7.45); ABG PO2 97 mmHg (85-104); ABG TCO2 32 mEq/L (20-26)
[2017-05-29 04:57] LABS: Basophils % 0.1 %; Hematocrit 29.2 % (35.3-44.9); Hemoglobin 8.5 g/dL (11.5-15.4); Immature Granulocytes % 0.3 % (0-4); Lymphocytes # 0.9 K/mcL (0.6-4.6); Lymphocytes % 12.3 %; Mean Corpuscular HGB Conc 29.1 g/dL (31.6-35.5); Mean Corpuscular Hemoglobin 24.8 pg (28.0-33.3); Mean Corpuscular Volume 85.1 fL (83.0-100.0); Mean Platelet Volume 9.3 fL (9.4-12.4); Monocytes # 0.1 K/mcL (0.0-1.3); Nucleated Red Blood Cells 0.3 /100 WBC (0); Platelet Count 288 K/mcL (140-400); Red Blood Count 3.43 M/mcL (3.82-4.97); Red Cell Distribution Width 17.5 % (11.5-14.5); Segmented Neutrophils % 86.3 %
[2017-05-29 05:03] LABS: INR 1.2; Prothrombin Time 12.6 Seconds (9.4-12.1)
[2017-05-29 05:19] LABS: BUN/Creatinine Ratio 35 (6-26); Blood Urea Nitrogen 24 mg/dL (8-23); Calcium 8.7 mg/dL (8.6-10.3); Carbon Dioxide 27 mEq/L (23-29); Chloride 103 mEq/L (98-107); Glucose 171 mg/dL (70-105); Osmolality,Calculated 294 (280-300); Potassium 3.4 mEq/L (3.5-5.1); Sodium 138 mEq/L (136-145); eGFR For African Americans > 60 (> 60); eGFR For Non-African Americans > 60 (> 60)
[2017-05-29 05:42] LABS: Platelet Estimate Normal (Normal); Reactive Lymphocytes Present (Not Present)
[2017-05-29 05:43] LABS: Anisocytosis 1+ (Not Present)
--- NOTE | 2017-05-29 10:29 | Internal Med Progress Note ---
<MargaritaerlinnomiSamuel rojas - Last Filed: 05/29/17 10:27> Date of Encounter: 05/29/17 Time of Encounter: 09:00 - Assessment and plan (1) Aspiration pneumonia Current Visit: Yes Status: Acute Assessment and plan: Patient presents with 5 days of cough productive of thick yellow sputum CTA suggestive of aspiration broncholitis. Blood cultures negative. History of [place] syndrome in setting of decreased sensation in L upper thigh. LP performed to r/o carcinomatous meningitis. CSF results show an elevated total protein of 134 and elevated glucose of 73. Neurology recommends no IVIG therapy even if protein is high on CSF because IVIG can increase cardiac load and aggravate congestive heart failure. IVig therapy and/or steroid therapy can be considered after medical conditions are stabilzied. - Discontinue vanc and zosyn. Since patient is on coumadin, will start on augmentin 875 PO BID instead of levaquin. - Scheduled duonebs. Albuterol PRN. Qualifiers: Aspiration pneumonia type: unspecified Laterality: left Lung location: lower lobe of lung Qualified Code(s): J69.0 - Pneumonitis due to inhalation of food and vomit (2) Hypokalemia Current Visit: Yes Status: Acute Assessment and plan: Slightly hypokalemic at 3.4. - Given 40 mEq potassium PO. (3) CAD (coronary artery disease) Current Visit: Yes Status: Acute Assessment and plan: No chest pain and mildly elevated troponin. Qualifiers: Coronary Disease-Associated Artery/Lesion type: [place] artery [place] vs. transplanted heart: [place] heart Associated angina: without angina Qualified Code(s): I25.10 - Atherosclerotic heart disease of [place] coronary artery without angina pectoris (4) Hypertension Current Visit: No Status: Chronic Assessment and plan: Controlled at 116/66. - Qualifiers: Hypertension type: essential hypertension Qualified Code(s): I10 - Essential (primary) hypertension (5) Status post repair of paraesophageal diaphragmatic hernia Current Visit: Yes Status: Acute Assessment and plan: MARILOU drain in situ from prior surgery on 04/17/17. Surgery consulted yesterday due to possible obstruction contributing to her aspiration since she had her J-tube removed on 05/29/17. Surgery plans to do a CT of the abdomen to rule out obstruction at the prior jejunostomy tube site. If there is no obstruction she may return to her diet and thickened liquids. (6) Anxiety Current Visit: Yes Status: Acute Assessment and plan: Hydroxazine 50 mg TID PRN. (7) History of DVT (deep vein thrombosis) Current Visit: Yes Status: Acute Assessment and plan: On coumadin. (8) DVT prophylaxis Current Visit: No Status: Acute Assessment and plan: on SCDs. - Subjective Interval history: When seen today, patient denies any SOB, chest pain, nausea, vomiting, abdominal pain, hematochezia, dysuria, hematuria, fever, or chills. She admits to some worsening chest congestion. She says her productive coughing has improved since yesterday. She denies any bowel movements since she has been passing gas. Says that she still has numbness in her left inner thigh that has not changed since yesterday. - Constitutional Vitals: Temp Pulse Resp BP Pulse Ox 96.6 F L 98 16 116/66 100 05/29/17 06:50 05/29/17 06:50 05/29/17 06:50 05/29/17 06:50 05/29/17 06:50 General appearance: Present: mild distress, A&O X 3, answers questions appropriately - Respiratory Respiratory exam: Present: rhonchi (B/L). Absent: accessory muscle use, rales, wheezes - Cardiovascular Cardiovascular exam: Present: +S1, +S2, tachycardia. Absent: diastolic murmur, gallop, rubs, systolic murmur Additional comments: Slight tachycardia. - GI/Abdominal GI/Abdominal exam: Present: normal bowel sounds, soft, no peritoneal signs. Absent: distended, tenderness - Extremities Exam Extremities exam: Present: full ROM, normal capillary refill, warm, radial pulses palpable and symmetrical. Absent: calf tenderness, cyanotic, pedal edema , tenderness Additional comments: 5 out of 5 strength in the upper and lower extremities. - Neurological Exam Neurological exam: Present: CN II-XII intact, oriented X3, reflexes normal, strengths equal and symetr throughout. Absent: no focal deficits, facial droop , speech deficit Additional comments: Diminished sensation in left upper middle thigh when compared to the right. Internal Medicine: Result - Labs CBC & Chem 7: 05/29/17 04:05 05/29/17 04:05 Labs: Short CBC 05/28/17 05/29/17 Range/Units 20:42 04:05 WBC 11.0 D 6.9 (4.3-11.1) K/mcL Hgb 9.0 L 8.5 L (11.5-15.4) g/dL Hct 31.6 L 29.2 L (35.3-44.9) % Plt Count 304 288 (140-400) K/mcL Neutrophils # 7.9 6.0 (1.6-8.9) K/mcL BMP 05/28/17 05/29/17 20:42 04:05 Sodium 135 L 138 Potassium 3.4 L 3.4 L Chloride 103 103 Carbon Dioxide 25 27 BUN 22 24 H Creatinine 0.62 0.69 Glucose 179 H 171 H Calcium 8.4 L 8.7 - ABG Interpretation ABG results: ABG ABG pH 7.37 pH Units (7.32-7.45) 05/29/17 01:07 ABG pCO2 52 mmHg (35-45) H 05/29/17 01:07 ABG pO2 97 mmHg (85-104) 05/29/17 01:07 ABG O2 Saturation 97 % (95-98) 05/29/17 01:07 PT/INR, D-dimer PT 12.6 Seconds (9.4-12.1) H 05/29/17 04:05 - Impressions Impressions Chest X-Ray 05/28/17 19:56 IMPRESSION: Worsening edema. D/ / Danyell Baez MD / Danyell Baez MD Interpreting Provider: Danyell Baez MD Consult Discharge Plan - Plan Referrals: Memo Cody MD [Primary Care Provider] - <Jan Kyle - Last Filed: 05/29/17 13:38> Date of Encounter: 05/29/17 - Constitutional Vitals: Temp Pulse Resp BP Pulse Ox 97.9 F 99 18 132/70 100 05/29/17 10:46 05/29/17 10:46 05/29/17 11:28 05/29/17 10:46 05/29/17 11:28 Internal Medicine: Result - Labs CBC & Chem 7: 05/29/17 04:05 05/29/17 04:05 Labs: Short CBC 05/28/17 05/29/17 Range/Units 20:42 04:05 WBC 11.0 D 6.9 (4.3-11.1) K/mcL Hgb 9.0 L 8.5 L (11.5-15.4) g/dL Hct 31.6 L 29.2 L (35.3-44.9) % Plt Count 304 288 (140-400) K/mcL Neutrophils # 7.9 6.0 (1.6-8.9) K/mcL BMP 05/28/17 05/29/17 20:42 04:05 Sodium 135 L 138 Potassium 3.4 L 3.4 L Chloride 103 103 Carbon Dioxide 25 27 BUN 22 24 H Creatinine 0.62 0.69 Glucose 179 H 171 H Calcium 8.4 L 8.7 - ABG Interpretation ABG results: ABG ABG pH 7.37 pH Units (7.32-7.45) 05/29/17 01:07 ABG pCO2 52 mmHg (35-45) H 05/29/17 01:07 ABG pO2 97 mmHg (85-104) 05/29/17 01:07 ABG O2 Saturation 97 % (95-98) 05/29/17 01:07 PT/INR, D-dimer PT 12.6 Seconds (9.4-12.1) H 05/29/17 04:05 - Impressions Impressions Chest X-Ray 05/28/17 19:56 IMPRESSION: Worsening edema. D/ / Danyell Baez MD / Danyell Baez MD Interpreting Provider: Danyell Baez MD - Attending Attestation I performed an independent interview and exam of this pt. I agree with the findings, assessment and plan of Dr. Stone, internal medicine rn intern. Clinically improved. Today we de-escalate her antibiotics to by mouth Augmentin for which he is now day 3 of a planned 10 day course of planned therapy. Swallow evaluation noted. Patient does still have significant anxiety and this is being addressed. Did stop IV Lasix. Lumbar puncture results noted showing elevated protein. Concern for CIDP, or other inflammatory processes. No evidence of infection. Cytology is pending to rule out a carcinomatosis. Finally patient had a DVT in March. 2 diffent sites. She need to be on full anticoagulation but we will await a period of 24 hours since lumbar puncture prior to restarting. She does continue on SCDs for DVT prophylaxis in the short-term. I did discuss this with the family at the bedside.
[2017-05-29] MEDS: Furosemide 40 MG/4 ML VIAL IVP SCH (10:33)
[2017-05-29] MEDS: Gabapentin 100 MG CAPSULE PO SCH ×3 (12:01→22:22)
[2017-05-29] MEDS: Multivit/Ca/Min/Fe/FA 1 TAB TABLET PO SCH (12:02)
[2017-05-29] MEDS: hydrOXYzine pamoate 25 MG CAPSULE PO PRN (12:02)
--- NOTE | 2017-05-29 14:02 | General Surgery Progress Note ---
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 She followed up with Dr. Castillo and her J-tube removed in the office on 05/25/2017. Patient reports bowel movements without any difficulty prior to admission. She denies abdominal pain, nausea, or vomiting. The patient admits flatus but denies any bowel movements today. Her gastric tube is in place. Plan: -CT of the abdomen and pelvis showed prominent left inguinal hernia containing the rather large portion of small bowel without evidence of obstruction. Gastrostomy tube tethers along the greater curvature of the stomach. -She may return to her diet and thickened liquids as per the primary team. -No surgical intervention at this time. -Will continue to monitor the patient closely. (2) Aspiration pneumonia Current Visit: Yes Status: Acute Patient has a history of aspiration of Gastrografin prior to her gastric volvulus surgery and was admitted by medicine for aspiration. Noted speech eval /recommendations of nectar thickened liquids. Contrast medium was given through her gastric tube. Patient should remain in an upright position while receiving the contrast medium and for 1 hour afterwards. Management per primary team. Qualifiers: Aspiration pneumonia type: unspecified Laterality: left Lung location: lower lobe of lung Qualified Code(s): J69.0 - Pneumonitis due to inhalation of food and vomit Subjective Patient reports: no new complaints, feels better, flatus, no bowel movement, afebrile Narrative: The patient was seen and evaluated at bedside this morning. Daughter and grandson are at bedside. The patient states that she feels better today compared to yesterday. The patient and daughter states that the patient has completed her contrast today. The patient stated that she had a panic attack last night and was unable to complete the CT scan. The patient believes she can complete her CT scan today. The patient admits she is mildly short of breath with some difficulty breathing. The patient admits ongoing cough. The patient denies any fevers, headaches, vision changes, chest pain, abdominal pain , nausea vomiting, urinary symptoms, and any weaknesses. The patient has no other concerns at this time. Objective Vital Signs - Last 8 Hours Temp Pulse Resp BP Pulse Ox 05/29/17 11:28 18 100 05/29/17 10:46 97.9 F 99 16 132/70 100 05/29/17 07:30 18 100 05/29/17 06:50 96.6 F L 98 16 116/66 100 Intake and Output 05/28/17 05/29/17 05/29/17 23:59 07:59 15:59 Intake Total 100 / 100 160 / 160 900 / 900 Output Total 1550 / 1550 600 / 600 900 / 900 Balance -1450 / -1450 -440 / -440 0 / 0 Intake: IV Fluids 100 / 100 100 / 100 Zosyn 3.375 GM In 0.9 % Sodium 100 / 100 100 / 100 Chloride (Mini-Bag +) 100 ML @ 25 mls/hr IVPB Q8HR [facility] Rx#: [id number] Oral 0 / 0 60 / 60 900 / 900 Output: Urine 1550 / 1550 Catheter 600 / 600 900 / 900 Other: Meal Dinner Lunch Percent of Meal Consumed 0% 0% Weight 67.5 kg Blood Glucose* 171 Patient Weight 05/29/17 23:59 Weight 67.5 kg - General physical appearance well developed, well nourished, no distress - Eyes PERRL, normal ocular movement - ENT normal mucosa - Neck Neck exam: trachea midline - Respiratory normal expansion, normal respiratory effort (No accessory muscle use), other ( Decreased breath sounds bilaterally. Rhonchi heard bilaterally on anterior and posterior lung escalante.) - Abdomen Abdomen: Present: bowel sounds present, soft, non tender, wound (MARILOU drain on the left side of the upper abdomen. No prudulent drainage at this time. Site where J-tube was removed is healed with scant of scabs over site.). Absent: distended, guarding, rebound, rigid - Integumentary no rash - Neurologic CN 2-12 grossly intact - Psychiatric oriented to time, oriented to person, oriented to place - Labs 05/29/17 04:05 05/29/17 04:05 Diabetes panel 05/28/17 05/29/17 Range/Units 20:42 04:05 Sodium 135 L 138 (136-145) mEq/L Potassium 3.4 L 3.4 L (3.5-5.1) mEq/L Chloride 103 103 (98-107) mEq/L Carbon Dioxide 25 27 (23-29) mEq/L BUN 22 24 H (8-23) mg/dL Creatinine 0.62 0.69 (0.60-1.20) mg/dL Glucose 179 H 171 H (70-105) mg/dL Calcium 8.4 L 8.7 (8.6-10.3) mg/dL Calcium panel 05/28/17 05/29/17 Range/Units 20:42 04:05 Calcium 8.4 L 8.7 (8.6-10.3) mg/dL Pituitary panel 05/28/17 05/29/17 Range/Units 20:42 04:05 Sodium 135 L 138 (136-145) mEq/L Potassium 3.4 L 3.4 L (3.5-5.1) mEq/L Chloride 103 103 (98-107) mEq/L Carbon Dioxide 25 27 (23-29) mEq/L BUN 22 24 H (8-23) mg/dL Creatinine 0.62 0.69 (0.60-1.20) mg/dL Glucose 179 H 171 H (70-105) mg/dL Calcium 8.4 L 8.7 (8.6-10.3) mg/dL Adrenal panel 05/28/17 05/29/17 Range/Units 20:42 04:05 Sodium 135 L 138 (136-145) mEq/L Potassium 3.4 L 3.4 L (3.5-5.1) mEq/L Chloride 103 103 (98-107) mEq/L Carbon Dioxide 25 27 (23-29) mEq/L BUN 22 24 H (8-23) mg/dL Creatinine 0.62 0.69 (0.60-1.20) mg/dL Glucose 179 H 171 H (70-105) mg/dL Calcium 8.4 L 8.7 (8.6-10.3) mg/dL Consult Discharge Plan - Plan Referrals: Memo Cody MD [Primary Care Provider] -
--- NOTE | 2017-05-29 15:02 | Neurology Progress Note ---
Date of Encounter: 05/29/17 Time of Encounter: 15:00 Assessment and Plan (1) Paresthesia of bilateral legs Current Visit: Yes Status: Acute pt continued to be symptomatic, from parasthesias, no focal motor weakness, CSF proteins were elevated as expected in GBS currently continue on symptomatic treatment, if get worse may start IVIG< but at the moment continue to monitor, continue antibiotics for pneumonia, other labs , B 12, TSH all were normal monitor FVC and Vital capacity, seem to be pure sensory symptoms not motor, will increase evening GABAPENTIN to 200 qhs, will gradually increase if needed (2) History of Guillain-[place] syndrome Current Visit: Yes Status: Acute Subjective Interval history: Ms. 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 she has been experiencing recurrent paresthesia, numbness to her legs below the groin area and increasing weakness to her legs. She has been having nausea and vomiting as a result of that and it was though that she may have developed nutritional deficiency. She states that over the last few months she has been experiencing weakness to her legs probably also her arms but over the last few days she has been experiencing numbness to her legs bilaterally, from the hips down. she states that when she is touched she can still feel the touch but it feels that she is numb inside. She also feels weak in her legs although she could lift her legs up off the bed. She has no difficulty speaking, or swallowing although she had aspiration pneumonia. she denies double vision and no facial paralysis. because of her symptoms she had LP yesterday proteins were elevated as expected. overall she is stable Objective - Constitutional Vitals: Temp Pulse Resp BP Pulse Ox 97.9 F 99 18 132/70 100 05/29/17 10:46 05/29/17 10:46 05/29/17 11:28 05/29/17 10:46 05/29/17 11:28 - Neurological Exam Sensorimotor examination: Present: other (pinprick examination is somewhat vague and she can feel the touch but feels numb 'inside' no clear sensory level is seen) Motor Examination: Present: other (She is able to move all extremities. She could lift her legs off the bed bilaterally and there si certainly no msucle atrophy. hand coloring room man are equal) Motor examination - left side: 06/10: deltoids, biceps, triceps, wrist flexion, wrist extension, hip flexors, secretary administrative assistant, quadriceps, tibialis Anterior, toe extension (EHL), plantarflexion Sensation intact: Present: other (As above) Posture: Present: other (None) Reflex and gait examination: other (Areflexic, no evidence of foot drop. gait not assessed.) Mental Status Examination: Present: awake, alert, oriented to person, oriented to place, oriented to time, follows commands appropriately, answers questions appropriately, no agnosia, no aphasia, no aproxia Cranial nerve examination: Present: PERRL, EOMI, visual escalante intact, corneal reflexes brisk symmetrically, sensory to face intact, mastication intact, no facial asymmetry is present, no dysarthria, hearing is intact symmetrically, soft palate elevates bilaterally upon phonation, gag reflex intact, flexes SCM and trapezius muscles symmetrically with full power, tongue protrudes midline, no atrophy or facial fasiculations present Results - Laboratory Findings CBC and BMP: 05/29/17 04:05 05/29/17 04:05 Abnormal lab findings: Abnormal lab results RBC 3.43 M/mcL (3.82-4.97) L 05/29/17 04:05 Hgb 8.5 g/dL (11.5-15.4) L 05/29/17 04:05 Hct 29.2 % (35.3-44.9) L 05/29/17 04:05 MCH 24.8 pg (28.0-33.3) L 05/29/17 04:05 MCHC 29.1 g/dL (31.6-35.5) L 05/29/17 04:05 RDW 17.5 % (11.5-14.5) H 05/29/17 04:05 MPV 9.3 fL (9.4-12.4) L 05/29/17 04:05 Nucleated RBCs/100 WBC 0.3 /100 WBC (0) H 05/29/17 04:05 Reactive Lymphocytes Present (Not Present) A 05/29/17 04:05 Polychromasia 1+ (Not Present) A 05/28/17 20:42 Hypochromasia Present (Not Present) A 05/28/17 20:42 Anisocytosis 1+ (Not Present) A 05/29/17 04:05 Macrocytosis Present (Not Present) A 05/28/17 20:42 PT 12.6 Seconds (9.4-12.1) H 05/29/17 04:05 APTT 59.6 Seconds (26.0-36.0) H D 05/28/17 06:09 ABG pCO2 52 mmHg (35-45) H 05/29/17 01:07 ABG HCO3 30 mEq/L (21-27) H 05/29/17 01:07 ABG Total CO2 32 mEq/L (20-26) H 05/29/17 01:07 ABG Base Excess 4 mEq/L (-2 to 3) H 05/29/17 01:07 Potassium 3.4 mEq/L (3.5-5.1) L 05/29/17 04:05 BUN 24 mg/dL (8-23) H 05/29/17 04:05 BUN/Creatinine Ratio 35 (6-26) H 05/29/17 04:05 Glucose 171 mg/dL (70-105) H 05/29/17 04:05 POC Glucose 171 (58-89) H 05/28/17 20:54 Direct Bilirubin 0.3 mg/dL (0.0-0.2) H 05/27/17 14:41 Alkaline Phosphatase 110 Units/L (34-104) H 05/27/17 14:41 Troponin I 0.04 ng/mL (< 0.04) H* 05/27/17 14:41 Albumin 3.4 g/dL (3.5-5.7) L 05/27/17 14:41 Globulin 4.6 g/dL (2.4-3.5) H 05/27/17 14:41 Albumin/Globulin Ratio 0.7 (1.1-2.2) L 05/27/17 14:41 Urine Protein 30 mg/dL (Neg-Trace) H 05/27/17 16:03 Ur Squamous Epith Cells Moderate per lpf (None-Few) H 05/27/17 16:03 CSF Tot Nucleated Cells 6 TNC/mcL (0-5) H 05/28/17 16:41 CSF Glucose 73 mg/dL (40-70) H 05/28/17 16:41 CSF Total Protein 134 mg/dL (15-45) H 05/28/17 16:41 Consult Discharge Plan - Plan Referrals: Memo Cody MD [Primary Care Provider] -
[2017-05-29] MEDS: Bisacodyl 10 MG RECTAL SUPPOSITORY RC SCH (15:51)
[2017-05-29] MEDS ORDERED: Aminoglycoside Consult 1 EACH MC ONE (16:09)
[2017-05-29] MEDS ORDERED: *HR* Warfarin 1 MG TABLET PO ONE (18:00)
[2017-05-29] MEDS: *HR* Enoxaparin 80 MG/0.8 ML SYRINGE SQ SCH (18:13)
[2017-05-30] MEDS: Ipratropium/Albuterol Neb 3 ML IH SCH ×6 (00:17→20:36)
[2017-05-30 03:16] LABS: Immature Granulocytes % 0.3 % (0-4)
[2017-05-30 03:19] LABS: Basophils % 0.6 %; Eosinophils # 0.1 K/mcL (0.0-0.6); Eosinophils % 0.8 %; Hematocrit 27.3 % (35.3-44.9); Hemoglobin 8.1 g/dL (11.5-15.4); Lymphocytes # 2.7 K/mcL (0.6-4.6); Lymphocytes % 38.2 %; Mean Corpuscular HGB Conc 29.7 g/dL (31.6-35.5); Mean Corpuscular Hemoglobin 24.8 pg (28.0-33.3); Mean Corpuscular Volume 83.7 fL (83.0-100.0); Mean Platelet Volume 9.1 fL (9.4-12.4); Monocytes # 0.6 K/mcL (0.0-1.3); Monocytes % 8.7 %; Neutrophils # 3.7 K/mcL (1.6-8.9); Platelet Count 238 K/mcL (140-400); Red Blood Count 3.26 M/mcL (3.82-4.97); Red Cell Distribution Width 17.6 % (11.5-14.5); Segmented Neutrophils % 51.4 %
[2017-05-30 03:23] LABS: INR 1.2; Prothrombin Time 13.4 Seconds (9.4-12.1)
[2017-05-30 03:58] LABS: Anisocytosis 1+ (Not Present); Hypochromasia Present (Not Present); Platelet Estimate Normal (Normal); Poikilocytosis 1+ (Not Present)
[2017-05-30 04:59] LABS: BUN/Creatinine Ratio 29 (6-26); Blood Urea Nitrogen 25 mg/dL (8-23); Calcium 8.7 mg/dL (8.6-10.3); Carbon Dioxide 28 mEq/L (23-29); Chloride 101 mEq/L (98-107); Glucose 88 mg/dL (70-105); Osmolality,Calculated 286 (280-300); Potassium 3.4 mEq/L (3.5-5.1); Sodium 136 mEq/L (136-145); eGFR For African Americans > 60 (> 60); eGFR For Non-African Americans > 60 (> 60)
[2017-05-30] MEDS: *HR* Enoxaparin 80 MG/0.8 ML SYRINGE SQ SCH ×2 (05:15→17:56)
[2017-05-30] MEDS ORDERED: *HR* Enoxaparin 40 MG/0.4 ML SYRINGE SQ SCH (06:00)
[2017-05-30] MEDS: Gabapentin 100 MG CAPSULE PO SCH ×3 (09:09→20:26)
[2017-05-30] MEDS: Multivit/Ca/Min/Fe/FA 1 TAB TABLET PO SCH (09:09)
[2017-05-30] MEDS: Bisacodyl 10 MG RECTAL SUPPOSITORY RC SCH (09:09)
--- NOTE | 2017-05-30 12:09 | Internal Med Progress Note ---
<DeshawncrystalSamuel - Last Filed: 05/30/17 12:07> Date of Encounter: 05/30/17 Time of Encounter: 09:00 - Assessment and plan (1) Aspiration pneumonia Current Visit: Yes Status: Acute Assessment and plan: Patient presents with 5 days of cough productive of thick yellow sputum CTA suggestive of aspiration broncholitis. Blood cultures negative. History of Jax Nin[place] syndrome in setting of decreased sensation in L upper thigh. LP performed to r/o carcinomatous meningitis. CSF results show an elevated total protein of 134 and elevated glucose of 73. Neurology recommends no IVIG therapy even if protein is high on CSF because IVIG can increase cardiac load and aggravate congestive heart failure. IVig therapy and/or steroid therapy can be considered after medical conditions are stabilzied. White blood cell count normal at 7.1. Afebrile. - Day #2 of Augmentin and day #5 of antibiotics. - Scheduled duonebs. Albuterol PRN. Qualifiers: Aspiration pneumonia type: unspecified Laterality: left Lung location: lower lobe of lung Qualified Code(s): J69.0 - Pneumonitis due to inhalation of food and vomit (2) Hypokalemia Current Visit: Yes Status: Acute Assessment and plan: Slightly hypokalemic at 3.4. - Given 40 mEq potassium PO. (3) CAD (coronary artery disease) Current Visit: Yes Status: Acute Assessment and plan: No chest pain and mildly elevated troponin. Qualifiers: Coronary Disease-Associated Artery/Lesion type: redding artery [place] vs. transplanted heart: redding heart Associated angina: without angina Qualified Code(s): I25.10 - Atherosclerotic heart disease of redding coronary artery without angina pectoris (4) Hypertension Current Visit: No Status: Chronic Assessment and plan: Controlled at 133/83. - Qualifiers: Hypertension type: essential hypertension Qualified Code(s): I10 - Essential (primary) hypertension (5) Status post repair of paraesophageal diaphragmatic hernia Current Visit: Yes Status: Acute Assessment and plan: MARILOU drain in situ from prior surgery on 04/17/17. Surgery consulted yesterday due to possible obstruction contributing to her aspiration since she had her J-tube removed on 05/29/17. CT of the abdomen and pelvis showed prominent left inguinal hernia containing the rather large portion of small bowel without evidence of obstruction. Gastrostomy tube tethers along the greater curvature of the stomach. - Plan is for removal of MARILOU drain tomorrow. (6) Anxiety Current Visit: Yes Status: Acute Assessment and plan: Hydroxazine 50 mg TID PRN. (7) History of DVT (deep vein thrombosis) Current Visit: Yes Status: Acute Assessment and plan: On coumadin and Lovenox. (8) DVT prophylaxis Current Visit: No Status: Acute Assessment and plan: On Lovenox. - Subjective Interval history: When seen today, patient denies any SOB, chest pain, nausea, vomiting, abdominal pain, hematochezia, dysuria, hematuria, fever, or chills. Her chest congestion has improved. She says her productive coughing has improved since yesterday. She denies any bowel movements since but she has been passing gas. Says that she still has numbness in her left inner thigh that has not changed since yesterday. Patient also admits to some drainage from her MARILOU site that is new. - Constitutional Vitals: Temp Pulse Resp BP Pulse Ox 97.5 F L 95 16 133/83 99 05/30/17 06:35 05/30/17 06:35 05/30/17 11:34 05/30/17 06:35 05/30/17 11:34 General appearance: Present: A&O X 3, no acute distress, answers questions appropriately - Respiratory Respiratory exam: Present: CTAB. Absent: accessory muscle use, rales, rhonchi, wheezes - Cardiovascular Cardiovascular exam: Present: RRR, +S1, +S2. Absent: diastolic murmur, gallop, rubs, systolic murmur - GI/Abdominal GI/Abdominal exam: Present: normal bowel sounds, soft, no peritoneal signs. Absent: distended, tenderness Additional comments: MARILOU site and left upper quadrant shows some new signs of drainage. No active bleeding noted no signs of pus. No erythema. - Extremities Exam Extremities exam: Present: warm, radial pulses palpable and symmetrical. Absent : calf tenderness, cyanotic, pedal edema Additional comments: Admits to light numbness in left upper thigh that has not changed since yesterday. - Neurological Exam Neurological exam: Present: CN II-XII intact, oriented X3, no focal deficits, strengths equal and symetr throughout. Absent: pronater drift, facial droop, speech deficit Internal Medicine: Result - Labs CBC & Chem 7: 05/30/17 02:50 05/30/17 02:50 Labs: Short CBC 05/30/17 Range/Units 02:50 WBC 7.1 (4.3-11.1) K/mcL Hgb 8.1 L (11.5-15.4) g/dL Hct 27.3 L (35.3-44.9) % Plt Count 238 (140-400) K/mcL Neutrophils # 3.7 (1.6-8.9) K/mcL BMP 05/30/17 02:50 Sodium 136 Potassium 3.4 L Chloride 101 Carbon Dioxide 28 BUN 25 H Creatinine 0.85 Glucose 88 Calcium 8.7 - ABG Interpretation ABG results: ABG ABG pH 7.37 pH Units (7.32-7.45) 05/29/17 01:07 ABG pCO2 52 mmHg (35-45) H 05/29/17 01:07 ABG pO2 97 mmHg (85-104) 05/29/17 01:07 ABG O2 Saturation 97 % (95-98) 05/29/17 01:07 PT/INR, D-dimer PT 13.4 Seconds (9.4-12.1) H 05/30/17 02:50 - Impressions Impressions Abdomen/Pelvis CT 05/29/17 13:30 IMPRESSION: 1. Left basilar consolidation and pleural effusion. Pneumonia is a consideration. 2. Small patchy alveolar densities right lung base can be seen with aspiration or pneumonitis. 3. Prominent left inguinal hernia containing the rather large portion of small bowel without evidence of obstruction. 4. Cholelithiasis. 5. Gastrostomy tube tethers along the greater curvature of the stomach. D/ / Efraín Gomez / Efraín Gomez Interpreting Provider: Efraín Gomez Consult Discharge Plan - Plan Referrals: Memo Cody MD [Primary Care Provider] - <Jan Kyle - Last Filed: 05/30/17 12:24> Date of Encounter: 05/30/17 - Constitutional Vitals: Temp Pulse Resp BP Pulse Ox 97.5 F L 95 16 133/83 99 05/30/17 06:35 05/30/17 06:35 05/30/17 11:34 05/30/17 06:35 05/30/17 11:34 Internal Medicine: Result - Labs CBC & Chem 7: 05/30/17 02:50 05/30/17 02:50 Labs: Short CBC 05/30/17 Range/Units 02:50 WBC 7.1 (4.3-11.1) K/mcL Hgb 8.1 L (11.5-15.4) g/dL Hct 27.3 L (35.3-44.9) % Plt Count 238 (140-400) K/mcL Neutrophils # 3.7 (1.6-8.9) K/mcL BMP 05/30/17 02:50 Sodium 136 Potassium 3.4 L Chloride 101 Carbon Dioxide 28 BUN 25 H Creatinine 0.85 Glucose 88 Calcium 8.7 - ABG Interpretation ABG results: ABG ABG pH 7.37 pH Units (7.32-7.45) 05/29/17 01:07 ABG pCO2 52 mmHg (35-45) H 05/29/17 01:07 ABG pO2 97 mmHg (85-104) 05/29/17 01:07 ABG O2 Saturation 97 % (95-98) 05/29/17 01:07 PT/INR, D-dimer PT 13.4 Seconds (9.4-12.1) H 05/30/17 02:50 - Impressions Impressions Abdomen/Pelvis CT 05/29/17 13:30 IMPRESSION: 1. Left basilar consolidation and pleural effusion. Pneumonia is a consideration. 2. Small patchy alveolar densities right lung base can be seen with aspiration or pneumonitis. 3. Prominent left inguinal hernia containing the rather large portion of small bowel without evidence of obstruction. 4. Cholelithiasis. 5. Gastrostomy tube tethers along the greater curvature of the stomach. D/ / Efraín Gomez / Efraín Gomez Interpreting Provider: Efraín Gomez - Attending Attestation I performed an independent interview and examine this patient. I agree with the findings, assessment, and plan of , internal medicine program management intern. Patient continues to improve. She is still requiring oxygen. Neurology input noted and appreciated, possibly further therapy as an outpatient. Patient will be evaluated by general surgery tomorrow and determination will be made whether or not to keep her MARILOU drain. All else as outlined above. Kidney with physical therapy and increasing mobility.
--- NOTE | 2017-05-30 12:44 | General Surgery Progress Note ---
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 She followed up with Dr. Castillo and her J-tube removed in the office on 05/25/2017. Patient reports bowel movements without any difficulty prior to admission. She denies abdominal pain, nausea, or vomiting. The patient admits flatus but denies any bowel movements today. Her gastric tube is in place. Plan: -Will consult speech therapy for a swallow evaluation. -Drainage from the G-tube appears to be food. Patient has an appointment with Dr. Castillo at the outpatient clinic on 06/01/17. Dr. Castillo will see the patient tomorrow to evaluate again. -CT of the abdomen and pelvis 05/30/17 showed prominent left inguinal hernia containing the rather large portion of small bowel without evidence of obstruction. Gastrostomy tube tethers along the greater curvature of the stomach. -She may return to her diet and thickened liquids as per the primary team. -No surgical intervention at this time. -Will continue to monitor the patient closely. (2) Aspiration pneumonia Current Visit: Yes Status: Acute Patient has a history of aspiration of Gastrografin prior to her gastric volvulus surgery and was admitted by medicine for aspiration. Noted speech eval /recommendations of nectar thickened liquids. Will order a consult to speech therapy for a swallowing evaluation Management per primary team. Qualifiers: Aspiration pneumonia type: unspecified Laterality: left Lung location: lower lobe of lung Qualified Code(s): J69.0 - Pneumonitis due to inhalation of food and vomit Subjective Patient reports: feels better, flatus, bowel movement, afebrile Narrative: The patient was seen and evaluated at bedside this morning daughter and grandson is at bedside. Patient states she is feeling better compared to yesterday. She has no new complaints and admits tolerating her regular diet without any difficulty. The daughter states she noticed some drainage from her G tube this morning. The daughter states that the patient has been eating plenty of applesauce and the drainage appears to looked similar to applesauce. The patient denies any pain near her G-tube or anywhere in her abdomen. The patient denies any fever, headaches, vision changes, chest pain, shortness of breath, difficulty breathing, diarrhea, blood in his stool, urinary symptoms, nausea, vomiting, and any weaknesses. The patient has no other concerns at this time. Objective Vital Signs - Last 8 Hours Temp Pulse Resp BP Pulse Ox 05/30/17 11:34 16 99 05/30/17 07:28 16 99 05/30/17 06:35 97.5 F L 95 16 133/83 97 Intake and Output 05/29/17 05/30/17 05/30/17 23:59 07:59 15:59 Intake Total 220 / 220 0 / 0 Output Total 100 / 100 700 / 700 100 / 100 Balance 120 / 120 -700 / -700 -100 / -100 Intake: Oral 220 / 220 0 / 0 Output: Urine 0 / 0 Catheter 100 / 100 700 / 700 100 / 100 Other: # Bowel Movements 0 Weight 63.1 kg Patient Weight 05/30/17 23:59 Weight 63.1 kg - General physical appearance well developed, well nourished, no distress - Eyes PERRL, normal ocular movement - ENT normal mucosa - Neck Neck exam: trachea midline - Respiratory normal expansion (No acute distress. ), normal respiratory effort, other (No accessory muscle use. Decreased breath sounds bilaterally. Rhonchi heard bilaterally on anterior and posterior lung escalante.) - Cardiovascular Cardiovascular exam: Present: RRR, no murmurs/rubs/gallops - Abdomen Abdomen: Present: bowel sounds present, soft, non tender, wound (G tube on the left side of the upper abdomen. No prudulent drainage at this time. Site where J-tube was removed is healed with scant of scabs over site.). Absent: distended , guarding, rebound - Incision Incision: Present: clean and dry, intact. Absent: draining, purulent - Integumentary no rash, no abnormal pigmentation - Neurologic CN 2-12 grossly intact - Psychiatric oriented to time, oriented to person, oriented to place - Labs 05/30/17 02:50 05/30/17 02:50 Diabetes panel 05/30/17 Range/Units 02:50 Sodium 136 (136-145) mEq/L Potassium 3.4 L (3.5-5.1) mEq/L Chloride 101 (98-107) mEq/L Carbon Dioxide 28 (23-29) mEq/L BUN 25 H (8-23) mg/dL Creatinine 0.85 (0.60-1.20) mg/dL Glucose 88 (70-105) mg/dL Calcium 8.7 (8.6-10.3) mg/dL Calcium panel 05/30/17 Range/Units 02:50 Calcium 8.7 (8.6-10.3) mg/dL Pituitary panel 05/30/17 Range/Units 02:50 Sodium 136 (136-145) mEq/L Potassium 3.4 L (3.5-5.1) mEq/L Chloride 101 (98-107) mEq/L Carbon Dioxide 28 (23-29) mEq/L BUN 25 H (8-23) mg/dL Creatinine 0.85 (0.60-1.20) mg/dL Glucose 88 (70-105) mg/dL Calcium 8.7 (8.6-10.3) mg/dL Adrenal panel 05/30/17 Range/Units 02:50 Sodium 136 (136-145) mEq/L Potassium 3.4 L (3.5-5.1) mEq/L Chloride 101 (98-107) mEq/L Carbon Dioxide 28 (23-29) mEq/L BUN 25 H (8-23) mg/dL Creatinine 0.85 (0.60-1.20) mg/dL Glucose 88 (70-105) mg/dL Calcium 8.7 (8.6-10.3) mg/dL Consult Discharge Plan - Plan Referrals: Memo Cody MD [Primary Care Provider] -
--- NOTE | 2017-05-30 15:08 | Neurology Progress Note ---
Date of Encounter: 05/30/17 Time of Encounter: 15:05 Assessment and Plan (1) Paresthesia of bilateral legs Current Visit: Yes Status: Acute Patient remains weak and lower extremities. Paresthesia seems to be stable with the medication suggested to continue on the current dose History of Jax [place] syndrome, CSF results show an elevated total protein of 134 and elevated glucose of 73. Considering her symptoms and the overall duration along with other multiple medical conditions did not recommend IVIG therapy, as it can can increase cardiac load and aggravate congestive heart failure, at the same time may increase the renal failure. We will hold on for IVig therapy and/or steroid therapy can be considered after medical conditions are stabilized. Patient would require rehabilitation, perhaps may benefit from short-term acute rehabilitation. 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 Current Visit: Yes Status: Acute Subjective Interval history: Patient seems to be stable no other new focal findings on examinations remains weak which is more generalized weakness numbness seems to improve since increasing the dose of gabapentin overall she is a stable breathing status is also stable and improved Objective - Constitutional Vitals: Temp Pulse Resp BP Pulse Ox 97.5 F L 95 16 133/83 99 05/30/17 06:35 05/30/17 06:35 05/30/17 11:34 05/30/17 06:35 05/30/17 11:34 - Neurological Exam Sensorimotor examination: Present: other (pinprick examination is somewhat vague and she can feel the touch but feels numb 'inside' no clear sensory level is seen) Motor Examination: Present: other (She is able to move all extremities. She could lift her legs off the bed bilaterally and there si certainly no msucle atrophy. hand power generation technician are equal) Motor examination - left side: 4/5: deltoids, biceps, triceps, wrist flexion, wrist extension, hip flexors, inclusion specialist, quadriceps, tibialis Anterior, toe extension (EHL), plantarflexion Sensation intact: Present: other (As above) Posture: Present: other (None) Reflex and gait examination: other (Areflexic, no evidence of foot drop. gait not assessed.) Mental Status Examination: Present: awake, alert, oriented to person, oriented to place, oriented to time, follows commands appropriately, answers questions appropriately, no agnosia, no aphasia, no aproxia Cranial nerve examination: Present: PERRL, EOMI, visual escalante intact, corneal reflexes brisk symmetrically, sensory to face intact, mastication intact, no facial asymmetry is present, no dysarthria, hearing is intact symmetrically, soft palate elevates bilaterally upon phonation, gag reflex intact, flexes SCM and trapezius muscles symmetrically with full power, tongue protrudes midline, no atrophy or facial fasiculations present Results - Laboratory Findings CBC and BMP: 05/30/17 02:50 05/30/17 02:50 Abnormal lab findings: Abnormal lab results RBC 3.26 M/mcL (3.82-4.97) L 05/30/17 02:50 Hgb 8.1 g/dL (11.5-15.4) L 05/30/17 02:50 Hct 27.3 % (35.3-44.9) L 05/30/17 02:50 MCH 24.8 pg (28.0-33.3) L 05/30/17 02:50 MCHC 29.7 g/dL (31.6-35.5) L 05/30/17 02:50 RDW 17.6 % (11.5-14.5) H 05/30/17 02:50 MPV 9.1 fL (9.4-12.4) L 05/30/17 02:50 Nucleated RBCs/100 WBC 0.3 /100 WBC (0) H 05/29/17 04:05 Reactive Lymphocytes Present (Not Present) A 05/29/17 04:05 Polychromasia 1+ (Not Present) A 05/28/17 20:42 Hypochromasia Present (Not Present) A 05/30/17 02:50 Poikilocytosis 1+ (Not Present) A 05/30/17 02:50 Anisocytosis 1+ (Not Present) A 05/30/17 02:50 Macrocytosis Present (Not Present) A 05/28/17 20:42 PT 13.4 Seconds (9.4-12.1) H 05/30/17 02:50 APTT 59.6 Seconds (26.0-36.0) H D 05/28/17 06:09 ABG pCO2 52 mmHg (35-45) H 05/29/17 01:07 ABG HCO3 30 mEq/L (21-27) H 05/29/17 01:07 ABG Total CO2 32 mEq/L (20-26) H 05/29/17 01:07 ABG Base Excess 4 mEq/L (-2 to 3) H 05/29/17 01:07 Potassium 3.4 mEq/L (3.5-5.1) L 05/30/17 02:50 BUN 25 mg/dL (8-23) H 05/30/17 02:50 BUN/Creatinine Ratio 29 (6-26) H 05/30/17 02:50 POC Glucose 171 (58-89) H 05/28/17 20:54 Direct Bilirubin 0.3 mg/dL (0.0-0.2) H 05/27/17 14:41 Alkaline Phosphatase 110 Units/L (34-104) H 05/27/17 14:41 Troponin I 0.04 ng/mL (< 0.04) H* 05/27/17 14:41 Albumin 3.4 g/dL (3.5-5.7) L 05/27/17 14:41 Globulin 4.6 g/dL (2.4-3.5) H 05/27/17 14:41 Albumin/Globulin Ratio 0.7 (1.1-2.2) L 05/27/17 14:41 Urine Protein 30 mg/dL (Neg-Trace) H 05/27/17 16:03 Ur Squamous Epith Cells Moderate per lpf (None-Few) H 05/27/17 16:03 CSF Tot Nucleated Cells 6 TNC/mcL (0-5) H 05/28/17 16:41 CSF Glucose 73 mg/dL (40-70) H 05/28/17 16:41 CSF Total Protein 134 mg/dL (15-45) H 05/28/17 16:41 Consult Discharge Plan - Plan Referrals: Memo Cody MD [Primary Care Provider] -
[2017-05-30] MEDS ORDERED: *HR* Warfarin 3 MG TABLET PO ONE (18:00)
[2017-05-30] MEDS ORDERED: *HR* Warfarin 1 MG TABLET GTUBE SCH (18:00)
[2017-05-31] MEDS: Ipratropium/Albuterol Neb 3 ML IH SCH ×5 (00:31→15:03)
[2017-05-31 02:53] LABS: Basophils % 0.5 %; Hemoglobin 8.6 g/dL (11.5-15.4)
[2017-05-31 02:54] LABS: Eosinophils # 0.2 K/mcL (0.0-0.6); Eosinophils % 3.4 %; Hematocrit 29.3 % (35.3-44.9); Immature Granulocytes % 0.3 % (0-4); Lymphocytes # 2.6 K/mcL (0.6-4.6); Lymphocytes % 39.8 %; Mean Corpuscular HGB Conc 29.4 g/dL (31.6-35.5); Mean Corpuscular Hemoglobin 24.5 pg (28.0-33.3); Mean Corpuscular Volume 83.5 fL (83.0-100.0); Monocytes # 0.5 K/mcL (0.0-1.3); Monocytes % 8.4 %; Neutrophils # 3.1 K/mcL (1.6-8.9); Platelet Count 256 K/mcL (140-400); Red Blood Count 3.51 M/mcL (3.82-4.97); Red Cell Distribution Width 17.6 % (11.5-14.5); Segmented Neutrophils % 47.6 %
[2017-05-31 02:58] LABS: INR 1.3; Prothrombin Time 14.2 Seconds (9.4-12.1)
[2017-05-31 03:12] LABS: BUN/Creatinine Ratio 32 (6-26); Blood Urea Nitrogen 20 mg/dL (8-23); Calcium 9.1 mg/dL (8.6-10.3); Carbon Dioxide 29 mEq/L (23-29); Chloride 101 mEq/L (98-107); Glucose 91 mg/dL (70-105); Osmolality,Calculated 282 (280-300); Sodium 135 mEq/L (136-145); eGFR For African Americans > 60 (> 60); eGFR For Non-African Americans > 60 (> 60)
[2017-05-31 03:18] LABS: Hypochromasia Present (Not Present); Platelet Estimate Normal (Normal); Reactive Lymphocytes Present (Not Present)
[2017-05-31] MEDS: *HR* Enoxaparin 80 MG/0.8 ML SYRINGE SQ SCH (05:12)
[2017-05-31 07:02] VITALS: BP 136/98
--- NOTE | 2017-05-31 08:20 | General Surgery Progress Note ---
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 She did have some episodes of aspiration both pre-and post surgical intervention. She followed up with Dr. Castillo and her J-tube removed in the office on 05/25/2017. CT of the abdomen and pelvis with ice overview noted prominent left inguinal hernia containing a rather large portion of the small bowel without evidence of obstruction (this is not a new finding), gastrostomy tube tethers along the greater curvature of the stomach, there is no mention of obstruction at the jejunum or below. Pt states she is having intermittent constipation. Plan: patient may return to diet as per primary team. No surgical intervention indicated at this time. Pt states she is having intermittent constipation; would recommend daily stool softener and or miralax until resolved. Surgery will sign off at this time. Thank you for allowing us to participate and Anne Marie's care. Please call if there are any further questions or concerns. She will follow up with Dr. Castillo in approximately one week for reevaluation. (2) Aspiration pneumonia Status: Acute See assessment and plan above. Qualifiers: Aspiration pneumonia type: unspecified Laterality: left Lung location: lower lobe of lung Qualified Code(s): J69.0 - Pneumonitis due to inhalation of food and vomit Subjective Patient reports: no new complaints, tolerating liquids well, tolerating a regular diet, voiding w/o difficulty, flatus, no bowel movement, afebrile, other (cough) Objective Vital Signs - Last 8 Hours Temp Pulse Resp BP Pulse Ox 05/31/17 08:05 16 95 05/31/17 06:59 97.6 F 115 16 136/98 95 05/31/17 05:32 97.6 F 104 20 152/92 92 05/31/17 04:02 20 92 05/31/17 00:31 16 94 Intake and Output 05/30/17 05/31/17 05/31/17 23:59 07:59 15:59 Intake Total 240 / 240 480 / 480 Output Total 400 / 400 200 / 200 Balance -160 / -160 280 / 280 Intake: Oral 240 / 240 480 / 480 Output: Urine 400 / 400 200 / 200 Other: Meal Dinner Percent of Meal Consumed 75% # Urine Diapers 2 # Bowel Movement Diapers 0 Weight 65.2 kg Patient Weight 05/31/17 23:59 Weight 65.2 kg - General physical appearance no distress - Eyes normal ocular movement - ENT atraumatic, normocephalic - Neck Neck exam: trachea midline, no venous distension - Respiratory normal expansion, other (Wet sounding cough.) - Cardiovascular Cardiovascular exam: Present: RRR - Abdomen Abdomen: Present: bowel sounds present, soft, non tender, wound (Gastric tube site within normal limits. Clamped.) - Integumentary no abnormal pigmentation - Neurologic normal sensation - Musculoskeletal normal posture - Psychiatric oriented to time, oriented to person, oriented to place - Labs 05/31/17 02:34 05/31/17 02:34 Diabetes panel 05/31/17 Range/Units 02:34 Sodium 135 L (136-145) mEq/L Potassium 4.0 (3.5-5.1) mEq/L Chloride 101 (98-107) mEq/L Carbon Dioxide 29 (23-29) mEq/L BUN 20 (8-23) mg/dL Creatinine 0.62 (0.60-1.20) mg/dL Glucose 91 (70-105) mg/dL Calcium 9.1 (8.6-10.3) mg/dL Calcium panel 05/31/17 Range/Units 02:34 Calcium 9.1 (8.6-10.3) mg/dL Pituitary panel 05/31/17 Range/Units 02:34 Sodium 135 L (136-145) mEq/L Potassium 4.0 (3.5-5.1) mEq/L Chloride 101 (98-107) mEq/L Carbon Dioxide 29 (23-29) mEq/L BUN 20 (8-23) mg/dL Creatinine 0.62 (0.60-1.20) mg/dL Glucose 91 (70-105) mg/dL Calcium 9.1 (8.6-10.3) mg/dL Adrenal panel 05/31/17 Range/Units 02:34 Sodium 135 L (136-145) mEq/L Potassium 4.0 (3.5-5.1) mEq/L Chloride 101 (98-107) mEq/L Carbon Dioxide 29 (23-29) mEq/L BUN 20 (8-23) mg/dL Creatinine 0.62 (0.60-1.20) mg/dL Glucose 91 (70-105) mg/dL Calcium 9.1 (8.6-10.3) mg/dL Consult Discharge Plan - Plan Instructions: Amoxicillin/Clavulanate Potassium (By mouth), Apixaban (By mouth) , Atrial Fibrillation (DC), Acute Respiratory Distress Syndrome (DC), Urinary Tract Infection in Women (DC), Chronic Hypertension (DC), Anxiety (DC), Pneumonia (DC) Referrals: Memo Cody MD [Primary Care Provider] - Kayden Castillo MD [Partnered Physician] - 06/08/17 11:45 am Prescriptions: Amoxicillin/Clavulanate [Augmentin] 875 mg PO BIDWM #8 tablet Apixaban [Eliquis] 5 mg PO BID #60 tablet <Kayden Castillo - Last Filed: 06/01/17 09:29> Date of Encounter: 05/31/17 Objective - Labs 05/31/17 02:34 05/31/17 02:34 - Attending Attestation I have personally performed a face to face evaluation on this patient. I have reviewed and agree with the care plan. History and Exam by me shows: The patient is seen and evaluated on morning rounds. The patient's care is discussed the clinical nurse practitioner. There is no evidence of bowel obstruction on CAT scan of the abdomen. She may progress her diet. She should be able to have the gastrostomy tube removed next week. Kayden Castillo MD FACS
--- NOTE | 2017-05-31 11:20 | Discharge Summary ---
<Jan Kyle R - Last Filed: 05/31/17 12:30> Orders not resulted at time of discharge: Pending orders 05/28/17 15:44 MMA (VIT B12 STATUS) Routine Vitamin B1 (Thiamine) Whole Bl Routine 05/28/17 16:41 Culture,CSF [RM] Stat 06/01/17 04:00 PT/INR [Prothrombin Time INR] [COAG] AM 0400 06/02/17 04:00 PT/INR [Prothrombin Time INR] [COAG] AM 0400 Date of Encounter: 05/31/17 Hospital course: Ms. Leach is a 81 year old female - Time Spent with Patient Total time spent providing and/or coordinating discharge services: - Discharge Medications Prescriptions: Amoxicillin/Clavulanate [Augmentin] 875 mg PO BIDWM #8 tablet Apixaban [Eliquis] 5 mg PO BID #60 tablet Home Medications: Levothyroxine [Synthroid] 25 mcg GTUBE QAM 02/22/17 [History] Aspirin [Lo-Dose Aspirin EC] 81 mg GTUBE DAILY 03/25/17 [History] Multivitamin [One Daily Multivitamin] 1 tab GTUBE DAILY 03/25/17 [History] Bisacodyl [Dulcolax] 10 mg RC DAILY #30 supp.rect 04/13/17 [Rx] Acetaminophen [Tylenol] 650 mg GTUBE Q4H PRN 05/27/17 [History] B Complex W-C No.20/Folic Acid [Nephrocaps Softgel] 1 mg GTUBE DAILY 05/27/17 [ History] Buspirone HCl [Buspar] 5 mg PO AD 05/27/17 [History] Gabapentin [Neurontin] 100 mg GTUBE TID 05/27/17 [History] GuaiFENesin/Dextromethorphan [Tussin Dm Syrup] 10 ml PO Q4H PRN 05/27/17 [ History] Ipratropium/Albuterol Neb [Duoneb] 3 ml IH Q4H PRN 05/27/17 [History] Loratadine [Claritin] 10 mg PO DAILY 05/27/17 [History] Lovastatin 40 mg GTUBE HS 05/27/17 [History] Melatonin 9 mg GTUBE HS PRN 05/27/17 [History] Methyl Salicylate/Menthol [Muscle Rub Cream] 1 appl TP Q6H PRN 05/27/17 [History ] Miconazole w/zinc oxide&karaya [Antifungal Extra Thick] 1 appl TP TID 05/27/17 [ History] Nystatin POWDER [Nystop] 1 appl TP BID PRN 05/27/17 [History] Pantoprazole Sodium [Protonix] 40 mg PO BID 05/27/17 [History] Polyethylene Glycol 3350 [MiraLAX] 17 gm GTUBE BID 05/27/17 [History] Sertraline [Zoloft] 50 mg PO DAILY 05/27/17 [History] Amoxicillin/Clavulanate [Augmentin] 875 mg PO BIDWM #8 tablet 05/31/17 [Rx] Apixaban [Eliquis] 5 mg PO BID #60 tablet 05/31/17 [Rx] Allergies/Adverse Reactions: 3 Allergy/AdvReac Type Severity Reaction Status Date / Time rosuvastatin [From Crestor] Allergy Hives Verified 03/24/17 20:46 Date of admission: 05/27/17 19:52 Primary care physician: Memo Cody MD Consults: 05/28/17 08:31 Consult to Plumbing Instructor [CONS] Routine Reason for SW Consult: Patient from [facility]/was at [facility] prior to that 05/28/17 09:00 Consult to Speech Therapy [CONS] Routine Comment: Evaluate, develop and implement POC Reason for Consult: Aspiration risk; admission for aspiration PNA Time Notified: 22:34 Call Completed: Yes 05/28/17 12:48 Consult to Physical Therapy [CONS] Routine Comment: Evaluate, develop and implement POC Reason for Consult: Patient admitted to possible aspiration bronchiolitis. Does patient have active BEDREST order?: No Is patient medically & hemodynamically stable?: Yes Patient assessed for mobility or mobilized this visit?: No 05/28/17 12:55 Consult to Surgery [CONS] Routine Consulting Provider: [facility] Reason for Consult: J-Tube removal evaluation Call Completed: Yes 05/30/17 12:32 Consult to Speech Therapy [CONS] Routine Comment: Evaluate, develop and implement POC Reason for Consult: Swallow evaluation for aspiration risk Call Completed: No - Constitutional Vitals: Temp Pulse Resp BP Pulse Ox 97.6 F 115 18 136/98 95 05/31/17 06:59 05/31/17 06:59 05/31/17 11:08 05/31/17 06:59 05/31/17 11:08 - Patient Status Disposition: Home Health Service Condition: Fair - Discharge Instructions Follow Up With: Kayden Castillo MD [Partnered Physician] - 06/08/17 11:45 am Memo Cody MD [Primary Care Provider] - - Attending Attestation I performed an independent interview and exam of this patient. I agree with the findings, assessment, and plan of Dr. Stone, internal medicine contracts intern. Patient is stable for discharge. She will likely need supplemental oxygen. We will continue Augmentin to complete a 10 day course for suspected aspiration pneumonia. She also needs anticoagulation and we will review with her whether or not she wants to continue on Coumadin or try one of the novel oral anticoagulant agents. Surgery did see her and they are leaving her drain in place. All else as outlined above. Patient stable for discharge. A total of 41 minutes was spent on discharge and coordination of care. <Samuel Stone - Last Filed: 05/31/17 13:25> Orders not resulted at time of discharge: Pending orders 05/28/17 15:44 MMA (VIT B12 STATUS) Routine Vitamin B1 (Thiamine) Whole Bl Routine 05/28/17 16:41 Culture,CSF [RM] Stat 06/01/17 04:00 PT/INR [Prothrombin Time INR] [COAG] AM 0400 06/02/17 04:00 PT/INR [Prothrombin Time INR] [COAG] AM 0400 Date of Encounter: 05/31/17 Time of Encounter: 09:00 - Discharge Diagnosis (1) Aspiration pneumonia Priority: Primary Status: Acute Qualifiers: Aspiration pneumonia type: unspecified Laterality: left Lung location: lower lobe of lung Qualified Code(s): J69.0 - Pneumonitis due to inhalation of food and vomit (2) Hypokalemia Priority: Primary Status: Resolved (3) CAD (coronary artery disease) Priority: Primary Status: Chronic Qualifiers: Coronary Disease-Associated Artery/Lesion type: kaw artery [place] vs. 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 Leach is a 81 year old female with a PMH of hypertension, atrial fibrillation, recent aspiration pneumonia admission (04/19/17), high cholesterol , CAD, and anemia, history of DVT that presented for SOB and productive cough. Symptoms have been occurring for the past 5 days with production of thick yellow sputum. No fever. Patient was found to have hypoxemia in the ER and placed on BiPAP. CTA of the chest shows aspiration bronchiolitis in RU and RM lobes. No PE found. Patient was started on Vanco and Zosyn. Last echocardiogram showed an EF of 65-70% (on 03/26/17). Hemoglobin dropped from 9.8 8.3 since yesterday. INR was 1.1 yesterday. Troponin was 0.04 yesterday. Chest CTA was negative for PE. Heparin drip was stopped. Magnesium was normal at 1.8. BMP normal at 53. Blood pressure 133/71 pulse slightly tachycardia at 108 95% oxygen on oxygen mask 5 L. Suspected aspiration pneumonia. Patient also has MARILOU drainage tube from prior paraesophageal repair surgery. Surgery called to evaluate removal of tube. Surgery would like to keep tube in place for now and has a follow-up appointment with Dr. Castillo (Surgery) in 1 week for re- evaluation. History of Jax Moon syndrome. LP performed to r/o carcinomatous meningitis. CSF pulmonary cultures: Few white blood cells and no bacteria observed no Gram stain. Blood cultures negative. CSF results show an elevated total protein of 134, elevated glucose of 73. Neurology recommends no IVIG therapy even if protein is high on CSF because IVIG can increase cardiac load and aggravate congestive heart failure. IVig therapy and/or steroid therapy can be considered after medical conditions are stabilized. When seen today, patient says her cough has considerably improved. She denies any shortness of breath, fever, chills, nausea, vomiting, and abdominal pain. Patient currently on day 6 of antibiotics for aspiration PNA. She will finish 4 more days of augmentin for a total of 10 day course. 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 Patient will need to follow-up with PCP in 1 week. She will also need to follow-up with a neurologist as well. Discharge discussed with: patient, family - Time Spent with Patient Total time spent providing and/or coordinating discharge services: Less than 30 minutes Date of admission: 05/27/17 19:52 Primary care physician: Memo Cody MD Consults: 05/28/17 08:31 Consult to Plumbing Instructor [CONS] Routine Reason for SW Consult: Patient from [facility]/was at [facility] prior to that 05/28/17 09:00 Consult to Speech Therapy [CONS] Routine Comment: Evaluate, develop and implement POC Reason for Consult: Aspiration risk; admission for aspiration PNA Time Notified: 22:34 Call Completed: Yes 05/28/17 12:48 Consult to Physical Therapy [CONS] Routine Comment: Evaluate, develop and implement POC Reason for Consult: Patient admitted to possible aspiration bronchiolitis. Does patient have active BEDREST order?: No Is patient medically & hemodynamically stable?: Yes Patient assessed for mobility or mobilized this visit?: No 05/28/17 12:55 Consult to Surgery [CONS] Routine Consulting Provider: Surgery [facility] Reason for Consult: J-Tube removal evaluation Call Completed: Yes 05/30/17 12:32 Consult to Speech Therapy [CONS] Routine Comment: Evaluate, develop and implement POC Reason for Consult: Swallow evaluation for aspiration risk Call Completed: No Discharging clinician: Samuel Stone Anticipated date of discharge: 05/31/17 - Constitutional Vitals: Temp Pulse Resp BP Pulse Ox 97.6 F 115 16 136/98 95 05/31/17 06:59 05/31/17 06:59 05/31/17 08:05 05/31/17 06:59 05/31/17 08:05 General appearance: Present: A&O X 3, no acute distress, answers questions appropriately - Respiratory Respiratory exam: Present: CTAB. Absent: accessory muscle use, rales, rhonchi, wheezes - Cardiovascular Cardiovascular exam: Present: RRR, +S1, +S2. Absent: diastolic murmur, gallop, rubs, systolic murmur - GI/Abdominal GI/Abdominal exam: Present: normal bowel sounds, soft, no peritoneal signs. Absent: distended, tenderness Additional comments: Minor drainage from MARILOU site. No active bleeding or pus. - Extremities Exam Extremities exam: Present: warm, radial pulses palpable and symmetrical. Absent : calf tenderness, cyanotic, pedal edema - Patient Status Overall status at discharge: patient is progressing back to baseline - Diet and Activity Activity: as per physical therapy Diet: advance to your usual diet
--- NOTE | 2017-05-31 13:28 | Physician Discharge Referral ---
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 For more information, call the [employer] Tobacco Quit Line at 0-480-MELW-NOW. - Diet/Nutrition Diet/Nutrition Orders: Cardiac Diet/Nutrition: List: Thin liquids. - Activity Activity Orders: Chair - Services Needed Following services are medically necessary services: Nursing, Home Health Aide, Physical Therapy - Transfer Medications Prescriptions: Amoxicillin/Clavulanate [Augmentin] 875 mg PO BIDWM #8 tablet Apixaban [Eliquis] 5 mg PO BID #60 tablet Home Medications: Levothyroxine [Synthroid] 25 mcg GTUBE QAM 02/22/17 [History] Aspirin [Lo-Dose Aspirin EC] 81 mg GTUBE DAILY 03/25/17 [History] Multivitamin [One Daily Multivitamin] 1 tab GTUBE DAILY 03/25/17 [History] Bisacodyl [Dulcolax] 10 mg RC DAILY #30 supp.rect 04/13/17 [Rx] Acetaminophen [Tylenol] 650 mg GTUBE Q4H PRN 05/27/17 [History] B Complex W-C No.20/Folic Acid [Nephrocaps Softgel] 1 mg GTUBE DAILY 05/27/17 [ History] Buspirone HCl [Buspar] 5 mg PO AD 05/27/17 [History] Gabapentin [Neurontin] 100 mg GTUBE TID 05/27/17 [History] GuaiFENesin/Dextromethorphan [Tussin Dm Syrup] 10 ml PO Q4H PRN 05/27/17 [ History] Ipratropium/Albuterol Neb [Duoneb] 3 ml IH Q4H PRN 05/27/17 [History] Loratadine [Claritin] 10 mg PO DAILY 05/27/17 [History] Lovastatin 40 mg GTUBE HS 05/27/17 [History] Melatonin 9 mg GTUBE HS PRN 05/27/17 [History] Methyl Salicylate/Menthol [Muscle Rub Cream] 1 appl TP Q6H PRN 05/27/17 [History ] Miconazole w/zinc oxide&karaya [Antifungal Extra Thick] 1 appl TP TID 05/27/17 [ History] Nystatin POWDER [Nystop] 1 appl TP BID PRN 05/27/17 [History] Pantoprazole Sodium [Protonix] 40 mg PO BID 05/27/17 [History] Polyethylene Glycol 3350 [MiraLAX] 17 gm GTUBE BID 05/27/17 [History] Sertraline [Zoloft] 50 mg PO DAILY 05/27/17 [History] Amoxicillin/Clavulanate [Augmentin] 875 mg PO BIDWM #8 tablet 05/31/17 [Rx] Apixaban [Eliquis] 5 mg PO BID #60 tablet 05/31/17 [Rx] Allergies/Adverse Reactions: 3 Allergy/AdvReac Type Severity Reaction Status Date / Time rosuvastatin [From Crestor] Allergy Hives Verified 03/24/17 20:46 Certification: Further, I certify that my clinical findings support that this patient is homebound (i.e. absences from home require considerable and taxing effort and are for medical reasons or protestant services or infrequently or short duration when for other reasons) because: Homebound Reason: Patient requires assistance of a person or device to safely leave home, Post-surgery restriction and or conditions limit ability to leave home, Leaving home requires considerable and taxing effort due to condition, Severity of cardiac or pulmonary status limits activity tolerance Attestation: My signature below is to certify that this patient is under my care and that I, or nurse practitioner, or a physician's library technical assistant working with me, has a face-to -face encounter with this patient.
[2017-05-31] MEDS: Multivit/Ca/Min/Fe/FA 1 TAB TABLET PO SCH (14:35)
[2017-05-31] MEDS: Gabapentin 100 MG CAPSULE PO SCH (14:38)
[2017-05-31] MEDS ORDERED: *HR* Warfarin 2 MG TABLET PO SCH (18:00)
== END 2017-05-31 16:10 | disposition home health service (06) | DRG 178 ==
LOC: 2NENU 13:57 → EMEROO 13:57 → 2NENU 19:50
PROVIDERS: ADMIT Internal Medicine; ATTEND Internal Medicine

== ENCOUNTER 2017-09-30 22:03 | Observation (INO) ==
[2017-09-30] MEDS ORDERED: Ondansetron 4 MG/2 ML VIAL IVP ONE (22:36)
[2017-09-30 22:43] LABS: Basophils # 0.1 K/mcL (0.0-0.2); Basophils % 0.5 %; Eosinophils # 0.2 K/mcL (0.0-0.6); Eosinophils % 1.3 %; Hematocrit 39.4 % (35.3-44.9); Hemoglobin 12.5 g/dL (11.5-15.4); Immature Granulocytes % 0.2 % (0-4); Lymphocytes # 2.2 K/mcL (0.6-4.6); Lymphocytes % 17.5 %; Mean Corpuscular HGB Conc 31.7 g/dL (31.6-35.5); Mean Corpuscular Volume 85.1 fL (83.0-100.0); Monocytes # 0.7 K/mcL (0.0-1.3); Neutrophils # 9.2 K/mcL (1.6-8.9); Platelet Count 268 K/mcL (140-400); Red Blood Count 4.63 M/mcL (3.82-4.97); Red Cell Distribution Width 15.9 % (11.5-14.5); Segmented Neutrophils % 74.5 %
[2017-09-30] MEDS ORDERED: Isovue-370 500 ML INFUS..BTL IV ONE (22:49)
[2017-09-30] MEDS ORDERED: *HR* FentaNYL (PF) 100 MCG/2 ML VIAL IVP ONE (22:50)
--- NOTE | 2017-09-30 22:50 | Emergency Department Note ---
Disposition Clinical Impression: Chest pain Qualifiers: Chest pain type: unspecified Qualified Code(s): R07.9 - Chest pain, unspecified Nausea and vomiting Qualifiers: Vomiting type: unspecified Vomiting Intractability: non-intractable Qualified Code(s): R11.2 - Nausea with vomiting, unspecified Disposition: Admitted As Inpatient Condition: Fair Referrals: Nilo Meier MD [Primary Care Provider] - Forms: ED Satisfaction Letter General Adult HPI - General Chief complaint: ED Chest Pain Stated complaint: chest pain,left arm pain got choked on food Time Seen by Provider: 09/30/17 22:23 Source: patient Limitations: no limitations Nursing Notes Reviewed: Yes Vital Signs Reviewed: Yes - History of Present Illness HPI Narrative: 81-year-old female presents emergency department with concern for left-sided chest pain. Patient was eating spaghetti. Patient states that she felt as if she did not get it all down, started having vomiting. After the vomiting, patient started having left-sided chest pain radiating to the left shoulder. Patient states that she had this feeling before when she had problems with her known hiatal hernia. She had received surgery afterwards. Patient states that she did not consume a little bit of water afterwards, but not much. Patient denies any fevers, chills. She denies any shortness of breath. Pain Scale: 10 - Related Data Home Medications Medication Instructions Recorded Confirmed Levothyroxine [Synthroid] 25 mcg GTUBE QAM 02/22/17 05/27/17 Aspirin [Lo-Dose Aspirin EC] 81 mg GTUBE DAILY 03/25/17 05/27/17 Multivitamin [One Daily 1 tab GTUBE DAILY 03/25/17 05/27/17 Multivitamin] Acetaminophen [Tylenol] 650 mg GTUBE Q4H PRN 05/27/17 05/27/17 B Complex W-C No.20/Folic Acid 1 mg GTUBE DAILY 05/27/17 05/27/17 [Nephrocaps Softgel] Buspirone HCl [Buspar] 5 mg PO AD 05/27/17 05/27/17 Gabapentin [Neurontin] 100 mg GTUBE TID 05/27/17 05/27/17 GuaiFENesin/Dextromethorphan 10 ml PO Q4H PRN 05/27/17 05/27/17 [Tussin Dm Syrup] Ipratropium/Albuterol Neb [Duoneb] 3 ml IH Q4H PRN 05/27/17 05/27/17 Loratadine [Claritin] 10 mg PO DAILY 05/27/17 05/27/17 Lovastatin 40 mg GTUBE HS 05/27/17 05/27/17 Melatonin 9 mg GTUBE HS PRN 05/27/17 05/27/17 Methyl Salicylate/Menthol [Muscle 1 appl TP Q6H PRN 05/27/17 05/27/17 Rub Cream] Miconazole w/zinc oxide&karaya 1 appl TP TID 05/27/17 05/27/17 [Antifungal Extra Thick] Nystatin POWDER [Nystop] 1 appl TP BID PRN 05/27/17 05/27/17 Pantoprazole Sodium [Protonix] 40 mg PO BID 05/27/17 05/27/17 Polyethylene Glycol 3350 [MiraLAX] 17 gm GTUBE BID 05/27/17 05/27/17 Sertraline [Zoloft] 50 mg PO DAILY 05/27/17 05/27/17 Previous Rx's Medication Instructions Recorded Bisacodyl [Dulcolax] 10 mg RC DAILY #30 supp.rect 04/13/17 Amoxicillin/Clavulanate [Augmentin] 875 mg PO BIDWM #8 tablet 05/31/17 Apixaban [Eliquis] 5 mg PO BID #60 tablet 05/31/17 Allergies Allergy/AdvReac Type Severity Reaction Status Date / Time rosuvastatin [From Crestor] Allergy Hives Verified 09/30/17 22:08 All systems ED: reviewed and negative except as stated. Review of Systems: As Per HPI Constitutional: Denies: fever, chills Cardiovascular: Reports: chest pain Respiratory: Denies: cough, dyspnea Gastrointestinal: Reports: abdominal pain, nausea, vomiting Genitourinary: Denies: urgency, dysuria, frequency Musculoskeletal: Denies: back pain, neck pain Integumentary: Denies: rash Endocrine: Denies: fatigue Past Medical History - Past Medical History Medical history: Reports: arthritis, coronary artery disease, DVT, GERD, hyperlipidemia, hypertension, myocardial infarction, thyroid disease, other Surgical history: Reports: DARLENE/BSO, other Psychiatric history: Reports: anxiety, depression, panic disorder - Social History Smoking Status: Never smoker Smokeless Tobacco Status: No Alcohol use: Reports: none Drug use: Reports: none Physical Exam - General Limitations: no limitations General appearance: alert - Head Head exam: normocephalic - Eye Eye exam: Present: EOMI - ENT ENT exam: normal oropharynx - Neck Neck exam: Present: trachea midline - Chest Chest inspection: Present: symmetric chest wall rise - Respiratory Respiratory exam: Present: normal lung sounds bilaterally. Absent: respiratory distress, accessory muscle use - Cardiovascular Cardiovascular exam: Present: normal rhythm - Abdominal Exam Abdominal exam: Present: soft, Non-Tender. Absent: distention, guarding, rebound, rigidity - Extremities Exam Extremities exam: Present: normal capillary refill - Back Exam Back exam: Absent: CVA tenderness (R), CVA tenderness (L) - Neurological Exam Neurological exam: Present: alert, oriented X3 - Psychiatric Psychiatric exam: Present: normal affect, normal mood - Skin Skin exam: Present: warm, dry, intact, normal color Course Vital Signs Temperature 98.3 F 09/30/17 22:04 Pulse Rate 113 09/30/17 22:04 Respiratory Rate 20 09/30/17 22:04 Blood Pressure 184/110 09/30/17 22:04 O2 Sat by Pulse Oximetry 97 09/30/17 22:04 Temperature 98.3 F 09/30/17 22:04 Pulse Rate 109 09/30/17 22:47 Respiratory Rate 16 09/30/17 22:47 Blood Pressure 166/90 09/30/17 22:47 O2 Sat by Pulse Oximetry 93 09/30/17 22:47 Oxygen Delivery Oxygen Delivery Room Air Medical Decision Making - [facility] Narrative Medical decision making narrative: 81 year old female presented to emergency department with concern for chest pain and nausea vomiting after eating a meal in the setting of having a known hiatal hernia. We are obtaining a chest CT with Gastrografin to rule out esophageal rupture. We will also obtain EKG. No ischemic ST changes. Chest x- ray was normal. Troponin was within normal limits. Patient had a mildly elevated BNP at 183, but it has been higher in the past. Chest x-ray did not reveal any pleural effusions or cardiomegaly or physical exam did not reveal any rales. Troponin was negative. CT of chest that was obtained concerning for esophagitis. No esophageal perforation. Patient was able to tolerate Gastrografin swallow. Patient was still having mild residual chest pain. We will order nitroglycerin trial. Spoke with the hospitalist negative except patient for admission. Discussed aspirin administration in setting of esophagitis. He stated to go ahead and provide it. Patient name and medically stable not in any acute distress at time of admission to the hospitalist. Family agrees with plan for admission for chest pain observation in setting of esophagitis as she has a lot of risk factors for ACS. Chest X-Ray 09/30/17 22:23 IMPRESSION: Negative portable chest. D/ / Herson Ayers MD / Herson Ayers MD Interpreting Provider: Herson Ayers MD Chest CT 09/30/17 22:49 IMPRESSION: There is edema with wall thickening involving the distal esophagus, hiatal hernia and GE junction with no findings to suggest esophageal perforation. There was no extravasation of the ingested contrast and there is no extraluminal air. D/ / Jan Sharp MD / Jan Sharp MD Interpreting Provider: Jan Sharp MD Chest X-Ray 09/30/17 22:23 IMPRESSION: Negative portable chest. D/ / Herson Ayers MD / Herson Ayers MD Interpreting Provider: Herson Ayers MD Vital Signs Temperature 98.3 F 09/30/17 22:04 Pulse Rate 113 09/30/17 22:04 Respiratory Rate 20 09/30/17 22:04 Blood Pressure 184/110 09/30/17 22:04 O2 Sat by Pulse Oximetry 97 09/30/17 22:04 Temperature 98.3 F 09/30/17 22:04 Pulse Rate 109 09/30/17 22:47 Respiratory Rate 16 09/30/17 22:47 Blood Pressure 166/90 09/30/17 22:47 O2 Sat by Pulse Oximetry 93 09/30/17 22:47 Oxygen Delivery Oxygen Delivery Room Air - Lab Data Result diagrams: 09/30/17 22:33 09/30/17 22:33 Lab Results 09/30/17 09/30/17 09/30/17 Range/Units 22:23 22:26 22:33 WBC 12.3 H (4.3-11.1) K/mcL RBC 4.63 (3.82-4.97) M/mcL Hgb 12.5 (11.5-15.4) g/dL Hct 39.4 (35.3-44.9) % MCV 85.1 (83.0-100.0) fL MCH 27.0 L (28.0-33.3) pg MCHC 31.7 (31.6-35.5) g/dL RDW 15.9 H (11.5-14.5) % Plt Count 268 (140-400) K/mcL MPV 10.0 (9.4-12.4) fL Immature Gran % 0.2 (0-4) % Seg Neutrophils % 74.5 % Lymphocytes % 17.5 % Monocytes % 6.0 % Eosinophils % 1.3 % Basophils % 0.5 % Neutrophils # 9.2 H (1.6-8.9) K/mcL Lymphocytes # 2.2 (0.6-4.6) K/mcL Monocytes # 0.7 (0.0-1.3) K/mcL Eosinophils # 0.2 (0.0-0.6) K/mcL Basophils # 0.1 (0.0-0.2) K/mcL PT 11.1 (9.4-12.1) Seconds INR 1.0 APTT 32.0 (26.0-36.0) Seconds Sodium (136-145) mEq/L Potassium (3.5-5.1) mEq/L Chloride (98-107) mEq/L Carbon Dioxide (23-29) mEq/L BUN (8-23) mg/dL Creatinine (0.60-1.20) mg/dL Est GFR ( Amer) (> 60) Est GFR (Non-Af Amer) (> 60) BUN/Creatinine Ratio (6-26) Glucose (70-105) mg/dL Calculated Osmolality (280-300) Calcium (8.6-10.3) mg/dL Troponin I (< 0.04) ng/mL B-Natriuretic Peptide 182 H (Less than 100) pg/mL 09/30/17 Range/Units 22:33 WBC (4.3-11.1) K/mcL RBC (3.82-4.97) M/mcL Hgb (11.5-15.4) g/dL Hct (35.3-44.9) % MCV (83.0-100.0) fL MCH (28.0-33.3) pg MCHC (31.6-35.5) g/dL RDW (11.5-14.5) % Plt Count (140-400) K/mcL MPV (9.4-12.4) fL Immature Gran % (0-4) % Seg Neutrophils % % Lymphocytes % % Monocytes % % Eosinophils % % Basophils % % Neutrophils # (1.6-8.9) K/mcL Lymphocytes # (0.6-4.6) K/mcL Monocytes # (0.0-1.3) K/mcL Eosinophils # (0.0-0.6) K/mcL Basophils # (0.0-0.2) K/mcL PT (9.4-12.1) Seconds INR APTT (26.0-36.0) Seconds Sodium 138 (136-145) mEq/L Potassium 4.2 (3.5-5.1) mEq/L Chloride 103 (98-107) mEq/L Carbon Dioxide 24 (23-29) mEq/L BUN 16 (8-23) mg/dL Creatinine 0.94 (0.60-1.20) mg/dL Est GFR ( Amer) > 60 (> 60) Est GFR (Non-Af Amer) 57 L (> 60) BUN/Creatinine Ratio 17 (6-26) Glucose 127 H (70-105) mg/dL Calculated Osmolality 289 (280-300) Calcium 9.7 (8.6-10.3) mg/dL Troponin I < 0.03 (< 0.04) ng/mL B-Natriuretic Peptide (Less than 100) pg/mL - EKG Data EKG #1 EKG attestation: Yes I reviewed and interpreted this EKG. EKG results narrative: 22:11 Ventricular rate 90 bpm, [place] 178 ms, QRS duration 84 ms, QT 326 months seconds, QTC 381 ms, left axis deviation. Sinus rhythm with some premature atrial complexes. No evidence of any ischemic ST changes.
[2017-09-30 22:51] LABS: Prothrombin Time 11.1 Seconds (9.4-12.1)
[2017-09-30 23:09] LABS: BUN/Creatinine Ratio 17 (6-26); Blood Urea Nitrogen 16 mg/dL (8-23); Calcium 9.7 mg/dL (8.6-10.3); Carbon Dioxide 24 mEq/L (23-29); Chloride 103 mEq/L (98-107); Glucose 127 mg/dL (70-105); Osmolality,Calculated 289 (280-300); Potassium 4.2 mEq/L (3.5-5.1); Sodium 138 mEq/L (136-145); eGFR For Non-African Americans 57 (> 60)
[2017-09-30 23:10] LABS: Troponin I < 0.03 ng/mL (< 0.04)
--- NOTE | 2017-10-01 | Emergency Department Note ---
Disposition Clinical Impression: Chest pain, Nausea and vomiting Disposition: Still a Patient Condition: Fair Referrals: Nilo Meier MD [Partnered Physician] - Forms: ED Satisfaction Letter Chest Pain HPI - General Chief Complaint: ED Chest Pain Stated Complaint: chest pain,left arm pain got choked on food Time Seen by Provider: 09/30/17 22:23 Source: patient Mode of arrival: ambulatory Limitations: no limitations Vital Signs Reviewed: Yes Nursing Notes Reviewed: Yes - History of Present Illness Severity scale (1-10): 10 - Related Data Home Medications Medication Instructions Recorded Confirmed Levothyroxine [Synthroid] 25 mcg GTUBE QAM 02/22/17 05/27/17 Aspirin [Lo-Dose Aspirin EC] 81 mg GTUBE DAILY 03/25/17 05/27/17 Multivitamin [One Daily 1 tab GTUBE DAILY 03/25/17 05/27/17 Multivitamin] Acetaminophen [Tylenol] 650 mg GTUBE Q4H PRN 05/27/17 05/27/17 B Complex W-C No.20/Folic Acid 1 mg GTUBE DAILY 05/27/17 05/27/17 [Nephrocaps Softgel] Buspirone HCl [Buspar] 5 mg PO AD 05/27/17 05/27/17 Gabapentin [Neurontin] 100 mg GTUBE TID 05/27/17 05/27/17 GuaiFENesin/Dextromethorphan 10 ml PO Q4H PRN 05/27/17 05/27/17 [Tussin Dm Syrup] Ipratropium/Albuterol Neb [Duoneb] 3 ml IH Q4H PRN 05/27/17 05/27/17 Loratadine [Claritin] 10 mg PO DAILY 05/27/17 05/27/17 Lovastatin 40 mg GTUBE HS 05/27/17 05/27/17 Melatonin 9 mg GTUBE HS PRN 05/27/17 05/27/17 Methyl Salicylate/Menthol [Muscle 1 appl TP Q6H PRN 05/27/17 05/27/17 Rub Cream] Miconazole w/zinc oxide&karaya 1 appl TP TID 05/27/17 05/27/17 [Antifungal Extra Thick] Nystatin POWDER [Nystop] 1 appl TP BID PRN 05/27/17 05/27/17 Pantoprazole Sodium [Protonix] 40 mg PO BID 05/27/17 05/27/17 Polyethylene Glycol 3350 [MiraLAX] 17 gm GTUBE BID 05/27/17 05/27/17 Sertraline [Zoloft] 50 mg PO DAILY 05/27/17 05/27/17 Previous Rx's Medication Instructions Recorded Bisacodyl [Dulcolax] 10 mg RC DAILY #30 supp.rect 04/13/17 Amoxicillin/Clavulanate [Augmentin] 875 mg PO BIDWM #8 tablet 05/31/17 Apixaban [Eliquis] 5 mg PO BID #60 tablet 05/31/17 Allergies Allergy/AdvReac Type Severity Reaction Status Date / Time rosuvastatin [From Crestor] Allergy Hives Verified 09/30/17 22:08 Chest Pain PMH - Past Medical History Medical history: Reports: arthritis, coronary artery disease, DVT, GERD, hyperlipidemia, hypertension, myocardial infarction, thyroid disease, other Surgical history: Reports: DARLENE/BSO, other Psychiatric history: Reports: anxiety, depression, panic disorder - Social History Smoking Status: Never smoker Alcohol use: Reports: none Drug use: Reports: none Physical Exam - General Limitations: no limitations General appearance: alert Course Vital Signs Temperature 98.3 F 09/30/17 22:04 Pulse Rate 113 09/30/17 22:04 Respiratory Rate 20 09/30/17 22:04 Blood Pressure 184/110 09/30/17 22:04 O2 Sat by Pulse Oximetry 97 09/30/17 22:04 Temperature 98.3 F 09/30/17 22:04 Pulse Rate 109 09/30/17 22:47 Respiratory Rate 16 09/30/17 22:47 Blood Pressure 166/90 09/30/17 22:47 O2 Sat by Pulse Oximetry 93 09/30/17 22:47 Oxygen Delivery Oxygen Delivery Room Air Chest Pain - Lab Data Result diagrams: 09/30/17 22:33 09/30/17 22:33 Lab Results 09/30/17 09/30/17 09/30/17 Range/Units 22:23 22:26 22:33 WBC 12.3 H (4.3-11.1) K/mcL RBC 4.63 (3.82-4.97) M/mcL Hgb 12.5 (11.5-15.4) g/dL Hct 39.4 (35.3-44.9) % MCV 85.1 (83.0-100.0) fL MCH 27.0 L (28.0-33.3) pg MCHC 31.7 (31.6-35.5) g/dL RDW 15.9 H (11.5-14.5) % Plt Count 268 (140-400) K/mcL MPV 10.0 (9.4-12.4) fL Immature Gran % 0.2 (0-4) % Seg Neutrophils % 74.5 % Lymphocytes % 17.5 % Monocytes % 6.0 % Eosinophils % 1.3 % Basophils % 0.5 % Neutrophils # 9.2 H (1.6-8.9) K/mcL Lymphocytes # 2.2 (0.6-4.6) K/mcL Monocytes # 0.7 (0.0-1.3) K/mcL Eosinophils # 0.2 (0.0-0.6) K/mcL Basophils # 0.1 (0.0-0.2) K/mcL PT 11.1 (9.4-12.1) Seconds INR 1.0 APTT 32.0 (26.0-36.0) Seconds Sodium (136-145) mEq/L Potassium (3.5-5.1) mEq/L Chloride (98-107) mEq/L Carbon Dioxide (23-29) mEq/L BUN (8-23) mg/dL Creatinine (0.60-1.20) mg/dL Est GFR ( Amer) (> 60) Est GFR (Non-Af Amer) (> 60) BUN/Creatinine Ratio (6-26) Glucose (70-105) mg/dL Calculated Osmolality (280-300) Calcium (8.6-10.3) mg/dL Troponin I (< 0.04) ng/mL B-Natriuretic Peptide 182 H (Less than 100) pg/mL 09/30/17 Range/Units 22:33 WBC (4.3-11.1) K/mcL RBC (3.82-4.97) M/mcL Hgb (11.5-15.4) g/dL Hct (35.3-44.9) % MCV (83.0-100.0) fL MCH (28.0-33.3) pg MCHC (31.6-35.5) g/dL RDW (11.5-14.5) % Plt Count (140-400) K/mcL MPV (9.4-12.4) fL Immature Gran % (0-4) % Seg Neutrophils % % Lymphocytes % % Monocytes % % Eosinophils % % Basophils % % Neutrophils # (1.6-8.9) K/mcL Lymphocytes # (0.6-4.6) K/mcL Monocytes # (0.0-1.3) K/mcL Eosinophils # (0.0-0.6) K/mcL Basophils # (0.0-0.2) K/mcL PT (9.4-12.1) Seconds INR APTT (26.0-36.0) Seconds Sodium 138 (136-145) mEq/L Potassium 4.2 (3.5-5.1) mEq/L Chloride 103 (98-107) mEq/L Carbon Dioxide 24 (23-29) mEq/L BUN 16 (8-23) mg/dL Creatinine 0.94 (0.60-1.20) mg/dL Est GFR ( Amer) > 60 (> 60) Est GFR (Non-Af Amer) 57 L (> 60) BUN/Creatinine Ratio 17 (6-26) Glucose 127 H (70-105) mg/dL Calculated Osmolality 289 (280-300) Calcium 9.7 (8.6-10.3) mg/dL Troponin I < 0.03 (< 0.04) ng/mL B-Natriuretic Peptide (Less than 100) pg/mL Attestation Statement - Attestation Attestation: I, Sarmad Reese, examined this patient and my medical decision-making was reviewed with the PLUMBING INSTALLER/PA/Advanced Practice Nurse/Resident Physician. I agree with the documented findings, disposition and treatment plan as described except to the extent set forth below. 81-year-old female presents emergency Department with concerns of chest pain. Patient states she was eating spaghetti that did not have any large solid components, she became nauseated and started vomiting. Patient developed chest pain after this. Patient has a history of MD. She stated she had some mild diaphoresis with vomiting however she is not diaphoretic in the ED. Patient continues to have pain in the emergency department which is described as sternal and radiating to the left neck. She denies palpitations or near- syncope. Patient denies fever, chills, abdominal pain, diarrhea, melena, hematochezia. Emesis was described as nonbloody and nonbilious and was comprised of food she had just eaten. We will evaluate for possible cardiac etiology of her chest pain secondary to her high risk history. We will also obtain a CT of the chest to further evaluate for possible esophageal rupture secondary to pain after vomiting. Patient will likely be admitted to the hospital for further care and evaluation. Imaging studies pending at this time.
[2017-10-01] MEDS ORDERED: Nitroglycerin 0.4 MG TAB.SUBL SL PRN (00:32)
[2017-10-01] MEDS ORDERED: Aspirin 81 MG TAB.CHEW PO ONE (00:32)
[2017-10-01] MEDS ORDERED: 0.9 % Sodium Chloride 1,000 ML IVC ONE (00:34)
[2017-10-01] MEDS ORDERED: Naloxone 0.4 MG/ML INJ IVP PRN (08:43)
[2017-10-01] MEDS ORDERED: Mag Hydrox/Al Hydrox/Simeth 30 ML UDC PO PRN (08:45)
[2017-10-01] MEDS ORDERED: Levothyroxine 25 MCG TABLET PO SCH (09:00)
[2017-10-01] MEDS ORDERED: Apixaban 5 MG TABLET PO SCH (09:00)
[2017-10-01] MEDS ORDERED: Aspirin Enteric Coated 81 MG Tablet PO SCH (09:00)
[2017-10-01 09:21] LABS: Hematocrit 35.2 % (35.3-44.9); Hemoglobin 11.1 g/dL (11.5-15.4); Immature Granulocytes % 0.4 % (0-4); Mean Corpuscular HGB Conc 31.5 g/dL (31.6-35.5); Mean Corpuscular Hemoglobin 27.3 pg (28.0-33.3); Mean Corpuscular Volume 86.5 fL (83.0-100.0); Mean Platelet Volume 9.8 fL (9.4-12.4); Monocytes % 8.9 %; Platelet Count 209 K/mcL (140-400); Red Blood Count 4.07 M/mcL (3.82-4.97); Red Cell Distribution Width 15.7 % (11.5-14.5); Segmented Neutrophils % 58.8 %
[2017-10-01 09:22] LABS: Basophils # 0.1 K/mcL (0.0-0.2); Basophils % 0.7 %; Eosinophils # 0.2 K/mcL (0.0-0.6); Eosinophils % 2.2 %; Lymphocytes # 2.3 K/mcL (0.6-4.6); Monocytes # 0.7 K/mcL (0.0-1.3); Neutrophils # 4.7 K/mcL (1.6-8.9)
--- NOTE | 2017-10-01 09:34 | Internal Med History&Physical ---
Date of Encounter: 10/01/17 Time of Encounter: 08:30 Internal Medicine - H&P: HPI Chief complaint: Chest pain Admitted From: Home Plans for Post Hospital Care: Home History of present illness: Ms. Leach is a 81 year old female with a past medical history of hiatal hernia, prior history of DVT on anticoagulation who presented with chest pain which started substernally right around dinnertime when she was eating spaghetti. Patient states that this was a sharp pain which radiated back as well as went up to her neck and left arm. This was associated with food regurgitating. She states that she is usually very active and walks in her garden on a regular basis. She also has no problems navigating the steps and does not feel winded. She denies any shortness of breath during this episode. She feels that there were no aggravating or relieving factors and the pain lasted for about 2-3 hours by the which time she came to the ED. In the ER she underwent a CT scan to rule out esophageal rupture which was negative she also had no ischemic changes on her cardiac monitoring or her EKG and first set of troponins was negative and she is been placed on observation floor for rule out of acute coronary syndrome. She denies any nausea or vomiting and this point and does not have any diarrhea or constipation. Her pain is completely gone and she would like to try diet at this time. Past Med Surg Social Fam HX - Past Medical History Medical history: arthritis, coronary artery disease, DVT, GERD, hyperlipidemia, hypertension, myocardial infarction, thyroid disease, other Additional medical history: kaylee randall 2009 Psychiatric history: anxiety, depression, panic disorder - Past Surgical History Surgical History: DARLENE/BSO, other Additional surgical history: left ankle pins. hiatal hernia. gastric/ esophageal surgery - Social History Smoking Status: Never smoker Smokeless Tobacco Status: No Alcohol use: none Drug use: none - Family History Father Living Status: Mother Living Status: Internal Medicine - H&P: Meds Levothyroxine [Synthroid] 25 mcg GTUBE QAM 02/22/17 [History] Aspirin [Lo-Dose Aspirin EC] 81 mg GTUBE DAILY 03/25/17 [History] Multivitamin [One Daily Multivitamin] 1 tab GTUBE DAILY 03/25/17 [History] Bisacodyl [Dulcolax] 10 mg RC DAILY #30 supp.rect 02/06/18 [Rx] Acetaminophen [Tylenol] 650 mg GTUBE Q4H PRN 05/27/17 [History] B Complex W-C No.20/Folic Acid [Nephrocaps Softgel] 1 mg GTUBE DAILY 05/27/17 [ History] Buspirone HCl [Buspar] 5 mg PO AD 05/27/17 [History] Gabapentin [Neurontin] 100 mg GTUBE TID 05/27/17 [History] GuaiFENesin/Dextromethorphan [Tussin Dm Syrup] 10 ml PO Q4H PRN 05/27/17 [ History] Ipratropium/Albuterol Neb [Duoneb] 3 ml IH Q4H PRN 05/27/17 [History] Loratadine [Claritin] 10 mg PO DAILY 05/27/17 [History] Lovastatin 40 mg GTUBE HS 05/27/17 [History] Melatonin 9 mg GTUBE HS PRN 05/27/17 [History] Methyl Salicylate/Menthol [Muscle Rub Cream] 1 appl TP Q6H PRN 05/27/17 [History ] Miconazole w/zinc oxide&karaya [Antifungal Extra Thick] 1 appl TP TID 05/27/17 [ History] Nystatin POWDER [Nystop] 1 appl TP BID PRN 05/27/17 [History] Pantoprazole Sodium [Protonix] 40 mg PO BID 05/27/17 [History] Polyethylene Glycol 3350 [MiraLAX] 17 gm GTUBE BID 05/27/17 [History] Sertraline [Zoloft] 50 mg PO DAILY 05/27/17 [History] Amoxicillin/Clavulanate [Augmentin] 875 mg PO BIDWM #8 tablet 05/31/17 [Rx] Apixaban [Eliquis] 5 mg PO BID #60 tablet 05/31/17 [Rx] 3 Allergy/AdvReac Type Severity Reaction Status Date / Time rosuvastatin [From Crestor] Allergy Hives Verified 09/30/17 22:08 All Systems PM: A 10-system review of systems was performed and is negative for pertinent findings except as documented above in the HPI. - Constitutional Vitals: Temp Pulse Resp BP Pulse Ox 98.5 F 68 16 111/56 95 10/01/17 06:55 10/01/17 06:55 10/01/17 06:55 10/01/17 06:55 10/01/17 06:55 Exam: GENERAL: Alert, no distress, cooperative EYES: PERRLA, EOMI EARS: External ears normal, canals clear OROPHARYNX: Lips, mucosa, and tongue normal. Teeth and gums normal. Oropharynx normal. NECK: No jugulovenous distention, No carotid bruits, Carotid pulse normal contour, Supple LUNGS: Lungs clear to auscultation, Good diaphragmatic excursion CARDIAC: Normal S1 and S2; no rubs, murmurs, or gallops ABDOMEN: Abdomen soft, non-tender, BS normal, No masses or organomegaly EXTREMITIES: Extremities normal, no deformities, edema, clubbing or skin discoloration. Good capillary refill., No ulcers NEURO: Gait normal. Reflexes normal and symmetric. Sensation grossly intact, Cranial nerves II-XII intact PULSES: 2+ radial, 2+ carotid Rest of the exam is non contributory Internal Med - H&P Results - Labs CBC & Chem 7: 10/01/17 09:11 09/30/17 22:33 Labs: Short CBC 10/01/17 Range/Units 09:11 WBC 8.1 (4.3-11.1) K/mcL Hgb 11.1 L (11.5-15.4) g/dL Hct 35.2 L (35.3-44.9) % Plt Count 209 (140-400) K/mcL Neutrophils # 4.7 (1.6-8.9) K/mcL Cardiac Enzymes 10/01/17 Range/Units 05:26 Troponin I < 0.03 (< 0.04) ng/mL - Assessment and plan (1) Chest pain Current Visit: Yes Status: Acute Assessment and plan: Chest pain most likely due to gastroesophageal reflux disease versus gastritis versus ruling out acute coronary syndrome. Patient does have a set of her hiatal hernia and has recently started having this chest discomfort. Her history is more classic for GERD-type pain. I will place her on a PPI and give her Maalox when necessary. I was to complete her cardiac workup with a cardiac enzyme. Her EKG is not suggestive of acute ischemia and if her sore cardiac status enzyme is negative then she can be advanced to a regular diet telemetry monitoring for now Continue baby aspirin. Consider PPI for discharge Qualifiers: Chest pain type: precordial pain Qualified Code(s): R07.2 - Precordial pain (2) History of DVT (deep vein thrombosis) Current Visit: Yes Status: Acute Assessment and plan: Continue anticoagulation (3) Hypertension Current Visit: No Status: Chronic Assessment and plan: Resume home medications and continue to monitor while on the floor. Qualifiers: Hypertension type: essential hypertension Qualified Code(s): I10 - Essential (primary) hypertension - Time Spent With Patient Total time spent is greater than 50% in coordination of care (as documented) at patient's floor/unit and/or counseling patient: Greater than 35 minutes
[2017-10-01 09:48] LABS: Troponin I < 0.03 ng/mL (< 0.04)
[2017-10-01 09:49] LABS: Alanine Aminotransferase 8 Units/L (7-52); Albumin 3.3 g/dL (3.5-5.7); Albumin/Globulin Ratio 1.1 (1.1-2.2); Alkaline Phosphatase 74 Units/L (34-104); Aspartate Amino Transferase 19 Units/L (13-39); BUN/Creatinine Ratio 15 (6-26); Bilirubin,Total 0.4 mg/dL (0.3-1.0); Blood Urea Nitrogen 15 mg/dL (8-23); Calcium 9.4 mg/dL (8.6-10.3); Carbon Dioxide 27 mEq/L (23-29); Chloride 106 mEq/L (98-107); Globulin 2.9 g/dL (2.4-3.5); Glucose 96 mg/dL (70-105); Osmolality,Calculated 289 (280-300); Potassium 4.6 mEq/L (3.5-5.1); Sodium 139 mEq/L (136-145); Total Protein 6.2 g/dL (6.4-8.9); eGFR For Non-African Americans 55 (> 60)
[2017-10-01] MEDS: Gabapentin 100 MG CAPSULE GTUBE SCH ×2 (10:02→15:52)
--- NOTE | 2017-10-01 16:18 | Discharge Summary ---
- NOTES TO OUTPATIENT PROVIDER Notes to Outpatient Provider: Patient has syptomatic Hiatal hernia and also borderline HTN. She needs to be followed up for these issues Date of Encounter: 10/01/17 Time of Encounter: 16:15 - Discharge Diagnosis (1) Chest pain Priority: Primary Status: Acute Qualifiers: Chest pain type: precordial pain Qualified Code(s): R07.2 - Precordial pain (2) History of DVT (deep vein thrombosis) Priority: Secondary Status: Acute (3) Hypertension Priority: Secondary Status: Chronic Qualifiers: Hypertension type: essential hypertension Qualified Code(s): I10 - Essential (primary) hypertension Hospital course: Ms. Leach is a 81 year old female who was placed in Obs for chest pain r/o ACS> she had negative EKG findings and serial trop x3. Her symptoms improved significantly after Rx for GERD. She does have HH on CT imaging and should be on OTC daily PPI atleast for a short term. She has been instructed to see her PCP in 1 week time. SHe did have few High BP numbers but no new meds were started. She has been asked to kep a diary of her BP readings and share with PCP > There was atleast an 8 hour period between her admissiona and Discharge Discharge discussed with: patient - Time Spent with Patient Total time spent providing and/or coordinating discharge services: Greater than 30 minutes - Discharge Medications Prescriptions: Omeprazole Magnesium [Prilosec Otc] 20 mg PO DAILY 30 Days #30 tablet. Home Medications: Levothyroxine [Synthroid] 25 mcg GTUBE QAM 02/22/17 [History] Aspirin [Lo-Dose Aspirin EC] 81 mg GTUBE DAILY 03/25/17 [History] Multivitamin [One Daily Multivitamin] 1 tab GTUBE DAILY 03/25/17 [History] Bisacodyl [Dulcolax] 10 mg RC DAILY #30 supp.rect 04/13/17 [Rx] Acetaminophen [Tylenol] 650 mg GTUBE Q4H PRN 05/27/17 [History] B Complex W-C No.20/Folic Acid [Nephrocaps Softgel] 1 mg GTUBE DAILY 05/27/17 [ History] Buspirone HCl [Buspar] 5 mg PO AD 05/27/17 [History] Gabapentin [Neurontin] 100 mg GTUBE TID 05/27/17 [History] GuaiFENesin/Dextromethorphan [Tussin Dm Syrup] 10 ml PO Q4H PRN 05/27/17 [ History] Ipratropium/Albuterol Neb [Duoneb] 3 ml IH Q4H PRN 05/27/17 [History] Loratadine [Claritin] 10 mg PO DAILY 05/27/17 [History] Lovastatin 40 mg GTUBE HS 05/27/17 [History] Melatonin 9 mg GTUBE HS PRN 05/27/17 [History] Methyl Salicylate/Menthol [Muscle Rub Cream] 1 appl TP Q6H PRN 05/27/17 [History ] Miconazole w/zinc oxide&karaya [Antifungal Extra Thick] 1 appl TP TID 05/27/17 [ History] Nystatin POWDER [Nystop] 1 appl TP BID PRN 05/27/17 [History] Pantoprazole Sodium [Protonix] 40 mg PO BID 05/27/17 [History] Polyethylene Glycol 3350 [MiraLAX] 17 gm GTUBE BID 05/27/17 [History] Sertraline [Zoloft] 50 mg PO DAILY 05/27/17 [History] Apixaban [Eliquis] 5 mg PO BID #60 tablet 05/31/17 [Rx] Omeprazole Magnesium [Prilosec Otc] 20 mg PO DAILY 30 Days #30 tablet. [Rx] Allergies/Adverse Reactions: 3 Allergy/AdvReac Type Severity Reaction Status Date / Time rosuvastatin [From Crestor] Allergy Hives Verified 09/30/17 22:08 Date of admission: 10/01/17 01:23 Primary care physician: Nilo Meier MD Consults: 10/01/17 02:20 Consult to Aesthetics Instructor [CONS] Routine Reason for SW Consult: Continuation of home health services. - Constitutional Vitals: Temp Pulse Resp BP Pulse Ox 98.5 F 76 16 173/96 97 10/01/17 15:26 10/01/17 15:26 10/01/17 15:26 10/01/17 15:26 10/01/17 15:26 Exam: CTA B S1S2N no MRG ABodomen- S NT ND - Patient Status Disposition: Home, Self-Care Condition: Good Functional capacity at discharge: independent ambulation Overall status at discharge: patient is back to baseline - Discharge Instructions Follow Up With: Nilo Meier MD [Primary Care Provider] - - Diet and Activity Activity: increase activity as tolerated Diet: advance to your usual diet
[2017-10-01 16:19] VITALS: BP 138/75
--- NOTE | 2017-10-01 16:36 | Electrocardiograph Report ---
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
== END 2017-10-01 17:28 | disposition home or self-care (01) ==
LOC: EMEROO 22:03 → 2NENU 22:03
PROVIDERS: ADMIT Family Medicine; ATTEND Family Medicine

== ENCOUNTER 2021-06-26 15:30 | Inpatient (IN) ==
[2021-06-26 18:04] LABS: Potassium 4.8 mEq/L (3.5-5.1)
[2021-06-26] MEDS ORDERED: Ondansetron 4 MG/2 ML VIAL IVP ONE (18:31)
[2021-06-26] MEDS ORDERED: Isovue-370 500 ML BOTTLE IVP ONE (18:31)
[2021-06-26] MEDS: 0.9 % Sodium Chloride 1,000 ML IVC SCH (19:10)
[2021-06-26 19:11] LABS: Basophils # 0.1 K/mcL (0.0-0.2); Basophils % 0.6 %; Eosinophils % 0.3 %; Hematocrit 52.3 % (35.3-44.9); Hemoglobin 16.5 g/dL (11.5-15.4); Immature Granulocytes % 0.1 % (0-4); Lymphocytes # 2.2 K/mcL (0.6-4.6); Lymphocytes % 24.6 %; Mean Corpuscular HGB Conc 31.5 g/dL (31.6-35.5); Mean Corpuscular Hemoglobin 28.3 pg (28.0-33.3); Mean Corpuscular Volume 89.7 fL (83.0-100.0); Mean Platelet Volume 9.6 fL (9.4-12.4); Monocytes # 0.6 K/mcL (0.0-1.3); Monocytes % 6.8 %; Neutrophils # 6.1 K/mcL (1.6-8.9); Platelet Count 259 K/mcL (140-400); Red Blood Count 5.83 M/mcL (3.82-4.97); Red Cell Distribution Width 14.1 % (11.5-14.5); Segmented Neutrophils % 67.6 %
[2021-06-26 19:33] LABS: Albumin 4.2 g/dL (3.5-5.7); Albumin/Globulin Ratio 1.1 (1.1-2.2); Bilirubin,Direct 0.1 mg/dL (0.0-0.2); Bilirubin,Indirect 0.5 mg/dL (0.0-1.0); Bilirubin,Total 0.6 mg/dL (0.3-1.0); Globulin 3.8 g/dL (2.4-3.5)
[2021-06-26] MEDS ORDERED: Naloxone 0.4 MG/ML INJ IVP PRN (20:40)
[2021-06-27] MEDS: Pantoprazole 40 MG VIAL IVP SCH ×2 (00:38→08:47)
[2021-06-27] MEDS: 0.9 % Sodium Chloride 1,000 ML IVC SCH ×2 (04:07→15:44)
[2021-06-27 05:40] LABS: Hematocrit 50.3 % (35.3-44.9); Hemoglobin 15.9 g/dL (11.5-15.4); Mean Corpuscular HGB Conc 31.6 g/dL (31.6-35.5); Mean Corpuscular Hemoglobin 28.4 pg (28.0-33.3); Mean Corpuscular Volume 89.8 fL (83.0-100.0); Platelet Count 254 K/mcL (140-400); Red Cell Distribution Width 14.2 % (11.5-14.5); White Blood Count 10.5 K/mcL (4.3-11.1)
[2021-06-27 05:43] LABS: Potassium 4.6 mEq/L (3.5-5.1)
[2021-06-27 13:45] LABS: Bilirubin,Urine Negative (Negative); Blood,Urine Negative (Negative); Clarity,Urine Clear (Clear); Color,Urine Yellow (Yellow); Glucose,Urine (UA) Normal (Normal); Ketones,Urine Negative (Negative); Leukocyte Esterase,Urine Negative (Negative); Nitrite,Urine Negative (Negative); Protein,Urine Trace mg/dL (Neg-Trace); Urobilinogen,Urine Normal (Normal)
[2021-06-28] MEDS: 0.9 % Sodium Chloride 1,000 ML IVC SCH ×3 (06:11→21:02)
[2021-06-28 06:44] LABS: Basophils # 0.1 K/mcL (0.0-0.2); Basophils % 0.8 %; Eosinophils # 0.1 K/mcL (0.0-0.6); Eosinophils % 0.8 %; Hematocrit 50.7 % (35.3-44.9); Hemoglobin 15.9 g/dL (11.5-15.4); Immature Granulocytes % 0.2 % (0-4); Lymphocytes # 1.7 K/mcL (0.6-4.6); Lymphocytes % 18.3 %; Mean Corpuscular HGB Conc 31.4 g/dL (31.6-35.5); Mean Corpuscular Hemoglobin 28.2 pg (28.0-33.3); Mean Corpuscular Volume 90.1 fL (83.0-100.0); Mean Platelet Volume 10.1 fL (9.4-12.4); Monocytes # 0.9 K/mcL (0.0-1.3); Monocytes % 10.1 %; Neutrophils # 6.4 K/mcL (1.6-8.9); Platelet Count 242 K/mcL (140-400); Red Blood Count 5.63 M/mcL (3.82-4.97); Red Cell Distribution Width 14.2 % (11.5-14.5); Segmented Neutrophils % 69.8 %; White Blood Count 9.2 K/mcL (4.3-11.1)
[2021-06-28 07:03] LABS: Albumin 3.6 g/dL (3.5-5.7); Albumin/Globulin Ratio 1.1 (1.1-2.2); Bilirubin,Total 0.9 mg/dL (0.3-1.0); Calcium 9.6 mg/dL (8.6-10.3); Globulin 3.2 g/dL (2.4-3.5); Magnesium 1.9 mg/dL (1.6-2.6); Potassium 4.3 mEq/L (3.5-5.1); Total Protein 6.8 g/dL (6.4-8.9)
[2021-06-28] MEDS: Pantoprazole 40 MG VIAL IVP SCH (08:40)
[2021-06-28] MEDS ORDERED: Acetaminophen 650 MG RECTAL SUPP RC PRN (13:02)
[2021-06-28] MEDS: Ondansetron 4 MG/2 ML VIAL IVP PRN (13:50)
[2021-06-29 02:14] LABS: Basophils # 0.1 K/mcL (0.0-0.2); Basophils % 0.5 %; Eosinophils % 0.1 %; Hematocrit 49.6 % (35.3-44.9); Hemoglobin 15.8 g/dL (11.5-15.4); Immature Granulocytes % 0.3 % (0-4); Lymphocytes # 1.6 K/mcL (0.6-4.6); Lymphocytes % 16.4 %; Mean Corpuscular HGB Conc 31.9 g/dL (31.6-35.5); Mean Corpuscular Hemoglobin 28.6 pg (28.0-33.3); Mean Corpuscular Volume 89.9 fL (83.0-100.0); Mean Platelet Volume 10.1 fL (9.4-12.4); Monocytes % 10.5 %; Neutrophils # 7.2 K/mcL (1.6-8.9); Platelet Count 262 K/mcL (140-400); Red Blood Count 5.52 M/mcL (3.82-4.97); Red Cell Distribution Width 14.4 % (11.5-14.5); Segmented Neutrophils % 72.2 %
[2021-06-29 02:33] LABS: Potassium 4.1 mEq/L (3.5-5.1)
[2021-06-29] MEDS: *HR* Heparin 5,000 UNIT/ML VIAL SQ SCH ×3 (04:48→14:06)
[2021-06-29] MEDS: 0.9 % Sodium Chloride 1,000 ML IVC SCH (04:49)
[2021-06-29] MEDS: Pantoprazole 40 MG VIAL IVP SCH (08:44)
[2021-06-29] MEDS ORDERED: Milk and Molasses Enema 200 ML RC ONE (08:45)
[2021-06-29] MEDS ORDERED: *HR* Labetalol 20 MG/4 ML SYRINGE IVP PRN (12:42)
[2021-06-29] MEDS ORDERED: *HR* Vasopressin 20 UNIT/ML VIAL ONE (14:47)
[2021-06-29] MEDS ORDERED: Albumin Human 5% 0 GM/0 ML IV.SOLN ONE (14:47)
[2021-06-29] MEDS ORDERED: *HR* Etomidate 40 MG/20 ML VIAL IVP ONE (14:54)
[2021-06-29] MEDS ORDERED: *HR* Rocuronium Bromide 50 MG/5 ML VIAL ONE (14:54)
[2021-06-29] MEDS ORDERED: Lidocaine -MPF 2% 2 ML VIAL ONE (14:54)
[2021-06-29] MEDS ORDERED: *HR* Propofol 200 MG/20 ML VIAL IVP ONE (14:54)
[2021-06-29] MEDS ORDERED: *HR* Succinylcholine 200 MG/10 ML VIAL IVP ONE (14:54)
[2021-06-29] MEDS ORDERED: Ondansetron 4 MG/2 ML VIAL ONE (14:54)
[2021-06-29] MEDS ORDERED: *HR* FentaNYL (PF) 100 MCG/2 ML VIAL ONE (14:54)
[2021-06-29] MEDS ORDERED: Lidocaine HCL 4 ML Topical Solution (Laryng-O-Jet Kit Sterile Pak) TP ONE (14:54)
[2021-06-29] MEDS ORDERED: Albuterol 2.5 MG/3 ML NEBULIZER IH PRN (15:59)
[2021-06-29] MEDS ORDERED: Naloxone 0.4 MG/ML INJ IVP PRN (15:59)
[2021-06-29] MEDS ORDERED: Ondansetron 4 MG/2 ML VIAL IVP PRN (15:59)
[2021-06-29] MEDS ORDERED: Nitroglycerin 0.4 MG TAB.SUBL SL PRN (15:59)
[2021-06-29] MEDS ORDERED: CeFAZolin Syr 2,000MG/20 ML 2,000 MG/20 ML SYRINGE IVPB ONE (16:40)
[2021-06-29] MEDS ORDERED: Sugammadex Sodium 200 MG/2 ML VIAL IV ONE (17:19)
[2021-06-29] MEDS ORDERED: *HR* HYDROMORPHONE 2 MG/ML VIAL ONE (17:31)
[2021-06-29] MEDS: *HR* Metoprolol 5 MG/5 ML VIAL IVP PRN ×2 (18:14→18:47)
[2021-06-29 20:05] LABS: ABG Base Excess 0 mEq/L (-2 to 3); ABG HCO3 27 mEq/L (21-27); ABG Oxygen Saturation 89 % (95-98); ABG PCO2 48 mmHg (35-45); ABG PH 7.35 pH Units (7.32-7.45); ABG PO2 60 mmHg (85-104); ABG TCO2 28 mEq/L (20-26)
[2021-06-29] MEDS ORDERED: *HR* HYDROmorphone PF 0.5 MG/0.5 ML SYRINGE IVP PRN (20:48)
[2021-06-29] MEDS ORDERED: *HR* HYDROmorphone (PF) 1 MG/ML SYRINGE ONE (20:50)
[2021-06-29] MEDS ORDERED: 0.9 % Sodium Chloride 500 ML ONE (21:11)
[2021-06-30] MEDS ORDERED: *HR* Metoprolol 5 MG/5 ML VIAL IVP ONE (02:41)
[2021-06-30] MEDS: 0.9 % Sodium Chloride 1,000 ML IVC SCH ×3 (03:01→12:37)
[2021-06-30] MEDS: *HR* Heparin 5,000 UNIT/ML VIAL SQ SCH ×4 (03:25→21:16)
[2021-06-30 06:29] LABS: Basophils % 0.4 %; Hematocrit 48.5 % (35.3-44.9); Hemoglobin 14.8 g/dL (11.5-15.4); Immature Granulocytes % 0.7 % (0-4); Lymphocytes # 0.7 K/mcL (0.6-4.6); Lymphocytes % 25.7 %; Mean Corpuscular HGB Conc 30.5 g/dL (31.6-35.5); Mean Corpuscular Hemoglobin 28.4 pg (28.0-33.3); Mean Corpuscular Volume 92.9 fL (83.0-100.0); Mean Platelet Volume 10.6 fL (9.4-12.4); Monocytes # 0.1 K/mcL (0.0-1.3); Monocytes % 5.2 %; Neutrophils # 1.8 K/mcL (1.6-8.9); Platelet Count 199 K/mcL (140-400); Red Blood Count 5.22 M/mcL (3.82-4.97); Red Cell Distribution Width 14.6 % (11.5-14.5)
[2021-06-30 06:51] LABS: White Blood Count 2.7 K/mcL (4.3-11.1)
[2021-06-30 07:11] LABS: Albumin 3.3 g/dL (3.5-5.7); Albumin/Globulin Ratio 1.2 (1.1-2.2); Bilirubin,Total 0.6 mg/dL (0.3-1.0); Calcium 8.7 mg/dL (8.6-10.3); Globulin 2.8 g/dL (2.4-3.5); Magnesium 1.9 mg/dL (1.6-2.6); Phosphorous 2.9 mg/dL (2.7-4.5); Potassium 3.9 mEq/L (3.5-5.1); Total Protein 6.1 g/dL (6.4-8.9)
[2021-06-30] MEDS ORDERED: Levothyroxine Sodium 100 MCG VIAL IVP SCH (09:00)
[2021-06-30] MEDS: *HR* Metoprolol 5 MG/5 ML VIAL IVP PRN (10:11)
[2021-06-30] MEDS: Pantoprazole 40 MG VIAL IVP SCH (10:13)
[2021-06-30] MEDS ORDERED: Acetaminophen IV 1,000 MG/100 ML BAG IVPB STA (10:41)
[2021-06-30] MEDS ORDERED: *HR* HYDROmorphone (PF) 1 MG/ML SYRINGE IVP STA (10:43)
[2021-06-30] MEDS ORDERED: Orphenadrine 60 MG/2 ML VIAL IVP PRN (10:48)
[2021-06-30] MEDS: Piperacillin/Tazobactam 3.375 GM in 0.9 % Sodium Chloride Mini Bag 100 ML IVPB SCH ×2 (16:28→23:31)
[2021-06-30 16:32] LABS: ABG Base Excess -1 mEq/L (-2 to 3); ABG HCO3 24 mEq/L (21-27); ABG Oxygen Saturation 88 % (95-98); ABG PCO2 37 mmHg (35-45); ABG PH 7.42 pH Units (7.32-7.45); ABG PO2 54 mmHg (85-104); ABG TCO2 25 mEq/L (20-26)
[2021-06-30] MEDS: DilTIAZem 50 MG/50 ML IV.SOLN IVC SCH ×2 (16:43→23:32)
[2021-06-30] MEDS: Acetaminophen IV 1,000 MG/100 ML BAG IVPB SCH ×2 (18:30→23:33)
[2021-06-30] MEDS ORDERED: Albumin 25% 25gram/100mL 25 GM/100 ML IV.SOLN IVPB ONE (20:12)
[2021-07-01] MEDS: DilTIAZem 50 MG/50 ML IV.SOLN IVC SCH ×3 (02:14→23:00)
[2021-07-01 03:36] LABS: Basophils # 0.1 K/mcL (0.0-0.2); Basophils % 2.1 %; Hematocrit 39.1 % (35.3-44.9); Immature Granulocytes % 9.4 % (0-4); Lymphocytes # 0.5 K/mcL (0.6-4.6); Lymphocytes % 15.8 %; Mean Corpuscular HGB Conc 30.2 g/dL (31.6-35.5); Mean Corpuscular Volume 92.7 fL (83.0-100.0); Mean Platelet Volume 11.1 fL (9.4-12.4); Monocytes # 0.1 K/mcL (0.0-1.3); Monocytes % 1.8 %; Neutrophils # 2.4 K/mcL (1.6-8.9); Platelet Count 133 K/mcL (140-400); Red Blood Count 4.22 M/mcL (3.82-4.97); Red Cell Distribution Width 14.9 % (11.5-14.5); Segmented Neutrophils % 70.9 %; White Blood Count 3.4 K/mcL (4.3-11.1)
[2021-07-01 03:48] LABS: Hemoglobin 11.8 g/dL (11.5-15.4)
[2021-07-01] MEDS: *HR* Heparin 5,000 UNIT/ML VIAL SQ SCH ×3 (05:10→21:34)
[2021-07-01] MEDS: Acetaminophen IV 1,000 MG/100 ML BAG IVPB SCH ×4 (05:27→23:51)
[2021-07-01 05:33] LABS: Albumin/Globulin Ratio 1.4 (1.1-2.2); Bilirubin,Total 0.8 mg/dL (0.3-1.0); Calcium 7.6 mg/dL (8.6-10.3); Globulin 2.2 g/dL (2.4-3.5); Potassium 3.5 mEq/L (3.5-5.1); Total Protein 5.2 g/dL (6.4-8.9)
[2021-07-01] MEDS: Piperacillin/Tazobactam 3.375 GM in 0.9 % Sodium Chloride Mini Bag 100 ML IVPB SCH ×3 (09:58→23:51)
[2021-07-01] MEDS: Pantoprazole 40 MG VIAL IVP SCH (09:58)
[2021-07-02] MEDS ORDERED: D5% in Water 1,000 ML IVC PRN (01:29)
[2021-07-02] MEDS ORDERED: *HR* Dextrose 50 % in Water (Syg) 50 ML SYRINGE IVP PRN (01:29)
[2021-07-02] MEDS ORDERED: Dextrose 4 GM Chewable Tablets PO PRN ×2 (01:29)
[2021-07-02] MEDS: Acetaminophen IV 1,000 MG/100 ML BAG IVPB SCH ×2 (05:00→12:54)
[2021-07-02] MEDS: *HR* Heparin 5,000 UNIT/ML VIAL SQ SCH ×3 (05:01→21:02)
[2021-07-02 06:24] LABS: Albumin 2.8 g/dL (3.5-5.7); Albumin/Globulin Ratio 1.1 (1.1-2.2); Bilirubin,Total 0.6 mg/dL (0.3-1.0); Calcium 7.3 mg/dL (8.6-10.3); Globulin 2.6 g/dL (2.4-3.5); Potassium 2.9 mEq/L (3.5-5.1); Total Protein 5.4 g/dL (6.4-8.9)
[2021-07-02 06:43] LABS: Hematocrit 40.5 % (35.3-44.9); Hemoglobin 12.5 g/dL (11.5-15.4); Mean Corpuscular HGB Conc 30.9 g/dL (31.6-35.5); Mean Corpuscular Hemoglobin 28.2 pg (28.0-33.3); Mean Corpuscular Volume 91.2 fL (83.0-100.0); Mean Platelet Volume 10.8 fL (9.4-12.4); Platelet Count 165 K/mcL (140-400); Red Blood Count 4.44 M/mcL (3.82-4.97); Red Cell Distribution Width 15.2 % (11.5-14.5)
[2021-07-02 06:49] LABS: White Blood Count 6.7 K/mcL (4.3-11.1)
[2021-07-02] MEDS: Levothyroxine Sodium 100 MCG VIAL IVP SCH (07:49)
[2021-07-02] MEDS: Pantoprazole 40 MG VIAL IVP SCH (07:49)
[2021-07-02] MEDS: Piperacillin/Tazobactam 3.375 GM in 0.9 % Sodium Chloride Mini Bag 100 ML IVPB SCH ×2 (07:49→17:48)
[2021-07-02] MEDS: DilTIAZem 50 MG/50 ML IV.SOLN IVC SCH ×3 (07:53→22:42)
[2021-07-02 07:59] LABS: Lymphocytes # 0.9 K/mcL (0.6-4.6); Monocytes # 0.4 K/mcL (0.0-1.3); Neutrophils # 5.2 K/mcL (1.6-8.9); Platelet Estimate Normal (Normal)
[2021-07-02 10:07] LABS: Magnesium 1.8 mg/dL (1.6-2.6)
[2021-07-02] MEDS: Acetaminophen 325 MG TABLET PO SCH (17:47)
[2021-07-03] MEDS: Acetaminophen 325 MG TABLET PO SCH ×5 (01:16→23:56)
[2021-07-03] MEDS: Piperacillin/Tazobactam 3.375 GM in 0.9 % Sodium Chloride Mini Bag 100 ML IVPB SCH ×4 (01:16→23:56)
[2021-07-03 02:32] LABS: Basophils # 0.1 K/mcL (0.0-0.2); Basophils % 0.7 %; Eosinophils # 0.1 K/mcL (0.0-0.6); Eosinophils % 1.4 %; Hematocrit 37.7 % (35.3-44.9); Immature Granulocytes % 1.3 % (0-4); Lymphocytes % 11.6 %; Mean Corpuscular HGB Conc 31.8 g/dL (31.6-35.5); Mean Corpuscular Hemoglobin 28.3 pg (28.0-33.3); Mean Corpuscular Volume 88.9 fL (83.0-100.0); Mean Platelet Volume 10.4 fL (9.4-12.4); Monocytes # 0.2 K/mcL (0.0-1.3); Monocytes % 2.3 %; Nucleated Red Blood Cells 0.4 /100 WBC (0); Platelet Count 168 K/mcL (140-400); Red Blood Count 4.24 M/mcL (3.82-4.97); Red Cell Distribution Width 15.3 % (11.5-14.5); Segmented Neutrophils % 82.7 %; White Blood Count 8.4 K/mcL (4.3-11.1)
[2021-07-03 02:47] LABS: BUN/Creatinine Ratio 45 (6-26); Blood Urea Nitrogen 41 mg/dL (8-23); Calcium 7.2 mg/dL (8.6-10.3); Carbon Dioxide 21 mEq/L (23-29); Chloride 112 mEq/L (98-107); Glucose 123 mg/dL (70-105); Magnesium 1.8 mg/dL (1.6-2.6); Osmolality,Calculated 303 (280-300); Phosphorous < 1.0 mg/dL (2.7-4.5); Potassium 3.6 mEq/L (3.5-5.1); Sodium 141 mEq/L (136-145); eGFR For African Americans > 60 (> 60); eGFR For Non-African Americans 58 (> 60)
[2021-07-03] MEDS ORDERED: Calcium Gluconate 1gm/50mL 1 GM/50 ML BAG IVPB ONE (02:55)
[2021-07-03] MEDS ORDERED: Ipratropium/Albuterol Neb 3 ML IH PRN (03:08)
[2021-07-03 03:15] LABS: Platelet Estimate Normal (Normal)
[2021-07-03] MEDS: *HR* Heparin 5,000 UNIT/ML VIAL SQ SCH ×3 (05:44→20:55)
[2021-07-03] MEDS: DilTIAZem 50 MG/50 ML IV.SOLN IVC SCH (06:34)
[2021-07-03] MEDS: Levothyroxine Sodium 100 MCG VIAL IVP SCH (08:57)
[2021-07-03] MEDS: Pantoprazole 40 MG VIAL IVP SCH (08:57)
[2021-07-03] MEDS ORDERED: Ibuprofen 800 MG TABLET PO SCH (09:53)
[2021-07-03] MEDS: Gabapentin 100 MG CAPSULE PO SCH ×2 (13:55→20:54)
[2021-07-04] MEDS: *HR* Heparin 5,000 UNIT/ML VIAL SQ SCH ×3 (05:40→22:01)
[2021-07-04] MEDS: Acetaminophen 325 MG TABLET PO SCH ×4 (05:41→23:55)
[2021-07-04 06:30] LABS: BUN/Creatinine Ratio 38 (6-26); Blood Urea Nitrogen 29 mg/dL (8-23); Carbon Dioxide 20 mEq/L (23-29); Chloride 115 mEq/L (98-107); Glucose 99 mg/dL (70-105); Magnesium 1.7 mg/dL (1.6-2.6); Osmolality,Calculated 304 (280-300); Phosphorous 1.6 mg/dL (2.7-4.5); Potassium 3.8 mEq/L (3.5-5.1); Sodium 144 mEq/L (136-145); eGFR For African Americans > 60 (> 60); eGFR For Non-African Americans > 60 (> 60)
[2021-07-04] MEDS: Gabapentin 100 MG CAPSULE PO SCH ×3 (08:58→22:01)
[2021-07-04] MEDS: Piperacillin/Tazobactam 3.375 GM in 0.9 % Sodium Chloride Mini Bag 100 ML IVPB SCH ×3 (08:59→23:54)
[2021-07-04] MEDS ORDERED: Potassium Chloride Elixir 20 MEQ/15 ML UDC PO ONE (09:14)
[2021-07-04] MEDS: Magnesium Oxide 400 MG TABLET PO SCH (09:58)
[2021-07-05] MEDS: Acetaminophen 325 MG TABLET PO SCH ×2 (04:53→13:13)
[2021-07-05] MEDS: *HR* Heparin 5,000 UNIT/ML VIAL SQ SCH ×3 (04:54→20:11)
[2021-07-05 07:33] LABS: BUN/Creatinine Ratio 26 (6-26); Blood Urea Nitrogen 18 mg/dL (8-23); Calcium 8.9 mg/dL (8.6-10.3); Carbon Dioxide 23 mEq/L (23-29); Chloride 111 mEq/L (98-107); Glucose 97 mg/dL (70-105); Magnesium 1.5 mg/dL (1.6-2.6); Osmolality,Calculated 296 (280-300); Phosphorous 3.1 mg/dL (2.7-4.5); Potassium 3.8 mEq/L (3.5-5.1); Sodium 142 mEq/L (136-145); eGFR For African Americans > 60 (> 60); eGFR For Non-African Americans > 60 (> 60)
[2021-07-05] MEDS: Gabapentin 100 MG CAPSULE PO SCH ×3 (09:05→20:11)
[2021-07-05] MEDS: DilTIAZem CD (24hr) 120 MG CAP.ER.24H PO SCH (09:05)
[2021-07-05] MEDS: Magnesium Oxide 400 MG TABLET PO SCH (09:05)
[2021-07-05] MEDS: Ondansetron 4 MG/2 ML VIAL IVP PRN (09:08)
[2021-07-05] MEDS: Piperacillin/Tazobactam 3.375 GM in 0.9 % Sodium Chloride Mini Bag 100 ML IVPB SCH ×2 (09:45→15:56)
[2021-07-06] MEDS: Acetaminophen 325 MG TABLET PO SCH ×6 (00:05→23:51)
[2021-07-06] MEDS: Piperacillin/Tazobactam 3.375 GM in 0.9 % Sodium Chloride Mini Bag 100 ML IVPB SCH ×4 (00:22→23:52)
[2021-07-06] MEDS: Ondansetron 4 MG/2 ML VIAL IVP PRN (00:35)
[2021-07-06 01:55] LABS: BUN/Creatinine Ratio 25 (6-26); Blood Urea Nitrogen 16 mg/dL (8-23); Calcium 8.4 mg/dL (8.6-10.3); Carbon Dioxide 17 mEq/L (23-29); Chloride 106 mEq/L (98-107); Glucose 93 mg/dL (70-105); Magnesium 1.6 mg/dL (1.6-2.6); Osmolality,Calculated 283 (280-300); Phosphorous 3.2 mg/dL (2.7-4.5); Potassium 4.2 mEq/L (3.5-5.1); Sodium 136 mEq/L (136-145); eGFR For African Americans > 60 (> 60); eGFR For Non-African Americans > 60 (> 60)
[2021-07-06] MEDS: *HR* Heparin 5,000 UNIT/ML VIAL SQ SCH (05:48)
[2021-07-06] MEDS: DilTIAZem CD (24hr) 120 MG CAP.ER.24H PO SCH (07:58)
[2021-07-06] MEDS: Gabapentin 100 MG CAPSULE PO SCH ×3 (07:58→21:23)
[2021-07-06] MEDS: Magnesium Oxide 400 MG TABLET PO SCH (07:58)
[2021-07-06] MEDS: *HR* Enoxaparin 80 MG/0.8 ML SYRINGE SQ SCH ×2 (13:36→21:23)
[2021-07-07 01:28] LABS: Basophils % 0.4 %; Eosinophils # 0.1 K/mcL (0.0-0.6); Eosinophils % 0.9 %; Hematocrit 34.2 % (35.3-44.9); Hemoglobin 10.8 g/dL (11.5-15.4); Immature Granulocytes % 2.1 % (0-4); Lymphocytes % 10.4 %; Mean Corpuscular HGB Conc 31.6 g/dL (31.6-35.5); Mean Corpuscular Hemoglobin 28.1 pg (28.0-33.3); Mean Corpuscular Volume 89.1 fL (83.0-100.0); Mean Platelet Volume 10.6 fL (9.4-12.4); Monocytes # 0.7 K/mcL (0.0-1.3); Monocytes % 6.4 %; Neutrophils # 8.8 K/mcL (1.6-8.9); Platelet Count 230 K/mcL (140-400); Red Blood Count 3.84 M/mcL (3.82-4.97); Red Cell Distribution Width 15.3 % (11.5-14.5); Segmented Neutrophils % 79.8 %
[2021-07-07 01:29] LABS: Lymphocytes # 1.1 K/mcL (0.6-4.6)
[2021-07-07 01:47] LABS: Alanine Aminotransferase 9 Units/L (7-52); Albumin 2.5 g/dL (3.5-5.7); Albumin/Globulin Ratio 0.9 (1.1-2.2); Alkaline Phosphatase 68 Units/L (34-104); Aspartate Amino Transferase 15 Units/L (13-39); BUN/Creatinine Ratio 22 (6-26); Bilirubin,Direct 0.1 mg/dL (0.0-0.2); Bilirubin,Indirect 0.3 mg/dL (0.0-1.0); Bilirubin,Total 0.4 mg/dL (0.3-1.0); Blood Urea Nitrogen 15 mg/dL (8-23); Calcium 8.3 mg/dL (8.6-10.3); Carbon Dioxide 23 mEq/L (23-29); Chloride 106 mEq/L (98-107); Globulin 2.9 g/dL (2.4-3.5); Glucose 122 mg/dL (70-105); Magnesium 1.7 mg/dL (1.6-2.6); Osmolality,Calculated 286 (280-300); Potassium 3.8 mEq/L (3.5-5.1); Sodium 137 mEq/L (136-145); Total Protein 5.4 g/dL (6.4-8.9); eGFR For African Americans > 60 (> 60); eGFR For Non-African Americans > 60 (> 60)
[2021-07-07] MEDS: Acetaminophen 325 MG TABLET PO SCH ×4 (05:21→23:14)
[2021-07-07] MEDS: *HR* Enoxaparin 80 MG/0.8 ML SYRINGE SQ SCH ×2 (05:22→17:54)
[2021-07-07] MEDS: DilTIAZem CD (24hr) 120 MG CAP.ER.24H PO SCH (08:12)
[2021-07-07] MEDS: Gabapentin 100 MG CAPSULE PO SCH ×3 (08:13→20:59)
[2021-07-07] MEDS: Piperacillin/Tazobactam 3.375 GM in 0.9 % Sodium Chloride Mini Bag 100 ML IVPB SCH (08:14)
[2021-07-07] MEDS: Magnesium Oxide 400 MG TABLET PO SCH (08:14)
[2021-07-08 05:56] LABS: Basophils % 0.3 %; Eosinophils # 0.1 K/mcL (0.0-0.6); Eosinophils % 1.3 %; Hematocrit 34.3 % (35.3-44.9); Hemoglobin 11.2 g/dL (11.5-15.4); Immature Granulocytes % 1.6 % (0-4); Lymphocytes % 9.4 %; Mean Corpuscular HGB Conc 32.7 g/dL (31.6-35.5); Mean Corpuscular Hemoglobin 28.4 pg (28.0-33.3); Mean Corpuscular Volume 86.8 fL (83.0-100.0); Mean Platelet Volume 10.2 fL (9.4-12.4); Monocytes # 0.7 K/mcL (0.0-1.3); Monocytes % 6.8 %; Neutrophils # 8.6 K/mcL (1.6-8.9); Platelet Count 285 K/mcL (140-400); Red Blood Count 3.95 M/mcL (3.82-4.97); Red Cell Distribution Width 14.8 % (11.5-14.5); Segmented Neutrophils % 80.6 %; White Blood Count 10.7 K/mcL (4.3-11.1)
[2021-07-08 06:15] LABS: BUN/Creatinine Ratio 20 (6-26); Blood Urea Nitrogen 12 mg/dL (8-23); Calcium 8.7 mg/dL (8.6-10.3); Carbon Dioxide 28 mEq/L (23-29); Chloride 104 mEq/L (98-107); Glucose 116 mg/dL (70-105); Osmolality,Calculated 285 (280-300); Potassium 3.8 mEq/L (3.5-5.1); Sodium 137 mEq/L (136-145); eGFR For African Americans > 60 (> 60); eGFR For Non-African Americans > 60 (> 60)
[2021-07-08] MEDS: Acetaminophen 325 MG TABLET PO SCH ×3 (06:32→17:12)
[2021-07-08] MEDS: *HR* Enoxaparin 80 MG/0.8 ML SYRINGE SQ SCH (06:33)
[2021-07-08] MEDS: Gabapentin 100 MG CAPSULE PO SCH ×3 (09:50→21:33)
[2021-07-08] MEDS: Magnesium Oxide 400 MG TABLET PO SCH (09:50)
[2021-07-08] MEDS: DilTIAZem CD (24hr) 120 MG CAP.ER.24H PO SCH (09:50)
[2021-07-08 13:48] LABS: % Iron Saturation 7 % (15-50); Iron 13 mcg/dL (50-170); Transferrin 128 mg/dL (203-362)
[2021-07-08] MEDS ORDERED: *HR* Enoxaparin 80 MG/0.8 ML SYRINGE SQ ONE (18:00)
[2021-07-09 03:40] LABS: Basophils % 0.2 %; Eosinophils # 0.1 K/mcL (0.0-0.6); Eosinophils % 0.9 %; Hematocrit 31.7 % (35.3-44.9); Hemoglobin 10.1 g/dL (11.5-15.4); Immature Granulocytes % 1.1 % (0-4); Lymphocytes # 1.3 K/mcL (0.6-4.6); Mean Corpuscular HGB Conc 31.9 g/dL (31.6-35.5); Mean Corpuscular Hemoglobin 27.8 pg (28.0-33.3); Mean Corpuscular Volume 87.3 fL (83.0-100.0); Mean Platelet Volume 10.4 fL (9.4-12.4); Monocytes # 0.8 K/mcL (0.0-1.3); Monocytes % 6.3 %; Neutrophils # 10.5 K/mcL (1.6-8.9); Platelet Count 332 K/mcL (140-400); Red Blood Count 3.63 M/mcL (3.82-4.97); Red Cell Distribution Width 14.8 % (11.5-14.5); Segmented Neutrophils % 81.5 %; White Blood Count 12.8 K/mcL (4.3-11.1)
[2021-07-09] MEDS: Acetaminophen 325 MG TABLET PO SCH ×6 (03:57→23:49)
[2021-07-09 04:05] LABS: BUN/Creatinine Ratio 29 (6-26); Blood Urea Nitrogen 16 mg/dL (8-23); Calcium 9.1 mg/dL (8.6-10.3); Carbon Dioxide 27 mEq/L (23-29); Chloride 103 mEq/L (98-107); Glucose 117 mg/dL (70-105); Osmolality,Calculated 286 (280-300); Potassium 4.1 mEq/L (3.5-5.1); Sodium 137 mEq/L (136-145); eGFR For African Americans > 60 (> 60); eGFR For Non-African Americans > 60 (> 60)
[2021-07-09] MEDS: DilTIAZem CD (24hr) 120 MG CAP.ER.24H PO SCH (09:33)
[2021-07-09] MEDS: Gabapentin 100 MG CAPSULE PO SCH ×3 (09:33→19:35)
[2021-07-09] MEDS: *HR* Rivaroxaban 15 MG TABLET PO SCH (09:33)
[2021-07-09] MEDS: Magnesium Oxide 400 MG TABLET PO SCH (09:33)
[2021-07-09] MEDS: Piperacillin/Tazobactam 3.375 GM in 0.9 % Sodium Chloride Mini Bag 100 ML IVPB SCH ×2 (11:20→19:35)
[2021-07-09 11:50] LABS: Hematocrit 32.2 % (35.3-44.9); Hemoglobin 10.3 g/dL (11.5-15.4); Mean Corpuscular Hemoglobin 28.3 pg (28.0-33.3); Mean Corpuscular Volume 88.5 fL (83.0-100.0); Mean Platelet Volume 10.3 fL (9.4-12.4); Platelet Count 348 K/mcL (140-400); Red Blood Count 3.64 M/mcL (3.82-4.97); Red Cell Distribution Width 14.8 % (11.5-14.5); White Blood Count 12.8 K/mcL (4.3-11.1)
[2021-07-09 12:40] LABS: Influenza A PCR Negative (Negative); Influenza B PCR Negative (Negative); Resp. Syncytial Virus PCR Negative (Negative)
[2021-07-09 13:03] LABS: SARS-CoV-2 by PCR (In House) Negative (Negative)
[2021-07-10] MEDS: Piperacillin/Tazobactam 3.375 GM in 0.9 % Sodium Chloride Mini Bag 100 ML IVPB SCH ×2 (03:47→09:24)
[2021-07-10] MEDS: Acetaminophen 325 MG TABLET PO SCH (05:35)
[2021-07-10 06:23] LABS: Hematocrit 29.6 % (35.3-44.9); Hemoglobin 9.7 g/dL (11.5-15.4); Mean Corpuscular HGB Conc 32.8 g/dL (31.6-35.5); Mean Corpuscular Hemoglobin 28.4 pg (28.0-33.3); Mean Corpuscular Volume 86.5 fL (83.0-100.0); Mean Platelet Volume 11.2 fL (9.4-12.4); Platelet Count 259 K/mcL (140-400); Red Blood Count 3.42 M/mcL (3.82-4.97); Red Cell Distribution Width 14.9 % (11.5-14.5); White Blood Count 11.3 K/mcL (4.3-11.1)
[2021-07-10 09:20] LABS: BUN/Creatinine Ratio 34 (6-26); Blood Urea Nitrogen 21 mg/dL (8-23); Calcium 8.8 mg/dL (8.6-10.3); Carbon Dioxide 30 mEq/L (23-29); Chloride 103 mEq/L (98-107); Glucose 121 mg/dL (70-105); Osmolality,Calculated 288 (280-300); Potassium 4.6 mEq/L (3.5-5.1); Sodium 137 mEq/L (136-145); eGFR For African Americans > 60 (> 60); eGFR For Non-African Americans > 60 (> 60)
[2021-07-10] MEDS: *HR* Rivaroxaban 15 MG TABLET PO SCH (09:23)
[2021-07-10] MEDS: Gabapentin 100 MG CAPSULE PO SCH (09:23)
[2021-07-10] MEDS: Magnesium Oxide 400 MG TABLET PO SCH (09:23)
[2021-07-10] MEDS: DilTIAZem CD (24hr) 120 MG CAP.ER.24H PO SCH (09:23)
[2021-07-10 11:52] VITALS: BP 140/64; PULSE 92; TEMP 97.6; O2SAT 93
== END 2021-07-10 14:42 | DRG 335 ==
LOC: EMEROOARM 15:30 → 3ANU 15:30 → SUATTDRO 06-28 17:53
PROVIDERS: ADMIT Internal Medicine; ATTEND Family Medicine

== ENCOUNTER 2021-08-10 19:12 | Inpatient (IN) ==
[2021-08-10] MEDS ORDERED: Acetaminophen 325 MG TABLET PO PRN (22:06)
[2021-08-10] MEDS ORDERED: Naloxone 0.4 MG/ML INJ IVP PRN (22:06)
[2021-08-10] MEDS ORDERED: Ondansetron 4 MG/2 ML VIAL IVP PRN (22:06)
[2021-08-10 23:18] LABS: Basophils # 0.1 K/mcL (0.0-0.2); Basophils % 0.5 %; Eosinophils # 0.3 K/mcL (0.0-0.6); Eosinophils % 2.7 %; Hematocrit 22.3 % (35.3-44.9); Hemoglobin 6.3 g/dL (11.5-15.4); Immature Granulocytes % 0.8 % (0-4); Immature Platelets 1.9 % (1.1-6.1); Lymphocytes % 25.3 %; Mean Corpuscular HGB Conc 28.3 g/dL (31.6-35.5); Mean Corpuscular Hemoglobin 29.3 pg (28.0-33.3); Mean Corpuscular Volume 103.7 fL (83.0-100.0); Mean Platelet Volume 9.5 fL (9.4-12.4); Monocytes # 0.6 K/mcL (0.0-1.3); Monocytes % 6.1 %; Neutrophils # 6.8 K/mcL (1.6-8.9); Nucleated Red Blood Cells 0.4 /100 WBC (0); Platelet Count 405 K/mcL (140-400); Red Blood Count 2.15 M/mcL (3.82-4.97); Red Cell Distribution Width 21.4 % (11.5-14.5); Segmented Neutrophils % 64.6 %; White Blood Count 10.5 K/mcL (4.3-11.1)
[2021-08-10 23:19] LABS: Lymphocytes # 2.7 K/mcL (0.6-4.6)
[2021-08-10] MEDS ORDERED: Pantoprazole 40 MG VIAL IVP ONE (23:23)
[2021-08-10 23:35] LABS: Anisocytosis 2+ (Not Present); Hypochromasia Present (Not Present); Platelet Estimate Normal (Normal); Polychromasia 1+ (Not Present)
[2021-08-10] MEDS: Piperacillin/Tazobactam 3.375 GM in 0.9 % Sodium Chloride Mini Bag 100 ML IVPB SCH (23:47)
[2021-08-11] MEDS: Pantoprazole 40 MG in 0.9 % Sodium Chloride Mini Bag 100 ML IVC SCH ×6 (01:42→22:38)
[2021-08-11] MEDS ORDERED: Ipratropium/Albuterol Neb 3 ML IH PRN (02:37)
[2021-08-11 03:30] LABS: Adenovirus Not Detected (Not Detect); Bordetella Pertussis Not Detected (Not Detect); Chlamydophila pneumoniae Not Detected (Not Detect); Coronavirus 229E Not Detected (Not Detect); Coronavirus HKU1 Not Detected (Not Detect); Coronavirus NL63 Not Detected (Not Detect); Coronavirus OC43 Not Detected (Not Detect); Human Metapneumovirus Not Detected (Not Detect); Human Rhinovirus/Enterovirus Not Detected (Not Detect); Influenza A Subtype 2009 H1 Not Detected (Not Detect); Influenza B Not Detected (Not Detect); Mycoplasma pneumoniae Not Detected (Not Detect); Parainfluenza Virus 1 Not Detected (Not Detect); Parainfluenza Virus 2 Not Detected (Not Detect); Parainfluenza Virus 3 Not Detected (Not Detect); Parainfluenza Virus 4 Not Detected (Not Detect); Respiratory Syncytial Virus Not Detected (Not Detect); SARS-CoV-2 Not Detected (Not Detect)
[2021-08-11] MEDS: Piperacillin/Tazobactam 3.375 GM in 0.9 % Sodium Chloride Mini Bag 100 ML IVPB SCH ×2 (08:53→17:13)
[2021-08-11] MEDS: DilTIAZem CD (24hr) 120 MG CAP.ER.24H PO SCH (08:58)
[2021-08-11] MEDS: Gabapentin 100 MG CAPSULE PO SCH ×3 (08:58→20:53)
[2021-08-11] MEDS: (Mirabegron [Myrbetriq] 50 MG Tab.Er.24h) PO SCH (08:58)
[2021-08-11] MEDS: Magnesium Oxide 400 MG TABLET PO SCH (08:58)
[2021-08-11 10:24] LABS: Basophils % 0.4 %; Eosinophils # 0.5 K/mcL (0.0-0.6); Eosinophils % 4.6 %; Hematocrit 21.2 % (35.3-44.9); Hemoglobin 6.3 g/dL (11.5-15.4); Lymphocytes # 1.8 K/mcL (0.6-4.6); Lymphocytes % 18.1 %; Mean Corpuscular HGB Conc 29.7 g/dL (31.6-35.5); Mean Corpuscular Hemoglobin 30.1 pg (28.0-33.3); Mean Corpuscular Volume 101.4 fL (83.0-100.0); Mean Platelet Volume 9.5 fL (9.4-12.4); Monocytes # 0.5 K/mcL (0.0-1.3); Nucleated Red Blood Cells 0.2 /100 WBC (0); Platelet Count 321 K/mcL (140-400); Red Blood Count 2.09 M/mcL (3.82-4.97); Red Cell Distribution Width 22.5 % (11.5-14.5); Segmented Neutrophils % 70.9 %; White Blood Count 9.9 K/mcL (4.3-11.1)
[2021-08-11] MEDS ORDERED: 0.9 % Sodium Chloride 250 ML ONE (10:33)
[2021-08-11 10:34] LABS: INR 1.4; Prothrombin Time 16.1 Seconds (9.4-12.1)
[2021-08-11 10:46] LABS: Albumin 2.6 g/dL (3.5-5.7); Albumin/Globulin Ratio 0.9 (1.1-2.2); Bilirubin,Direct 0.1 mg/dL (0.0-0.2); Bilirubin,Indirect 0.3 mg/dL (0.0-1.0); Bilirubin,Total 0.4 mg/dL (0.3-1.0); Calcium 7.9 mg/dL (8.6-10.3); Globulin 2.9 g/dL (2.4-3.5); Magnesium 2.3 mg/dL (1.6-2.6); Phosphorous 2.7 mg/dL (2.7-4.5); Total Protein 5.5 g/dL (6.4-8.9)
[2021-08-11 10:59] LABS: Thyroid Stimulating Hormone 3.2 mcIU/mL (0.340-5.600)
[2021-08-11 15:10] LABS: Hemoglobin 7.2 g/dL (11.5-15.4)
[2021-08-11] MEDS: Mirtazapine 15 MG TABLET PO SCH (20:54)
[2021-08-11] MEDS: Melatonin 3 MG TABLET PO SCH (20:54)
[2021-08-11 22:51] LABS: Hematocrit 22.5 % (35.3-44.9); Hemoglobin 6.7 g/dL (11.5-15.4)
[2021-08-12] MEDS: Piperacillin/Tazobactam 3.375 GM in 0.9 % Sodium Chloride Mini Bag 100 ML IVPB SCH ×3 (00:58→14:25)
[2021-08-12] MEDS: Pantoprazole 40 MG in 0.9 % Sodium Chloride Mini Bag 100 ML IVC SCH ×4 (05:45→21:06)
[2021-08-12 07:02] LABS: Basophils % 0.5 %; Eosinophils # 0.5 K/mcL (0.0-0.6); Eosinophils % 7.1 %; Hematocrit 24.1 % (35.3-44.9); Hemoglobin 7.1 g/dL (11.5-15.4); Immature Granulocytes % 0.7 % (0-4); Lymphocytes # 1.6 K/mcL (0.6-4.6); Lymphocytes % 21.4 %; Mean Corpuscular HGB Conc 29.5 g/dL (31.6-35.5); Mean Corpuscular Hemoglobin 28.7 pg (28.0-33.3); Mean Corpuscular Volume 97.6 fL (83.0-100.0); Mean Platelet Volume 9.7 fL (9.4-12.4); Monocytes # 0.5 K/mcL (0.0-1.3); Monocytes % 6.6 %; Neutrophils # 4.9 K/mcL (1.6-8.9); Nucleated Red Blood Cells 0.3 /100 WBC (0); Platelet Count 278 K/mcL (140-400); Red Blood Count 2.47 M/mcL (3.82-4.97); Red Cell Distribution Width 22.5 % (11.5-14.5); Segmented Neutrophils % 63.7 %; White Blood Count 7.6 K/mcL (4.3-11.1)
[2021-08-12 07:22] LABS: Calcium 7.2 mg/dL (8.6-10.3); Magnesium 2.4 mg/dL (1.6-2.6); Phosphorous 2.8 mg/dL (2.7-4.5)
[2021-08-12] MEDS: DilTIAZem CD (24hr) 120 MG CAP.ER.24H PO SCH (10:03)
[2021-08-12] MEDS: Magnesium Oxide 400 MG TABLET PO SCH (10:04)
[2021-08-12] MEDS: Gabapentin 100 MG CAPSULE PO SCH ×3 (10:04→21:06)
[2021-08-12] MEDS: (Mirabegron [Myrbetriq] 50 MG Tab.Er.24h) PO SCH (10:09)
[2021-08-12] MEDS: Melatonin 3 MG TABLET PO SCH (21:06)
[2021-08-12] MEDS: Mirtazapine 15 MG TABLET PO SCH (21:06)
[2021-08-13] MEDS: Pantoprazole 40 MG in 0.9 % Sodium Chloride Mini Bag 100 ML IVC SCH ×3 (02:24→13:42)
[2021-08-13 03:27] LABS: Basophils % 0.6 %; Eosinophils # 0.4 K/mcL (0.0-0.6); Eosinophils % 6.5 %; Hematocrit 25.8 % (35.3-44.9); Hemoglobin 7.6 g/dL (11.5-15.4); Immature Granulocytes % 0.5 % (0-4); Lymphocytes # 1.5 K/mcL (0.6-4.6); Lymphocytes % 22.2 %; Mean Corpuscular HGB Conc 29.5 g/dL (31.6-35.5); Mean Corpuscular Hemoglobin 28.9 pg (28.0-33.3); Mean Corpuscular Volume 98.1 fL (83.0-100.0); Mean Platelet Volume 9.9 fL (9.4-12.4); Monocytes # 0.5 K/mcL (0.0-1.3); Monocytes % 7.1 %; Neutrophils # 4.2 K/mcL (1.6-8.9); Platelet Count 274 K/mcL (140-400); Red Blood Count 2.63 M/mcL (3.82-4.97); Red Cell Distribution Width 22.2 % (11.5-14.5); Segmented Neutrophils % 63.1 %; White Blood Count 6.6 K/mcL (4.3-11.1)
[2021-08-13 03:51] LABS: BUN/Creatinine Ratio 19 (6-26); Blood Urea Nitrogen 18 mg/dL (8-23); Calcium 7.5 mg/dL (8.6-10.3); Carbon Dioxide 23 mEq/L (23-29); Chloride 111 mEq/L (98-107); Glucose 89 mg/dL (70-105); Magnesium 2.4 mg/dL (1.6-2.6); Osmolality,Calculated 289 (280-300); Phosphorous 2.4 mg/dL (2.7-4.5); Potassium 3.9 mEq/L (3.5-5.1); Sodium 139 mEq/L (136-145); eGFR For African Americans > 60 (> 60); eGFR For Non-African Americans 54 (> 60)
[2021-08-13] MEDS: Piperacillin/Tazobactam 3.375 GM in 0.9 % Sodium Chloride Mini Bag 100 ML IVPB SCH ×2 (08:17)
[2021-08-13] MEDS: DilTIAZem CD (24hr) 120 MG CAP.ER.24H PO SCH (08:21)
[2021-08-13] MEDS: Magnesium Oxide 400 MG TABLET PO SCH (08:21)
[2021-08-13] MEDS: Gabapentin 100 MG CAPSULE PO SCH (08:21)
[2021-08-13] MEDS: (Mirabegron [Myrbetriq] 50 MG Tab.Er.24h) PO SCH (08:22)
[2021-08-13 10:39] VITALS: TEMP 98.2; O2SAT 96
[2021-08-13 15:24] VITALS: BP 105/50; PULSE 80
== END 2021-08-13 16:45 | disposition home or self-care (01) | DRG 177 ==
LOC: 3NENU → SUATTDRO 20:59
PROVIDERS: ADMIT Student in an Organized Health Care Education/Training Program; ATTEND Internal Medicine

== ENCOUNTER 2021-08-30 22:15 | Inpatient (IN) ==
[2021-08-31] MEDS ORDERED: Naloxone 0.4 MG/ML INJ IVP PRN (01:28)
[2021-08-31] MEDS ORDERED: Melatonin 3 MG TABLET PO PRN (01:28)
[2021-08-31] MEDS ORDERED: Ondansetron 4 MG/2 ML VIAL IVP PRN (01:28)
[2021-08-31 03:27] LABS: Basophils % 0.6 %; Hemoglobin 8.8 g/dL (11.5-15.4)
[2021-08-31 03:29] LABS: Basophils # 0.1 K/mcL (0.0-0.2); Eosinophils # 0.1 K/mcL (0.0-0.6); Eosinophils % 1.2 %; Hematocrit 30.5 % (35.3-44.9); Immature Granulocytes % 0.6 % (0-4); Lymphocytes # 1.7 K/mcL (0.6-4.6); Lymphocytes % 14.5 %; Mean Corpuscular HGB Conc 28.9 g/dL (31.6-35.5); Mean Corpuscular Hemoglobin 26.9 pg (28.0-33.3); Mean Corpuscular Volume 93.3 fL (83.0-100.0); Mean Platelet Volume 9.7 fL (9.4-12.4); Monocytes # 0.8 K/mcL (0.0-1.3); Monocytes % 6.6 %; Platelet Count 351 K/mcL (140-400); Red Blood Count 3.27 M/mcL (3.82-4.97); Segmented Neutrophils % 76.5 %; White Blood Count 11.7 K/mcL (4.3-11.1)
[2021-08-31 03:37] LABS: INR 1.2; Prothrombin Time 13.3 Seconds (9.4-12.1)
[2021-08-31] MEDS: Piperacillin/Tazobactam 3.375 GM in 0.9 % Sodium Chloride Mini Bag 100 ML IVPB SCH ×3 (03:46→20:05)
[2021-08-31 03:52] LABS: Troponin I 0.05 ng/mL (< 0.04)
[2021-08-31 03:57] LABS: Alanine Aminotransferase 7 Units/L (7-52); Albumin 2.7 g/dL (3.5-5.7); Albumin/Globulin Ratio 0.7 (1.1-2.2); Alkaline Phosphatase 58 Units/L (34-104); Aspartate Amino Transferase 14 Units/L (13-39); BUN/Creatinine Ratio 23 (6-26); Bilirubin,Total 0.2 mg/dL (0.3-1.0); Blood Urea Nitrogen 17 mg/dL (8-23); Calcium 8.3 mg/dL (8.6-10.3); Carbon Dioxide 29 mEq/L (23-29); Chloride 107 mEq/L (98-107); Globulin 3.7 g/dL (2.4-3.5); Glucose 104 mg/dL (70-105); Osmolality,Calculated 298 (280-300); Phosphorous 1.8 mg/dL (2.7-4.5); Potassium 3.6 mEq/L (3.5-5.1); Sodium 143 mEq/L (136-145); Total Protein 6.4 g/dL (6.4-8.9); eGFR For African Americans > 60 (> 60); eGFR For Non-African Americans > 60 (> 60)
[2021-08-31] MEDS ORDERED: Furosemide 20 MG/2 ML VIAL IVP ONE (04:06)
[2021-08-31] MEDS ORDERED: Potassium Phosphate 44 MEQ in 0.9 % Sodium Chloride 250 ML IVPB ONE (04:18)
[2021-08-31 05:19] LABS: Hypochromasia Present (Not Present); Platelet Estimate Normal (Normal)
[2021-08-31] MEDS ORDERED: *HR* Dextrose 50 % in Water (Syg) 50 ML SYRINGE IVP PRN (07:22)
[2021-08-31] MEDS ORDERED: Dextrose Gel 15 GM/37.5 ML TUBE PO PRN ×2 (07:22)
[2021-08-31] MEDS ORDERED: D5% in Water 1,000 ML IVC PRN (07:22)
[2021-08-31] MEDS: Insulin LISPRO 300 UNITS/3 ML VIAL SUBQ SCH ×2 (11:29→17:20)
[2021-08-31] MEDS: Ipratropium/Albuterol Neb 3 ML IH SCH ×6 (11:30→23:36)
[2021-08-31] MEDS: Budesonide/Formoterol 160/4.5 1 PUFF INH IH SCH ×2 (11:30→20:40)
[2021-08-31] MEDS: Gabapentin 100 MG CAPSULE PO SCH ×2 (15:08→20:07)
[2021-08-31] MEDS ORDERED: DilTIAZem CD (24hr) 120 MG CAP.ER.24H PO ONE (16:56)
[2021-08-31] MEDS: Mirtazapine 15 MG TABLET PO SCH (20:06)
[2021-08-31] MEDS: Melatonin 3 MG TABLET PO SCH (20:07)
[2021-08-31] MEDS ORDERED: *HR* Metoprolol 5 MG/5 ML VIAL IVP ONE (21:53)
[2021-09-01] MEDS: Insulin LISPRO 300 UNITS/3 ML VIAL SUBQ SCH ×4 (00:07→18:17)
[2021-09-01] MEDS: Ipratropium/Albuterol Neb 3 ML IH SCH ×6 (03:33→23:52)
[2021-09-01] MEDS: Piperacillin/Tazobactam 3.375 GM in 0.9 % Sodium Chloride Mini Bag 100 ML IVPB SCH ×3 (03:35→19:44)
[2021-09-01 07:16] LABS: Red Cell Distribution Width 20.1 % (11.5-14.5); White Blood Count 12.6 K/mcL (4.3-11.1)
[2021-09-01 07:17] LABS: Basophils # 0.1 K/mcL (0.0-0.2); Basophils % 0.7 %; Eosinophils # 0.1 K/mcL (0.0-0.6); Eosinophils % 0.4 %; Hematocrit 35.1 % (35.3-44.9); Hemoglobin 9.7 g/dL (11.5-15.4); Immature Granulocytes % 0.7 % (0-4); Lymphocytes # 1.3 K/mcL (0.6-4.6); Lymphocytes % 10.6 %; Mean Corpuscular HGB Conc 27.6 g/dL (31.6-35.5); Mean Corpuscular Hemoglobin 27.3 pg (28.0-33.3); Mean Corpuscular Volume 98.9 fL (83.0-100.0); Mean Platelet Volume 9.9 fL (9.4-12.4); Monocytes # 0.7 K/mcL (0.0-1.3); Monocytes % 5.6 %; Neutrophils # 10.3 K/mcL (1.6-8.9); Platelet Count 357 K/mcL (140-400); Red Blood Count 3.55 M/mcL (3.82-4.97)
[2021-09-01 07:21] LABS: Alanine Aminotransferase 5 Units/L (7-52); Albumin 2.7 g/dL (3.5-5.7); Albumin/Globulin Ratio 0.8 (1.1-2.2); Alkaline Phosphatase 55 Units/L (34-104); Aspartate Amino Transferase 14 Units/L (13-39); BUN/Creatinine Ratio 29 (6-26); Bilirubin,Total 0.3 mg/dL (0.3-1.0); Blood Urea Nitrogen 20 mg/dL (8-23); Calcium 8.5 mg/dL (8.6-10.3); Carbon Dioxide 26 mEq/L (23-29); Chloride 110 mEq/L (98-107); Globulin 3.6 g/dL (2.4-3.5); Glucose 109 mg/dL (70-105); Lactate Dehydrogenase 196 Units/L (140-271); Osmolality,Calculated 301 (280-300); Phosphorous 2.6 mg/dL (2.7-4.5); Potassium 3.4 mEq/L (3.5-5.1); Sodium 144 mEq/L (136-145); Total Protein 6.3 g/dL (6.4-8.9); eGFR For African Americans > 60 (> 60); eGFR For Non-African Americans > 60 (> 60)
[2021-09-01] MEDS: Budesonide/Formoterol 160/4.5 1 PUFF INH IH SCH ×2 (08:26→20:05)
[2021-09-01] MEDS ORDERED: Furosemide 20 MG TABLET PO SCH (09:00)
[2021-09-01] MEDS: Aspirin Enteric Coated 81 MG Tablet PO SCH (10:27)
[2021-09-01] MEDS: Magnesium Oxide 400 MG TABLET PO SCH (10:27)
[2021-09-01] MEDS: Multivit/Ca/Min/Fe/FA 1 TAB TABLET PO SCH (10:27)
[2021-09-01] MEDS: Gabapentin 100 MG CAPSULE PO SCH ×3 (10:29→21:25)
[2021-09-01] MEDS: DilTIAZem CD (24hr) 120 MG CAP.ER.24H PO SCH (10:29)
[2021-09-01] MEDS: Furosemide 20 MG/2 ML VIAL IVP SCH ×2 (10:31→19:45)
[2021-09-01 15:39] LABS: RBC,Pleural Fluid < 2000 RBC/mcL
[2021-09-01 16:05] LABS: Total Protein,Pleural Fluid 3.6 g/dL
[2021-09-01 17:15] LABS: Appearance of Pleural Fl Clear (Clear)
[2021-09-01] MEDS: Mirtazapine 15 MG TABLET PO SCH (19:45)
[2021-09-01] MEDS: Melatonin 3 MG TABLET PO SCH (19:45)
[2021-09-02] MEDS: Insulin LISPRO 300 UNITS/3 ML VIAL SUBQ SCH ×4 (00:34→18:40)
[2021-09-02] MEDS: Piperacillin/Tazobactam 3.375 GM in 0.9 % Sodium Chloride Mini Bag 100 ML IVPB SCH ×3 (04:00→21:39)
[2021-09-02] MEDS: Ipratropium/Albuterol Neb 3 ML IH SCH ×6 (04:07→23:47)
[2021-09-02 04:31] LABS: Basophils # 0.1 K/mcL (0.0-0.2); Basophils % 0.4 %; Eosinophils # 0.1 K/mcL (0.0-0.6); Hematocrit 30.4 % (35.3-44.9); Hemoglobin 8.9 g/dL (11.5-15.4); Immature Granulocytes % 0.4 % (0-4); Lymphocytes # 1.8 K/mcL (0.6-4.6); Lymphocytes % 14.3 %; Mean Corpuscular HGB Conc 29.3 g/dL (31.6-35.5); Mean Corpuscular Hemoglobin 27.3 pg (28.0-33.3); Mean Corpuscular Volume 93.3 fL (83.0-100.0); Mean Platelet Volume 9.6 fL (9.4-12.4); Monocytes # 0.8 K/mcL (0.0-1.3); Neutrophils # 9.8 K/mcL (1.6-8.9); Platelet Count 413 K/mcL (140-400); Red Blood Count 3.26 M/mcL (3.82-4.97); Red Cell Distribution Width 19.9 % (11.5-14.5); Segmented Neutrophils % 77.9 %; White Blood Count 12.6 K/mcL (4.3-11.1)
[2021-09-02 04:41] LABS: BUN/Creatinine Ratio 26 (6-26); Blood Urea Nitrogen 24 mg/dL (8-23); Calcium 8.6 mg/dL (8.6-10.3); Carbon Dioxide 29 mEq/L (23-29); Chloride 107 mEq/L (98-107); Glucose 112 mg/dL (70-105); Magnesium 1.9 mg/dL (1.6-2.6); Osmolality,Calculated 299 (280-300); Phosphorous 1.7 mg/dL (2.7-4.5); Potassium 3.7 mEq/L (3.5-5.1); Sodium 142 mEq/L (136-145); eGFR For African Americans > 60 (> 60); eGFR For Non-African Americans 58 (> 60)
[2021-09-02] MEDS: Budesonide/Formoterol 160/4.5 1 PUFF INH IH SCH ×2 (07:22→19:29)
[2021-09-02] MEDS: Multivit/Ca/Min/Fe/FA 1 TAB TABLET PO SCH (09:09)
[2021-09-02] MEDS: Aspirin Enteric Coated 81 MG Tablet PO SCH (09:10)
[2021-09-02] MEDS: DilTIAZem CD (24hr) 120 MG CAP.ER.24H PO SCH (09:10)
[2021-09-02] MEDS: Magnesium Oxide 400 MG TABLET PO SCH (09:11)
[2021-09-02] MEDS: Gabapentin 100 MG CAPSULE PO SCH ×3 (09:11→21:39)
[2021-09-02] MEDS: Furosemide 20 MG/2 ML VIAL IVP SCH ×2 (09:41→21:39)
[2021-09-02] MEDS ORDERED: Potassium Phosphate 44 MEQ in 0.9 % Sodium Chloride 250 ML IVPB ONE (12:31)
[2021-09-02] MEDS: Melatonin 3 MG TABLET PO SCH (21:38)
[2021-09-02] MEDS: Mirtazapine 15 MG TABLET PO SCH (21:39)
[2021-09-03] MEDS: Piperacillin/Tazobactam 3.375 GM in 0.9 % Sodium Chloride Mini Bag 100 ML IVPB SCH ×2 (04:02→10:56)
[2021-09-03] MEDS: Ipratropium/Albuterol Neb 3 ML IH SCH ×6 (04:29→23:25)
[2021-09-03 05:54] LABS: Basophils # 0.1 K/mcL (0.0-0.2); Basophils % 0.6 %; Eosinophils # 0.3 K/mcL (0.0-0.6); Eosinophils % 2.7 %; Hematocrit 30.1 % (35.3-44.9); Hemoglobin 8.9 g/dL (11.5-15.4); Immature Granulocytes % 0.3 % (0-4); Lymphocytes # 1.9 K/mcL (0.6-4.6); Lymphocytes % 18.2 %; Mean Corpuscular HGB Conc 29.6 g/dL (31.6-35.5); Mean Corpuscular Hemoglobin 27.1 pg (28.0-33.3); Mean Corpuscular Volume 91.8 fL (83.0-100.0); Mean Platelet Volume 9.7 fL (9.4-12.4); Monocytes # 0.7 K/mcL (0.0-1.3); Monocytes % 6.7 %; Neutrophils # 7.5 K/mcL (1.6-8.9); Platelet Count 408 K/mcL (140-400); Red Blood Count 3.28 M/mcL (3.82-4.97); Red Cell Distribution Width 19.7 % (11.5-14.5); Segmented Neutrophils % 71.5 %; White Blood Count 10.5 K/mcL (4.3-11.1)
[2021-09-03 06:38] LABS: BUN/Creatinine Ratio 28 (6-26); Blood Urea Nitrogen 23 mg/dL (8-23); Calcium 8.4 mg/dL (8.6-10.3); Carbon Dioxide 30 mEq/L (23-29); Chloride 106 mEq/L (98-107); Glucose 98 mg/dL (70-105); Magnesium 1.8 mg/dL (1.6-2.6); Osmolality,Calculated 300 (280-300); Phosphorous 3.1 mg/dL (2.7-4.5); Potassium 3.8 mEq/L (3.5-5.1); Sodium 143 mEq/L (136-145); eGFR For African Americans > 60 (> 60); eGFR For Non-African Americans > 60 (> 60)
[2021-09-03] MEDS: Budesonide/Formoterol 160/4.5 1 PUFF INH IH SCH ×2 (07:24→19:42)
[2021-09-03] MEDS: Gabapentin 100 MG CAPSULE PO SCH ×3 (10:49→22:26)
[2021-09-03] MEDS: Magnesium Oxide 400 MG TABLET PO SCH (10:49)
[2021-09-03] MEDS: Aspirin Enteric Coated 81 MG Tablet PO SCH (10:49)
[2021-09-03] MEDS: Multivit/Ca/Min/Fe/FA 1 TAB TABLET PO SCH (10:49)
[2021-09-03] MEDS: DilTIAZem CD (24hr) 120 MG CAP.ER.24H PO SCH (10:49)
[2021-09-03] MEDS: Furosemide 20 MG/2 ML VIAL IVP SCH ×2 (10:56→22:26)
[2021-09-03] MEDS: Acetylcysteine 10% 2 ML INHSOL IH SCH ×5 (11:36→23:25)
[2021-09-03] MEDS ORDERED: *HR* Metoprolol 5 MG/5 ML VIAL IVP ONE (12:18)
[2021-09-03 12:43] LABS: Fluid Source for Albumin R PLEURAL
[2021-09-03] MEDS: Meropenem 1,000 MG in 0.9 % Sodium Chloride 10 ML IVP SCH (17:02)
[2021-09-03] MEDS: Mirtazapine 15 MG TABLET PO SCH (22:25)
[2021-09-03] MEDS: Melatonin 3 MG TABLET PO SCH (22:26)
[2021-09-04] MEDS: Acetylcysteine 10% 2 ML INHSOL IH SCH ×6 (03:57→23:16)
[2021-09-04] MEDS: Ipratropium/Albuterol Neb 3 ML IH SCH ×6 (03:57→23:17)
[2021-09-04] MEDS: Meropenem 1,000 MG in 0.9 % Sodium Chloride 10 ML IVP SCH ×2 (06:08→17:20)
[2021-09-04] MEDS: Budesonide/Formoterol 160/4.5 1 PUFF INH IH SCH ×2 (07:06→20:39)
[2021-09-04] MEDS: Multivit/Ca/Min/Fe/FA 1 TAB TABLET PO SCH (08:24)
[2021-09-04] MEDS: Furosemide 20 MG/2 ML VIAL IVP SCH ×2 (08:24→22:08)
[2021-09-04] MEDS: Gabapentin 100 MG CAPSULE PO SCH ×3 (08:24→22:08)
[2021-09-04] MEDS: Magnesium Oxide 400 MG TABLET PO SCH (08:24)
[2021-09-04] MEDS: DilTIAZem CD (24hr) 120 MG CAP.ER.24H PO SCH (08:24)
[2021-09-04] MEDS: Aspirin Enteric Coated 81 MG Tablet PO SCH (08:24)
[2021-09-04 08:56] LABS: Basophils # 0.1 K/mcL (0.0-0.2); Basophils % 0.6 %; Eosinophils # 0.3 K/mcL (0.0-0.6); Eosinophils % 2.5 %; Hematocrit 32.4 % (35.3-44.9); Hemoglobin 9.4 g/dL (11.5-15.4); Immature Granulocytes % 0.5 % (0-4); Lymphocytes # 1.8 K/mcL (0.6-4.6); Lymphocytes % 16.9 %; Mean Corpuscular Hemoglobin 27.1 pg (28.0-33.3); Mean Corpuscular Volume 93.4 fL (83.0-100.0); Mean Platelet Volume 9.5 fL (9.4-12.4); Monocytes # 0.7 K/mcL (0.0-1.3); Monocytes % 6.4 %; Platelet Count 386 K/mcL (140-400); Red Blood Count 3.47 M/mcL (3.82-4.97); Red Cell Distribution Width 19.4 % (11.5-14.5); Segmented Neutrophils % 73.1 %; White Blood Count 10.9 K/mcL (4.3-11.1)
[2021-09-04 09:15] LABS: BUN/Creatinine Ratio 28 (6-26); Blood Urea Nitrogen 22 mg/dL (8-23); Calcium 8.7 mg/dL (8.6-10.3); Carbon Dioxide 33 mEq/L (23-29); Chloride 103 mEq/L (98-107); Glucose 95 mg/dL (70-105); Osmolality,Calculated 295 (280-300); Potassium 3.8 mEq/L (3.5-5.1); Sodium 141 mEq/L (136-145); eGFR For African Americans > 60 (> 60); eGFR For Non-African Americans > 60 (> 60)
[2021-09-04] MEDS ORDERED: *HR* Succinylcholine 200 MG/10 ML VIAL IVP ONE (13:52)
[2021-09-04] MEDS ORDERED: Ondansetron 4 MG/2 ML VIAL ONE (13:52)
[2021-09-04] MEDS ORDERED: Lidocaine -MPF 2% 5 ML VIAL ONE (13:52)
[2021-09-04] MEDS ORDERED: Lidocaine HCL 4 ML Topical Solution (Laryng-O-Jet Kit Sterile Pak) TP ONE (13:54)
[2021-09-04] MEDS ORDERED: *HR* Propofol 200 MG/20 ML VIAL IVP ONE (13:54)
[2021-09-04] MEDS: Ringers Solution, Lactated 1,000 ML IVC SCH (14:10)
[2021-09-04 17:55] LABS: Source of Body Fluid LEFT UPPER LOBE LUNG
[2021-09-04 19:35] LABS: Appearance of Body Fluid Cloudy (Clear); Source of Body Fluid RIGHT LOWER LOBE LUN
[2021-09-04 19:35] LABS: Appearance of Body Fluid Hazy (Clear); Volume of Body Fluid 29 mL
[2021-09-04 19:36] LABS: Volume of Body Fluid 22 mL
[2021-09-04] MEDS: Melatonin 3 MG TABLET PO SCH (22:08)
[2021-09-04] MEDS: Mirtazapine 15 MG TABLET PO SCH (22:08)
[2021-09-05] MEDS ORDERED: Acetylcysteine 10% 2 ML INHSOL IH PRN (01:26)
[2021-09-05] MEDS ORDERED: Ipratropium/Albuterol Neb 3 ML IH PRN (01:27)
[2021-09-05] MEDS: Meropenem 1,000 MG in 0.9 % Sodium Chloride 10 ML IVP SCH ×2 (06:31→17:14)
[2021-09-05] MEDS: Gabapentin 100 MG CAPSULE PO SCH ×3 (07:49→21:36)
[2021-09-05] MEDS: Multivit/Ca/Min/Fe/FA 1 TAB TABLET PO SCH (07:49)
[2021-09-05] MEDS: Furosemide 20 MG/2 ML VIAL IVP SCH (07:49)
[2021-09-05] MEDS: Aspirin Enteric Coated 81 MG Tablet PO SCH (07:49)
[2021-09-05] MEDS: DilTIAZem CD (24hr) 120 MG CAP.ER.24H PO SCH (07:49)
[2021-09-05] MEDS: Magnesium Oxide 400 MG TABLET PO SCH (07:49)
[2021-09-05] MEDS: Ringers Solution, Lactated 1,000 ML IVC SCH (07:50)
[2021-09-05] MEDS: Budesonide/Formoterol 160/4.5 1 PUFF INH IH SCH ×2 (07:57→22:12)
[2021-09-05 08:28] LABS: Basophils % 0.1 %; Hematocrit 32.3 % (35.3-44.9); Hemoglobin 9.4 g/dL (11.5-15.4); Immature Granulocytes % 0.5 % (0-4); Lymphocytes # 1.4 K/mcL (0.6-4.6); Lymphocytes % 11.3 %; Mean Corpuscular HGB Conc 29.1 g/dL (31.6-35.5); Mean Corpuscular Hemoglobin 26.8 pg (28.0-33.3); Mean Platelet Volume 9.6 fL (9.4-12.4); Monocytes # 0.5 K/mcL (0.0-1.3); Monocytes % 3.6 %; Neutrophils # 10.5 K/mcL (1.6-8.9); Platelet Count 429 K/mcL (140-400); Red Blood Count 3.51 M/mcL (3.82-4.97); Red Cell Distribution Width 19.2 % (11.5-14.5); Segmented Neutrophils % 84.5 %; White Blood Count 12.5 K/mcL (4.3-11.1)
[2021-09-05 08:43] LABS: Calcium 7.6 mg/dL (8.6-10.3); Potassium 4.5 mEq/L (3.5-5.1)
[2021-09-05] MEDS ORDERED: E-Z-PAQUE (BARIUM SULF) SUSP 1 BOTTLE PO ONE (12:43)
[2021-09-05] MEDS ORDERED: E-Z-HD (BARIUM SULF) SUSPENSION PO ONE (12:43)
[2021-09-05] MEDS: Acetylcysteine 10% 2 ML INHSOL IH SCH ×2 (15:44→22:12)
[2021-09-05] MEDS: Ipratropium/Albuterol Neb 3 ML IH SCH ×2 (15:44→22:12)
[2021-09-05] MEDS: Melatonin 3 MG TABLET PO SCH (21:36)
[2021-09-05] MEDS: Mirtazapine 15 MG TABLET PO SCH (21:36)
[2021-09-06] MEDS: Ipratropium/Albuterol Neb 3 ML IH SCH ×4 (03:47→21:53)
[2021-09-06 04:38] LABS: Basophils % 0.4 %; Eosinophils # 0.1 K/mcL (0.0-0.6); Eosinophils % 0.8 %; Hematocrit 28.7 % (35.3-44.9); Hemoglobin 8.6 g/dL (11.5-15.4); Immature Granulocytes % 0.4 % (0-4); Lymphocytes % 20.6 %; Mean Corpuscular Hemoglobin 27.2 pg (28.0-33.3); Mean Corpuscular Volume 90.8 fL (83.0-100.0); Mean Platelet Volume 9.6 fL (9.4-12.4); Monocytes # 0.6 K/mcL (0.0-1.3); Monocytes % 6.2 %; Neutrophils # 7.1 K/mcL (1.6-8.9); Platelet Count 422 K/mcL (140-400); Red Blood Count 3.16 M/mcL (3.82-4.97); Red Cell Distribution Width 18.8 % (11.5-14.5); Segmented Neutrophils % 71.6 %; White Blood Count 9.9 K/mcL (4.3-11.1)
[2021-09-06 04:53] LABS: BUN/Creatinine Ratio 37 (6-26); Blood Urea Nitrogen 36 mg/dL (8-23); Calcium 8.3 mg/dL (8.6-10.3); Carbon Dioxide 31 mEq/L (23-29); Chloride 101 mEq/L (98-107); Glucose 106 mg/dL (70-105); Magnesium 2.2 mg/dL (1.6-2.6); Osmolality,Calculated 295 (280-300); Potassium 3.9 mEq/L (3.5-5.1); Sodium 138 mEq/L (136-145); eGFR For African Americans > 60 (> 60); eGFR For Non-African Americans 54 (> 60)
[2021-09-06] MEDS: Meropenem 1,000 MG in 0.9 % Sodium Chloride 10 ML IVP SCH ×2 (06:35→18:08)
[2021-09-06] MEDS: Ringers Solution, Lactated 1,000 ML IVC SCH (07:26)
[2021-09-06] MEDS: Aspirin Enteric Coated 81 MG Tablet PO SCH (07:50)
[2021-09-06] MEDS: Gabapentin 100 MG CAPSULE PO SCH ×3 (07:50→20:07)
[2021-09-06] MEDS: Multivit/Ca/Min/Fe/FA 1 TAB TABLET PO SCH (07:50)
[2021-09-06] MEDS: Furosemide 20 MG/2 ML VIAL IVP SCH (07:50)
[2021-09-06] MEDS: Magnesium Oxide 400 MG TABLET PO SCH (07:50)
[2021-09-06] MEDS: DilTIAZem CD (24hr) 120 MG CAP.ER.24H PO SCH (07:50)
[2021-09-06] MEDS: Budesonide/Formoterol 160/4.5 1 PUFF INH IH SCH ×2 (10:41→21:53)
[2021-09-06] MEDS: Mirtazapine 15 MG TABLET PO SCH (20:08)
[2021-09-06] MEDS: Melatonin 3 MG TABLET PO SCH (20:08)
[2021-09-07 01:37] LABS: Basophils % 0.3 %; Eosinophils # 0.1 K/mcL (0.0-0.6); Eosinophils % 1.3 %; Hematocrit 31.2 % (35.3-44.9); Hemoglobin 9.1 g/dL (11.5-15.4); Immature Granulocytes % 0.3 % (0-4); Lymphocytes # 1.8 K/mcL (0.6-4.6); Lymphocytes % 17.8 %; Mean Corpuscular HGB Conc 29.2 g/dL (31.6-35.5); Mean Corpuscular Hemoglobin 26.5 pg (28.0-33.3); Mean Corpuscular Volume 90.7 fL (83.0-100.0); Mean Platelet Volume 9.6 fL (9.4-12.4); Monocytes # 0.8 K/mcL (0.0-1.3); Monocytes % 7.6 %; Neutrophils # 7.3 K/mcL (1.6-8.9); Platelet Count 389 K/mcL (140-400); Red Blood Count 3.44 M/mcL (3.82-4.97); Segmented Neutrophils % 72.7 %; White Blood Count 10.1 K/mcL (4.3-11.1)
[2021-09-07 01:52] LABS: BUN/Creatinine Ratio 36 (6-26); Blood Urea Nitrogen 29 mg/dL (8-23); Calcium 8.6 mg/dL (8.6-10.3); Carbon Dioxide 30 mEq/L (23-29); Chloride 102 mEq/L (98-107); Glucose 98 mg/dL (70-105); Osmolality,Calculated 294 (280-300); Potassium 3.7 mEq/L (3.5-5.1); Sodium 139 mEq/L (136-145); eGFR For African Americans > 60 (> 60); eGFR For Non-African Americans > 60 (> 60)
[2021-09-07] MEDS: Ipratropium/Albuterol Neb 3 ML IH SCH ×4 (03:37→22:47)
[2021-09-07] MEDS: Meropenem 1,000 MG in 0.9 % Sodium Chloride 10 ML IVP SCH ×2 (06:05→18:25)
[2021-09-07] MEDS: Aspirin Enteric Coated 81 MG Tablet PO SCH (09:40)
[2021-09-07] MEDS: Multivit/Ca/Min/Fe/FA 1 TAB TABLET PO SCH (09:41)
[2021-09-07] MEDS: DilTIAZem CD (24hr) 120 MG CAP.ER.24H PO SCH (09:41)
[2021-09-07] MEDS: Gabapentin 100 MG CAPSULE PO SCH ×3 (09:41→22:08)
[2021-09-07] MEDS: Magnesium Oxide 400 MG TABLET PO SCH (09:41)
[2021-09-07] MEDS: Budesonide/Formoterol 160/4.5 1 PUFF INH IH SCH ×2 (10:09→22:47)
[2021-09-07] MEDS: Furosemide 20 MG/2 ML VIAL IVP SCH (10:53)
[2021-09-07] MEDS: Acetaminophen 325 MG TABLET PO PRN (15:43)
[2021-09-07] MEDS: Mirtazapine 15 MG TABLET PO SCH (22:08)
[2021-09-07] MEDS: Melatonin 3 MG TABLET PO SCH (22:08)
[2021-09-08] MEDS: Ipratropium/Albuterol Neb 3 ML IH SCH ×4 (04:06→22:29)
[2021-09-08] MEDS: Meropenem 1,000 MG in 0.9 % Sodium Chloride 10 ML IVP SCH ×2 (05:34→16:31)
[2021-09-08 06:07] LABS: Basophils % 0.4 %; Eosinophils # 0.2 K/mcL (0.0-0.6); Eosinophils % 2.5 %; Hematocrit 32.3 % (35.3-44.9); Hemoglobin 9.4 g/dL (11.5-15.4); Immature Granulocytes % 0.3 % (0-4); Lymphocytes # 1.8 K/mcL (0.6-4.6); Lymphocytes % 19.4 %; Mean Corpuscular HGB Conc 29.1 g/dL (31.6-35.5); Mean Corpuscular Hemoglobin 26.3 pg (28.0-33.3); Mean Corpuscular Volume 90.5 fL (83.0-100.0); Mean Platelet Volume 9.3 fL (9.4-12.4); Monocytes # 0.7 K/mcL (0.0-1.3); Monocytes % 7.5 %; Neutrophils # 6.3 K/mcL (1.6-8.9); Platelet Count 357 K/mcL (140-400); Red Blood Count 3.57 M/mcL (3.82-4.97); Red Cell Distribution Width 18.6 % (11.5-14.5); Segmented Neutrophils % 69.9 %
[2021-09-08 06:27] LABS: BUN/Creatinine Ratio 33 (6-26); Blood Urea Nitrogen 27 mg/dL (8-23); Calcium 8.2 mg/dL (8.6-10.3); Carbon Dioxide 30 mEq/L (23-29); Chloride 103 mEq/L (98-107); Glucose 94 mg/dL (70-105); Osmolality,Calculated 293 (280-300); Potassium 3.8 mEq/L (3.5-5.1); Sodium 139 mEq/L (136-145); eGFR For African Americans > 60 (> 60); eGFR For Non-African Americans > 60 (> 60)
[2021-09-08] MEDS: Furosemide 20 MG/2 ML VIAL IVP SCH (07:44)
[2021-09-08] MEDS: Aspirin Enteric Coated 81 MG Tablet PO SCH (07:44)
[2021-09-08] MEDS: DilTIAZem CD (24hr) 120 MG CAP.ER.24H PO SCH (07:44)
[2021-09-08] MEDS: Magnesium Oxide 400 MG TABLET PO SCH (07:44)
[2021-09-08] MEDS: Multivit/Ca/Min/Fe/FA 1 TAB TABLET PO SCH (07:44)
[2021-09-08] MEDS: Gabapentin 100 MG CAPSULE PO SCH ×3 (07:44→19:39)
[2021-09-08] MEDS: Budesonide/Formoterol 160/4.5 1 PUFF INH IH SCH ×2 (10:39→22:29)
[2021-09-08] MEDS: Melatonin 3 MG TABLET PO SCH (19:39)
[2021-09-08] MEDS: Mirtazapine 15 MG TABLET PO SCH (19:39)
[2021-09-09] MEDS: Ipratropium/Albuterol Neb 3 ML IH SCH ×4 (03:39→22:15)
[2021-09-09] MEDS: Meropenem 1,000 MG in 0.9 % Sodium Chloride 10 ML IVP SCH ×2 (05:05→18:12)
[2021-09-09] MEDS: DilTIAZem CD (24hr) 120 MG CAP.ER.24H PO SCH (07:53)
[2021-09-09] MEDS: Gabapentin 100 MG CAPSULE PO SCH ×3 (07:53→20:33)
[2021-09-09] MEDS: Magnesium Oxide 400 MG TABLET PO SCH (07:53)
[2021-09-09] MEDS: Multivit/Ca/Min/Fe/FA 1 TAB TABLET PO SCH (07:53)
[2021-09-09] MEDS: Aspirin Enteric Coated 81 MG Tablet PO SCH (07:53)
[2021-09-09] MEDS: Furosemide 20 MG/2 ML VIAL IVP SCH (07:53)
[2021-09-09 08:25] LABS: Basophils % 0.5 %; Eosinophils # 0.2 K/mcL (0.0-0.6); Eosinophils % 2.7 %; Hematocrit 30.5 % (35.3-44.9); Immature Granulocytes % 0.5 % (0-4); Lymphocytes # 1.8 K/mcL (0.6-4.6); Lymphocytes % 21.6 %; Mean Corpuscular HGB Conc 29.5 g/dL (31.6-35.5); Mean Corpuscular Hemoglobin 26.2 pg (28.0-33.3); Mean Corpuscular Volume 88.9 fL (83.0-100.0); Mean Platelet Volume 9.7 fL (9.4-12.4); Monocytes # 0.7 K/mcL (0.0-1.3); Monocytes % 8.2 %; Neutrophils # 5.4 K/mcL (1.6-8.9); Platelet Count 394 K/mcL (140-400); Red Blood Count 3.43 M/mcL (3.82-4.97); Red Cell Distribution Width 18.6 % (11.5-14.5); Segmented Neutrophils % 66.5 %; White Blood Count 8.2 K/mcL (4.3-11.1)
[2021-09-09 08:58] LABS: BUN/Creatinine Ratio 36 (6-26); Blood Urea Nitrogen 27 mg/dL (8-23); Calcium 8.2 mg/dL (8.6-10.3); Carbon Dioxide 31 mEq/L (23-29); Chloride 102 mEq/L (98-107); Glucose 97 mg/dL (70-105); Osmolality,Calculated 291 (280-300); Potassium 3.8 mEq/L (3.5-5.1); Sodium 138 mEq/L (136-145); eGFR For African Americans > 60 (> 60); eGFR For Non-African Americans > 60 (> 60)
[2021-09-09] MEDS: Budesonide/Formoterol 160/4.5 1 PUFF INH IH SCH ×2 (09:23→22:15)
[2021-09-09] MEDS: Mirtazapine 15 MG TABLET PO SCH (20:33)
[2021-09-09] MEDS: Melatonin 3 MG TABLET PO SCH (20:37)
[2021-09-10] MEDS: Ipratropium/Albuterol Neb 3 ML IH SCH ×4 (03:34→22:01)
[2021-09-10 04:11] LABS: Basophils % 0.5 %; Eosinophils # 0.2 K/mcL (0.0-0.6); Eosinophils % 2.7 %; Hemoglobin 9.3 g/dL (11.5-15.4); Immature Granulocytes % 0.6 % (0-4); Lymphocytes # 1.9 K/mcL (0.6-4.6); Lymphocytes % 22.7 %; Mean Corpuscular HGB Conc 29.1 g/dL (31.6-35.5); Mean Corpuscular Hemoglobin 26.2 pg (28.0-33.3); Mean Corpuscular Volume 90.1 fL (83.0-100.0); Monocytes # 0.7 K/mcL (0.0-1.3); Monocytes % 8.3 %; Neutrophils # 5.5 K/mcL (1.6-8.9); Platelet Count 404 K/mcL (140-400); Red Blood Count 3.55 M/mcL (3.82-4.97); Red Cell Distribution Width 18.7 % (11.5-14.5); Segmented Neutrophils % 65.2 %; White Blood Count 8.4 K/mcL (4.3-11.1)
[2021-09-10 04:28] LABS: BUN/Creatinine Ratio 37 (6-26); Blood Urea Nitrogen 31 mg/dL (8-23); Calcium 8.6 mg/dL (8.6-10.3); Carbon Dioxide 29 mEq/L (23-29); Chloride 102 mEq/L (98-107); Glucose 101 mg/dL (70-105); Osmolality,Calculated 297 (280-300); Potassium 3.6 mEq/L (3.5-5.1); Sodium 140 mEq/L (136-145); eGFR For African Americans > 60 (> 60); eGFR For Non-African Americans > 60 (> 60)
[2021-09-10] MEDS: Meropenem 1,000 MG in 0.9 % Sodium Chloride 10 ML IVP SCH (05:28)
[2021-09-10] MEDS: DilTIAZem CD (24hr) 120 MG CAP.ER.24H PO SCH (08:00)
[2021-09-10] MEDS: Aspirin Enteric Coated 81 MG Tablet PO SCH (08:00)
[2021-09-10] MEDS: Furosemide 20 MG/2 ML VIAL IVP SCH (08:01)
[2021-09-10] MEDS: Magnesium Oxide 400 MG TABLET PO SCH (08:01)
[2021-09-10] MEDS: Gabapentin 100 MG CAPSULE PO SCH ×3 (08:01→21:19)
[2021-09-10] MEDS: Multivit/Ca/Min/Fe/FA 1 TAB TABLET PO SCH (08:01)
[2021-09-10] MEDS: Budesonide/Formoterol 160/4.5 1 PUFF INH IH SCH ×2 (09:52→22:01)
[2021-09-10] MEDS: Melatonin 3 MG TABLET PO SCH (21:19)
[2021-09-10] MEDS: Mirtazapine 15 MG TABLET PO SCH (21:19)
[2021-09-11] MEDS: Ipratropium/Albuterol Neb 3 ML IH SCH ×4 (03:57→22:29)
[2021-09-11] MEDS: Multivit/Ca/Min/Fe/FA 1 TAB TABLET PO SCH (08:48)
[2021-09-11] MEDS: Aspirin Enteric Coated 81 MG Tablet PO SCH (08:48)
[2021-09-11] MEDS: DilTIAZem CD (24hr) 120 MG CAP.ER.24H PO SCH (08:49)
[2021-09-11] MEDS: Gabapentin 100 MG CAPSULE PO SCH ×3 (08:49→21:27)
[2021-09-11] MEDS: Magnesium Oxide 400 MG TABLET PO SCH (08:49)
[2021-09-11] MEDS: Furosemide 20 MG TABLET PO SCH (08:53)
[2021-09-11] MEDS: Budesonide/Formoterol 160/4.5 1 PUFF INH IH SCH ×2 (10:38→22:29)
[2021-09-11] MEDS: Melatonin 3 MG TABLET PO SCH (21:27)
[2021-09-11] MEDS: Mirtazapine 15 MG TABLET PO SCH (21:27)
[2021-09-12] MEDS: Ipratropium/Albuterol Neb 3 ML IH SCH ×4 (03:32→21:25)
[2021-09-12] MEDS: Magnesium Oxide 400 MG TABLET PO SCH (09:44)
[2021-09-12] MEDS: DilTIAZem CD (24hr) 120 MG CAP.ER.24H PO SCH (09:44)
[2021-09-12] MEDS: Furosemide 20 MG TABLET PO SCH (09:44)
[2021-09-12] MEDS: Multivit/Ca/Min/Fe/FA 1 TAB TABLET PO SCH (09:44)
[2021-09-12] MEDS: Gabapentin 100 MG CAPSULE PO SCH ×3 (09:44→21:04)
[2021-09-12] MEDS: Aspirin Enteric Coated 81 MG Tablet PO SCH (09:44)
[2021-09-12] MEDS: Budesonide/Formoterol 160/4.5 1 PUFF INH IH SCH ×2 (10:20→21:26)
[2021-09-12] MEDS: Mirtazapine 15 MG TABLET PO SCH (21:04)
[2021-09-12] MEDS: Melatonin 3 MG TABLET PO SCH (21:04)
[2021-09-13] MEDS: Ipratropium/Albuterol Neb 3 ML IH SCH ×4 (03:56→21:27)
[2021-09-13] MEDS: Magnesium Oxide 400 MG TABLET PO SCH (09:57)
[2021-09-13] MEDS: DilTIAZem CD (24hr) 120 MG CAP.ER.24H PO SCH (09:57)
[2021-09-13] MEDS: Gabapentin 100 MG CAPSULE PO SCH ×3 (09:57→21:21)
[2021-09-13] MEDS: Furosemide 20 MG TABLET PO SCH (09:57)
[2021-09-13] MEDS: Multivit/Ca/Min/Fe/FA 1 TAB TABLET PO SCH (09:57)
[2021-09-13] MEDS: Aspirin Enteric Coated 81 MG Tablet PO SCH (09:57)
[2021-09-13] MEDS: Budesonide/Formoterol 160/4.5 1 PUFF INH IH SCH ×2 (10:22→21:27)
[2021-09-13] MEDS: Mirtazapine 15 MG TABLET PO SCH (21:21)
[2021-09-13] MEDS: Melatonin 3 MG TABLET PO SCH (21:21)
[2021-09-14] MEDS: Ipratropium/Albuterol Neb 3 ML IH SCH ×4 (03:13→22:30)
[2021-09-14] MEDS: Budesonide/Formoterol 160/4.5 1 PUFF INH IH SCH ×2 (11:03→22:30)
[2021-09-14] MEDS: Gabapentin 100 MG CAPSULE PO SCH ×3 (11:18→21:40)
[2021-09-14] MEDS: Magnesium Oxide 400 MG TABLET PO SCH (11:18)
[2021-09-14] MEDS: Aspirin Enteric Coated 81 MG Tablet PO SCH (11:18)
[2021-09-14] MEDS: DilTIAZem CD (24hr) 120 MG CAP.ER.24H PO SCH (11:19)
[2021-09-14] MEDS: Multivit/Ca/Min/Fe/FA 1 TAB TABLET PO SCH (11:19)
[2021-09-14] MEDS: Furosemide 20 MG TABLET PO SCH (11:19)
[2021-09-14] MEDS: Acetaminophen 325 MG TABLET PO PRN (18:33)
[2021-09-14] MEDS: Mirtazapine 15 MG TABLET PO SCH (21:38)
[2021-09-14] MEDS: Melatonin 3 MG TABLET PO SCH (21:38)
[2021-09-15] MEDS: Ipratropium/Albuterol Neb 3 ML IH SCH ×3 (03:58→15:50)
[2021-09-15] MEDS: Aspirin Enteric Coated 81 MG Tablet PO SCH (07:53)
[2021-09-15] MEDS: Furosemide 20 MG TABLET PO SCH (07:53)
[2021-09-15] MEDS: Multivit/Ca/Min/Fe/FA 1 TAB TABLET PO SCH (07:53)
[2021-09-15] MEDS: Gabapentin 100 MG CAPSULE PO SCH ×2 (07:53→15:28)
[2021-09-15] MEDS: Magnesium Oxide 400 MG TABLET PO SCH (07:53)
[2021-09-15] MEDS: DilTIAZem CD (24hr) 120 MG CAP.ER.24H PO SCH (07:54)
[2021-09-15] MEDS: Budesonide/Formoterol 160/4.5 1 PUFF INH IH SCH (10:10)
[2021-09-15 16:07] VITALS: BP 110/68; PULSE 92; TEMP 98.6; O2SAT 90
[2021-09-15 20:06] LABS: Adenovirus Not Detected (Not Detect); Bordetella Pertussis Not Detected (Not Detect); Chlamydophila pneumoniae Not Detected (Not Detect); Coronavirus 229E Not Detected (Not Detect); Coronavirus HKU1 Not Detected (Not Detect); Coronavirus NL63 Not Detected (Not Detect); Coronavirus OC43 Not Detected (Not Detect); Human Metapneumovirus Not Detected (Not Detect); Human Rhinovirus/Enterovirus Not Detected (Not Detect); Influenza A Subtype 2009 H1 Not Detected (Not Detect); Influenza B Not Detected (Not Detect); Mycoplasma pneumoniae Not Detected (Not Detect); Parainfluenza Virus 1 Not Detected (Not Detect); Parainfluenza Virus 2 Not Detected (Not Detect); Parainfluenza Virus 3 Not Detected (Not Detect); Parainfluenza Virus 4 Not Detected (Not Detect); Respiratory Syncytial Virus Not Detected (Not Detect); SARS-CoV-2 Not Detected (Not Detect)
== END 2021-09-15 19:52 | DRG 177 ==
LOC: 2ANU → SUATTDRO 08-31 00:37 → 2ANU 08-31 11:35 → SUATTDRO 08-31 12:03
PROVIDERS: ADMIT Family Medicine; ATTEND Internal Medicine